=== PATIENT | male | born 1940 | race Caucasian/White ===

== ENCOUNTER 2018-02-04 13:18 | Observation (INO) | payer MEDICARE ==
--- NOTE | 2018-02-04 14:31 | RAD REPORT ---
EXAM DESCRIPTION: CT - Head Brain Wo Cont - 02/04/2018 2:23 pm CLINICAL HISTORY: Dizziness COMPARISON: 2013 TECHNIQUE: Computed axial tomography of the head was obtained. IV contrast was not requested. All CT scans are performed using dose optimization technique as appropriate and may include automated exposure control or mA/KV adjustment according to patient size. FINDINGS: An intracranial bleed is not seen . The ventricles are normal in caliber. No extra-axial fluid collection is noted. Fluid within the sinuses/ mastoids is not seen. IMPRESSION: No acute intracranial abnormality is seen. If patient's symptoms persist MRI of the bra in would be recommended.
[2018-02-04] MEDS ORDERED: NA CHLORIDE 0.9% 1,000 ML ONE (14:43)
[2018-02-04 14:56] LABS: Absolute Lymphocytes (CBC) 1.1 K/uL (0.7-4.9); Absolute Monocytes 0.4 K/uL (0.1-1.3); Absolute Neutrophil 2.8 K/uL (1.8-8.0); Basophils % 0.5 % (0-1.3); Eosinophils % 1.3 % (0-4.4); Hematocrit 37.9 % (39.6-49.0); Lymphocytes % 24.4 % (15.3-44.8); MCH 31.2 pg (27.0-35.0); MPV 8.5 fL (7.6-11.3); Monocytes % 8.2 % (3.3-12.3); RBC Red Blood Cell Count 4.12 M/uL (4.33-5.43)
--- NOTE | 2018-02-04 15:04 | RAD REPORT ---
EXAM DESCRIPTION: Corey Single View02/04/2018 2:57 pm CLINICAL HISTORY: Cough COMPARISON: 2013 FINDINGS: The lungs appear clear of acute infiltrate. The heart is normal size IMPRESSION: No acute abnormalities displayed
[2018-02-04 15:08] LABS: Protime INR 0.95
[2018-02-04 15:22] LABS: ALT/SGPT 8 U/L (12-78); AST/SGOT 15 U/L (15-37); Albumin 3.9 g/dL (3.4-5.0); Alkaline Phosphatase 85 U/L (45-117); BUN Blood Urea Nitrogen 12 mg/dL (7-18); Bicarbonate 26 mmol/L (21-32); Bilirubin Direct 0.1 mg/dL (0-0.2); Bilirubin Total 0.6 mg/dL (0.2-1.0); Glucose Level 116 mg/dL (74-106); Lipase 167 U/L (73-393); Magnesium 2.5 mg/dL (1.8-2.4); NT PRO-BNP 851 pg/mL (<450); Potassium 4.3 mmol/L (3.5-5.1); Protein, Total 7.3 g/dL (6.4-8.2); Sodium Level 134 mmol/L (136-145); Troponin (Emerg Dept Use Only) < 0.02 ng/mL (0.0-0.045)
--- NOTE | 2018-02-04 15:49 | ER ---
Nurse's Notes [facility] Name: Sumanth Louis Age: 77 yrs Sex: Male : 1940 Arrival Date: 02/04/2018 Time: 13:22 Bed 28 Private MD: Rafa Barnes Diagnosis: Parkinson's disease;Headache;Weakness;Unspecified kidney failure Presentation: 02/04 13:29 Presenting complaint: Child states: TROUBLE WALKING AND DIZZINESS. Transition of care: bp patient was not received from another setting of care. Onset of symptoms is unknown. Risk Assessment: Do you want to hurt yourself or someone else? Patient reports no desire to harm self or others. Initial Sepsis Screen: Does the patient meet any 2 criteria? No. Patient's initial sepsis screen is negative. Does the patient have a suspected source of infection? No. Patient's initial sepsis screen is negative. Care prior to arrival: None. 13:29 Method Of Arrival: Wheelchair bp 13:29 Acuity: IRINA 3 bp Triage Assessment: 13:31 General: Appears in no apparent distress. comfortable, unkempt, Behavior is calm, bp cooperative. Pain: Denies pain. Historical: - Allergies: 13:31 No Known Allergies; bp - Home Meds: 13:34 carbidopa-levodopa 50-200 mg Oral TbER 1 tab 3 times per day [Active]; bp - PMHx: 13:31 Parkinsons; Hernia; bp - Immunization history:: Adult Immunizations up to date. - Social history:: Smoking status: Patient/guardian denies using tobacco. - Ebola Screening: : Patient negative for fever greater than or equal to 101.5 degrees Fahrenheit, and additional compatible Ebola Virus Disease symptoms Patient denies exposure to infectious person Patient denies travel to an Ebola-affected area in the 21 days before illness onset No symptoms or risks identified at this time. Screenin:36 Abuse screen: Denies threats or abuse. Nutritional screening: No deficits noted. tw2 Tuberculosis screening: No symptoms or risk factors identified. Fall Risk None identified. Assessment: 14:04 General: Appears slender, unkempt, well developed, well nourished, Behavior is calm, tl3 cooperative, appropriate for age. Pain: Denies pain. Neuro: Level of Consciousness is awake, alert, obeys commands, Oriented to person, place, time, situation, pt states he has problems talking, family states this is pt norm with Parkinson's . Neuro: Reports dizziness. Cardiovascular: Patient's skin is warm and dry. Rhythm is regular. Respiratory: Airway is patent Respiratory effort is even, unlabored, Respiratory pattern is regular, symmetrical. GI: Reports constipation. : No signs and/or symptoms were reported regarding the genitourinary system. EENT: No signs and/or symptoms were reported regarding the EENT system. Derm: Skin is fragile. Musculoskeletal: Reports weakness in right leg and left leg. 15:55 Reassessment: Patient appears in no apparent distress at this time. No changes from tl3 previously documented assessment. Patient and/or family updated on plan of care and expected duration. Pain level reassessed. Patient is alert, oriented x 3, equal unlabored respirations, skin warm/dry/pink. 16:50 Reassessment: Patient appears in no apparent distress at this time. No changes from tl3 previously documented assessment. Patient and/or family updated on plan of care and expected duration. Pain level reassessed. Patient is alert, oriented x 3, equal unlabored respirations, skin warm/dry/pink. Vital Signs: 13:31 BP 95 / 65; Pulse 63; Resp 18; Temp 97.7; Pulse Ox 100% ; Weight 63.5 kg; Height 5 ft. bp 8 in. (172.72 cm); 14:04 BP 126 / 66; Pulse 61; Resp 18; Pulse Ox 100% on R/A; tl3 15:55 BP 186 / 87; Pulse 68; Resp 18; Pulse Ox 100% on R/A; tl3 16:50 BP 180 / 88; Pulse 78; Resp 18; Pulse Ox 100% ; tl3 13:31 Body Mass Index 21.29 (63.50 kg, 172.72 cm) bp ED Course: 13:22 Patient arrived in ED. as 13:22 Rafa Barnes DO is Private Physician. as 13:30 Triage completed. bp 13:31 Arm band placed on left wrist. bp 13:36 Placed in gown. Adult w/ patient. 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 Pulse ox on. NIBP on. tw2 14:04 Jessica Richter, SOCORRO is Primary Nurse. tl3 14:04 No provider procedures requiring assistance completed. Initial lab(s) drawn, by me. tl3 Inserted saline lock: 20 gauge in right antecubital area, using aseptic technique. Blood collected. 14:06 Wood Henry MD is Attending Physician. abhi 14:22 CT Head Brain wo Cont In Process Unspecified. EDMS 14:22 CT completed. Patient tolerated procedure well. Patient moved to CT via wheelchair. sj Patient taken to ultrasound. Patient moved back from CT. 14:48 US Carotid Artery Bilateral In Process Unspecified. EDMS 14:57 XRAY Chest (1 view) In Process Unspecified. EDMS 14:57 Ultrasound completed. Patient tolerated well. aa4 15:38 EKG done, by sterile process tech. reviewed by Wood Henry MD. 3 15:48 Juan Diego Mccormick MD is Hospitalizing Provider. abhi 16:44 MRI Stroke Protocol Sent. tl3 16:50 Patient admitted, IV remains in place. tl3 Administered Medications: 15:00 Drug: NS 0.9% 1000 ml Route: IV; Rate: 125 ml/hr; Site: right antecubital; Delivery: tl3 Primary tubing; 16:58 Follow up: IV Status: Infusion continued upon admission; IV Intake: 500ml tl3 15:41 Drug: NS 0.9% 500 ml Volume: 500 ml; Route: IV; Rate: 1 bolus; Site: right antecubital; tl3 Delivery: Primary tubing; 16:59 Follow up: IV Status: Completed infusion; IV Intake: 500ml tl3 15:45 Drug: foLIC Acid 1 mg Route: IVPB; Site: right antecubital; Delivery: Primary tubing; tl3 15:57 Follow up: IV Status: Completed infusion; IV Intake: 0.2ml tl3 15:56 Drug: Aspirin Chewable Tablet 162 mg Route: PO; tl3 15:57 Follow up: Response: No adverse reaction tl3 Intake: 15:57 IV: 0ml; Total: 0ml. tl3 16:58 IV: 500ml; Total: 500ml. tl3 16:59 IV: 500ml; Total: 1000ml. tl3 Outcome: 15:49 Decision to Hospitalize by Provider. abhi 16:50 Admitted to Tele accompanied by tech, via wheelchair, with chart, Report called to Chandrika Ibrahim RN 16:50 Condition: stable 16:50 Instructed on the need for admit. 17:01 Patient left the ED. tl3 Signatures: Dispatcher [employer] EDMS Wood Henry MD MD cha Jones, Josselin Corona Amanda aa4 Marci Marr RN RN tw2 Uziel Ochoa RN RN bp Jessica Richter RN RN tl3 Corrine Montenegro 3
--- NOTE | 2018-02-04 15:49 | EDPHYS ---
Physician Documentation [facility] Name: Sumanth Louis Age: 77 yrs Sex: Male : 1940 Arrival Date: 02/04/2018 Time: 13:22 Bed 28 Private MD: Rafa Barnes ED Physician Wood Henry HPI: 02/04 15:34 This 77 yrs old Male presents to ER via Wheelchair with complaints of abhi Dizziness, Trouble Walking. 15:34 The patient presents with dizziness, generalized weakness. Onset: The symptoms/episode abhi began/occurred 2 week(s) ago. Context: occurred at home, occurred while the patient was unk. Modifying factors: The symptoms are alleviated by closing eyes, the symptoms are aggravated by nothing. Associated signs and symptoms: Pertinent positives: nausea. Severity of symptoms: At their worst the symptoms were mild moderate in the emergency department the symptoms are unchanged. Patient's baseline: Neuro: alert and fully oriented. The patient has experienced similar episodes in the past, several times. Historical: - Allergies: 13:31 No Known Allergies; bp - Home Meds: 13:34 carbidopa-levodopa 50-200 mg Oral TbER 1 tab 3 times per day [Active]; bp - PMHx: 13:31 Parkinsons; Hernia; bp - Immunization history:: Adult Immunizations up to date. - Social history:: Smoking status: Patient/guardian denies using tobacco. - Ebola Screening: : Patient negative for fever greater than or equal to 101.5 degrees Fahrenheit, and additional compatible Ebola Virus Disease symptoms Patient denies exposure to infectious person Patient denies travel to an Ebola-affected area in the 21 days before illness onset No symptoms or risks identified at this time. ROS: 15:36 Constitutional: Negative for fever, chills, and weight loss, Eyes: Negative for injury, abhi pain, redness, and discharge, ENT: Negative for injury, pain, and discharge, Neck: Negative for injury, pain, and swelling, Cardiovascular: Negative for chest pain, palpitations, and edema, Respiratory: Negative for shortness of breath, cough, wheezing, and pleuritic chest pain, Abdomen/GI: Negative for abdominal pain, nausea, vomiting, diarrhea, and constipation, Back: Negative for injury and pain, : Negative for injury, bleeding, discharge, and swelling, MS/Extremity: Negative for injury and deformity, Skin: Negative for injury, rash, and discoloration, Psych: Negative for depression, anxiety, suicide ideation, homicidal ideation, and hallucinations, Allergy/Immunology: Negative for hives, rash, and allergies, Endocrine: Negative for neck swelling, polydipsia, polyuria, polyphagia, and marked weight changes. 15:36 Neuro: Positive for dizziness, gait disturbance, headache, tremor. Exam: 15:36 Constitutional: This is a well developed, well nourished patient who is awake, alert, abhi and in no acute distress. Head/Face: Normocephalic, atraumatic. Eyes: Pupils equal round and reactive to light, extra-ocular motions intact. Lids and lashes normal. Conjunctiva and sclera are non-icteric and not injected. Cornea within normal limits. Periorbital areas with no swelling, redness, or edema. ENT: Nares patent. No nasal discharge, no septal abnormalities noted. Tympanic membranes are normal and external auditory canals are clear. Oropharynx with no redness, swelling, or masses, exudates, or evidence of obstruction, uvula midline. Mucous membranes moist. Neck: Trachea midline, no thyromegaly or masses palpated, and no cervical lymphadenopathy. Supple, full range of motion without nuchal rigidity, or vertebral point tenderness. No Meningismus. Chest/axilla: Normal chest wall appearance and motion. Nontender with no deformity. No lesions are appreciated. Cardiovascular: Regular rate and rhythm with a normal S1 and S2. No gallops, murmurs, or rubs. Normal PMI, no JVD. No pulse deficits. Respiratory: Lungs have equal breath sounds bilaterally, clear to auscultation and percussion. No rales, rhonchi or wheezes noted. No increased work of breathing, no retractions or nasal flaring. Abdomen/GI: Soft, non-tender, with normal bowel sounds. No distension or tympany. No guarding or rebound. No evidence of tenderness throughout. Back: No spinal tenderness. No costovertebral tenderness. Full range of motion. Male : Normal genitalia with no discharge or lesions. Skin: Warm, dry with normal turgor. Normal color with no rashes, no lesions, and no evidence of cellulitis. MS/ Extremity: Pulses equal, no cyanosis. Neurovascular intact. Full, normal range of motion. Psych: Awake, alert, with orientation to person, place and time. Behavior, mood, and affect are within normal limits. 15:36 Neuro: Orientation: appropriate for stated age, no acute changes, to person, place, time \T\ situation. Mentation: no acute changes, responsive to voice Memory: unable to test, Cranial nerves: grossly normal, is grossly normal based on the patient's age, no acute changes, CN I not tested, CN II- XII are normal as tested, Cerebellar function: unable to test, Motor: moves all fours, Sensation: no obvious gross deficits, appropriate no acute changes, Gait: not tested. Deep tendon reflexes are 2+ (normal) in the bilateral brachioradialis, bicep, tricep and patellar and Achilles tendons, Babinski testing is normal, seizure activity, is not displayed by the patient. Vital Signs: 13:31 BP 95 / 65; Pulse 63; Resp 18; Temp 97.7; Pulse Ox 100% ; Weight 63.5 kg; Height 5 ft. bp 8 in. (172.72 cm); 14:04 BP 126 / 66; Pulse 61; Resp 18; Pulse Ox 100% on R/A; tl3 15:55 BP 186 / 87; Pulse 68; Resp 18; Pulse Ox 100% on R/A; tl3 16:50 BP 180 / 88; Pulse 78; Resp 18; Pulse Ox 100% ; tl3 13:31 Body Mass Index 21.29 (63.50 kg, 172.72 cm) bp MDM: 14:06 Patient medically screened. [facility] 15:37 Data reviewed: vital signs, nurses notes, lab test result(s), EKG, radiologic studies, [facility] CT scan, plain films. 02/04 14:08 Order name: Basic Metabolic Panel; Complete Time: 15:27 [facility] 02/04 14:08 Order name: CBC with Diff; Complete Time: 15:27 [facility] 02/04 14:08 Order name: LFT's; Complete Time: 15:27 [facility] 02/04 14:08 Order name: Magnesium; Complete Time: 15:27 [facility] 02/04 14:08 Order name: NT PRO-BNP; Complete Time: 15:27 [facility] 02/04 14:08 Order name: PT-INR; Complete Time: 15:27 [facility] 02/04 14:08 Order name: Troponin (emerg Dept Use Only); Complete Time: 15:27 [facility] 02/04 14:08 Order name: XRAY Chest (1 view); Complete Time: 15:27 [facility] 02/04 14:08 Order name: CT Head Brain wo Cont; Complete Time: 15:27 [facility] 02/04 14:08 Order name: Lipase; Complete Time: 15:27 [facility] 02/04 14:08 Order name: Urine Culture [facility] 02/04 14:08 Order name: MRI Stroke Protocol [facility] 02/04 14:09 Order name: US Carotid Artery Bilateral [facility] 02/04 14:08 Order name: EKG; Complete Time: 14:08 [facility] 02/04 14:08 Order name: Cardiac monitoring; Complete Time: 14:12 [facility] 02/04 14:08 Order name: EKG - Nurse/Tech; Complete Time: 15:29 [facility] 02/04 14:08 Order name: IV Saline Lock; Complete Time: 14:13 [facility] 02/04 14:08 Order name: Labs collected and sent; Complete Time: 14:13 [facility] 02/04 14:08 Order name: O2 Per Protocol; Complete Time: 14:13 [facility] 02/04 14:08 Order name: O2 Sat Monitoring; Complete Time: 14:13 [facility] 02/04 15:59 Order name: CONS Physician Consult; Complete Time: 16:58 EDMS Administered Medications: 15:00 Drug: NS 0.9% 1000 ml Route: IV; Rate: 125 ml/hr; Site: right antecubital; Delivery: tl3 Primary tubing; 16:58 Follow up: IV Status: Infusion continued upon admission; IV Intake: 500ml tl3 15:41 Drug: NS 0.9% 500 ml Volume: 500 ml; Route: IV; Rate: 1 bolus; Site: right antecubital; tl3 Delivery: Primary tubing; 16:59 Follow up: IV Status: Completed infusion; IV Intake: 500ml tl3 15:45 Drug: foLIC Acid 1 mg Route: IVPB; Site: right antecubital; Delivery: Primary tubing; tl3 15:57 Follow up: IV Status: Completed infusion; IV Intake: 0.2ml tl3 15:56 Drug: Aspirin Chewable Tablet 162 mg Route: PO; tl3 15:57 Follow up: Response: No adverse reaction tl3 Disposition: 02/04/18 15:49 Hospitalization ordered by Juan Diego Mccormick for Observation. Preliminary diagnosis are Parkinson's disease, Headache, Weakness, Unspecified kidney failure. - Bed requested for Telemetry/MedSurg (observation). - Status is Observation. tl3 - Condition is Stable. - Problem is new. - Symptoms have improved. UTI on Admission? No Signatures: Dispatcher [employer] EDMS Verna Hwang Corey, MD MD cha Peltier, Brian, RN RN Jessica Richter RN RN tl3 Corrections: (The following items were deleted from the chart) 16:06 15:49 Hospitalization Ordered by Juan Diego Mccormick MD for Observation. Preliminary abhi diagnosis is Parkinson's disease; Headache; Weakness. Bed requested for Telemetry/MedSurg (observation). Status is Observation. Condition is Stable. Problem is new. Symptoms have improved. UTI on Admission? No. abhi 16:39 16:06 02/04/2018 15:49 Hospitalization Ordered by Juan Diego Mccormick MD for Observation. bd Preliminary diagnosis is Parkinson's disease; Headache; Weakness; Unspecified kidney failure. Bed requested for Telemetry/MedSurg (observation). Status is Observation. Condition is Stable. Problem is new. Symptoms have improved. UTI on Admission? No. abhi 17:01 16:39 02/04/2018 15:49 Hospitalization Ordered by Juan Diego Mccormick MD for Observation. tl3 Preliminary diagnosis is Parkinson's disease; Headache; Weakness; Unspecified kidney failure. Bed requested for Telemetry/MedSurg (observation). Status is Observation. Condition is Stable. Problem is new. Symptoms have improved. UTI on Admission? No. bin
[2018-02-04] MEDS ORDERED: FOLIC ACID 5 MG/ML VIAL ONE (15:51)
[2018-02-04] MEDS ORDERED: ONDANSETRON 4 MG/2 ML VIAL IV PRN (16:26)
--- NOTE | 2018-02-04 17:04 | EKG ---
Test Date: 2018-02-04 Test Time: 15:15:37 Shredder Tender: SONY MEASUREMENT RESULTS: Intervals: Rate: 56 MS: 138 QRSD: 98 QT: 476 QTc: 459 [place]: P: 51 MS: 138 QRS: 39 T: 74 INTERPRETIVE STATEMENTS: Sinus bradycardia Otherwise normal ECG Compared to ECG 08/24/2013 14:46:55 Sinus rhythm no longer present Electronically Signed On 02-04-18 17:03:15 CDT by Rex Dumont
[2018-02-04 18:30] VITALS: BMI 21.2
[2018-02-04] MEDS: ENOXAPARIN 40 MG/0.4 ML SQ SCH (18:43)
[2018-02-04] MEDS: NA CHLORIDE 0.9% 1,000 ML IV SCH (18:44)
--- NOTE | 2018-02-04 19:42 | RAD REPORT ---
EXAM DESCRIPTION: USCarotid Artery Herpakvdb89/9/2018 2:52 pm CLINICAL HISTORY: Syncope/ataxia COMPARISON: None FINDINGS: The velocity of the right internal carotid artery equals 66 cm/sec. The right ICA/CCA rati o 0 0.9 The velocity of the left internal carotid artery equals 51 cm/sec. The left ICA/CCA ratio 1.491 Right common carotid artery is tortuous. Mild to moderate plaque is present within the left internal carotid artery. Mild plaque is present within remainder the carotid arteries The vertebral arteries demonstrate antegrade flow IMPRESSION: Mild to moderate plaque within the carotid arteries without evidence of a hemodynamicall y significant stenosis
[2018-02-04] MEDS: ATORVASTATIN 40 MG TAB PO SCH (21:00)
--- NOTE | 2018-02-04 21:26 | RAD REPORT ---
EXAM DESCRIPTION: MRI - Brain Wo Cont - 02/04/2018 9:11 pm CLINICAL HISTORY: Ataxia and dizziness COMPARISON: 02/04/[address] TECHNIQUE: Axial, sagittal, and coronal magnetic images of the brain were obtained. Contrast was not requested FINDINGS: No abnormal signal is present within the brain. Diffusion-weighted/ADC mapping does not reveal evidence of acute infarction. The ventricles are normal caliber. An extra-axial fluid collection is not present The sinuses and mastoids are clear. IMPRESSION: Unremarkable unenhanced brain MRI
--- NOTE | 2018-02-04 21:31 | RAD REPORT ---
EXAM DESCRIPTION: MRI - MRA Head Wo Cont - 02/04/2018 9:11 pm CLINICAL HISTORY: Ataxia COMPARISON: None. TECHNIQUE: Magnetic resonance angiogram of the head was performed. Source images were reviewed and reconstructed at 360 degrees rotation. FINDINGS: The visualized anterior cerebral, middle cerebral, posterior cerebral, basilar and distal internal carotid arteries do not demonstrate a significant stenosis. An aneurysm is not seen IMPRESSION: Unremarkable MRA head
[2018-02-04] MEDS ORDERED: MORPHINE 2 MG/ML SYR IV PRN (22:28)
[2018-02-05 04:30] LABS: Albumin 3.3 g/dL (3.4-5.0); Bilirubin Total 0.6 mg/dL (0.2-1.0); Magnesium 2.2 mg/dL (1.8-2.4); Phosphorus 2.7 mg/dL (2.5-4.9); Potassium 4.1 mmol/L (3.5-5.1); Protein, Total 6.3 g/dL (6.4-8.2)
[2018-02-05 04:48] LABS: Absolute Lymphocytes (CBC) 1.9 K/uL (0.7-4.9); Absolute Monocytes 0.5 K/uL (0.1-1.3); Absolute Neutrophil 2.3 K/uL (1.8-8.0); Basophils % 0.5 % (0-1.3); Eosinophils % 2.7 % (0-4.4); Hematocrit 35.8 % (39.6-49.0); Lymphocytes % 39.1 % (15.3-44.8); MCH 32.1 pg (27.0-35.0); MCV 91.7 fL (80-100); MPV 8.6 fL (7.6-11.3); Monocytes % 10.2 % (3.3-12.3)
[2018-02-05] MEDS: NA CHLORIDE 0.9% 1,000 ML IV SCH (05:19)
--- NOTE | 2018-02-05 08:34 | P.HP ---
Certification for Inpatient Patient admitted to: Observation With expected LOS: <2 Midnights Practitioner: I am a practitioner with admitting privileges, knowledge of patient current condition, hospital course, and medical plan of care. Services: Services provided to patient in accordance with Admission requirements found in Title 42 Section 412.3 of the Code of Federal Regulations Patient History Date of Service: 02/04/18 Reason for admission: Patient w/ ataxia and dizziness History of Present Illness: Patient is a 77-year-old gentleman with a history of Parkinson's disease. Family brought him into the hospital because over the last 2 weeks they have noticed that he has had more dizziness and ataxic gait. He has also has some dysarthria. This may be just progression of his Parkinson's. However, this was more rapid than they were expected so they brought him in for evaluation. In the emergency room he had multiple diagnostic studies. There has been no acute findings. He also had an MRI of the brain which was negative. Patient will be admitted to the hospital for further evaluation. Allergies No Known Allergies Allergy (Unverified 02/04/18 17:35) Home Medications: Carbidopa/Levodopa [Carbidopa-Levo ER 50-200 Tab] 1 tab PO TID 02/04/18 - Past Medical/Surgical History Has patient received pneumonia vaccine in the past: No Diabetic: No -: Parkinsons -: Hernia -: Macular degeneration -: Skin Ca -: Appendectomy - Family History Father Family History: Reviewed- Non-Contributory - Social History Smoking Status: Former smoker Alcohol use: No CD- Drugs: No Caffeine use: Yes Place of Residence: Home Review of Systems is unable to be obtained Physical Examination - Vital Signs Temperature: 97.8 F Blood Pressure: 164/70 Pulse: 63 Respirations: 18 Pulse Ox (%): 98 - Physical Exam General: Alert, In no apparent distress, Oriented x1 HEENT: Atraumatic, PERRLA, Mucous membr. moist/pink, EOMI, Sclerae nonicteric Neck: Supple, 2+ carotid pulse no bruit, No LAD, Without JVD or thyroid abnormality Respiratory: Clear to auscultation bilaterally, Normal air movement Cardiovascular: Regular rate/rhythm, Normal S1 S2, No murmurs Gastrointestinal: Normal bowel sounds, Soft and benign, Non-distended, No tenderness Musculoskeletal: No clubbing, No swelling, No tenderness Integumentary: No rashes Neurological: Normal gait, Normal speech, Normal strength at 5/5 x4 extr, Normal tone, Sensation intact, Cranial nerves 3-12 intact, Normal affect Lymphatics: No axilla or inguinal lymphadenopathy - Studies Laboratory Data (last 24 hrs) 02/04/18 13:50: PT 11.2, INR 0.95 02/04/18 13:50: WBC 4.3, Hgb 12.9 L, Hct 37.9 L, Plt Count 196 02/04/18 13:50: Sodium 134 L, Potassium 4.3, BUN 12, Creatinine 1.70 H, Glucose 116 H, Magnesium 2.5 H, Total Bilirubin 0.6, AST 15, ALT 8 L, Alkaline Phosphatase 85, Lipase 167 Assessment & Plan - Problems (Diagnosis) (1) Ataxia Current Visit: Yes Status: Acute (2) Vertigo Current Visit: Yes Status: Acute (3) Parkinsons disease Current Visit: Yes Status: Acute (4) Dysarthria Current Visit: Yes Status: Acute - Plan 1. Physical therapy evaluation 2. Speech therapy evaluation 3. Anti-platelet therapy and statin therapy 4. Lipid profile in the morning 5. MRI of the brain was unremarkable. Will also order echocardiogram/carotid Doppler 6. Pending physical therapy evaluation may need inpatient rehab versus home health with physical therapy 7. Neurology consultation 8. GI and DVT prophylaxis Discharge Plan: Home Plan to discharge in: 48 Hours - Advance Directives Does patient have a Living Will: No Does patient have a Durable POA for Healthcare: No - Code Status/Comfort Care Code Status Assessed: Yes Code Status: Full Code Critical Care: No Time Spent Managing PTS Care (In Minutes): 50
[2018-02-05] MEDS ORDERED: PNEUMOCOCCAL VACCINE 0.5 ML IMVAC ONE (09:00)
[2018-02-05] MEDS ORDERED: INFLUENZA VACCINE (for 3y+) 0.5 ML DOSE IMVAC ONE (09:00)
--- NOTE | 2018-02-05 09:19 | P.PN ---
Subjective Date of Service: 02/05/18 Primary Care Provider: Neurology-Dr. Grimes Chief Complaint: Patient w/ ataxia and dizziness Subjective: Other (Patient stable at this time. No significant dizziness reported by patient. No chest pain noted.) Physical Examination - Vital Signs Temperature: 97.8 F Blood Pressure: 164/70 Pulse: 63 Respirations: 18 Pulse Ox (%): 98 - Physical Exam General: Alert, In no apparent distress, Oriented x3, Cooperative HEENT: Atraumatic Neck: Supple Respiratory: Clear to auscultation bilaterally, Normal air movement Cardiovascular: Normal pulses, Regular rate/rhythm Gastrointestinal: Normal bowel sounds, Soft and benign, Non-distended, No tenderness, No masses, No rebound, No guarding Musculoskeletal: No erythema, No tenderness, No warmth Integumentary: No tenderness/swelling, No erythema, No warmth, No cyanosis Neurological: Normal speech, Normal strength at 5/5 x4 extr, Normal tone, Normal affect - Studies Laboratory Data (last 24 hrs) 02/04/18 13:50: PT 11.2, INR 0.95 02/04/18 13:50: WBC 4.3, Hgb 12.9 L, Hct 37.9 L, Plt Count 196 02/04/18 13:50: Sodium 134 L, Potassium 4.3, BUN 12, Creatinine 1.70 H, Glucose 116 H, Magnesium 2.5 H, Total Bilirubin 0.6, AST 15, ALT 8 L, Alkaline Phosphatase 85, Lipase 167 Medications List Reviewed: Yes Assessment & Plan Discharge Plan: Home Plan to discharge in: 24 Hours Physician Review Additional Text: Impression: Dizziness, ataxia with headaches likely from dehydration with noted acute renal insufficiency with underlying Parkinson's disease Hypertension Hyperlipidemia Anemia, mild likely of chronic disease Carotid arterial disease Plan: Dizziness, ataxia with headaches likely from dehydration with noted acute renal insufficiency with underlying Parkinson's disease: Renal function has improved with IV hydration. Will continue with this. Will restart his Parkinson's medication. MRI/MRA brain and neck unremarkable. Patient has carotid disease but no significant stenosis. Patient now on aspirin, statin medication and blood pressure medication. Neurology consulted to further assess. Patient is seen by neurology as an outpatient. Will have physical therapy and occupational therapy assess ambulation. Patient may require home health and physical therapy at discharge. Will reassess after physical therapy to determine plan of care. Will discuss with Neurology later. Hypertension: Blood pressure elevated. Patient not on any medication at home. Will start lisinopril 10 mg daily. Will monitor and adjust appropriately. Hyperlipidemia: LDL elevated at 155. Will start Lipitor. Anemia, mild likely of chronic disease: Mild anemia noted. Will check iron and B12 studies. Carotid arterial disease: Patient now on aspirin, statin medication and blood pressure medication. This can be followed up as an outpatient. I will turn the service over to Dr. Eng tomorrow. I will go over the plan of care with her. Time Spent Managing Pts Care (In Minutes): 55
[2018-02-05] MEDS: ENOXAPARIN 40 MG/0.4 ML SQ SCH (09:59)
[2018-02-05] MEDS: ASPIRIN EC 81 MG TAB PO SCH (09:59)
[2018-02-05] MEDS: CARBIDOPA LEVO PO SCH ×3 (09:59→20:08)
[2018-02-05] MEDS: FOLIC ACID 1 MG TABLET PO SCH (10:00)
[2018-02-05] MEDS: LISINOPRIL 10 MG TAB PO SCH (10:00)
[2018-02-05 10:09] LABS: Ferritin 143.5 ng/mL (26-388); Thyroid Stimulating Hormone 1.44 uIU/mL (0.360-3.740)
[2018-02-05] MEDS ORDERED: MORPHINE 4 MG/ML SYR IV PRN (13:51)
--- NOTE | 2018-02-05 14:13 | ECHO ---
HEIGHT: 5 ft 8 in WEIGHT: 140 lb 0 oz DATE OF STUDY: 02/05/[address]: Juan Diego Mccormick MD 2-DIMENSIONAL: YES M.MODE: YES DOPPLER: YES COLOR FLOW: YES TDS: NO PORTABLE: NO DEFINITY: NO BUBBLE STUDY: NO DIAGNOSIS: STROKE CARDIAC HISTORY: CATHERIZATION: NO SURGERY: NO PROSTHETIC VALVE: NO PACEMAKER: NO MEASUREMENTS (cm) DIASTOLIC (NORMALS) SYSTOLIC (NORMALS) IVSd 0.9 (0.6-1.2) LA Diam (1.9-4.0) LVEF 72% LVIDd 3.8 (3.5-5.7) LVIDs 2.3 (2.0-3.5) %FS 41% LVPWd 0.9 (0.6-1.2) Ao Diam 3.2 (2.0-3.7) 2 DIMENSIONAL ASSESSMENT: RIGHT ATRIUM: NORMAL LEFT ATRIUM: DILATED RIGHT VENTRICLE: NORMAL LEFT VENTRICLE: NORMAL TRICUSPID VALVE: NORMAL MITRAL VALVE: NORMAL PULMONIC VALVE: NORMAL AORTIC VALVE: SCLEROSIS PERICARDIAL EFFUSION: NONE AORTIC ROOT: NORMAL LEFT VENTRICULAR WALL MOTION: NORMAL DOPPLER/COLOR FLOW: MILD AORTIC, MITRAL AND TRICUSPID REGURGITATION. NORMAL RIGHT VENTRICULAR SYSTOLIC PRESSURE. NO SIGN AORTIC STENOSIS. COMMENTS: NORMAL LEFT VENTRICULAR EJECTION FRACTION. DILATED LEFT ATRIUM. AORTIC SCLEROSIS WITH NO AORTIC STENOSIS. MILD AORTIC, MITRAL AND TRICUSPID REGURGITATION. TECHNOLOGIST: Janneth GRAHAM
[2018-02-05] MEDS: ACETAMINOPHEN 500 MG TAB PO PRN ×2 (14:37→18:50)
--- NOTE | 2018-02-05 19:22 | CON ---
Date of Consultation: 02/05/2018 Reason For Consult: Acute renal insufficiency. History Of Present Illness: Mr. Louis is a 77-year-old male with a past medical history significant for history of Parkinson disease on carbidopa levodopa, [facility] with complaints of dizziness and trouble walking. The patient states that he has had increased john cricket, gait disturbances, and was noted to have dehydration and hence admitted to the hospital for furt her evaluation. Past Medical History: Significant for history of Parkinson disease. Unable to obtain details from t he patient at this time. Much of the history is obtained from review of chart. Social History: The patient apparently lives at home. Unknown smoking and alcohol history at this t ata. Review of Systems: Positive for weakness and lethargy, is complaining of some headache as well. All other review of sys tems are negative. Family History: Noncontributory. Physical Examination: Vital Signs: Showing temperature of 97.4, pulse rate of 60, respiratory rate of 16, and blood pressu re of 135/67, previously was running in the 160s to 180s. General: He appears weak and cachectic. HEENT: Atraumatic head. Oral mucosa was dry. Abdomen: Soft and nontender. Heart: Auscultation of the heart revealed regular rate and rhythm. Extremities: Without any evidence of edema. Laboratory Data: Showing sodium improving to 137 from 134, creatinine improving to 1.1 from 1.7. Ot her electrolytes are stable. CBC showing stable hemoglobin, hematocrit, and platelet count. Current Medications: Include carbidopa levodopa, atorvastatin, aspirin, lisinopril 10 mg a day. Impression: 1.Acute renal insufficiency secondary to acute tubular necrosis from dehydration, currently with imp roving renal function. IV fluids can be discontinued at this time. 2.Parkinson's with worsening symptoms. The patient has had worsening symptoms of Parkinson's, possi denzel related to dehydration. We will also go ahead and will also need to order urine studies to make sure that he does not have any evidence of any urine infection that could have led to worsening of hi s Parkinson's. 3.Hypertension. The patient is on lisinopril. Since his renal function has returned down to baseli ne, we can continue that with holding parameters. 4.Gait abnormalities related to Parkinson's. Plan: The patient is overall clinically stable at this time. I will go ahead and discontinue IV flu ids and continue lisinopril and monitor him closely. Encourage p.o. intake, and will follow up on urinalysis results. Thank you very much for this consultation. Please do not hesitate to call us with any questions or c oncerns. DAVID/ANNIE Voice ID: [id number] Report ID: [id number]
[2018-02-05] MEDS: ATORVASTATIN 40 MG TAB PO SCH (20:08)
--- NOTE | 2018-02-06 00:18 | CON ---
Date of Consultation: 02/05/2018 Reason: Parkinson's, gait difficulties. History: A 77-year-old gentleman, whom I have seen once in the office about 4 months ago. He had Pa rkinson's disease, history of dementia. We felt he was underdosed. Carbidopa, levodopa were increas ed to 50/200 three times daily. He was not returned to the office, [facility] 1-2 weeks of progressive gait difficulties and falling with ataxia. Workup in the emergency department was largely unrevealing, although he did have some significant renal insufficiency with a creatinine of 1.7, down to 1.1 today. Creatinine back in 2013 was 0.95. He has been seen by Nephrol [facility] for acute renal insufficiency, acute tubular necrosis, and volume depletion. The patient has imp roved. Brain MRI, no stroke; MRA, and no stenosis. Carotid Doppler, mild plaquing, no hemodynamical ly significant stenosis. EKG, sinus rhythm. Chest x-ray, negative. The patient also notices some s wallowing difficulties, which can occur with Parkinson's as well. Echo, normal. As noted, there was initially a concern for stroke, but it is not present on imaging or on exam. Consultation was reque sted. Past Medical History: As alluded to. Routine Home Medications: Sinemet CR 50/200 t.i.d. Allergies: NONE. Social History: Does not smoke. Requires assistance with activities of daily. Family History: Noncontributory. Review of Systems: General: Chronically ill. Eyes: Negative. Ears, Nose, and Throat: Negative. Cardiovascular: Negative. Pulmonary: Negative. GI: Negative. : Negative. Musculoskeletal: Arthralgias. Neurologic: As noted. Psychiatric: Memory loss. Endocrine: Negative. Hematologic: Negative. Physical Examination: Vital Signs: 98, 57, 16, and 119/60. Neurologic: Pleasant gentleman, lying in bed, in no distress. Awake, alert, and oriented. Moderate masking, hypophonia. Decreased blink rate. Pupils reactive. Ocular motion full. Griffin full. Fa ce symmetric. Tongue midline. Soft palate elevates bilaterally. Extremity strength full. No tremo r. Moderate bilateral cogwheeling and bradykinesia. Sensation intact. Reflexes 1/4. Toes are down going. Pertinent Laboratory Data: As noted in history of present illness. No evidence for stroke. White c ount is normal. Creatinine is improved. Impression: Parkinson's disease, ataxia likely from Parkinson's and volume depletion/acute renal ins ufficiency. Plan: The patient still appears to be underdosed on his antiparkinsonian medications. That being sa id, there is no evidence of acute stroke or other acute difficulties presently. We would continue as pirin on discharge, statin on discharge. Continue the Sinemet. We can see him back in the office an d adjust his antiparkinsonian medications further. Thank you for the consult. WHITNEY/ANNIE Voice ID: [id number] Report ID: [id number]
[2018-02-06 04:23] LABS: Phosphorus 2.8 mg/dL (2.5-4.9); Potassium 3.9 mmol/L (3.5-5.1)
[2018-02-06] MEDS ORDERED: POTASSIUM 25 MEQ EFFERV TAB PO ONE (06:02)
[2018-02-06 06:50] LABS: Urine Appearance CLEAR; Urine Bilirubin NEGATIVE (NEG); Urine Blood NEGATIVE (NEG); Urine Color YELLOW; Urine Glucose NEGATIVE (NEG); Urine Protein NEGATIVE (NEG)
[2018-02-06 07:36] LABS: Urine RBC <5 /HPF (NONE SEEN)
[2018-02-06 07:37] LABS: Urine Bacteria NONE SEEN /HPF (NONE SEEN); Urine Culture Reflex Order NOT NEEDED
[2018-02-06] MEDS: ASPIRIN EC 81 MG TAB PO SCH (08:41)
[2018-02-06] MEDS: LISINOPRIL 10 MG TAB PO SCH (08:41)
[2018-02-06] MEDS: ACETAMINOPHEN 500 MG TAB PO PRN ×2 (08:41→15:09)
[2018-02-06] MEDS: ENOXAPARIN 40 MG/0.4 ML SQ SCH (08:41)
[2018-02-06] MEDS: FOLIC ACID 1 MG TABLET PO SCH (08:42)
[2018-02-06] MEDS: CARBIDOPA LEVO PO SCH ×3 (08:45→21:46)
--- NOTE | 2018-02-06 12:56 | P.DS ---
Admission Date: 02/04/18 Discharge Date: 02/06/18 Primary Care Provider: Neurology-Dr. Grimes Disposition: ROUTINE DISCHARGE Discharge Condition: GOOD Reason for Admission: Patient w/ ataxia and dizziness Consultations: Neurology - Problems (1) Ataxia Onset Date: 02/05/18 Current Visit: Yes Status: Chronic (2) Dysarthria Onset Date: 02/05/18 Current Visit: Yes Status: Chronic (3) Parkinsons disease Onset Date: 02/05/18 Current Visit: Yes Status: Chronic (4) Vertigo Onset Date: 02/05/18 Current Visit: Yes Status: Chronic Brief History of Present Illness: A 77-year-old gentleman, whom I have seen once in the office about 4 months ago. He had Parkinson's disease, history of dementia. We felt he was underdosed. Carbidopa, levodopa were increased to 50/200 three times daily. He was not returned to the office, brought to the emergency department with 1-2 weeks of progressive gait difficulties and falling with ataxia. Workup in the emergency department was largely unrevealing, although he did have some significant renal insufficiency with a creatinine of 1.7, down to 1.1 today. Creatinine back in 2013 was 0.95. He has been seen by Nephrology for acute renal insufficiency, acute tubular necrosis, and volume depletion. The patient has improved. Brain MRI, no stroke; MRA, and no stenosis. Carotid Doppler, mild plaquing, no hemodynamically significant stenosis. EKG, sinus rhythm. Chest x-ray, negative. The patient also notices some swallowing difficulties, which can occur with Parkinson's as well. Echo, normal. As noted, there was initially a concern for stroke, but it is not present on imaging or on exam. Consultation was requested. Hospital Course: Overall during the hospital stay patient remained stable The patient was initially admitted to the hospital for ataxia and dysarthria. Patient does have underlying disease of Parkinson's. CDU was to be ruled out. Head CT initially was negative. MRI was negative as well. Neurology was consulted who agreed with the plan of discharge the patient back home as this is patient's baseline. On the other workup here in the hospital was so negative TIA and CVA was ruled out. Patient was to follow up with Neurology in about 1-2 weeks post discharge. Patient is to continue taking his Parkinson medication. Patient was also recommended taking aspirin and Plavix along with high-dose statin to prevent CVA future. Patient was discharged home under stable condition in the care of his . Vital Signs/Physical Exam: Temp Pulse Resp BP Pulse Ox 98.1 F 70 18 115/63 100 02/06/18 12:00 02/06/18 12:00 02/06/18 12:00 02/06/18 12:00 02/06/18 12:00 General: Alert, In no apparent distress HEENT: Atraumatic, PERRLA, EOMI Neck: Supple, JVD not distended Respiratory: Clear to auscultation bilaterally, Normal air movement Cardiovascular: Regular rate/rhythm, Normal S1 S2 Gastrointestinal: Normal bowel sounds, No tenderness Musculoskeletal: No tenderness Integumentary: No rashes Neurological: Normal speech, Normal tone, Normal affect Lymphatics: No axilla or inguinal lymphadenopathy Laboratory Data at Discharge: WBC 4.9 K/uL (4.3-10.9) 02/05/18 03:35 Hgb 12.5 g/dL (13.6-17.9) L 02/05/18 03:35 Hct 35.8 % (39.6-49.0) L 02/05/18 03:35 Plt Count 172 K/uL (152-406) 02/05/18 03:35 PT 11.2 SECONDS (9.5-12.5) 02/04/18 13:50 INR 0.95 02/04/18 13:50 Sodium 136 mmol/L (136-145) 02/06/18 03:52 Potassium 3.9 mmol/L (3.5-5.1) 02/06/18 03:52 BUN 11 mg/dL (7-18) 02/06/18 03:52 Creatinine 1.10 mg/dL (0.55-1.3) 02/06/18 03:52 Glucose 104 mg/dL (74-106) 02/06/18 03:52 Phosphorus 2.8 mg/dL (2.5-4.9) 02/06/18 03:52 Magnesium 2.0 mg/dL (1.8-2.4) 02/06/18 03:52 Total Bilirubin 0.6 mg/dL (0.2-1.0) 02/05/18 03:35 AST 16 U/L (15-37) 02/05/18 03:35 ALT 7 U/L (12-78) L 02/05/18 03:35 Alkaline Phosphatase 73 U/L (45-117) 02/05/18 03:35 Triglycerides 93 mg/dL (<150) 02/05/18 03:35 Cholesterol 232 mg/dL (<200) H 02/05/18 03:35 HDL Cholesterol 58 mg/dL (40-60) 02/05/18 03:35 Cholesterol/HDL Ratio 4.00 02/05/18 03:35 Lipase 167 U/L (73-393) 02/04/18 13:50 Home Medications: Carbidopa/Levodopa [Carbidopa-Levo ER 50-200 Tab] 1 tab PO TID 02/04/18 Aspirin 81 mg PO DAILY #30 tab.chew 02/06/18 Atorvastatin Calcium [Lipitor] 40 mg PO BEDTIME #30 tab 02/06/18 Lisinopril [Prinivil*] 10 mg PO DAILY #30 tab 02/06/18 New Medications: Aspirin 81 mg PO DAILY #30 tab.chew Atorvastatin Calcium [Lipitor] 40 mg PO BEDTIME #30 tab Lisinopril [Prinivil*] 10 mg PO DAILY #30 tab Patient Discharge Instructions: Please f.u with Dr grimes and PCP in 1 to 2 days post discharge. No new medication Diet: Regular Activity: Ad eleazar Followup: Tan Grimes MD [ACTIVE - CAN ADMIT] - (call to schedule appointment)
--- NOTE | 2018-02-06 20:59 | P.PN ---
Date of Service: 02/06/18 Vital Signs Temp Pulse Resp BP Pulse Ox 98.1 F 71 16 168/84 H 98 02/06/18 20:00 02/06/18 20:00 02/06/18 20:00 02/06/18 20:00 02/06/18 20:00 Medications Acetaminophen (Tylenol -Extra Strength) 500 mg PO Q4HP PRN PRN Reason: [id number] Stop: 03/06/18 16:27 Last Admin: 02/06/18 15:09 Dose: 500 mg Aspirin (Aspirin Ec) 162 mg PO DAILY [facility] Stop: 03/07/18 09:01 Last Admin: 02/06/18 08:41 Dose: 162 mg Atorvastatin Calcium (Lipitor) 40 mg PO BEDTIME [facility] Stop: 03/06/18 21:01 Last Admin: 02/05/18 20:08 Dose: 40 mg Enoxaparin Sodium (Lovenox 40 Mg Inj) 40 mg SQ DAILY [facility] Stop: 03/06/18 17:01 Last Admin: 02/06/18 08:41 Dose: 40 mg Folic Acid (Folic Acid) 1 mg PO DAILY [facility] Stop: 03/08/18 09:01 Last Admin: 02/06/18 08:42 Dose: 1 mg Home Med (Carbidopa/Levodopa [Carbidopa-Levo Er 50-200 Tab]) 0 tab PO TID [facility] Stop: 03/07/18 09:01 Last Admin: 02/06/18 13:17 Dose: 1 tab Lisinopril (Prinivil) 10 mg PO DAILY [facility] Stop: 03/08/18 09:01 Last Admin: 02/06/18 08:41 Dose: 10 mg Morphine Sulfate (Morphine Sulfate) 2 mg IV Q4H PRN PRN Reason: PAIN MODERATE TO SEVERE Stop: 03/07/18 13:52 Ondansetron HCl (Zofran) 4 mg IV Q6HP PRN PRN Reason: NAUSEA / VOMITING Stop: 03/06/18 16:27 Sodium Chloride (Normal Saline Flush) 10 ml IV BID [facility] Stop: 03/06/18 21:01 Last Admin: 02/06/18 08:42 Dose: 10 ml Microbiology Results 02/04/18 16:55 Clean Catch Urine [place] Count - Final BETWEEN 10,000 & 100,000 CFU/ML 10/09/18 16:55 Clean Catch Urine - Final Assessment/ Plan: Nephrology. Feeling better today. CPS improved without CP or SOB. No acute events overnight. Doing well with PT. Vitals, medications, blood work and imaging reviewed in the chart. NAD. NCAT. MMM. Neck supple. CTA. RRR. Soft Abd. No C/C/E. No rash. AAO. Abnormal speech. Abnormal gait. A/ TREVOR improved with IVF. Hyponatremia, improved. Hypocalcemia. Diastolic CHF, chronic. Anemia in chronic illness. HTN, variable. Parkinsons progressive. P/ Continue current POC and Medications. Agree with restarting lisinopril. Start Vitamin D. Encourage nutrition. No NSAIDs. AM labs. Daily weight. Son at the bedside is concerned about the patient's living situation. Reports that the brother, living with his mother and father, is not taking good care of his parents. Patient care approximately 30min.
[2018-02-06] MEDS: ATORVASTATIN 40 MG TAB PO SCH (21:46)
[2018-02-07] MEDS: LISINOPRIL 10 MG TAB PO SCH (08:28)
[2018-02-07] MEDS: ASPIRIN EC 81 MG TAB PO SCH (08:28)
[2018-02-07] MEDS: ENOXAPARIN 40 MG/0.4 ML SQ SCH (08:28)
[2018-02-07] MEDS: CARBIDOPA LEVO PO SCH ×4 (08:29→19:59)
[2018-02-07] MEDS: FOLIC ACID 1 MG TABLET PO SCH (08:29)
[2018-02-07] MEDS: ACETAMINOPHEN 500 MG TAB PO PRN (11:14)
--- NOTE | 2018-02-07 11:54 | P.PN ---
Subjective Date of Service: 02/07/18 Primary Care Provider: Neurology-Dr. Grimes Chief Complaint: Patient w/ ataxia and dizziness Patient seen and examined at bedside with RN. Chart reviewed. Case discussed with neurology. Currently patient is pending placement. [facility] Review of Systems 10-point ROS is otherwise unremarkable Physical Examination - Vital Signs Temperature: 98.3 F Blood Pressure: 164/70 Pulse: 61 Respirations: 12 Pulse Ox (%): 100 - Physical Exam General: Alert, In no apparent distress HEENT: Atraumatic, PERRLA, EOMI Neck: Supple, JVD not distended Respiratory: Clear to auscultation bilaterally, Normal air movement Cardiovascular: Regular rate/rhythm, Normal S1 S2 Gastrointestinal: Normal bowel sounds, No tenderness Musculoskeletal: No tenderness Integumentary: No rashes Neurological: Other (Patient willing tremors noted), Abnormal affect, Dementia Lymphatics: No axilla or inguinal lymphadenopathy - Studies Microbiology Data (last 24 hrs): 02/04/18 16:55 Clean Catch Urine [place] Count - Final BETWEEN 10,000 & 100,000 CFU/ML 02/04/18 16:55 Clean Catch Urine - Final Medications List Reviewed: Yes Assessment And Plan - Current Problems (Diagnosis) (1) Ataxia Onset Date: 02/05/18 Current Visit: Yes Status: Chronic (2) Dysarthria Onset Date: 02/05/18 Current Visit: Yes Status: Chronic (3) Parkinsons disease Onset Date: 02/05/18 Current Visit: Yes Status: Chronic (4) Vertigo Onset Date: 02/05/18 Current Visit: Yes Status: Chronic - Plan Plan: Dizziness, ataxia with headaches likely from dehydration with noted acute renal insufficiency with underlying Parkinson's disease: Resolved during and patient at baseline at this time A K. I. resolved as well Hypertension: Blood pressure elevated. Patient not on any medication at home. Will start lisinopril 10 mg daily. Will monitor and adjust appropriately. Hyperlipidemia: LDL elevated at 155. Will start Lipitor. Anemia, mild likely of chronic disease: Mild anemia noted. Will check iron and B12 studies. Carotid arterial disease: Patient now on aspirin, statin medication and blood pressure medication. This can be followed up as an outpatient. Disposition Pending placement at this time Discharge Plan: Other Plan to discharge in: 48 Hours - Code Status/Comfort Care Code Status Assessed: Yes Critical Care: No
--- NOTE | 2018-02-07 19:51 | P.PN ---
Date of Service: 02/07/18 Vital Signs Temp Pulse Resp BP Pulse Ox 97.4 F 66 18 189/80 H 100 02/07/18 16:00 02/07/18 16:00 02/07/18 16:00 02/07/18 16:00 02/07/18 16:00 Medications Acetaminophen (Tylenol -Extra Strength) 500 mg PO Q4HP PRN PRN Reason: [id number] Stop: 03/06/18 16:27 Last Admin: 02/07/18 11:14 Dose: 500 mg Aspirin (Aspirin Ec) 162 mg PO DAILY DAVID Stop: 03/07/18 09:01 Last Admin: 02/07/18 08:28 Dose: 162 mg Atorvastatin Calcium (Lipitor) 40 mg PO BEDTIME [facility] Stop: 03/06/18 21:01 Last Admin: 02/06/18 21:46 Dose: 40 mg Enoxaparin Sodium (Lovenox 40 Mg Inj) 40 mg SQ DAILY DAVID Stop: 03/06/18 17:01 Last Admin: 02/07/18 08:28 Dose: 40 mg Folic Acid (Folic Acid) 1 mg PO DAILY [facility] Stop: 03/08/18 09:01 Last Admin: 02/07/18 08:29 Dose: 1 mg Lisinopril (Prinivil) 10 mg PO DAILY [facility] Stop: 03/08/18 09:01 Last Admin: 02/07/18 08:28 Dose: 10 mg Morphine Sulfate (Morphine Sulfate) 2 mg IV Q4H PRN PRN Reason: PAIN MODERATE TO SEVERE Stop: 03/07/18 13:52 Carbidopa-Levo Er 50 (-200 Mg Tablet) 0 ea PO TID [facility] Stop: 03/09/18 21:01 Ondansetron HCl (Zofran) 4 mg IV Q6HP PRN PRN Reason: NAUSEA / VOMITING Stop: 03/06/18 16:27 Sodium Chloride (Normal Saline Flush) 10 ml IV BID [facility] Stop: 03/06/18 21:01 Last Admin: 02/07/18 08:30 Dose: 10 ml Microbiology Results 02/04/18 16:55 Clean Catch Urine [place] Count - Final BETWEEN 10,000 & 100,000 CFU/ML 02/04/18 16:55 Clean Catch Urine - Final Assessment/ Plan: Nephrology. Doing well.. CPS improved without CP or SOB. No acute events overnight. Doing well with PT. Vitals, medications, blood work and imaging reviewed in the chart. NAD. NCAT. MMM. Neck supple. CTA. RRR. Soft Abd. No C/C/E. No rash. AAO. Abnormal speech. Abnormal gait. A/ TREVOR improved with IVF. Hyponatremia. Hypocalcemia. Diastolic CHF, chronic. Anemia in chronic illness. HTN, variable. Parkinsons progressive. P/ Continue current POC and Medications. Encourage nutrition. No NSAIDs. AM labs. Daily weight. Awaiting placement.
[2018-02-07] MEDS: ATORVASTATIN 40 MG TAB PO SCH (19:59)
[2018-02-08] MEDS: LISINOPRIL 10 MG TAB PO SCH (08:43)
[2018-02-08] MEDS: FOLIC ACID 1 MG TABLET PO SCH (08:44)
[2018-02-08] MEDS: ASPIRIN EC 81 MG TAB PO SCH (08:44)
[2018-02-08] MEDS: ENOXAPARIN 40 MG/0.4 ML SQ SCH (08:45)
[2018-02-08] MEDS: CARBIDOPA LEVO PO SCH ×3 (08:45→19:59)
[2018-02-08 09:47] VITALS: O2SAT 100
--- NOTE | 2018-02-08 15:17 | P.PN ---
Subjective Date of Service: 02/08/18 Primary Care Provider: Neurology-Dr. Grimes Chief Complaint: Patient w/ ataxia and dizziness Patient seen and examined at bedside with RN. Chart reviewed. Case discussed with neurology. Currently patient is pending placement. Family wants to discharge patient to the assisted. Review of Systems 10-point ROS is otherwise unremarkable Physical Examination - Vital Signs Temperature: 98.5 F Blood Pressure: 144/65 Pulse: 73 Respirations: 18 Pulse Ox (%): 100 - Physical Exam General: Alert, In no apparent distress HEENT: Atraumatic, PERRLA, EOMI Neck: Supple, JVD not distended Respiratory: Clear to auscultation bilaterally, Normal air movement Cardiovascular: Regular rate/rhythm, Normal S1 S2 Gastrointestinal: Normal bowel sounds, No tenderness Musculoskeletal: No tenderness Integumentary: No rashes Neurological: Normal speech, Normal tone, Normal affect Lymphatics: No axilla or inguinal lymphadenopathy - Studies Medications List Reviewed: Yes Assessment And Plan - Current Problems (Diagnosis) (1) Ataxia Onset Date: 02/05/18 Current Visit: Yes Status: Chronic (2) Dysarthria Onset Date: 02/05/18 Current Visit: Yes Status: Chronic (3) Parkinsons disease Onset Date: 02/05/18 Current Visit: Yes Status: Chronic (4) Vertigo Onset Date: 02/05/18 Current Visit: Yes Status: Chronic - Plan Plan: Dizziness, ataxia with headaches likely from dehydration with noted acute renal insufficiency with underlying Parkinson's disease: Resolved during and patient at baseline at this time Acute kidney injury Resolved at this time status post IV hydration Hypertension: Blood pressure elevated. Patient not on any medication at home. Will start lisinopril 10 mg daily. Will monitor and adjust appropriately. Hyperlipidemia: LDL elevated at 155. Will start Lipitor. Anemia, mild likely of chronic disease: Mild anemia noted. Will check iron and B12 studies. Carotid arterial disease: Patient now on aspirin, statin medication and blood pressure medication. This can be followed up as an outpatient. Disposition Pending placement at this time Discharge Plan: Detention Plan to discharge in: 48 Hours - Code Status/Comfort Care Code Status Assessed: Yes Critical Care: No
[2018-02-08] MEDS: ACETAMINOPHEN 500 MG TAB PO PRN (16:26)
[2018-02-08] MEDS: ATORVASTATIN 40 MG TAB PO SCH (19:58)
[2018-02-09 06:59] LABS: Potassium 3.7 mmol/L (3.5-5.1)
[2018-02-09] MEDS: ASPIRIN EC 81 MG TAB PO SCH (08:24)
[2018-02-09] MEDS: LISINOPRIL 10 MG TAB PO SCH (08:24)
[2018-02-09] MEDS: ENOXAPARIN 40 MG/0.4 ML SQ SCH (08:25)
[2018-02-09] MEDS: FOLIC ACID 1 MG TABLET PO SCH (08:25)
[2018-02-09] MEDS: CARBIDOPA LEVO PO SCH ×3 (08:26→20:17)
[2018-02-09] MEDS ORDERED: POTASSIUM 25 MEQ EFFERV TAB PO ONE (09:00)
--- NOTE | 2018-02-09 09:31 | P.PN ---
Subjective Date of Service: 02/09/18 Primary Care Provider: Neurology-Dr. Grimes Chief Complaint: Patient w/ ataxia and dizziness Patient seen and examined at bedside with RN. Chart reviewed. Case discussed with neurology. Currently patient is pending placement. Family wants to discharge patient to the [facility]. Review of Systems 10-point ROS is otherwise unremarkable Physical Examination - Vital Signs Temperature: 98.3 F Blood Pressure: 155/69 Pulse: 62 Respirations: 18 Pulse Ox (%): 100 - Physical Exam General: Alert, In no apparent distress HEENT: Atraumatic, PERRLA, EOMI Neck: Supple, JVD not distended Respiratory: Clear to auscultation bilaterally, Normal air movement Cardiovascular: Regular rate/rhythm, Normal S1 S2 Gastrointestinal: Normal bowel sounds, No tenderness Musculoskeletal: No tenderness Integumentary: No rashes Neurological: Normal speech, Normal tone, Normal affect Lymphatics: No axilla or inguinal lymphadenopathy - Studies Medications List Reviewed: Yes Assessment And Plan - Current Problems (Diagnosis) (1) Ataxia Onset Date: 02/05/18 Current Visit: Yes Status: Chronic (2) Dysarthria Onset Date: 02/05/18 Current Visit: Yes Status: Chronic (3) Parkinsons disease Onset Date: 02/05/18 Current Visit: Yes Status: Chronic (4) Vertigo Onset Date: 02/05/18 Current Visit: Yes Status: Chronic - Plan Plan: Dizziness, ataxia with headaches likely from dehydration with noted acute renal insufficiency with underlying Parkinson's disease: Resolved during and patient at baseline at this time Acute kidney injury Resolved at this time status post IV hydration Hypertension: Blood pressure elevated. Patient not on any medication at home. Will start lisinopril 10 mg daily. Will monitor and adjust appropriately. Hyperlipidemia: LDL elevated at 155. Will start Lipitor. Anemia, mild likely of chronic disease: Mild anemia noted. Will check iron and B12 studies. Carotid arterial disease: Patient now on aspirin, statin medication and blood pressure medication. This can be followed up as an outpatient. Disposition Pending placement at this time Discharge Plan: [facility] Plan to discharge in: 48 Hours - Code Status/Comfort Care Code Status Assessed: Yes Critical Care: No
[2018-02-09] MEDS: ATORVASTATIN 40 MG TAB PO SCH (20:16)
[2018-02-10] MEDS ORDERED: POTASSIUM CL SA 10 MEQ TAB PO ONE (05:10)
[2018-02-10] MEDS: ASPIRIN EC 81 MG TAB PO SCH (08:25)
[2018-02-10] MEDS: LISINOPRIL 10 MG TAB PO SCH (08:26)
[2018-02-10] MEDS: ENOXAPARIN 40 MG/0.4 ML SQ SCH (08:26)
[2018-02-10] MEDS: FOLIC ACID 1 MG TABLET PO SCH (08:26)
[2018-02-10] MEDS: CARBIDOPA LEVO PO SCH ×2 (08:28→13:01)
[2018-02-10] MEDS ORDERED: HYDRALAZINE HCL 10 MG TABLET PO ONE (11:14)
--- NOTE | 2018-02-10 14:36 | P.PN ---
Subjective Date of Service: 02/10/18 Primary Care Provider: Neurology-Dr. Grimes Chief Complaint: Patient w/ ataxia and dizziness Patient seen and examined at bedside with RN. Chart reviewed. Case discussed with neurology. Patient accepted to the long-term at this time Review of Systems 10-point ROS is otherwise unremarkable Physical Examination - Vital Signs Temperature: 97.0 F Blood Pressure: 168/74 Pulse: 69 Respirations: 17 Pulse Ox (%): 100 - Physical Exam General: Alert, In no apparent distress HEENT: Atraumatic, PERRLA, EOMI Neck: Supple, JVD not distended Respiratory: Clear to auscultation bilaterally, Normal air movement Cardiovascular: Regular rate/rhythm, Normal S1 S2 Gastrointestinal: Normal bowel sounds, No tenderness Musculoskeletal: No tenderness Integumentary: No rashes Neurological: Normal speech, Normal tone, Normal affect Lymphatics: No axilla or inguinal lymphadenopathy - Studies Medications List Reviewed: Yes Assessment And Plan - Current Problems (Diagnosis) (1) Ataxia Onset Date: 02/05/18 Current Visit: Yes Status: Chronic (2) Dysarthria Onset Date: 02/05/18 Current Visit: Yes Status: Chronic (3) Parkinsons disease Onset Date: 02/05/18 Current Visit: Yes Status: Chronic (4) Vertigo Onset Date: 02/05/18 Current Visit: Yes Status: Chronic - Plan Plan: Dizziness, ataxia with headaches likely from dehydration with noted acute renal insufficiency with underlying Parkinson's disease: Resolved during and patient at baseline at this time Acute kidney injury Resolved at this time status post IV hydration Hypertension: Blood pressure elevated. Patient not on any medication at home. Will start lisinopril 10 mg daily. Will monitor and adjust appropriately. Hyperlipidemia: LDL elevated at 155. Will start Lipitor. Anemia, mild likely of chronic disease: Mild anemia noted. Will check iron and B12 studies. Carotid arterial disease: Patient now on aspirin, statin medication and blood pressure medication. This can be followed up as an outpatient. Disposition Accepted to the long-term
[2018-02-10] MEDS: ACETAMINOPHEN 500 MG TAB PO PRN (14:40)
[2018-02-11 14:06] VITALS: BP 168/74; TEMP 97
== END 2018-02-10 14:59 ==
LOC: ER 13:18 → ERHOLD 15:51 → UNDOADMOB 15:51 → ERHOLD 16:56 → 4TH 16:56
PROVIDERS: ADMIT Hospitalist; ATTEND Hospitalist
DX: R27.0 Ataxia, unspecified (principal); R47.1 Dysarthria and anarthria; G20 Parkinson's disease; R42 Dizziness and giddiness; N28.9 Disorder of kidney and ureter, unspecified; N17.0 Acute kidney failure with tubular necrosis; E86.9 Volume depletion, unspecified; E87.1 Hypo-osmolality and hyponatremia; E83.51 Hypocalcemia; I77.89 Other specified disorders of arteries and arterioles; D64.9 Anemia, unspecified; E78.5 Hyperlipidemia, unspecified; Z23 Encounter for immunization
CPT/HCPCS: 36415 ×4; 70450; 70544; 70551; 71045; 80048 ×4; 80053; 80061; 80076; 81001; 82607; 82728; 83540; 83690; 83735 ×4; 83880; 84100 ×3; 84439; 84443; 84466; 84484; 85025 ×2; 85610; 87086; 87088; 90670; 93005; 93306; 93880; 96361; 96374; 97110; 97116 ×4; 97163; 97530 ×3; 99285; G0008; G0009; G0378 ×2; J1650 ×7; J2270; J7030 ×3; Q2035

== ENCOUNTER 2018-06-24 08:50 | Observation (INO) | payer MEDICARE ==
[2018-06-24 09:31] LABS: Absolute Monocytes 0.4 K/uL (0.1-1.3); Absolute Neutrophil 2.9 K/uL (1.8-8.0); Basophils % 0.6 % (0-1.3); Eosinophils % 1.9 % (0-4.4); Hematocrit 38.3 % (39.6-49.0); Lymphocytes % 23.4 % (15.3-44.8); MPV 7.9 fL (7.6-11.3); Monocytes % 8.4 % (3.3-12.3); RBC Red Blood Cell Count 4.01 M/uL (4.33-5.43)
[2018-06-24] MEDS ORDERED: NA CHLORIDE 0.9% 250 ML ONE (09:40)
[2018-06-24] MEDS ORDERED: ONDANSETRON 4 MG/2 ML VIAL ONE (09:54)
[2018-06-24 10:01] LABS: ALT/SGPT 7 U/L (12-78); AST/SGOT 29 U/L (15-37); Alkaline Phosphatase 104 U/L (45-117); BUN Blood Urea Nitrogen 21 mg/dL (7-18); Bicarbonate 30 mmol/L (21-32); Bilirubin Direct 0.2 mg/dL (0-0.2); Bilirubin Total 0.5 mg/dL (0.2-1.0); Glucose Level 116 mg/dL (74-106); Lipase 2114 U/L (73-393); Potassium 3.9 mmol/L (3.5-5.1); Protein, Total 7.7 g/dL (6.4-8.2); Sodium Level 137 mmol/L (136-145); Troponin (Emerg Dept Use Only) < 0.02 ng/mL (0.0-0.045)
[2018-06-24 10:28] LABS: Urine Bacteria NONE SEEN /HPF (NONE SEEN); Urine Culture Reflex Order NOT NEEDED; Urine RBC <5 /HPF (NONE SEEN)
--- NOTE | 2018-06-24 11:20 | RAD REPORT ---
EXAM DESCRIPTION: US - Abdomen Exam Limited - 06/24/2018 11:08 am CLINICAL HISTORY: Abdominal pain COMPARISON: None. FINDINGS: No gallstones confirmed. A small amount of sludge is seen layering along the dependent por tion the gallbladder wall. There is no wall thickening or pericholecystic fluid. No common duct stone or biliary tree dilatation identified. IMPRESSION: No gallstones seen. Small quantity of gallbladder sludge. No biliary tree abnormality.
--- NOTE | 2018-06-24 11:47 | RAD REPORT ---
EXAM DESCRIPTION: CT - Abdomen Pelvis W Contrast - 06/24/2018 11:21 am CLINICAL HISTORY: Abdominal pain. COMPARISON: None. TECHNIQUE: Computed axial tomography of the abdomen and pelvis was obtained. 100 cc Isovue-300 is ad ministered intravenously. Oral contrast was given. All CT scans are performed using dose optimization technique as appropriate and may include automated exposure control or mA/KV adjustment according to patient size. FINDINGS: The liver, spleen, pancreas, and adrenals appear unremarkable. 2 millimeter nonobstructing right sher l calculus. Small left renal cyst There is no evidence of diverticulitis A right inguinal hernia contains several loops of nondilated small bowel. IMPRESSION: A right inguinal hernia containing small bowel Nonobstructing right renal calculus
--- NOTE | 2018-06-24 12:02 | ER ---
Nurse's Notes [facility] Name: Sumanth Louis Age: 78 yrs Sex: Male : 1940 Arrival Date: 06/24/2018 Time: 08:52 Bed 4 Private MD: Diagnosis: Acute pancreatitis;Dehydration Presentation: 06/24 08:48 Presenting complaint: EMS states: generalized weakness and nausea x 1 day. Pt lives at home and they have a nurse to come see him and stated that his SBP was in the 50s, on EMS arrival SBP went up to 110, NS bolus started 20G L AC. A\T\O x 4. BS-156. Transition of care: patient was not received from another setting of care. Onset of symptoms was June 23, 2018. Risk Assessment: Do you want to hurt yourself or someone else? Patient reports no desire to harm self or others. Initial Sepsis Screen: Does the patient meet any 2 criteria? No. Patient's initial sepsis screen is negative. Does the patient have a suspected source of infection? No. Patient's initial sepsis screen is negative. Care prior to arrival: Medication(s) given: Normal saline infusion, 1000 mL, IV initiated. 20 GA, in the right antecubital area, Glucose check: 156. 08:48 Method Of Arrival: EMS: [facility] sv 08:48 Acuity: IRINA 2 sv Triage Assessment: 08:50 General: Appears in no apparent distress. uncomfortable, Behavior is calm, cooperative, sv appropriate for age. Pain: Denies pain. Neuro: Level of Consciousness is awake, alert, obeys commands, Oriented to person, place, time, situation, Moves all extremities. Neuro: Reports weakness. Respiratory: Airway is patent Respiratory effort is even, unlabored, Respiratory pattern is regular, symmetrical. GI: Reports nausea. Derm: Skin is fragile, with poor turgor Skin is normal. Historical: - Allergies: 09:03 No Known Allergies; sv - Home Meds: 09:16 carbidopa-levodopa 25-100 mg oral tab 1 tab 4 times per day [Active]; Franny-D 180-240 sv mg daily Oral [Active]; amlodipine 5 mg tab 1 tab once daily [Active]; aspirin 81 mg Oral TbEC 1 tab once daily [Active]; atorvastatin 20 mg oral tab 1 tab once daily [Active]; donepezil 5 mg oral tab 1 tab once daily [Active]; Flonase 50 mcg/actuation Nasal spsn 2 sprays once daily [Active]; Lasix 40 mg Oral tab 1 tab 2 times per day [Active]; One-A-Day Men's Multivitamin 400-300 mcg oral tab daily [Active]; - PMHx: 09:03 Hernia; Parkinsons; CHF; Hypertension; Anemia; sv 09:16 localized edema; PAD; Dementia; rhinitis; Chronic pain syndrome; osteoarthritis; sv Vitamin D3 deficiency; Right inguinal hernia; Bilateral deafness; Bilateral degeneration of macula; Anxiety; - Immunization history:: Adult Immunizations up to date. - Social history:: Smoking status: Patient/guardian denies using tobacco. - Family history:: not pertinent. - Ebola Screening: : No symptoms or risks identified at this time. - Hospitalizations: : No recent hospitalization is reported. Screenin:04 Abuse screen: Denies threats or abuse. Denies injuries from another. Nutritional sv screening: No deficits noted. Tuberculosis screening: No symptoms or risk factors identified. Fall Risk No fall in past 12 months (0 pts). Secondary diagnosis (15 points) Parkinson's disease. IV access (20 points). Ambulatory Aid- None/Bed Rest/Nurse Assist (0 pts). Gait- Normal/Bed Rest/Wheelchair (0 pts) Mental Status- Oriented to own ability (0 pts). Total Han Fall Scale indicates Low Risk Score (25-44 pts). Fall prevention measures have been instituted. Side Rails Up X 2 Placed close to Nursing Station Frequent Obs/Assesments occuring Family Present and informed to notify staff if they need to leave bedside As available Patient and Family Educated on Fall Prevention Program and strategies. Assessment: 09:32 Reassessment: Patient appears in no apparent distress at this time. No changes from sv previously documented assessment. Patient and/or family updated on plan of care and expected duration. Pain level reassessed. Patient is alert, oriented x 3, equal unlabored respirations, skin warm/dry/pink. Pt drinking his oral contrast at this time. Family remains at the bedside. 09:42 Reassessment: Patient appears in no apparent distress at this time. Patient and/or sv family updated on plan of care and expected duration. Pain level reassessed. Patient is alert, oriented x 3, equal unlabored respirations, skin warm/dry/pink. GI: Reports nausea, Informed Dr Armendariz, medication ordered. 09:50 Reassessment: Pt stated that he was having a hard time swallowing. Pt able to swallow sv his spit but stated not like normal. Informed Dr Armendariz. No further orders at this time. 10:13 Reassessment: Patient appears in no apparent distress at this time. Patient and/or sv family updated on plan of care and expected duration. Pain level reassessed. Patient is alert, oriented x 3, equal unlabored respirations, skin warm/dry/pink. 11:39 Reassessment: Patient appears in no apparent distress at this time. No changes from sv previously documented assessment. Daughter in law asking if pt is able to take his Parkinson's medication. Ok by Dr Armendariz for him to take that and his Vitamin C. Water provided to daughter in law. 13:00 Reassessment: Patient appears in no apparent distress at this time. Patient and/or sv family updated on plan of care and expected duration. Pain level reassessed. Patient is alert, oriented x 3, equal unlabored respirations, skin warm/dry/pink. 13:45 Reassessment: Nurse to call back for report. sv Vital Signs: 09:03 BP 161 / 63; Pulse 52; Resp 18; Temp 97.5; Pulse Ox 99% ; Pain 0/10; sv 09:15 BP 88 / 69; Pulse 60; Resp 24; Pulse Ox 100% ; sv 09:30 BP 131 / 75; Pulse 58; Resp 23; Pulse Ox 99% ; sv 11:41 BP 162 / 62; Pulse 66; Resp 17; Pulse Ox 99% ; sv 12:24 BP 153 / 79; Pulse 72; Resp 16; Pulse Ox 100% ; sv 13:00 BP 120 / 93; Pulse 68; Resp 18; Pulse Ox 98% ; sv 13:53 BP 111 / 66; Pulse 73; Resp 18; Pulse Ox 99% on R/A; sv ED Course: 08:48 Maintain EMS IV. Dressing intact. Site clean \T\ dry. Gauge \T\ site: 20G L AC. Flushed sv left antecubital with 5 ml normal saline. 08:52 Patient arrived in ED. sv 08:54 Arvin Armendariz MD is Attending Physician. rn 09:00 Chris, Sherrie, RN is Primary Nurse. sv 09:02 Triage completed. sv 09:04 Arm band placed on. sv 09:04 Patient has correct armband on for positive identification. Placed in gown. Bed in low sv position. Side rails up X2. marble mason on. Pulse ox on. NIBP on. Door closed. Head of bed elevated. 09:10 Initial lab(s) drawn, by me, sent to lab. First set of blood cultures drawn by me. em1 Inserted saline lock: 20 gauge in left forearm, using aseptic technique. Blood collected. 09:30 EKG done, by social service technician. reviewed by Arvin Armendariz MD. at1 09:30 Second set of blood cultures drawn by me, Urine collected: clean catch specimen, clear, em1 Urine Micro and Urine culture sent to lab. 09:48 XRAY Chest (1 view) In Process Unspecified. EDMS 09:[address] Scan. sv 10:56 Patient taken to ultrasound. via stretcher. sv 11:09 US Abdomen Limited In Process Unspecified. EDMS 11:22 CT Abd/Pelvis - W/Contrast In Process Unspecified. EDMS 11:23 Patient moved back from ultrasound. sv 11:44 Awaiting radiology results. Awaiting re-evaluation by ER provider. sv 12:01 Ankush Reyes MD is Hospitalizing Provider. rn 13:54 No provider procedures requiring assistance completed. Patient admitted, IV remains in sv place. intact. Administered Medications: 09:31 Drug: NS 0.9% 250 ml Route: IV; Rate: 1 bolus; Site: left forearm; sv 09:49 Follow up: Response: No adverse reaction; IV Status: Completed infusion; IV Intake: sv 250ml 09:49 Drug: Zofran 4 mg Route: IVP; Site: left forearm; sv 10:00 Follow up: Response: No adverse reaction sv Point of Care Testing: Blood Glucose: 09:11 Blood Glucose: 131 mg/dL; sv Ranges: Intake: 09:49 IV: 250ml; Total: 250ml. sv 09:51 PO: 500ml (Contrast); Total: 750ml. sv 09:[address] sv 11:39 Pt assisted up to the BSC. sv Output: 10:13 Urine: 150ml (Voided); Total: 150ml. sv 11:39 Urine: 300ml (Voided); Total: 450ml. sv 09:[address] sv 11:39 Pt assisted up to the BSC. sv Outcome: 12:01 Decision to Hospitalize by Provider. rn 14:25 Patient left the ED. aa5 Signatures: Dispatcher [employer] Sherrie Glass, RN RN Arvin Garcia MD MD rn Martinez, Michael em1 Shima Whitney RN RN aa5 Steph Reyes, injection press operator EKG Tat1 Corrections: (The following items were deleted from the chart) 09:34 09:31 BP 88 / 69; Pulse 60bpm; Resp 24bpm; Pulse Ox 100%; sv sv 09:52 09:50 Reassessment: Pt stated that he was having a hard time swallowing. Pt able to sv swallow his spit but stated not like normal. Informed Dr Armendariz. sv
--- NOTE | 2018-06-24 12:03 | EDPHYS ---
Physician Documentation [facility] Name: Sumanth Louis Age: 78 yrs Sex: Male : 1940 Arrival Date: 06/24/2018 Time: 08:52 Bed 4 Private MD: ED Physician Arvin Armendariz HPI: 06/24 09:19 This 78 yrs old Male presents to ER via EMS with complaints of General rn Weakness, Nausea. 09:19 The patient presents to the emergency department with nausea, abdominal pain. Onset: rn The symptoms/episode began/occurred last night. Possible causes: unknown. The symptoms are aggravated by nothing. The symptoms are alleviated by nothing. Severity of symptoms: At their worst the symptoms were mild in the emergency department the symptoms have improved. It is unknown whether or not the patient has had similar symptoms in the past. Home health nurse reported generalized weakness and low blood pressure, when EMS arrived, BP was 100 systolic, patient reported to EMS felt weak and abd pain, thought ate something wrong last night, feels better now and denies symptoms. Denies fever/chest pain/sob/cough/abd pain/vomiting/diarrhea.. Historical: - Allergies: 09:03 No Known Allergies; sv - Home Meds: 09:16 carbidopa-levodopa 25-100 mg oral tab 1 tab 4 times per day [Active]; Franny-D 180-240 sv mg daily Oral [Active]; amlodipine 5 mg tab 1 tab once daily [Active]; aspirin 81 mg Oral TbEC 1 tab once daily [Active]; atorvastatin 20 mg oral tab 1 tab once daily [Active]; donepezil 5 mg oral tab 1 tab once daily [Active]; Flonase 50 mcg/actuation Nasal spsn 2 sprays once daily [Active]; Lasix 40 mg Oral tab 1 tab 2 times per day [Active]; One-A-Day Men's Multivitamin 400-300 mcg oral tab daily [Active]; - PMHx: 09:03 Hernia; Parkinsons; CHF; Hypertension; Anemia; sv 09:16 localized edema; PAD; Dementia; rhinitis; Chronic pain syndrome; osteoarthritis; sv Vitamin D3 deficiency; Right inguinal hernia; Bilateral deafness; Bilateral degeneration of macula; Anxiety; - Immunization history:: Adult Immunizations up to date. - Social history:: Smoking status: Patient/guardian denies using tobacco. - Family history:: not pertinent. - Ebola Screening: : No symptoms or risks identified at this time. - Hospitalizations: : No recent hospitalization is reported. ROS: 09:19 Constitutional: Negative for fever, chills, and weight loss, Eyes: Negative for injury, rn pain, redness, and discharge, Neck: Negative for injury, pain, and swelling, Cardiovascular: Negative for chest pain, palpitations, and edema, Respiratory: Negative for shortness of breath, cough, wheezing, and pleuritic chest pain, Abdomen/GI: Negative for nausea, vomiting, diarrhea, and constipation, MS/Extremity: Negative for injury and deformity, Skin: Negative for injury, rash, and discoloration, Neuro: Negative for headache, numbness, tingling, and seizure. Exam: 09:19 Constitutional: This is a well developed, well nourished patient who is awake, alert, rn and in no acute distress. Head/Face: Normocephalic, atraumatic. Eyes: Pupils equal round and reactive to light, extra-ocular motions intact. Lids and lashes normal. Conjunctiva and sclera are non-icteric and not injected. Cornea within normal limits. Periorbital areas with no swelling, redness, or edema. ENT: MMM Cardiovascular: Bradycardic, regular, no murmur Respiratory: Lungs have equal breath sounds bilaterally, clear to auscultation. No increased work of breathing, no retractions or nasal flaring. Vital Signs: 09:03 BP 161 / 63; Pulse 52; Resp 18; Temp 97.5; Pulse Ox 99% ; Pain 0/10; sv 09:15 BP 88 / 69; Pulse 60; Resp 24; Pulse Ox 100% ; sv 09:30 BP 131 / 75; Pulse 58; Resp 23; Pulse Ox 99% ; sv 11:41 BP 162 / 62; Pulse 66; Resp 17; Pulse Ox 99% ; sv 12:24 BP 153 / 79; Pulse 72; Resp 16; Pulse Ox 100% ; sv 13:00 BP 120 / 93; Pulse 68; Resp 18; Pulse Ox 98% ; sv 13:53 BP 111 / 66; Pulse 73; Resp 18; Pulse Ox 99% on R/A; sv MDM: 08:54 Patient medically screened. rn 12:00 Differential diagnosis: Nonspecific abd pain, gastritis, cholecystitis, pancreatitis, rn viral gastroenteritis, gastroenteritis. Data reviewed: vital signs, nurses notes, lab test result(s), radiologic studies, CT scan, ultrasound, and as a result, I will admit patient. Counseling: I had a detailed discussion with the patient and/or guardian regarding: the historical points, exam findings, and any diagnostic results supporting the discharge/admit diagnosis, lab results, radiology results, the need for further work-up and treatment in the hospital. Response to treatment: the patient's symptoms have mildly improved after treatment, and as a result, I will admit patient. Admission orders: after a detailed discussion of the patient's condition and case, the admit orders are written by me. ED course: Admitted to Dr. Reyes for further care and w/u, possible pancreatitis and dehdyration, U/S with normal CBD and CT no acute findings. NO indication for emergent GI procedure or surgical procedure and this point.. 06/24 08:56 Order name: Basic Metabolic Panel; Complete Time: 10:12 rn 06/24 08:56 Order name: CBC with Diff; Complete Time: 09:37 rn 06/24 08:56 Order name: Hepatic Function; Complete Time: 10:12 rn 06/24 08:56 Order name: Lipase; Complete Time: 10:12 rn 06/24 08:56 Order name: Blood Culture Adult (2) rn 06/24 08:56 Order name: Lactate; Complete Time: 10:30 rn 06/24 08:56 Order name: Procalcitonin; Complete Time: 10:12 rn 06/24 08:56 Order name: CT Abd/Pelvis - W/Contrast; Complete Time: 11:56 rn 06/24 08:56 Order name: Troponin (emerg Dept Use Only); Complete Time: 10:12 rn 06/24 08:56 Order name: Urine Microscopic Only; Complete Time: 10:30 rn 06/24 08:56 Order name: Urine Culture rn 06/24 09:11 Order name: Glucose, Ancillary Testing; Complete Time: 09:37 EDMS 06/24 09:38 Order name: Urine Dipstick--Ancillary (enter results); Complete Time: 12:18 bd 06/24 08:56 Order name: IV Saline Lock; Complete Time: 09:06 rn 06/24 08:56 Order name: Labs collected and sent; Complete Time: 09:06 rn 06/24 08:56 Order name: EKG; Complete Time: 08:57 rn 06/24 08:56 Order name: EKG - Nurse/Tech; Complete Time: 09:16 rn 06/24 08:56 Order name: Urine Dipstick-Ancillary (obtain specimen); Complete Time: 09:35 rn 06/24 09:24 Order name: XRAY Chest (1 view); Complete Time: 14:16 rn 06/24 10:40 Order name: US Abdomen Limited; Complete Time: 11:56 rn Administered Medications: 09:31 Drug: NS 0.9% 250 ml Route: IV; Rate: 1 bolus; Site: left forearm; sv 09:49 Follow up: Response: No adverse reaction; IV Status: Completed infusion; IV Intake: sv 250ml 09:49 Drug: Zofran 4 mg Route: IVP; Site: left forearm; sv 10:00 Follow up: Response: No adverse reaction sv Point of Care Testing: Blood Glucose: 09:11 Blood Glucose: 131 mg/dL; sv Ranges: Critical Glucose Levels:Adult <50 mg/dl or >400 mg/dl <40 mg/dl or >180 mg/dl Disposition: 06/24/18 12:01 Hospitalization ordered by Ankush Reyes for Observation. Preliminary diagnosis are Acute pancreatitis, Dehydration. - Bed requested for Telemetry/MedSurg (observation). - Status is Observation. aa5 - Condition is Stable. - Problem is new. - Symptoms have improved. UTI on Admission? No Signatures: Dispatcher [employer] EDSherrie Marcos RN RN Arvin Armendariz MD MD rn Calderon, Audri, RN RN aa5 Jeni Downey RN RN df Corrections: (The following items were deleted from the chart) 09:23 09:19 Constitutional: This is a well developed, well nourished patient who is awake, rn alert, and in no acute distress. Head/Face: Normocephalic, atraumatic. Eyes: Pupils equal round and reactive to light, extra-ocular motions intact. Lids and lashes normal. Conjunctiva and sclera are non-icteric and not injected. Cornea within normal limits. Periorbital areas with no swelling, redness, or edema. ENT: MMM rn 10:47 08:57 Head Brain Wo Cont+CT.RAD.BRZ ordered. EDMS EDMS 13:44 12:01 Hospitalization Ordered by Ankush Reyes MD for Observation. Preliminary diagnosis df is Acute pancreatitis; Dehydration. Bed requested for Telemetry/MedSurg (observation). Status is Observation. Condition is Stable. Problem is new. Symptoms have improved. UTI on Admission? No. rn 14:25 13:44 06/24/2018 12:01 Hospitalization Ordered by Ankush Reyes MD for Observation. aa5 Preliminary diagnosis is Acute pancreatitis; Dehydration. Bed requested for Telemetry/MedSurg (observation). Status is Observation. Condition is Stable. Problem is new. Symptoms have improved. UTI on Admission? No. df
[2018-06-24 12:15] LABS: Urine Blood NEGATIVE (NEG); Urine Glucose NEGATIVE (NEG); Urine Protein NEGATIVE (NEG); Urine Specific Gravity 1.015 (1.005-1.030)
--- NOTE | 2018-06-24 12:21 | RAD REPORT ---
EXAM DESCRIPTION: Corey Single View06/24/2018 9:50 am CLINICAL HISTORY: Shortness of breath COMPARISON: January 2018 FINDINGS: The lungs appear clear of acute infiltrate. The heart is normal size IMPRESSION: No acute abnormalities displayed
--- NOTE | 2018-06-24 14:47 | EKG ---
Test Date: 2018-06-24 Test Time: 09:11:04 Construction Job Cost Estimator: CARL MEASUREMENT RESULTS: Intervals: Rate: 55 HI: 138 QRSD: 100 QT: 490 QTc: 468 [place]: P: 53 HI: 138 QRS: 47 T: 72 INTERPRETIVE STATEMENTS: Sinus bradycardia with premature atrial complexes with aberrant conduction Otherwise normal ECG Compared to ECG 02/04/2018 15:15:37 Atrial premature complex(es) now present Aberrant conduction of supraventricular beat(s) now present Electronically Signed On 06-24-18 14:44:29 PATTERNMAKER ALL AROUND by Franco Preciado
[2018-06-24] MEDS ORDERED: ONDANSETRON 4 MG/2 ML VIAL IV PRN (15:11)
[2018-06-24] MEDS: NA CHLORIDE 0.9% 1,000 ML IV SCH (15:11)
[2018-06-24] MEDS ORDERED: TRAMADOL HCL 50 MG TAB PO PRN (18:51)
--- NOTE | 2018-06-24 18:57 | P.HP ---
Certification for Inpatient Patient admitted to: Observation With expected LOS: <2 Midnights Practitioner: I am a practitioner with admitting privileges, knowledge of patient current condition, hospital course, and medical plan of care. Services: Services provided to patient in accordance with Admission requirements found in Title 42 Section 412.3 of the Code of Federal Regulations Patient History Date of Service: 06/24/18 Primary Care Provider: Dr. Barnes Reason for admission: Generalized weakness, AB pain History of Present Illness: This is an 78-year-old male with history of Parkinson, and hernia who was admitted for intermittent abdominal pain. Per family, he had decreased eating for the past couple days and he also takes CBD oil. After taking that the day prior to arrival, he vomited a lot. He did see his primary care physician, was told everything was okay. He was still not drinking fluids. Per daughter-in- law, he went to the bathroom and he had a fall. He did not hit his head. He was noted to be very pale and clammy. They called the ambulance, his blood pressure was very low and he was brought to the ER. In the ER, he was given Zofran and IV fluids. He was found to have a lipase level of 2114. His abdominal CT and ultrasound were normal. His creatinine was elevated at 1.38. At the time of my exam, he was alert oriented, baseline mentation per family and in no acute distress. He was admitted for dehydration for observation and IV hydration. Allergies No Known Allergies Allergy (Unverified 02/04/18 17:35) Home Medications: Amlodipine [Norvasc*] 5 mg PO DAILY 06/24/18 Aspirin [Aspirin EC 81 MG] 81 mg PO DAILY 06/24/18 Atorvastatin Calcium [Lipitor*] 20 mg PO BEDTIME 06/24/18 Carbidopa/Levodopa 25-250 [Sinemet 25-250*] 1 tab PO QID 06/24/18 Donepezil [Aricept*] 5 mg PO BEDTIME 06/24/18 Fexofenadine/Pseudoephedrine [Franny-D 24 Hour Tablet] 1 each PO DAILY Fluticasone [Flonase 50MCG Nasal [place]*] 2 sprays NS DAILY 06/24/18 Furosemide [Lasix] 40 mg PO DAILY 02/26/19 - Past Medical/Surgical History Has patient received pneumonia vaccine in the past: Yes Diabetic: No -: Parkinsons -: Hernia -: Macular degeneration -: 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 moist/pink, EOMI, Sclerae nonicteric Neck: Supple, 2+ carotid pulse no bruit, No LAD, Without JVD or thyroid abnormality Respiratory: Clear to auscultation bilaterally, Normal air movement Cardiovascular: Regular rate/rhythm, Normal S1 S2 Gastrointestinal: Normal bowel sounds, No tenderness, Other (Hernia noted, not strangulated) Musculoskeletal: No tenderness Integumentary: No rashes Neurological: Normal gait, Normal speech, Normal strength at 5/5 x4 extr, Normal tone, Normal affect Lymphatics: No axilla or inguinal lymphadenopathy - Studies Laboratory Data (last 24 hrs) 06/24/18 09:10: WBC 4.5, Hgb 12.7 L, Hct 38.3 L, Plt Count 216 06/24/18 09:10: Sodium 137, Potassium 3.9, BUN 21 H, Creatinine 1.38 H, Glucose 116 H, Total Bilirubin 0.5, AST 29, ALT 7 L, Alkaline Phosphatase 104, Lipase 2114 H Assessment and Plan - Problems (Diagnosis) (1) Abdominal pain Current Visit: Yes Status: Acute Qualifiers: Abdominal location: generalized Qualified Code(s): R10.84 - Generalized abdominal pain (2) Elevated lipase Current Visit: Yes Status: Acute (3) Dehydration Current Visit: Yes Status: Acute (4) Acute kidney injury Current Visit: Yes Status: Acute (5) Inguinal hernia Current Visit: Yes Status: Chronic Qualifiers: Obstruction and gangrene presence: without obstruction or gangrene Laterality: unilateral Recurrence: not specified as recurrent Qualified Code (s): K40.90 - Unilateral inguinal hernia, without obstruction or gangrene, not specified as recurrent (6) Parkinsons disease Onset Date: 02/05/18 Current Visit: No Status: Chronic - Plan Patient Problems: Admit to floor with tele. Keep NPO IV fluids, pain control No evidence of infection at this time, will not start antibiotics. Zofran for nausea Monitor overnight. Repeat lipase levels tomorrow. Monitor via a.m. labs If no improvement in abdominal pain noted, may proceed with abdominal MRI.. Disposition: If improved, will restart clear liquid diet, advance tolerated. - Advance Directives Does patient have a Living Will: No Does patient have a Durable POA for Healthcare: Yes Time Spent Managing Pts Care (In Minutes): 55
[2018-06-24] MEDS: CARBIDOPA/LEVODOPA 25/250 TAB PO SCH (22:00)
[2018-06-25] MEDS: NA CHLORIDE 0.9% 1,000 ML IV SCH ×3 (02:00→13:22)
[2018-06-25 05:05] VITALS: BMI 23.0
[2018-06-25 05:30] LABS: Absolute Lymphocytes (CBC) 1.6 K/uL (0.7-4.9); Absolute Monocytes 0.6 K/uL (0.1-1.3); Absolute Neutrophil 2.4 K/uL (1.8-8.0); Basophils % 0.6 % (0-1.3); Eosinophils % 2.4 % (0-4.4); Hematocrit 35.8 % (39.6-49.0); Lymphocytes % 33.6 % (15.3-44.8); MPV 7.9 fL (7.6-11.3); Monocytes % 12.2 % (3.3-12.3); RBC Red Blood Cell Count 3.79 M/uL (4.33-5.43)
[2018-06-25 05:44] LABS: Albumin 3.4 g/dL (3.4-5.0); Bilirubin Total 0.5 mg/dL (0.2-1.0); Protein, Total 6.4 g/dL (6.4-8.2)
[2018-06-25] MEDS: CARBIDOPA/LEVODOPA 25/250 TAB PO SCH ×3 (09:04→16:43)
[2018-06-25 10:40] VITALS: O2SAT 98
[2018-06-25 18:25] VITALS: BP 118/68; TEMP 97.7
--- NOTE | 2018-06-25 18:27 | P.SSS ---
Patient History Date of Service: 06/25/18 Primary Care Provider: Dr. Barnes Reason for admission: Generalized weakness, AB pain History of Present Illness: This is an 78-year-old male with history of Parkinson, and hernia who was admitted for intermittent abdominal pain. Per family, he had decreased eating for the past couple days and he also takes CBD oil. After taking that the day prior to arrival, he vomited a lot. He did see his primary care physician, was told everything was okay. He was still not drinking fluids. Per daughter-in- law, he went to the bathroom and he had a fall. He did not hit his head. He was noted to be very pale and clammy. They called the ambulance, his blood pressure was very low and he was brought to the ER. In the ER, he was given Zofran and IV fluids. He was found to have a lipase level of 2114. His abdominal CT and ultrasound were normal. His creatinine was elevated at 1.38. At the time of my exam, he was alert oriented, baseline mentation per family and in no acute distress. He was admitted for dehydration for observation and IV hydration. Allergies No Known Allergies Allergy (Unverified 02/04/18 17:35) Home Medications: RX: Amlodipine [Norvasc*] 5 mg PO DAILY 06/24/18 RX: Aspirin [Aspirin EC 81 MG] 81 mg PO DAILY 06/24/18 RX: Atorvastatin Calcium [Lipitor*] 20 mg PO BEDTIME 06/24/18 RX: Carbidopa/Levodopa 25-250 [Sinemet 25-250*] 1 tab PO QID 06/24/18 RX: Donepezil [Aricept*] 5 mg PO BEDTIME 06/24/18 RX: Fexofenadine/Pseudoephedrine [Franny-D 24 Hour Tablet] 1 each PO DAILY RX: Fluticasone [Flonase 50MCG Nasal [place]*] 2 sprays NS DAILY 06/24/18 RX: Furosemide [Lasix] 40 mg PO DAILY 06/24/18 - Past Medical/Surgical History Has patient received pneumonia vaccine in the past: Yes Diabetic: No -: Parkinsons -: Hernia -: Macular degeneration -: 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 moist/pink, EOMI, Sclerae nonicteric Neck: Supple, 2+ carotid pulse no bruit, No LAD, Without JVD or thyroid abnormality Respiratory: Clear to auscultation bilaterally, Normal air movement Cardiovascular: Regular rate/rhythm, Normal S1 S2 Gastrointestinal: Normal bowel sounds, No tenderness Musculoskeletal: No tenderness Integumentary: No rashes Neurological: Normal gait, Normal speech, Normal strength at 5/5 x4 extr, Normal tone, Normal affect Lymphatics: No axilla or inguinal lymphadenopathy - Diagnosis (Problem(s)) (1) Abdominal pain Current Visit: Yes Status: Acute Qualifiers: Abdominal location: generalized Qualified Code(s): R10.84 - Generalized abdominal pain (2) Elevated lipase Current Visit: Yes Status: Acute (3) Dehydration Current Visit: Yes Status: Acute (4) Acute kidney injury Current Visit: Yes Status: Acute (5) Inguinal hernia Current Visit: Yes Status: Chronic Qualifiers: Obstruction and gangrene presence: without obstruction or gangrene Laterality: unilateral Recurrence: not specified as recurrent Qualified Code (s): K40.90 - Unilateral inguinal hernia, without obstruction or gangrene, not specified as recurrent (6) Parkinsons disease Onset Date: 02/05/18 Current Visit: No Status: Chronic Treatment Summary: Patient was admitted. He was kept NPO and He was provided with IV hydration. His BP lipase was in normal range, he was back to baseline mentation prior to discharge. He also stated that his abdominal pain had resolved. He was tolerating a clear liquid diet, was advanced to GI soft and tolerated that as well. He ambulated with physical therapy without any problems. He was discharged home in a stable manner - Disposition Disposition: ROUTINE DISCHARGE Condition: GOOD Patient Discharge Instructions: Please follow up with the primary care physician in 1-3 days. Please return to the emergency room for worsening symptoms. Diet: Regular Activity: Ad eleazar Time Spent Managing Pts Care (In Minutes): 55
--- NOTE | 2018-06-25 18:57 | CON ---
Date of Consultation: 06/25/2018 History Of Present Illness: Mr. Louis is an 78-year-old male with past medical history significant f or history of Parkinson disease, hypertension, and multiple episodes of dehydration, presented to [facility] complaining of abdominal pain. He was found to have severe dehydration and mild UTI and has been treated with IV fluids and conservative management with improvement in his dehydrati on. Past Medical History: Significant for history of hypertension, Parkinson disease, dementia, hernia, macular degeneration, appendectomy. Social History: Lives at home. No history of current alcohol or drug use reported. Review of Systems: Unremarkable. Family History: Noncontributory. Physical Examination: Vital Signs: At this time are showing temperature of 97.4, pulse rate of 59, respiratory rate 20 and blood pressure 122/55. General examination: He appears in no acute distress. Lungs: Clear to auscultation. Abdomen: Soft. Extremities: Without any evidence of edema. Laboratory Data: Showing creatinine improving to 1.06 from 1.3. All other labs are stable. Current Medications: Include normal saline at 100 cc an hour, tramadol p.r.n. for pain, and Aricept 5 mg at bedtime and carbidopa/levodopa. Impression: 1.[id number] renal failure secondary to dehydration, improving at this time. 2.Abdominal pain. Unclear etiology. Conservative management. 3.Dementia with underlying Parkinson's. Home medications have been resumed. Plan: Overall the patient's renal function has improved at this time. Continue IV fluids until vinny ent can tolerate p.o. intake. He remains n.p.o. at this time. Planning on getting MRI of abdomen if his abdominal pain has not resolved. Continue all other medications and plan of care. VV/MODL Voice ID: [id number] Report ID: [id number]
[2018-06-25] MEDS ORDERED: DONEPEZIL HCL 5 MG TAB PO SCH (21:00)
--- NOTE | 2018-06-26 08:58 | P.PN ---
Date of Service: 06/25/18 I got notified by family that patient was not doing well since being at home for the last couple hr. Patient was nauseated. It did not have any significant pain. Spoke to family and decision was made to see how patient does overnight. I advised a full liquid diet-if he does not tolerate he needs to be brought in for dehydration prevention. However, if patient has any worsening pain or nausea or vomiting, she needs to bring him into the emergency room or notify me(gave her my cell phone number) immediately and we can either directly admit him or have him evaluated in the ER.
== END 2018-06-25 19:45 | disposition home health service (06) ==
LOC: ER 08:50 → ERHOLD 12:47 → 4TH 13:52
PROVIDERS: ADMIT Family Medicine; ATTEND Family Medicine
DX: R10.84 Generalized abdominal pain (principal); E86.0 Dehydration; N17.9 Acute kidney failure, unspecified; K40.90 Unilateral inguinal hernia, without obstruction or gangrene, not specified as recurrent; R74.8 Abnormal levels of other serum enzymes; G20 Parkinson's disease; Z79.82 Long term (current) use of aspirin
CPT/HCPCS: 96365; 93005; 87040 ×2; 87088; 85025 ×2; 87086; 80048; 36415; 82962; 80076; 83605; 84484; 83690 ×2; 80053; 84145; 74177; 71045; 76705; 96375; 99285; Q9967; J7030 ×3; J2405; G0378 ×2; 81003; 81015

== ENCOUNTER 2018-06-26 09:43 | Emergency (ER) | payer MEDICARE ==
--- OUTSIDE RECORDS SUMMARY | 2018-06-26 10:00 | XMS REPORT ---
:1940 [facility] Address [address] Gutierrez [address] [place] [id number] Care Team Providers Name Role Phone Unavailable Unavailable Unavailable Problems This patient has no known problems. Allergies, Adverse Reactions, Alerts This patient has no known allergies or adverse reactions. Medications This patient has no known medications.
[2018-06-26 10:48] LABS: Absolute Lymphocytes (CBC) 0.8 K/uL (0.7-4.9); Absolute Monocytes 0.6 K/uL (0.1-1.3); Absolute Neutrophil 3.7 K/uL (1.8-8.0); Basophils % 0.4 % (0-1.3); Eosinophils % 1.1 % (0-4.4); Hematocrit 35.4 % (39.6-49.0); Lymphocytes % 16.1 % (15.3-44.8); MPV 7.9 fL (7.6-11.3); Monocytes % 10.9 % (3.3-12.3); RBC Red Blood Cell Count 3.76 M/uL (4.33-5.43)
[2018-06-26 10:55] LABS: Albumin 3.8 g/dL (3.4-5.0); Bilirubin Direct 0.2 mg/dL (0-0.2); Bilirubin Total 0.6 mg/dL (0.2-1.0); Potassium 4.2 mmol/L (3.5-5.1); Protein, Total 6.9 g/dL (6.4-8.2)
[2018-06-26] MEDS ORDERED: NA CHLORIDE 0.9% 250 ML ONE (10:58)
[2018-06-26] MEDS ORDERED: ONDANSETRON 4 MG/2 ML VIAL ONE (10:58)
[2018-06-26] MEDS ORDERED: MORPHINE 2 MG/ML SYR ONE (10:58)
[2018-06-26 12:49] LABS: Urine Blood NEGATIVE (NEG); Urine Glucose NEGATIVE (NEG); Urine Protein NEGATIVE (NEG); Urine Specific Gravity 1.015 (1.005-1.030); Urine pH 7.5 (5.0-7.0)
--- NOTE | 2018-06-26 13:12 | EDPHYS ---
Physician Documentation [facility] Name: Sumanth Louis Age: 78 yrs Sex: Male : 1940 Arrival Date: 06/26/2018 Time: 09:50 Bed 18 Private MD: Rafa Barnes ED Physician Sebastian Tineo HPI: 06/26 10:15 This 78 yrs old Male presents to ER via EMS with complaints of Abd Pain > 50 kb y/o. 10:15 The patient has not experienced similar symptoms in the past. The patient has been kb recently been admitted at [facility], was discharged yesterday, for similar complaints, but despite evaluation and treatment the patient has continued symptoms, and was told to return for re-evaluation. 10:16 The patient presents with abdominal pain in the upper abdomen. Onset: The kb symptoms/episode began/occurred 3 day(s) ago. The symptoms do not radiate. Associated signs and symptoms: Pertinent positives: nausea and vomiting, Pertinent negatives: anorexia, blood in stools, chest pain, constipation, diarrhea, dysuria, fever, headache, hematuria, palpitations, shortness of breath, testicular pain, vomiting blood. The symptoms are described as constant. Modifying factors: The symptoms are alleviated by nothing, the symptoms are aggravated by nothing. Severity of pain: At its worst the pain was moderate in the emergency department the pain is unchanged. 10:17 Pt came in 2 days ago for abd pain and weakness, admitted for pancreatitis. Discharged kb last night and was still complaining of pain. Family called and talked to Dr Mccormick and he told them to watch him overnight and return if pain got worse/persisted and/or if pt began vomiting again. . Historical: - PMHx: 09:54 Anemia; Anxiety; Bilateral deafness; Bilateral degeneration of macula; CHF; chronic sg pain syndrome; Dementia; Hernia; Hypertension; LOCALIZED EDEMA; osteoarthritis; PAD; Parkinsons; Rhinitis; right inguinal hernia; Vitamin D3 deficiency; - Immunization history:: Adult Immunizations. - Social history:: Smoking status: Patient/guardian denies using tobacco. - Ebola Screening: : Patient negative for fever greater than or equal to 101.5 degrees Fahrenheit, and additional compatible Ebola Virus Disease symptoms Patient denies exposure to infectious person Patient denies travel to an Ebola-affected area in the 21 days before illness onset No symptoms or risks identified at this time. ROS: 10:14 Constitutional: Negative for fever, chills, and weight loss, ENT: Negative for injury, kb pain, and discharge, Neck: Negative for injury, pain, and swelling, Cardiovascular: Negative for chest pain, palpitations, and edema, Respiratory: Negative for shortness of breath, cough, wheezing, and pleuritic chest pain, Back: Negative for injury and pain, : Negative for injury, bleeding, discharge, and swelling, MS/Extremity: Negative for injury and deformity, Skin: Negative for injury, rash, and discoloration, Neuro: Negative for headache, weakness, numbness, tingling, and seizure. 10:14 Abdomen/GI: Positive for abdominal pain, nausea and vomiting, Negative for diarrhea, constipation, abdominal cramps, abdominal distension, anorexia. Exam: 10:14 Constitutional: This is a well developed, well nourished patient who is awake, alert, kb and in no acute distress. Head/Face: Normocephalic, atraumatic. Chest/axilla: Normal chest wall appearance and motion. Nontender with no deformity. No lesions are appreciated. Cardiovascular: Regular rate and rhythm with a normal S1 and S2. No gallops, murmurs, or rubs. Normal PMI, no JVD. No pulse deficits. Respiratory: Lungs have equal breath sounds bilaterally, clear to auscultation and percussion. No rales, rhonchi or wheezes noted. No increased work of breathing, no retractions or nasal flaring. Back: No spinal tenderness. No costovertebral tenderness. Full range of motion. Skin: Warm, dry with normal turgor. Normal color with no rashes, no lesions, and no evidence of cellulitis. MS/ Extremity: Pulses equal, no cyanosis. Neurovascular intact. Full, normal range of motion. Neuro: Awake and alert, GCS 15, oriented to person, place, time, and situation. Cranial nerves II-XII grossly intact. Motor strength 5/5 in all extremities. Sensory grossly intact. Cerebellar exam normal. Normal gait. 10:14 Abdomen/GI: Inspection: abdomen appears normal, Bowel sounds: normal, in all quadrants, Palpation: soft, in all quadrants, nontender, in the right lower quadrant and left lower quadrant, moderate abdominal tenderness, in the right upper quadrant and left upper quadrant. Vital Signs: 09:52 BP 146 / 71; Pulse 98; Resp 19; Temp 98.7; Pulse Ox 98% on R/A; Pain 8/10; sg 11:22 BP 131 / 90; Pulse 75; Resp 17; Temp 97.8(TE); Pulse Ox 98% on R/A; mh5 12:21 BP 162 / 80; Pulse 72; Resp 18; Pulse Ox 98% on R/A; aj1 13:07 BP 159 / 72; Pulse 76; Resp 20; Temp 98.0(O); Pulse Ox 98% on R/A; mh5 13:44 BP 144 / 69; Pulse 75; Resp 18; Pulse Ox 97% on R/A; aj1 MDM: 09:52 Patient medically screened. kb 10:14 Data reviewed: vital signs, nurses notes. Data interpreted: Pulse oximetry: on room air kb is 98 %. Interpretation: normal. 12:29 Physician consultation: Ankush Reyes MD was contacted at 12:30, regarding consult, kb patient's condition. ED course: Pt tolerating PO intake. Denies pain at this time. Educated on diagnostic findings and need for outpatient follow up with GI for further work-up. CT, US and x-rays reviewed from recent admission 2 days ago. Family members are upset that pt wasn't seen by GI when he was admitted and that he will not be seen by one here now. Educated that we do not have GI available because they are not on-call, but offered to give a list of the ones in town. . 13:10 Counseling: I had a detailed discussion with the patient and/or guardian regarding: the kb historical points, exam findings, and any diagnostic results supporting the discharge/admit diagnosis, lab results, the need for outpatient follow up, a silo erector, to return to the emergency department if symptoms worsen or persist or if there are any questions or concerns that arise at home. ED course: Dr Murcia's office called. Will see him upon discharge from ED. 06/26 10:07 Order name: Hepatic Function; Complete Time: 10:55 kb 06/26 10:07 Order name: Basic Metabolic Panel; Complete Time: 10:55 kb 06/26 10:07 Order name: CBC with Diff; Complete Time: 10:57 kb 06/26 10:07 Order name: Lipase; Complete Time: 10:55 kb 06/26 12:38 Order name: Urine Dipstick--Ancillary (enter results); Complete Time: 13:00 em1 06/26 10:07 Order name: IV Saline Lock; Complete Time: 10:58 kb 06/26 10:07 Order name: Labs collected and sent; Complete Time: 10:58 kb 06/26 10:58 Order name: PO challenge; Complete Time: 11:42 kb Administered Medications: 10:58 Drug: morphine 2 mg Route: IVP; Site: left antecubital; aj1 11:30 Follow up: Response: No adverse reaction; Pain is decreased 10:58 Drug: Zofran 4 mg Route: IVP; Site: left antecubital; aj1 11:30 Follow up: Response: No adverse reaction; Nausea is decreased 10:58 Drug: NS 0.9% 250 ml Route: IV; Rate: bolus; Site: left antecubital; aj1 11:30 Follow up: IV Status: Completed infusion; IV Intake: 250ml aj Disposition: 06/26/18 13:11 Discharged to Home. Impression: Upper abdominal pain, unspecified. - Condition is Stable. - Discharge Instructions: Abdominal Pain, Adult, [id number]. - Prescriptions for Bentyl 20 mg Oral Tablet - take 1 tablet by ORAL route every 6 hours As needed; 20 tablet. Zofran 4 mg Oral Tablet - take 1 tablet by ORAL route every 6 hours As needed; 20 tablet. - Medication Reconciliation Form, Thank You Letter, Antibiotic Education, Prescription Opioid Use form. - Follow up: Rick Murcia MD; When: Upon discharge from the Emergency Department; Reason: Recheck today's complaints. Addendum: 06/27/2018 19:04 Co-signature as Attending Physician, Sebastian Tineo MD I agree with the assessment and k dr plan of care. Signatures: Dispatcher [employer] EDPoornima George FNP-C FNP-Gisselle Scott, RN RN aj1 Kd Ortiz RN RN Sebastian Martines MD MD [facility] Corrections: (The following items were deleted from the chart) 06/26 13:54 13:11 06/26/2018 13:11 Discharged to Home. Impression: Upper abdominal pain, aj1 unspecified. Condition is Stable. Forms are Medication Reconciliation Form, Thank You Letter, Antibiotic Education, Prescription Opioid Use. Follow up: Rick Murcia; When: Upon discharge from the Emergency Department; Reason: Recheck today's complaints. kb
--- NOTE | 2018-06-26 13:12 | ER ---
Nurse's Notes [facility] Name: Sumanth Louis Age: 78 yrs Sex: Male : 1940 Arrival Date: 06/26/2018 Time: 09:50 Bed 18 Private MD: Rafa Barnes Diagnosis: Upper abdominal pain, unspecified Presentation: 06/26 09:51 Presenting complaint: EMS states: Was discharged from the hospital with a diagnosis of sg Pancreatitis, reports eating prior to dc to home yesterday, this morning has had nausea/vomiting/abd pain, denies fever at home. Transition of care: patient was not received from another setting of care. Onset of symptoms was June 26, 2018. Risk Assessment: Do you want to hurt yourself or someone else? Patient reports no desire to harm self or others. Initial Sepsis Screen: Does the patient meet any 2 criteria? No. Patient's initial sepsis screen is negative. Does the patient have a suspected source of infection? No. Patient's initial sepsis screen is negative. Care prior to arrival: None. 09:51 Method Of Arrival: EMS: [facility] 09:51 Acuity: [facility] 3 sg Historical: - PMHx: 09:54 Anemia; Anxiety; Bilateral deafness; Bilateral degeneration of macula; CHF; chronic sg pain syndrome; Dementia; Hernia; Hypertension; LOCALIZED EDEMA; osteoarthritis; PAD; Parkinsons; Rhinitis; right inguinal hernia; Vitamin D3 deficiency; - Immunization history:: Adult Immunizations. - Social history:: Smoking status: Patient/guardian denies using tobacco. - Ebola Screening: : Patient negative for fever greater than or equal to 101.5 degrees Fahrenheit, and additional compatible Ebola Virus Disease symptoms Patient denies exposure to infectious person Patient denies travel to an Ebola-affected area in the 21 days before illness onset No symptoms or risks identified at this time. Screenin:00 Abuse screen: Denies threats or abuse. Denies injuries from another. Nutritional aj1 screening: No deficits noted. Tuberculosis screening: No symptoms or risk factors identified. 13:44 Fall Risk No fall in past 12 months (0 pts). Secondary diagnosis (15 points) No IV (0 aj1 pts). Ambulatory Aid- Crutches/Cane/Walker (15 pts). Gait- Weak (10 pts.). Mental Status- Overestimates/Forgets Limitations (15 pts.). Total Han Fall Scale indicates High Risk Score (45 or more points). Family Present and informed to notify staff if the need to leave the bedside As available patient and family educated on Fall Prevention Program and Strategies. Assessment: 10:00 General: Appears in no apparent distress. uncomfortable, Behavior is calm, cooperative, aj1 appropriate for age. Pain: Complains of pain in abdomen Pain currently is 8 out of 10 on a pain scale. Neuro: Level of Consciousness is awake, alert, obeys commands, confused, Speech is normal. Cardiovascular: Patient's skin is warm and dry. Respiratory: Airway is patent Respiratory effort is even, unlabored, Respiratory pattern is regular, symmetrical. GI: Abdomen is flat, non-distended, Bowel sounds present X 4 quads. Abd is soft X 4 quads Reports nausea, vomiting, Patient currently denies diarrhea. : No signs and/or symptoms were reported regarding the genitourinary system. EENT: No signs and/or symptoms were reported regarding the EENT system. Derm: No signs and/or symptoms reported regarding the dermatologic system. Skin is pink, warm \T\ dry. normal. Musculoskeletal: No signs and/or symptoms reported regarding the musculoskeletal system. Circulation, motion, and sensation intact. 11:00 Reassessment: Patient appears in no apparent distress at this time. No changes from aj1 previously documented assessment. Patient and/or family updated on plan of care and expected duration. Pain level reassessed. Patient is alert, oriented x 3, equal unlabored respirations, skin warm/dry/pink. 11:30 Reassessment: PO challenge initiated. aj1 12:20 Reassessment: Patient and/or family updated on plan of care and expected duration. Pain aj1 level reassessed. General: Appears in no apparent distress. comfortable, Behavior is calm, cooperative, appropriate for age. Neuro: Level of Consciousness is awake, alert, obeys commands, confused. Cardiovascular: Patient's skin is warm and dry. Respiratory: Airway is patent Respiratory effort is even, unlabored, Respiratory pattern is regular, symmetrical. GI: Abdomen is non-distended. Derm: Skin is pink, warm \T\ dry. normal. Musculoskeletal: Circulation, motion, and sensation intact. 13:44 Reassessment: Patient appears in no apparent distress at this time. No changes from aj1 previously documented assessment. Patient and/or family updated on plan of care and expected duration. Pain level reassessed. Patient is alert, oriented x 3, equal unlabored respirations, skin warm/dry/pink. Vital Signs: 09:52 BP 146 / 71; Pulse 98; Resp 19; Temp 98.7; Pulse Ox 98% on R/A; Pain 8/10; sg 11:22 BP 131 / 90; Pulse 75; Resp 17; Temp 97.8(TE); Pulse Ox 98% on R/A; mh5 12:21 BP 162 / 80; Pulse 72; Resp 18; Pulse Ox 98% on R/A; aj1 13:07 BP 159 / 72; Pulse 76; Resp 20; Temp 98.0(O); Pulse Ox 98% on R/A; mh5 13:44 BP 144 / 69; Pulse 75; Resp 18; Pulse Ox 97% on R/A; aj1 ED Course: 09:50 Patient arrived in ED. sg 09:50 Rafa Barnes DO is Private Physician. sg 09:52 Poornima Quintero FNP-C is [facility]. kb 09:52 Sebastian Tineo MD is Attending Physician. kb 09:52 Triage completed. sg 09:52 Arm band placed on. sg 10:00 No provider procedures requiring assistance completed. aj1 10:08 Gisselle Hernandez, RN is Primary Nurse. aj1 10:32 Patient has correct armband on for positive identification. Placed in gown. Bed in low mh5 position. Call light in reach. Side rails up X2. Adult w/ patient. Warm blanket given. Pulse ox on. NIBP on. 10:32 Initial lab(s) drawn, by me, sent to lab. Inserted saline lock: 22 gauge in left mh5 antecubital area, using aseptic technique. Blood collected. 13:11 Rick Murcia MD is Referral Physician. kb 13:43 IV discontinued, intact, bleeding controlled, No redness/swelling at site. Pressure aj1 dressing applied. Administered Medications: 10:58 Drug: morphine 2 mg Route: IVP; Site: left antecubital; aj1 11:30 Follow up: Response: No adverse reaction; Pain is decreased aj1 10:58 Drug: Zofran 4 mg Route: IVP; Site: left antecubital; aj1 11:30 Follow up: Response: No adverse reaction; Nausea is decreased aj1 10:58 Drug: NS 0.9% 250 ml Route: IV; Rate: bolus; Site: left antecubital; aj1 11:30 Follow up: IV Status: Completed infusion; IV Intake: 250ml aj1 Intake: 11:30 IV: 250ml; Total: 250ml. aj1 Outcome: 13:11 Discharge ordered by MD. shaffer 13:45 Discharged to home via wheelchair. aj1 13:45 Condition: stable 13:45 Discharge instructions given to patient, family, Instructed on discharge instructions, follow up and referral plans. medication usage, Demonstrated understanding of instructions, follow-up care, medications, Prescriptions given X 2. 13:54 Patient left the ED. aj1 Signatures: Poornima Quintero, TELEPHONE CLERK-C TELEPHONE CLERK-Gisselle Scott RN RN [facility] Kd Ortiz RN RN [place] [id number]
[2018-06-26 14:15] VITALS: TEMP 98
[2018-06-26 14:16] VITALS: BP 144/69; O2SAT 97
--- NOTE | 2018-06-26 17:56 | P.CNS ---
Date of Consult: 06/26/18 Reason for Consult: Abdominal pain History of Present Illness: This is a 78-year-old male with Parkinson's disease who was recently admitted for abdominal pain, found to have elevated lipase. His imaging of the abdomen was negative for any acute changes, repeat lipase was in normal range. Prior to discharge she was tolerating full liquid diet. He was discharged yesterday for abdominal pain. Per family, his abdominal pain return when he got home that night. Family called the community product specialist in the hospital, a decision was made to observe patient overnight to see how he does. And the symptoms got worse restarted vomiting, he was told to come into the ER. Per [id number], he was complaining again of abdominal pain, and was nauseous. He did tolerate his medications this morning, though not really wanting to eat. He was brought to the ER again. His labs are remarkable, lipase in normal range, hemodynamically stable. Abdominal pain and nausea resolved after the morphine. Patient tolerated some soda and water in the ER. I Was consulted to discuss with patient's family regarding further care. Allergies No Known Allergies Allergy (Unverified 02/04/18 17:35) Home Medications: Amlodipine [Norvasc*] 5 mg PO DAILY 06/24/18 Aspirin [Aspirin EC 81 MG] 81 mg PO DAILY 06/24/18 Atorvastatin Calcium [Lipitor*] 20 mg PO BEDTIME 06/24/18 Carbidopa/Levodopa 25-250 [Sinemet 25-250*] 1 tab PO QID 06/24/18 Donepezil [Aricept*] 5 mg PO BEDTIME 06/24/18 Fexofenadine/Pseudoephedrine [Franny-D 24 Hour Tablet] 1 each PO DAILY Fluticasone [Flonase 50MCG Nasal [place]*] 2 sprays NS DAILY 06/24/18 Furosemide [Lasix] 40 mg PO DAILY 06/24/18 - Past Medical/Surgical History Diabetic: No -: Parkinsons -: Hernia -: Macular degeneration -: 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 moist/pink, EOMI, Sclerae nonicteric Neck: Supple, 2+ carotid pulse no bruit, No LAD, Without JVD or thyroid abnormality Respiratory: Clear to auscultation bilaterally, Normal air movement Cardiovascular: Regular rate/rhythm, Normal S1 S2 Gastrointestinal: Normal bowel sounds, No tenderness Musculoskeletal: No tenderness Integumentary: No rashes Neurological: Normal gait, Normal speech, Normal tone, Normal affect Lymphatics: No axilla or inguinal lymphadenopathy Laboratory Data (last 24 hrs) 06/26/18 10:30: WBC 5.1, Hgb 12.3 L, Hct 35.4 L, Plt Count 204 06/26/18 10:30: Sodium 140, Potassium 4.2, BUN 14, Creatinine 1.26, Glucose 110 H, Total Bilirubin 0.6, AST 29, ALT 9 L, Alkaline Phosphatase 98, Lipase 201 Conclusions/Impression: Abdominal pain Is explained to family that unfortunately we do not have gastroenterology specialties resolved called today here. And as his labs and imaging were normal , we would not be able to transfer patient as this would be considered a lateral transfer. Patient really would benefit from seeing Gastroenterology. I personally called Dr. allen's office to schedule the patient an appointment. Spoke with Dr. allen's office staff and they were very happy to help and were able to schedule patient to be seen today in their clinic. Time Spent Managing Pts care (In Minutes): 35
== END 2018-06-26 13:54 | disposition home or self-care (01) ==
LOC: ER 09:43
DX: R10.10 Upper abdominal pain, unspecified (principal); G20 Parkinson's disease; F02.80 Dementia in other diseases classified elsewhere, unspecified severity, without behavioral disturbance, psychotic disturbance, mood disturbance, and anxiety
CPT/HCPCS: 96365; 85025; 80048; 36415; 80076; 81003; 83690; 96375; 99284; J2270; J2405

== ENCOUNTER 2018-07-14 09:00 | Observation (INO) | payer MEDICARE ==
--- OUTSIDE RECORDS SUMMARY | 2018-07-14 09:06 | XMS REPORT | Clinical Summary ---
:1940 Author Organization [facility] [employer] Address [address] [place] [address] Care Team Providers Name Role Phone Rafa Barnes Primary Care Provider Allergies No Known Allergies Medications Medication Sig Dispensed Refills Start Date End Date Status aspirin 81 MG EC Take 81 mg by 0 Active tablet mouth daily. atorvastatin Take 20 mg by 0 Active (LIPITOR) 20 MG mouth daily. tablet carbidopa-levodopa Take 1 tablet 0 Active (SINEMET) 25-250 mg by mouth 3 per tablet (three) times daily. donepezil (ARICEPT) Take 5 mg by 0 Active 5 MG tablet mouth nightly. fluticasone 1 spray by 0 Active (FLONASE) 50 Nasal route mcg/actuation nasal daily. spray multivitamin Take 1 capsule 0 Active capsule by mouth daily. metoprolol Take 0.5 90 tablet 3 07/01/2018 07/01/2019 Active (LOPRESSOR) 25 MG tablets (12.5 tablet mg total) by mouth 2 (two) times daily. pantoprazole Take 1 tablet 90 tablet 0 07/02/2018 09/30/2018 Active (PROTONIX) 40 MG (40 mg total) tablet by mouth daily for 90 days. fexofenadine-pseudo Take 1 tablet 0 07/01/2018 Discontinued ephedrine by mouth (LEANDER-D 24) daily. 180-240 mg per 24 hr tablet amLODIPine Take 5 mg by 0 07/01/2018 Discontinued (NORVASC) 5 MG mouth daily. tablet furosemide (LASIX) Take 40 mg by 0 07/01/2018 Discontinued 40 MG tablet mouth 2 (two) times daily. aluminum & Take 30 mLs by 355 mL 0 07/01/2018 07/11/2018 magnesium mouth every 6 hydroxide-simethico (six) hours as ne (MAALOX PLUS) needed for up 400-400-40 mg/5 mL to 10 days. suspension Active Problems Problem Noted Date Syncope, unspecified syncope type 06/27/2018 Encounters Date Type Specialty Care Team Description 06/27/2018 - Hospital Encounter General Internal Mak, Syncope, unspecified syncope type (Primary Dx); 07/01/2018 Medicine MD Radha Acute nonintractable headache, unspecified headache type; Nilay, New onset headache; Abby Hilloma, Parkinson's disease ([facility]); Hypotension, unspecified hypotension type; Joann, Yashash Volume depletion; D NSVT (nonsustained ventricular tachycardia) ([facility]) Lacho Díaz MD 06/27/2018 Orders Only General Internal Medicine 06/27/2018 Travel after 07/13/2017 Social History Tobacco Use Types Packs/Day Years Used Date Never Smoker Smokeless Tobacco: Never Used Alcohol Use Drinks/Week oz/Week Comments No Alcohol Habits Answer Date Recorded How often do you have a drink containing alcohol? Never 06/27/2018 How many drinks containing alcohol do you have on a typical Not asked day when you are drinking? How often do you have six or more drinks on one occasion? Not asked Sex Assigned at Date Recorded Not on file Job Start Date Occupation Industry Not on file Not on file Not on file Travel History Travel Start Travel End No recent travel history available. Last Filed Vital Signs Vital Sign Reading Time Taken Blood Pressure 106/55 07/01/2018 11:12 AM GLUE CLAMP OPERATOR Pulse 58 07/01/2018 11:12 AM GLUE CLAMP OPERATOR Temperature 35.9 C (96.6 F) 07/01/2018 11:12 AM GLUE CLAMP OPERATOR Respiratory Rate 22 07/01/2018 11:12 AM GLUE CLAMP OPERATOR Oxygen Saturation 100% 07/01/2018 11:12 AM GLUE CLAMP OPERATOR Inhaled Oxygen Concentration - - Weight 60.3 kg (133 lb) 06/28/2018 12:30 AM GLUE CLAMP OPERATOR Height 162.6 cm (5' 4") 06/28/2018 12:30 AM GLUE CLAMP OPERATOR Body Mass Index 22.83 06/28/2018 12:30 AM GLUE CLAMP OPERATOR Plan of Treatment Not on file Procedures Procedure Name Priority Date/Time Associated Comments Diagnosis RHYTHM STRIP - SCAN 07/04/2018 11:33 AM GLUE CLAMP OPERATOR REPORT OF PROCEDURE - 07/01/2018 4:04 ENDOSCOPY SCAN PM GLUE CLAMP OPERATOR COMPREHENSIVE METABOLIC Routine 07/01/2018 12:47 Results for this PANEL PM GLUE CLAMP OPERATOR procedure are in the results section. LIPASE Routine 07/01/2018 12:47 Results for this PM GLUE CLAMP OPERATOR procedure are in the results section. MAGNESIUM Routine 07/01/2018 12:47 Results for this PM GLUE CLAMP OPERATOR procedure are in the results section. ECHOCARDIOGRAM REPORT - 06/30/2018 9:21 SCAN PM GLUE CLAMP OPERATOR PERIPHERAL VASCULAR 06/30/2018 9:20 REPORT - SCAN PM GLUE CLAMP OPERATOR 2D ECHO W/ DOPPLER ONOFRE 06/30/2018 2:08 Results for this (CW/PW/COLOR) PM GLUE CLAMP OPERATOR procedure are in the results section. CBC W/PLT COUNT & AUTO Routine 06/30/2018 5:01 Results for this DIFFERENTIAL AM GLUE CLAMP OPERATOR procedure are in the results section. MAGNESIUM Routine 06/30/2018 5:01 Results for this AM GLUE CLAMP OPERATOR procedure are in the results section. CBC W/PLT COUNT & AUTO Routine 06/30/2018 5:01 Results for this DIFFERENTIAL AM GLUE CLAMP OPERATOR procedure are in the results section. BASIC METABOLIC PANEL Routine 06/30/2018 5:01 Results for this (7) AM GLUE CLAMP OPERATOR procedure are in the results section. CAROTID DOPPLER Routine 06/29/2018 1:50 Results for this BILATERAL PM GLUE CLAMP OPERATOR procedure are in the results section. CBC W/PLT COUNT & AUTO Routine 06/29/2018 5:18 Results for this DIFFERENTIAL AM GLUE CLAMP OPERATOR procedure are in the results section. MAGNESIUM Routine 06/29/2018 5:18 Results for this AM GLUE CLAMP OPERATOR procedure are in the results section. CBC W/PLT COUNT & AUTO Routine 06/29/2018 5:18 Results for this DIFFERENTIAL AM GLUE CLAMP OPERATOR procedure are in the results section. BASIC METABOLIC PANEL Routine 06/29/2018 5:18 Results for this (7) AM GLUE CLAMP OPERATOR procedure are in the results section. US ABDOMEN LIMITED Routine 06/29/2018 12:00 Results for this AM GLUE CLAMP OPERATOR procedure are in the results section. ECG 12-LEAD Routine 06/28/2018 10:01 Results for this AM GLUE CLAMP OPERATOR procedure are in the results section. BLOOD CULTURE Routine 06/28/2018 5:17 Results for this AM GLUE CLAMP OPERATOR procedure are in the results section. CBC W/PLT COUNT & AUTO Routine 06/28/2018 5:09 Results for this DIFFERENTIAL AM GLUE CLAMP OPERATOR procedure are in the results section. CBC W/PLT COUNT & AUTO Routine 06/28/2018 5:09 Results for this DIFFERENTIAL AM GLUE CLAMP OPERATOR procedure are in the results section. BASIC METABOLIC PANEL Routine 06/28/2018 5:09 Results for this (7) AM GLUE CLAMP OPERATOR procedure are in the results section. BLOOD CULTURE Routine 06/28/2018 5:09 Results for this AM GLUE CLAMP OPERATOR procedure are in the results section. CT BRAIN WITHOUT IV STAT 06/27/2018 11:35 Results for this CONTRAST PM GLUE CLAMP OPERATOR procedure are in the results section. URINALYSIS W/ REFLEX STAT 06/27/2018 9:28 Results for this URINE CULTURE PM GLUE CLAMP OPERATOR procedure are in the results section. XR CHEST 1 VIEW STAT 06/27/2018 8:41 Results for this PORTABLE/BEDSIDE PM GLUE CLAMP OPERATOR procedure are in the results section. ECG 12-LEAD Routine 06/27/2018 7:09 PM GLUE CLAMP OPERATOR Procedure Note - Interface, External Ris In - 06/27/2018 7:45 PM GLUE CLAMP OPERATOR Ventricular Rate 56 BPM Atrial Rate 56 BPM P-R Interval 128 ms QRS Duration 86 ms Q-T Interval 470 ms QTC Calculation(Bazett) 453 ms P [place] 1 degrees R [place] -3 degrees T [place] 39 degrees Junctional rhythm Abnormal ECG No previous ECGs available ECG 12-LEAD STAT 06/27/2018 7:09 PM GLUE CLAMP OPERATOR CBC W/PLT COUNT & AUTO STAT 06/27/2018 6:55 PM GLUE CLAMP OPERATOR Results for this DIFFERENTIAL procedure are in the results section. PHOSPHORUS STAT 06/27/2018 6:55 PM GLUE CLAMP OPERATOR MAGNESIUM STAT 06/27/2018 6:55 PM GLUE CLAMP OPERATOR HEPATIC FUNCTION PANEL STAT 06/27/2018 6:55 PM GLUE CLAMP OPERATOR LIPASE STAT 06/27/2018 6:55 PM GLUE CLAMP OPERATOR TROPONIN I STAT 06/27/2018 6:55 PM GLUE CLAMP OPERATOR B-TYPE NATRIURETIC FACTOR STAT 06/27/2018 6:55 PM GLUE CLAMP OPERATOR Results for this (BNP) procedure are in the results section. BASIC METABOLIC PANEL (7) STAT 06/27/2018 6:55 PM GLUE CLAMP OPERATOR CBC W/PLT COUNT & AUTO STAT 06/27/2018 6:55 PM GLUE CLAMP OPERATOR Results for this DIFFERENTIAL procedure are in the results section. ED ECG INTERPRETATION Routine 06/27/2018 6:41 PM GLUE CLAMP OPERATOR after 07/13/2017 Results RHYTHM STRIP - SCAN (07/04/2018 11:33 AM GLUE CLAMP OPERATOR) Narrative Performed At EKG-SCANNED (07/01/2018 4:04 PM GLUE CLAMP OPERATOR) Narrative Performed At Magnesium (07/01/2018 12:47 PM GLUE CLAMP OPERATOR)Only the most recent of4 resultswithin the time period is included. Magnesium 1.9 1.6 - 2.6 mg/dL [facility] Specimen Blood - Arm, Left Performing Organization Address [facility] Phone Number [address] [address] [phone] CENTER Lipase (07/01/2018 12:47 PM GLUE CLAMP OPERATOR)Only the most recent of2 resultswithin the time period is included. Lipase 521 (H) 8 - 78 U/L [facility] Specimen Blood - Arm, Left Performing Organization Address [facility] Phone Number [address] [phone] [place] Comprehensive metabolic panel (07/01/2018 12:47 PM GLUE CLAMP OPERATOR) Protein, Total 6.3 6.0 - 8.3 gm/dL [facility] Albumin 3.7 3.5 - 5.0 g/dL [facility] Alkaline Phosphatase 86 40 - 150 U/L [facility] Total Bilirubin 0.4 0.2 - 1.2 mg/dL [facility] Sodium 139 136 - 145 meq/L [facility] Potassium 4.1 3.5 - 5.1 meq/L [facility] Chloride 104 98 - 107 meq/L [facility] CO2 27 22 - 29 meq/L [facility] BUN 9 7 - 21 mg/dL [facility] Creatinine 1.06 0.57 - 1.25 mg/dL [facility] Glucose 104 70 - 105 mg/dL [facility] Calcium 9.1 8.4 - 10.2 mg/dL [facility] AST 19 5 - 34 U/L [facility] ALT <6 (L) 6 - 55 U/L [facility] EGFR 67Comment: ESTIMATED GFR mL/min/1.73 sq m [facility] IS NOT ACCURATE [facility] CREATININE CLEARANCE IN PREDICTING GLOMERULAR FILTRATION RATE. ESTIMATED GFR IS NOT APPLICABLE FOR DIALYSIS PATIENTS. Specimen Blood - Arm, Left Performing Organization Address City/State/Zipcode Phone Number [facility] [address] [place] [address] [phone] CENTER ECHOCARDIOGRAM REPORT - SCAN (06/30/2018 9:21 PM GLUE CLAMP OPERATOR) Narrative Performed At PERIPHERAL VASCULAR REPORT - SCAN (06/30/2018 9:20 PM GLUE CLAMP OPERATOR) Narrative Performed At 2D Echo W/Doppler(CW/PW/Color) (06/30/2018 2:08 PM GLUE CLAMP OPERATOR) Ejection Fraction [facility] Narrative Performed At Transthoracic Echocardiography Report (TTE) [facility] Demographics Patient NameCARINA LOUIS Date of Study06/30/2018 Gender Male Visit [id number] Race Unknown [id number] Number Date of 1940 [facility] Physician Age 78 year(s) SonographerEL Hope, RDCS,RVT,RDMS Interpreting Odilon Velez MD Physician Procedure Type of Study TTE procedure:2DECHO W DOPPLER(CW/PW/COLOR) (ONOFRE) Indications:Unexplained Pre-syncope/Syncope. Clinical History Syncope, CHF, HLD, HTN HGB 10.0 HCT 31.4 % Height: 64 inches Weight: 60.33 kg (133 lbs) BSA: 1.64 m^2 BMI: 22.83 kg/m^2 HR: 64 bpm BP: 117/56 mmHg Summary Normal left ventricular chamber size. Normal wall thickness. Normal overall left ventricular systolic function. No apparent segmental wall motion abnormalities. Estimated LVEF by qualitative assessment is normal (55-60%) . Grade 1 diastolic dysfunction (impaired relaxation and low-normal LA pressure). Estimated peak systolic PA pressure is 25-30 mmHg . No pericardial effusion is visualized. Signature Findings Left Ventricle Normal left ventricular chamber size. Normal wall th ickness. Normal overall left ventricular systolic fu nction. No apparent segmental wall motion ab normalities. Es timated LVEF by qualitative assessment is normal (5 5-60%) . Gr shaniqua 1 diastolic dysfunction (impaired relaxation an d low-normal LA pressure). Left AtriumLA size is severely enlarged (>48 ml/m2) . Right VentricleThe right ventricular chamber size and systolic fu nction are within normal limits. Right Atrium RA size is normal. Aortic Valve Mild AoV cusp thickening. Th ere is mild aortic regurgitation. Mitral Valve Mild MV leaflet thickening. Mi ld mitral regurgitation. Tricuspid ValveTV structure is normal. Mi ld tricuspid regurgitation. Es timated peak systolic PA pressure is 25-30 mmHg . Pulmonic Valve Normal PV structure appears normal by available vi ews. A trace of pulmonary regurgitation. AortaAortic root size (SInus of Valsalva diameter) is no rmal . PericardiumNo pericardial effusion is visualized. IVC/SVC/PA/PV/PleuralThe estimated RA pressure by IVC dynamics 0-5mmHg . Chambers/Structures Left Atrium LA Dimension: 3.79 cmLA Area: 28.21 cm^2 LA Volume: 107 ml LA Vol. Index: 65 ml/m^2 Left Ventricle LVIDd: 4.41 cm LVIDs: 3.03 cm LV Septum Diastolic: 1.06 cm LV PW Diastolic: 1.01 cm LV FS: 31.3 % LVOT Diameter: 2.21 cm Aorta Ao Root S of Sherlyn.: 3.38 cm Doppler/Quantitative Measurements Aortic Valve Peak Velocity: 1.49 m/sMean Velocity: 1.01 m/s Peak Gradient: 8.84 mmHg Mean Gradient: 4.81 mmHg AV Area (continuity): 2.64 cm^2 AV VTI: 31.54 cm AV DVI: 0.69 LVOT Peak Velocity: 0.85 m/s Peak Gradient: 2.92 mmHg Mean Velocity: 0.61 m/s Mean Gradient: 1.65 mmHg LVOT Diameter: 2.21 cmLVOT VTI: 21.74 cm LVOT Area: 3.84 cm^2LVOT SV:83.35 ml LVOT CO: 5.33 l/min LVOT CI: 3.25 l/min/m^2 Tricuspid Valve TR Velocity: 2.44 m/s TR Gradient: 23.81 mmHg Procedure Note Interface, External Ris In - 06/30/2018 5:20 PM GLUE CLAMP OPERATOR Transthoracic Echocardiography Report (TTE) Demographics Patient Name CARINA LOUIS Date of Study 06/30/2018 Gender Male Visit Number [id number] Race Unknown Room Number 2255 Number Date of 1940 Referring MICHELLE RIVAS Physician Age 78 year(s) Examination Supervisor EL Hope, RDCS,RVT,RDMS Interpreting Odilon Velez MD Physician Procedure Type of Study TTE procedure:2DECHO W DOPPLER(CW/PW/COLOR) (ONOFRE) Indications:Unexplained Pre-syncope/Syncope. Clinical History Syncope, CHF, HLD, HTN HGB 10.0 HCT 31.4 % Height: 64 inches Weight: 60.33 kg (133 lbs) BSA: 1.64 m^2 BMI: 22.83 kg/m^2 HR: 64 bpm BP: 117/56 mmHg Summary Normal left ventricular chamber size. Normal wall thickness. Normal overall left ventricular systolic function. No apparent segmental wall motion abnormalities. Estimated LVEF by qualitative assessment is normal (55-60%) . Grade 1 diastolic dysfunction (impaired relaxation and low-normal LA pressure). Estimated peak systolic PA pressure is 25-30 mmHg . No pericardial effusion is visualized. Signature Findings Left Ventricle Normal left ventricular chamber size. Normal wall thickness. Normal overall left ventricular systolic function. No apparent segmental wall motion abnormalities. Estimated LVEF by qualitative assessment is normal (55-60%) . Grade 1 diastolic dysfunction (impaired relaxation and low-normal LA pressure). Left Atrium LA size is severely enlarged (>48 ml/m2) . Right Ventricle The right ventricular chamber size and systolic function are within normal limits. Right Atrium RA size is normal. Aortic Valve Mild AoV cusp thickening. There is mild aortic regurgitation. Mitral Valve Mild MV leaflet thickening. Mild mitral regurgitation. Tricuspid Valve TV structure is normal. Mild tricuspid regurgitation. Estimated peak systolic PA pressure is 25-30 mmHg . Pulmonic Valve Normal PV structure appears normal by available views. A trace of pulmonary regurgitation. Aorta Aortic root size (SInus of Valsalva diameter) is normal . Pericardium No pericardial effusion is visualized. IVC/SVC/PA/PV/Pleural The estimated RA pressure by IVC dynamics 0-5mmHg . Chambers/Structures Left Atrium LA Dimension: 3.79 cm LA Area: 28.21 cm^2 LA Volume: 107 ml LA Vol. Index: 65 ml/m^2 Left Ventricle LVIDd: 4.41 cm LVIDs: 3.03 cm LV Septum Diastolic: 1.06 cm LV PW Diastolic: 1.01 cm LV FS: 31.3 % LVOT Diameter: 2.21 cm Aorta Ao Root S of Sherlyn.: 3.38 cm Doppler/Quantitative Measurements Aortic Valve Peak Velocity: 1.49 m/s Mean Velocity: 1.01 m/s Peak Gradient: 8.84 mmHg Mean Gradient: 4.81 mmHg AV Area (continuity): 2.64 cm^2 AV VTI: 31.54 cm AV DVI: 0.69 LVOT Peak Velocity: 0.85 m/s Peak Gradient: 2.92 mmHg Mean Velocity: 0.61 m/s Mean Gradient: 1.65 mmHg LVOT Diameter: 2.21 cm LVOT VTI: 21.74 cm LVOT Area: 3.84 cm^2 LVOT SV:83.35 ml LVOT CO: 5.33 l/min LVOT CI: 3.25 l/min/m^2 Tricuspid Valve TR Velocity: 2.44 m/s TR Gradient: 23.81 mmHg Performing Organization Address City/State/Zipcode Phone Number [facility] CBC with platelet count + automated diff (06/30/2018 5:01 AM GLUE CLAMP OPERATOR)Only the most recent of4 resultswithin the time period is included. WBC 5.3 3.5 - 10.5 K/L [facility] RBC 3.16 (L) 4.63 - 6.08 M/L [facility] Hemoglobin 10.0 (L) 13.7 - 17.5 GM/DL [facility] Hematocrit 31.4 (L) 40.1 - 51.0 % [facility] MCV 99.4 (H) 79.0 - 92.2 fL [facility] MCH 31.6 25.7 - 32.2 pg [facility] MCHC 31.8 (L) 32.3 - 36.5 GM/DL [facility] RDW 12.6 11.6 - 14.4 % [facility] Platelets 148 (L) 150 - 450 K/CU MM [facility] MPV 9.8 9.4 - 12.4 fL [facility] nRBC 0 0 - 0 /100 WBC [facility] % Neutros 50 % [facility] % Lymphs 34 % [facility] % Monos 12 % [facility] % Eos 4 % [facility] % Baso 1 % [facility] # Neutros 2.60 1.78 - 5.38 K/L [facility] # Lymphs 1.76 1.32 - 3.57 K/L [facility] # Monos 0.65 0.30 - 0.82 K/L [facility] # Eos 0.20 0.04 - 0.54 K/L [facility] # Baso 0.03 0.01 - 0.08 K/L [facility] Immature Granulocytes-Relative 0 0 - 1 % [facility] Specimen Blood - Arm, Left Performing Organization Address City/State/Zipcode Phone Number [facility] [address] [place] [address] [phone] CENTER Basic metabolic panel (06/30/2018 5:01 AM GLUE CLAMP OPERATOR)Only the most recent of4 resultswithin the time period is included. Sodium 138 136 - 145 meq/L [facility] Potassium 4.2 3.5 - 5.1 meq/L [facility] Chloride 107 98 - 107 meq/L [facility] CO2 25 22 - 29 meq/L [facility] BUN 9 7 - 21 mg/dL [facility] Creatinine 0.95 0.57 - 1.25 mg/dL [facility] Glucose 94 70 - 105 mg/dL [facility] Calcium 8.6 8.4 - 10.2 mg/dL [facility] EGFR 76Comment: ESTIMATED GFR IS mL/min/1.73 sq m [facility] NOT ACCURATE [facility] CLEARANCE IN PREDICTING GLOMERULAR FILTRATION RATE. ESTIMATED GFR IS NOT APPLICABLE FOR DIALYSIS PATIENTS. Specimen Blood - Arm, Left Performing Organization Address City/State/Zipcode Phone Number [facility] [address] [place] [address] [phone] CENTER Carotid doppler bilateral (06/29/2018 1:50 PM GLUE CLAMP OPERATOR) Ejection Fraction [facility] Impressions Performed At Right Impression [facility] 1. There is <50% diameter reduction (approximately 47% by 2-D measurement) in the internal carotid artery with a peak velocity of 62/21 cm/sec and heterogeneous shadowing plaque. 2. There is non-occluding plaque in the external carotid artery. 3. There is non-occluding plaque in the common carotid artery. 4. The vertebral artery flow is antegrade and normal. 5. The subclavian artery is within normal limits where visualized. Left Impression 1. There is <50% diameter reduction (approximately 45% by 2-D measurement) in the internal carotid artery with a peak velocity of 66/16 cm/sec and heterogeneous shadowing plaque. 2. There is non-occluding plaque in the external carotid artery. 3. There is non-occluding plaque in the common carotid artery. 4. The vertebral artery flow is antegrade and normal. 5. The subclavian artery is within normal limits where visualized. Conclusions Summary Carotid duplex scanning and color flow imaging were performed bilaterally. The arteries were adequately visualized. The bilateral internal carotid arteries had <50% hemodynamically insignificant stenosis (approximately 47% by 2-D measurement on the right, approximately 45% by 2-D measurement on the left) with heterogeneous/shadowing plaque. The vertebral artery flow was antegrade and normal bilaterally. Signature Velocities are measured in cm/s ; Diameters are measured in cm Carotid Right Measurements + +----+----+-----+ +---- + + !Location !PSV !EDV !Angle!%Stenosis 2D!%Stenosis Doppler!Tortuosity ! + +----+----+-----+ +---- + + !Prox CCA !86.8!14.7!60 !! ! ! + +----+----+-----+ +---- + + !Dist CCA !76.2!16.4!60 !! ! ! + +----+----+-----+ +---- + + !Prox ICA !62.1!21.1!60 !47% !<50% ! ! + +----+----+-----+ +---- + + !Dist ICA !76.8!22.3!60 !! ! ! + +----+----+-----+ +---- + + !Prox ECA !158 !21!60 !! ! ! + +----+----+-----+ +---- + + !Vertebral!39!7.86!60 !! ! ! + +----+----+-----+ +---- + + !Prox Subclavian!146 !!60 !! ! ! + +----+----+-----+ +---- + + - Additional Measurements:ICAPSV/CCAPSV 1.01.ICAEDV/CCAEDV 1.52. Carotid Left Measurements + +----+----+-----+ +---- + + !Location !PSV !EDV !Angle!%Stenosis 2D!%Stenosis Doppler!Tortuosity ! + +----+----+-----+ +---- + + !Prox CCA !68.4!24.4!60 !! ! ! + +----+----+-----+ +---- + + !Dist CCA !95!23!60 !! ! ! + +----+----+-----+ +---- + + !Prox ICA !66!16.5!60 !45% !<50% ! ! + +----+----+-----+ +---- + + !Dist ICA !34.6!11.4!0!! ! ! + +----+----+-----+ +---- + + !Prox ECA !82.5!8.64!60 !! ! ! + +----+----+-----+ +---- + + !Vertebral!78!25.2!60 !! ! ! + +----+----+-----+ +---- + + !Prox Subclavian!126 !!60 !! ! ! + +----+----+-----+ +---- + + - Additional Measurements:ICAPSV/CCAPSV 0.69.ICAEDV/CCAEDV 0.68. Narrative Performed At LAB - Carotid Duplex Study [facility] Demographics Patient NameCARINA LOUISDate of Study 06/29/2018 78 Visit [id number] Male of 1940 [id number] Physician Examination Supervisor Uziel Vogel RVT Physician Procedure Type of Study: Cerebral: Carotid, CAROTID DOPPLER, BILATERAL. Indications for Study:Right Carotid Bruit. Patient Status:Routine. Study Location:Portable. Technical Quality:Adequate visualization. Procedure Note Interface, External Ris In - 06/29/2018 10:14 PM [facility] LAB - Carotid Duplex Study Demographics Patient Name CARINA LOUIS Date of Study 06/29/2018 Age 78 Visit Number [id number] Gender Male Accession Number [id number] Date of 1940 [facility] Room Number 2255 Physician Examination Supervisor Uziel J. Nicoli Interpreting Keturah Jaspreet, RVT Physician MD Procedure Type of Study: Cerebral: Carotid, CAROTID DOPPLER, BILATERAL. Indications for Study:Right Carotid Bruit. Patient Status:Routine. Study Location:Portable. Technical Quality:Adequate visualization. Impressions Right Impression 1. There is <50% diameter reduction (approximately 47% by 2-D measurement) in the internal carotid artery with a peak velocity of 62/21 cm/sec and heterogeneous shadowing plaque. 2. There is non-occluding plaque in the external carotid artery. 3. There is non-occluding plaque in the common carotid artery. 4. The vertebral artery flow is antegrade and normal. 5. The subclavian artery is within normal limits where visualized. Left Impression 1. There is <50% diameter reduction (approximately 45% by 2-D measurement) in the internal carotid artery with a peak velocity of 66/16 cm/sec and heterogeneous shadowing plaque. 2. There is non-occluding plaque in the external carotid artery. 3. There is non-occluding plaque in the common carotid artery. 4. The vertebral artery flow is antegrade and normal. 5. The subclavian artery is within normal limits where visualized. Conclusions Summary Carotid duplex scanning and color flow imaging were performed bilaterally. The arteries were adequately visualized. The bilateral internal carotid arteries had <50% hemodynamically insignificant stenosis (approximately 47% by 2-D measurement on the right, approximately 45% by 2-D measurement on the left) with heterogeneous/shadowing plaque. The vertebral artery flow was antegrade and normal bilaterally. Signature Velocities are measured in cm/s ; Diameters are measured in cm Carotid Right Measurements + +----+----+-----+ + + + !Location !PSV !EDV !Angle!%Stenosis 2D!%Stenosis Doppler!Tortuosity ! + +----+----+-----+ + + + !Prox CCA !86.8!14.7!60 ! ! ! ! + +----+----+-----+ + + + !Dist CCA !76.2!16.4!60 ! ! ! ! + +----+----+-----+ + + + !Prox ICA !62.1!21.1!60 !47% !<50% ! ! + +----+----+-----+ + + + !Dist ICA !76.8!22.3!60 ! ! ! ! + +----+----+-----+ + + + !Prox ECA !158 !21 !60 ! ! ! ! + +----+----+-----+ + + + !Vertebral !39 !7.86!60 ! ! ! ! + +----+----+-----+ + + + !Prox Subclavian!146 ! !60 ! ! ! ! + +----+----+-----+ + + + - Additional Measurements:ICAPSV/CCAPSV 1.01.ICAEDV/CCAEDV 1.52. Carotid Left Measurements + +----+----+-----+ + + + !Location !PSV !EDV !Angle!%Stenosis 2D!%Stenosis Doppler!Tortuosity ! + +----+----+-----+ + + + !Prox CCA !68.4!24.4!60 ! ! ! ! + +----+----+-----+ + + + !Dist CCA !95 !23 !60 ! ! ! ! + +----+----+-----+ + + + !Prox ICA !66 !16.5!60 !45% !<50% ! ! + +----+----+-----+ + + + !Dist ICA !34.6!11.4!0 ! ! ! ! + +----+----+-----+ + + + !Prox ECA !82.5!8.64!60 ! ! ! ! + +----+----+-----+ + + + !Vertebral !78 !25.2!60 ! ! ! ! + +----+----+-----+ + + + !Prox Subclavian!126 ! !60 ! ! ! ! + +----+----+-----+ + + + - Additional Measurements:ICAPSV/CCAPSV 0.69.ICAEDV/CCAEDV 0.68. Performing Organization Address City/State/Zipcode Phone Number [facility] US abdomen limited (06/29/2018 12:00 AM GLUE CLAMP OPERATOR) Narrative Performed At FINAL REPORT [facility] This examination was made available for my dictation on 07/01/2018 at 11:24 AM. TECHNIQUE: Grayscale ultrasound of the right abdomen. INDICATION: pain. COMPARISON: None. FINDINGS: MIDLINE VASCULATURE: The visualized inferior vena cava is patent. Portal vein is patent. The maximum visualized aortic diameter is 2.2 cm. LIVER: Smooth liver contour. No focal lesions. The main portal vein measures 1.1 cm. BILIARY: Gallbladder: There is a conglomerate of echogenic material which appears in different positions on supine and left lateral decubitus films. However, there is one focus which did not between supine and left lateral decubitus films which measures up to 5 mm. These do not shadow but are most likely nonshadowing stones. Common bile duct measures 0.3 cm, within normal limits. No intrahepatic biliary ductal dilatation. PANCREAS: Incompletely visualized due to overlying bowel gas. The partially visualized pancreatic neck and body are normal. PERITONEUM: No free fluid. RIGHT KIDNEY: Normal in size. No hydronephrosis. No sonographically evident solid mass lesion. IMPRESSION: 1.Cholelithiasis without secondary signs of acute cholecystitis. 2.There is one possible polyp in the gallbladder which measures up to 5 mm. A follow-up ultrasound is recommended in six months to document stability. Signed: Shaheed Benjamin MD Report Verified Date/Time:07/01/2018 11:30:04 Reading Location: [address] Ultrasound Reading Room Procedure Note Interface, External Ris In - 07/01/2018 11:32 AM GLUE CLAMP OPERATOR FINAL REPORT This examination was made available for my dictation on 07/01/2018 at 11:24 AM. TECHNIQUE: Grayscale ultrasound of the right abdomen. INDICATION: pain. COMPARISON: None. FINDINGS: MIDLINE VASCULATURE: The visualized inferior vena cava is patent. Portal vein is patent. The maximum visualized aortic diameter is 2.2 cm. LIVER: Smooth liver contour. No focal lesions. The main portal vein measures 1.1 cm. BILIARY: Gallbladder: There is a conglomerate of echogenic material which appears in different positions on supine and left lateral decubitus films. However, there is one focus which did not between supine and left lateral decubitus films which measures up to 5 mm. These do not shadow but are most likely nonshadowing stones. Common bile duct measures 0.3 cm, within normal limits. No intrahepatic biliary ductal dilatation. PANCREAS: Incompletely visualized due to overlying bowel gas. The partially visualized pancreatic neck and body are normal. PERITONEUM: No free fluid. RIGHT KIDNEY: Normal in size. No hydronephrosis. No sonographically evident solid mass lesion. IMPRESSION: 1.Cholelithiasis without secondary signs of acute cholecystitis. 2.There is one possible polyp in the gallbladder which measures up to 5 mm. A follow-up ultrasound is recommended in six months to document stability. Signed: Shaheed Benjamin MD Report Verified Date/Time: 07/01/2018 11:30:04 Reading Location: [facility] P006 Ultrasound Reading Room Performing Organization Address City/State/Zipcode Phone Number [facility] ECG 12 lead (06/28/2018 10:01 AM GLUE CLAMP OPERATOR)Only the most recent of2 resultswithin the time period is included. Narrative Performed At Ventricular Rate 74 BPM GE MUSE Atrial Rate 74 BPM P-R Interval 136 ms QRS Duration 106 ms Q-T Interval 422 ms QTC Calculation(Bazett) 468 ms P [place] 40 degrees R [place] -5 degrees T [place] 45 degrees Normal sinus rhythm Normal ECG Confirmed by MD DOWNING MAJID ([id number]) on 06/28/2018 3:02:24 PM Procedure Note Interface, External Ris In - 06/28/2018 3:02 PM GLUE CLAMP OPERATOR Ventricular Rate 74 BPM Atrial Rate 74 BPM P-R Interval 136 ms QRS Duration 106 ms Q-T Interval 422 ms QTC Calculation(Bazett) 468 ms P [place] 40 degrees R [place] -5 degrees T [place] 45 degrees Normal sinus rhythm Normal ECG Confirmed by MD DOWNING MAJID ([id number]) on 06/28/2018 3:02:24 PM Performing Organization Address City/State/Zipcode Phone Number [place] MUSE Blood Culture - Routine (Left Venipuncture) (06/28/2018 5:17 AM GLUE CLAMP OPERATOR)Only the most recent of2 resultswithin the time period is included. Result No growth in 5 days [facility] Specimen Blood - Arm, Left Performing Organization Address City/[facility] Phone Number [place] [phone] [place] [address] brain without IV contrast (06/27/2018 11:35 PM GLUE CLAMP OPERATOR) Narrative Performed At FINAL REPORT [facility] CT, BRAIN, WITHOUT CONTRAST CLINICAL INDICATION:Syncope/fainting COMPARISON: None TECHNIQUE:Noncontrast axial CT imaging of the brain and skull. DOSE REDUCTION: Dose modulation, iterative reconstruction, and/or weight-based adjustment of the mA/kV was utilized to reduce the radiation dose to as low as reasonably achievable. FINDINGS: No intracranial hemorrhage, midline shift or mass effect. Midline structures are normally developed. Mild chronic microvascular ischemic changes of the periventricular and subcortical white matter are present. Incidental note is made of physiologic mineralization of the basal ganglia. Partially empty sella, which may represent a normal anatomic variant this age group. Atherosclerotic calcification of the intracranial internal carotid arteries.. No hydrocephalus. Orbits are within normal limits. No obstructive paranasal sinus disease. IMPRESSION: No acute intracranial findings If there is persistent clinical concern for intracranial pathology, MR examination is recommended for further characterization. Signed: Nick Gutierrez MD Report Verified Date/Time:06/27/2018 23:42:40 Reading Location: [facility] C013V Neuro Reading Room Procedure Note Interface, External Ris In - 06/27/2018 11:44 PM GLUE CLAMP OPERATOR FINAL REPORT CT, BRAIN, WITHOUT CONTRAST CLINICAL INDICATION: Syncope/fainting COMPARISON: None TECHNIQUE: Noncontrast axial CT imaging of the brain and skull. DOSE REDUCTION: Dose modulation, iterative reconstruction, and/or weight-based adjustment of the mA/kV was utilized to reduce the radiation dose to as low as reasonably achievable. FINDINGS: No intracranial hemorrhage, midline shift or mass effect. Midline structures are normally developed. Mild chronic microvascular ischemic changes of the periventricular and subcortical white matter are present. Incidental note is made of physiologic mineralization of the basal ganglia. Partially empty sella, which may represent a normal anatomic variant this age group. Atherosclerotic calcification of the intracranial internal carotid arteries.. No hydrocephalus. Orbits are within normal limits. No obstructive paranasal sinus disease. IMPRESSION: No acute intracranial findings If there is persistent clinical concern for intracranial pathology, MR examination is recommended for further characterization. Signed: Nick Gutierrez MD Report Verified Date/Time: 06/27/2018 23:42:40 Reading Location: [facility] B1 C013V Neuro Reading Room Performing Organization Address City/State/Zipcode Phone Number [facility] Urinalysis w/Microscopic + Reflex to Culture (06/27/2018 9:28 PM GLUE CLAMP OPERATOR) Color, UA Colorless [facility] Clarity, UA Clear [facility] Specific [place], UA 1.001 1.001 - 1.035 [facility] pH, UA 7.5 5.0 - 8.0 [facility] Protein, UA Negative Negative [facility] Glucose, UA Negative Negative [facility] Ketones, UA Negative Negative [facility] Bilirubin, UA Negative Negative [facility] Blood, UA Trace (A) Negative [facility] Nitrite, UA Negative Negative [facility] Leukocytes, UA Negative Negative [facility] Urobilinogen, UA 0.2 0.2 - 1.0 mg/dL [facility] RBC, UA 1 /HPF [facility] WBC, UA <1 /HPF [facility] Specimen Source [facility] Specimen Urine - Urine, Voided Performing Organization Address City/[facility]/Zipcode Phone Number [facility] [address] [place] [address] CENTER XR chest 1 view portable / bedside (06/27/2018 8:41 PM GLUE CLAMP OPERATOR) Narrative Performed At FINAL REPORT [facility] INDICATION: LOSS OF CONSCIOUSNESS COMPARISON: None TECHNIQUE: Single frontal view of the chest. FINDINGS: Lungs and pleura: Clear lungs. No effusion. Heart and mediastinum: Normal heart size. Unremarkable mediastinal contours. Osseous structures: No acute abnormality. Other: None. IMPRESSION: No acute intrathoracic abnormality. Signed: Nick Gutierrez MD Report Verified Date/Time:06/27/2018 21:14:39 Reading Location: [address] Neuro Reading Room Procedure Note Interface, External Ris In - 06/27/2018 9:16 PM GLUE CLAMP OPERATOR FINAL REPORT INDICATION: LOSS OF CONSCIOUSNESS COMPARISON: None TECHNIQUE: Single frontal view of the chest. FINDINGS: Lungs and pleura: Clear lungs. No effusion. Heart and mediastinum: Normal heart size. Unremarkable mediastinal contours. Osseous structures: No acute abnormality. Other: None. IMPRESSION: No acute intrathoracic abnormality. Signed: Nick Gutierrez MD Report Verified Date/Time: 06/27/2018 21:14:39 Reading Location: [facility] C0[facility] Neuro Reading Room Performing Organization Address City/State/Zipcode Phone Number [facility] Troponin I (06/27/2018 6:55 PM GLUE CLAMP OPERATOR) Troponin I <0.01 0.00 - 0.03 ng/mL [facility] Specimen Blood - Arm, Left Narrative Performed At Troponin I (TnI) levels must be interpreted [facility] in the context of the presenting symptoms and the clinical findings. Elevated TnI levels indicate myocardial damage, but are not specific for ischemic heart disease. Elevated TnI levels are seen in patients with other cardiac conditions (including myocarditis and congestive heart failure), and slight TnI elevations occur in patients with other conditions, including sepsis, renal failure, acidosis, acute neurological disease, and persistent tachyarrhythmia. Performing Organization Address City/[facility] Phone Number [address] [address] CENTER Phosphorus (06/27/2018 6:55 PM GLUE CLAMP OPERATOR) Phosphorus 2.9 2.3 - 4.7 mg/dL [facility] Specimen Blood - Arm, Left Performing Organization Address [facility] Phone Number [address] [address] [phone] CENTER B-type Natriuretic Factor (BNP) (06/27/2018 6:55 PM GLUE CLAMP OPERATOR) BNP 94 0 - 100 pg/mL [facility] Specimen Blood - Arm, Left Performing Organization Address [facility] Phone Number [address] [address] [phone] CENTER Hepatic function panel (06/27/2018 6:55 PM GLUE CLAMP OPERATOR) Protein, Total 6.0 6.0 - 8.3 gm/dL [facility] Albumin 3.7 3.5 - 5.0 g/dL [facility] Total Bilirubin 0.5 0.2 - 1.2 mg/dL [facility] Bilirubin, Direct 0.3 0.1 - 0.5 mg/dL [facility] Alkaline Phosphatase 78 40 - 150 U/L [facility] AST 32 5 - 34 U/L [facility] ALT 6 6 - 55 U/L [facility] Specimen Blood - Arm, Left Performing Organization Address City/State/Zipcode Phone Number [facility] [address] [place] [address] CENTER ECG/EKG Interpretation (06/27/2018 6:41 PM GLUE CLAMP OPERATOR) Narrative Performed At Radha Corado MD 06/30/20186:52 AM ECG/EKG Interpretation Date/Time: 06/27/2018 8:06 PM Performed by: Radha Corado MD Authorized by: Radha Corado MD This ECG was not compared with previous ECG(s).The ECG is interpreted as sinus bradycardia. Rate is bradycardic. ST segments abnormal. T waves abnormal. [place] is normal. Clinical Impression: non-specific ECG after 07/13/2017 Insurance Payer Benefit Plan / Group Subscriber ID Type Phone Address [employer] - MEDICARE AARP/MEDICARE COMPLETE xxxxxxxxx [facility]GD CARE Advance Directives Patient has advance care planning documents, and code status on file. For more information, please contact:[facility] [place] [address] [phone] Code Status Date Activated Date Inactivated Comments Full Code 06/27/2018 10:12 PM 07/01/2018 6:29 PM This code status was determined by: Patient
--- OUTSIDE RECORDS SUMMARY | 2018-07-14 09:07 | XMS REPORT ---
:1940 [facility] Address [address] [place] [id number] Care Team Providers Name Role Phone GHULAM ALANIS Unavailable Unavailable Problems This patient has no known problems. Allergies, Adverse Reactions, Alerts This patient has no known allergies or adverse reactions. Medications This patient has no known medications. Results Test Description Test Time Test Comments Text Results Atomic Results Result Comments BLOOD CULTURE 2018-07-03 11:02:00 Test Item Value Reference Range Comments CULTURE (BEAKER) (test mczo=7324) No growth in 5 days BLOOD [id number] 11:02:00 Test Item Value Reference Range Comments CULTURE (BEAKER) (test yjln=9997) No growth in 5 days COMPREHENSIVE METABOLIC [id number] 13:41:00 Test Item Value Reference Range Comments TOTAL PROTEIN (BEAKER) 6.3 gm/dL 6.0-8.3 (test qzdi=381) ALBUMIN (BEAKER) (test 3.7 g/dL 3.5-5.0 rmgh=7253) ALKALINE PHOSPHATASE 86 U/L 40-150 (BEAKER) (test nfsd=869) BILIRUBIN TOTAL (BEAKER) 0.4 mg/dL 0.2-1.2 (test mmzu=380) SODIUM (BEAKER) (test 139 meq/L 136-145 tsja=613) POTASSIUM (BEAKER) (test 4.1 meq/L 3.5-5.1 stiz=520) CHLORIDE (BEAKER) (test 104 meq/L 98-107 xevz=751) CO2 (BEAKER) (test 27 meq/L 22-29 jyid=888) BLOOD UREA NITROGEN 9 mg/dL 7-21 (BEAKER) (test fzyc=392) CREATININE (BEAKER) (test 1.06 mg/dL 0.57-1.25 xjcc=864) GLUCOSE RANDOM (BEAKER) 104 mg/dL 70-105 (test arox=674) CALCIUM (BEAKER) (test 9.1 mg/dL 8.4-10.2 ysid=747) AST (SGOT) (BEAKER) (test 19 U/L 5-34 obdm=386) ALT (SGPT) (BEAKER) (test < U/L 6-55 rvzr=699) EGFR (BEAKER) (test 67 mL/min/1.73 sq m ESTIMATED GFR IS NOT dgts=7709) ACCURATE CREATININE CLEARANCE IN PREDICTING GLOMERULAR FILTRATION RATE. ESTIMATED GFR IS NOT APPLICABLE FOR DIALYSIS PATIENTS. [id number] 13:24:00 Test Item Value Reference Range Comments MAGNESIUM (BEAKER) (test zbfz=158) 1.9 mg/dL 1.6-2.6 [id number] 13:24:00 Test Item Value Reference Range Comments LIPASE (BEAKER) (test xzzw=835) 521 U/L 8-78 U/S, ABDOMINAL, [id number] 11:30:00Abdomen limited area? Add comment if clarification is needed.->Gall BladderReason for exam:->painShould this be performed at the bedside?->YesFINAL REPORT This examination was made available for my dictation on 07/01/2018at 11:24 AM. TECHNIQUE: Grayscale ultrasound of the right abdomen. INDICATION: pain. COMPARISON: None. FINDINGS: MIDLINE VASCULATURE: The visualized inferior vena cava is patent. Portal vein is patent. The maximum visualized aortic diameter is 2.2 cm. LIVER: Smooth liver contour. No focal lesions. The main portal vein measures 1.1 cm. BILIARY:Gallbladder: There is a conglomerate of echogenic material which appears in different positions on supine and left lateral decubitus films. However, there is one focus which did not between supine and left lateral decubitus films which measures up to 5 mm. These do not shadow but are most likely nonshadowing stones.Common bile duct measures 0.3 cm, within normal [...] months to document stability. Signed: Shaheed Benjamin Verified Date/Time: 07/01/2018 11:30:04 Reading Location: [address] Ultrasound Reading Room [id number] 06:07: 00 Test Item Value Reference Range Comments MAGNESIUM (BEAKER) (test sbem=805) 2.1 mg/dL 1.6-2.6 BASIC METABOLIC [id number] 06:07:00 Test Item Value Reference Range Comments SODIUM (BEAKER) (test 138 meq/L 136-145 fzyg=850) POTASSIUM (BEAKER) (test 4.2 meq/L 3.5-5.1 tfuk=349) CHLORIDE (BEAKER) (test 107 meq/L 98-107 cbfl=682) CO2 (BEAKER) (test 25 meq/L 22-29 bxut=369) BLOOD UREA NITROGEN 9 mg/dL 7-21 (BEAKER) (test dhrz=313) CREATININE (BEAKER) (test 0.95 mg/dL 0.57-1.25 eoox=381) GLUCOSE RANDOM (BEAKER) 94 mg/dL 70-105 (test fgoe=437) CALCIUM (BEAKER) (test 8.6 mg/dL 8.4-10.2 uzpi=050) EGFR (BEAKER) (test 76 mL/min/1.73 sq m ESTIMATED GFR IS NOT fxko=6544) ACCURATE CREATININE CLEARANCE IN PREDICTING GLOMERULAR FILTRATION RATE. ESTIMATED GFR IS NOT APPLICABLE FOR DIALYSIS PATIENTS. CBC W/PLT COUNT & AUTO [id number] 06:04:00 Test Item Value Reference Range Comments WHITE BLOOD CELL COUNT (BEAKER) (test zgsd=078) 5.3 K/ L 3.5-10.5 RED BLOOD CELL COUNT (BEAKER) (test xliq=926) 3.16 M/ L 4.63-6.08 HEMOGLOBIN (BEAKER) (test rhjg=590) 10.0 GM/DL 13.7-17.5 HEMATOCRIT (BEAKER) (test xgoh=937) 31.4 % 40.1-51.0 MEAN CORPUSCULAR VOLUME (BEAKER) (test fwdm=454) 99.4 fL 79.0-92.2 MEAN CORPUSCULAR HEMOGLOBIN (BEAKER) (test 31.6 pg 25.7-32.2 wvqz=633) MEAN CORPUSCULAR HEMOGLOBIN CONC (BEAKER) (test 31.8 GM/DL 32.3-36.5 kevx=228) RED CELL DISTRIBUTION WIDTH (BEAKER) (test 12.6 % 11.6-14.4 eelr=566) PLATELET COUNT (BEAKER) (test idmw=105) 148 K/CU MM 150-450 MEAN PLATELET VOLUME (BEAKER) (test pprg=423) 9.8 fL 9.4-12.4 NUCLEATED RED BLOOD CELLS (BEAKER) (test 0 /100 WBC 0-0 xyqf=280) NEUTROPHILS RELATIVE PERCENT (BEAKER) (test 50 % dral=969) LYMPHOCYTES RELATIVE PERCENT (BEAKER) (test 34 % lvqk=639) MONOCYTES RELATIVE PERCENT (BEAKER) (test 12 % ised=937) EOSINOPHILS RELATIVE PERCENT (BEAKER) (test 4 % ajtm=538) BASOPHILS RELATIVE PERCENT (BEAKER) (test 1 % jvqw=795) NEUTROPHILS ABSOLUTE COUNT (BEAKER) (test 2.60 K/ L 1.78-5.38 opoz=459) LYMPHOCYTES ABSOLUTE COUNT (BEAKER) (test 1.76 K/ L 1.32-3.57 brcc=526) MONOCYTES ABSOLUTE COUNT (BEAKER) (test 0.65 K/ L 0.30-0.82 ochx=968) EOSINOPHILS ABSOLUTE COUNT (BEAKER) (test 0.20 K/ L 0.04-0.54 jpxq=730) BASOPHILS ABSOLUTE COUNT (BEAKER) (test 0.03 K/ L 0.01-0.08 znhb=841) IMMATURE GRANULOCYTES-RELATIVE PERCENT (BEAKER) 0 % 0-1 (test uycp=0389) [id number] 10:30:00 Test Item Value Reference Range Comments MAGNESIUM (BEAKER) (test lfac=701) 1.9 mg/dL 1.6-2.6 CBC W/PLT COUNT & AUTO [id number] 07:07:00 Test Item Value Reference Range Comments WHITE BLOOD CELL COUNT (BEAKER) (test kjhg=493) 4.4 K/ L 3.5-10.5 RED BLOOD CELL COUNT (BEAKER) (test emjq=068) 3.32 M/ L 4.63-6.08 HEMOGLOBIN (BEAKER) (test fbtf=913) 10.6 GM/DL 13.7-17.5 HEMATOCRIT (BEAKER) (test kyoj=820) 32.9 % 40.1-51.0 MEAN CORPUSCULAR VOLUME (BEAKER) (test smsh=182) 99.1 fL 79.0-92.2 MEAN CORPUSCULAR HEMOGLOBIN (BEAKER) (test 31.9 pg 25.7-32.2 arft=156) MEAN CORPUSCULAR HEMOGLOBIN CONC (BEAKER) (test 32.2 GM/DL 32.3-36.5 sqlp=499) RED CELL DISTRIBUTION WIDTH (BEAKER) (test 12.7 % 11.6-14.4 dgwz=386) PLATELET COUNT (BEAKER) (test kjar=943) 145 K/CU MM 150-450 MEAN PLATELET VOLUME (BEAKER) (test ymxz=796) 10.1 fL 9.4-12.4 NUCLEATED RED BLOOD CELLS (BEAKER) (test 0 /100 WBC 0-0 incn=410) NEUTROPHILS RELATIVE PERCENT (BEAKER) (test 40 % rvig=105) LYMPHOCYTES RELATIVE PERCENT (BEAKER) (test 44 % nrbv=328) MONOCYTES RELATIVE PERCENT (BEAKER) (test 12 % gfyg=180) EOSINOPHILS RELATIVE PERCENT (BEAKER) (test 4 % cqaf=274) BASOPHILS RELATIVE PERCENT (BEAKER) (test 1 % jzcp=485) NEUTROPHILS ABSOLUTE COUNT (BEAKER) (test 1.74 K/ L 1.78-5.38 sgpc=855) LYMPHOCYTES ABSOLUTE COUNT (BEAKER) (test 1.90 K/ L 1.32-3.57 dhmo=651) MONOCYTES ABSOLUTE COUNT (BEAKER) (test 0.54 K/ L 0.30-0.82 yqsu=711) EOSINOPHILS ABSOLUTE COUNT (BEAKER) (test 0.16 K/ L 0.04-0.54 usrx=343) BASOPHILS ABSOLUTE COUNT (BEAKER) (test 0.02 K/ L 0.01-0.08 hxcy=793) IMMATURE GRANULOCYTES-RELATIVE PERCENT (BEAKER) 0 % 0-1 (test smrn=4199) BASIC METABOLIC [id number] 06:31:00 Test Item Value Reference Range Comments SODIUM (BEAKER) (test 138 meq/L 136-145 csyt=600) POTASSIUM (BEAKER) (test 3.7 meq/L 3.5-5.1 fwmg=540) CHLORIDE (BEAKER) (test 107 meq/L 98-107 egss=985) CO2 (BEAKER) (test 25 meq/L 22-29 arbg=511) BLOOD UREA NITROGEN 9 mg/dL 7-21 (BEAKER) (test rnet=453) CREATININE (BEAKER) (test 1.01 mg/dL 0.57-1.25 ergz=793) GLUCOSE RANDOM (BEAKER) 81 mg/dL 70-105 (test zhuw=977) CALCIUM (BEAKER) (test 8.7 mg/dL 8.4-10.2 fisf=709) EGFR (BEAKER) (test 71 mL/min/1.73 sq m ESTIMATED GFR IS NOT tbly=5371) ACCURATE CREATININE CLEARANCE IN PREDICTING GLOMERULAR FILTRATION RATE. ESTIMATED GFR IS NOT APPLICABLE FOR DIALYSIS PATIENTS. BASIC METABOLIC [id number] 06:27:00 Test Item Value Reference Range Comments SODIUM (BEAKER) (test 139 meq/L 136-145 mmmi=407) POTASSIUM (BEAKER) (test 4.1 meq/L 3.5-5.1 ssdr=901) CHLORIDE (BEAKER) (test 106 meq/L 98-107 pasu=510) CO2 (BEAKER) (test 26 meq/L 22-29 wznp=845) BLOOD UREA NITROGEN 10 mg/dL 7-21 (BEAKER) (test lvuu=562) CREATININE (BEAKER) (test 0.98 mg/dL 0.57-1.25 vvkz=913) GLUCOSE RANDOM (BEAKER) 78 mg/dL 70-105 (test cxke=495) CALCIUM (BEAKER) (test 9.5 mg/dL 8.4-10.2 vawp=961) EGFR (BEAKER) (test mL/min/1.73 sq m INSUFFICIENT CLINICAL DATA ufdi=9851) TO CALCULATE ESTIMATED GFR. CBC W/PLT COUNT & AUTO [id number] 05:45:00 Test Item Value Reference Range Comments WHITE BLOOD CELL COUNT (BEAKER) (test pztd=009) 4.5 K/ L 3.5-10.5 RED BLOOD CELL COUNT (BEAKER) (test tccw=015) 3.71 M/ L 4.63-6.08 HEMOGLOBIN (BEAKER) (test kcqv=743) 11.8 GM/DL 13.7-17.5 HEMATOCRIT (BEAKER) (test xlrn=409) 36.0 % 40.1-51.0 MEAN CORPUSCULAR VOLUME (BEAKER) (test yjzp=094) 97.0 fL 79.0-92.2 MEAN CORPUSCULAR HEMOGLOBIN (BEAKER) (test 31.8 pg 25.7-32.2 gdfa=937) MEAN CORPUSCULAR HEMOGLOBIN CONC (BEAKER) (test 32.8 GM/DL 32.3-36.5 wuyt=528) RED CELL DISTRIBUTION WIDTH (BEAKER) (test 12.6 % 11.6-14.4 lptk=934) PLATELET COUNT (BEAKER) (test agjp=083) 170 K/CU MM 150-450 MEAN PLATELET VOLUME (BEAKER) (test ktuh=364) 9.5 fL 9.4-12.4 NUCLEATED RED BLOOD CELLS (BEAKER) (test 0 /100 WBC 0-0 atmt=917) NEUTROPHILS RELATIVE PERCENT (BEAKER) (test 50 % eqhf=611) LYMPHOCYTES RELATIVE PERCENT (BEAKER) (test 37 % pzkm=510) MONOCYTES RELATIVE PERCENT (BEAKER) (test 10 % uiht=760) EOSINOPHILS RELATIVE PERCENT (BEAKER) (test 3 % mnan=190) BASOPHILS RELATIVE PERCENT (BEAKER) (test 0 % vzyj=597) NEUTROPHILS ABSOLUTE COUNT (BEAKER) (test 2.23 K/ L 1.78-5.38 dsgt=392) LYMPHOCYTES ABSOLUTE COUNT (BEAKER) (test 1.67 K/ L 1.32-3.57 erxx=317) MONOCYTES ABSOLUTE COUNT (BEAKER) (test 0.44 K/ L 0.30-0.82 yvso=733) EOSINOPHILS ABSOLUTE COUNT (BEAKER) (test 0.15 K/ L 0.04-0.54 ewri=128) BASOPHILS ABSOLUTE COUNT (BEAKER) (test 0.02 K/ L 0.01-0.08 numk=410) IMMATURE GRANULOCYTES-RELATIVE PERCENT (BEAKER) 0 % 0-1 (test pqxd=2413) CT, BRAIN, WITHOUT [id number] 23:42:00FINAL REPORT CT, BRAIN, WITHOUT CONTRAST CLINICAL INDICATION: Syncope/fainting COMPARISON: None TECHNIQUE: Noncontrast axial CT imaging of the brain and skull. DOSE REDUCTION:Dose modulation, iterative reconstruction, and/or weight- based adjustment of the mA/kV was utilized to reduce the radiation dose to as low as reasonably achievable. FINDINGS:No intracranial hemorrhage,midline shift or mass effect. Midline structures are normally developed. Mild chronic microvascular ischemic changes of the periventricular and subcortical white matter are present. Incidental note is made of physiologic mineralization of the basal ganglia. Partially empty sella, which may represent anormal anatomic variant this age group. Atherosclerotic calcification of the intracranial internal carotid arteries.. No hydrocephalus. Orbits are within normal limits. No obstructive paranasal sinus disease. IMPRESSION: No acute intracranial findings If there is persistent clinical concern for intracranial pathology, MR examination is recommended for further characterization. Signed: Christina Gutierrez MDReport Verified Date/Time: 06/27/2018 23:42:40 Reading Location: [address] Neuro Reading Room URINALYSIS W/ REFLEX URINE [id number] 21:57:00 Test Item Value Reference Range Comments COLOR (BEAKER) (test mfup=601) Colorless CLARITY (BEAKER) (test vjyq=716) Clear SPECIFIC GRAVITY UA (BEAKER) (test cwpa=950) 1.001 1.001-1.035 PH UA (BEAKER) (test foyx=470) 7.5 5.0-8.0 PROTEIN UA (BEAKER) (test tlkx=927) Negative Negative GLUCOSE UA (BEAKER) (test priw=108) Negative Negative KETONES UA (BEAKER) (test geqd=740) Negative Negative BILIRUBIN UA (BEAKER) (test pxus=960) Negative Negative BLOOD UA (BEAKER) (test jfda=509) Trace Negative NITRITE UA (BEAKER) (test gywd=717) Negative Negative LEUKOCYTE ESTERASE UA (BEAKER) (test mrxc=992) Negative Negative UROBILINOGEN UA (BEAKER) (test owsr=482) 0.2 mg/dL 0.2-1.0 RBC UA (BEAKER) (test jtxl=377) 1 /HPF WBC UA (BEAKER) (test eqia=188) < /HPF SOURCE(BEAKER) (test omkf=7890) RAD, CHEST, 1 VIEW, NON [id number] 21:14:00Reason for exam:->LOSS OF CONSCIOUSNESSShould this be performed at the bedside?->YesFINAL REPORT INDICATION: LOSS OF CONSCIOUSNESS COMPARISON: None TECHNIQUE: Single frontal view of the chest. FINDINGS: Lungs and pleura: Clear lungs. No effusion.Heart and mediastinum: Normal heart size. Unremarkable mediastinal contours.Osseous structures: No acute abnormality.Other: None. IMPRESSION: No acute intrathoracic abnormality. Signed: Christina Gutierrez MDReport Verified Date/Time: 06/27/2018 21:14:39 Reading Location: [address] Neuro Reading Room [id number] 20:36:00 Test Item Value Reference Range Comments MAGNESIUM (BEAKER) (test qodw=121) 2.0 mg/dL 1.6-2.6 [id number] 20:36:00 Test Item Value Reference Range Comments PHOSPHORUS (BEAKER) (test wlav=605) 2.9 mg/dL 2.3-4.7 TROPONIN [id number] 19:30:00 Test Item Value Reference Range Comments TROPONIN I (BEAKER) (test gjrl=538) < ng/mL 0.00-0.03 Troponin I (TnI) levels must be interpreted in the context of the presenting symptoms and the clinical findings. Elevated TnI levels indicate myocardial damage, but are not specific for ischemic heart disease. Elevated TnI levels are seen in patients with other cardiac conditions (including myocarditis and congestive heart failure), and slight TnI elevations occur in patients with other conditions, including sepsis, renal failure, acidosis, acute neurological disease, and persistent tachyarrhythmia.B-TYPE NATRIURETIC FACTOR (BNP) 19:30:00 Test Item Value Reference Range Comments B-TYPE NATRIURETIC PEPTIDE (BEAKER) (test ndpr=534) 94 pg/mL 0-100 BASIC METABOLIC [id number] 19:28:00 Test Item Value Reference Range Comments SODIUM (BEAKER) (test 138 meq/L 136-145 lamx=811) POTASSIUM (BEAKER) (test 4.0 meq/L 3.5-5.1 umsp=810) CHLORIDE (BEAKER) (test 103 meq/L 98-107 ppvm=056) CO2 (BEAKER) (test 29 meq/L 22-29 csrf=346) BLOOD UREA NITROGEN 15 mg/dL 7-21 (BEAKER) (test gibj=970) CREATININE (BEAKER) (test 1.15 mg/dL 0.57-1.25 ydks=793) GLUCOSE RANDOM (BEAKER) 117 mg/dL 70-105 (test daaw=240) CALCIUM (BEAKER) (test 9.0 mg/dL 8.4-10.2 eoun=234) EGFR (BEAKER) (test mL/min/1.73 sq m INSUFFICIENT CLINICAL DATA svdt=2780) TO CALCULATE ESTIMATED GFR. [id number] 19:24:00 Test Item Value Reference Range Comments LIPASE (BEAKER) (test usww=071) 229 U/L 8-78 HEPATIC FUNCTION [id number] 19:24:00 Test Item Value Reference Range Comments TOTAL PROTEIN (BEAKER) (test iavt=460) 6.0 gm/dL 6.0-8.3 ALBUMIN (BEAKER) (test gpwd=4958) 3.7 g/dL 3.5-5.0 BILIRUBIN TOTAL (BEAKER) (test lyso=430) 0.5 mg/dL 0.2-1.2 BILIRUBIN DIRECT (BEAKER) (test nlqu=533) 0.3 mg/dL 0.1-0.5 ALKALINE PHOSPHATASE (BEAKER) (test xsxd=993) 78 U/L 40-150 AST (SGOT) (BEAKER) (test klgm=560) 32 U/L 5-34 ALT (SGPT) (BEAKER) (test wmsx=369) 6 U/L 6-55 CBC W/PLT COUNT & AUTO [id number] 19:05:00 Test Item Value Reference Range Comments WHITE BLOOD CELL COUNT (BEAKER) (test siqa=108) 4.6 K/ L 3.5-10.5 RED BLOOD CELL COUNT (BEAKER) (test cpcj=469) 3.38 M/ L 4.63-6.08 HEMOGLOBIN (BEAKER) (test grlh=857) 10.8 GM/DL 13.7-17.5 HEMATOCRIT (BEAKER) (test xzmk=924) 33.4 % 40.1-51.0 MEAN CORPUSCULAR VOLUME (BEAKER) (test kdzh=893) 98.8 fL 79.0-92.2 MEAN CORPUSCULAR HEMOGLOBIN (BEAKER) (test 32.0 pg 25.7-32.2 uxci=217) MEAN CORPUSCULAR HEMOGLOBIN CONC (BEAKER) (test 32.3 GM/DL 32.3-36.5 gjae=938) RED CELL DISTRIBUTION WIDTH (BEAKER) (test 12.8 % 11.6-14.4 ojoz=240) PLATELET COUNT (BEAKER) (test vjzy=001) 160 K/CU MM 150-450 MEAN PLATELET VOLUME (BEAKER) (test baox=057) 9.2 fL 9.4-12.4 NUCLEATED RED BLOOD CELLS (BEAKER) (test 0 /100 WBC 0-0 tlxf=608) NEUTROPHILS RELATIVE PERCENT (BEAKER) (test 52 % txxg=086) LYMPHOCYTES RELATIVE PERCENT (BEAKER) (test 35 % rese=911) MONOCYTES RELATIVE PERCENT (BEAKER) (test 11 % efnn=881) EOSINOPHILS RELATIVE PERCENT (BEAKER) (test 3 % ikiu=295) BASOPHILS RELATIVE PERCENT (BEAKER) (test 0 % toft=822) NEUTROPHILS ABSOLUTE COUNT (BEAKER) (test 2.34 K/ L 1.78-5.38 tkml=835) LYMPHOCYTES ABSOLUTE COUNT (BEAKER) (test 1.57 K/ L 1.32-3.57 ucet=066) MONOCYTES ABSOLUTE COUNT (BEAKER) (test 0.48 K/ L 0.30-0.82 ucfe=724) EOSINOPHILS ABSOLUTE COUNT (BEAKER) (test 0.14 K/ L 0.04-0.54 zugg=303) BASOPHILS ABSOLUTE COUNT (BEAKER) (test 0.02 K/ L 0.01-0.08 cycs=112) IMMATURE GRANULOCYTES-RELATIVE PERCENT (BEAKER) 0 % 0-1 (test odqc=3690)
[2018-07-14 10:27] LABS: Absolute Monocytes 0.4 K/uL (0.1-1.3); Absolute Neutrophil 3.2 K/uL (1.8-8.0); Basophils % 0.5 % (0-1.3); Eosinophils % 2.6 % (0-4.4); Hematocrit 35.4 % (39.6-49.0); Lymphocytes % 20.3 % (15.3-44.8); MPV 7.9 fL (7.6-11.3); Monocytes % 8.9 % (3.3-12.3)
[2018-07-14 10:28] LABS: Protime INR 0.97
[2018-07-14] MEDS ORDERED: NA CHLORIDE 0.9% 1,000 ML ONE (10:37)
--- NOTE | 2018-07-14 10:38 | RAD REPORT ---
EXAM DESCRIPTION: CT - Head C Spine Cap Wo Con - 07/14/2018 10:16 am CLINICAL HISTORY: Trauma, head and neck injury. Chest, abdomen and pelvis pain. PAIN COMPARISON: Abdomen Pelvis W Contrast dated 06/24/2018; Head Brain Wo Cont dated 02/04/2018; HEAD BR AIN W O CONTRAST dated 08/24/2013 TECHNIQUE: CT head without contrast. CT cervical spine without contrast with coronal and sagittal reformatted images. CT chest, abdomen and pelvis without contrast with coronal and sagittal reformatted images of the [facility]. All CT scans are performed using dose optimization technique as appropriate and may include automated exposure control or mA/KV adjustment according to patient size. FINDINGS: CT HEAD WITHOUT CONTRAST: No intracranial hemorrhage, hydrocephalus or extra-axial fluid collection. No areas of brain edema o r midline shift. The paranasal sinuses and mastoids are clear. The calvarium is intact. CT CERVICAL SPINE WITHOUT CONTRAST: No fracture or subluxation. Moderate lower cervical degenerative changes are present. The prevertebra l soft tissues are normal in thickness. CT CHEST, ABDOMEN, PELVIS WITHOUT CONTRAST: NOTE: Lack of contrast is a significant limitation in the assessment of trauma related findings. Spec ifically, solid organ, vascular and bowel evaluation is significantly limited. 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 No evidence of intra-abdominal visceral injury, free fluid or free air is seen within the above detai led limitations. Small nonobstructing right renal calculus. No pelvic mass or hematoma seen. Multilevel degenerative changes throughout the axial skeleton. Acute fracture is not seen. IMPRESSION: Negative for acute traumatic findings within the above detailed limitations.
[2018-07-14 10:46] LABS: ALT/SGPT 11 U/L (12-78); AST/SGOT 21 U/L (15-37); Albumin 3.4 g/dL (3.4-5.0); Alkaline Phosphatase 86 U/L (45-117); BUN Blood Urea Nitrogen 14 mg/dL (7-18); Bicarbonate 29 mmol/L (21-32); Bilirubin Direct 0.1 mg/dL (0-0.2); Bilirubin Total 0.4 mg/dL (0.2-1.0); Glucose Level 109 mg/dL (74-106); Magnesium 2.4 mg/dL (1.8-2.4); NT PRO-BNP 318 pg/mL (<450); Potassium 4.2 mmol/L (3.5-5.1); Protein, Total 6.5 g/dL (6.4-8.2); Sodium Level 141 mmol/L (136-145); Troponin (Emerg Dept Use Only) < 0.02 ng/mL (0.0-0.045)
--- NOTE | 2018-07-14 11:03 | RAD REPORT ---
EXAM DESCRIPTION: RAD - Chest Single View - 07/14/2018 10:42 am CLINICAL HISTORY: COUGH Chest pain. COMPARISON: Chest Single View dated 06/24/2018; Chest Single View dated 02/04/2018; CHEST SINGLE VIEW dated 08/24/2013 FINDINGS: Portable technique limits examination quality. The lungs are grossly clear. The heart is normal in size. No displaced fractures. IMPRESSION: No acute intrathoracic process suspected.
[2018-07-14 11:55] LABS: Urine Blood NEGATIVE (NEG); Urine Glucose NEGATIVE (NEG); Urine Protein NEGATIVE (NEG); Urine pH 7.5 (5.0-7.0)
--- NOTE | 2018-07-14 12:16 | EDPHYS ---
Physician Documentation [facility] Name: Sumanth Louis Age: 78 yrs Sex: Male : 1940 Arrival Date: 07/14/2018 Time: 09:02 Bed 5 Private MD: ED Physician Wood Henry HPI: 07/14 09:53 This 78 yrs old Male presents to ER via EMS with complaints of Fall Injury. abhi 09:53 Details of fall: The patient fell from an upright position, while walking. Onset: The abhi symptoms/episode began/occurred just prior to arrival. Associated injuries: The patient sustained injury to the head. Severity of symptoms: At their worst the symptoms were mild. The patient has experienced similar episodes in the past, a few times. Historical: - Allergies: 09:07 No Known Allergies; ph - Home Meds: 10:42 carbidopa-levodopa 25-250 mg oral tab 1 tab 4 times per day [Active]; atorvastatin 20 ph mg Oral tab 1 tab once daily [Active]; donepezil 5 mg Oral tab 1 tab once daily [Active]; loratadine 10 mg oral tab 1 tab once daily [Active]; pantoprazole 40 mg oral TbEC 1 tab once daily [Active]; metoprolol tartrate 25 mg Oral tab 0.5 tab 2 times per day [Active]; aspirin 81 mg Oral TbEC 1 tab once daily [Active]; sertraline 25 mg oral tab 1 tab once daily [Active]; One-A-Day Men's Multivitamin 400-300 mcg Oral tab daily [Active]; Urinozinc Prostate Formula oral oral [Active]; - PMHx: 09:07 Anemia; Anxiety; Bilateral deafness; Bilateral degeneration of macula; CHF; chronic ph pain syndrome; Dementia; Hernia; Hypertension; LOCALIZED EDEMA; osteoarthritis; PAD; Parkinsons; Rhinitis; right inguinal hernia; Vitamin D3 deficiency; - Immunization history:: Adult Immunizations unknown. - Social history:: Smoking status: Patient/guardian denies using tobacco. - Immunization history: Last tetanus immunization: unknown. - Ebola Screening: : No symptoms or risks identified at this time. ROS: 09:55 Constitutional: Negative for fever, chills, and weight loss, Eyes: Negative for injury, abhi pain, redness, and discharge, ENT: Negative for injury, pain, and discharge, Neck: Negative for injury, pain, and swelling, Cardiovascular: Negative for chest pain, palpitations, and edema, Respiratory: Negative for shortness of breath, cough, wheezing, and pleuritic chest pain, Abdomen/GI: Negative for abdominal pain, nausea, vomiting, diarrhea, and constipation, Back: Negative for injury and pain, : Negative for injury, bleeding, discharge, and swelling, MS/Extremity: Negative for injury and deformity, Skin: Negative for injury, rash, and discoloration, Neuro: Negative for headache, weakness, numbness, tingling, and seizure, Psych: Negative for depression, anxiety, suicide ideation, homicidal ideation, and hallucinations, Allergy/Immunology: Negative for hives, rash, and allergies, Endocrine: Negative for neck swelling, polydipsia, polyuria, polyphagia, and marked weight changes, Hematologic/Lymphatic: Negative for swollen nodes, abnormal bleeding, and unusual bruising. Exam: 09:55 Constitutional: This is a well developed, well nourished patient who is awake, alert, abhi and in no acute distress. Eyes: Pupils equal round and reactive to light, extra-ocular motions intact. Lids and lashes normal. Conjunctiva and sclera are non-icteric and not injected. Cornea within normal limits. Periorbital areas with no swelling, redness, or edema. ENT: Nares patent. No nasal discharge, no septal abnormalities noted. Tympanic membranes are normal and external auditory canals are clear. Oropharynx with no redness, swelling, or masses, exudates, or evidence of obstruction, uvula midline. Mucous membranes moist. Neck: Trachea midline, no thyromegaly or masses palpated, and no cervical lymphadenopathy. Supple, full range of motion without nuchal rigidity, or vertebral point tenderness. No Meningismus. Chest/axilla: Normal chest wall appearance and motion. Nontender with no deformity. No lesions are appreciated. Cardiovascular: Regular rate and rhythm with a normal S1 and S2. No gallops, murmurs, or rubs. Normal PMI, no JVD. No pulse deficits. Respiratory: Lungs have equal breath sounds bilaterally, clear to auscultation and percussion. No rales, rhonchi or wheezes noted. No increased work of breathing, no retractions or nasal flaring. Abdomen/GI: Soft, non-tender, with normal bowel sounds. No distension or tympany. No guarding or rebound. No evidence of tenderness throughout. Back: No spinal tenderness. No costovertebral tenderness. Full range of motion. Male : Normal genitalia with no discharge or lesions. Skin: Warm, dry with normal turgor. Normal color with no rashes, no lesions, and no evidence of cellulitis. MS/ Extremity: Pulses equal, no cyanosis. Neurovascular intact. Full, normal range of motion. Neuro: Awake and alert, GCS 15, oriented to person, place, time, and situation. Cranial nerves II-XII grossly intact. Motor strength 5/5 in all extremities. Sensory grossly intact. Cerebellar exam normal. Normal gait. Psych: Awake, alert, with orientation to person, place and time. Behavior, mood, and affect are within normal limits. 09:55 Head/face: Noted is a laceration(s), that is superficial, of the mouth. Vital Signs: 09:04 BP 139 / 68; Pulse 54; Resp 18; Temp 97.5; Pulse Ox 100% on R/A; ph 10:35 BP 162 / 59; Pulse 52; Resp 16; Pulse Ox 100% on R/A; ph 11:30 BP 128 / 72; Pulse 57; Resp 16; Pulse Ox 99% on R/A; ph 12:30 BP 134 / 55; Pulse 58; Resp 16; Pulse Ox 99% on R/A; ph 13:30 BP 165 / 77; Pulse 67; Resp 18; Pulse Ox 98% on R/A; ph 14:30 BP 154 / 70; Pulse 71; Resp 18; Pulse Ox 99% on R/A; ph 15:49 BP 127 / 65; Pulse 62; Resp 18; Temp 97.8; Pulse Ox 100% on R/A; ph 17:00 BP 122 / 68; Pulse 67; Resp 18; Temp 97.9; Pulse Ox 99% on R/A; ph [place] Coma Score: 09:10 Eye Response: spontaneous(4). Verbal Response: oriented(5). Motor Response: obeys ph commands(6). Total: 15. 10:35 Eye Response: spontaneous(4). Verbal Response: oriented(5). Motor Response: obeys ph commands(6). Total: 15. 11:30 Eye Response: spontaneous(4). Verbal Response: oriented(5). Motor Response: obeys ph commands(6). Total: 15. 12:30 Eye Response: spontaneous(4). Verbal Response: oriented(5). Motor Response: obeys ph commands(6). Total: 15. 13:30 Eye Response: spontaneous(4). Verbal Response: oriented(5). Motor Response: obeys ph commands(6). Total: 15. 14:30 Eye Response: spontaneous(4). Verbal Response: oriented(5). Motor Response: obeys ph commands(6). Total: 15. 15:49 Eye Response: spontaneous(4). Verbal Response: oriented(5). Motor Response: obeys ph commands(6). Total: 15. 17:00 Eye Response: spontaneous(4). Verbal Response: oriented(5). Motor Response: obeys ph commands(6). Total: 15. Trauma Score (Adult): 09:10 Eye Response: spontaneous(1); Verbal Response: oriented(1); Motor Response: obeys ph commands(2); Systolic BP: > 89 mm Hg(4); Respiratory Rate: 10 to 29 per min(4); Terence Score: 15; Trauma Score: 12 10:35 Eye Response: spontaneous(1); Verbal Response: oriented(1); Motor Response: obeys ph commands(2); Systolic BP: > 89 mm Hg(4); Respiratory Rate: 10 to 29 per min(4); [place] Score: 15; Trauma Score: 12 11:30 Eye Response: spontaneous(1); Verbal Response: oriented(1); Motor Response: obeys ph commands(2); Systolic BP: > 89 mm Hg(4); Respiratory Rate: 10 to 29 per min(4); Terence Score: 15; Trauma Score: 12 12:30 Eye Response: spontaneous(1); Verbal Response: oriented(1); Motor Response: obeys ph commands(2); Systolic BP: > 89 mm Hg(4); Respiratory Rate: 10 to 29 per min(4); [place] Score: 15; Trauma Score: 12 13:30 Eye Response: spontaneous(1); Verbal Response: oriented(1); Motor Response: obeys ph commands(2); Systolic BP: > 89 mm Hg(4); Respiratory Rate: 10 to 29 per min(4); [place] Score: 15; Trauma Score: 12 14:30 Eye Response: spontaneous(1); Verbal Response: oriented(1); Motor Response: obeys ph commands(2); Systolic BP: > 89 mm Hg(4); Respiratory Rate: 10 to 29 per min(4); Terence Score: 15; Trauma Score: 12 15:49 Eye Response: spontaneous(1); Verbal Response: oriented(1); Motor Response: obeys ph commands(2); Systolic BP: > 89 mm Hg(4); Respiratory Rate: 10 to 29 per min(4); Terence Score: 15; Trauma Score: 12 17:00 Eye Response: spontaneous(1); Verbal Response: oriented(1); Motor Response: obeys ph commands(2); Systolic BP: > 89 mm Hg(4); Respiratory Rate: 10 to 29 per min(4); [place] Score: 15; Trauma Score: 12 MDM: 09:11 Patient medically screened. [facility] 09:56 Data reviewed: vital signs, nurses notes, lab test result(s), EKG, radiologic studies, [facility] CT scan, plain films. 07/14 09:53 Order name: Basic Metabolic Panel; Complete Time: 12:11 [facility] 07/14 09:53 Order name: CBC with Diff; Complete Time: 12:11 [facility] 07/14 09:53 Order name: LFT's; Complete Time: 12:11 [facility] 07/14 09:53 Order name: Magnesium; Complete Time: 12:11 [facility] 07/14 09:53 Order name: NT PRO-BNP; Complete Time: 12:11 [facility] 07/14 09:53 Order name: PT-INR; Complete Time: 12:11 [facility] 07/14 09:53 Order name: Troponin (emerg Dept Use Only); Complete Time: 12:11 [facility] 07/14 09:53 Order name: XRAY Chest (1 view); Complete Time: 12:11 [facility] 07/14 09:53 Order name: Urine Culture [facility] 07/14 09:53 Order name: CT Traumagram (Head C Spine CAP wo con); Complete Time: 12:11 [facility] 07/14 09:58 Order name: Echo w/ Doppler [facility] 07/14 11:37 Order name: Urine Dipstick--Ancillary (enter results); Complete Time: 12:11 03/18 09:53 Order name: EKG; Complete Time: 09:54 [facility] 07/14 09:53 Order name: Cardiac monitoring; Complete Time: 09:54 [facility] 07/14 09:53 Order name: EKG - Nurse/Tech; Complete Time: 10:34 [facility] 07/14 09:53 Order name: IV Saline Lock; Complete Time: 10:34 [facility] 07/14 09:53 Order name: Labs collected and sent; Complete Time: 10:34 [facility] 07/14 09:53 Order name: O2 Per Protocol; Complete Time: 09:55 [facility] 07/14 09:53 Order name: O2 Sat Monitoring; Complete Time: 09:55 [facility] 07/14 09:53 Order name: Urine Dipstick-Ancillary (obtain specimen); Complete Time: 19:45 [facility] 07/14 13:42 Order name: Diet Ada 1800 Leonardo; Complete Time: 13:42 ph Administered Medications: 10:33 Drug: NS 0.9% 500 ml Route: IV; Rate: bolus; Site: right forearm; ph 11:15 Follow up: IV Status: Completed infusion ph 10:34 Drug: NS 0.9% 1000 ml Route: IV; Rate: 125 ml/hr; Site: right forearm; ph 16:30 Follow up: Response: No adverse reaction; IV Status: Completed infusion ph Disposition: 07/14/18 12:15 Hospitalization ordered by Feliberto Vivas for Observation. Preliminary diagnosis are Parkinson's disease, Fall due to bumping against object, Syncope and collapse - near, Anemia, unspecified, Bradycardia, unspecified. - Bed requested for Telemetry/MedSurg (observation). - Status is Observation. ph - Condition is Fair. - Problem is new. - Symptoms have improved. UTI on Admission? No Signatures: Dispatcher [employer] Elyse Rowell RN RN dw Anderson, Corey, MD MD cha Hall, Patricia, RN RN ph Corrections: (The following items were deleted from the chart) 12:18 12:15 Hospitalization Ordered by Feliberto Vivas DO for Observation. Preliminary [facility] diagnosis is Parkinson's disease; Fall due to bumping against object; Syncope and collapse - near; Anemia, unspecified. Bed requested for Telemetry/MedSurg (observation). Status is Observation. Condition is Fair. Problem is new. Symptoms have improved. UTI on Admission? No. abhi 15:18 12:18 07/14/2018 12:15 Hospitalization Ordered by Feliberto Vivas DO for Observation. dw Preliminary diagnosis is Parkinson's disease; Fall due to bumping against object; Syncope and collapse - near; Anemia, unspecified; Bradycardia, unspecified. Bed requested for Telemetry/MedSurg (observation). Status is Observation. Condition is Fair. Problem is new. Symptoms have improved. UTI on Admission? No. abhi 17:15 15:18 07/14/2018 12:15 Hospitalization Ordered by Feliberto Vivas DO for Observation. ph Preliminary diagnosis is Parkinson's disease; Fall due to bumping against object; Syncope and collapse - near; Anemia, unspecified; Bradycardia, unspecified. Bed requested for Telemetry/MedSurg (observation). Status is Observation. Condition is Fair. Problem is new. Symptoms have improved. UTI on Admission? No. dw
--- NOTE | 2018-07-14 12:16 | ER ---
Nurse's Notes [facility] Name: Sumanth Louis Age: 78 yrs Sex: Male : 1940 Arrival Date: 07/14/2018 Time: 09:02 Bed 5 Private MD: Diagnosis: Parkinson's disease;Fall due to bumping against object;Syncope and collapse-near;Anemia, unspecified;Bradycardia, unspecified Presentation: 07/14 09:02 Presenting complaint: EMS states: Was walking w/ walker and spilled water, fell forward ph onto walker, denies LOC, bleeding noted from mouth, hx of Parkinson's, reports not feeling well prior to fall, 12 lead sinus bertrand. Transition of care: patient was not received from another setting of care. Onset of symptoms was July 14, 2018. Risk Assessment: Do you want to hurt yourself or someone else? Patient reports no desire to harm self or others. Initial Sepsis Screen: Does the patient meet any 2 criteria? No. Patient's initial sepsis screen is negative. Does the patient have a suspected source of infection? No. Patient's initial sepsis screen is negative. Care prior to arrival: None. 09:02 Method Of Arrival: EMS: [facility] 09:02 Acuity: IRINA 3 09:02 Mechanism of Injury: Fall from standing position. Trauma event details: Injury occurred in the [facility], Injury occurred: at home. Injury occurred: July 14, 2018. Trauma Activation: Not Applicable Physician: ED Physician; Name: ; Notified At: ; Arrived At: Physician: General Surgeon; Name: ; Notified At: ; Arrived At: Physician: Radiology; Name: ; Notified At: ; Arrived At: Physician: Respiratory; Name: ; Notified At: ; Arrived At: Physician: Lab; Name: ; Notified At: ; Arrived At: Historical: - Allergies: 09:07 No Known Allergies; ph - Home Meds: 10:42 carbidopa-levodopa 25-250 mg oral tab 1 tab 4 times per day [Active]; atorvastatin 20 ph mg Oral tab 1 tab once daily [Active]; donepezil 5 mg Oral tab 1 tab once daily [Active]; loratadine 10 mg oral tab 1 tab once daily [Active]; pantoprazole 40 mg oral TbEC 1 tab once daily [Active]; metoprolol tartrate 25 mg Oral tab 0.5 tab 2 times per day [Active]; aspirin 81 mg Oral TbEC 1 tab once daily [Active]; sertraline 25 mg oral tab 1 tab once daily [Active]; One-A-Day Men's Multivitamin 400-300 mcg Oral tab daily [Active]; Urinozinc Prostate Formula oral oral [Active]; - PMHx: 09:07 Anemia; Anxiety; Bilateral deafness; Bilateral degeneration of macula; CHF; chronic ph pain syndrome; Dementia; Hernia; Hypertension; LOCALIZED EDEMA; osteoarthritis; PAD; Parkinsons; Rhinitis; right inguinal hernia; Vitamin D3 deficiency; - Immunization history:: Adult Immunizations unknown. - Social history:: Smoking status: Patient/guardian denies using tobacco. - Immunization history: Last tetanus immunization: unknown. - Ebola Screening: : No symptoms or risks identified at this time. Screenin:09 Abuse screen: Denies threats or abuse. Denies injuries from another. Nutritional ph screening: No deficits noted. Tuberculosis screening: No symptoms or risk factors identified. Fall Risk None identified. Primary Survey: :09 NO uncontrolled hemorrhage observed. A: The patient is alert. No supplemental oxygen in ph use on arrival. Oral cavity: clear, blood present. Breathing/Chest: Respiratory pattern: regular, Respiratory effort: spontaneous, unlabored, Breath sounds: clear, bilaterally. Chest inspection: symmetrical rise and fall of the chest. Circulation: Skin color: pink, Skin temperature: warm, dry. Disability Alert. Exposure/Environment: All clothing and personal items were removed. Forensic evidence collection is not deemed to be indicated at this time. Items placed in patient belonging bag. 10:43 Reassessment Airway Airway Patent Oxygen No O2 Breathing/Chest Respiratory pattern ph Regular Respiratory effort Spontaneous Unlabored Chest inspection Symmetrical Circulation Heart rhythm Sinus bertrand Pulses Palpable Color [place] Temperature Warm Dry Disability Alert. Assessment: 09:07 General: Appears in no apparent distress. comfortable, slender, well groomed, Behavior ph is calm, cooperative, appropriate for age, Denies fever, chills. Pain: Complains of pain in head and abdomen. Neuro: Level of Consciousness is awake, alert, obeys commands, Oriented to person, place, situation. Cardiovascular: Capillary refill < 3 seconds in bilateral fingers Patient's skin is warm and dry. Respiratory: Airway is patent Respiratory effort is even, unlabored, Respiratory pattern is regular, symmetrical, Denies shortness of breath. GI: Reports lower abdominal pain, upper abdominal pain, Patient currently denies diarrhea, nausea, vomiting. Derm: Skin is healthy with good turgor, Skin is pink, warm \T\ dry. 10:00 Reassessment: Patient appears in no apparent distress at this time. Patient and/or ph family updated on plan of care and expected duration. Pain level reassessed. Patient is alert, oriented x 3, equal unlabored respirations, skin warm/dry/pink. 11:00 Reassessment: Patient appears in no apparent distress at this time. Patient and/or ph family updated on plan of care and expected duration. Pain level reassessed. Patient is alert, oriented x 3, equal unlabored respirations, skin warm/dry/pink. 12:00 Reassessment: Patient appears in no apparent distress at this time. Patient and/or ph family updated on plan of care and expected duration. Pain level reassessed. Patient is alert, oriented x 3, equal unlabored respirations, skin warm/dry/pink. 13:30 Reassessment: Patient appears in no apparent distress at this time. Patient and/or ph family updated on plan of care and expected duration. Pain level reassessed. Patient is alert, oriented x 3, equal unlabored respirations, skin warm/dry/pink. 14:30 Reassessment: Patient appears in no apparent distress at this time. Patient and/or ph family updated on plan of care and expected duration. Pain level reassessed. Patient is alert, oriented x 3, equal unlabored respirations, skin warm/dry/pink. 15:48 Reassessment: Patient appears in no apparent distress at this time. Patient and/or ph family updated on plan of care and expected duration. Pain level reassessed. Patient is alert, oriented x 3, equal unlabored respirations, skin warm/dry/pink. 16:00 Reassessment: Patient appears in no apparent distress at this time. Patient and/or ph family updated on plan of care and expected duration. Pain level reassessed. Patient is alert, oriented x 3, equal unlabored respirations, skin warm/dry/pink. Attempted to call report, receiving nurse unavailable, will attempt again. Vital Signs: 09:04 BP 139 / 68; Pulse 54; Resp 18; Temp 97.5; Pulse Ox 100% on R/A; ph 10:35 BP 162 / 59; Pulse 52; Resp 16; Pulse Ox 100% on R/A; ph 11:30 BP 128 / 72; Pulse 57; Resp 16; Pulse Ox 99% on R/A; ph 12:30 BP 134 / 55; Pulse 58; Resp 16; Pulse Ox 99% on R/A; ph 13:30 BP 165 / 77; Pulse 67; Resp 18; Pulse Ox 98% on R/A; ph 14:30 BP 154 / 70; Pulse 71; Resp 18; Pulse Ox 99% on R/A; ph 15:49 BP 127 / 65; Pulse 62; Resp 18; Temp 97.8; Pulse Ox 100% on R/A; ph 17:00 BP 122 / 68; Pulse 67; Resp 18; Temp 97.9; Pulse Ox 99% on R/A; ph Jarratt Coma Score: 09:10 Eye Response: spontaneous(4). Verbal Response: oriented(5). Motor Response: obeys ph commands(6). Total: 15. 10:35 Eye Response: spontaneous(4). Verbal Response: oriented(5). Motor Response: obeys ph commands(6). Total: 15. 11:30 Eye Response: spontaneous(4). Verbal Response: oriented(5). Motor Response: obeys ph commands(6). Total: 15. 12:30 Eye Response: spontaneous(4). Verbal Response: oriented(5). Motor Response: obeys ph commands(6). Total: 15. 13:30 Eye Response: spontaneous(4). Verbal Response: oriented(5). Motor Response: obeys ph commands(6). Total: 15. 14:30 Eye Response: spontaneous(4). Verbal Response: oriented(5). Motor Response: obeys ph commands(6). Total: 15. 15:49 Eye Response: spontaneous(4). Verbal Response: oriented(5). Motor Response: obeys ph commands(6). Total: 15. 17:00 Eye Response: spontaneous(4). Verbal Response: oriented(5). Motor Response: obeys ph commands(6). Total: 15. Trauma Score (Adult): 09:10 Eye Response: spontaneous(1); Verbal Response: oriented(1); Motor Response: obeys ph commands(2); Systolic BP: > 89 mm Hg(4); Respiratory Rate: 10 to 29 per min(4); Jarratt Score: 15; Trauma Score: 12 10:35 Eye Response: spontaneous(1); Verbal Response: oriented(1); Motor Response: obeys ph commands(2); Systolic BP: > 89 mm Hg(4); Respiratory Rate: 10 to 29 per min(4); Jarratt Score: 15; Trauma Score: 12 11:30 Eye Response: spontaneous(1); Verbal Response: oriented(1); Motor Response: obeys ph commands(2); Systolic BP: > 89 mm Hg(4); Respiratory Rate: 10 to 29 per min(4); Terence Score: 15; Trauma Score: 12 12:30 Eye Response: spontaneous(1); Verbal Response: oriented(1); Motor Response: obeys ph commands(2); Systolic BP: > 89 mm Hg(4); Respiratory Rate: 10 to 29 per min(4); Jarratt Score: 15; Trauma Score: 12 13:30 Eye Response: spontaneous(1); Verbal Response: oriented(1); Motor Response: obeys ph commands(2); Systolic BP: > 89 mm Hg(4); Respiratory Rate: 10 to 29 per min(4); Jarratt Score: 15; Trauma Score: 12 14:30 Eye Response: spontaneous(1); Verbal Response: oriented(1); Motor Response: obeys ph commands(2); Systolic BP: > 89 mm Hg(4); Respiratory Rate: 10 to 29 per min(4); Jarratt Score: 15; Trauma Score: 12 15:49 Eye Response: spontaneous(1); Verbal Response: oriented(1); Motor Response: obeys ph commands(2); Systolic BP: > 89 mm Hg(4); Respiratory Rate: 10 to 29 per min(4); Terence Score: 15; Trauma Score: 12 17:00 Eye Response: spontaneous(1); Verbal Response: oriented(1); Motor Response: obeys ph commands(2); Systolic BP: > 89 mm Hg(4); Respiratory Rate: 10 to 29 per min(4); Jarratt Score: 15; Trauma Score: 12 ED Course: 09:02 Patient arrived in ED. ph 09:04 Triage completed. ph 09:07 Arm band placed on Patient placed in an exam room. ph 09:09 Patient has correct armband on for positive identification. Bed in low position. Call ph light in reach. Side rails up X2. Pulse ox on. NIBP on. Door closed. Lights dimmed. Warm blanket given. 09:09 Patient maintains SpO2 saturation greater than 95% on room air. Thermoregulation: warm ph blanket given to patient. 09:11 Wood Henry MD is Attending Physician. abhi 09:54 Whitley Brock RN is Primary Nurse. ph 09:57 EKG done, by information technology coordinator. reviewed by Wood Henry MD. dt2 10:13 CT completed. Patient tolerated procedure well. Patient moved to CT via stretcher. sj Patient moved back from CT. 10:16 CT Traumagram (Head C Spine CAP wo con) In Process Unspecified. EDMS 10:16 Inserted saline lock: 22 gauge in right forearm, using aseptic technique. Blood ph collected. 10:42 XRAY Chest (1 view) In Process Unspecified. EDMS 12:14 Feliberto Vivas DO is Hospitalizing Provider. abhi 17:15 No provider procedures requiring assistance completed. Patient admitted, IV remains in ph place. Administered Medications: 10:33 Drug: NS 0.9% 500 ml Route: IV; Rate: bolus; Site: right forearm; ph 11:15 Follow up: IV Status: Completed infusion ph 10:34 Drug: NS 0.9% 1000 ml Route: IV; Rate: 125 ml/hr; Site: right forearm; ph 16:30 Follow up: Response: No adverse reaction; IV Status: Completed infusion ph Intake: 09:10 PO: 0ml; Total: 0ml. ph 10:35 PO: 0ml; Total: 0ml. ph 15:49 IV: 1000ml (IV Fluid); Total: 1000ml. ph Output: 09:10 Urine: 0ml; Total: 0ml. ph 10:35 Urine: 0ml; Total: 0ml. ph 15:49 Urine: 400ml; Total: 400ml. ph Outcome: 12:15 Decision to Hospitalize by Provider. abhi 17:15 Patient left the ED. ph 17:15 Admitted to Tele accompanied by tech, family with patient, via stretcher, with chart. ph 17:15 Condition: stable 17:15 Instructed on the need for admit. Signatures: Dispatcher [employer] Wood Ryan, MD MD abhi Minaya, Whitley Haro RN RN Shanda Locke
--- NOTE | 2018-07-14 15:52 | P.HP ---
Certification for Inpatient Patient admitted to: Observation With expected LOS: <2 Midnights Patient will require the following post-hospital care: Home Health Services Practitioner: I am a practitioner with admitting privileges, knowledge of patient current condition, hospital course, and medical plan of care. Services: Services provided to patient in accordance with Admission requirements found in Title 42 Section 412.3 of the Code of Federal Regulations Patient History Date of Service: 07/14/18 Primary Care Provider: Dr. Barnes; Neurology-Dr. Grimes Reason for admission: Syncope History of Present Illness: 78-year-old male presented to emergency room after syncopal episode. Patient was apparently walking from the kitchen to the living room. Patient apparently passed out. Family heard a thud. They thought he may have hit his head. He had bleeding to the lip. He did not recall the events prior to the syncopal episode. EMS was called. EMS noted that his blood pressure was low. He was feeling kind of dizzy and lightheaded. He was sent to the ER for further evaluation. In the ER patient evaluated. Heart rate was around 52. Blood pressure stable. CBC unremarkable. BMP stable. Initial CT head N chest unremarkable for fracture. Urinalysis unremarkable. Troponin unremarkable. Patient was admitted for further evaluation. When I saw the patient in the ER, family was at bedside. Multiple medications reviewed. Patient taking metoprolol 12.5 mg 1 pill twice daily. Patient has been hospitalized multiple times. 1 family member reports that the medication had been discontinued. They are unsure whether the patient is getting this medication. Patient admitted for further evaluation. Allergies No Known Allergies Allergy (Unverified 02/04/18 17:35) Home medications list reviewed: Yes Home Medications: Amlodipine [Norvasc*] 5 mg PO DAILY 06/24/18 Aspirin [Aspirin EC 81 MG] 81 mg PO DAILY 06/24/18 Atorvastatin Calcium [Lipitor*] 20 mg PO BEDTIME 06/24/18 Carbidopa/Levodopa 25-250 [Sinemet 25-250*] 1 tab PO QID 06/24/18 Donepezil [Aricept*] 5 mg PO BEDTIME 06/24/18 Fexofenadine/Pseudoephedrine [Franny-D 24 Hour Tablet] 1 each PO DAILY Fluticasone [Flonase 50MCG Nasal [place]*] 2 sprays NS DAILY 06/24/18 Furosemide [Lasix] 40 mg PO DAILY 06/24/18 - Past Medical/Surgical History Diabetic: No -: Parkinson's -: Dementia -: Macular degeneration -: 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 He is . Daughter has medical power of electro mechanical assembler. - Family History Family History: Reviewed- Non-Contributory - Social History Smoking Status: Never smoker Alcohol use: No CD- Drugs: No Caffeine use: Yes Place of Residence: Home Review of Systems General: As per HPI Eyes: Unremarkable ENT: Unremarkable Respiratory: Unremarkable Cardiovascular: Light Headedness, As per HPI Gastrointestinal: Unremarkable Genitourinary: Unremarkable Musculoskeletal: Unremarkable Integumentary: Unremarkable Neurological: As per HPI Lymphatics: Unremarkable Physical Examination - Physical Exam General: Alert, In no apparent distress, Oriented x3, Cooperative HEENT: Atraumatic, Mucous membr. moist/pink, Other (Mild bruising to the lips) Neck: Supple, No Thyromegaly Respiratory: Clear to auscultation bilaterally, Normal air movement Cardiovascular: Normal pulses, Regular rate/rhythm Gastrointestinal: Normal bowel sounds, Soft and benign, Non-distended, No tenderness, No masses, No rebound, No guarding Musculoskeletal: No erythema, No tenderness, No warmth Integumentary: No tenderness/swelling, No erythema, No warmth, No cyanosis Neurological: Normal speech, Normal strength at 5/5 x4 extr, Normal tone, Normal affect - Studies Laboratory Data (last 24 hrs) 07/14/18 10:05: PT 11.5, INR 0.97 07/14/18 10:05: WBC 4.7, Hgb 11.9 L, Hct 35.4 L, Plt Count 215 07/14/18 10:05: Sodium 141, Potassium 4.2, BUN 14, Creatinine 1.14, Glucose 109 H, Magnesium 2.4, Total Bilirubin 0.4, AST 21, ALT 11 L, Alkaline Phosphatase 86 Assessment and Plan - Plan Impression: Syncopal episode likely orthostatic hypertension related to medication complicated with dehydration and poor oral intake Parkinson's disease Dementia Hyperlipidemia GERD Plan: Syncopal episode likely orthostatic hypertension related to medication complicated with dehydration and poor oral intake: Patient will be admitted for further evaluation. CT scan of head unremarkable. Patient has been hospitalized multiple times for evaluation. Will consult neurology for further recommendation. Suspect medication related. Will discontinue metoprolol. Will continue to monitor closely. Monitor cardiac enzymes. Will consult physical therapy and occupational therapy to assess. Anticipate discharge in the next 24 hr if improved. Will consult cardiology as well to further evaluate. Parkinson's disease: Continue home medication Dementia: Continue home medication Hyperlipidemia: Continue home medication GERD: Continue home medication Discharge Plan: Home Plan to discharge in: 24 Hours - Advance Directives Does patient have a Living Will: No Does patient have a Durable POA for Healthcare: Yes - Code Status/Comfort Care Code Status Assessed: Yes (Patient is do not resuscitate) Time Spent Managing Pts Care (In Minutes): 55
--- NOTE | 2018-07-14 16:14 | ECHO ---
HEIGHT: ft in WEIGHT: lb oz DATE OF STUDY: 07/14/[address]: Wood Henry MD 2-DIMENSIONAL: YES M.MODE: YES DOPPLER: YES COLOR FLOW: YES TDS: PORTABLE: YES DEFINITY: BUBBLE STUDY: DIAGNOSIS: SYNCOPE CARDIAC HISTORY: CATHERIZATION: YES SURGERY: NO PROSTHETIC VALVE: NO PACEMAKER: NO MEASUREMENTS (cm) DIASTOLIC (NORMALS) SYSTOLIC (NORMALS) IVSd 0.9 (0.6-1.2) LA Diam (1.9-4.0) LVEF 40% LVIDd 4.6 (3.5-5.7) LVIDs 3.7 (2.0-3.5) %FS 20% LVPWd 1.0 (0.6-1.2) Ao Diam 3.3 (2.0-3.7) 2 DIMENSIONAL ASSESSMENT: RIGHT ATRIUM: NORMAL LEFT ATRIUM: DILATED RIGHT VENTRICLE: NORMAL LEFT VENTRICLE: NORMAL TRICUSPID VALVE: NORMAL MITRAL VALVE: THICKENED LEAFLET PULMONIC VALVE: NORMAL AORTIC VALVE: MILD SCLEROSIS PERICARDIAL EFFUSION: NONE AORTIC ROOT: LEFT VENTRICULAR WALL MOTION: NORMAL DOPPLER/COLOR FLOW: MILD AORTIC REGURGITATION AND MITRAL REGURGITATION. COMMENTS: NORMAL LEFT VENTRICULAR EJECTION FRACTION. DILATED LEFT ATRIUM. THICKENED MITRAL LEAFLET. MILD AORTIC SCLEROSIS WITH NO AORTIC STENOSIS. MILD MITRAL REGURGITATION AND TRICUSPID REGURGITATION. TECHNOLOGIST: BEA ARROYO
[2018-07-14] MEDS ORDERED: ONDANSETRON 4 MG/2 ML VIAL IV PRN (17:07)
[2018-07-14] MEDS: CARBIDOPA/LEVODOPA 25/250 TAB PO SCH ×2 (17:07→20:19)
[2018-07-14] MEDS ORDERED: ACETAMINOPHEN 500 MG TAB PO PRN (17:07)
[2018-07-14 18:12] VITALS: BMI 22.3
[2018-07-14 18:18] LABS: CKMB Creatine Kinase MB 1.9 ng/mL (0.3-3.6); Creatine Phosphokinase 63 U/L (39-308); Troponin I < 0.02 ng/mL (0.0-0.045)
[2018-07-14] MEDS: NA CHLORIDE 0.9% 1,000 ML IV SCH (18:26)
--- NOTE | 2018-07-14 19:35 | RAD REPORT ---
EXAM DESCRIPTION: MRI - Brain Wo Cont - 07/14/2018 7:11 pm CLINICAL HISTORY: syncope Headache, drowsiness COMPARISON: Brain Wo Cont dated 02/04/2018; Head C Spine Cap Wo Con dated 07/14/2018 TECHNIQUE: Multi-sequence, multiplanar MR imaging of the brain was performed without contrast. FINDINGS: No intracranial hemorrhage, hydrocephalus or extra-axial fluid collections. No edema or sh ift of midline structures. No findings to suspect brain mass. DWI is negative for acute CVA. Midline structures are normally formed. Mild fluid is seen in both mastoid air cells, greater on the right. IMPRESSION: No acute or worrisome intracranial abnormalities.
[2018-07-14] MEDS ORDERED: ATORVASTATIN 20 MG TAB PO SCH (21:00)
[2018-07-14] MEDS ORDERED: DONEPEZIL HCL 5 MG TAB PO SCH (21:00)
--- NOTE | 2018-07-14 21:48 | CON ---
History Of Present Illness: Mr. Louis is here because he lost consciousness. It was early this morn ing. He had awakened from sleep, taken some of his medicines that medicine included 12.5 mg of metop rolol. He normally wears stockings to avoid orthostatic hypotension symptoms, but was not wearing th em this morning, got up, walked, and in less than a minute he fell to the floor. Family members hear d a thud. He was awake as soon as they arrived. There was no bladder or bowel incontinence or tongu e biting. He has injury to his lips and nose. Mr. Louis has Parkinson disease and dementia, both ar e long-standing. We do not have his home medications list, but I reviewed them. He had been taken o ff amlodipine several months ago, still remained on Sinemet or similar preparation to that and metopr olol 12.5 b.i.d., and Lasix. He also takes Protonix. He does not have allergies. 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 One of his medicines again is donepezil or Aricept. Physical Examination: General: Mr. Louis is alert, oriented, not in distress. He has a breathy voice typical of Parkinson disease. Lungs: Clear. Cardiac: Normal. There is no carotid bruit. Diagnostic Studies: An echocardiogram is unremarkable. We do not have any EKG scanned into his sharron t at this point, not sure why he did not have an EKG, but he should have one. Impression: I think the patient should get orthostatic vital signs, stay off any diuretics or any bl ood pressure lowering medications until we are sure that the standing blood pressure is adequate to s upport that. I think, he will continue to have a problem of low blood pressure from autonomic insuff iciency and at some point, we may need to give ProAmatine, but avoiding diuretics, avoiding vasodilat ors and beta-blockers and calcium channel blockers will be required most likely. Thank you very much for your kind referral of Mr. Louis. I will follow him with you. DARYL/MODL Voice ID: [id number] Report ID: [id number]
--- NOTE | 2018-07-14 22:54 | CON ---
Date of Consultation: 07/14/2018 Reason: Syncope. History: An 78-year-old gentleman with Parkinson's disease, deaf, heart failure, chronic pain, demen tia, hypertension. We have been seeing him recently in the office. We had seen him some time ago wh en he was lost to follow up. He has different set of caregivers now. Really, he has been having pro blems for a while. He has had two trips to the emergency department in May, nausea, vomiting, d ehydration, was found to have some elevation in his lipase. Was seeing Gastroenterology and had an e pisode of syncope like a little over a month ago and then a recurrent episode of syncope and was refe rred up to the [facility], where he had another evaluation and metoprolol was adde d to his antihypertensive regimen, and his other antihypertensive amlodipine it appears was discontin ued. The patient persists in having nausea and not feeling well. Today, he woke up. He took his me dications routinely and then he had another episode of syncope. The patient has really no recollecti on. Family just recalls they heard a thud and the patient was on the floor and had fallen, was bleed ing at the mouth, had tipped over with his walker. EMS was summoned. Blood pressure was low, so he was brought to the hospital, where a CT scan of the brain, routine labs were unremarkable. Review of prior data does indeed reveal there is a lipase of over 2000 on the , but then down to just 200 on the 26 of June, which seems very unusual. Consultation was requested. Past Medical History: As alluded to. Medications: Sinemet 25/250 q.i.d., atorvastatin, Aricept 5, loratadine, pantoprazole, metoprolol, a spirin, sertraline. Allergies: NONE. Social History: The patient requires assistance with activities of daily living. Family History: Noncontributory. Review of Systems: General: Chronically ill. HEENT: Eyes negative. Ears, Nose, Throat negative. Cardiovascular: Hypertension, hypotension. GI: Nausea. : Negative. Musculoskeletal: Arthralgias. Neurologic: As noted. Psychiatric: Negative. Endocrine: Negative. Hematologic: Negative. Physical Examination: Vital Signs: 97.8, 62, 18, 127/65. General: He is a pleasant, elderly gentleman lying in bed, in no distress with moderate fairly obvio us masking of facial expression. HEENT: Pupils reactive. Ocular motion full. Griffin full. Facial strength and sensation are normal . Tongue protrudes evenly. Soft palate elevates symmetrically bilaterally. Extremity: Strength full. Moderate cogwheeling on the left, not on the right. Neurological: Sensation intact. Reflexes 1/4. Symmetric toes are downgoing. Cerebellar exam demon strates no ataxia given the degree of bradykinesia. Impression: Syncope, likely orthostatic. No real evidence for stroke on physical exam. Plan: Would stop the Aricept. It can cause bradycardia. It can cause nausea. Try Namenda instead. Check brain MRI. Check EEG. Repeat the lipase. It is very unusual for it to be so high and orthostatic vitals. Thank you for the consult. We will continue to follow with you. SADAF Voice ID: [id number] Report ID: [id number]
[2018-07-15 01:57] LABS: CKMB Creatine Kinase MB 1.5 ng/mL (0.3-3.6); Creatine Phosphokinase 60 U/L (39-308); Troponin I < 0.02 ng/mL (0.0-0.045)
[2018-07-15] MEDS: NA CHLORIDE 0.9% 1,000 ML IV SCH (05:05)
[2018-07-15 06:00] LABS: Magnesium 2.1 mg/dL (1.8-2.4); Potassium 3.9 mmol/L (3.5-5.1)
--- NOTE | 2018-07-15 06:00 | EKG ---
Test Date: 2018-07-14 Test Time: 09:46:40 Manager Internal: KANNAN MEASUREMENT RESULTS: Intervals: Rate: 52 GA: 152 QRSD: 88 QT: 462 QTc: 429 Eva: P: GA: 152 QRS: 30 T: 70 INTERPRETIVE STATEMENTS: Sinus bradycardia with premature ventricular complexes Abnormal ECG Compared to ECG 06/24/2018 09:11:04 Premature ventricular complexes are now present Premature atrial complexes are no longer present Electronically Signed On 07-15-18 05:59:51 CDT by Rex Dumont
[2018-07-15 06:05] LABS: Absolute Lymphocytes (CBC) 1.7 K/uL (0.7-4.9); Absolute Monocytes 0.4 K/uL (0.1-1.3); Absolute Neutrophil 2.2 K/uL (1.8-8.0); Basophils % 0.6 % (0-1.3); MPV 7.8 fL (7.6-11.3); Monocytes % 9.5 % (3.3-12.3); RBC Red Blood Cell Count 3.38 M/uL (4.33-5.43)
[2018-07-15] MEDS ORDERED: POTASSIUM CL SA 10 MEQ TAB PO ONE (06:05)
[2018-07-15] MEDS ORDERED: PANTOPRAZOLE 40MG TABLET PO SCH (06:30)
[2018-07-15] MEDS ORDERED: ASPIRIN EC 81 MG TAB PO SCH (09:00)
[2018-07-15] MEDS ORDERED: SERTRALINE HCL 50 MG TAB PO SCH (09:00)
[2018-07-15] MEDS ORDERED: MEMANTINE HCL 10 MG TABLET PO SCH (09:00)
[2018-07-15] MEDS ORDERED: ENOXAPARIN 40 MG/0.4 ML SQ SCH (09:00)
[2018-07-15] MEDS: CARBIDOPA/LEVODOPA 25/250 TAB PO SCH ×2 (09:09→12:22)
[2018-07-15 09:51] VITALS: O2SAT 96
[2018-07-15 13:06] VITALS: BP 126/60; TEMP 97.6
--- NOTE | 2018-07-15 13:39 | P.DS ---
Admission Date: 07/14/18 Discharge Date: 07/15/18 Primary Care Provider: Dr. Barnes; Neurology-Dr. Grimes Disposition: ROUTINE DISCHARGE Discharge Condition: GOOD Reason for Admission: Syncope Consultations: Neurology-Dr. Grimes Cardiology-Dr. Dumont Procedures: CT: FINDINGS: CT HEAD WITHOUT CONTRAST: No intracranial hemorrhage, hydrocephalus or extra-axial fluid collection. No areas of brain edema or midline shift. The paranasal sinuses and mastoids are clear. The calvarium is intact. CT CERVICAL SPINE WITHOUT CONTRAST: No fracture or subluxation. Moderate lower cervical degenerative changes are present. The prevertebral soft tissues are normal in thickness. CT CHEST, ABDOMEN, PELVIS WITHOUT CONTRAST: NOTE: Lack of contrast is a significant limitation in the assessment of trauma related findings. Specifically, solid organ, vascular and bowel evaluation is significantly limited. 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 No evidence of intra-abdominal visceral injury, free fluid or free air is seen within the above detailed limitations. Small nonobstructing right renal calculus. No pelvic mass or hematoma seen. Multilevel degenerative changes throughout the axial skeleton. Acute fracture is not seen. IMPRESSION: Negative for acute traumatic findings within the above detailed limitations. MRI Brain: FINDINGS: No intracranial hemorrhage, hydrocephalus or extra-axial fluid collections. No edema or shift of midline structures. No findings to suspect brain mass. DWI is negative for acute CVA. Midline structures are normally formed. Mild fluid is seen in both mastoid air cells, greater on the right. IMPRESSION: No acute or worrisome intracranial abnormalities. ECHO: EF 40% LEFT VENTRICULAR WALL MOTION: NORMAL DOPPLER/COLOR FLOW: MILD AORTIC REGURGITATION AND MITRAL REGURGITATION. COMMENTS: NORMAL LEFT VENTRICULAR EJECTION FRACTION. DILATED LEFT ATRIUM. THICKENED MITRAL LEAFLET. MILD AORTIC SCLEROSIS WITH NO AORTIC STENOSIS. MILD MITRAL REGURGITATION AND TRICUSPID REGURGITATION. Medical Problem List: Syncopal episode secondary to orthostatic hypotension related to medication complicated with dehydration and poor oral intake Parkinson's disease Dementia Hyperlipidemia GERD Brief History of Present Illness: 78-year-old male presented to emergency room after syncopal episode. Patient was apparently walking from the kitchen to the living room. Patient apparently passed out. Family heard a thud. They thought he may have hit his head. He had bleeding to the lip. He did not recall the events prior to the syncopal episode. EMS was called. EMS noted that his blood pressure was low. He was feeling kind of dizzy and lightheaded. He was sent to the ER for further evaluation. In the ER patient evaluated. Heart rate was around 52. Blood pressure stable. CBC unremarkable. BMP stable. Initial CT head N chest unremarkable for fracture. Urinalysis unremarkable. Troponin unremarkable. Patient was admitted for further evaluation. When I saw the patient in the ER, family was at bedside. Multiple medications reviewed. Patient taking metoprolol 12.5 mg 1 pill twice daily. Patient has been hospitalized multiple times. 1 family member reports that the medication had been discontinued. They are unsure whether the patient is getting this medication. Patient admitted for further evaluation. Hospital Course: Patient presented with syncopal episode. This was likely secondary to orthostatic hypotension. This may been related to medication-metoprolol. Patient has been worked up multiple times in the recent past for similar complaints. Apparently his blood pressure medication had been discontinued. In review of his meds yesterday metoprolol was still present. CT scan, MRI brain unremarkable. Patient seen and evaluated by neurology and cardiology. Cardiology recommends to discontinue any blood pressure medication including those that may significantly decreased his blood pressure including diuretics, vasodilators, and beta-melissa therapy. Patient will continue off medication at this time. If his symptoms continue, patient may require midodrine scheduled. Patient will need to continue with his compression stockings. Patient is continue to monitor for syncope. Fall precautions in place. Encouragement of good oral hydration and oral intake is also recommended. Recommend to follow up with cardiology, neurology and his PCP within the next 1- 2 weeks to further monitor. Patient seen and evaluated by a neurology as the patient has underlying Parkinson's disease and dementia. 1 of his medications Aricept may cause bradycardia. This has been discontinued as recommended by Neurology. Neurology recommends to continue with Namenda only. Recommend to follow up with neurology as directed. Patient with hyperlipidemia. Patient continue with his medication. Patient with GERD. Patient continue with medication. Vital Signs/Physical Exam: Temp Pulse Resp BP Pulse Ox 97.6 F 60 18 126/60 100 07/15/18 12:00 07/15/18 12:00 07/15/18 12:00 07/15/18 12:00 07/15/18 12:00 General: Alert, In no apparent distress, Cooperative HEENT: Atraumatic Neck: Supple Respiratory: Clear to auscultation bilaterally, Normal air movement Cardiovascular: Normal pulses, Regular rate/rhythm Gastrointestinal: Normal bowel sounds, Soft and benign, Non-distended, No tenderness, No masses, No rebound, No guarding Musculoskeletal: No erythema, No tenderness, No warmth Integumentary: No tenderness/swelling, No erythema, No warmth, No cyanosis Neurological: Normal speech, Normal strength at 5/5 x4 extr, Normal tone, Other (Mild tremor noted.) Laboratory Data at Discharge: WBC 4.5 K/uL (4.3-10.9) 07/15/18 05:29 Hgb 11.2 g/dL (13.6-17.9) L 07/15/18 05:29 Hct 32.0 % (39.6-49.0) L 07/15/18 05:29 Plt Count 206 K/uL (152-406) 07/15/18 05:29 PT 11.5 SECONDS (9.5-12.5) 07/14/18 10:05 INR 0.97 07/14/18 10:05 Sodium 141 mmol/L (136-145) 07/15/18 05:29 Potassium 3.9 mmol/L (3.5-5.1) 07/15/18 05:29 BUN 13 mg/dL (7-18) 07/15/18 05:29 Creatinine 1.08 mg/dL (0.55-1.3) 07/15/18 05:29 Glucose 85 mg/dL (74-106) 07/15/18 05:29 Magnesium 2.1 mg/dL (1.8-2.4) 07/15/18 05:29 Total Bilirubin 0.4 mg/dL (0.2-1.0) 07/14/18 10:05 AST 21 U/L (15-37) 07/14/18 10:05 ALT 11 U/L (12-78) L 07/14/18 10:05 Alkaline Phosphatase 86 U/L (45-117) 07/14/18 10:05 Troponin I < 0.02 ng/mL (0.0-0.045) 07/15/18 01:29 Triglycerides 69 mg/dL (<150) 07/15/18 05:29 Cholesterol 151 mg/dL (<200) 07/15/18 05:29 HDL Cholesterol 66 mg/dL (40-60) H 07/15/18 05:29 Cholesterol/HDL Ratio 2.29 07/15/18 05:29 Lipase 119 U/L (73-393) 07/15/18 05:29 Home Medications: Ascorbic Acid/Ascorbate Sodium [Vitamin C 500 mg Wafer] 500 mg PO DAILY Aspirin [Adult Aspirin] 81 mg PO DAILY 07/14/18 Atorvastatin Calcium 20 mg PO BEDTIME 07/14/18 Carbidopa/Levodopa [Carbidopa-Levo 25-250 mg Odt] 1 each PO QID 07/14/18 Cholecalciferol (Vitamin D3) [Vitamin D3] 2,000 unit PO DAILY 07/14/18 Ketotifen Fumarate [Zaditor] 5 ml OP DAILY 07/14/18 Mag Hydrox/Al Hydrox/Simeth [Antacid Anti-Gas Liquid] 355 ml PO DAILY 07/14/18 Mv,Minerals/FA/Lycopene/Ginkgo [One Daily Men's 50+ Tablet] 1 each PO DAILY Mv-Mn/Herb#208/Beta-Sitosterol [Urinozinc Prostate Formula Tab] 1 cap PO DAILY AT SUPPER 07/14/18 Pantoprazole [Protonix Tab*] 40 mg PO DAILY 07/14/18 Sertraline [Zoloft*] 25 mg PO DAILY 07/14/18 Patient Discharge Instructions: 1. Patient will follow up with his PCP in 1 week to follow up this hospitalization. 2. Patient presented with syncopal episode. This was likely secondary to orthostatic hypotension. This may been related to medication-metoprolol. Patient has been worked up multiple times in the recent past for similar complaints. Apparently his blood pressure medication had been discontinued. In review of his meds yesterday metoprolol was still present. CT scan, MRI brain unremarkable. Patient seen and evaluated by neurology and cardiology. Cardiology recommends to discontinue any blood pressure medication including those that may significantly decreased his blood pressure including diuretics, vasodilators, and beta-melissa therapy. Patient will continue off medication at this time. If his symptoms continue, patient may require midodrine scheduled. Patient will need to continue with his compression stockings. Patient is continue to monitor for syncope. Fall precautions in place. Encouragement of good oral hydration and oral intake is also recommended. Recommend to follow up with cardiology, neurology and his PCP within the next 1-2 weeks to further monitor. 3. Patient seen and evaluated by a neurology as the patient has underlying Parkinson's disease and dementia. 1 of his medications Aricept may cause bradycardia. This has been discontinued as recommended by Neurology. Neurology recommends to continue with Namenda instead. Recommend to follow up with neurology as directed. 4. Patient with hyperlipidemia. Patient continue with his medication. 5. Patient with GERD. Patient continue with medication. 6. Patient with depression. Patient will continue with his medication. Diet: AHA Activity: Fall precautions Time spent managing pt's care (in minutes): 55
[2018-07-15] MEDS ORDERED: Ringers Lactate 1,000 ML IV ONE (15:48)
--- NOTE | 2018-07-16 06:23 | PN ---
Admitted on 07/14/2018. The patient was seen on 07/15/2018 as a followup. He was seen by Dr. Dumont yesterday for what sounds like orthostatic hypotension. We have decided to hold midodrine at this p oint. He continued to be hydrated. Today, he is not orthostatic. His blood pressure has improved. We do not recommend any further changes in therapy at this point. Mr. Louis is a do not resuscitate . Case was discussed with Dr. Vivas. He remained in sinus rhythm. He can certainly be discharged whenever it is okay with Dr. Vivas. No change in therapy at this point. NB/MODL Voice ID: [id number] Report ID: [id number]
--- NOTE | 2018-07-16 09:26 | EEG ---
CHART: [id number] TEST ID#: [id number] DATE OF STUDY: 07/15/2018 THE EEG WAS RECORDED PORTABLE IN THE PATIENTS ROOM ON A 17 CHANNEL MACHINE. ELECTRODES WERE APPLIED IN THE USUAL MANNER USING THE INTERNATIONAL 10-20 SYSTEM. THE WAKING BACKGROUND RHYTHM IN THIS RECORD CONSISTS OF FAIRLY WELL DEVELOPED AND FAIRLY WELL ORGANIZED WAVES OF 9 HZ., MAXIMAL IN THE POSTERIOR HEAD REGIONS WHICH ATTENUATE NORMALLY WITH EYE OPENING. IN DROWSINESS THE BACKGROUND DROPS TO 8 HZ. THERE ARE NO FOCAL OR LATERALIZING FEATURES. NO EPILEPTIFORM ACTIVITY APPEARS. SLEEP OCCURRED NATURALLY. NORMAL SLEEP PATTERNS ARE PRESENT. HYPERVENTILATION WAS NOT PERFORMED. PHOTIC STIMULATION PRODUCED FAIR DRIVING BILATERALLY. IMPRESSION: NORMAL EEG FOR THE AGE OF THE PATIENT IN [place], DROWSINESS AND SLEEP.
== END 2018-07-15 16:15 | disposition home health service (06) ==
LOC: ER 09:00 → ERHOLD 13:35 → 2ND 17:03
PROVIDERS: ADMIT Family Medicine; ATTEND Family Medicine
DX: I95.1 Orthostatic hypotension (principal); G20 Parkinson's disease; F02.80 Dementia in other diseases classified elsewhere, unspecified severity, without behavioral disturbance, psychotic disturbance, mood disturbance, and anxiety; E78.5 Hyperlipidemia, unspecified; K21.9 Gastro-esophageal reflux disease without esophagitis; F32.9 Major depressive disorder, single episode, unspecified; Z66 Do not resuscitate
CPT/HCPCS: 96361; 93005; 93306; 95819; 87088; 85025 ×2; 87086; 80048 ×2; 36415; 83735 ×2; 82550 ×2; 85610; 80061; 80076; 81003; 84484 ×3; 82553 ×2; 83690; 83880; 70450; 71250; 72125; 71045; 70551; 97116; 97163; 97166; 96360; 99285; J1650; J7030 ×3; G0378 ×2

== ENCOUNTER 2018-09-24 09:21 | Observation (INO) | payer MEDICARE ==
--- OUTSIDE RECORDS SUMMARY | 2018-09-24 10:01 | XMS REPORT | Clinical Summary ---
:1940 Author Organization [facility] [employer] CompanyBoundary Community HospitalStadion Money ManagementWalla Walla General Hospital Address [address] [place] [address] Care Team Providers Name Role Phone Rafa [...] tablet 0 07/01/2018 Discontinued ephedrine by mouth (LEANDRE-D 24) daily. 180-240 mg per 24 hr [...] New onset headache; Abby Hilloma, Parkinson's disease ([facility]); Hypotension, unspecified hypotension type; Joann, Yashash Volume depletion; D NSVT (nonsustained ventricular tachycardia) ([facility]) Lacho Díaz MD 06/27/2018 Orders Only General Internal Medicine 06/27/2018 Travel after 09/23/2017 Social History Tobacco Use Types Packs/Day Years [...] Taken Blood Pressure 106/55 07/01/2018 11:12 AM HOUSE REGISTRY RN Pulse 58 07/01/2018 11:12 AM HOUSE REGISTRY RN Temperature 35.9 C (96.6 F) 07/01/2018 11:12 AM HOUSE REGISTRY RN Respiratory Rate 22 07/01/2018 11:12 AM HOUSE REGISTRY RN Oxygen Saturation 100% 07/01/2018 11:12 AM HOUSE REGISTRY RN Inhaled Oxygen Concentration - - Weight 60.3 kg (133 lb) 06/28/2018 12:30 AM HOUSE REGISTRY RN Height 162.6 cm (5' 4") 06/28/2018 12:30 AM HOUSE REGISTRY RN Body Mass Index 22.83 06/28/2018 12:30 AM HOUSE REGISTRY RN Plan of Treatment Not on file Procedures Procedure Name Priority Date/Time Associated Comments Diagnosis RHYTHM STRIP - SCAN 07/04/2018 11:33 AM HOUSE REGISTRY RN REPORT OF PROCEDURE - 07/01/2018 4:04 ENDOSCOPY SCAN PM HOUSE REGISTRY RN COMPREHENSIVE METABOLIC Routine 07/01/2018 12:47 Results for this PANEL PM HOUSE REGISTRY RN procedure are in the results section. LIPASE Routine 07/01/2018 12:47 Results for this PM HOUSE REGISTRY RN procedure are in the results section. MAGNESIUM Routine 07/01/2018 12:47 Results for this PM HOUSE REGISTRY RN procedure are in the results section. ECHOCARDIOGRAM REPORT - 06/30/2018 9:21 SCAN PM HOUSE REGISTRY RN PERIPHERAL VASCULAR 06/30/2018 9:20 REPORT - SCAN PM HOUSE REGISTRY RN 2D ECHO W/ DOPPLER ONOFRE 06/30/2018 2:08 Results for this (CW/PW/COLOR) PM HOUSE REGISTRY RN procedure are in the results section. CBC W/PLT COUNT & AUTO Routine 06/30/2018 5:01 Results for this DIFFERENTIAL AM HOUSE REGISTRY RN procedure are in the results section. MAGNESIUM Routine 06/30/2018 5:01 Results for this AM HOUSE REGISTRY RN procedure are in the results section. CBC W/PLT COUNT & AUTO Routine 06/30/2018 5:01 Results for this DIFFERENTIAL AM HOUSE REGISTRY RN procedure are in the results section. BASIC METABOLIC PANEL Routine 06/30/2018 5:01 Results for this (7) AM HOUSE REGISTRY RN procedure are in the results section. CAROTID DOPPLER Routine 06/29/2018 1:50 Results for this BILATERAL PM HOUSE REGISTRY RN procedure are in the results section. CBC W/PLT COUNT & AUTO Routine 06/29/2018 5:18 Results for this DIFFERENTIAL AM HOUSE REGISTRY RN procedure are in the results section. MAGNESIUM Routine 06/29/2018 5:18 Results for this AM HOUSE REGISTRY RN procedure are in the results section. CBC W/PLT COUNT & AUTO Routine 06/29/2018 5:18 Results for this DIFFERENTIAL AM HOUSE REGISTRY RN procedure are in the results section. BASIC METABOLIC PANEL Routine 06/29/2018 5:18 Results for this (7) AM HOUSE REGISTRY RN procedure are in the results section. US ABDOMEN LIMITED Routine 06/29/2018 12:00 Results for this AM HOUSE REGISTRY RN procedure are in the results section. ECG 12-LEAD Routine 06/28/2018 10:01 Results for this AM HOUSE REGISTRY RN procedure are in the results section. BLOOD CULTURE Routine 06/28/2018 5:17 Results for this AM HOUSE REGISTRY RN procedure are in the results section. CBC W/PLT COUNT & AUTO Routine 06/28/2018 5:09 Results for this DIFFERENTIAL AM HOUSE REGISTRY RN procedure are in the results section. CBC W/PLT COUNT & AUTO Routine 06/28/2018 5:09 Results for this DIFFERENTIAL AM HOUSE REGISTRY RN procedure are in the results section. BASIC METABOLIC PANEL Routine 06/28/2018 5:09 Results for this (7) AM HOUSE REGISTRY RN procedure are in the results section. BLOOD CULTURE Routine 06/28/2018 5:09 Results for this AM HOUSE REGISTRY RN procedure are in the results section. CT BRAIN WITHOUT IV STAT 06/27/2018 11:35 Results for this CONTRAST PM HOUSE REGISTRY RN procedure are in the results section. URINALYSIS W/ REFLEX STAT 06/27/2018 9:28 Results for this URINE CULTURE PM HOUSE REGISTRY RN procedure are in the results section. XR CHEST 1 VIEW STAT 06/27/2018 8:41 Results for this PORTABLE/BEDSIDE PM HOUSE REGISTRY RN procedure are in the results section. ECG 12-LEAD Routine 06/27/2018 7:09 PM HOUSE REGISTRY RN Procedure Note - Interface, External Ris In - 06/27/2018 7:45 PM HOUSE REGISTRY RN Ventricular Rate 56 BPM Atrial Rate 56 BPM P-R Interval 128 ms QRS Duration 86 ms Q-T Interval 470 ms QTC Calculation(Bazett) 453 ms P [place] 1 degrees R [place] -3 degrees T [place] 39 degrees Junctional rhythm Abnormal ECG No previous ECGs available ECG 12-LEAD STAT 06/27/2018 7:09 PM HOUSE REGISTRY RN CBC W/PLT COUNT & AUTO STAT 06/27/2018 6:55 PM HOUSE REGISTRY RN Results for this DIFFERENTIAL procedure are in the results section. PHOSPHORUS STAT 06/27/2018 6:55 PM HOUSE REGISTRY RN MAGNESIUM STAT 06/27/2018 6:55 PM HOUSE REGISTRY RN HEPATIC FUNCTION PANEL STAT 06/27/2018 6:55 PM HOUSE REGISTRY RN LIPASE STAT 06/27/2018 6:55 PM HOUSE REGISTRY RN TROPONIN I STAT 06/27/2018 6:55 PM HOUSE REGISTRY RN B-TYPE NATRIURETIC FACTOR STAT 06/27/2018 6:55 PM HOUSE REGISTRY RN Results for this (BNP) procedure are in the results section. BASIC METABOLIC PANEL (7) STAT 06/27/2018 6:55 PM HOUSE REGISTRY RN CBC W/PLT COUNT & AUTO STAT 06/27/2018 6:55 PM HOUSE REGISTRY RN Results for this DIFFERENTIAL procedure are in the results section. ED ECG INTERPRETATION Routine 06/27/2018 6:41 PM HOUSE REGISTRY RN after 09/23/2017 Results RHYTHM STRIP - SCAN (07/04/2018 11:33 AM HOUSE REGISTRY RN) Narrative Performed At EKG-SCANNED (07/01/2018 4:04 PM HOUSE REGISTRY RN) Narrative Performed At Magnesium (07/01/2018 12:47 PM HOUSE REGISTRY RN)Only the most recent of4 resultswithin the time period is included. Magnesium 1.9 1.6 - 2.6 mg/dL [facility] Specimen Blood Performing Organization Address City/[facility] Phone Number [address] [address] [place] Lipase (07/01/2018 12:47 PM HOUSE REGISTRY RN)Only the most recent of2 resultswithin the time period is included. Lipase 521 (H) 8 - 78 U/L [facility] Specimen Blood Performing Organization Address City/[facility] Phone Number [address] [address] [place] Comprehensive metabolic panel (07/01/2018 12:47 PM HOUSE REGISTRY RN) Protein, Total 6.3 6.0 - 8.3 gm/dL [facility] Albumin 3.7 3.5 - 5.0 g/dL [facility] Alkaline Phosphatase 86 40 - 150 U/L [facility] Total Bilirubin 0.4 0.2 - 1.2 mg/dL [facility] Sodium 139 136 - 145 meq/L [facility] Potassium 4.1 3.5 - 5.1 meq/L [facility] Chloride 104 98 - 107 meq/L [facility] CO2 27 22 - 29 meq/L [facility] BUN 9 7 - 21 mg/dL [facility] Creatinine 1.06 0.57 - 1.25 mg/dL [facility] Glucose 104 70 - 105 mg/dL [facility] Calcium 9.1 8.4 - 10.2 mg/dL [facility] AST 19 5 - 34 U/L [facility] ALT <6 (L) 6 - 55 U/L [facility] EGFR 67Comment: ESTIMATED GFR mL/min/1.[address] [facility] IS NOT ACCURATE [facility] CREATININE CLEARANCE IN PREDICTING GLOMERULAR FILTRATION RATE. ESTIMATED GFR IS NOT APPLICABLE FOR DIALYSIS PATIENTS. Specimen Blood Performing Organization Address City/State/Zipcode Phone Number [facility] [address] [place] [address] [phone] CENTER ECHOCARDIOGRAM REPORT - SCAN (06/30/2018 9:21 PM HOUSE REGISTRY RN) Narrative Performed At PERIPHERAL VASCULAR REPORT - SCAN (06/30/2018 9:20 PM HOUSE REGISTRY RN) Narrative Performed At 2D Echo W/Doppler(CW/PW/Color) (06/30/2018 2:08 PM HOUSE REGISTRY RN) Ejection Fraction [facility] Exit41ON [facility] Specimen Narrative Performed At Transthoracic Echocardiography Report (TTE) [facility] Demographics Patient NameCARINA LOUIS Date of Study06/30/2018 Gender Male Visit [id number] Race Unknown [id number] Number Date of 1940 [facility] HOSPITALARMANI RIVAS Physician Age 78 year(s) SonographerEL Hope, RDCS,RVT,RDMS [...] External Ris In - 06/30/2018 5:20 PM HOUSE REGISTRY RN Transthoracic Echocardiography Report (TTE) Demographics Patient Name CARINA LOUIS Date of Study 06/30/2018 Gender Male Visit Number [id number] Race Unknown Room Number 2255 Number Date of 1940 Referring MICHELLE RIVAS Physician Age 78 year(s) [employer] Technician EL Hope, RDCS,RVT,RDMS Interpreting Odilon Velez MD [...] City/State/Zipcode Phone Number [facility] MKCKESSON CPACS CBC with platelet count + automated diff (06/30/2018 5:01 AM HOUSE REGISTRY RN)Only the most recent of4 resultswithin the time period is included. WBC 5.3 3.5 - 10.5 K/L [facility] RBC 3.16 (L) 4.63 - 6.08 M/L [facility] Hemoglobin 10.0 (L) 13.7 - 17.5 GM/DL [facility] Hematocrit 31.4 (L) 40.1 - 51.0 % [facility] MCV 99.4 (H) 79.0 - 92.2 fL [facility] MCH 31.6 25.7 - 32.2 pg [facility] MCHC 31.8 (L) 32.3 - 36.5 GM/DL [facility] RDW 12.6 11.6 - 14.4 % [facility] Platelets 148 (L) 150 - 450 K/CU MM [facility] MPV 9.8 9.4 - 12.4 fL [facility] nRBC 0 0 - 0 /100 WBC [facility] % Neutros 50 % [facility] % Lymphs 34 % [facility] % Monos 12 % [facility] % Eos 4 % [facility] % Baso 1 % [facility] # Neutros 2.60 1.78 - 5.38 K/L [facility] # Lymphs 1.76 1.32 - 3.57 K/L [facility] # Monos 0.65 0.30 - 0.82 K/L [facility] # Eos 0.20 0.04 - 0.54 K/L [facility] # Baso 0.03 0.01 - 0.08 K/L [facility] Immature Granulocytes-Relative 0 0 - 1 % [facility] Specimen Blood Performing Organization Address City/State/Zipcode Phone Number [facility] [address] [place] [address] CENTER Basic metabolic panel (06/30/2018 5:01 AM HOUSE REGISTRY RN)Only the most recent of4 resultswithin the time period is included. Sodium 138 136 - 145 meq/L [facility] Potassium 4.2 3.5 - 5.1 meq/L [facility] Chloride 107 98 - 107 meq/L [facility] CO2 25 22 - 29 meq/L [facility] BUN 9 7 - 21 mg/dL [facility] Creatinine 0.95 0.57 - 1.25 mg/dL [facility] Glucose 94 70 - 105 mg/dL [facility] Calcium 8.6 8.4 - 10.2 mg/dL [facility] EGFR 76Comment: ESTIMATED GFR IS mL/min/1.73 sq m [facility] NOT ACCURATE [facility] CLEARANCE IN PREDICTING GLOMERULAR FILTRATION RATE. ESTIMATED GFR IS NOT APPLICABLE FOR DIALYSIS PATIENTS. Specimen Blood Performing Organization Address City/State/Zipcode Phone Number [facility] [address] [place] [address] CENTER Carotid doppler bilateral (06/29/2018 1:50 PM HOUSE REGISTRY RN) Ejection [facility] ECHO HEARTLAB MKCKESSON CPACS Specimen Impressions Performed At Right Impression [facility] MKCKESSON CPACS 1. There is [...] Performed At LAB - Carotid Duplex Study [facility] MKCKESSON [facility] Demographics Patient NameCARINA LOUISDate of Study 06/29/2018 78 Visit [id number] Male of 1940 [id number] Physician [employer] Opt[employer] Technician Uziel Vogel RVT Physician Procedure Type of Study: Cerebral: Carotid, CAROTID DOPPLER, BILATERAL. Indications for Study:Right Carotid Bruit. Patient Status:Routine. Study Location:Portable. Technical Quality:Adequate visualization. Procedure Note Interface, External Ris In - 06/29/2018 10:14 PM [facility] LAB - Carotid Duplex Study Demographics Patient Name CARINA LOUIS Date of Study 06/29/2018 Age 78 Visit Number [id number] Gender Male Accession Number [id number] Date of 1940 Referring [facility] Room Number 2255 Physician [employer] Technician MORIAH Ramirez MD Procedure Type of Study: Cerebral: Carotid, [...] City/State/Zipcode Phone Number [facility] MKCKESSON [facility] US abdomen limited (06/29/2018 12:00 AM HOUSE REGISTRY RN) Specimen Narrative Performed At FINAL REPORT [facility] This examination was made available for my [...] MD Report Verified Date/Time:07/01/2018 11:30:04 Reading Location: [address] Ultrasound Reading Room Procedure Note Interface, External Ris In - 07/01/2018 11:32 AM HOUSE REGISTRY RN FINAL REPORT This examination was made available [...] Report Verified Date/Time: 07/01/2018 11:30:04 Reading Location: [place] [id number] Ultrasound Reading Room Performing Organization Address City/State/Zipcode Phone Number [facility] ECG 12 lead (06/28/2018 10:01 AM HOUSE REGISTRY RN)Only the most recent of2 resultswithin the time period is included. Specimen Narrative Performed At Ventricular Rate 74 BPM [place]oo Atrial Rate 74 BPM P-R Interval 136 ms QRS Duration 106 ms Q-T Interval 422 ms QTC Calculation(Bazett) 468 ms P [place] 40 degrees R [place] -5 degrees T [place] 45 degrees Normal sinus rhythm Normal ECG Confirmed by MIRZAI-TEHRANE, MD, MAJID ([id number]) on 06/28/2018 3:02:24 PM Procedure Note Interface, External Ris In - 06/28/2018 3:02 PM HOUSE REGISTRY RN Ventricular Rate 74 BPM Atrial Rate 74 BPM P-R Interval 136 ms QRS Duration 106 ms Q-T Interval 422 ms QTC Calculation(Bazett) 468 ms P [place] 40 degrees R [place] -5 degrees T [place] 45 degrees Normal sinus rhythm Normal ECG Confirmed by MD DOWNING MAJID ([id number]) on 06/28/2018 3:02:24 PM Performing Organization Address City/State/Zipcode Phone Number [email or web address] MUSE Blood Culture - Routine (Left Venipuncture) (06/28/2018 5:17 AM HOUSE REGISTRY RN)Only the most recent of2 resultswithin the time period is included. Result No growth in 5 days [facility] Specimen Blood Performing Organization Address City/[facility] [place] [address] brain without IV contrast (06/27/2018 11:35 PM HOUSE REGISTRY RN) Specimen Narrative Performed At FINAL REPORT IDINCU CT, BRAIN, WITHOUT CONTRAST CLINICAL INDICATION:Syncope/fainting COMPARISON: [...] MD Report Verified Date/Time:06/27/2018 23:42:40 Reading Location: [address] Neuro Reading Room Procedure Note Interface, External Ris In - 06/27/2018 11:44 PM HOUSE REGISTRY RN FINAL REPORT CT, BRAIN, WITHOUT CONTRAST CLINICAL [...] Report Verified Date/Time: 06/27/2018 23:42:40 Reading Location: [facility] [id number] Neuro Reading Room Performing Organization Address City/State/Zipcode Phone Number [facility] Urinalysis w/Microscopic + Reflex to Culture (06/27/2018 9:28 PM HOUSE REGISTRY RN) Color, UA Colorless [facility] Clarity, UA Clear [facility] Specific [place], UA 1.001 1.001 - 1.035 [facility] pH, UA 7.5 5.0 - 8.0 [facility] Protein, UA Negative Negative [facility] Glucose, UA Negative Negative [facility] Ketones, UA Negative Negative [facility] Bilirubin, UA Negative Negative [facility] Blood, UA Trace (A) Negative [facility] Nitrite, UA Negative Negative [facility] Leukocytes, UA Negative Negative [facility] Urobilinogen, UA 0.2 0.2 - 1.0 mg/dL [facility] RBC, UA 1 /HPF [facility] WBC, UA <1 /HPF [facility] Specimen Source [facility] Specimen Urine Performing Organization Address City/State/Zipcode Phone Number [facility] [address] [place] [address] CENTER XR chest 1 view portable / bedside (06/27/2018 8:41 PM HOUSE REGISTRY RN) Specimen Narrative Performed At FINAL REPORT [facility] INDICATION: LOSS OF CONSCIOUSNESS COMPARISON: None TECHNIQUE: Single frontal view of the chest. FINDINGS: Lungs and pleura: Clear lungs. No effusion. Heart and mediastinum: Normal heart size. Unremarkable mediastinal contours. Osseous structures: No acute abnormality. Other: None. IMPRESSION: No acute intrathoracic abnormality. Signed: Nick Gutierrez MD Report Verified Date/Time:06/27/2018 21:14:39 Reading Location: [address] Neuro Reading Room Procedure Note Interface, External Ris In - 06/27/2018 9:16 PM HOUSE REGISTRY RN FINAL REPORT INDICATION: LOSS OF CONSCIOUSNESS COMPARISON: None TECHNIQUE: Single frontal view of the chest. FINDINGS: Lungs and pleura: Clear lungs. No effusion. Heart and mediastinum: Normal heart size. Unremarkable mediastinal contours. Osseous structures: No acute abnormality. Other: None. IMPRESSION: No acute intrathoracic abnormality. Signed: Nick Gutierrez MD Report Verified Date/Time: 06/27/2018 21:14:39 Reading Location: [facility] C013 Neuro Reading Room Performing Organization Address City/State/Zipcode Phone Number [facility] Troponin I (06/27/2018 6:55 PM HOUSE REGISTRY RN) Troponin I <0.01 0.00 - 0.03 ng/mL [facility] Specimen Blood Narrative Performed At Troponin I (TnI) levels must be interpreted [facility] in the context of the presenting symptoms [...] disease, and persistent tachyarrhythmia. Performing Organization Address City/[facility] Phone Number [address] [phone] CENTER Phosphorus (06/27/2018 6:55 PM HOUSE REGISTRY RN) Phosphorus 2.9 2.3 - 4.7 mg/dL [facility] Specimen Blood Performing Organization Address [facility] Phone Number [address] [address] CENTER B-type Natriuretic Factor (BNP) (06/27/2018 6:55 PM HOUSE REGISTRY RN) BNP 94 0 - 100 pg/mL [facility] Specimen Blood Performing Organization Address [facility] Phone Number [address] [address] [phone] [place] Hepatic function panel (06/27/2018 6:55 PM HOUSE REGISTRY RN) Protein, Total 6.0 6.0 - 8.3 gm/dL [facility] Albumin 3.7 3.5 - 5.0 g/dL [facility] Total Bilirubin 0.5 0.2 - 1.2 mg/dL [facility] Bilirubin, Direct 0.3 0.1 - 0.5 mg/dL [facility] Alkaline Phosphatase 78 40 - 150 U/L [facility] AST 32 5 - 34 U/L [facility] ALT 6 6 - 55 U/L [facility] Specimen Blood Performing Organization Address City/State/Zipcode Phone Number [facility] [address] [place] [address] [phone] CENTER ECG/EKG Interpretation (06/27/2018 6:41 PM HOUSE REGISTRY RN) Narrative Performed At Radha Corado MD 06/30/20186:52 AM ECG/EKG Interpretation Date/Time: 06/27/2018 8:06 PM Performed by: Radha Corado MD Authorized by: Radha Corado MD This ECG was not compared with previous ECG(s).The ECG is interpreted as sinus bradycardia. Rate is bradycardic. ST segments abnormal. T waves abnormal. [place] is normal. Clinical Impression: non-specific ECG after 09/23/2017 Insurance Payer Benefit Plan / Group Subscriber ID Type Phone Address [employer] - MEDICARE AARP/MEDICARE COMPLETE xxxxxxxxx [facility] ([place]) [place] [address] Advance Directives Patient has advance care planning documents, and code status on file. For more information, please contact:AJAY Meyers martin[address] [phone] Code Status Date Activated Date Inactivated Comments Full Code 06/27/2018 10:12 PM 07/01/2018 6:29 PM This code status was determined by: Patient
[2018-09-24 10:02] LABS: Absolute Lymphocytes (CBC) 1.5 K/uL (0.7-4.9); Absolute Monocytes 0.4 K/uL (0.1-1.3); Absolute Neutrophil 2.2 K/uL (1.8-8.0); Basophils % 0.9 % (0-1.3); Eosinophils % 3.2 % (0-4.4); Hematocrit 34.4 % (39.6-49.0); Lymphocytes % 35.1 % (15.3-44.8); MPV 8.7 fL (7.6-11.3); Monocytes % 10.2 % (3.3-12.3); RBC Red Blood Cell Count 3.61 M/uL (4.33-5.43)
--- OUTSIDE RECORDS SUMMARY | 2018-09-24 10:02 | XMS REPORT ---
:1940 Author Organization [facility] Address [address] [place] [address] Care Team Providers Name Role Phone GHULAM ALANIS Unavailable Unavailable Payers Payer Name Policy Type Policy Number Effective Date Expiration Date Problems This patient has no known problems. Allergies, Adverse Reactions, Alerts Allergy Allergy Status Severity Reaction(s) Onset Inactive Treating Comments Name Type Date Date Clinician No Known DA Active U 2018-07 Allergies 00:00:0 0 Medications This patient has no known medications. Results Test Description Test Time Test Comments Text Results Atomic Results Result Comments TROPONIN-I 2018-07-29 09:26:00 Test Item Value Reference Range Comments TROPONIN-I (test code=TROPI) < 0.012 NG/ML 0.012-0.033 Q 6HRS. [id number] 03:54:00 Test Item Value Reference Range Comments TROPONIN-I (test code=TROPI) < 0.012 NG/ML 0.012-0.033 [id number] 21:09:00 Test Item Value Reference Range Comments TROPONIN-I (test code=TROPI) < 0.012 NG/ML 0.012-0.033 COMPREHENSIVE METABOLIC [id number] 17:26:00 Test Item Value Reference Range Comments SODIUM (test code=NA) 140 MMOL/L 137-145 POTASSIUM (test code=K) 4.4 MMOL/L 3.5-5.1 CHLORIDE (test code=CL) 104 MMOL/L 98-107 CARBON DIOXIDE (test code=CO2) 26 MMOL/L 22-30 GLUCOSE (test code=GLU) 89 MG/DL 74-106 BLOOD UREA NITROGEN (test 21 MG/DL 9-20 code=BUN) GLOMERULAR FILTRATION RATE > 60 Reporting units: ml/min/1.73 (test code=GFR) m2 (Modified MDRD Formula)Reference Range: > or=60 ml/min/1.73 m2 CREATININE (test code=CREAT) 1.10 MG/DL 0.66-1.25 TOTAL PROTEIN (test code=PROT) 7.2 G/DL 6.2-7.6 ALBUMIN (test code=ALB) 4.3 G/DL 3.5-5.0 CALCIUM (test code=CA) 9.3 MG/DL 8.4-10.2 BILIRUBIN TOTAL (test 0.4 MG/DL 0.2-1.3 code=BILT) SGOT/AST (test code=AST) 36 UNITS/L 17-59 SGPT/ALT (test code=ALT) 23 UNITS/L 21-72 ALKALINE PHOSPHATASE (test 86 UNITS/L 38-126 code=ALKP) [id number] 17:26:00 Test Item Value Reference Range Comments PHOSPHOROUS (test code=PHOS) 3.4 MG/DL 2.5-4.5 [id number] 17:26:00 Test Item Value Reference Range Comments MAGNESIUM (test code=MAG) 2.3 MG/DL 1.6-2.3 TROPONIN I [id number] 17:09:00 Test Item Value Reference Range Comments TROPONIN I RAPID (test code=TROPIRAP) 0.01 NG/ML 0.00-0.05 CBC W/AUTO [id number] 17:09:00 Test Item Value Reference Range Comments WHITE BLOOD CELL (test code=WBC) 4.6 K/MM3 3.8-9.8 RED BLOOD CELL (test code=RBC) 3.75 M/MM3 3.95-5.67 HEMOGLOBIN (test code=HGB) 11.8 G/DL 12.4-16.7 HEMATOCRIT (test code=HCT) 36.0 % 35.9-49.5 MEAN CELL VOLUME (test code=MCV) 96 fL 81.7-96.1 MEAN CELL HGB (test code=MCH) 31.5 pg 27.6-33.2 MEAN CELL HGB CONCETRATION (test code=MCHC) 32.8 % 32.9-35.5 RED CELL DISTRIBUTION WIDTH (test code=RDW) 12.8 % 12.1-15.2 PLATELET COUNT (test code=PLT) 166 K/MM3 129-368 MEAN PLATELET VOLUME (test code=MPV) 9.5 fl 7.4-10.4 NEUTROPHIL % (test code=NT%) 54.9 % 43-75 IMMATURE GRANULOCYTE % (test code=IG%) 0.2 % 0.0-2.0 LYMPHOCYTE % (test code=LY%) 34.7 % 14-44 MONOCYTE % (test code=MO%) 8.7 % 4-13 EOSINOPHIL % (test code=EO%) 1.1 % 0-6 BASOPHIL % (test code=BA%) 0.4 % 0-2 NUCLEATED RBC % (test code=NRBC%) 0.0 % 0-1.0 NEUTROPHIL # (test code=NT#) 2.51 K/mm3 2.0-7.6 IMMATURE GRANULOCYTE # (test code=IG#) 0.01 x10 3/uL 0-0.03 LYMPHOCYTE # (test code=LY#) 1.59 K/mm3 1.0-3.8 MONOCYTE # (test code=MO#) 0.40 K/mm3 0.1-0.8 EOSINOPHIL # (test code=EO#) 0.05 K/mm3 0.0-0.2 BASOPHIL # (test code=BA#) 0.02 K/mm3 0.0-0.2 NUCLEATED RBC # (test code=NRBC#) 0.00 K/mm3 0.0-0.1 - XR CHEST [id number] 16:56:00 Patient Name: CARINA SAMANIEGO Unit No: [id number] EXAMS: CPT CODE: [id number] XR CHEST 1V 25991 EXAMINATION: - XR CHEST 1V. LOCATION: B2. HISTORY: Chest Pain. COMPARISON: None. TECHNIQUE: Single AP view of the chest was obtained. FINDINGS: The heart is normal in size. Calcifications are seen atthe aortic arch. The lungs are clear. No acute osseous abnormality is identified. IMPRESSION: No acute cardiopulmonary abnormality. at 1656 Reported and signed by: Isabella Lim MD CC : Vic Humphries MD Technologist: Carolina Sherman, RT(R) Transcrpt Date/Tm/Trnsp: 07/28/2018 (750) CassPR7 Orig Print D/T: S: 07/28/2018 (7387) [facility] NAME: CARINA SAMANIEGO[address] [place] PHYS: [place] [address] : 1940 AGE: 78 SEX: M LOC: Andrea.ERS PHONE #: [phone] EXAM DATE: 2018 STATUS: PRE ER FAX #: [phone] RADIOLOGY NO: PAGE 1 Signed ReportBLOOD [id number] 11:02:00 Test Item Value Reference Range Comments CULTURE (BEAKER) (test hifr=0361) No growth in 5 days BLOOD [id number] 11:02:00 Test Item Value Reference Range Comments CULTURE (BEAKER) (test bbpt=9538) No growth in 5 days COMPREHENSIVE METABOLIC [id number] 13:41:00 Test Item Value Reference Range Comments TOTAL PROTEIN (BEAKER) 6.3 gm/dL 6.0-8.3 (test indi=789) ALBUMIN (BEAKER) (test 3.7 g/dL 3.5-5.0 vhyc=0988) ALKALINE PHOSPHATASE 86 U/L 40-150 (BEAKER) (test lqdb=894) BILIRUBIN TOTAL (BEAKER) 0.4 mg/dL 0.2-1.2 (test wsid=252) SODIUM (BEAKER) (test 139 meq/L 136-145 ilax=942) POTASSIUM (BEAKER) (test 4.1 meq/L 3.5-5.1 xwsz=015) CHLORIDE (BEAKER) (test 104 meq/L 98-107 npgy=573) CO2 (BEAKER) (test 27 meq/L 22-29 oaqi=291) BLOOD UREA NITROGEN 9 mg/dL 7-21 (BEAKER) (test hhnu=795) CREATININE (BEAKER) (test 1.06 mg/dL 0.57-1.25 ptng=438) GLUCOSE RANDOM (BEAKER) 104 mg/dL 70-105 (test lapc=936) CALCIUM (BEAKER) (test 9.1 mg/dL 8.4-10.2 cfyn=586) AST (SGOT) (BEAKER) (test 19 U/L 5-34 dqvl=387) ALT (SGPT) (BEAKER) (test < U/L 6-55 pils=692) EGFR (BEAKER) (test 67 mL/min/1.73 sq m ESTIMATED GFR IS NOT wwzg=3491) ACCURATE CREATININE CLEARANCE IN PREDICTING GLOMERULAR FILTRATION RATE. ESTIMATED GFR IS NOT APPLICABLE FOR DIALYSIS PATIENTS. [id number] 13:24:00 Test Item Value Reference Range Comments MAGNESIUM (BEAKER) (test sxfe=020) 1.9 mg/dL 1.6-2.6 [id number] 13:24:00 Test Item Value Reference Range Comments LIPASE (BEAKER) (test mmna=679) 521 U/L 8-78 U/S, ABDOMINAL, [id number] 11:30:00Abdomen limited area? Add comment if clarification [...] Benjamin Verified Date/Time: 07/01/2018 11:30:04 Reading Location: [facility] [id number] Ultrasound Reading Room [id number] 06:07: 00 Test Item Value Reference Range Comments MAGNESIUM (BEAKER) (test njrb=453) 2.1 mg/dL 1.6-2.6 BASIC METABOLIC [id number] 06:07:00 Test Item Value Reference Range Comments SODIUM (BEAKER) (test 138 meq/L 136-145 poma=243) POTASSIUM (BEAKER) (test 4.2 meq/L 3.5-5.1 uuoc=584) CHLORIDE (BEAKER) (test 107 meq/L 98-107 psqg=405) CO2 (BEAKER) (test 25 meq/L 22-29 abie=420) BLOOD UREA NITROGEN 9 mg/dL 7-21 (BEAKER) (test vuvy=237) CREATININE (BEAKER) (test 0.95 mg/dL 0.57-1.25 ckto=447) GLUCOSE RANDOM (BEAKER) 94 mg/dL 70-105 (test wkmr=061) CALCIUM (BEAKER) (test 8.6 mg/dL 8.4-10.2 ldfq=542) EGFR (BEAKER) (test 76 mL/min/1.73 sq m ESTIMATED GFR IS NOT znkx=1550) ACCURATE CREATININE CLEARANCE IN PREDICTING GLOMERULAR FILTRATION RATE. ESTIMATED GFR IS NOT APPLICABLE FOR DIALYSIS PATIENTS. CBC W/PLT COUNT & AUTO [id number] 06:04:00 Test Item Value Reference Range Comments WHITE BLOOD CELL COUNT (BEAKER) (test elbp=002) 5.3 K/ L 3.5-10.5 RED BLOOD CELL COUNT (BEAKER) (test qsga=983) 3.16 M/ L 4.63-6.08 HEMOGLOBIN (BEAKER) (test bnsj=929) 10.0 GM/DL 13.7-17.5 HEMATOCRIT (BEAKER) (test wfoq=526) 31.4 % 40.1-51.0 MEAN CORPUSCULAR VOLUME (BEAKER) (test topi=490) 99.4 fL 79.0-92.2 MEAN CORPUSCULAR HEMOGLOBIN (BEAKER) (test 31.6 pg 25.7-32.2 ycjw=877) MEAN CORPUSCULAR HEMOGLOBIN CONC (BEAKER) (test 31.8 GM/DL 32.3-36.5 pjfp=213) RED CELL DISTRIBUTION WIDTH (BEAKER) (test 12.6 % 11.6-14.4 opyt=829) PLATELET COUNT (BEAKER) (test fpfl=839) 148 K/CU MM 150-450 MEAN PLATELET VOLUME (BEAKER) (test iqjq=585) 9.8 fL 9.4-12.4 NUCLEATED RED BLOOD CELLS (BEAKER) (test 0 /100 WBC 0-0 vtme=723) NEUTROPHILS RELATIVE PERCENT (BEAKER) (test 50 % gkwn=972) LYMPHOCYTES RELATIVE PERCENT (BEAKER) (test 34 % cmkf=881) MONOCYTES RELATIVE PERCENT (BEAKER) (test 12 % pgqb=956) EOSINOPHILS RELATIVE PERCENT (BEAKER) (test 4 % miup=073) BASOPHILS RELATIVE PERCENT (BEAKER) (test 1 % usdb=038) NEUTROPHILS ABSOLUTE COUNT (BEAKER) (test 2.60 K/ L 1.78-5.38 zpmg=802) LYMPHOCYTES ABSOLUTE COUNT (BEAKER) (test 1.76 K/ L 1.32-3.57 odrz=009) MONOCYTES ABSOLUTE COUNT (BEAKER) (test 0.65 K/ L 0.30-0.82 dwib=454) EOSINOPHILS ABSOLUTE COUNT (BEAKER) (test 0.20 K/ L 0.04-0.54 piks=633) BASOPHILS ABSOLUTE COUNT (BEAKER) (test 0.03 K/ L 0.01-0.08 cker=592) IMMATURE GRANULOCYTES-RELATIVE PERCENT (BEAKER) 0 % 0-1 (test hzsq=5859) [id number] 10:30:00 Test Item Value Reference Range Comments MAGNESIUM (BEAKER) (test eztx=124) 1.9 mg/dL 1.6-2.6 CBC W/PLT COUNT & AUTO [id number] 07:07:00 Test Item Value Reference Range Comments WHITE BLOOD CELL COUNT (BEAKER) (test sbuz=550) 4.4 K/ L 3.5-10.5 RED BLOOD CELL COUNT (BEAKER) (test wtpb=470) 3.32 M/ L 4.63-6.08 HEMOGLOBIN (BEAKER) (test mzdt=660) 10.6 GM/DL 13.7-17.5 HEMATOCRIT (BEAKER) (test lvem=514) 32.9 % 40.1-51.0 MEAN CORPUSCULAR VOLUME (BEAKER) (test lliw=955) 99.1 fL 79.0-92.2 MEAN CORPUSCULAR HEMOGLOBIN (BEAKER) (test 31.9 pg 25.7-32.2 rglj=862) MEAN CORPUSCULAR HEMOGLOBIN CONC (BEAKER) (test 32.2 GM/DL 32.3-36.5 ukfq=352) RED CELL DISTRIBUTION WIDTH (BEAKER) (test 12.7 % 11.6-14.4 fbdz=934) PLATELET COUNT (BEAKER) (test wwfk=889) 145 K/CU MM 150-450 MEAN PLATELET VOLUME (BEAKER) (test bzof=542) 10.1 fL 9.4-12.4 NUCLEATED RED BLOOD CELLS (BEAKER) (test 0 /100 WBC 0-0 ramo=891) NEUTROPHILS RELATIVE PERCENT (BEAKER) (test 40 % skrv=217) LYMPHOCYTES RELATIVE PERCENT (BEAKER) (test 44 % hzdi=025) MONOCYTES RELATIVE PERCENT (BEAKER) (test 12 % egxc=737) EOSINOPHILS RELATIVE PERCENT (BEAKER) (test 4 % kdkx=148) BASOPHILS RELATIVE PERCENT (BEAKER) (test 1 % fzmz=103) NEUTROPHILS ABSOLUTE COUNT (BEAKER) (test 1.74 K/ L 1.78-5.38 wuyp=437) LYMPHOCYTES ABSOLUTE COUNT (BEAKER) (test 1.90 K/ L 1.32-3.57 ommw=465) MONOCYTES ABSOLUTE COUNT (BEAKER) (test 0.54 K/ L 0.30-0.82 cqfp=658) EOSINOPHILS ABSOLUTE COUNT (BEAKER) (test 0.16 K/ L 0.04-0.54 mven=173) BASOPHILS ABSOLUTE COUNT (BEAKER) (test 0.02 K/ L 0.01-0.08 jkzm=976) IMMATURE GRANULOCYTES-RELATIVE PERCENT (BEAKER) 0 % 0-1 (test patq=0890) BASIC METABOLIC [id number] 06:31:00 Test Item Value Reference Range Comments SODIUM (BEAKER) (test 138 meq/L 136-145 yzrw=969) POTASSIUM (BEAKER) (test 3.7 meq/L 3.5-5.1 icpb=049) CHLORIDE (BEAKER) (test 107 meq/L 98-107 blgh=238) CO2 (BEAKER) (test 25 meq/L 22-29 ynap=367) BLOOD UREA NITROGEN 9 mg/dL 7-21 (BEAKER) (test psmw=995) CREATININE (BEAKER) (test 1.01 mg/dL 0.57-1.25 xapy=542) GLUCOSE RANDOM (BEAKER) 81 mg/dL 70-105 (test krha=017) CALCIUM (BEAKER) (test 8.7 mg/dL 8.4-10.2 vgia=689) EGFR (BEAKER) (test 71 mL/min/1.73 sq m ESTIMATED GFR IS NOT aqef=4029) ACCURATE CREATININE CLEARANCE IN PREDICTING GLOMERULAR FILTRATION RATE. ESTIMATED GFR IS NOT APPLICABLE FOR DIALYSIS PATIENTS. BASIC METABOLIC [id number] 06:27:00 Test Item Value Reference Range Comments SODIUM (BEAKER) (test 139 meq/L 136-145 uzog=432) POTASSIUM (BEAKER) (test 4.1 meq/L 3.5-5.1 difo=133) CHLORIDE (BEAKER) (test 106 meq/L 98-107 wvez=454) CO2 (BEAKER) (test 26 meq/L 22-29 rrgg=909) BLOOD UREA NITROGEN 10 mg/dL 7-21 (BEAKER) (test teak=355) CREATININE (BEAKER) (test 0.98 mg/dL 0.57-1.25 rlto=528) GLUCOSE RANDOM (BEAKER) 78 mg/dL 70-105 (test vmds=712) CALCIUM (BEAKER) (test 9.5 mg/dL 8.4-10.2 urcq=719) EGFR (BEAKER) (test mL/min/1.73 sq m INSUFFICIENT CLINICAL DATA uega=8342) TO CALCULATE ESTIMATED GFR. CBC W/PLT COUNT & AUTO [id number] 05:45:00 Test Item Value Reference Range Comments WHITE BLOOD CELL COUNT (BEAKER) (test gdos=437) 4.5 K/ L 3.5-10.5 RED BLOOD CELL COUNT (BEAKER) (test txlo=258) 3.71 M/ L 4.63-6.08 HEMOGLOBIN (BEAKER) (test umdq=603) 11.8 GM/DL 13.7-17.5 HEMATOCRIT (BEAKER) (test yrnj=015) 36.0 % 40.1-51.0 MEAN CORPUSCULAR VOLUME (BEAKER) (test vgxu=251) 97.0 fL 79.0-92.2 MEAN CORPUSCULAR HEMOGLOBIN (BEAKER) (test 31.8 pg 25.7-32.2 mzzs=704) MEAN CORPUSCULAR HEMOGLOBIN CONC (BEAKER) (test 32.8 GM/DL 32.3-36.5 cmaz=536) RED CELL DISTRIBUTION WIDTH (BEAKER) (test 12.6 % 11.6-14.4 pkpl=664) PLATELET COUNT (BEAKER) (test ljex=548) 170 K/CU MM 150-450 MEAN PLATELET VOLUME (BEAKER) (test xwjd=996) 9.5 fL 9.4-12.4 NUCLEATED RED BLOOD CELLS (BEAKER) (test 0 /100 WBC 0-0 jvoa=947) NEUTROPHILS RELATIVE PERCENT (BEAKER) (test 50 % njlo=909) LYMPHOCYTES RELATIVE PERCENT (BEAKER) (test 37 % vcvp=771) MONOCYTES RELATIVE PERCENT (BEAKER) (test 10 % bsdu=525) EOSINOPHILS RELATIVE PERCENT (BEAKER) (test 3 % wauy=474) BASOPHILS RELATIVE PERCENT (BEAKER) (test 0 % ttdt=473) NEUTROPHILS ABSOLUTE COUNT (BEAKER) (test 2.23 K/ L 1.78-5.38 dokz=034) LYMPHOCYTES ABSOLUTE COUNT (BEAKER) (test 1.67 K/ L 1.32-3.57 czig=260) MONOCYTES ABSOLUTE COUNT (BEAKER) (test 0.44 K/ L 0.30-0.82 gibn=743) EOSINOPHILS ABSOLUTE COUNT (BEAKER) (test 0.15 K/ L 0.04-0.54 zvxr=791) BASOPHILS ABSOLUTE COUNT (BEAKER) (test 0.02 K/ L 0.01-0.08 ifwc=952) IMMATURE GRANULOCYTES-RELATIVE PERCENT (BEAKER) 0 % 0-1 (test dhrg=9793) CT, BRAIN, WITHOUT [id number] 23:42:00FINAL REPORT CT, BRAIN, WITHOUT CONTRAST CLINICAL [...] MDReport Verified Date/Time: 06/27/2018 23:42:40 Reading Location: [address] Neuro Reading Room URINALYSIS W/ REFLEX URINE [id number] 21:57:00 Test Item Value Reference Range Comments COLOR (BEAKER) (test duxx=396) Colorless CLARITY (BEAKER) (test uqdf=188) Clear SPECIFIC GRAVITY UA (BEAKER) (test real=076) 1.001 1.001-1.035 PH UA (BEAKER) (test nsgh=682) 7.5 5.0-8.0 PROTEIN UA (BEAKER) (test iknx=366) Negative Negative GLUCOSE UA (BEAKER) (test xakl=681) Negative Negative KETONES UA (BEAKER) (test gcuk=733) Negative Negative BILIRUBIN UA (BEAKER) (test yydm=107) Negative Negative BLOOD UA (BEAKER) (test kigx=425) Trace Negative NITRITE UA (BEAKER) (test bgou=918) Negative Negative LEUKOCYTE ESTERASE UA (BEAKER) (test epqi=161) Negative Negative UROBILINOGEN UA (BEAKER) (test frhq=241) 0.2 mg/dL 0.2-1.0 RBC UA (BEAKER) (test bnhf=730) 1 /HPF WBC UA (BEAKER) (test pzxx=509) < /HPF SOURCE(BEAKER) (test stwc=9465) RAD, CHEST, 1 VIEW, NON [id number] 21:14:00Reason for exam:->LOSS OF CONSCIOUSNESSShould this be performed at the bedside?->YesFINAL REPORT INDICATION: LOSS OF CONSCIOUSNESS COMPARISON: None TECHNIQUE: Single frontal view of the chest. FINDINGS: Lungs and pleura: Clear lungs. No effusion.Heart and mediastinum: Normal heart size. Unremarkable mediastinal contours.Osseous structures: No acute abnormality.Other: None. IMPRESSION: No acute intrathoracic abnormality. Signed: Christina Gutierrez MDReport Verified Date/Time: 06/27/2018 21:14:39 Reading Location: [address] Neuro Reading Room [id number] 20:36:00 Test Item Value Reference Range Comments MAGNESIUM (BEAKER) (test pmdq=584) 2.0 mg/dL 1.6-2.6 [id number] 20:36:00 Test Item Value Reference Range Comments PHOSPHORUS (BEAKER) (test dpcz=115) 2.9 mg/dL 2.3-4.7 TROPONIN [id number] 19:30:00 Test Item Value Reference Range Comments TROPONIN I (BEAKER) (test lvgi=419) < ng/mL 0.00-0.03 Troponin I (TnI) levels [...] Range Comments B-TYPE NATRIURETIC PEPTIDE (BEAKER) (test shoc=976) 94 pg/mL 0-100 BASIC METABOLIC [id number] 19:28:00 Test Item Value Reference Range Comments SODIUM (BEAKER) (test 138 meq/L 136-145 laac=889) POTASSIUM (BEAKER) (test 4.0 meq/L 3.5-5.1 egyo=305) CHLORIDE (BEAKER) (test 103 meq/L 98-107 kivq=969) CO2 (BEAKER) (test 29 meq/L 22-29 qnfa=274) BLOOD UREA NITROGEN 15 mg/dL 7-21 (BEAKER) (test lhoa=692) CREATININE (BEAKER) (test 1.15 mg/dL 0.57-1.25 hlri=786) GLUCOSE RANDOM (BEAKER) 117 mg/dL 70-105 (test voqs=916) CALCIUM (BEAKER) (test 9.0 mg/dL 8.4-10.2 qhil=822) EGFR (BEAKER) (test mL/min/1.73 sq m INSUFFICIENT CLINICAL DATA rbhy=4889) TO CALCULATE ESTIMATED GFR. [id number] 19:24:00 Test Item Value Reference Range Comments LIPASE (BEAKER) (test spqo=289) 229 U/L 8-78 HEPATIC FUNCTION [id number] 19:24:00 Test Item Value Reference Range Comments TOTAL PROTEIN (BEAKER) (test fmcl=951) 6.0 gm/dL 6.0-8.3 ALBUMIN (BEAKER) (test sqfy=9390) 3.7 g/dL 3.5-5.0 BILIRUBIN TOTAL (BEAKER) (test xpkr=513) 0.5 mg/dL 0.2-1.2 BILIRUBIN DIRECT (BEAKER) (test wdtx=836) 0.3 mg/dL 0.1-0.5 ALKALINE PHOSPHATASE (BEAKER) (test bumh=371) 78 U/L 40-150 AST (SGOT) (BEAKER) (test terp=467) 32 U/L 5-34 ALT (SGPT) (BEAKER) (test vhzv=354) 6 U/L 6-55 CBC W/PLT COUNT & AUTO [id number] 19:05:00 Test Item Value Reference Range Comments WHITE BLOOD CELL COUNT (BEAKER) (test donj=823) 4.6 K/ L 3.5-10.5 RED BLOOD CELL COUNT (BEAKER) (test uhom=371) 3.38 M/ L 4.63-6.08 HEMOGLOBIN (BEAKER) (test fhan=284) 10.8 GM/DL 13.7-17.5 HEMATOCRIT (BEAKER) (test obrc=387) 33.4 % 40.1-51.0 MEAN CORPUSCULAR VOLUME (BEAKER) (test lrah=673) 98.8 fL 79.0-92.2 MEAN CORPUSCULAR HEMOGLOBIN (BEAKER) (test 32.0 pg 25.7-32.2 aaoz=306) MEAN CORPUSCULAR HEMOGLOBIN CONC (BEAKER) (test 32.3 GM/DL 32.3-36.5 xhvc=770) RED CELL DISTRIBUTION WIDTH (BEAKER) (test 12.8 % 11.6-14.4 riph=759) PLATELET COUNT (BEAKER) (test lfye=565) 160 K/CU MM 150-450 MEAN PLATELET VOLUME (BEAKER) (test klnw=542) 9.2 fL 9.4-12.4 NUCLEATED RED BLOOD CELLS (BEAKER) (test 0 /100 WBC 0-0 uveu=590) NEUTROPHILS RELATIVE PERCENT (BEAKER) (test 52 % laoa=180) LYMPHOCYTES RELATIVE PERCENT (BEAKER) (test 35 % voqn=102) MONOCYTES RELATIVE PERCENT (BEAKER) (test 11 % incm=157) EOSINOPHILS RELATIVE PERCENT (BEAKER) (test 3 % coat=990) BASOPHILS RELATIVE PERCENT (BEAKER) (test 0 % gjff=866) NEUTROPHILS ABSOLUTE COUNT (BEAKER) (test 2.34 K/ L 1.78-5.38 tazx=340) LYMPHOCYTES ABSOLUTE COUNT (BEAKER) (test 1.57 K/ L 1.32-3.57 tuoy=809) MONOCYTES ABSOLUTE COUNT (BEAKER) (test 0.48 K/ L 0.30-0.82 kesw=698) EOSINOPHILS ABSOLUTE COUNT (BEAKER) (test 0.14 K/ L 0.04-0.54 agpv=544) BASOPHILS ABSOLUTE COUNT (BEAKER) (test 0.02 K/ L 0.01-0.08 mylu=935) IMMATURE GRANULOCYTES-RELATIVE PERCENT (BEAKER) 0 % 0-1 (test aufq=6557)
[2018-09-24 10:03] LABS: Protime INR 0.91
--- NOTE | 2018-09-24 10:13 | RAD REPORT ---
EXAM DESCRIPTION: CT - Head Brain Wo Cont - 09/24/2018 9:51 am CLINICAL HISTORY: MENTAL STATUS CHANGE Headache, drowsiness COMPARISON: Head Brain Wo Cont dated 02/04/2018; HEAD BRAIN W O CONTRAST dated 08/24/2013 TECHNIQUE: All CT scans are performed using dose optimization technique as appropriate and may inclu de automated exposure control or mA/KV adjustment according to patient size. FINDINGS: No intracranial hemorrhage, hydrocephalus or extra-axial fluid collection.No areas of brai n edema or evidence of midline shift. Mild right mastoid effusion. The paranasal sinuses are clear. The calvarium is intact. IMPRESSION: No acute intracranial abnormality. Mild right mastoid effusion
[2018-09-24 10:25] LABS: ALT/SGPT 9 U/L (12-78); AST/SGOT 27 U/L (15-37); Albumin 3.6 g/dL (3.4-5.0); Alkaline Phosphatase 81 U/L (45-117); BUN Blood Urea Nitrogen 18 mg/dL (7-18); Bicarbonate 29 mmol/L (21-32); Bilirubin Direct 0.1 mg/dL (0-0.2); Bilirubin Total 0.3 mg/dL (0.2-1.0); Glucose Level 91 mg/dL (74-106); Magnesium 2.4 mg/dL (1.8-2.4); NT PRO-BNP 690 pg/mL (<450); Potassium 4.2 mmol/L (3.5-5.1); Protein, Total 6.6 g/dL (6.4-8.2); Sodium Level 143 mmol/L (136-145); Troponin (Emerg Dept Use Only) < 0.02 ng/mL (0.0-0.045)
[2018-09-24 10:46] LABS: Anisocytosis 1+; Blood Morphology Comment NOTED (NOT SEEN); Platelet Estimate ADEQ; Poikilocytosis 1+; Urine White Blood Cell Casts OK
--- NOTE | 2018-09-24 10:59 | RAD REPORT ---
EXAM DESCRIPTION: RAD - Chest Single View - 09/24/2018 10:52 am CLINICAL HISTORY: DYSPNEA Chest pain. COMPARISON: No comparisonsChest Single View dated 07/14/2018; Chest Single View dated 06/24/2018; Ches t Single View dated 02/04/2018; CHEST SINGLE VIEW dated 08/24/2013 FINDINGS: Portable technique limits examination quality. The lungs are grossly clear. The heart is normal in size. No displaced fractures. IMPRESSION: No acute intrathoracic process suspected.
--- NOTE | 2018-09-24 11:33 | ER ---
Nurse's Notes [facility] Name: Sumanth Louis Age: 78 yrs Sex: Male : 1940 Arrival Date: 09/24/2018 Time: 09:26 Bed 4 Private MD: Diagnosis: Altered mental status, unspecified;Orthostatic hypotension;Syncope and collapse Presentation: 09/24 09:26 Presenting complaint: EMS states: Pt from home, family reports that pt was sitting at ph table eating breakfast acting normally and then they noticed that he had stopped talking and passed out, unresponsive for approx 3 min prior to EMS arrival and was still unconscious when they arrived w/ strong pulses present, initial BP 69/43, 20g IV placed to R wrist and approx 300 cc NS given, BP improved to 159/76, BGL 119, HR 65-75 NSR, 98% RA, reports that pt has a hx of syncopal episodes and is currently seeing neurologist. Transition of care: patient was not received from another setting of care. Onset of symptoms was September 24, 2018. Risk Assessment: Do you want to hurt yourself or someone else? Patient reports no desire to harm self or others. Initial Sepsis Screen: Does the patient meet any 2 criteria? Altered Mental Status. Does the patient have a suspected source of infection? No. Patient's initial sepsis screen is negative. Care prior to arrival: Medication(s) given: Normal saline infusion, 300 mL IV initiated. 20 GA, in the left wrist, Glucose check: 119. 09:26 Method Of Arrival: EMS: [facility] 09:26 Acuity: IRINA 1 ph Triage Assessment: 09:30 General: Appears in no apparent distress. well groomed, well developed, well nourished, sg Behavior is cooperative, appropriate for age. Neuro: Reports. Historical: - Allergies: 09:47 No Known Allergies; ph - Home Meds: 09:47 aspirin 81 mg Oral TbEC 1 tab once daily [Active]; atorvastatin 20 mg Oral tab 1 tab ph once daily [Active]; carbidopa-levodopa 25-250 mg Oral tab 1 tab 4 times per day [Active]; One-A-Day Men's Multivitamin 400-300 mcg Oral tab daily [Active]; sertraline 25 mg Oral tab 1 tab once daily [Active]; Urinozinc Prostate Formula Oral [Active]; fludrocortisone 0.1 mg oral tab 1 tab once daily [Active]; Vitamin D Oral 2000 unit daily [Active]; Vitamin C Oral [Active]; - PMHx: 09:38 Anemia; Anxiety; Bilateral deafness; Bilateral degeneration of macula; CHF; chronic ph pain syndrome; Dementia; Hernia; Hypertension; LOCALIZED EDEMA; osteoarthritis; PAD; Parkinsons; Rhinitis; right inguinal hernia; Vitamin D3 deficiency; - PSHx: 09:47 Appendectomy; ph - Immunization history:: Adult Immunizations unknown. - Social history:: Smoking status: Patient/guardian denies using tobacco. - Ebola Screening: : No symptoms or risks identified at this time. Screenin:48 Abuse screen: Denies threats or abuse. Denies injuries from another. Nutritional ph screening: No deficits noted. Tuberculosis screening: No symptoms or risk factors identified. Fall Risk No fall in past 12 months (0 pts). Secondary diagnosis (15 points) dementia, impaired mobility, IV access (20 points). Ambulatory Aid- None/Bed Rest/Nurse Assist (0 pts). Gait- Weak (10 pts.). Mental Status- Oriented to own ability (0 pts). Total Han Fall Scale indicates High Risk Score (45 or more points). Fall prevention measures have been instituted. Side Rails Up X 2 Placed Close to Nursing Station Frequent Obs/Assessments Occuring Family Present and informed to notify staff if the need to leave the bedside As available patient and family educated on Fall Prevention Program and Strategies. 10:40 The patient has not been NPO before screening. The patient is alert, able to follow sg commands. The patient does not exhibit slurred or garbled speech The patient is not exhibiting difficulty speaking. The patient does not exhibit difficulty understanding words. The patient is able to swallow own secretions with no drooling or need for suction. Patient tolerated one teaspoon of water. No drooling, immediate coughing, gurgling, or clearing of the throat was noted. The patient tolerated 90mL of water. No drooling, immediate coughing, gurgling, or clearing of the throat was noted. The patient passed the bedside swallow screening. Oral medications may be given as ordered. Contact Physician for further diet orders. Assessment: 09:30 Pain: Unable to use pain scale. FLACC scale score is 2 out of 10. not verbalizing at sg this time. Neuro: Level of Consciousness is awake, Facial symmetry appears normal. Cardiovascular: Heart tones S1 S2 present Capillary refill is brisk in bilateral fingers Patient's skin is warm and dry. Edema is 2+ to left midcalf, left ankle, left foot, left toes, right midcalf, right ankle, right foot and right toes Chest pain unable to assess at this time. Respiratory: Airway is patent Respiratory effort is even, unlabored, Respiratory pattern is regular, symmetrical. GI: Abdomen is round non-distended. : No signs and/or symptoms were reported regarding the genitourinary system. EENT: No signs and/or symptoms were reported regarding the EENT system. Derm: Skin is pink, warm \\T\\ dry. Musculoskeletal: No signs and/or symptoms reported regarding the musculoskeletal system. 09:30 General: Behavior is quiet. sg 09:41 Reassessment: pt daughter in law at bedside with patient, pt responsive to DIL question sg " do you know where you are" with the appropriate response from patient who stated " hospital" at this time. 10:42 Reassessment: Patient appears in no apparent distress at this time. Patient and/or sg family updated on plan of care and expected duration. Pain level reassessed. Patient is alert, oriented x 3, equal unlabored respirations, skin warm/dry/pink. Patient denies pain at this time. Patient states feeling better. Patient states symptoms have improved. 11:40 Reassessment: Patient appears in no apparent distress at this time. Patient and/or sg family updated on plan of care and expected duration. Pain level reassessed. Patient is alert, oriented x 3, equal unlabored respirations, skin warm/dry/pink. Patient states feeling better. Patient states symptoms have improved. 13:41 Reassessment: Reassessment: Patient appears in no apparent distress at this time. sg Patient and/or family updated on plan of care and expected duration. Pain level reassessed. Patient is alert, oriented x 3, equal unlabored respirations, skin warm/dry/pink. pt responding to questions, reports feeling ok just sleepy Patient states symptoms have improved. 14:00 Reassessment: Patient appears in no apparent distress at this time. Patient and/or sg family updated on plan of care and expected duration. Pain level reassessed. Patient is alert, oriented x 3, equal unlabored respirations, skin warm/dry/pink. Patient states feeling better. Vital Signs: 09:34 BP 158 / 74; Pulse 54; Resp 18; Temp 97.2; Pulse Ox 100% on R/A; Weight 68.04 kg; ph 10:30 BP 155 / 61; Pulse 59; Resp 17; Pulse Ox 100% on R/A; sg 11:30 BP 164 / 90; Pulse 63; Resp 17 S; Pulse Ox 100% on R/A; sg 13:30 BP 160 / 77; Pulse 66; Resp 17; Pulse Ox 99% on R/A; sg Terence Coma Score: 11:42 Eye Response: to voice(3). Verbal Response: none(1). Motor Response: localizes pain(5). jr8 Total: 9. ED Course: 09:26 Patient arrived in ED. ph 09:32 EKG done, by library technology instructor. reviewed by Rolly ROSS. at1 09:34 Triage completed. ph 09:35 Rolly Chowdary PA is PHCP. jr8 09:35 Wood Henry MD is Attending Physician. jr8 09:40 Initial lab(s) drawn, by ct, sent to lab. Missed attempt(s): 22 gauge in right forearm. sg Bleeding controlled, band aid applied, catheter tip intact. 09:41 Kd Ortiz, SOCORRO is Primary Nurse. sg 09:42 Patient has correct armband on for positive identification. Bed in low position. Call sg light in reach. Side rails up X2. Pulse ox on. NIBP on. Warm blanket given. Head of bed elevated. 09:47 Arm band placed on. ph 09:52 CT Head Brain wo Cont In Process Unspecified. EDMS 10:52 XRAY Chest (1 view) In Process Unspecified. EDMS 11:12 Urine collected: clean catch specimen, clear. ms 11:31 Sandrine Costa MD is Hospitalizing Provider. jr8 11:40 Assisted with urinal. sg 13:45 No provider procedures requiring assistance completed. Patient admitted, IV remains in sg place. intact, No redness/swelling at site. Administered Medications: 12:13 Drug: NS 0.9% 1000 ml Route: IV; Rate: 50 ml/hr; Site: left forearm; sg Outcome: 11:32 Decision to Hospitalize by Provider. jr8 13:48 Admitted to Tele accompanied by tech, via stretcher, room 414, with chart, Report sg called to SOCORRO Negrete 13:48 Condition: good 13:48 Discharge instructions given to patient, Instructed on the need for admit, safety practices, Demonstrated understanding of instructions. 13:58 Patient left the ED. iw Signatures: Dispatcher [employer] EDKd Simmons, RN RN Ange Buckley RN RN Linda Manning ms, Josh, CODY PA jr8 Steph Reyes, covered button maker EKG Tat1 Whitley Brock RN RN ph Corrections: (The following items were deleted from the chart) 09:49 09:34 BP 158 / 74; Pulse 54bpm; Resp 18bpm; Pulse Ox 100% RA; ph ph 14:17 09:30 Cardiovascular: Capillary refill is brisk in bilateral fingers Patient's skin is sg warm and dry. Chest pain unable to assess at this time. 14:18 13:41 Reassessment: [facility] 14:18 14:17 General: Behavior is quiet, [facility] 14:19 13:41 Reassessment: sg
--- NOTE | 2018-09-24 11:33 | EDPHYS ---
Physician Documentation [facility] Name: Sumanth Louis Age: 78 yrs Sex: Male : 1940 Arrival Date: 09/24/2018 Time: 09:26 Bed 4 Private MD: ED Physician Wood Henry HPI: 09/24 11:33 This 78 yrs old Male presents to ER via EMS with complaints of Syncope. jr8 11:33 The patient has experienced syncope, became unresponsive, lost consciousness. Onset: jr8 The symptoms/episode began/occurred acutely, just prior to arrival, today. Duration: This was a single episode, that lasted 5 minute(s). Context: the episode(s) was witnessed, by family, occurred at home, occurred while the patient was at rest, sitting, Just prior to the episode the patient experienced headache. Associated injury: The patient did not suffer any apparent associated injury. Associated signs and symptoms: Pertinent positives: altered mentation . Current symptoms: decreased level of consciousness, is arousable but tired. The patient has experienced similar episodes in the past, a few times. The patient has not recently seen a physician. Family stated that he has been having these episodes for sometime but getting worse and taking longer for him to respond. Historical: - Allergies: 09:47 No Known Allergies; ph - Home Meds: 09:47 aspirin 81 mg Oral TbEC 1 tab once daily [Active]; atorvastatin 20 mg Oral tab 1 tab ph once daily [Active]; carbidopa-levodopa 25-250 mg Oral tab 1 tab 4 times per day [Active]; One-A-Day Men's Multivitamin 400-300 mcg Oral tab daily [Active]; sertraline 25 mg Oral tab 1 tab once daily [Active]; Urinozinc Prostate Formula Oral [Active]; fludrocortisone 0.1 mg oral tab 1 tab once daily [Active]; Vitamin D Oral 2000 unit daily [Active]; Vitamin C Oral [Active]; - PMHx: 09:38 Anemia; Anxiety; Bilateral deafness; Bilateral degeneration of macula; CHF; chronic ph pain syndrome; Dementia; Hernia; Hypertension; LOCALIZED EDEMA; osteoarthritis; PAD; Parkinsons; Rhinitis; right inguinal hernia; Vitamin D3 deficiency; - PSHx: 09:47 Appendectomy; ph - Immunization history:: Adult Immunizations unknown. - Social history:: Smoking status: Patient/guardian denies using tobacco. - Ebola Screening: : No symptoms or risks identified at this time. ROS: 11:33 Unable to obtain ROS due to altered mental status, baseline dementia. jr8 Exam: 11:40 Eyes: Pupils equal round and reactive to light, extra-ocular motions intact. Lids and jr8 lashes normal. Conjunctiva and sclera are non-icteric and not injected. Cornea within normal limits. Periorbital areas with no swelling, redness, or edema. ENT: Nares patent. No nasal discharge, no septal abnormalities noted. Oropharynx with no redness, swelling, or masses, exudates, or evidence of obstruction, uvula midline. Mucous membranes moist. Neck: Trachea midline, no thyromegaly or masses palpated, and no cervical lymphadenopathy. Supple, full range of motion without nuchal rigidity Cardiovascular: Regular rate and rhythm with a normal S1 and S2. No gallops, murmurs, or rubs. Normal PMI, no JVD. No pulse deficits. Respiratory: Lungs have equal breath sounds bilaterally, clear to auscultation and percussion. No rales, rhonchi or wheezes noted. No increased work of breathing, no retractions or nasal flaring. Abdomen/GI: Soft, with normal bowel sounds. No distension or tympany. No guarding Back: Full range of motion. Skin: Warm, dry with normal turgor. Normal color with no rashes, no lesions, and no evidence of cellulitis. MS/ Extremity: Pulses equal, no cyanosis. Neurovascular intact. Full, normal range of motion. 11:42 Neuro: Orientation: Not oriented to person, place, time, situation, Mentation: slow to jr8 respond, unable to follow commands, Memory: unable to test, Cranial nerves: unable to test, Cerebellar function: unable to test, Motor: moves all fours, Sensation: no obvious gross deficits, seizure activity, is not displayed by the patient, Abnormal movements: there are no abnormal movements. Vital Signs: 09:34 BP 158 / 74; Pulse 54; Resp 18; Temp 97.2; Pulse Ox 100% on R/A; Weight 68.04 kg; ph 10:30 BP 155 / 61; Pulse 59; Resp 17; Pulse Ox 100% on R/A; sg 11:30 BP 164 / 90; Pulse 63; Resp 17 S; Pulse Ox 100% on R/A; sg 13:30 BP 160 / 77; Pulse 66; Resp 17; Pulse Ox 99% on R/A; sg [place] Coma Score: 11:42 Eye Response: to voice(3). Verbal Response: none(1). Motor Response: localizes pain(5). jr8 Total: 9. MDM: 09:35 Patient medically screened. jr8 11:29 Data reviewed: vital signs, nurses notes, lab test result(s), EKG, radiologic studies, jr8 CT scan, MRI, plain films. Data interpreted: Pulse oximetry: on room air is 100 %. Interpretation: normal. Counseling: I had a detailed discussion with the patient and/or guardian regarding: the historical points, exam findings, and any diagnostic results supporting the discharge/admit diagnosis, lab results, radiology results, the need for further work-up and treatment in the hospital. Physician consultation: Sandrine Costa MD was called at 11:30, was contacted at 11:30, regarding admission, to the telemetry unit. consult, patient's condition, and will see patient in ED. ED course: Dr. Grimes consulted and wants MRI done and to have patient evaluated over night with light hydration . 11:45 ED course: Patient more responsive and will follow commands now but still will not jr8 speak and is generally weak. 09/24 09:37 Order name: Glucose, Ancillary Testing; Complete Time: 10: EDPR 09/24 09:39 Order name: Basic Metabolic Panel; Complete Time: 10:8 09/24 09:39 Order name: CBC with Diff; Complete Time: 10:54 jr8 09/24 09:39 Order name: LFT's; Complete Time: 10:8 09/24 09:39 Order name: Magnesium; Complete Time: 10:8 09/24 09:39 Order name: NT PRO-BNP; Complete Time: 10:09/24 09:39 Order name: PT-INR; Complete Time: 10:09/24 09:39 Order name: Troponin (emerg Dept Use Only); Complete Time: 10:8 09/24 09:39 Order name: XRAY Chest (1 view); Complete Time: 11:09/24 09:39 Order name: CT Head Brain wo Cont; Complete Time: 10:26 [facility] 09/24 10:08 Order name: CBC Smear Scan; Complete Time: 10:54 [facility] 09/24 11:24 Order name: Urine Dipstick--Ancillary (enter results); Complete Time: 12:07 09/24 11:33 Order name: MRI - Brain Wo Cont [facility] 09/24 13:23 Order name: MRI; Complete Time: 13:39 [facility] 09/24 09:39 Order name: EKG; Complete Time: 09:41 [facility] 09/24 09:39 Order name: Cardiac monitoring; Complete Time: 09:50 [facility] 09/24 09:39 Order name: EKG - Nurse/Tech; Complete Time: : [facility] 09/24 09:39 Order name: IV Saline Lock; Complete Time: [facility] 09/24 09:39 Order name: Labs collected and sent; Complete Time: [facility] 09/24 09:39 Order name: O2 Per Protocol; Complete Time: [facility] 09/24 09:39 Order name: O2 Sat Monitoring; Complete Time: : Administered Medications: 12:13 Drug: NS 0.9% 1000 ml Route: IV; Rate: 50 ml/hr; Site: left forearm; sg Disposition: 15:40 Co-signature as Attending Physician, Wood Henry MD I agree with the assessment and abhi plan of care. Disposition: 09/24/18 11:32 Hospitalization ordered by Sandrine Costa for Observation. Preliminary diagnosis are Altered mental status, unspecified, Orthostatic hypotension, Syncope and collapse. - Bed requested for Telemetry/MedSurg (observation). - Status is Observation. iw - Condition is Stable. - Problem is new. - Symptoms have improved. UTI on Admission? No Signatures: Dispatcher [employer] [facility] Verna Hwang Steven, RN RN sg Anderson, Corey, MD MD cha Williams, Irene, RN RN Rolly Chowdary PA PA [facility] Whitley Brock RN RN ph Corrections: (The following items were deleted from the chart) 11:45 11:40 Eyes: Pupils equal round and reactive to light, extra-ocular motions intact. Lids jr8 and lashes normal. Conjunctiva and sclera are non-icteric and not injected. Cornea within normal limits. Periorbital areas with no swelling, redness, or edema. ENT: Nares patent. No nasal discharge, no septal abnormalities noted. Tympanic membranes are normal and external auditory canals are clear. Oropharynx with no redness, swelling, or masses, exudates, or evidence of obstruction, uvula midline. Mucous membranes moist. Neck: Trachea midline, no thyromegaly or masses palpated, and no cervical lymphadenopathy. Supple, full range of motion without nuchal rigidity, or vertebral point tenderness. No Meningismus. Cardiovascular: Regular rate and rhythm with a normal S1 and S2. No gallops, murmurs, or rubs. Normal PMI, no JVD. No pulse deficits. Respiratory: Lungs have equal breath sounds bilaterally, clear to auscultation and percussion. No rales, rhonchi or wheezes noted. No increased work of breathing, no retractions or nasal flaring. Abdomen/GI: Soft, non-tender, with normal bowel sounds. No distension or tympany. No guarding or rebound. No evidence of tenderness throughout. Back: No spinal tenderness. No costovertebral tenderness. Full range of motion. Skin: Warm, dry with normal turgor. Normal color with no rashes, no lesions, and no evidence of cellulitis. jr8 12:59 11:32 Hospitalization Ordered by Sandrine Costa MD for Observation. Preliminary diagnosis bd is Altered mental status, unspecified; Orthostatic hypotension; Syncope and collapse. Bed requested for Telemetry/MedSurg (observation). Status is Observation. Condition is Stable. Problem is new. Symptoms have improved. UTI on Admission? No. jr8 13:58 12:59 09/24/2018 11:32 Hospitalization Ordered by Sandrine Costa MD for Observation. iw Preliminary diagnosis is Altered mental status, unspecified; Orthostatic hypotension; Syncope and collapse. Bed requested for Telemetry/MedSurg (observation). Status is Observation. Condition is Stable. Problem is new. Symptoms have improved. UTI on Admission? No. bd
[2018-09-24 11:40] LABS: Urine Blood NEGATIVE (NEG); Urine Glucose NEGATIVE (NEG); Urine Protein NEGATIVE (NEG); Urine pH 7.5 (5.0-7.0)
[2018-09-24] MEDS ORDERED: NA CHLORIDE 0.9% 500 ML ONE (12:06)
--- NOTE | 2018-09-24 13:21 | RAD REPORT ---
EXAM DESCRIPTION: MRI - Brain Wo Cont - 09/24/2018 1:09 pm CLINICAL HISTORY: MENTAL STATUS CHANGE Headache, drowsiness, alteration of awareness COMPARISON: Head Brain Wo Cont dated 09/24/2018; Brain Wo Cont dated 07/14/2018 TECHNIQUE: Multi-sequence, multiplanar MR imaging of the brain was performed without contrast. FINDINGS: No intracranial hemorrhage, hydrocephalus or extra-axial fluid collections.Mild generalize d brain atrophy is seen with mild periventricular and deep white matter chronic microvascular ischemi c changes. No edema or shift of midline structures. No findings to suspect brain mass. DWI is negativ e for acute CVA. Midline structures are normally formed. Mild right mastoid effusion. IMPRESSION: Negative for acute CVA or other acute intracranial abnormality. Mild right mastoid effusion.
[2018-09-24] MEDS ORDERED: ONDANSETRON 4 MG/2 ML VIAL IV PRN (14:36)
[2018-09-24] MEDS ORDERED: ACETAMINOPHEN 500 MG TAB PO PRN (14:36)
[2018-09-24 15:12] VITALS: BMI 25.7
[2018-09-24] MEDS: NA CHLORIDE 0.9% 1,000 ML IV SCH (15:38)
[2018-09-24] MEDS: ENOXAPARIN 40 MG/0.4 ML SQ SCH (15:38)
[2018-09-24 16:46] LABS: Urine Appearance CLEAR; Urine Bilirubin NEGATIVE (NEG); Urine Blood NEGATIVE (NEG); Urine Color YELLOW; Urine Glucose NEGATIVE (NEG); Urine Protein NEGATIVE (NEG); Urine Specific Gravity <=1.005 (1.005-1.030); Urine Urobilinogen 0.2 mg/dL (0.2-1.0); Urine pH 7.5 (5.0-7.0)
[2018-09-24 16:48] LABS: Urine Microscopic Reflex NO UMIC
[2018-09-24] MEDS ORDERED: PNEUMOCOCCAL VACCINE 0.5 ML IMVAC ONE (17:00)
[2018-09-24] MEDS ORDERED: LEVODOPA PO SCH (17:00)
[2018-09-24] MEDS ORDERED: CARBIDOPA PO SCH (17:00)
[2018-09-24] MEDS: CARBIDOPA LEVO PO SCH (20:47)
[2018-09-24] MEDS: MEMANTINE HCL 5 MG PO SCH (20:48)
[2018-09-24] MEDS ORDERED: ATORVASTATIN 20 MG TAB PO SCH ×2 (21:00)
[2018-09-24] MEDS ORDERED: THIAMINE 200 MG/2 ML INJ IVP ONE (21:00)
[2018-09-24] MEDS ORDERED: CARBIDOPA/LEVODOPA 25/250 TAB PO SCH (21:00)
[2018-09-24] MEDS ORDERED: MEMANTINE HCL 10 MG TABLET PO SCH (21:00)
[2018-09-24] MEDS ORDERED: HOME MED 1 EA UNK (Memantine Hcl [Memantine Hcl] 5 MG) PO SCH (21:00)
[2018-09-25 04:27] LABS: Absolute Lymphocytes (CBC) 1.7 K/uL (0.7-4.9); Absolute Monocytes 0.5 K/uL (0.1-1.3); Basophils % 0.7 % (0-1.3); Eosinophils % 3.4 % (0-4.4); Hematocrit 32.8 % (39.6-49.0); Lymphocytes % 38.2 % (15.3-44.8); MPV 8.5 fL (7.6-11.3); Monocytes % 12.2 % (3.3-12.3); RBC Red Blood Cell Count 3.46 M/uL (4.33-5.43)
[2018-09-25 04:35] LABS: Albumin 3.4 g/dL (3.4-5.0); Bilirubin Total 0.3 mg/dL (0.2-1.0); Potassium 3.9 mmol/L (3.5-5.1); Protein, Total 6.1 g/dL (6.4-8.2)
[2018-09-25] MEDS: NA CHLORIDE 0.9% 1,000 ML IV SCH (05:43)
[2018-09-25] MEDS: CARBIDOPA LEVO PO SCH ×2 (08:50→12:23)
[2018-09-25] MEDS: MEMANTINE HCL 5 MG PO SCH (08:51)
[2018-09-25] MEDS: ENOXAPARIN 40 MG/0.4 ML SQ SCH (08:52)
[2018-09-25] MEDS ORDERED: SERTRALINE HCL 50 MG TAB PO SCH ×2 (09:00)
[2018-09-25] MEDS ORDERED: FLUDROCORTISONE 0.1 MG TAB PO SCH ×2 (09:00)
[2018-09-25] MEDS ORDERED: ASPIRIN EC 81 MG TAB PO SCH ×2 (09:00)
[2018-09-25 09:01] VITALS: O2SAT 95
--- NOTE | 2018-09-25 11:36 | EKG ---
Test Date: 2018-09-24 Test Time: 09:29:36 Ppap Coordinator: CARL MEASUREMENT RESULTS: Intervals: Rate: 57 TX: 148 QRSD: 92 QT: 456 QTc: 443 [place]: P: 46 TX: 148 QRS: 0 T: 55 INTERPRETIVE STATEMENTS: Sinus bradycardia Otherwise normal ECG Compared to ECG 07/14/2018 09:46:40 Ventricular premature complex(es) no longer present Electronically Signed On 09-25-18 07:38:25 CDT by Rex Dumont
--- NOTE | 2018-09-25 11:42 | HP ---
Date of Admission: 09/24/2018 Code Status: Do not resuscitate. Chief Complaint: Syncopal episode. Top Polisher: Dr. Grimes with Neurology. Primary Care Physician: Dr. Barnes. History Of Present Illness: The patient is an 78-year-old male with past medical history of Parkinso n's disease, dementia, macular degeneration, skin cancer, GERD, hyperlipidemia, who was in his usual state of health until day of admission when the patient had sudden episode of syncope. The patient w as eating his breakfast, had gotten up to go down the hallway, became lightheaded, stated that he wou ld not be able to make it across and his family members sat him down on a chair. The patient lost co nsciousness briefly. There was no seizure-type activity, no tongue biting, eye rolling, or tonic-ed cha movement. Did not have any urinary incontinence. The next thing the patient recalls is being in the ambulance, being brought to the hospital. The patient's symptoms are constant, moderate, progre ssively worsening. He has had previous syncopal episodes and he does take fludrocortisone to help hi s blood pressure. In the ambulance, his blood pressure was low in the 60s systolic. In terms of his medications, the patient accidentally took his nighttime medications this morning; however, none of the nighttime medications were antihypertensives. The patient in the ER was found to be confused, woodall d altered mental status. His lab workup was essentially unremarkable. UA was negative. CT scan of the head was done, which did not show any acute abnormalities, did show mild right mastoid effusion. The patient was given normal saline bolus 0.5 L and then referred for admission. When seen in the E R, he was more awake and alert according to the family. Dr. Grimes with Neurology had been consulted by the ER. Past Medical History: Parkinson's disease, dementia, macular degeneration, skin cancer of left cheek and right ear, gastroesophageal reflux disease, hyperlipidemia. Surgical History: Appendectomy. Allergies: NO KNOWN DRUG ALLERGIES. Medications: List reviewed. Social History: The patient never smoked. No alcohol use. The patient needs assistance with his ac tivities of daily living. Lives at home with his son and [id number]. Family History: Noncontributory in this 78-year-old gentleman. Review of Systems: Ten-point system reviewed, negative except as per HPI. Physical Examination: Vital Signs: Blood pressure in the ER was 158/74, pulse 54, respirations 18, temperature 97.2, O2 10 0% on room air. General: Awake, alert, oriented x2, elderly male, ill appearing. HEENT: Normocephalic, atraumatic. PERRLA. EOMI. Dry mucous membranes. Oropharynx is clear. Conj unctivae are anicteric. Neck: Supple. No JVD. Trachea midline. CV: S1, S2. Regular rate and rhythm. Peripheral pulses present. Respiratory: Moving air well bilaterally. No wheezing or stridor. Gastrointestinal: Abdomen is soft, nontender, nondistended. Positive bowel sounds. No guarding or rigidity. Extremities: No clubbing, cyanosis, or edema. No calf tenderness. Neuro: Cranial nerves 2-12 intact grossly. No facial asymmetry. The patient has some weakness in t he upper extremity on the left, 3+/5. Left upper extremity and bilateral lower extremities are 5/5. Skin: No rashes. The patient has multiple ecchymoses spread around his upper and lower extremities. No contusions. Psych: Mood is okay. Affect is flat. Insight and judgment are good. Laboratory Data: UA is negative. Sodium 143, potassium 4.2, chloride 109, CO2 29, BUN 18, creatinin e 1.08, glucose 91, calcium 8.4, magnesium 2.4. Troponin less than 0.02. BNP 690. INR 0.91. WBC 4 .3, H and H 11.3 and 34.4, platelets 134, neutrophils 50%. Head CT scan shows no acute intracranial abnormality. Right mastoid effusion is present. Chest x-ray, I personally reviewed, shows no acute intrathoracic process suspected. Assessment And Plan: An 78-year-old male with: 1.Syncopal episode, likely neurogenic versus cardiogenic cause. The patient was found to be hypoten sive when EMS brought him over to the ER. The patient does take fludrocortisone. He did take a dose today. We will check orthostatic vital signs. The patient has had recent carotid artery ultrasound in [facility] in June, showed some plaque, but no hemodynamically significant stenosis. We will obtain and review records once available. Dr. Grimes with Neurology has been consulted. He recommends MRI of the brain to rule out CVA. The patient was seen by Dr. Urbina recently, had a Hol ter monitor. The patient is unaware of the test results, however, has not been called to state that the study was abnormal. No history of cardiac arrhythmias. 2.Acute metabolic encephalopathy, improving. The patient is much more alert and awake since his syn copal episode, however, not quite back to baseline. UA is negative. Chest x-ray is clear. No other apparent source of infection. We will continue to monitor. We will place on fall precautions. 3.Parkinson's disease. We will resume home medications as appropriate. 4.Dementia. 5.Macular degeneration, stable. 6.History of skin cancer, stable. 7.Gastroesophageal reflux disease. We will continue with PPI. 8.Mixed hyperlipidemia. Continue statin. 9.DVT prophylaxis with Lovenox. Admit the patient to med-surg, place as observation. Purmoltb-ni-yne is the medical power of attorne y. The patient has living will and has out of hospital DNR. The patient wishes to continue do not r esuscitate status in the hospital. Case discussed with case investigator, Daja Lopez. /ANNIE Voice ID: [id number]
--- NOTE | 2018-09-25 13:58 | P.DS ---
Admission Date: 09/24/18 Discharge Date: 09/25/18 Disposition: ROUTINE DISCHARGE Discharge Condition: FAIR Consultations: Dr. Grimes neurology Brief History of Present Illness: The patient is an 78-year-old male with past medical history of Parkinson's disease, dementia, macular degeneration, skin cancer, GERD, hyperlipidemia, who was in his usual state of health until day of admission when the patient had sudden episode of syncope. The patient was eating his breakfast, had gotten up to go down the hallway, became lightheaded, stated that he would not be able to make it across and his family members sat him down on a chair. The patient lost consciousness briefly. There was no seizure-type activity, no tongue biting, eye rolling, or tonic-clonic movement. Did not have any urinary incontinence. The next thing the patient recalls is being in the ambulance, being brought to the hospital. The patient's symptoms are constant, moderate, progressively worsening. He has had previous syncopal episodes and he does take fludrocortisone to help his blood pressure. In the ambulance, his blood pressure was low in the 60s systolic. In terms of his medications, the patient accidentally took his nighttime medications this morning; however, none of the nighttime medications were antihypertensives. The patient in the ER was found to be confused, had altered mental status. His lab workup was essentially unremarkable. UA was negative. CT scan of the head was done, which did not show any acute abnormalities, did show mild right mastoid effusion. The patient was given normal saline bolus 0.5 L and then referred for admission. When seen in the ER, he was more awake and alert according to the family. Dr. Grimes with Neurology had been consulted by the ER. Hospital Course: Patient is an 78-year-old male with Parkinson's disease who comes in with syncopal episode. Patient had recent admission to the hospital with similar symptoms and workup was done at that time. Patient's workup revealed positive orthostatics hypertension. Patient was educated regarding waiting before changing positions. Patient also needs to remain well hydrated. Patient is a already on Florinef. Patient's primary neurologist Dr. Grimes was consulted. He recommended MRI of the brain to rule out CVA. CVA did not show any acute abnormalities. There was a right-sided mastoid effusion which is chronic. This can be followed up by the primary care physician or ENT as an outpatient. Patient's mental status improved with IV fluid hydration. Patient was then cleared for discharge by neurology. Patient was sent home in a stable condition. Assessment And Plan: An 78-year-old male with: 1. Syncopal episode, likely due to orthostatic hypotension 2. Acute metabolic encephalopathy, resolved back to baseline 3. Parkinson's disease. Stable 4. Dementia. Stable 5. Macular degeneration, stable. 6. History of skin cancer, stable. 7. Gastroesophageal reflux disease. We will continue with PPI. 8. Mixed hyperlipidemia. Continue statin. Vital Signs/Physical Exam: Temp Pulse Resp BP Pulse Ox 97.7 F 61 18 189/86 H 100 09/25/18 12:00 09/25/18 12:00 09/25/18 12:00 09/25/18 12:00 09/25/18 12:00 General: Alert, In no apparent distress, Oriented x3 HEENT: Atraumatic, PERRLA, EOMI Neck: Supple, JVD not distended Respiratory: Clear to auscultation bilaterally, Normal air movement Cardiovascular: Normal pulses, Regular rate/rhythm, Normal S1 S2, Edema Gastrointestinal: Normal bowel sounds, Soft and benign, Non-distended, No tenderness Musculoskeletal: No tenderness Integumentary: No rashes Neurological: Normal strength at 5/5 x4 extr, Normal tone, Cranial nerves 3-12 intact, Normal affect, Abnormal speech Laboratory Data at Discharge: WBC 4.4 K/uL (4.3-10.9) 09/25/18 03:29 Hgb 10.9 g/dL (13.6-17.9) L 09/25/18 03:29 Hct 32.8 % (39.6-49.0) L 09/25/18 03:29 Plt Count 129 K/uL (152-406) L 09/25/18 03:29 PT 10.8 SECONDS (9.5-12.5) 09/24/18 09:40 INR 0.91 09/24/18 09:40 Sodium 143 mmol/L (136-145) 09/25/18 03:29 Potassium 3.9 mmol/L (3.5-5.1) 09/25/18 03:29 BUN 20 mg/dL (7-18) H 09/25/18 03:29 Creatinine 1.04 mg/dL (0.55-1.3) 09/25/18 03:29 Glucose 82 mg/dL (74-106) 09/25/18 03:29 Magnesium 2.4 mg/dL (1.8-2.4) 09/24/18 09:40 Total Bilirubin 0.3 mg/dL (0.2-1.0) 09/25/18 03:29 AST 21 U/L (15-37) 09/25/18 03:29 ALT 10 U/L (12-78) L 09/25/18 03:29 Alkaline Phosphatase 81 U/L (45-117) 09/25/18 03:29 Home Medications: Ascorbic Acid/Ascorbate Sodium [Vitamin C 500 mg Wafer] 500 mg PO DAILY Aspirin [Adult Aspirin] 81 mg PO DAILY 07/14/18 Atorvastatin Calcium 20 mg PO BEDTIME 07/14/18 Carbidopa/Levodopa [Carbidopa-Levo 25-250 mg Odt] 1 each PO QID 07/14/18 Cholecalciferol (Vitamin D3) [Vitamin D3] 2,000 unit PO DAILY 07/14/18 Mv,Minerals/FA/Lycopene/Ginkgo [One Daily Men's 50+ Tablet] 1 each PO DAILY Mv-Mn/Herb#208/Beta-Sitosterol [Urinozinc Prostate Formula Tab] 2 cap PO DAILY AT SUPPER 07/14/18 Sertraline [Zoloft*] 12.5 mg PO DAILY 07/14/18 Fludrocortisone [Florinef *] 1 tab PO DAILY 09/24/18 Memantine HCl 5 mg PO BID 09/24/18 Patient Discharge Instructions: Follow up with primary care physician in 2-3 days. Follow up with neurologist Dr. Grimes in 2 weeks. Return to ER for worsening condition Diet: Regular Activity: Fall precautions
[2018-09-25 16:39] VITALS: BP 145/69; TEMP 97.4
--- NOTE | 2018-09-29 19:24 | CON ---
Date of Consultation: 09/24/2018 Reason For Consultation: Syncope. History: This is an 78-year-old gentleman with Parkinson disease and dementia with orthostatic hypot ension. He has had multiple hospital admissions for syncope this year. Etiology was initially a lit tle bit unclear, but it has become clear that the patient has fairly dramatic orthostatic hypotension . He was placed on Florinef and he has had improvement in that symptom. He has not had a syncopal s miguel in several months and was complicated by bradycardia and we have actually had to stop all of his cholinesterase inhibitors as bradycardia can be a side effect of cholinesterase inhibitors, so he is on Namenda which should not generate any untoward cardiac issues. He was in his usual state of heal th until today while standing at the table had an episode of syncope. He was unresponsive, slumped f orward, no-one noticed any convulsive activity, although he was confused for several hours afterward. He was in the hospital just a few months ago with a similar symptom complex and brain MRI and EEG w ere normal. Likewise this admission, he had a brain MRI that was normal for acute stroke. Blood pre ssure was in the 60s systolic when EMS was summoned. Workup in the emergency room was unremarkable o ther than relative hypotension. He has received some saline and blood pressure is normal presently. Consultation was requested. Past Medical History: As alluded to. Medications: Florinef, Namenda, atorvastatin, aspirin, vitamin D, Sinemet 25/250 q.i.d., sertraline. Allergies: NONE. Social History: Lives with family. Has incontinence issues, but can ambulate somewhat independently , otherwise needs assistance with most activities of daily living. Family History: Noncontributory. Review of Systems: General: Headaches. Eyes: Negative. Ears, Nose, Throat: No dysarthria with this event. No tongue biting. Cardiovascular: As alluded to. Pulmonary: Negative. GI: Nausea. : Incontinence. Musculoskeletal: Arthralgias. Neurologic: As noted. Psychiatric: Depression, dementia. Endocrine: Negative. Physical Examination: Vital Signs: He is afebrile. Vitals are stable. General: He is awake, alert, oriented. Moderate masking with hypophonia. HEENT: Pupils reactive. Ocular motion full. Griffin full. Face symmetric. Neck: Supple. Extremities: Extremities strength full. Cogwheeling, generalized bradykinesia right slightly greate r than left. Sensation decreased symmetrically distally, reflexes 1/4, toes are downgoing. Cerebell ar exam demonstrates no ataxia. Gait, shuffling stooped, small steps in bloc turns, moderate postura l instability. Heart: Sinus rhythm. Lungs: Clear. Abdomen: Soft. Bowel sounds are present. Pertinent Labs: CBC normal other than platelets of 134 and hemoglobin 11.3. Electrolytes normal. C reatinine 1.08. Brain MRI, no evidence for acute stroke. EKG; sinus bradycardia, rate of 57. Impression: Syncope with orthostatic hypotension. Plan: The patient does complain of headaches. We will check his sedimentation rate in the morning. If normal and the patient remains stable, I think he can likely safely be discharged back to home. We will consider doing a more prolonged 72-hour EEG as an outpatient as he did have some prolonged co nfusion after this episode. Thank you for the consult. SADAF Voice ID: [id number] Report ID: [id number]
== END 2018-09-25 16:55 | disposition home or self-care (01) ==
LOC: ER 09:21 → ERHOLD 11:53 → 4TH 13:49
PROVIDERS: ADMIT Family Medicine; ATTEND Family Medicine
DX: G93.41 Metabolic encephalopathy (principal); I95.1 Orthostatic hypotension; E78.2 Mixed hyperlipidemia; G20 Parkinson's disease; H35.30 Unspecified macular degeneration; H74.8X1 Other specified disorders of right middle ear and mastoid; K21.9 Gastro-esophageal reflux disease without esophagitis; F03.90 Unspecified dementia, unspecified severity, without behavioral disturbance, psychotic disturbance, mood disturbance, and anxiety; F32.9 Major depressive disorder, single episode, unspecified; R00.1 Bradycardia, unspecified; D64.9 Anemia, unspecified; E55.9 Vitamin D deficiency, unspecified; I11.0 Hypertensive heart disease with heart failure; I50.9 Heart failure, unspecified; I73.9 Peripheral vascular disease, unspecified; F41.9 Anxiety disorder, unspecified; M19.90 Unspecified osteoarthritis, unspecified site; Z79.82 Long term (current) use of aspirin; Z79.899 Other long term (current) drug therapy; Z85.828 Personal history of other malignant neoplasm of skin; Z66 Do not resuscitate
CPT/HCPCS: 93005; 85025 ×2; 80048; 36415; 83735; 85610; 82962; 80076; 85652; 81003 ×2; 84484; 83540; 80053; 83880; 84466; 70450; 71045; 70551; 97163; 94760 ×3; 99291; 99292; J3411; J1650 ×2; J7030 ×2; G0378 ×2

== ENCOUNTER 2018-11-07 10:10 | Emergency (ER) | payer MEDICARE ==
--- OUTSIDE RECORDS SUMMARY | 2018-11-07 10:13 | XMS REPORT | Clinical Summary ---
:1940 Author Organization [facility] Address [address] [place] [address] Care Team Providers Name Role Phone Rafa [...] total) by mouth 2 (two) times daily. fexofenadine-pseudo Take 1 tablet 0 07/01/2018 Discontinued [...] 400-400-40 mg/5 mL to 10 days. suspension pantoprazole Take 1 tablet 90 tablet 0 07/02/2018 09/30/2018 (PROTONIX) 40 MG (40 mg total) tablet by mouth daily for 90 days. Active Problems Problem Noted Date Syncope, unspecified syncope type 06/27/2018 Encounters Date Type Specialty Care Team Description 06/27/2018 - Hospital Encounter General Internal Mak, Syncope, unspecified syncope type (Primary Dx); 07/01/2018 Medicine MD Radha Acute nonintractable headache, unspecified headache type; Nilay, New onset headache; Abby Love, Parkinson's disease ([facility]); Hypotension, unspecified hypotension type; Joann, Yashash Volume depletion; D NSVT (nonsustained ventricular tachycardia) ([facility]) Lacho Díaz MD 06/27/2018 Orders Only General Internal Medicine 06/27/2018 Travel after 11/06/2017 Social History Tobacco Use Types Packs/Day Years [...] Taken Blood Pressure 106/55 07/01/2018 11:12 AM [facility] Pulse 58 07/01/2018 11:12 AM [facility] Temperature 35.9 C (96.6 F) 07/01/2018 11:12 AM [facility] Respiratory Rate 22 07/01/2018 11:12 AM [facility] Oxygen Saturation 100% 07/01/2018 11:12 AM [facility] Inhaled Oxygen Concentration - - Weight 60.3 kg (133 lb) 06/28/2018 12:30 AM [facility] Height 162.6 cm (5' 4") 06/28/2018 12:30 AM [facility] Body Mass Index 22.83 06/28/2018 12:30 AM [facility] Plan of Treatment Not on file Procedures Procedure Name Priority Date/Time Associated Comments Diagnosis RHYTHM STRIP - SCAN 07/04/2018 11:33 AM [facility] REPORT OF PROCEDURE - 07/01/2018 4:04 ENDOSCOPY SCAN PM [facility] COMPREHENSIVE METABOLIC Routine 07/01/2018 12:47 Results for this PANEL PM [facility] procedure are in the results section. LIPASE Routine 07/01/2018 12:47 Results for this PM [facility] procedure are in the results section. MAGNESIUM Routine 07/01/2018 12:47 Results for this PM [facility] procedure are in the results section. ECHOCARDIOGRAM REPORT - 06/30/2018 9:21 SCAN PM [facility] PERIPHERAL VASCULAR 06/30/2018 9:20 REPORT - SCAN PM [facility] 2D ECHO W/ DOPPLER ONOFRE 06/30/2018 2:08 Results for this (CW/PW/COLOR) PM [facility] procedure are in the results section. CBC W/PLT COUNT & AUTO Routine 06/30/2018 5:01 Results for this DIFFERENTIAL AM [facility] procedure are in the results section. MAGNESIUM Routine 06/30/2018 5:01 Results for this AM [facility] procedure are in the results section. CBC W/PLT COUNT & AUTO Routine 06/30/2018 5:01 Results for this DIFFERENTIAL AM [facility] procedure are in the results section. BASIC METABOLIC PANEL Routine 06/30/2018 5:01 Results for this (7) AM [facility] procedure are in the results section. CAROTID DOPPLER Routine 06/29/2018 1:50 Results for this BILATERAL PM [facility] procedure are in the results section. CBC W/PLT COUNT & AUTO Routine 06/29/2018 5:18 Results for this DIFFERENTIAL AM [facility] procedure are in the results section. MAGNESIUM Routine 06/29/2018 5:18 Results for this AM [facility] procedure are in the results section. CBC W/PLT COUNT & AUTO Routine 06/29/2018 5:18 Results for this DIFFERENTIAL AM [facility] procedure are in the results section. BASIC METABOLIC PANEL Routine 06/29/2018 5:18 Results for this (7) AM [facility] procedure are in the results section. US ABDOMEN LIMITED Routine 06/29/2018 12:00 Results for this AM [facility] procedure are in the results section. ECG 12-LEAD Routine 06/28/2018 10:01 Results for this AM [facility] procedure are in the results section. BLOOD CULTURE Routine 06/28/2018 5:17 Results for this AM [facility] procedure are in the results section. CBC W/PLT COUNT & AUTO Routine 06/28/2018 5:09 Results for this DIFFERENTIAL AM [facility] procedure are in the results section. CBC W/PLT COUNT & AUTO Routine 06/28/2018 5:09 Results for this DIFFERENTIAL AM [facility] procedure are in the results section. BASIC METABOLIC PANEL Routine 06/28/2018 5:09 Results for this (7) AM [facility] procedure are in the results section. BLOOD CULTURE Routine 06/28/2018 5:09 Results for this AM [facility] procedure are in the results section. CT BRAIN WITHOUT IV STAT 06/27/2018 11:35 Results for this CONTRAST PM [facility] procedure are in the results section. URINALYSIS W/ REFLEX STAT 06/27/2018 9:28 Results for this URINE CULTURE PM [facility] procedure are in the results section. XR CHEST 1 VIEW STAT 06/27/2018 8:41 Results for this PORTABLE/BEDSIDE PM [facility] procedure are in the results section. ECG 12-LEAD Routine 06/27/2018 7:09 PM [facility] Procedure Note - Interface, External Ris In - 06/27/2018 7:45 PM [facility] Ventricular Rate 56 BPM Atrial Rate 56 BPM P-R Interval 128 ms QRS Duration 86 ms Q-T Interval 470 ms QTC Calculation(Bazett) 453 ms P Shelby 1 degrees R Shelby -3 degrees T Shelby 39 degrees Junctional rhythm Abnormal ECG No previous ECGs available ECG 12-LEAD STAT 06/27/2018 7:09 PM [facility] CBC W/PLT COUNT & AUTO STAT 06/27/2018 6:55 PM [facility] Results for this DIFFERENTIAL procedure are in the results section. PHOSPHORUS STAT 06/27/2018 6:55 PM [facility] MAGNESIUM STAT 06/27/2018 6:55 PM [facility] HEPATIC FUNCTION PANEL STAT 06/27/2018 6:55 PM [facility] LIPASE STAT 06/27/2018 6:55 PM [facility] TROPONIN I STAT 06/27/2018 6:55 PM [facility] B-TYPE NATRIURETIC FACTOR STAT 06/27/2018 6:55 PM [facility] Results for this (BNP) procedure are in the results section. BASIC METABOLIC PANEL (7) STAT 06/27/2018 6:55 PM [facility] CBC W/PLT COUNT & AUTO STAT 06/27/2018 6:55 PM [facility] Results for this DIFFERENTIAL procedure are in the results section. ED ECG INTERPRETATION Routine 06/27/2018 6:41 PM [facility] after 11/06/2017 Results RHYTHM STRIP - SCAN (07/04/2018 11:33 AM [facility]) Narrative Performed At EKG-SCANNED (07/01/2018 4:04 PM [facility]) Narrative Performed At Magnesium (07/01/2018 12:47 PM [facility])Only the most recent of4 resultswithin the time period is included. Magnesium 1.9 1.6 - 2.6 mg/dL [facility] Specimen Blood Performing Organization Address City/[facility] [address]/[facility] Cent[facility]ode Phone Number [address] [address] [place] Lipase (07/01/2018 12:47 PM [facility])Only the most recent of2 resultswithin the time period is included. Lipase 521 (H) 8 - 78 U/L [facility] Specimen Blood Performing Organization Address City/[facility] [address]/[facility] Centercode Phone Number [address] [address] [place] Comprehensive metabolic panel (07/01/2018 12:47 PM [facility]) Protein, Total 6.3 6.0 - 8.3 gm/dL [facility] Albumin 3.7 3.5 - 5.0 g/dL [facility] Alkaline Phosphatase 86 40 - 150 U/L [facility] Total Bilirubin 0.4 0.2 - 1.2 mg/dL [facility] Sodium 139 136 - 145 meq/L [facility] Potassium 4.1 3.5 - 5.1 meq/L [facility] Chloride 104 98 - 107 meq/L [facility] CO2 27 22 - 29 meq/L [facility] BUN 9 7 - 21 mg/dL [facility] Creatinine 1.06 0.57 - 1.25 mg/dL [facility] Glucose 104 70 - 105 mg/dL [facility] Calcium 9.1 8.4 - 10.2 mg/dL [facility] AST 19 5 - 34 U/L [facility] ALT <6 (L) 6 - 55 U/L [facility] EGFR 67Comment: ESTIMATED GFR mL/min/1.[address] [facility] IS NOT ACCURATE [facility] CREATININE CLEARANCE IN PREDICTING GLOMERULAR FILTRATION RATE. ESTIMATED GFR IS NOT APPLICABLE FOR DIALYSIS PATIENTS. Specimen Blood Performing Organization Address City/State/Zipcode Phone Number [facility] [address] [place] [address] CENTER ECHOCARDIOGRAM REPORT - SCAN (06/30/2018 9:21 PM [facility]) Narrative Performed At PERIPHERAL VASCULAR REPORT - SCAN (06/30/2018 9:20 PM [facility]) Narrative Performed At 2D Echo W/Doppler(CW/PW/Color) (06/30/2018 2:08 PM [facility]) Ejection Fraction [facility] ECHO HEARTLAB Paradigm [facility]ON [facility] Specimen Narrative Performed At Transthoracic Echocardiography Report (TTE) [facility] Operative MindCKESSON [facility] Demographics Patient NameCARINA LOUIS Date of Study06/30/2018 Gender Male Visit [id number] Race Unknown [id number] Number Date of 1940 Juan AlbertoHANSEL RIVAS Physician Age 78 year(s) SonographerEL Hope, [...] External Ris In - 06/30/2018 5:20 PM [facility] Transthoracic Echocardiography Report (TTE) Demographics Patient Name CARINA LOUIS Date of Study 06/30/2018 Gender Male Visit Number [id number] Race Unknown Room Number 2255 Number Date of 1940 Referring MICHELLE RIVAS Physician Age 78 year(s) Residential Care Facility Manager EL Hope, RDCS,RVT,RDMS Interpreting Odilon Velez MD [...] count + automated diff (06/30/2018 5:01 AM [facility])Only the most recent of4 resultswithin the time period is included. WBC 5.3 3.5 - 10.5 K/L [facility] RBC 3.16 (L) 4.63 - 6.08 M/L [facility] Hemoglobin 10.0 (L) 13.7 - 17.5 GM/DL [facility] Hematocrit 31.4 (L) 40.1 - 51.0 % [facility] MCV 99.4 (H) 79.0 - 92.2 fL [facility] MCH 31.6 25.7 - 32.2 pg [facility] MCHC 31.8 (L) 32.3 - 36.5 GM/DL [facility] RDW 12.6 11.6 - 14.4 % [facility] Platelets 148 (L) 150 - 450 K/CU MM [facility] MPV 9.8 9.4 - 12.4 fL [facility] nRBC 0 0 - 0 /100 WBC [facility] % Neutros 50 % [facility] % Lymphs 34 % [facility] % Monos 12 % [facility] % Eos 4 % [facility] % Baso 1 % [facility] # Neutros 2.60 1.78 - 5.38 K/L [facility] # Lymphs 1.76 1.32 - 3.57 K/L [facility] # Monos 0.65 0.30 - 0.82 K/L [facility] # Eos 0.20 0.04 - 0.54 K/L [facility] # Baso 0.03 0.01 - 0.08 K/L [facility] Immature Granulocytes-Relative 0 0 - 1 % [facility] Specimen Blood Performing Organization Address City/State/Zipcode Phone Number [facility] [address] [place] [address] CENTER Basic metabolic panel (06/30/2018 5:01 AM [facility])Only the most recent of4 resultswithin the time period is included. Sodium 138 136 - 145 meq/L [facility] Potassium 4.2 3.5 - 5.1 meq/L [facility] Chloride 107 98 - 107 meq/L [facility] CO2 25 22 - 29 meq/L [facility] BUN 9 7 - 21 mg/dL [facility] Creatinine 0.95 0.57 - 1.25 mg/dL [facility] Glucose 94 70 - 105 mg/dL [facility] Calcium 8.6 8.4 - 10.2 mg/dL [facility] EGFR 76Comment: ESTIMATED GFR IS mL/min/1.73 sq m [facility] NOT ACCURATE [facility] CLEARANCE IN PREDICTING GLOMERULAR FILTRATION RATE. ESTIMATED GFR IS NOT APPLICABLE FOR DIALYSIS PATIENTS. Specimen Blood Performing Organization Address City/State/Zipcode Phone Number [facility] [address] [place] [address] [phone] CENTER Carotid doppler bilateral (06/29/2018 1:50 PM [facility]) Ejection [facility] ECHO HEARTLAB MKCKESSON [facility] Specimen Impressions Performed At Right Impression [facility] ECHO HEARTLAB MKCKESSON CPACS 1. There [...] Performed At LAB - Carotid Duplex Study [facility] ECHO HEARTLAB MKCKESSON [facility] Demographics Patient NameCARINA LOUISDate of Study 06/29/2018 78 Visit [id number] Male of 1940 [id number] Residential Care Facility Manager Uziel Vogel RVT Physician Procedure Type of Study: Cerebral: Carotid, CAROTID DOPPLER, BILATERAL. Indications for Study:Right Carotid Bruit. Patient Status:Routine. Study Location:Portable. Technical Quality:Adequate visualization. Procedure Note Interface, External Ris In - 06/29/2018 10:14 PM [facility] LAB - Carotid Duplex Study Demographics Patient Name CARINA LOUIS Date of Study 06/29/2018 Age 78 Visit Number [id number] Gender Male Accession Number [id number] Date of 1940 Referring [facility] Room Number 2255 Physician Residential Care Facility Manager Uziel Vogel RVT Physician Procedure Type of [...] City/State/Zipcode Phone Number [facility] ECHO HEARTLAB MKCKESSON [facility] US abdomen limited (06/29/2018 12:00 AM [facility]) Specimen Narrative Performed At FINAL REPORT [facility] This examination was made available for my [...] MD Report Verified Date/Time:07/01/2018 11:30:04 Reading Location: [address] Ultrasound Reading Room Procedure Note Interface, External Ris In - 07/01/2018 11:32 AM [facility] FINAL REPORT This examination was made available [...] Report Verified Date/Time: 07/01/2018 11:30:04 Reading Location: [facility] P006 Ultrasound Reading Room Performing Organization Address City/State/Zipcode Phone Number [facility] ECG 12 lead (06/28/2018 10:01 AM [facility])Only the most recent of2 resultswithin the time period is included. Specimen Narrative Performed At Ventricular Rate 74 BPM [facility] Atrial Rate 74 BPM P-R Interval 136 ms QRS Duration 106 ms Q-T Interval 422 ms QTC Calculation(Bazett) 468 ms P Shelby 40 degrees R Shelby -5 degrees T Shelby 45 degrees Normal sinus rhythm Normal ECG Confirmed by MIRZAI-TEHRANE, MD, MAJID ([id number]) on 06/28/2018 3:02:24 PM Procedure Note Interface, External Ris In - 06/28/2018 3:02 PM [facility] Ventricular Rate 74 BPM Atrial Rate 74 BPM P-R Interval 136 ms QRS Duration 106 ms Q-T Interval 422 ms QTC Calculation(Bazett) 468 ms P Shelby 40 degrees R Shelby -5 degrees T Shelby 45 degrees Normal sinus rhythm Normal ECG Confirmed by MD DOWNING MAJID ([id number]) on 06/28/2018 3:02:24 PM Performing Organization Address City/State/Zipcode Phone Number [facility] Blood Culture - Routine (Left Venipuncture) (06/28/2018 5:17 AM [facility])Only the most recent of2 resultswithin the time period is included. Result No growth in 5 days [facility] Specimen Blood Performing Organization Address City/[facility] [address]/[facility] [place] [address] brain without IV contrast (06/27/2018 11:35 PM [facility]) Specimen Narrative Performed At FINAL REPORT [facility] CT, BRAIN, WITHOUT CONTRAST CLINICAL INDICATION:Syncope/fainting COMPARISON: [...] MD Report Verified Date/Time:06/27/2018 23:42:40 Reading Location: [address] Neuro Reading Room Procedure Note Interface, External Ris In - 06/27/2018 11:44 PM [facility] FINAL REPORT CT, BRAIN, WITHOUT CONTRAST CLINICAL [...] Report Verified Date/Time: 06/27/2018 23:42:40 Reading Location: [facility] C013V Neuro Reading Room Performing Organization Address City/State/Zipcode Phone Number [facility] Urinalysis w/Microscopic + Reflex to Culture (06/27/2018 9:28 PM [facility]) Color, UA Colorless [facility] Clarity, UA Clear [facility] Specific [place], UA 1.001 1.001 - 1.035 [facility] pH, UA 7.5 5.0 - 8.0 [facility] Protein, UA Negative Negative [facility] Glucose, UA Negative Negative [facility] Ketones, UA Negative Negative [facility] Bilirubin, UA Negative Negative [facility] Blood, UA Trace (A) Negative [facility] Nitrite, UA Negative Negative [facility] Leukocytes, UA Negative Negative [facility] Urobilinogen, UA 0.2 0.2 - 1.0 mg/dL [facility] RBC, UA 1 /HPF [facility] WBC, UA <1 /HPF [facility] Specimen Source [facility] Specimen Urine Performing Organization Address City/State/Zipcode Phone Number [facility] [address] [place] [address] [phone] CENTER XR chest 1 view portable / bedside (06/27/2018 8:41 PM [facility]) Specimen Narrative Performed At FINAL REPORT [facility] INDICATION: LOSS OF CONSCIOUSNESS COMPARISON: None TECHNIQUE: Single frontal view of the chest. FINDINGS: Lungs and pleura: Clear lungs. No effusion. Heart and mediastinum: Normal heart size. Unremarkable mediastinal contours. Osseous structures: No acute abnormality. Other: None. IMPRESSION: No acute intrathoracic abnormality. Signed: Nick Gutierrez MD Report Verified Date/Time:06/27/2018 21:14:39 Reading Location: [address] Neuro Reading Room Procedure Note Interface, External Ris In - 06/27/2018 9:16 PM [facility] FINAL REPORT INDICATION: LOSS OF CONSCIOUSNESS COMPARISON: None TECHNIQUE: Single frontal view of the chest. FINDINGS: Lungs and pleura: Clear lungs. No effusion. Heart and mediastinum: Normal heart size. Unremarkable mediastinal contours. Osseous structures: No acute abnormality. Other: None. IMPRESSION: No acute intrathoracic abnormality. Signed: Nick Gutierrez MD Report Verified Date/Time: 06/27/2018 21:14:39 Reading Location: [facility] C0[facility] Neuro Reading Room Performing Organization Address City/State/Zipcode Phone Number RIS Troponin I (06/27/2018 6:55 PM [facility]) Troponin I <0.01 0.00 - 0.03 ng/mL [facility] Specimen Blood Narrative Performed At Troponin I (TnI) levels must be interpreted [facility] in the context of the [...] disease, and persistent tachyarrhythmia. Performing Organization Address City/[facility] [address]/Zipcode Phone Number [address] [phone] CENTER Phosphorus (06/27/2018 6:55 PM [facility]IST[facility]) Phosphorus 2.9 2.3 - 4.7 mg/dL [facility] Specimen Blood Performing Organization Address [facility] [address]/[facility] Centercovt Phone Number [address] [address] CENTER B-type Natriuretic Factor (BNP) (06/27/2018 6:55 PM [facility]) BNP 94 0 - 100 pg/mL [facility] Specimen Blood Performing Organization Address [facility] [address]/[facility] Centercode Phone Number [address] [address] [place] Hepatic function panel (06/27/2018 6:55 PM [facility]IST[facility]) Protein, Total 6.0 6.0 - 8.3 gm/dL [facility] Albumin 3.7 3.5 - 5.0 g/dL [facility] Total Bilirubin 0.5 0.2 - 1.2 mg/dL [facility] Bilirubin, Direct 0.3 0.1 - 0.5 mg/dL [facility] Alkaline Phosphatase 78 40 - 150 U/L [facility] AST 32 5 - 34 U/L [facility] ALT 6 6 - 55 U/L [facility] Specimen Blood Performing Organization Address City/State/Zipcode Phone Number AJAY [facility] [address], [place] [phone] CENTER ECG/EKG Interpretation (06/27/2018 6:41 PM [facility]IST[facility]) Narrative Performed At Radha Corado MD 06/30/20186:52 AM ECG/EKG Interpretation Date/Time: 06/27/2018 8:06 PM Performed by: Radha Corado MD Authorized by: Radha Corado MD This ECG was not compared with previous ECG(s).The ECG is interpreted as sinus bradycardia. Rate is bradycardic. ST segments abnormal. T waves abnormal. Shelby is normal. Clinical Impression: non-specific ECG after 11/06/2017 Insurance Payer Benefit Plan / Group Subscriber ID Type Phone Address [employer] - MEDICARE AARP/MEDICARE COMPLETE xxxxxxxxx [facility] ([place]) [place] [address] Advance Directives Patient has advance care planning documents, and code status on file. For more information, please contact:AJAY [address] [phone] Code Status Date Activated Date Inactivated Comments Full Code 06/27/2018 10:12 PM 07/01/2018 6:29 PM This code status was determined by: Patient
--- OUTSIDE RECORDS SUMMARY | 2018-11-07 10:14 | XMS REPORT ---
:1940 [facility] Address [address] [place] [address] Care Team Providers Name Role Phone GHULAM [...] code=TROPI) < 0.012 NG/ML 0.012-0.033 Q 6HRS. [id number] 03:54:00 Test Item Value Reference Range Comments TROPONIN-I (test code=TROPI) < 0.012 NG/ML 0.012-0.033 [id number] 21:09:00 Test Item Value Reference Range Comments TROPONIN-I (test code=TROPI) < 0.012 NG/ML 0.012-0.033 COMPREHENSIVE METABOLIC [id number] 17:26:00 Test Item Value Reference Range Comments [...] ALKALINE PHOSPHATASE (test 86 UNITS/L 38-126 code=ALKP) [id number] 17:26:00 Test Item Value Reference Range Comments PHOSPHOROUS (test code=PHOS) 3.4 MG/DL 2.5-4.5 [id number] 17:26:00 Test Item Value Reference Range Comments MAGNESIUM (test code=MAG) 2.3 MG/DL 1.6-2.3 TROPONIN I [id number] 17:09:00 Test Item Value Reference Range Comments TROPONIN I RAPID (test code=TROPIRAP) 0.01 NG/ML 0.00-0.05 CBC W/AUTO [id number] 17:09:00 Test Item Value Reference Range Comments [...] code=NRBC#) 0.00 K/mm3 0.0-0.1 - XR CHEST [id number] 16:56:00 Patient Name: CARINA SAMANIEGO Unit No: [id number] EXAMS: CPT CODE: [id number] XR CHEST 1V 33128 EXAMINATION: - XR CHEST 1V. LOCATION: B2. [...] Technologist: Carolina Sherman, RT(R) Transcrpt Date/Tm/Trnsp: 07/28/2018 (1655) CassPR7 Orig Print D/T: S: 07/28/2018 (2819) [facility] NAME: CARINA SAMANIEGO [place] PHYS: [place] [address] : 1940 AGE: 78 SEX: M LOC: Andrea.ERS PHONE #: [phone] EXAM DATE: 2018 STATUS: PRE ER FAX #: [phone] RADIOLOGY NO: PAGE 1 Signed ReportBLOOD [id number] 11:02:00 Test Item Value Reference Range Comments CULTURE (BEAKER) (test qjje=0262) No growth in 5 days BLOOD [id number] 11:02:00 Test Item Value Reference Range Comments CULTURE (BEAKER) (test moif=6733) No growth in 5 days COMPREHENSIVE METABOLIC [id number] 13:41:00 Test Item Value Reference Range Comments TOTAL PROTEIN (BEAKER) 6.3 gm/dL 6.0-8.3 (test vctf=032) ALBUMIN (BEAKER) (test 3.7 g/dL 3.5-5.0 uqss=2352) ALKALINE PHOSPHATASE 86 U/L 40-150 (BEAKER) (test vkyd=350) BILIRUBIN TOTAL (BEAKER) 0.4 mg/dL 0.2-1.2 (test gzag=409) SODIUM (BEAKER) (test 139 meq/L 136-145 jvao=980) POTASSIUM (BEAKER) (test 4.1 meq/L 3.5-5.1 ovta=686) CHLORIDE (BEAKER) (test 104 meq/L 98-107 qeic=939) CO2 (BEAKER) (test 27 meq/L 22-29 lcwb=663) BLOOD UREA NITROGEN 9 mg/dL 7-21 (BEAKER) (test xcni=312) CREATININE (BEAKER) (test 1.06 mg/dL 0.57-1.25 vsrp=213) GLUCOSE RANDOM (BEAKER) 104 mg/dL 70-105 (test rsss=505) CALCIUM (BEAKER) (test 9.1 mg/dL 8.4-10.2 hlmd=214) AST (SGOT) (BEAKER) (test 19 U/L 5-34 tezk=677) ALT (SGPT) (BEAKER) (test < U/L 6-55 knop=989) EGFR (BEAKER) (test 67 mL/min/1.73 sq m ESTIMATED GFR IS NOT fqtd=6330) ACCURATE CREATININE CLEARANCE IN PREDICTING GLOMERULAR FILTRATION RATE. ESTIMATED GFR IS NOT APPLICABLE FOR DIALYSIS PATIENTS. [id number] 13:24:00 Test Item Value Reference Range Comments MAGNESIUM (BEAKER) (test inec=068) 1.9 mg/dL 1.6-2.6 [id number] 13:24:00 Test Item Value Reference Range Comments LIPASE (BEAKER) (test auao=962) 521 U/L 8-78 U/S, ABDOMINAL, [id number] 11:30:00Abdomen limited area? Add comment if clarification [...] Benjamin Verified Date/Time: 07/01/2018 11:30:04 Reading Location: [facility] [id number] Ultrasound Reading Room [id number] 06:07: 00 Test Item Value Reference Range Comments MAGNESIUM (BEAKER) (test avrx=533) 2.1 mg/dL 1.6-2.6 BASIC METABOLIC [id number] 06:07:00 Test Item Value Reference Range Comments SODIUM (BEAKER) (test 138 meq/L 136-145 devw=231) POTASSIUM (BEAKER) (test 4.2 meq/L 3.5-5.1 llhu=330) CHLORIDE (BEAKER) (test 107 meq/L 98-107 ipgo=673) CO2 (BEAKER) (test 25 meq/L 22-29 vcsy=792) BLOOD UREA NITROGEN 9 mg/dL 7-21 (BEAKER) (test wyef=633) CREATININE (BEAKER) (test 0.95 mg/dL 0.57-1.25 xenq=317) GLUCOSE RANDOM (BEAKER) 94 mg/dL 70-105 (test yvtx=516) CALCIUM (BEAKER) (test 8.6 mg/dL 8.4-10.2 txtr=764) EGFR (BEAKER) (test 76 mL/min/1.73 sq m ESTIMATED GFR IS NOT kvdb=9900) ACCURATE CREATININE CLEARANCE IN PREDICTING GLOMERULAR FILTRATION RATE. ESTIMATED GFR IS NOT APPLICABLE FOR DIALYSIS PATIENTS. CBC W/PLT COUNT & AUTO [id number] 06:04:00 Test Item Value Reference Range Comments WHITE BLOOD CELL COUNT (BEAKER) (test lkob=866) 5.3 K/ L 3.5-10.5 RED BLOOD CELL COUNT (BEAKER) (test jsyi=479) 3.16 M/ L 4.63-6.08 HEMOGLOBIN (BEAKER) (test jkul=810) 10.0 GM/DL 13.7-17.5 HEMATOCRIT (BEAKER) (test juaq=696) 31.4 % 40.1-51.0 MEAN CORPUSCULAR VOLUME (BEAKER) (test dshg=826) 99.4 fL 79.0-92.2 MEAN CORPUSCULAR HEMOGLOBIN (BEAKER) (test 31.6 pg 25.7-32.2 xnax=394) MEAN CORPUSCULAR HEMOGLOBIN CONC (BEAKER) (test 31.8 GM/DL 32.3-36.5 wnkd=191) RED CELL DISTRIBUTION WIDTH (BEAKER) (test 12.6 % 11.6-14.4 wxrb=362) PLATELET COUNT (BEAKER) (test jywm=900) 148 K/CU MM 150-450 MEAN PLATELET VOLUME (BEAKER) (test ipix=865) 9.8 fL 9.4-12.4 NUCLEATED RED BLOOD CELLS (BEAKER) (test 0 /100 WBC 0-0 muuu=508) NEUTROPHILS RELATIVE PERCENT (BEAKER) (test 50 % raiu=026) LYMPHOCYTES RELATIVE PERCENT (BEAKER) (test 34 % phhb=827) MONOCYTES RELATIVE PERCENT (BEAKER) (test 12 % jdri=035) EOSINOPHILS RELATIVE PERCENT (BEAKER) (test 4 % xdea=071) BASOPHILS RELATIVE PERCENT (BEAKER) (test 1 % jchg=058) NEUTROPHILS ABSOLUTE COUNT (BEAKER) (test 2.60 K/ L 1.78-5.38 rztf=605) LYMPHOCYTES ABSOLUTE COUNT (BEAKER) (test 1.76 K/ L 1.32-3.57 xjwz=039) MONOCYTES ABSOLUTE COUNT (BEAKER) (test 0.65 K/ L 0.30-0.82 jmsd=975) EOSINOPHILS ABSOLUTE COUNT (BEAKER) (test 0.20 K/ L 0.04-0.54 veef=808) BASOPHILS ABSOLUTE COUNT (BEAKER) (test 0.03 K/ L 0.01-0.08 vaid=007) IMMATURE GRANULOCYTES-RELATIVE PERCENT (BEAKER) 0 % 0-1 (test xsks=0781) [id number] 10:30:00 Test Item Value Reference Range Comments MAGNESIUM (BEAKER) (test hijr=101) 1.9 mg/dL 1.6-2.6 CBC W/PLT COUNT & AUTO [id number] 07:07:00 Test Item Value Reference Range Comments WHITE BLOOD CELL COUNT (BEAKER) (test jseb=919) 4.4 K/ L 3.5-10.5 RED BLOOD CELL COUNT (BEAKER) (test dffy=319) 3.32 M/ L 4.63-6.08 HEMOGLOBIN (BEAKER) (test ivul=573) 10.6 GM/DL 13.7-17.5 HEMATOCRIT (BEAKER) (test habd=934) 32.9 % 40.1-51.0 MEAN CORPUSCULAR VOLUME (BEAKER) (test wagz=381) 99.1 fL 79.0-92.2 MEAN CORPUSCULAR HEMOGLOBIN (BEAKER) (test 31.9 pg 25.7-32.2 ktra=894) MEAN CORPUSCULAR HEMOGLOBIN CONC (BEAKER) (test 32.2 GM/DL 32.3-36.5 amem=050) RED CELL DISTRIBUTION WIDTH (BEAKER) (test 12.7 % 11.6-14.4 ncqs=319) PLATELET COUNT (BEAKER) (test tbpq=205) 145 K/CU MM 150-450 MEAN PLATELET VOLUME (BEAKER) (test tois=662) 10.1 fL 9.4-12.4 NUCLEATED RED BLOOD CELLS (BEAKER) (test 0 /100 WBC 0-0 modr=215) NEUTROPHILS RELATIVE PERCENT (BEAKER) (test 40 % vpol=153) LYMPHOCYTES RELATIVE PERCENT (BEAKER) (test 44 % ojqs=392) MONOCYTES RELATIVE PERCENT (BEAKER) (test 12 % ghnw=117) EOSINOPHILS RELATIVE PERCENT (BEAKER) (test 4 % osev=011) BASOPHILS RELATIVE PERCENT (BEAKER) (test 1 % ldrj=222) NEUTROPHILS ABSOLUTE COUNT (BEAKER) (test 1.74 K/ L 1.78-5.38 hivl=567) LYMPHOCYTES ABSOLUTE COUNT (BEAKER) (test 1.90 K/ L 1.32-3.57 kqib=720) MONOCYTES ABSOLUTE COUNT (BEAKER) (test 0.54 K/ L 0.30-0.82 jivu=729) EOSINOPHILS ABSOLUTE COUNT (BEAKER) (test 0.16 K/ L 0.04-0.54 olfs=059) BASOPHILS ABSOLUTE COUNT (BEAKER) (test 0.02 K/ L 0.01-0.08 lqxc=292) IMMATURE GRANULOCYTES-RELATIVE PERCENT (BEAKER) 0 % 0-1 (test prgn=0374) BASIC METABOLIC [id number] 06:31:00 Test Item Value Reference Range Comments SODIUM (BEAKER) (test 138 meq/L 136-145 eqga=307) POTASSIUM (BEAKER) (test 3.7 meq/L 3.5-5.1 vkhe=826) CHLORIDE (BEAKER) (test 107 meq/L 98-107 tthu=267) CO2 (BEAKER) (test 25 meq/L 22-29 qhko=984) BLOOD UREA NITROGEN 9 mg/dL 7-21 (BEAKER) (test oqkv=211) CREATININE (BEAKER) (test 1.01 mg/dL 0.57-1.25 ikmk=831) GLUCOSE RANDOM (BEAKER) 81 mg/dL 70-105 (test cord=580) CALCIUM (BEAKER) (test 8.7 mg/dL 8.4-10.2 ozbd=726) EGFR (BEAKER) (test 71 mL/min/1.73 sq m ESTIMATED GFR IS NOT udft=7225) ACCURATE CREATININE CLEARANCE IN PREDICTING GLOMERULAR FILTRATION RATE. ESTIMATED GFR IS NOT APPLICABLE FOR DIALYSIS PATIENTS. BASIC METABOLIC [id number] 06:27:00 Test Item Value Reference Range Comments SODIUM (BEAKER) (test 139 meq/L 136-145 ltiy=247) POTASSIUM (BEAKER) (test 4.1 meq/L 3.5-5.1 lwuv=309) CHLORIDE (BEAKER) (test 106 meq/L 98-107 kwfj=478) CO2 (BEAKER) (test 26 meq/L 22-29 pabe=614) BLOOD UREA NITROGEN 10 mg/dL 7-21 (BEAKER) (test tyng=827) CREATININE (BEAKER) (test 0.98 mg/dL 0.57-1.25 tbqk=092) GLUCOSE RANDOM (BEAKER) 78 mg/dL 70-105 (test cbyz=777) CALCIUM (BEAKER) (test 9.5 mg/dL 8.4-10.2 jguo=279) EGFR (BEAKER) (test mL/min/1.73 sq m INSUFFICIENT CLINICAL DATA bpdi=3848) TO CALCULATE ESTIMATED GFR. CBC W/PLT COUNT & AUTO [id number] 05:45:00 Test Item Value Reference Range Comments WHITE BLOOD CELL COUNT (BEAKER) (test urhp=639) 4.5 K/ L 3.5-10.5 RED BLOOD CELL COUNT (BEAKER) (test hyxo=972) 3.71 M/ L 4.63-6.08 HEMOGLOBIN (BEAKER) (test tqyk=985) 11.8 GM/DL 13.7-17.5 HEMATOCRIT (BEAKER) (test eluq=901) 36.0 % 40.1-51.0 MEAN CORPUSCULAR VOLUME (BEAKER) (test cywe=859) 97.0 fL 79.0-92.2 MEAN CORPUSCULAR HEMOGLOBIN (BEAKER) (test 31.8 pg 25.7-32.2 zukm=636) MEAN CORPUSCULAR HEMOGLOBIN CONC (BEAKER) (test 32.8 GM/DL 32.3-36.5 mqkg=462) RED CELL DISTRIBUTION WIDTH (BEAKER) (test 12.6 % 11.6-14.4 hxjk=441) PLATELET COUNT (BEAKER) (test qwqy=556) 170 K/CU MM 150-450 MEAN PLATELET VOLUME (BEAKER) (test inph=873) 9.5 fL 9.4-12.4 NUCLEATED RED BLOOD CELLS (BEAKER) (test 0 /100 WBC 0-0 jtsl=039) NEUTROPHILS RELATIVE PERCENT (BEAKER) (test 50 % aotp=563) LYMPHOCYTES RELATIVE PERCENT (BEAKER) (test 37 % gwga=866) MONOCYTES RELATIVE PERCENT (BEAKER) (test 10 % ixfd=502) EOSINOPHILS RELATIVE PERCENT (BEAKER) (test 3 % ggks=564) BASOPHILS RELATIVE PERCENT (BEAKER) (test 0 % exgu=766) NEUTROPHILS ABSOLUTE COUNT (BEAKER) (test 2.23 K/ L 1.78-5.38 ezir=137) LYMPHOCYTES ABSOLUTE COUNT (BEAKER) (test 1.67 K/ L 1.32-3.57 lrno=130) MONOCYTES ABSOLUTE COUNT (BEAKER) (test 0.44 K/ L 0.30-0.82 bybm=617) EOSINOPHILS ABSOLUTE COUNT (BEAKER) (test 0.15 K/ L 0.04-0.54 jirq=338) BASOPHILS ABSOLUTE COUNT (BEAKER) (test 0.02 K/ L 0.01-0.08 ucdx=760) IMMATURE GRANULOCYTES-RELATIVE PERCENT (BEAKER) 0 % 0-1 (test hlhz=8177) CT, BRAIN, WITHOUT [id number] 23:42:00FINAL REPORT CT, BRAIN, WITHOUT CONTRAST CLINICAL [...] MDReport Verified Date/Time: 06/27/2018 23:42:40 Reading Location: [address] Neuro Reading Room URINALYSIS W/ REFLEX URINE [id number] 21:57:00 Test Item Value Reference Range Comments COLOR (BEAKER) (test zxxv=451) Colorless CLARITY (BEAKER) (test gisd=265) Clear SPECIFIC GRAVITY UA (BEAKER) (test lexc=904) 1.001 1.001-1.035 PH UA (BEAKER) (test pjpc=359) 7.5 5.0-8.0 PROTEIN UA (BEAKER) (test glwd=681) Negative Negative GLUCOSE UA (BEAKER) (test cdpv=496) Negative Negative KETONES UA (BEAKER) (test vake=092) Negative Negative BILIRUBIN UA (BEAKER) (test bzse=217) Negative Negative BLOOD UA (BEAKER) (test bxjq=496) Trace Negative NITRITE UA (BEAKER) (test crnj=032) Negative Negative LEUKOCYTE ESTERASE UA (BEAKER) (test mxln=764) Negative Negative UROBILINOGEN UA (BEAKER) (test jckz=589) 0.2 mg/dL 0.2-1.0 RBC UA (BEAKER) (test qytk=004) 1 /HPF WBC UA (BEAKER) (test gnzw=930) < /HPF SOURCE(BEAKER) (test wytt=8871) RAD, CHEST, 1 VIEW, NON [id number] 21:14:00Reason for exam:->LOSS OF CONSCIOUSNESSShould this be performed at the bedside?->YesFINAL REPORT INDICATION: LOSS OF CONSCIOUSNESS COMPARISON: None TECHNIQUE: Single frontal view of the chest. FINDINGS: Lungs and pleura: Clear lungs. No effusion.Heart and mediastinum: Normal heart size. Unremarkable mediastinal contours.Osseous structures: No acute abnormality.Other: None. IMPRESSION: No acute intrathoracic abnormality. Signed: Christina Gutierrez MDReport Verified Date/Time: 06/27/2018 21:14:39 Reading Location: [address] Neuro Reading Room [id number] 20:36:00 Test Item Value Reference Range Comments MAGNESIUM (BEAKER) (test iaqd=956) 2.0 mg/dL 1.6-2.6 [id number] 20:36:00 Test Item Value Reference Range Comments PHOSPHORUS (BEAKER) (test ntsl=618) 2.9 mg/dL 2.3-4.7 TROPONIN [id number] 19:30:00 Test Item Value Reference Range Comments TROPONIN I (BEAKER) (test shrt=420) < ng/mL 0.00-0.03 Troponin I (TnI) levels [...] Range Comments B-TYPE NATRIURETIC PEPTIDE (BEAKER) (test euzf=869) 94 pg/mL 0-100 BASIC METABOLIC [id number] 19:28:00 Test Item Value Reference Range Comments SODIUM (BEAKER) (test 138 meq/L 136-145 lgnv=222) POTASSIUM (BEAKER) (test 4.0 meq/L 3.5-5.1 fanx=624) CHLORIDE (BEAKER) (test 103 meq/L 98-107 vzru=997) CO2 (BEAKER) (test 29 meq/L 22-29 ynux=885) BLOOD UREA NITROGEN 15 mg/dL 7-21 (BEAKER) (test njhm=959) CREATININE (BEAKER) (test 1.15 mg/dL 0.57-1.25 nfqd=755) GLUCOSE RANDOM (BEAKER) 117 mg/dL 70-105 (test xzna=054) CALCIUM (BEAKER) (test 9.0 mg/dL 8.4-10.2 sfow=473) EGFR (BEAKER) (test mL/min/1.73 sq m INSUFFICIENT CLINICAL DATA mhes=3975) TO CALCULATE ESTIMATED GFR. [id number] 19:24:00 Test Item Value Reference Range Comments LIPASE (BEAKER) (test nlox=776) 229 U/L 8-78 HEPATIC FUNCTION [id number] 19:24:00 Test Item Value Reference Range Comments TOTAL PROTEIN (BEAKER) (test eieb=840) 6.0 gm/dL 6.0-8.3 ALBUMIN (BEAKER) (test qfwz=1072) 3.7 g/dL 3.5-5.0 BILIRUBIN TOTAL (BEAKER) (test ayyj=910) 0.5 mg/dL 0.2-1.2 BILIRUBIN DIRECT (BEAKER) (test yfgd=869) 0.3 mg/dL 0.1-0.5 ALKALINE PHOSPHATASE (BEAKER) (test xrra=381) 78 U/L 40-150 AST (SGOT) (BEAKER) (test vcpq=971) 32 U/L 5-34 ALT (SGPT) (BEAKER) (test abaz=358) 6 U/L 6-55 CBC W/PLT COUNT & AUTO [id number] 19:05:00 Test Item Value Reference Range Comments WHITE BLOOD CELL COUNT (BEAKER) (test oxcd=816) 4.6 K/ L 3.5-10.5 RED BLOOD CELL COUNT (BEAKER) (test duzk=483) 3.38 M/ L 4.63-6.08 HEMOGLOBIN (BEAKER) (test yjgg=705) 10.8 GM/DL 13.7-17.5 HEMATOCRIT (BEAKER) (test akkb=677) 33.4 % 40.1-51.0 MEAN CORPUSCULAR VOLUME (BEAKER) (test nler=005) 98.8 fL 79.0-92.2 MEAN CORPUSCULAR HEMOGLOBIN (BEAKER) (test 32.0 pg 25.7-32.2 jmlm=237) MEAN CORPUSCULAR HEMOGLOBIN CONC (BEAKER) (test 32.3 GM/DL 32.3-36.5 jpzx=494) RED CELL DISTRIBUTION WIDTH (BEAKER) (test 12.8 % 11.6-14.4 nxzj=540) PLATELET COUNT (BEAKER) (test nksc=488) 160 K/CU MM 150-450 MEAN PLATELET VOLUME (BEAKER) (test yujr=104) 9.2 fL 9.4-12.4 NUCLEATED RED BLOOD CELLS (BEAKER) (test 0 /100 WBC 0-0 toli=265) NEUTROPHILS RELATIVE PERCENT (BEAKER) (test 52 % zqhx=312) LYMPHOCYTES RELATIVE PERCENT (BEAKER) (test 35 % urwp=012) MONOCYTES RELATIVE PERCENT (BEAKER) (test 11 % irko=541) EOSINOPHILS RELATIVE PERCENT (BEAKER) (test 3 % zyhr=900) BASOPHILS RELATIVE PERCENT (BEAKER) (test 0 % kxja=212) NEUTROPHILS ABSOLUTE COUNT (BEAKER) (test 2.34 K/ L 1.78-5.38 tigx=837) LYMPHOCYTES ABSOLUTE COUNT (BEAKER) (test 1.57 K/ L 1.32-3.57 ezbd=366) MONOCYTES ABSOLUTE COUNT (BEAKER) (test 0.48 K/ L 0.30-0.82 poui=514) EOSINOPHILS ABSOLUTE COUNT (BEAKER) (test 0.14 K/ L 0.04-0.54 odpl=215) BASOPHILS ABSOLUTE COUNT (BEAKER) (test 0.02 K/ L 0.01-0.08 jyii=497) IMMATURE GRANULOCYTES-RELATIVE PERCENT (BEAKER) 0 % 0-1 (test frij=0784)
[2018-11-07 10:56] LABS: Absolute Lymphocytes (CBC) 1.4 K/uL (0.7-4.9); Basophils % 0.5 % (0-1.3); Eosinophils % 1.6 % (0-4.4); Hematocrit 34.6 % (39.6-49.0); Lymphocytes % 25.8 % (15.3-44.8); MPV 7.9 fL (7.6-11.3); Monocytes % 10.5 % (3.3-12.3); RBC Red Blood Cell Count 3.63 M/uL (4.33-5.43)
[2018-11-07 11:19] LABS: Albumin 3.6 g/dL (3.4-5.0); Bilirubin Direct 0.1 mg/dL (0-0.2); Bilirubin Total 0.4 mg/dL (0.2-1.0); Potassium 4.1 mmol/L (3.5-5.1); Protein, Total 6.5 g/dL (6.4-8.2)
--- NOTE | 2018-11-07 12:17 | RAD REPORT ---
EXAM DESCRIPTION: CT - Abdomen Pelvis W Contrast - 11/07/2018 12:07 pm CLINICAL HISTORY: Abdominal pain, constipation COMPARISON: CT imaging May 2018 TECHNIQUE: Biphasic, helical CT imaging of the abdomen and pelvis was performed following 100 ml non -ionic IV contrast. Oral contrast was administered. All CT scans are performed using dose optimization technique as appropriate and may include automated exposure control or mA/KV adjustment according to patient size. FINDINGS: No suspicious findings in the lung bases. The liver, spleen, and pancreas show no suspicious findings. Gallbladder and biliary tree are also wi thout suspicious finding. Symmetric renal function is seen with no hydronephrosis or suspicious renal mass. No pyelonephritis o r acute parenchymal process. Right renal calyx calcification unchanged from comparison. Left renal cy st is stable. Partially filled urinary bladder shows no suspicious finding. No adrenal abnormalities. Fundus and body aguirre of the stomach are prominent. This is believed to be artifact of absent intralu arron content. Likelihood of a true gastric abnormality is felt to be low. No dilated small bowel loo ps or focal small bowel abnormality. Contrast has reached the ascending colon. No appendicitis findin gs. Patient has a large volume of stool distending the entirety of the colon. No free air, free fluid or inflammatory stranding. No mass or bulky lymphadenopathy. The bowel con taining right inguinal hernia seen in May is no longer present. No surgical clips are present. T his is presumed to have been surgically corrected. Disc and bony degenerative changes are present. Dense vascular calcifications are present. Patient ma y well have common iliac artery stenoses. IMPRESSION: Large stool volume distending the entirety of the colon. No colon mass or acute colon pr ocess seen. No bowel obstruction, free air or surgically emergent finding.
[2018-11-07 12:58] LABS: Urine Blood NEGATIVE (NEG); Urine Glucose NEGATIVE (NEG); Urine Protein NEGATIVE (NEG); Urine Specific Gravity 1.015 (1.005-1.030); Urine pH 5.5 (5.0-7.0)
[2018-11-07 13:07] LABS: Urine Bacteria NONE SEEN /HPF (NONE SEEN); Urine Culture Reflex Order NOT NEEDED; Urine RBC <5 /HPF (NONE SEEN)
--- NOTE | 2018-11-07 13:23 | ER ---
Nurse's Notes [facility] Name: Sumanth Louis Age: 78 yrs Sex: Male : 1940 Arrival Date: 11/07/2018 Time: 10:11 Bed 19 Private MD: Rafa Barnes Diagnosis: Constipation Presentation: 11/07 10:24 Presenting complaint: Child states: Daughter in law/ POA states pt has been CO abd pain la1 for the past couple days. Has recently started iron and unsure of last BM but has had other abd problems in the past. Transition of care: patient was not received from another setting of care. Onset of symptoms was November 07, 2018. Risk Assessment: Do you want to hurt yourself or someone else? Patient reports no desire to harm self or others. Initial Sepsis Screen: Does the patient meet any 2 criteria? No. Patient's initial sepsis screen is negative. Does the patient have a suspected source of infection? No. Patient's initial sepsis screen is negative. Care prior to arrival: None. 10:24 Method Of Arrival: Wheelchair la1 10:24 Acuity: IRINA 3 la1 Historical: - Allergies: 10:26 No Known Allergies; la1 - Home Meds: 11:25 aspirin 81 mg Oral TbEC 1 tab once daily [Active]; tw2 - PMHx: 10:26 Anemia; Anxiety; Bilateral deafness; Bilateral degeneration of macula; CHF; chronic la1 pain syndrome; Dementia; Hernia; Hypertension; LOCALIZED EDEMA; osteoarthritis; PAD; Parkinsons; Rhinitis; right inguinal hernia; Vitamin D3 deficiency; - Immunization history:: Adult Immunizations up to date. - Social history:: Smoking status: Patient/guardian denies using tobacco. - Ebola Screening: : No symptoms or risks identified at this time. Screenin:21 Abuse screen: Denies threats or abuse. Nutritional screening: No deficits noted. tw2 Tuberculosis screening: No symptoms or risk factors identified. Fall Risk Secondary diagnosis (15 points) impaired mobility. Assessment: 10:50 General: Appears in no apparent distress. Behavior is calm, cooperative, appropriate tw2 for age. Pain: Complains of pain in abdomen. Neuro: Level of Consciousness is awake, obeys commands, Oriented to person, place. Cardiovascular: Heart tones S1 S2 Patient's skin is warm and dry. Respiratory: Airway is patent Respiratory effort is even, unlabored, Respiratory pattern is regular, symmetrical. GI: Abdomen is flat, Bowel sounds present X 4 quads. Abd is soft X 4 quads Parent/caregiver reports the patient having constipation. : No signs and/or symptoms were reported regarding the genitourinary system. EENT: No signs and/or symptoms were reported regarding the EENT system. Derm: Skin is intact, Skin is dry. Musculoskeletal: Range of motion: intact in all extremities. 11:19 Reassessment: Patient appears in no apparent distress at this time. No changes from tw2 previously documented assessment. Patient and/or family updated on plan of care and expected duration. Pain level reassessed. 12:26 Reassessment: Patient appears in no apparent distress at this time. No changes from tw2 previously documented assessment. Patient and/or family updated on plan of care and expected duration. Pain level reassessed. Vital Signs: 10:26 BP 100 / 51; Pulse 65; Resp 16; Temp 98.4; Pulse Ox 98% on R/A; Weight 58.97 kg; la1 11:15 BP 150 / 72; Pulse 58; Resp 17; Pulse Ox 100% on R/A; tw2 12:25 BP 155 / 74; Pulse 57; Resp 17; Pulse Ox 100% on R/A; tw2 13:31 BP 166 / 72; Pulse 72; Resp 17; Pulse Ox 100% on R/A; tw2 ED Course: 10:11 Patient arrived in ED. as 10:11 Rafa Barnes DO is Private Physician. as 10:25 Triage completed. la1 10:26 Arm band placed on left wrist. la1 10:30 Bed in low position. Call light in reach. Side rails up X2. Adult w/ patient. Cardiac tw2 monitor on. Pulse ox on. NIBP on. 10:31 Romel Chacon NP is PHCP. pm1 10:31 Arvin Armendariz MD is Attending Physician. pm1 10:46 Initial lab(s) drawn, by me, sent to lab. Inserted saline lock: 20 gauge in right ms forearm, using aseptic technique. Blood collected. 11:17 Marci Marr, SOCOR[place] is Primary Nurse. tw2 12:06 CT Abd/Pelvis - PO and IV Contrast In Process Unspecified. EDMS 12:27 Urine Microscopic Only Sent. tw2 13:32 No provider procedures requiring assistance completed. IV discontinued, intact, tw2 bleeding controlled, No redness/swelling at site. Pressure dressing applied. Administered Medications: No medications were administered Outcome: 13:22 Discharge ordered by MD. pm1 13:32 Discharged to home via wheelchair, with family. tw2 13:32 Condition: stable 13:32 Discharge instructions given to patient, family, Instructed on discharge instructions, follow up and referral plans. medication usage, Demonstrated understanding of instructions, follow-up care, medications, Prescriptions given X 1. 13:32 Patient left the ED. tw2 Signatures: Dispatcher [employer] EDMS Josselin Jamsine Maria ms Roscoe Montejo, RN RN la1 Romel Chacon NP INSTITUTIONAL RESEARCH COORDINATOR pm1 Marci Marr RN RN tw2
--- NOTE | 2018-11-07 13:24 | EDPHYS ---
Physician Documentation [facility] Name: Sumanth Louis Age: 78 yrs Sex: Male : 1940 Arrival Date: 11/07/2018 Time: 10:11 Bed 19 Private MD: Rafa Barnes ED Physician Arvin Armendariz HPI: 11/07 10:48 This 78 yrs old Male presents to ER via Wheelchair with complaints of pm1 Abdominal Pain. 10:48 The patient presents with abdominal pain that is diffuse. Onset: The symptoms/episode pm1 began/occurred 3 day(s) ago. The symptoms do not radiate. Associated signs and symptoms: none. Pertinent negatives: nausea, vomiting, and diarrhea, chest pain, constipation, dysuria, fever, shortness of breath. The symptoms are described as achy. Modifying factors: The symptoms are alleviated by nothing, the symptoms are aggravated by possible iron supplements started 7 days ago. Severity of pain: in the emergency department the pain is actually worse. The patient has not recently seen a physician. 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 - Social history:: Smoking status: Patient/guardian denies using tobacco. - Ebola Screening: : No symptoms or risks identified at this time. ROS: 10:48 Constitutional: Negative for fever, chills, and weight loss, Eyes: Negative for injury, pm1 pain, redness, and discharge, ENT: Negative for injury, pain, and discharge, Neck: Negative for injury, pain, and swelling, Cardiovascular: Negative for chest pain, palpitations, and edema, Respiratory: Negative for shortness of breath, cough, wheezing, and pleuritic chest pain. 10:48 Back: Negative for injury and pain, MS/Extremity: Negative for injury and deformity, Skin: Negative for injury, rash, and discoloration, Neuro: Negative for headache, weakness, numbness, tingling, and seizure. 10:48 Abdomen/GI: Positive for abdominal pain, constipation, Negative for nausea and vomiting, diarrhea. Exam: 10:48 Constitutional: This is a well developed, well nourished patient who is awake, alert, pm1 and in no acute distress. Head/Face: Normocephalic, atraumatic. Eyes: Pupils equal round and reactive to light, extra-ocular motions intact. Lids and lashes normal. Conjunctiva and sclera are non-icteric and not injected. Cornea within normal limits. Periorbital areas with no swelling, redness, or edema. Chest/axilla: Normal chest wall appearance and motion. Nontender with no deformity. No lesions are appreciated. Cardiovascular: Regular rate and rhythm with a normal S1 and S2. No gallops, murmurs, or rubs. Normal PMI, no JVD. No pulse deficits. Respiratory: Lungs have equal breath sounds bilaterally, clear to auscultation and percussion. No rales, rhonchi or wheezes noted. No increased work of breathing, no retractions or nasal flaring. Abdomen/GI: Soft, non-tender, with normal bowel sounds. No distension or tympany. No guarding or rebound. No evidence of tenderness throughout. Back: No spinal tenderness. No costovertebral tenderness. Full range of motion. Skin: Warm, dry with normal turgor. Normal color with no rashes, no lesions, and no evidence of cellulitis. MS/ Extremity: Pulses equal, no cyanosis. Neurovascular intact. Full, normal range of motion. 10:48 Neuro: Orientation: is normal, Motor: is normal, moves all fours. Vital Signs: 10:26 BP 100 / 51; Pulse 65; Resp 16; Temp 98.4; Pulse Ox 98% on R/A; Weight 58.97 kg; la1 11:15 BP 150 / 72; Pulse 58; Resp 17; Pulse Ox 100% on R/A; tw2 12:25 BP 155 / 74; Pulse 57; Resp 17; Pulse Ox 100% on R/A; tw2 13:31 BP 166 / 72; Pulse 72; Resp 17; Pulse Ox 100% on R/A; tw2 MDM: 10:31 Patient medically screened. pm1 13:21 Data reviewed: vital signs. Data interpreted: Pulse oximetry: on room air is 100 %. pm1 Interpretation: normal. Counseling: I had a detailed discussion with the patient and/or guardian regarding: the historical points, exam findings, and any diagnostic results supporting the discharge/admit diagnosis, lab results, radiology results, the need for outpatient follow up, to return to the emergency department if symptoms worsen or persist or if there are any questions or concerns that arise at home. 11/07 10:40 Order name: Basic Metabolic Panel; Complete Time: 11:34 pm11/07 10:40 Order name: CBC with Diff; Complete Time: :34 pm11/07 10:40 Order name: Creatinine for Radiology; Complete Time: :34 pm11/07 10:40 Order name: Hepatic Function; Complete Time: :34 pm11/07 10:40 Order name: Lipase; Complete Time: 11:34 pm11/07 10:40 Order name: Urine Microscopic Only; Complete Time: 13:20 pm11/07 10:40 Order name: IV Saline Lock; Complete Time: 10:45 pm11/07 10:40 Order name: Labs collected and sent; Complete Time: 10:45 pm11/07 10:40 Order name: CT Abd/Pelvis - PO and IV Contrast; Complete Time: 12:25 pm11/07 12:14 Order name: Urine Dipstick--Ancillary (enter results); Complete Time: 13:20 em1 Administered Medications: No medications were administered Disposition: 15:05 Co-signature as Attending Physician, Arvin Armendariz MD. rn Disposition: 11/07/18 13:22 Discharged to Home. Impression: Constipation. - Condition is Stable. - Discharge Instructions: Constipation, Adult. - Prescriptions for Lactulose 10 gram/15 mL Oral Solution - take 30 milliliter by ORAL route once daily; 300 milliliter. - Medication Reconciliation Form, Thank You Letter, Antibiotic Education, Prescription Opioid Use form. - Follow up: Emergency Department; When: As needed; Reason: Worsening of condition. Follow up: Private Physician; When: 2 - 3 days; Reason: Recheck today's complaints, Continuance of care, Re-evaluation by your physician. - Problem is new. - Symptoms have improved. Signatures: Dispatcher [employer] EDArvin Luz MD MD rn Attema, Lee, RN RN la1 Romel Chacon, PHYSICAL EDUCATION SPECIALIST PHYSICAL EDUCATION SPECIALIST pm1 Marci Marr RN RN tw2 Corrections: (The following items were deleted from the chart) 13:32 13:22 11/07/2018 13:22 Discharged to Home. Impression: Constipation. Condition is tw2 Stable. Forms are Medication Reconciliation Form, Thank You Letter, Antibiotic Education, Prescription Opioid Use. Follow up: Emergency Department; When: As needed; Reason: Worsening of condition. Follow up: Private Physician; When: 2 - 3 days; Reason: Recheck today's complaints, Continuance of care, Re-evaluation by your physician. Problem is new. Symptoms have improved. pm1
[2018-11-07 14:14] VITALS: TEMP 98.4
[2018-11-07 14:15] VITALS: O2SAT 100
[2018-11-07 14:19] VITALS: BP 166/72
== END 2018-11-07 13:32 | disposition home or self-care (01) ==
LOC: ER 10:10
DX: K59.00 Constipation, unspecified (principal)
CPT/HCPCS: 85025; 80048; 36415; 80076; 83690; 74177; 99284; Q9967; 81003; 81015

== ENCOUNTER 2018-11-26 09:50 | Emergency (ER) | payer MEDICARE ==
--- OUTSIDE RECORDS SUMMARY | 2018-11-26 09:53 | XMS REPORT | Clinical Summary ---
:1940 Author Organization [facility] Address [address] [place] [address] Care Team Providers Name Role Phone Rafa [...] New onset headache; Abby Love, Parkinson's disease ([facility]); Hypotension, unspecified hypotension type; Joann, Yashash Volume depletion; D NSVT (nonsustained ventricular tachycardia) ([facility]) Lacho Díaz MD 06/27/2018 Orders Only General Internal Medicine 06/27/2018 Travel after 11/25/2017 Social History Tobacco Use Types Packs/Day Years [...] Taken Blood Pressure 106/55 07/01/2018 11:12 AM SCANNING SUPERVISOR Pulse 58 07/01/2018 11:12 AM SCANNING SUPERVISOR Temperature 35.9 C (96.6 F) 07/01/2018 11:12 AM SCANNING SUPERVISOR Respiratory Rate 22 07/01/2018 11:12 AM SCANNING SUPERVISOR Oxygen Saturation 100% 07/01/2018 11:12 AM SCANNING SUPERVISOR Inhaled Oxygen Concentration - - Weight 60.3 kg (133 lb) 06/28/2018 12:30 AM SCANNING SUPERVISOR Height 162.6 cm (5' 4") 06/28/2018 12:30 AM SCANNING SUPERVISOR Body Mass Index 22.83 06/28/2018 12:30 AM SCANNING SUPERVISOR Plan of Treatment Not on file Procedures Procedure Name Priority Date/Time Associated Comments Diagnosis RHYTHM STRIP - SCAN 07/04/2018 11:33 AM SCANNING SUPERVISOR REPORT OF PROCEDURE - 07/01/2018 4:04 ENDOSCOPY SCAN PM SCANNING SUPERVISOR COMPREHENSIVE METABOLIC Routine 07/01/2018 12:47 Results for this PANEL PM SCANNING SUPERVISOR procedure are in the results section. LIPASE Routine 07/01/2018 12:47 Results for this PM SCANNING SUPERVISOR procedure are in the results section. MAGNESIUM Routine 07/01/2018 12:47 Results for this PM SCANNING SUPERVISOR procedure are in the results section. ECHOCARDIOGRAM REPORT - 06/30/2018 9:21 SCAN PM SCANNING SUPERVISOR PERIPHERAL VASCULAR 06/30/2018 9:20 REPORT - SCAN PM SCANNING SUPERVISOR 2D ECHO W/ DOPPLER ONOFRE 06/30/2018 2:08 Results for this (CW/PW/COLOR) PM SCANNING SUPERVISOR procedure are in the results section. CBC W/PLT COUNT & AUTO Routine 06/30/2018 5:01 Results for this DIFFERENTIAL AM SCANNING SUPERVISOR procedure are in the results section. MAGNESIUM Routine 06/30/2018 5:01 Results for this AM SCANNING SUPERVISOR procedure are in the results section. CBC W/PLT COUNT & AUTO Routine 06/30/2018 5:01 Results for this DIFFERENTIAL AM SCANNING SUPERVISOR procedure are in the results section. BASIC METABOLIC PANEL Routine 06/30/2018 5:01 Results for this (7) AM SCANNING SUPERVISOR procedure are in the results section. CAROTID DOPPLER Routine 06/29/2018 1:50 Results for this BILATERAL PM SCANNING SUPERVISOR procedure are in the results section. CBC W/PLT COUNT & AUTO Routine 06/29/2018 5:18 Results for this DIFFERENTIAL AM SCANNING SUPERVISOR procedure are in the results section. MAGNESIUM Routine 06/29/2018 5:18 Results for this AM SCANNING SUPERVISOR procedure are in the results section. CBC W/PLT COUNT & AUTO Routine 06/29/2018 5:18 Results for this DIFFERENTIAL AM SCANNING SUPERVISOR procedure are in the results section. BASIC METABOLIC PANEL Routine 06/29/2018 5:18 Results for this (7) AM SCANNING SUPERVISOR procedure are in the results section. US ABDOMEN LIMITED Routine 06/29/2018 12:00 Results for this AM SCANNING SUPERVISOR procedure are in the results section. ECG 12-LEAD Routine 06/28/2018 10:01 Results for this AM SCANNING SUPERVISOR procedure are in the results section. BLOOD CULTURE Routine 06/28/2018 5:17 Results for this AM SCANNING SUPERVISOR procedure are in the results section. CBC W/PLT COUNT & AUTO Routine 06/28/2018 5:09 Results for this DIFFERENTIAL AM SCANNING SUPERVISOR procedure are in the results section. CBC W/PLT COUNT & AUTO Routine 06/28/2018 5:09 Results for this DIFFERENTIAL AM SCANNING SUPERVISOR procedure are in the results section. BASIC METABOLIC PANEL Routine 06/28/2018 5:09 Results for this (7) AM SCANNING SUPERVISOR procedure are in the results section. BLOOD CULTURE Routine 06/28/2018 5:09 Results for this AM SCANNING SUPERVISOR procedure are in the results section. CT BRAIN WITHOUT IV STAT 06/27/2018 11:35 Results for this CONTRAST PM SCANNING SUPERVISOR procedure are in the results section. URINALYSIS W/ REFLEX STAT 06/27/2018 9:28 Results for this URINE CULTURE PM SCANNING SUPERVISOR procedure are in the results section. XR CHEST 1 VIEW STAT 06/27/2018 8:41 Results for this PORTABLE/BEDSIDE PM SCANNING SUPERVISOR procedure are in the results section. ECG 12-LEAD Routine 06/27/2018 7:09 PM SCANNING SUPERVISOR Procedure Note - Interface, External Ris In - 06/27/2018 7:45 PM SCANNING SUPERVISOR Ventricular Rate 56 BPM Atrial Rate 56 BPM P-R Interval 128 ms QRS Duration 86 ms Q-T Interval 470 ms QTC Calculation(Bazett) 453 ms P [place] 1 degrees R [place] -3 degrees T [place] 39 degrees Junctional rhythm Abnormal ECG No previous ECGs available ECG 12-LEAD STAT 06/27/2018 7:09 PM SCANNING SUPERVISOR CBC W/PLT COUNT & AUTO STAT 06/27/2018 6:55 PM SCANNING SUPERVISOR Results for this DIFFERENTIAL procedure are in the results section. PHOSPHORUS STAT 06/27/2018 6:55 PM SCANNING SUPERVISOR MAGNESIUM STAT 06/27/2018 6:55 PM SCANNING SUPERVISOR HEPATIC FUNCTION PANEL STAT 06/27/2018 6:55 PM SCANNING SUPERVISOR LIPASE STAT 06/27/2018 6:55 PM SCANNING SUPERVISOR TROPONIN I STAT 06/27/2018 6:55 PM SCANNING SUPERVISOR B-TYPE NATRIURETIC FACTOR STAT 06/27/2018 6:55 PM SCANNING SUPERVISOR Results for this (BNP) procedure are in the results section. BASIC METABOLIC PANEL (7) STAT 06/27/2018 6:55 PM SCANNING SUPERVISOR CBC W/PLT COUNT & AUTO STAT 06/27/2018 6:55 PM SCANNING SUPERVISOR Results for this DIFFERENTIAL procedure are in the results section. ED ECG INTERPRETATION Routine 06/27/2018 6:41 PM SCANNING SUPERVISOR after 11/25/2017 Results RHYTHM STRIP - SCAN (07/04/2018 11:33 AM SCANNING SUPERVISOR) Narrative Performed At EKG-SCANNED (07/01/2018 4:04 PM SCANNING SUPERVISOR) Narrative Performed At Magnesium (07/01/2018 12:47 PM SCANNING SUPERVISOR)Only the most recent of4 resultswithin the time period is included. Magnesium 1.9 1.6 - 2.6 mg/dL [facility] Specimen Blood Performing Organization Address City/[facility] Phone Number [address] [address] [phone] [place] Lipase (07/01/2018 12:47 PM SCANNING SUPERVISOR)Only the most recent of2 resultswithin the time period is included. Lipase 521 (H) 8 - 78 U/L [facility] Specimen Blood Performing Organization Address City/[facility] Phone Number [address] [address] [place] Comprehensive metabolic panel (07/01/2018 12:47 PM SCANNING SUPERVISOR) Protein, Total 6.3 6.0 - 8.3 gm/dL [facility] Albumin 3.7 3.5 - 5.0 g/dL [facility] Alkaline Phosphatase 86 40 - 150 U/L [facility] Total Bilirubin 0.4 0.2 - 1.2 mg/dL [facility] Sodium 139 136 - 145 meq/L [facility] Potassium 4.1 3.5 - 5.1 meq/L [facility] Chloride 104 98 - 107 meq/L [facility] CO2 27 22 - 29 meq/L [facility] BUN 9 7 - 21 mg/dL [facility] Creatinine 1.06 0.57 - 1.25 mg/dL [facility] Glucose 104 70 - 105 mg/dL [facility] Calcium 9.1 8.4 - 10.2 mg/dL [facility] AST 19 5 - 34 U/L [facility] ALT <6 (L) 6 - 55 U/L [facility] EGFR 67Comment: ESTIMATED GFR mL/min/1.73 sq m [facility] IS NOT ACCURATE [facility] CREATININE CLEARANCE IN PREDICTING GLOMERULAR FILTRATION RATE. ESTIMATED GFR IS NOT APPLICABLE FOR DIALYSIS PATIENTS. Specimen Blood Performing Organization Address City/State/Zipcode Phone Number [facility] [address] [place] [address] CENTER ECHOCARDIOGRAM REPORT - SCAN (06/30/2018 9:21 PM SCANNING SUPERVISOR) Narrative Performed At PERIPHERAL VASCULAR REPORT - SCAN (06/30/2018 9:20 PM SCANNING SUPERVISOR) Narrative Performed At 2D Echo W/Doppler(CW/PW/Color) (06/30/2018 2:08 PM SCANNING SUPERVISOR) Ejection Fraction [facility] Specimen Narrative Performed At Transthoracic Echocardiography Report (TTE) [facility] Demographics Patient NameCARINA LOUIS Date of Study06/30/2018 Gender Male Visit [id number] Race Unknown [id number] Number Date of 1940 Juan AlbertoHANSEL RIVAS [...] External Ris In - 06/30/2018 5:20 PM SCANNING SUPERVISOR Transthoracic Echocardiography Report (TTE) Demographics Patient Name CARINA LOUIS Date of Study 06/30/2018 Gender Male Visit Number [id number] Race Unknown Room Number 2255 Number Date of 1940 Referring MICHELLE RIVAS Physician Age 78 year(s) Flower Arranger EL Hope, RDCS,RVT,RDMS Interpreting Odilon Velez MD [...] count + automated diff (06/30/2018 5:01 AM SCANNING SUPERVISOR)Only the most recent of4 resultswithin the time period is included. WBC 5.3 3.5 - 10.5 K/L [facility] RBC 3.16 (L) 4.63 - 6.08 M/L [facility] Hemoglobin 10.0 (L) 13.7 - 17.5 GM/DL [facility] Hematocrit 31.4 (L) 40.1 - 51.0 % [facility] MCV 99.4 (H) 79.0 - 92.2 fL [facility] MCH 31.6 25.7 - 32.2 pg [facility] MCHC 31.8 (L) 32.3 - 36.5 GM/DL [facility] RDW 12.6 11.6 - 14.4 % [facility] Platelets 148 (L) 150 - 450 K/CU MM [facility] MPV 9.8 9.4 - 12.4 fL [facility] nRBC 0 0 - 0 /100 WBC [facility] % Neutros 50 % [facility] % Lymphs 34 % [facility] % Monos 12 % [facility] % Eos 4 % [facility] % Baso 1 % [facility] # Neutros 2.60 1.78 - 5.38 K/L [facility] # Lymphs 1.76 1.32 - 3.57 K/L [facility] # Monos 0.65 0.30 - 0.82 K/L [facility] # Eos 0.20 0.04 - 0.54 K/L [facility] # Baso 0.03 0.01 - 0.08 K/L [facility] Immature Granulocytes-Relative 0 0 - 1 % [facility] Specimen Blood Performing Organization Address City/State/Zipcode Phone Number [facility] [address] [place] [address] CENTER Basic metabolic panel (06/30/2018 5:01 AM SCANNING SUPERVISOR)Only the most recent of4 resultswithin the time period is included. Sodium 138 136 - 145 meq/L [facility] Potassium 4.2 3.5 - 5.1 meq/L [facility] Chloride 107 98 - 107 meq/L [facility] CO2 25 22 - 29 meq/L [facility] BUN 9 7 - 21 mg/dL [facility] Creatinine 0.95 0.57 - 1.25 mg/dL [facility] Glucose 94 70 - 105 mg/dL [facility] Calcium 8.6 8.4 - 10.2 mg/dL [facility] EGFR 76Comment: ESTIMATED GFR IS mL/min/1.73 sq m [facility] NOT ACCURATE [facility] CLEARANCE IN PREDICTING GLOMERULAR FILTRATION RATE. ESTIMATED GFR IS NOT APPLICABLE FOR DIALYSIS PATIENTS. Specimen Blood Performing Organization Address City/State/Zipcode Phone Number [facility] [address] [place] [address] CENTER Carotid doppler bilateral (06/29/2018 1:50 PM SCANNING SUPERVISOR) Ejection [facility] ECHO [facility] Specimen Impressions Performed At Right Impression [facility] MKCKESSON [facility]ACS 1. There [...] Performed At LAB - Carotid Duplex Study [facility] Demographics Patient NameCARINA LOUISDate of Study 06/29/2018 78 Visit [id number] Male of 1940 [facility]erring [id number] Physician Flower Arranger Uziel Vogel RVT Physician Procedure Type of Study: Cerebral: Carotid, CAROTID DOPPLER, BILATERAL. Indications for Study:Right Carotid Bruit. Patient Status:Routine. Study Location:Portable. Technical Quality:Adequate visualization. Procedure Note Interface, External Ris In - 06/29/2018 10:14 PM [facility] LAB - Carotid Duplex Study Demographics Patient Name CARINA LOUIS Date of Study 06/29/2018 Age 78 Visit Number [id number] Gender Male Accession Number [id number] Date of 1940 Referring [facility] Room Number 2255 Physician Flower Arranger Uziel Vogel RVT Physician Procedure Type of [...] City/State/Zipcode Phone Number [facility] US abdomen limited (06/29/2018 12:00 AM SCANNING SUPERVISOR) Specimen Narrative Performed At FINAL REPORT [employer] This examination was made available for my [...] MD Report Verified Date/Time:07/01/2018 11:30:04 Reading Location: [address] Ultrasound Reading Room Procedure Note Interface, External Ris In - 07/01/2018 11:32 AM SCANNING SUPERVISOR FINAL REPORT This examination was made available [...] Report Verified Date/Time: 07/01/2018 11:30:04 Reading Location: [facility] P006 Ultrasound Reading Room Performing Organization Address City/State/Zipcode Phone Number [employer] ECG 12 lead (06/28/2018 10:01 AM SCANNING SUPERVISOR)Only the most recent of2 resultswithin the time period is included. Specimen Narrative Performed At Ventricular Rate 74 BPM [email or web address] Atrial Rate 74 BPM P-R Interval 136 ms QRS Duration 106 ms Q-T Interval 422 ms QTC Calculation(Bazett) 468 ms P [place] 40 degrees R [place] -5 degrees T [place] 45 degrees Normal sinus rhythm Normal ECG Confirmed by MIRZAI-TEHRANE, MD, MAJID ([id number]) on 06/28/2018 3:02:24 PM Procedure Note Interface, External Ris In - 06/28/2018 3:02 PM SCANNING SUPERVISOR Ventricular Rate 74 BPM Atrial Rate 74 BPM P-R Interval 136 ms QRS Duration 106 ms Q-T Interval 422 ms QTC Calculation(Bazett) 468 ms P [place] 40 degrees R [place] -5 degrees T [place] 45 degrees Normal sinus rhythm Normal ECG Confirmed by MD DOWNING MAJID ([id number]) on 06/28/2018 3:02:24 PM Performing Organization Address City/State/Zipcode Phone Number [employer] MUSE Blood Culture - Routine (Left Venipuncture) (06/28/2018 5:17 AM SCANNING SUPERVISOR)Only the most recent of2 resultswithin the time period is included. Result No growth in 5 days [facility] Specimen Blood Performing Organization Address City/[facility] [place] [place] [address] [phone] brain without IV contrast (06/27/2018 11:35 PM SCANNING SUPERVISOR) Specimen Narrative Performed At FINAL REPORT Flickr CT, BRAIN, WITHOUT CONTRAST CLINICAL INDICATION:Syncope/fainting COMPARISON: [...] MD Report Verified Date/Time:06/27/2018 23:42:40 Reading Location: [address] Neuro Reading Room Procedure Note Interface, External Ris In - 06/27/2018 11:44 PM SCANNING SUPERVISOR FINAL REPORT CT, BRAIN, WITHOUT CONTRAST CLINICAL [...] Report Verified Date/Time: 06/27/2018 23:42:40 Reading Location: [facility] [id number] Neuro Reading Room Performing Organization Address City/State/Zipcode Phone Number [facility] Urinalysis w/Microscopic + Reflex to Culture (06/27/2018 9:28 PM SCANNING SUPERVISOR) Color, UA Colorless [facility] Clarity, UA Clear [facility] Specific [place] [address], UA 1.001 1.001 - 1.035 [facility] pH, UA 7.5 5.0 - 8.0 [facility] Protein, UA Negative Negative [facility] Glucose, UA Negative Negative [facility] Ketones, UA Negative Negative [facility] Bilirubin, UA Negative Negative [facility] Blood, UA Trace (A) Negative [facility] Nitrite, UA Negative Negative [facility] Leukocytes, UA Negative Negative [facility] Urobilinogen, UA 0.2 0.2 - 1.0 mg/dL [facility] RBC, UA 1 /HPF [facility] WBC, UA <1 /HPF [facility] Specimen Source [facility] Specimen Urine Performing Organization Address City/State/Zipcode Phone Number [facility] [address] [place] [address] CENTER XR chest 1 view portable / bedside (06/27/2018 8:41 PM SCANNING SUPERVISOR) Specimen Narrative Performed At FINAL REPORT [facility] INDICATION: LOSS OF CONSCIOUSNESS COMPARISON: None TECHNIQUE: Single frontal view of the chest. FINDINGS: Lungs and pleura: Clear lungs. No effusion. Heart and mediastinum: Normal heart size. Unremarkable mediastinal contours. Osseous structures: No acute abnormality. Other: None. IMPRESSION: No acute intrathoracic abnormality. Signed: Nick Gutierrez MD Report Verified Date/Time:06/27/2018 21:14:39 Reading Location: [address] Neuro Reading Room Procedure Note Interface, External Ris In - 06/27/2018 9:16 PM SCANNING SUPERVISOR FINAL REPORT INDICATION: LOSS OF CONSCIOUSNESS COMPARISON: None TECHNIQUE: Single frontal view of the chest. FINDINGS: Lungs and pleura: Clear lungs. No effusion. Heart and mediastinum: Normal heart size. Unremarkable mediastinal contours. Osseous structures: No acute abnormality. Other: None. IMPRESSION: No acute intrathoracic abnormality. Signed: Nick Gutierrez MD Report Verified Date/Time: 06/27/2018 21:14:39 Reading Location: [facility] C0[facility] Neuro Reading Room Performing Organization Address City/State/Zipcode Phone Number RIS Troponin I (06/27/2018 6:55 PM SCANNING SUPERVISOR) Troponin I <0.01 0.00 - 0.03 ng/mL [facility] Specimen Blood Narrative Performed At Troponin I (TnI) levels must be interpreted [facility] in the context of the presenting [...] disease, and persistent tachyarrhythmia. Performing Organization Address City/[facility]/Zipcode Phone Number [address] [phone] CENTER Phosphorus (06/27/2018 6:55 PM SCANNING SUPERVISOR) Phosphorus 2.9 2.3 - 4.7 mg/dL [facility] Specimen Blood Performing Organization Address [facility] Phone Number [address] [address] [phone] CENTER B-type Natriuretic Factor (BNP) (06/27/2018 6:55 PM SCANNING SUPERVISOR) BNP 94 0 - 100 pg/mL [facility] Specimen Blood Performing Organization Address [facility] Phone Number [address] [address] [place] Hepatic function panel (06/27/2018 6:55 PM SCANNING SUPERVISOR) Protein, Total 6.0 6.0 - 8.3 gm/dL [facility] Albumin 3.7 3.5 - 5.0 g/dL [facility] Total Bilirubin 0.5 0.2 - 1.2 mg/dL [facility] Bilirubin, Direct 0.3 0.1 - 0.5 mg/dL [facility] Alkaline Phosphatase 78 40 - 150 U/L [facility] AST 32 5 - 34 U/L [facility] ALT 6 6 - 55 U/L [facility] Specimen Blood Performing Organization Address City/State/Zipcode Phone Number [facility] [address] [place], [place] [phone] CENTER ECG/EKG Interpretation (06/27/2018 6:41 PM SCANNING SUPERVISOR) Narrative Performed At Radha Corado MD 06/30/20186:52 AM ECG/EKG Interpretation Date/Time: 06/27/2018 8:06 PM Performed by: Radha Corado MD Authorized by: Radha Corado MD This ECG was not compared with previous ECG(s).The ECG is interpreted as sinus bradycardia. Rate is bradycardic. ST segments abnormal. T waves abnormal. [place] is normal. Clinical Impression: non-specific ECG after 11/25/2017 Insurance Payer Benefit Plan / Group Subscriber ID Type Phone Address [employer] - MEDICARE AARP/MEDICARE COMPLETE xxxxxxxxx [facility] ([place]) [place] [address] Advance Directives Patient has advance care planning documents, and code status on file. For more information, please contact:AJAY [address] [phone] Code Status Date Activated Date Inactivated Comments Full Code 06/27/2018 10:12 PM 07/01/2018 6:29 PM This code status was determined by: Patient
--- OUTSIDE RECORDS SUMMARY | 2018-11-26 09:54 | XMS REPORT ---
:1940 [facility] [address] [place] [address] Care Team Providers Name Role Phone GHULAM [...] code=TROPI) < 0.012 NG/ML 0.012-0.033 Q 6HRS. [id number] 03:54:00 Test Item Value Reference Range Comments TROPONIN-I (test code=TROPI) < 0.012 NG/ML 0.012-0.033 [id number] 21:09:00 Test Item Value Reference Range Comments TROPONIN-I (test code=TROPI) < 0.012 NG/ML 0.012-0.033 COMPREHENSIVE METABOLIC [id number] 17:26:00 Test Item Value Reference Range Comments [...] ALKALINE PHOSPHATASE (test 86 UNITS/L 38-126 code=ALKP) [id number] 17:26:00 Test Item Value Reference Range Comments PHOSPHOROUS (test code=PHOS) 3.4 MG/DL 2.5-4.5 [id number] 17:26:00 Test Item Value Reference Range Comments MAGNESIUM (test code=MAG) 2.3 MG/DL 1.6-2.3 TROPONIN I [id number] 17:09:00 Test Item Value Reference Range Comments TROPONIN I RAPID (test code=TROPIRAP) 0.01 NG/ML 0.00-0.05 CBC W/AUTO [id number] 17:09:00 Test Item Value Reference Range Comments [...] code=NRBC#) 0.00 K/mm3 0.0-0.1 - XR CHEST [id number] 16:56:00 Patient Name: CARINA SAMANIEGO Unit No: [id number] EXAMS: CPT CODE: [id number] XR CHEST 1V 39001 EXAMINATION: - XR CHEST 1V. LOCATION: B2. [...] (1655) CassPR7 Orig Print D/T: S: 07/28/2018 (8843) [facility] NAME: CARINA SAMANIEGO [place] PHYS: [place] [address] : 1940 AGE: 78 SEX: M LOC: Andrea.ERS PHONE #: [phone] EXAM DATE: 2018 STATUS: PRE ER FAX #: [phone] RADIOLOGY NO: PAGE 1 Signed ReportBLOOD [id number] 11:02:00 Test Item Value Reference Range Comments CULTURE (BEAKER) (test ndvb=2152) No growth in 5 days BLOOD [id number] 11:02:00 Test Item Value Reference Range Comments CULTURE (BEAKER) (test cdjf=2682) No growth in 5 days COMPREHENSIVE METABOLIC [id number] 13:41:00 Test Item Value Reference Range Comments TOTAL PROTEIN (BEAKER) 6.3 gm/dL 6.0-8.3 (test uogv=091) ALBUMIN (BEAKER) (test 3.7 g/dL 3.5-5.0 yarn=1623) ALKALINE PHOSPHATASE 86 U/L 40-150 (BEAKER) (test fomc=987) BILIRUBIN TOTAL (BEAKER) 0.4 mg/dL 0.2-1.2 (test pmdx=904) SODIUM (BEAKER) (test 139 meq/L 136-145 vffy=273) POTASSIUM (BEAKER) (test 4.1 meq/L 3.5-5.1 xldg=630) CHLORIDE (BEAKER) (test 104 meq/L 98-107 afxw=329) CO2 (BEAKER) (test 27 meq/L 22-29 aqfr=695) BLOOD UREA NITROGEN 9 mg/dL 7-21 (BEAKER) (test hcok=385) CREATININE (BEAKER) (test 1.06 mg/dL 0.57-1.25 ksgv=392) GLUCOSE RANDOM (BEAKER) 104 mg/dL 70-105 (test vcuy=213) CALCIUM (BEAKER) (test 9.1 mg/dL 8.4-10.2 pyoi=042) AST (SGOT) (BEAKER) (test 19 U/L 5-34 elpt=854) ALT (SGPT) (BEAKER) (test < U/L 6-55 sgls=702) EGFR (BEAKER) (test 67 mL/min/1.73 sq m ESTIMATED GFR IS NOT nrmm=4137) ACCURATE CREATININE CLEARANCE IN PREDICTING GLOMERULAR FILTRATION RATE. ESTIMATED GFR IS NOT APPLICABLE FOR DIALYSIS PATIENTS. [id number] 13:24:00 Test Item Value Reference Range Comments MAGNESIUM (BEAKER) (test zjcz=572) 1.9 mg/dL 1.6-2.6 [id number] 13:24:00 Test Item Value Reference Range Comments LIPASE (BEAKER) (test kxlt=041) 521 U/L 8-78 U/S, ABDOMINAL, [id number] 11:30:00Abdomen limited area? Add comment if clarification [...] Benjamin Verified Date/Time: 07/01/2018 11:30:04 Reading Location: [facility] [id number] Ultrasound Reading Room [id number] 06:07: 00 Test Item Value Reference Range Comments MAGNESIUM (BEAKER) (test tddg=834) 2.1 mg/dL 1.6-2.6 BASIC METABOLIC [id number] 06:07:00 Test Item Value Reference Range Comments SODIUM (BEAKER) (test 138 meq/L 136-145 zean=730) POTASSIUM (BEAKER) (test 4.2 meq/L 3.5-5.1 opcp=268) CHLORIDE (BEAKER) (test 107 meq/L 98-107 mruu=402) CO2 (BEAKER) (test 25 meq/L 22-29 yzbb=130) BLOOD UREA NITROGEN 9 mg/dL 7-21 (BEAKER) (test bzqb=043) CREATININE (BEAKER) (test 0.95 mg/dL 0.57-1.25 jvbv=458) GLUCOSE RANDOM (BEAKER) 94 mg/dL 70-105 (test ejce=347) CALCIUM (BEAKER) (test 8.6 mg/dL 8.4-10.2 gfre=716) EGFR (BEAKER) (test 76 mL/min/1.73 sq m ESTIMATED GFR IS NOT dbvh=3470) ACCURATE CREATININE CLEARANCE IN PREDICTING GLOMERULAR FILTRATION RATE. ESTIMATED GFR IS NOT APPLICABLE FOR DIALYSIS PATIENTS. CBC W/PLT COUNT & AUTO [id number] 06:04:00 Test Item Value Reference Range Comments WHITE BLOOD CELL COUNT (BEAKER) (test kbca=514) 5.3 K/ L 3.5-10.5 RED BLOOD CELL COUNT (BEAKER) (test jzng=630) 3.16 M/ L 4.63-6.08 HEMOGLOBIN (BEAKER) (test mgma=591) 10.0 GM/DL 13.7-17.5 HEMATOCRIT (BEAKER) (test oqwd=927) 31.4 % 40.1-51.0 MEAN CORPUSCULAR VOLUME (BEAKER) (test bsnt=850) 99.4 fL 79.0-92.2 MEAN CORPUSCULAR HEMOGLOBIN (BEAKER) (test 31.6 pg 25.7-32.2 rmdq=719) MEAN CORPUSCULAR HEMOGLOBIN CONC (BEAKER) (test 31.8 GM/DL 32.3-36.5 nefw=950) RED CELL DISTRIBUTION WIDTH (BEAKER) (test 12.6 % 11.6-14.4 spre=011) PLATELET COUNT (BEAKER) (test qwss=342) 148 K/CU MM 150-450 MEAN PLATELET VOLUME (BEAKER) (test vtsv=147) 9.8 fL 9.4-12.4 NUCLEATED RED BLOOD CELLS (BEAKER) (test 0 /100 WBC 0-0 ykyy=064) NEUTROPHILS RELATIVE PERCENT (BEAKER) (test 50 % noco=862) LYMPHOCYTES RELATIVE PERCENT (BEAKER) (test 34 % jopg=089) MONOCYTES RELATIVE PERCENT (BEAKER) (test 12 % tvxy=634) EOSINOPHILS RELATIVE PERCENT (BEAKER) (test 4 % wkej=473) BASOPHILS RELATIVE PERCENT (BEAKER) (test 1 % zcsy=402) NEUTROPHILS ABSOLUTE COUNT (BEAKER) (test 2.60 K/ L 1.78-5.38 lxee=156) LYMPHOCYTES ABSOLUTE COUNT (BEAKER) (test 1.76 K/ L 1.32-3.57 aofy=820) MONOCYTES ABSOLUTE COUNT (BEAKER) (test 0.65 K/ L 0.30-0.82 jzao=207) EOSINOPHILS ABSOLUTE COUNT (BEAKER) (test 0.20 K/ L 0.04-0.54 qfan=934) BASOPHILS ABSOLUTE COUNT (BEAKER) (test 0.03 K/ L 0.01-0.08 arau=503) IMMATURE GRANULOCYTES-RELATIVE PERCENT (BEAKER) 0 % 0-1 (test qeah=2134) [id number] 10:30:00 Test Item Value Reference Range Comments MAGNESIUM (BEAKER) (test phpg=067) 1.9 mg/dL 1.6-2.6 CBC W/PLT COUNT & AUTO [id number] 07:07:00 Test Item Value Reference Range Comments WHITE BLOOD CELL COUNT (BEAKER) (test xnon=142) 4.4 K/ L 3.5-10.5 RED BLOOD CELL COUNT (BEAKER) (test utcc=261) 3.32 M/ L 4.63-6.08 HEMOGLOBIN (BEAKER) (test ixih=331) 10.6 GM/DL 13.7-17.5 HEMATOCRIT (BEAKER) (test fbxg=187) 32.9 % 40.1-51.0 MEAN CORPUSCULAR VOLUME (BEAKER) (test wobl=842) 99.1 fL 79.0-92.2 MEAN CORPUSCULAR HEMOGLOBIN (BEAKER) (test 31.9 pg 25.7-32.2 kpun=467) MEAN CORPUSCULAR HEMOGLOBIN CONC (BEAKER) (test 32.2 GM/DL 32.3-36.5 hkas=365) RED CELL DISTRIBUTION WIDTH (BEAKER) (test 12.7 % 11.6-14.4 xysm=484) PLATELET COUNT (BEAKER) (test pgis=254) 145 K/CU MM 150-450 MEAN PLATELET VOLUME (BEAKER) (test ucgk=849) 10.1 fL 9.4-12.4 NUCLEATED RED BLOOD CELLS (BEAKER) (test 0 /100 WBC 0-0 ynkp=057) NEUTROPHILS RELATIVE PERCENT (BEAKER) (test 40 % msyd=120) LYMPHOCYTES RELATIVE PERCENT (BEAKER) (test 44 % thla=240) MONOCYTES RELATIVE PERCENT (BEAKER) (test 12 % zdsk=335) EOSINOPHILS RELATIVE PERCENT (BEAKER) (test 4 % zbjg=820) BASOPHILS RELATIVE PERCENT (BEAKER) (test 1 % degn=813) NEUTROPHILS ABSOLUTE COUNT (BEAKER) (test 1.74 K/ L 1.78-5.38 cetm=722) LYMPHOCYTES ABSOLUTE COUNT (BEAKER) (test 1.90 K/ L 1.32-3.57 pcdz=272) MONOCYTES ABSOLUTE COUNT (BEAKER) (test 0.54 K/ L 0.30-0.82 vjvf=683) EOSINOPHILS ABSOLUTE COUNT (BEAKER) (test 0.16 K/ L 0.04-0.54 grvo=371) BASOPHILS ABSOLUTE COUNT (BEAKER) (test 0.02 K/ L 0.01-0.08 sepp=803) IMMATURE GRANULOCYTES-RELATIVE PERCENT (BEAKER) 0 % 0-1 (test pzqn=8142) BASIC METABOLIC [id number] 06:31:00 Test Item Value Reference Range Comments SODIUM (BEAKER) (test 138 meq/L 136-145 akij=188) POTASSIUM (BEAKER) (test 3.7 meq/L 3.5-5.1 dihk=125) CHLORIDE (BEAKER) (test 107 meq/L 98-107 vosc=204) CO2 (BEAKER) (test 25 meq/L 22-29 eqra=530) BLOOD UREA NITROGEN 9 mg/dL 7-21 (BEAKER) (test yrls=749) CREATININE (BEAKER) (test 1.01 mg/dL 0.57-1.25 pwyw=886) GLUCOSE RANDOM (BEAKER) 81 mg/dL 70-105 (test adgb=615) CALCIUM (BEAKER) (test 8.7 mg/dL 8.4-10.2 mqzg=236) EGFR (BEAKER) (test 71 mL/min/1.73 sq m ESTIMATED GFR IS NOT wtkw=4573) ACCURATE CREATININE CLEARANCE IN PREDICTING GLOMERULAR FILTRATION RATE. ESTIMATED GFR IS NOT APPLICABLE FOR DIALYSIS PATIENTS. BASIC METABOLIC [id number] 06:27:00 Test Item Value Reference Range Comments SODIUM (BEAKER) (test 139 meq/L 136-145 scuf=319) POTASSIUM (BEAKER) (test 4.1 meq/L 3.5-5.1 icja=776) CHLORIDE (BEAKER) (test 106 meq/L 98-107 xahz=627) CO2 (BEAKER) (test 26 meq/L 22-29 xlpf=773) BLOOD UREA NITROGEN 10 mg/dL 7-21 (BEAKER) (test jvmj=981) CREATININE (BEAKER) (test 0.98 mg/dL 0.57-1.25 jwlm=461) GLUCOSE RANDOM (BEAKER) 78 mg/dL 70-105 (test nfqy=405) CALCIUM (BEAKER) (test 9.5 mg/dL 8.4-10.2 lobc=534) EGFR (BEAKER) (test mL/min/1.73 sq m INSUFFICIENT CLINICAL DATA sbbg=5637) TO CALCULATE ESTIMATED GFR. CBC W/PLT COUNT & AUTO [id number] 05:45:00 Test Item Value Reference Range Comments WHITE BLOOD CELL COUNT (BEAKER) (test rykx=673) 4.5 K/ L 3.5-10.5 RED BLOOD CELL COUNT (BEAKER) (test oldo=465) 3.71 M/ L 4.63-6.08 HEMOGLOBIN (BEAKER) (test qsii=737) 11.8 GM/DL 13.7-17.5 HEMATOCRIT (BEAKER) (test fwyy=903) 36.0 % 40.1-51.0 MEAN CORPUSCULAR VOLUME (BEAKER) (test idnn=941) 97.0 fL 79.0-92.2 MEAN CORPUSCULAR HEMOGLOBIN (BEAKER) (test 31.8 pg 25.7-32.2 pxsm=628) MEAN CORPUSCULAR HEMOGLOBIN CONC (BEAKER) (test 32.8 GM/DL 32.3-36.5 apxm=493) RED CELL DISTRIBUTION WIDTH (BEAKER) (test 12.6 % 11.6-14.4 yyqx=221) PLATELET COUNT (BEAKER) (test aycb=425) 170 K/CU MM 150-450 MEAN PLATELET VOLUME (BEAKER) (test jrts=205) 9.5 fL 9.4-12.4 NUCLEATED RED BLOOD CELLS (BEAKER) (test 0 /100 WBC 0-0 zylc=842) NEUTROPHILS RELATIVE PERCENT (BEAKER) (test 50 % iyct=374) LYMPHOCYTES RELATIVE PERCENT (BEAKER) (test 37 % phwa=289) MONOCYTES RELATIVE PERCENT (BEAKER) (test 10 % petm=037) EOSINOPHILS RELATIVE PERCENT (BEAKER) (test 3 % hvar=868) BASOPHILS RELATIVE PERCENT (BEAKER) (test 0 % jzqa=105) NEUTROPHILS ABSOLUTE COUNT (BEAKER) (test 2.23 K/ L 1.78-5.38 kqiu=240) LYMPHOCYTES ABSOLUTE COUNT (BEAKER) (test 1.67 K/ L 1.32-3.57 mdni=939) MONOCYTES ABSOLUTE COUNT (BEAKER) (test 0.44 K/ L 0.30-0.82 btfr=207) EOSINOPHILS ABSOLUTE COUNT (BEAKER) (test 0.15 K/ L 0.04-0.54 oeiq=233) BASOPHILS ABSOLUTE COUNT (BEAKER) (test 0.02 K/ L 0.01-0.08 gjcd=004) IMMATURE GRANULOCYTES-RELATIVE PERCENT (BEAKER) 0 % 0-1 (test vxrr=0507) CT, BRAIN, WITHOUT [id number] 23:42:00FINAL REPORT CT, BRAIN, WITHOUT CONTRAST CLINICAL [...] MDReport Verified Date/Time: 06/27/2018 23:42:40 Reading Location: [address] Neuro Reading Room URINALYSIS W/ REFLEX URINE [id number] 21:57:00 Test Item Value Reference Range Comments COLOR (BEAKER) (test bzlq=284) Colorless CLARITY (BEAKER) (test dumm=478) Clear SPECIFIC GRAVITY UA (BEAKER) (test irjc=191) 1.001 1.001-1.035 PH UA (BEAKER) (test qzgl=845) 7.5 5.0-8.0 PROTEIN UA (BEAKER) (test vhwv=191) Negative Negative GLUCOSE UA (BEAKER) (test isdf=640) Negative Negative KETONES UA (BEAKER) (test qhev=314) Negative Negative BILIRUBIN UA (BEAKER) (test coal=776) Negative Negative BLOOD UA (BEAKER) (test gyve=265) Trace Negative NITRITE UA (BEAKER) (test iglb=650) Negative Negative LEUKOCYTE ESTERASE UA (BEAKER) (test ukvn=146) Negative Negative UROBILINOGEN UA (BEAKER) (test atna=981) 0.2 mg/dL 0.2-1.0 RBC UA (BEAKER) (test wkay=992) 1 /HPF WBC UA (BEAKER) (test uehq=905) < /HPF SOURCE(BEAKER) (test itzg=7635) RAD, CHEST, 1 VIEW, NON [id number] 21:14:00Reason for exam:->LOSS OF CONSCIOUSNESSShould this be performed at the bedside?->YesFINAL REPORT INDICATION: LOSS OF CONSCIOUSNESS COMPARISON: None TECHNIQUE: Single frontal view of the chest. FINDINGS: Lungs and pleura: Clear lungs. No effusion.Heart and mediastinum: Normal heart size. Unremarkable mediastinal contours.Osseous structures: No acute abnormality.Other: None. IMPRESSION: No acute intrathoracic abnormality. Signed: Christina Gutierrez MDReport Verified Date/Time: 06/27/2018 21:14:39 Reading Location: [address] Neuro Reading Room [id number] 20:36:00 Test Item Value Reference Range Comments MAGNESIUM (BEAKER) (test xgkd=978) 2.0 mg/dL 1.6-2.6 [id number] 20:36:00 Test Item Value Reference Range Comments PHOSPHORUS (BEAKER) (test zwfv=872) 2.9 mg/dL 2.3-4.7 TROPONIN [id number] 19:30:00 Test Item Value Reference Range Comments TROPONIN I (BEAKER) (test jiem=252) < ng/mL 0.00-0.03 Troponin I (TnI) levels [...] Range Comments B-TYPE NATRIURETIC PEPTIDE (BEAKER) (test vauu=015) 94 pg/mL 0-100 BASIC METABOLIC [id number] 19:28:00 Test Item Value Reference Range Comments SODIUM (BEAKER) (test 138 meq/L 136-145 tmqm=024) POTASSIUM (BEAKER) (test 4.0 meq/L 3.5-5.1 fiud=338) CHLORIDE (BEAKER) (test 103 meq/L 98-107 kvrg=146) CO2 (BEAKER) (test 29 meq/L 22-29 uttd=941) BLOOD UREA NITROGEN 15 mg/dL 7-21 (BEAKER) (test ztjb=931) CREATININE (BEAKER) (test 1.15 mg/dL 0.57-1.25 xlqw=667) GLUCOSE RANDOM (BEAKER) 117 mg/dL 70-105 (test uybh=638) CALCIUM (BEAKER) (test 9.0 mg/dL 8.4-10.2 uvzv=957) EGFR (BEAKER) (test mL/min/1.73 sq m INSUFFICIENT CLINICAL DATA cipo=7262) TO CALCULATE ESTIMATED GFR. [id number] 19:24:00 Test Item Value Reference Range Comments LIPASE (BEAKER) (test vhkj=020) 229 U/L 8-78 HEPATIC FUNCTION [id number] 19:24:00 Test Item Value Reference Range Comments TOTAL PROTEIN (BEAKER) (test unwl=061) 6.0 gm/dL 6.0-8.3 ALBUMIN (BEAKER) (test kpge=3697) 3.7 g/dL 3.5-5.0 BILIRUBIN TOTAL (BEAKER) (test zqhe=939) 0.5 mg/dL 0.2-1.2 BILIRUBIN DIRECT (BEAKER) (test kwsv=412) 0.3 mg/dL 0.1-0.5 ALKALINE PHOSPHATASE (BEAKER) (test aucd=216) 78 U/L 40-150 AST (SGOT) (BEAKER) (test lvqq=907) 32 U/L 5-34 ALT (SGPT) (BEAKER) (test aitl=970) 6 U/L 6-55 CBC W/PLT COUNT & AUTO [id number] 19:05:00 Test Item Value Reference Range Comments WHITE BLOOD CELL COUNT (BEAKER) (test fmkx=984) 4.6 K/ L 3.5-10.5 RED BLOOD CELL COUNT (BEAKER) (test viob=475) 3.38 M/ L 4.63-6.08 HEMOGLOBIN (BEAKER) (test xzbj=749) 10.8 GM/DL 13.7-17.5 HEMATOCRIT (BEAKER) (test blwa=594) 33.4 % 40.1-51.0 MEAN CORPUSCULAR VOLUME (BEAKER) (test pbup=237) 98.8 fL 79.0-92.2 MEAN CORPUSCULAR HEMOGLOBIN (BEAKER) (test 32.0 pg 25.7-32.2 qphq=209) MEAN CORPUSCULAR HEMOGLOBIN CONC (BEAKER) (test 32.3 GM/DL 32.3-36.5 ajkp=772) RED CELL DISTRIBUTION WIDTH (BEAKER) (test 12.8 % 11.6-14.4 fyjc=915) PLATELET COUNT (BEAKER) (test wpup=477) 160 K/CU MM 150-450 MEAN PLATELET VOLUME (BEAKER) (test cpup=398) 9.2 fL 9.4-12.4 NUCLEATED RED BLOOD CELLS (BEAKER) (test 0 /100 WBC 0-0 qzob=215) NEUTROPHILS RELATIVE PERCENT (BEAKER) (test 52 % scvs=770) LYMPHOCYTES RELATIVE PERCENT (BEAKER) (test 35 % dowa=442) MONOCYTES RELATIVE PERCENT (BEAKER) (test 11 % ific=886) EOSINOPHILS RELATIVE PERCENT (BEAKER) (test 3 % kmrt=712) BASOPHILS RELATIVE PERCENT (BEAKER) (test 0 % qios=953) NEUTROPHILS ABSOLUTE COUNT (BEAKER) (test 2.34 K/ L 1.78-5.38 aetq=906) LYMPHOCYTES ABSOLUTE COUNT (BEAKER) (test 1.57 K/ L 1.32-3.57 xrad=629) MONOCYTES ABSOLUTE COUNT (BEAKER) (test 0.48 K/ L 0.30-0.82 rugz=480) EOSINOPHILS ABSOLUTE COUNT (BEAKER) (test 0.14 K/ L 0.04-0.54 tbdm=525) BASOPHILS ABSOLUTE COUNT (BEAKER) (test 0.02 K/ L 0.01-0.08 vtxc=080) IMMATURE GRANULOCYTES-RELATIVE PERCENT (BEAKER) 0 % 0-1 (test qxlh=7902)
--- NOTE | 2018-11-26 11:12 | RAD REPORT ---
EXAM DESCRIPTION: RAD - Shoulder Right 2 View - 11/26/2018 11:04 am CLINICAL HISTORY: PAIN Fall, trauma, pain COMPARISON: No comparisons FINDINGS: AC joint and glenohumeral joint arthritic changes are present. Mild subacromial outlet amber rowing is seen. No acute fracture or dislocation evident.
--- NOTE | 2018-11-26 11:12 | RAD REPORT ---
EXAM DESCRIPTION: RAD - Knee Right 3 View - 11/26/2018 11:04 am CLINICAL HISTORY: PAIN COMPARISON: No comparisons FINDINGS: Moderate medial joint compartment space narrowing is present compatible with osteoarthriti s. No acute fracture or dislocation seen. Small suprapatellar joint effusion. Heavy vascular calcific ations noted.
--- NOTE | 2018-11-26 11:15 | RAD REPORT ---
EXAM DESCRIPTION: RAD - C Spine Ap/Lat - 11/26/2018 11:04 am CLINICAL HISTORY: PAIN COMPARISON: No comparisons FINDINGS: Advanced osteopenia.No fracture is identified, although assessment is limited due to degre e of osteopenia.Disc thinning with small posterior osteophytes seen C2-3 and C3-4. No prevertebral soft tissue thickening or other suspicious soft tissue finding. The odontoid is normal and lateral masses are symmetric. Carotid atherosclerosis. IMPRESSION: Prominent osteopenia without acute fracture seen.
--- NOTE | 2018-11-26 11:18 | ER ---
Nurse's Notes [facility] Name: Sumanth Louis Age: 78 yrs Sex: Male : 1940 Arrival Date: 11/26/2018 Time: 09:52 Bed 6 Private MD: Diagnosis: Contusion of right knee Presentation: 11/26 09:53 Presenting complaint: EMS states: family found patient in bathroom, holding onto sink, ss on knees. Patient c/o pain to R knee and R shoulder. Transition of care: patient was not received from another setting of care. Onset of symptoms was November 26, 2018. Risk Assessment: Do you want to hurt yourself or someone else? Patient reports no desire to harm self or others. Initial Sepsis Screen: Does the patient meet any 2 criteria? No. Patient's initial sepsis screen is negative. Does the patient have a suspected source of infection? No. Patient's initial sepsis screen is negative. Care prior to arrival: None. 09:53 Method Of Arrival: EMS: [facility] 09:53 Acuity: IRINA 4 ss Historical: - Allergies: 10:00 No Known Allergies; ss - PMHx: 10:00 Anxiety; Parkinsons; Rhinitis; PAD; LOCALIZED EDEMA; Hypertension; Hernia; chronic pain ss syndrome; Bilateral degeneration of macula; Anemia; Dementia; CHF; Bilateral deafness; osteoarthritis; right inguinal hernia; Vitamin D3 deficiency; - Immunization history:: Adult Immunizations up to date. - Social history:: Smoking status: unknown. - Ebola Screening: : Patient denies exposure to infectious person Patient denies travel to an Ebola-affected area in the 21 days before illness onset. Screenin:36 Abuse screen: Denies threats or abuse. Denies injuries from another. Nutritional ss screening: No deficits noted. Tuberculosis screening: Never had TB. Fall Risk Fall in past 12 months (25 points). Secondary diagnosis (15 points) impaired mobility, No IV (0 pts). Ambulatory Aid- None/Bed Rest/Nurse Assist (0 pts). Gait- Normal/Bed Rest/Wheelchair (0 pts) Mental Status- Oriented to own ability (0 pts). Assessment: 11:37 Reassessment: Patient appears in no apparent distress at this time. Ice pack applied to ss R knee. Vital Signs: 10:00 BP 145 / 65; Pulse 57; Resp 17; Pulse Ox 100% on R/A; ss ED Course: 09:52 Patient arrived in ED. ss 09:52 Rolly Chowdary PA is PHCP. jr8 09:52 Arvin Armendariz MD is Attending Physician. jr8 09:58 Triage completed. ss 10:00 Arm band placed on right wrist. ss 10:57 XRAY Shoulder RIGHT 2 view In Process Unspecified. EDMS 10:58 XRAY Knee RIGHT 3 view In Process Unspecified. EDMS 10:58 XRAY C Spine Ap/lat In Process Unspecified. EDMS 11:35 No provider procedures requiring assistance completed. Patient did not have IV access ss during this emergency room visit. 11:36 Patient has correct armband on for positive identification. Bed in low position. Call ss light in reach. Side rails up X 1. Administered Medications: No medications were administered Outcome: 11:12 Discharge ordered by . jr8 11:35 Discharged to home via wheelchair, with family. ss 11:35 Condition: good 11:35 Discharge instructions given to patient, family, Instructed on discharge instructions, follow up and referral plans. medication usage, Demonstrated understanding of instructions, follow-up care, medications. 11:38 Patient left the ED. ss Signatures: Dispatcher [employer] EDDC Maia Garcia RN RN Rolly Chowdary PA PA jr8
--- NOTE | 2018-11-26 11:19 | EDPHYS ---
Physician Documentation [facility] Name: Sumanth Louis Age: 78 yrs Sex: Male : 1940 Arrival Date: 11/26/2018 Time: 09:52 Bed 6 Private MD: ED Physician Arvin Armendariz HPI: 11/26 10:13 This 78 yrs old Male presents to ER via EMS with complaints of Fall Injury. jr8 10:13 Details of fall: The patient fell from an upright position, while standing. Onset: The jr8 symptoms/episode began/occurred acutely, today. Associated injuries: The patient sustained right arm and right leg. Severity of symptoms: At their worst the symptoms were mild, in the emergency department the symptoms are unchanged. It is unknown whether or not the patient has had similar symptoms in the past. The patient has not recently seen a physician. Family found patient kneeling on the floor. Stated that he was at [facility] for renal stone yesterday. Patient minimally verbal secondary to Parkinson's but complains of shoulder and knee pain currently . Historical: - Allergies: 10:00 No Known Allergies; ss - PMHx: 10:00 Anxiety; Parkinsons; Rhinitis; PAD; LOCALIZED EDEMA; Hypertension; Hernia; chronic pain ss syndrome; Bilateral degeneration of macula; Anemia; Dementia; CHF; Bilateral deafness; osteoarthritis; right inguinal hernia; Vitamin D3 deficiency; - Immunization history:: Adult Immunizations up to date. - Social history:: Smoking status: unknown. - Ebola Screening: : Patient denies exposure to infectious person Patient denies travel to an Ebola-affected area in the 21 days before illness onset. ROS: 10:13 Constitutional: Negative for fever, chills, and weight loss. jr8 10:13 MS/extremity: Positive for pain, tenderness, of the right arm and right leg. 10:13 All other systems are negative. Exam: 10:13 Head/Face: Normocephalic, atraumatic. Eyes: Pupils equal round and reactive to light, jr8 extra-ocular motions intact. Lids and lashes normal. Conjunctiva and sclera are non-icteric and not injected. Cornea within normal limits. Periorbital areas with no swelling, redness, or edema. ENT: Nares patent. No nasal discharge, no septal abnormalities noted. Tympanic membranes are normal and external auditory canals are clear. Oropharynx with no redness, swelling, or masses, exudates, or evidence of obstruction, uvula midline. Mucous membranes moist. Chest/axilla: Normal chest wall appearance and motion. Nontender with no deformity. No lesions are appreciated. Cardiovascular: Regular rate and rhythm with a normal S1 and S2. No gallops, murmurs, or rubs. Normal PMI, no JVD. No pulse deficits. Respiratory: Lungs have equal breath sounds bilaterally, clear to auscultation and percussion. No rales, rhonchi or wheezes noted. No increased work of breathing, no retractions or nasal flaring. Abdomen/GI: Soft, non-tender, with normal bowel sounds. No distension or tympany. No guarding or rebound. No evidence of tenderness throughout. Back: No spinal tenderness. No costovertebral tenderness. Full range of motion. Skin: Warm, dry with normal turgor. Normal color with no rashes, no lesions, and no evidence of cellulitis. Neuro: Awake and alert, GCS 15, oriented to person, place, time, and situation. Cranial nerves II-XII grossly intact. Motor strength 5/5 in all extremities. Sensory grossly intact. Cerebellar exam normal. Normal gait. 10:13 Neck: External neck: tenderness, that is mild, of the right mid cervical area and right trapezius, C-spine: appears grossly normal, no vertebral tenderness, no crepitus, Thyroid: appears normal, Trachea: is midline with no obvious abnormalities, ROM/movement: is normal, is supple, without pain, no range of motions limitations, no meningismus, no nuchal rigidity, negative Brudzinski's sign, negative Kernig's sign, Lymph nodes: no appreciated lymphadenopathy. 10:13 Musculoskeletal/extremity: Extremities: grossly normal except: noted in the right shoulder: pain, tenderness, noted in the right knee: pain, swelling, tenderness, mild ecchymosis to anterior patellar region , ROM: intact in all extremities, full active range of motion, full passive range of motion, Circulation is intact in all extremities. Sensation intact. Vital Signs: 10:00 BP 145 / 65; Pulse 57; Resp 17; Pulse Ox 100% on R/A; ss MDM: 09:52 Patient medically screened. jr8 11:12 Data reviewed: vital signs, nurses notes, radiologic studies, plain films. Data jr8 interpreted: Pulse oximetry: on room air is 100 %. Interpretation: normal. Counseling: I had a detailed discussion with the patient and/or guardian regarding: the historical points, exam findings, and any diagnostic results supporting the discharge/admit diagnosis, radiology results, the need for outpatient follow up, a family practitioner, to return to the emergency department if symptoms worsen or persist or if there are any questions or concerns that arise at home. 11/26 09:58 Order name: XRAY Shoulder RIGHT 2 view; Complete Time: 11:17 jr8 11/26 09:58 Order name: XRAY Knee RIGHT 3 view; Complete Time: : jr8 11/26 09:58 Order name: XRAY C Spine Ap/lat; Complete Time: jr8 Administered Medications: No medications were administered Disposition: 11:50 Co-signature as Attending Physician, Arvin Armendariz MD. rn Disposition: 11/26/18 11:12 Discharged to Home. Impression: Contusion of right knee. - Condition is Stable. - Discharge Instructions: Knee Pain. - Medication Reconciliation Form, Thank You Letter, Antibiotic Education, Prescription Opioid Use form. - Follow up: Private Physician; When: As needed; Reason: Recheck today's complaints, Continuance of care, Re-evaluation by your physician. - Problem is new. - Symptoms have improved. Signatures: Dispatcher [employer] EDMS Arvin Armendariz MD MD rn Smirch, Shelby, RN RN ss Rolly Chowdary PA PA jr8 Corrections: (The following items were deleted from the chart) 11:38 11:12 11/26/2018 11:12 Discharged to Home. Impression: Contusion of right knee. ss Condition is Stable. Forms are Medication Reconciliation Form, Thank You Letter, Antibiotic Education, Prescription Opioid Use. Follow up: Private Physician; When: As needed; Reason: Recheck today's complaints, Continuance of care, Re-evaluation by your physician. Problem is new. Symptoms have improved. jr8
[2018-11-26 11:44] VITALS: BP 145/65; O2SAT 100
== END 2018-11-26 11:38 | disposition home or self-care (01) ==
LOC: ER 09:50
DX: S80.01XA Contusion of right knee, initial encounter (principal); W18.30XA Fall on same level, unspecified, initial encounter; M79.601 Pain in right arm; F41.9 Anxiety disorder, unspecified; G20 Parkinson's disease; F02.80 Dementia in other diseases classified elsewhere, unspecified severity, without behavioral disturbance, psychotic disturbance, mood disturbance, and anxiety; D64.9 Anemia, unspecified; I11.0 Hypertensive heart disease with heart failure; I50.9 Heart failure, unspecified
CPT/HCPCS: 72040

== ENCOUNTER 2019-03-31 09:45 | Emergency (ER) | payer MEDICARE ==
--- OUTSIDE RECORDS SUMMARY | 2019-03-31 09:48 | XMS REPORT ---
:1940 [facility] Address [address] [place] [address] Care Team Providers Name Role Phone GHULAM [...] code=TROPI) < 0.012 NG/ML 0.012-0.033 Q 6HRS. [id number] 03:54:00 Test Item Value Reference Range Comments TROPONIN-I (test code=TROPI) < 0.012 NG/ML 0.012-0.033 [id number] 21:09:00 Test Item Value Reference Range Comments TROPONIN-I (test code=TROPI) < 0.012 NG/ML 0.012-0.033 COMPREHENSIVE METABOLIC [id number] 17:26:00 Test Item Value Reference Range Comments [...] ALKALINE PHOSPHATASE (test 86 UNITS/L 38-126 code=ALKP) [id number] 17:26:00 Test Item Value Reference Range Comments PHOSPHOROUS (test code=PHOS) 3.4 MG/DL 2.5-4.5 [id number] 17:26:00 Test Item Value Reference Range Comments MAGNESIUM (test code=MAG) 2.3 MG/DL 1.6-2.3 TROPONIN I [id number] 17:09:00 Test Item Value Reference Range Comments TROPONIN I RAPID (test code=TROPIRAP) 0.01 NG/ML 0.00-0.05 CBC W/AUTO [id number] 17:09:00 Test Item Value Reference Range Comments [...] code=NRBC#) 0.00 K/mm3 0.0-0.1 - XR CHEST [id number] 16:56:00 Patient Name: CARINA SAMANIEGO Unit No: [id number] EXAMS: CPT CODE: [id number] XR CHEST 1V 70137 EXAMINATION: - XR CHEST 1V. LOCATION: B2. [...] Technologist: Carolina Sherman, RT(R) Transcrpt Date/Tm/Trnsp: 07/28/2018 (492) CassPR7 Orig Print D/T: S: 07/28/2018 (0491) [facility] NAME: CARINA SAMANIEGO[address] PHYS: [place] [address] : 1940 AGE: 78 SEX: M LOC: Andrea.ERS PHONE #: [phone] EXAM DATE: 2018 STATUS: PRE ER FAX #: [phone] RADIOLOGY NO: PAGE 1 Signed ReportBLOOD [id number] 11:02:00 Test Item Value Reference Range Comments CULTURE (BEAKER) (test smvc=4284) No growth in 5 days BLOOD [id number] 11:02:00 Test Item Value Reference Range Comments CULTURE (BEAKER) (test vvjd=1065) No growth in 5 days COMPREHENSIVE METABOLIC [id number] 13:41:00 Test Item Value Reference Range Comments TOTAL PROTEIN (BEAKER) 6.3 gm/dL 6.0-8.3 (test cxkc=556) ALBUMIN (BEAKER) (test 3.7 g/dL 3.5-5.0 taql=5922) ALKALINE PHOSPHATASE 86 U/L 40-150 (BEAKER) (test sksd=852) BILIRUBIN TOTAL (BEAKER) 0.4 mg/dL 0.2-1.2 (test vxkz=965) SODIUM (BEAKER) (test 139 meq/L 136-145 nkwc=200) POTASSIUM (BEAKER) (test 4.1 meq/L 3.5-5.1 cfol=047) CHLORIDE (BEAKER) (test 104 meq/L 98-107 onht=633) CO2 (BEAKER) (test 27 meq/L 22-29 lhwe=814) BLOOD UREA NITROGEN 9 mg/dL 7-21 (BEAKER) (test iuck=710) CREATININE (BEAKER) (test 1.06 mg/dL 0.57-1.25 ocup=559) GLUCOSE RANDOM (BEAKER) 104 mg/dL 70-105 (test kxvs=452) CALCIUM (BEAKER) (test 9.1 mg/dL 8.4-10.2 wsli=704) AST (SGOT) (BEAKER) (test 19 U/L 5-34 pcsl=549) ALT (SGPT) (BEAKER) (test < U/L 6-55 jdhw=498) EGFR (BEAKER) (test 67 mL/min/1.73 sq m ESTIMATED GFR IS NOT fhto=1601) ACCURATE CREATININE CLEARANCE IN PREDICTING GLOMERULAR FILTRATION RATE. ESTIMATED GFR IS NOT APPLICABLE FOR DIALYSIS PATIENTS. [id number] 13:24:00 Test Item Value Reference Range Comments MAGNESIUM (BEAKER) (test ccvm=578) 1.9 mg/dL 1.6-2.6 [id number] 13:24:00 Test Item Value Reference Range Comments LIPASE (BEAKER) (test mdfw=441) 521 U/L 8-78 U/S, ABDOMINAL, [id number] 11:30:00Abdomen limited area? Add comment if clarification [...] Benjamin Verified Date/Time: 07/01/2018 11:30:04 Reading Location: [facility] [id number] Ultrasound Reading Room [id number] 06:07: 00 Test Item Value Reference Range Comments MAGNESIUM (BEAKER) (test olmk=125) 2.1 mg/dL 1.6-2.6 BASIC METABOLIC [id number] 06:07:00 Test Item Value Reference Range Comments SODIUM (BEAKER) (test 138 meq/L 136-145 ligs=987) POTASSIUM (BEAKER) (test 4.2 meq/L 3.5-5.1 dwil=850) CHLORIDE (BEAKER) (test 107 meq/L 98-107 qfgx=646) CO2 (BEAKER) (test 25 meq/L 22-29 ohnz=367) BLOOD UREA NITROGEN 9 mg/dL 7-21 (BEAKER) (test usiq=581) CREATININE (BEAKER) (test 0.95 mg/dL 0.57-1.25 gaim=281) GLUCOSE RANDOM (BEAKER) 94 mg/dL 70-105 (test hepg=842) CALCIUM (BEAKER) (test 8.6 mg/dL 8.4-10.2 cgqm=136) EGFR (BEAKER) (test 76 mL/min/1.73 sq m ESTIMATED GFR IS NOT rvop=0250) ACCURATE CREATININE CLEARANCE IN PREDICTING GLOMERULAR FILTRATION RATE. ESTIMATED GFR IS NOT APPLICABLE FOR DIALYSIS PATIENTS. CBC W/PLT COUNT & AUTO [id number] 06:04:00 Test Item Value Reference Range Comments WHITE BLOOD CELL COUNT (BEAKER) (test wnem=618) 5.3 K/ L 3.5-10.5 RED BLOOD CELL COUNT (BEAKER) (test qzwj=218) 3.16 M/ L 4.63-6.08 HEMOGLOBIN (BEAKER) (test rhfa=915) 10.0 GM/DL 13.7-17.5 HEMATOCRIT (BEAKER) (test ijyq=567) 31.4 % 40.1-51.0 MEAN CORPUSCULAR VOLUME (BEAKER) (test irmj=342) 99.4 fL 79.0-92.2 MEAN CORPUSCULAR HEMOGLOBIN (BEAKER) (test 31.6 pg 25.7-32.2 dbva=215) MEAN CORPUSCULAR HEMOGLOBIN CONC (BEAKER) (test 31.8 GM/DL 32.3-36.5 euvp=003) RED CELL DISTRIBUTION WIDTH (BEAKER) (test 12.6 % 11.6-14.4 mxbw=385) PLATELET COUNT (BEAKER) (test zows=124) 148 K/CU MM 150-450 MEAN PLATELET VOLUME (BEAKER) (test bhfe=699) 9.8 fL 9.4-12.4 NUCLEATED RED BLOOD CELLS (BEAKER) (test 0 /100 WBC 0-0 lqhj=288) NEUTROPHILS RELATIVE PERCENT (BEAKER) (test 50 % ymhi=172) LYMPHOCYTES RELATIVE PERCENT (BEAKER) (test 34 % nfle=264) MONOCYTES RELATIVE PERCENT (BEAKER) (test 12 % gare=889) EOSINOPHILS RELATIVE PERCENT (BEAKER) (test 4 % qixn=881) BASOPHILS RELATIVE PERCENT (BEAKER) (test 1 % scyk=784) NEUTROPHILS ABSOLUTE COUNT (BEAKER) (test 2.60 K/ L 1.78-5.38 qizk=276) LYMPHOCYTES ABSOLUTE COUNT (BEAKER) (test 1.76 K/ L 1.32-3.57 scsp=029) MONOCYTES ABSOLUTE COUNT (BEAKER) (test 0.65 K/ L 0.30-0.82 nkfp=478) EOSINOPHILS ABSOLUTE COUNT (BEAKER) (test 0.20 K/ L 0.04-0.54 umzn=439) BASOPHILS ABSOLUTE COUNT (BEAKER) (test 0.03 K/ L 0.01-0.08 rfxs=370) IMMATURE GRANULOCYTES-RELATIVE PERCENT (BEAKER) 0 % 0-1 (test hwmv=8659) [id number] 10:30:00 Test Item Value Reference Range Comments MAGNESIUM (BEAKER) (test fxlf=107) 1.9 mg/dL 1.6-2.6 CBC W/PLT COUNT & AUTO [id number] 07:07:00 Test Item Value Reference Range Comments WHITE BLOOD CELL COUNT (BEAKER) (test zrwf=525) 4.4 K/ L 3.5-10.5 RED BLOOD CELL COUNT (BEAKER) (test ayti=380) 3.32 M/ L 4.63-6.08 HEMOGLOBIN (BEAKER) (test tswr=051) 10.6 GM/DL 13.7-17.5 HEMATOCRIT (BEAKER) (test iujr=130) 32.9 % 40.1-51.0 MEAN CORPUSCULAR VOLUME (BEAKER) (test pute=240) 99.1 fL 79.0-92.2 MEAN CORPUSCULAR HEMOGLOBIN (BEAKER) (test 31.9 pg 25.7-32.2 hqns=758) MEAN CORPUSCULAR HEMOGLOBIN CONC (BEAKER) (test 32.2 GM/DL 32.3-36.5 jjuu=610) RED CELL DISTRIBUTION WIDTH (BEAKER) (test 12.7 % 11.6-14.4 znea=679) PLATELET COUNT (BEAKER) (test qdhc=381) 145 K/CU MM 150-450 MEAN PLATELET VOLUME (BEAKER) (test zetb=938) 10.1 fL 9.4-12.4 NUCLEATED RED BLOOD CELLS (BEAKER) (test 0 /100 WBC 0-0 ysoe=156) NEUTROPHILS RELATIVE PERCENT (BEAKER) (test 40 % dhas=797) LYMPHOCYTES RELATIVE PERCENT (BEAKER) (test 44 % heal=533) MONOCYTES RELATIVE PERCENT (BEAKER) (test 12 % gktz=414) EOSINOPHILS RELATIVE PERCENT (BEAKER) (test 4 % foth=099) BASOPHILS RELATIVE PERCENT (BEAKER) (test 1 % uhaw=688) NEUTROPHILS ABSOLUTE COUNT (BEAKER) (test 1.74 K/ L 1.78-5.38 lhkc=655) LYMPHOCYTES ABSOLUTE COUNT (BEAKER) (test 1.90 K/ L 1.32-3.57 ajhe=301) MONOCYTES ABSOLUTE COUNT (BEAKER) (test 0.54 K/ L 0.30-0.82 ozqq=687) EOSINOPHILS ABSOLUTE COUNT (BEAKER) (test 0.16 K/ L 0.04-0.54 rlbt=351) BASOPHILS ABSOLUTE COUNT (BEAKER) (test 0.02 K/ L 0.01-0.08 ckcj=485) IMMATURE GRANULOCYTES-RELATIVE PERCENT (BEAKER) 0 % 0-1 (test xqru=0070) BASIC METABOLIC [id number] 06:31:00 Test Item Value Reference Range Comments SODIUM (BEAKER) (test 138 meq/L 136-145 ltiy=867) POTASSIUM (BEAKER) (test 3.7 meq/L 3.5-5.1 jmsg=080) CHLORIDE (BEAKER) (test 107 meq/L 98-107 bpzy=469) CO2 (BEAKER) (test 25 meq/L 22-29 nrpg=709) BLOOD UREA NITROGEN 9 mg/dL 7-21 (BEAKER) (test pudm=527) CREATININE (BEAKER) (test 1.01 mg/dL 0.57-1.25 bqnm=554) GLUCOSE RANDOM (BEAKER) 81 mg/dL 70-105 (test ntqc=598) CALCIUM (BEAKER) (test 8.7 mg/dL 8.4-10.2 vfxn=765) EGFR (BEAKER) (test 71 mL/min/1.73 sq m ESTIMATED GFR IS NOT xgnm=4946) ACCURATE CREATININE CLEARANCE IN PREDICTING GLOMERULAR FILTRATION RATE. ESTIMATED GFR IS NOT APPLICABLE FOR DIALYSIS PATIENTS. BASIC METABOLIC [id number] 06:27:00 Test Item Value Reference Range Comments SODIUM (BEAKER) (test 139 meq/L 136-145 sdge=416) POTASSIUM (BEAKER) (test 4.1 meq/L 3.5-5.1 zpap=393) CHLORIDE (BEAKER) (test 106 meq/L 98-107 igba=020) CO2 (BEAKER) (test 26 meq/L 22-29 aewb=764) BLOOD UREA NITROGEN 10 mg/dL 7-21 (BEAKER) (test esuq=042) CREATININE (BEAKER) (test 0.98 mg/dL 0.57-1.25 cdpb=397) GLUCOSE RANDOM (BEAKER) 78 mg/dL 70-105 (test etll=038) CALCIUM (BEAKER) (test 9.5 mg/dL 8.4-10.2 hqzm=142) EGFR (BEAKER) (test mL/min/1.73 sq m INSUFFICIENT CLINICAL DATA pwgu=3255) TO CALCULATE ESTIMATED GFR. CBC W/PLT COUNT & AUTO [id number] 05:45:00 Test Item Value Reference Range Comments WHITE BLOOD CELL COUNT (BEAKER) (test tmbf=464) 4.5 K/ L 3.5-10.5 RED BLOOD CELL COUNT (BEAKER) (test gqxm=741) 3.71 M/ L 4.63-6.08 HEMOGLOBIN (BEAKER) (test unlg=691) 11.8 GM/DL 13.7-17.5 HEMATOCRIT (BEAKER) (test mtkx=448) 36.0 % 40.1-51.0 MEAN CORPUSCULAR VOLUME (BEAKER) (test jedu=903) 97.0 fL 79.0-92.2 MEAN CORPUSCULAR HEMOGLOBIN (BEAKER) (test 31.8 pg 25.7-32.2 jqeh=306) MEAN CORPUSCULAR HEMOGLOBIN CONC (BEAKER) (test 32.8 GM/DL 32.3-36.5 mmgv=973) RED CELL DISTRIBUTION WIDTH (BEAKER) (test 12.6 % 11.6-14.4 ilxb=643) PLATELET COUNT (BEAKER) (test zscp=684) 170 K/CU MM 150-450 MEAN PLATELET VOLUME (BEAKER) (test zawe=445) 9.5 fL 9.4-12.4 NUCLEATED RED BLOOD CELLS (BEAKER) (test 0 /100 WBC 0-0 hblm=438) NEUTROPHILS RELATIVE PERCENT (BEAKER) (test 50 % ibzu=651) LYMPHOCYTES RELATIVE PERCENT (BEAKER) (test 37 % damh=699) MONOCYTES RELATIVE PERCENT (BEAKER) (test 10 % bcrt=495) EOSINOPHILS RELATIVE PERCENT (BEAKER) (test 3 % kjao=200) BASOPHILS RELATIVE PERCENT (BEAKER) (test 0 % cqsw=524) NEUTROPHILS ABSOLUTE COUNT (BEAKER) (test 2.23 K/ L 1.78-5.38 fsbn=369) LYMPHOCYTES ABSOLUTE COUNT (BEAKER) (test 1.67 K/ L 1.32-3.57 badm=032) MONOCYTES ABSOLUTE COUNT (BEAKER) (test 0.44 K/ L 0.30-0.82 hcqq=098) EOSINOPHILS ABSOLUTE COUNT (BEAKER) (test 0.15 K/ L 0.04-0.54 bsrm=258) BASOPHILS ABSOLUTE COUNT (BEAKER) (test 0.02 K/ L 0.01-0.08 xbtg=942) IMMATURE GRANULOCYTES-RELATIVE PERCENT (BEAKER) 0 % 0-1 (test xfnu=4297) CT, BRAIN, WITHOUT [id number] 23:42:00FINAL REPORT CT, BRAIN, WITHOUT CONTRAST CLINICAL [...] Verified Date/Time: 06/27/2018 23:42:40 Reading Location: [address] Neuro Reading Room URINALYSIS W/ REFLEX URINE [id number] 21:57:00 Test Item Value Reference Range Comments COLOR (BEAKER) (test wvwb=975) Colorless CLARITY (BEAKER) (test temh=627) Clear SPECIFIC GRAVITY UA (BEAKER) (test hhph=033) 1.001 1.001-1.035 PH UA (BEAKER) (test dbry=268) 7.5 5.0-8.0 PROTEIN UA (BEAKER) (test uacd=935) Negative Negative GLUCOSE UA (BEAKER) (test lsws=797) Negative Negative KETONES UA (BEAKER) (test vxfc=954) Negative Negative BILIRUBIN UA (BEAKER) (test kfip=691) Negative Negative BLOOD UA (BEAKER) (test qwhx=441) Trace Negative NITRITE UA (BEAKER) (test qxqi=719) Negative Negative LEUKOCYTE ESTERASE UA (BEAKER) (test prtq=813) Negative Negative UROBILINOGEN UA (BEAKER) (test feop=973) 0.2 mg/dL 0.2-1.0 RBC UA (BEAKER) (test qlhc=809) 1 /HPF WBC UA (BEAKER) (test onyu=036) < /HPF SOURCE(BEAKER) (test putw=4413) RAD, CHEST, 1 VIEW, NON [id number] 21:14:00Reason for exam:->LOSS OF CONSCIOUSNESSShould this be performed at the bedside?->YesFINAL REPORT INDICATION: LOSS OF CONSCIOUSNESS COMPARISON: None TECHNIQUE: Single frontal view of the chest. FINDINGS: Lungs and pleura: Clear lungs. No effusion.Heart and mediastinum: Normal heart size. Unremarkable mediastinal contours.Osseous structures: No acute abnormality.Other: None. IMPRESSION: No acute intrathoracic abnormality. Signed: Christina Gutierrez MDReport Verified Date/Time: 06/27/2018 21:14:39 Reading Location: [address] Neuro Reading Room [id number] 20:36:00 Test Item Value Reference Range Comments MAGNESIUM (BEAKER) (test egfx=206) 2.0 mg/dL 1.6-2.6 [id number] 20:36:00 Test Item Value Reference Range Comments PHOSPHORUS (BEAKER) (test spbx=452) 2.9 mg/dL 2.3-4.7 TROPONIN [id number] 19:30:00 Test Item Value Reference Range Comments TROPONIN I (BEAKER) (test czoc=628) < ng/mL 0.00-0.03 Troponin I (TnI) levels [...] Range Comments B-TYPE NATRIURETIC PEPTIDE (BEAKER) (test ngcx=657) 94 pg/mL 0-100 BASIC METABOLIC [id number] 19:28:00 Test Item Value Reference Range Comments SODIUM (BEAKER) (test 138 meq/L 136-145 jqrh=245) POTASSIUM (BEAKER) (test 4.0 meq/L 3.5-5.1 peiq=425) CHLORIDE (BEAKER) (test 103 meq/L 98-107 vucr=851) CO2 (BEAKER) (test 29 meq/L 22-29 krit=589) BLOOD UREA NITROGEN 15 mg/dL 7-21 (BEAKER) (test jzii=406) CREATININE (BEAKER) (test 1.15 mg/dL 0.57-1.25 aczd=841) GLUCOSE RANDOM (BEAKER) 117 mg/dL 70-105 (test xkbs=122) CALCIUM (BEAKER) (test 9.0 mg/dL 8.4-10.2 bmbs=063) EGFR (BEAKER) (test mL/min/1.73 sq m INSUFFICIENT CLINICAL DATA nfhz=6355) TO CALCULATE ESTIMATED GFR. [id number] 19:24:00 Test Item Value Reference Range Comments LIPASE (BEAKER) (test mbaq=878) 229 U/L 8-78 HEPATIC FUNCTION [id number] 19:24:00 Test Item Value Reference Range Comments TOTAL PROTEIN (BEAKER) (test fxyt=630) 6.0 gm/dL 6.0-8.3 ALBUMIN (BEAKER) (test tdjj=4101) 3.7 g/dL 3.5-5.0 BILIRUBIN TOTAL (BEAKER) (test rkob=622) 0.5 mg/dL 0.2-1.2 BILIRUBIN DIRECT (BEAKER) (test kyjb=852) 0.3 mg/dL 0.1-0.5 ALKALINE PHOSPHATASE (BEAKER) (test nucb=350) 78 U/L 40-150 AST (SGOT) (BEAKER) (test mvgi=948) 32 U/L 5-34 ALT (SGPT) (BEAKER) (test azbo=633) 6 U/L 6-55 CBC W/PLT COUNT & AUTO [id number] 19:05:00 Test Item Value Reference Range Comments WHITE BLOOD CELL COUNT (BEAKER) (test drsn=701) 4.6 K/ L 3.5-10.5 RED BLOOD CELL COUNT (BEAKER) (test xpqg=576) 3.38 M/ L 4.63-6.08 HEMOGLOBIN (BEAKER) (test kgxc=074) 10.8 GM/DL 13.7-17.5 HEMATOCRIT (BEAKER) (test msvv=110) 33.4 % 40.1-51.0 MEAN CORPUSCULAR VOLUME (BEAKER) (test mzie=993) 98.8 fL 79.0-92.2 MEAN CORPUSCULAR HEMOGLOBIN (BEAKER) (test 32.0 pg 25.7-32.2 bpyd=018) MEAN CORPUSCULAR HEMOGLOBIN CONC (BEAKER) (test 32.3 GM/DL 32.3-36.5 oihm=073) RED CELL DISTRIBUTION WIDTH (BEAKER) (test 12.8 % 11.6-14.4 jgro=480) PLATELET COUNT (BEAKER) (test mtxj=695) 160 K/CU MM 150-450 MEAN PLATELET VOLUME (BEAKER) (test lugg=397) 9.2 fL 9.4-12.4 NUCLEATED RED BLOOD CELLS (BEAKER) (test 0 /100 WBC 0-0 rmgb=527) NEUTROPHILS RELATIVE PERCENT (BEAKER) (test 52 % ukje=802) LYMPHOCYTES RELATIVE PERCENT (BEAKER) (test 35 % uijy=923) MONOCYTES RELATIVE PERCENT (BEAKER) (test 11 % bxki=168) EOSINOPHILS RELATIVE PERCENT (BEAKER) (test 3 % kvfm=096) BASOPHILS RELATIVE PERCENT (BEAKER) (test 0 % qtuq=117) NEUTROPHILS ABSOLUTE COUNT (BEAKER) (test 2.34 K/ L 1.78-5.38 grvq=555) LYMPHOCYTES ABSOLUTE COUNT (BEAKER) (test 1.57 K/ L 1.32-3.57 veud=193) MONOCYTES ABSOLUTE COUNT (BEAKER) (test 0.48 K/ L 0.30-0.82 flaq=861) EOSINOPHILS ABSOLUTE COUNT (BEAKER) (test 0.14 K/ L 0.04-0.54 efqg=927) BASOPHILS ABSOLUTE COUNT (BEAKER) (test 0.02 K/ L 0.01-0.08 ykxx=012) IMMATURE GRANULOCYTES-RELATIVE PERCENT (BEAKER) 0 % 0-1 (test fxsi=9551)
--- NOTE | 2019-03-31 10:44 | RAD REPORT ---
EXAM DESCRIPTION: CT - Head C Spine Mpr Wo Con - 03/31/2019 10:30 am CLINICAL HISTORY: Head and neck injury status post fall. Head and neck pain COMPARISON: June 2018 TECHNIQUE: Computed axial tomography of the head and cervical spine was obtained. Sagittal and coronal reconstruction was performed. All CT scans are performed using dose optimization technique as appropriate and may include automated exposure control or mA/KV adjustment according to patient size. FINDINGS: An intracranial bleed is not seen. The ventricles are normal in caliber. An extra-axial fl uid collection is not noted.Fluid within the visualized sinuses and mastoids is not seen A cervical fracture is not visualized. No dislocation is noted. Spondylosis involves the cervical spi ne mild posterior subluxation C2 on C3 is unchanged IMPRESSION: No acute intracranial abnormality is seen. A cervical fracture is not visualized. If the patient continues to have symptoms to suggest intracra nial /spinal cord pathology then MRI would be recommended
--- NOTE | 2019-03-31 10:49 | RAD REPORT ---
EXAM DESCRIPTION: Corey Single View03/31/2019 10:21 am CLINICAL HISTORY: Hypotension COMPARISON: August 2018 FINDINGS: The lungs appear clear of acute infiltrate. The heart is normal size IMPRESSION: No acute abnormalities displayed
[2019-03-31 10:54] LABS: Absolute Lymphocytes (CBC) 0.9 K/uL (0.7-4.9); Basophils % 0.5 % (0-1.3); Hematocrit 35.7 % (39.6-49.0); Lymphocytes % 20.8 % (15.3-44.8); MPV 8.5 fL (7.6-11.3); Protime INR 0.93; RBC Red Blood Cell Count 3.84 M/uL (4.33-5.43)
[2019-03-31 10:57] LABS: ALT/SGPT 11 U/L (12-78); AST/SGOT 21 U/L (15-37); Albumin 3.9 g/dL (3.4-5.0); Alkaline Phosphatase 101 U/L (45-117); BUN Blood Urea Nitrogen 27 mg/dL (7-18); Bicarbonate 28 mmol/L (21-32); Bilirubin Direct 0.1 mg/dL (0-0.2); Bilirubin Total 0.5 mg/dL (0.2-1.0); Glucose Level 93 mg/dL (74-106); Lipase 465 U/L (73-393); Magnesium 2.4 mg/dL (1.8-2.4); NT PRO-BNP 329 pg/mL (<450); Potassium 4.7 mmol/L (3.5-5.1); Protein, Total 7.3 g/dL (6.4-8.2); Sodium Level 141 mmol/L (136-145); Troponin (Emerg Dept Use Only) < 0.02 ng/mL (0.0-0.045)
--- NOTE | 2019-03-31 11:28 | EKG ---
Test Date: 2019-03-31 Test Time: 10:19:26 Manager Utilization Management: CARL MEASUREMENT RESULTS: Intervals: Rate: 54 MI: 122 QRSD: 98 QT: 470 QTc: 445 [place]: P: 37 MI: 122 QRS: 11 T: 52 INTERPRETIVE STATEMENTS: Sinus bradycardia Otherwise normal ECG Compared to ECG 09/24/2018 09:29:36 No significant changes Electronically Signed On 03-31-19 11:27:01 JIG GRINDER SET UP OPERATOR by Rex Dumont
--- NOTE | 2019-03-31 12:12 | EDPHYS ---
Physician Documentation [facility] – [place], [place] Name: Sumanth Louis Age: 79 yrs Sex: Male : 1940 Arrival Date: 03/31/2019 Time: 09:48 Bed 4 Private MD: ED Physician Arvin Armendariz HPI: 03/31 12:06 This 79 yrs old Male presents to ER via EMS with complaints of Blood Pressure rn Problem, General Weakness. 12:06 The patient has experienced syncope. Onset: The symptoms/episode began/occurred just rn prior to arrival. Duration: This was a single episode. Associated injury: The patient did not suffer any apparent associated injury. Current symptoms: Currently, the patient is not experiencing any symptoms. The patient has experienced similar episodes in the past. daughter reports has had BP problems in past being low, is on midodrine, taken off lasix, was standing today and passed out, denies injury/chest pain/sob/palpitations/abd pain/vomiting/diarrhea. Daughter states never drinks water or wants to eat, has been a persistent issue for him. No fever. Currently acting normal. . Historical: - Allergies: 09:54 No Known Allergies; sg - PMHx: 09:54 Anemia; Anxiety; Bilateral deafness; Bilateral degeneration of macula; CHF; chronic sg pain syndrome; Dementia; Hernia; Hypertension; LOCALIZED EDEMA; osteoarthritis; PAD; Parkinsons; Rhinitis; right inguinal hernia; Vitamin D3 deficiency; - Immunization history:: Adult Immunizations unknown, Last tetanus immunization: unknown. - Social history:: Smoking status: Patient/guardian denies using tobacco. - Ebola Screening: : Patient negative for fever greater than or equal to 101.5 degrees Fahrenheit, and additional compatible Ebola Virus Disease symptoms Patient denies exposure to infectious person Patient denies travel to an Ebola-affected area in the 21 days before illness onset No symptoms or risks identified at this time. - Family history:: not pertinent. - Hospitalizations: : No recent hospitalization is reported. ROS: 12:06 Constitutional: Negative for fever, chills, and weight loss, Eyes: Negative for injury, rn pain, redness, and discharge, ENT: Negative for injury, pain, and discharge, Neck: Negative for injury, pain, and swelling, Cardiovascular: Negative for chest pain, palpitations, and edema, Respiratory: Negative for shortness of breath, cough, wheezing, and pleuritic chest pain, Abdomen/GI: Negative for abdominal pain, nausea, vomiting, diarrhea, and constipation, Back: Negative for injury and pain, : Negative for injury, bleeding, discharge, and swelling, MS/Extremity: Negative for injury and deformity, Skin: Negative for injury, rash, and discoloration, Neuro: Negative for headache, numbness, tingling, and seizure. Exam: 12:06 Constitutional: Thin male, laying in bed, no acute distress Head/Face: Normocephalic, rn atraumatic. ENT: dry MM Neck: No midline cervical tenderness Chest/axilla: Normal chest wall appearance and motion. Nontender with no deformity. No lesions are appreciated. Cardiovascular: Regular rate and rhythm. No pulse deficits. Respiratory: Lungs have equal breath sounds bilaterally, clear to auscultation. No increased work of breathing, no retractions or nasal flaring. Abdomen/GI: soft, non-tender Skin: Warm, dry, and no evidence of cellulitis. MS/ Extremity: Pulses equal, no cyanosis. Neurovascular intact. Full, normal range of motion. Equal circumference. Neuro: Awake and alert, GCS 15, oriented to person, place, time, and situation. Cranial nerves II-XII grossly intact. Motor strength 4/5 in all extremities. Sensory grossly intact. Vital Signs: 09:51 BP 151 / 62; Pulse 66; Resp 17; Temp 97.7; Pulse Ox 100% on R/A; Weight 52.16 kg (R); sg Height 5 ft. 8 in. (172.72 cm); 11:11 BP 157 / 73; Pulse 61; Resp 14; Pulse Ox 100% ; sv 12:00 BP 168 / 98; Pulse 72; Resp 17; Pulse Ox 100% ; sv 13:00 BP 162 / 66; Pulse 64; Resp 14; Pulse Ox 99% ; sv 09:51 Body Mass Index 17.49 (52.16 kg, 172.72 cm) sg MDM: 09:53 Patient medically screened. rn 12:06 Differential Diagnosis: idiopathic syncope, vasovagal episode, dehydration, orthostatic rn hypotension. Data reviewed: vital signs, nurses notes, lab test result(s), EKG, radiologic studies, CT scan, plain films, and as a result, I will discharge patient. Counseling: I had a detailed discussion with the patient and/or guardian regarding: the historical points, exam findings, and any diagnostic results supporting the discharge/admit diagnosis, lab results, radiology results, the need for outpatient follow up, to return to the emergency department if symptoms worsen or persist or if there are any questions or concerns that arise at home. Response to treatment: the patient's symptoms have markedly improved after treatment, the patient's condition has returned to base line, the patient is now symptom free, patient is well hydrated. and as a result, I will discharge patient. Special discussion: I discussed with the patient/guardian in detail that at this point there is no indication for admission to the hospital. It is understood, however, that if the symptoms persist or worsen the patient needs to return immediately for re-evaluation. ED course: Pt at baseline, no acute findings other than dehydrated which was expected from story from daughter, seen more recurrent falls before, BP stable after 3 hour observation in ER.. 03/31 09:55 Order name: Basic Metabolic Panel; Complete Time: 11: rn 03/31 09:55 Order name: CBC with Diff; Complete Time: 11: rn 03/31 09:55 Order name: Hepatic Function; Complete Time: 11: rn 03/31 09:55 Order name: Lipase; Complete Time: 11: rn 03/31 09:55 Order name: Magnesium; Complete Time: 11: rn 03/31 09:55 Order name: Protime (+inr); Complete Time: 11:03 rn 03/31 09:55 Order name: CT Head C Spine; Complete Time: 11: rn 03/31 09:55 Order name: Ptt, Activated; Complete Time: 11: rn 03/31 09:55 Order name: Troponin (emerg Dept Use Only); Complete Time: 11:03 rn 03/31 09:55 Order name: Procalcitonin rn 03/31 09:55 Order name: N-Terminal Pro-brain Natriuretic Peptide; Complete Time: 11: rn 03/31 09:55 Order name: Urine Microscopic Only rn 03/31 09:55 Order name: XRAY Chest (1 view); Complete Time: 11:03 rn 03/31 12:26 Order name: Urine Dipstick--Ancillary (enter results) 03/31 09:55 Order name: EKG; Complete Time: 09:56 rn 03/31 09:55 Order name: Cardiac monitoring; Complete Time: :56 rn 03/31 09:55 Order name: IV Saline Lock; Complete Time: :56 rn 03/31 09:55 Order name: Labs collected and sent; Complete Time: :56 rn 03/31 09:55 Order name: NPO; Complete Time: :56 rn 03/31 09:55 Order name: O2 Per Protocol; Complete Time: :56 rn 03/31 09:55 Order name: O2 Sat Monitoring; Complete Time: :56 rn 03/31 09:55 Order name: Urine Dipstick-Ancillary (obtain specimen); Complete Time: 12:23 rn Administered Medications: 09:57 Drug: NS 0.9% 500 ml Route: IV; Rate: bolus; Site: right forearm; sg Disposition: 03/31/19 12:11 Discharged to Home. Impression: Syncope and collapse, Dehydration. - Condition is Stable. - Discharge Instructions: Dehydration, Adult, Syncope. - Medication Reconciliation Form, Thank You Letter, Antibiotic Education, Prescription Opioid Use form. - Follow up: Private Physician; When: As needed; Reason: Recheck today's complaints, Re-evaluation by your physician. - Problem is new. - Symptoms have improved. Signatures: Dispatcher [employer] EDSherrie Marcos RN RN Kd Muñoz RN RN Arvin Armendariz MD MD churn tender: (The following items were deleted from the chart) 13:30 12:11 03/31/2019 12:11 Discharged to Home. Impression: Syncope and collapse; sv Dehydration. Condition is Stable. Forms are Medication Reconciliation Form, Thank You Letter, Antibiotic Education, Prescription Opioid Use. Follow up: Private Physician; When: As needed; Reason: Recheck today's complaints, Re-evaluation by your physician. Problem is new. Symptoms have improved. rn
--- NOTE | 2019-03-31 12:12 | ER ---
Nurse's Notes [facility] Name: Sumanth Louis Age: 79 yrs Sex: Male : 1940 Arrival Date: 03/31/2019 Time: 09:48 Bed 4 Private MD: Diagnosis: Syncope and collapse;Dehydration Presentation: 03/31 09:49 Presenting complaint: EMS states: reports the patient was in the restroom by the sg sink when he became weak, reports she was able to to help him down to the ground but he scraped his left elbow and left forearm on something. EMS reports having positive orthostatic hypotension with results of 60's/40's. Transition of care: patient was not received from another setting of care. Onset of symptoms was March 31, 2019. Risk Assessment: Do you want to hurt yourself or someone else? Patient reports no desire to harm self or others. Initial Sepsis Screen: Does the patient meet any 2 criteria? No. Patient's initial sepsis screen is negative. Does the patient have a suspected source of infection? No. Patient's initial sepsis screen is negative. Care prior to arrival: Medication(s) given: Normal saline infusion, 500 mL, IV initiated. 20 GA, in the right forearm. 09:49 Method Of Arrival: EMS: [facility] sg 09:49 Acuity: [facility] 2 sg 09:54 Note pt reports to EMS that pt took Medications this morning. Midodrine 2.5 mg, sg Mematine 5 mg, Aspirin 81 mg, Carbidopa/levodopa 25mg-250 mg. Historical: - Allergies: 09:54 No Known Allergies; sg - PMHx: 09:54 Anemia; Anxiety; Bilateral deafness; Bilateral degeneration of macula; CHF; chronic sg pain syndrome; Dementia; Hernia; Hypertension; LOCALIZED EDEMA; osteoarthritis; PAD; Parkinsons; Rhinitis; right inguinal hernia; Vitamin D3 deficiency; - Immunization history:: Adult Immunizations unknown, Last tetanus immunization: unknown. - Social history:: Smoking status: Patient/guardian denies using tobacco. - Ebola Screening: : Patient negative for fever greater than or equal to 101.5 degrees Fahrenheit, and additional compatible Ebola Virus Disease symptoms Patient denies exposure to infectious person Patient denies travel to an Ebola-affected area in the 21 days before illness onset No symptoms or risks identified at this time. - Family history:: not pertinent. - Hospitalizations: : No recent hospitalization is reported. Assessment: 09:50 General: Appears in no apparent distress. slender, well groomed, well nourished, sg Behavior is calm, cooperative, appropriate for age. Pain: Denies pain. Neuro: Level of Consciousness is awake, alert, obeys commands, Oriented to person, place, situation, Speech is normal, Facial symmetry appears normal. Cardiovascular: Capillary refill is brisk in bilateral fingers Patient's skin is warm and dry. Chest pain is denied. Respiratory: Airway is patent Respiratory effort is even, unlabored, Respiratory pattern is regular, symmetrical. GI: Abdomen is flat, non-distended. : No signs and/or symptoms were reported regarding the genitourinary system. EENT: No signs and/or symptoms were reported regarding the EENT system. Derm: Skin is pink, warm \T\ dry. Musculoskeletal: Circulation, motion, and sensation intact. Range of motion: intact in all extremities. Vital Signs: 09:51 BP 151 / 62; Pulse 66; Resp 17; Temp 97.7; Pulse Ox 100% on R/A; Weight 52.16 kg (R); sg Height 5 ft. 8 in. (172.72 cm); 11:11 BP 157 / 73; Pulse 61; Resp 14; Pulse Ox 100% ; sv 12:00 BP 168 / 98; Pulse 72; Resp 17; Pulse Ox 100% ; sv 13:00 BP 162 / 66; Pulse 64; Resp 14; Pulse Ox 99% ; sv 09:51 Body Mass Index 17.49 (52.16 kg, 172.72 cm) ED Course: 09:48 Patient arrived in ED. sg 09:50 Patient has correct armband on for positive identification. Bed in low position. Call sv light in reach. Side rails up X2. monitoring tech on. Pulse ox on. NIBP on. 09:50 Maintain EMS IV. Dressing intact. Site clean \T\ dry. Gauge \T\ site: 20 g r forearm . IV sg is patent, is intact. 09:51 Triage completed. sg 09:51 Arm band placed on. sg 09:53 Arvin Armendariz MD is Attending Physician. rn 09:55 Kd Ortiz RN is Primary Nurse. sg 10:17 XRAY Chest (1 view) In Process Unspecified. EDMS 10:23 EKG done, by staging technician. reviewed by Arvin Armendariz MD. at1 10:30 CT Head C Spine In Process Unspecified. EDMS Administered Medications: 09:57 Drug: NS 0.9% 500 ml Route: IV; Rate: bolus; Site: right forearm; sg Outcome: 12:11 Discharge ordered by . rn 13:30 Patient left the ED. sv Signatures: Dispatcher [employer] EDSherrie Marcos RN RN sv Gay, Steven, RN RN sg Nieto, Roman, MD MD rn Gonzales, Amanda, paper cleaner EKG Tat1
[2019-03-31 12:46] LABS: Urine Bacteria NONE SEEN /HPF (NONE SEEN); Urine Culture Reflex Order NOT NEEDED; Urine RBC <5 /HPF (NONE SEEN)
[2019-03-31 12:47] LABS: Urine Blood NEGATIVE (NEG); Urine Glucose NEGATIVE (NEG); Urine Protein NEGATIVE (NEG); Urine Specific Gravity 1.015 (1.005-1.030)
[2019-03-31 13:38] VITALS: TEMP 97.7
[2019-03-31 13:42] VITALS: BP 162/66; O2SAT 99
== END 2019-03-31 13:30 | disposition home or self-care (01) ==
LOC: ER 09:45
DX: E86.0 Dehydration (principal); I10 Essential (primary) hypertension; G20 Parkinson's disease; F02.80 Dementia in other diseases classified elsewhere, unspecified severity, without behavioral disturbance, psychotic disturbance, mood disturbance, and anxiety
CPT/HCPCS: 36415; 70450; 71045; 72125; 80048; 80076; 81003; 81015; 83690; 83735; 83880; 84145; 84484; 85025; 85610; 85730; 93005; 99284

== ENCOUNTER 2019-06-03 18:13 | Emergency (ER) | payer MEDICARE ==
--- OUTSIDE RECORDS SUMMARY | 2019-06-03 18:16 | XMS REPORT ---
:1940 [facility] Address [address] [place] [address] Care Team Providers Name Role Phone GHULAM [...] code=TROPI) < 0.012 NG/ML 0.012-0.033 Q 6HRS. LAB.[id number] 03:54:00 Test Item Value Reference Range Comments TROPONIN-I (test code=TROPI) < 0.012 NG/ML 0.012-0.033 [id number] 21:09:00 Test Item Value Reference Range Comments TROPONIN-I (test code=TROPI) < 0.012 NG/ML 0.012-0.033 COMPREHENSIVE METABOLIC [id number] 17:26:00 Test Item Value Reference Range Comments [...] ALKALINE PHOSPHATASE (test 86 UNITS/L 38-126 code=ALKP) [id number] 17:26:00 Test Item Value Reference Range Comments PHOSPHOROUS (test code=PHOS) 3.4 MG/DL 2.5-4.5 [id number] 17:26:00 Test Item Value Reference Range Comments MAGNESIUM (test code=MAG) 2.3 MG/DL 1.6-2.3 TROPONIN I [id number] 17:09:00 Test Item Value Reference Range Comments TROPONIN I RAPID (test code=TROPIRAP) 0.01 NG/ML 0.00-0.05 CBC W/AUTO [id number] 17:09:00 Test Item Value Reference Range Comments [...] code=NRBC#) 0.00 K/mm3 0.0-0.1 - XR CHEST [id number] 16:56:00 Patient Name: CARINA SAMANIEGO Unit No: [id number] EXAMS: CPT CODE: [id number] XR CHEST 1V 19330 EXAMINATION: - XR CHEST 1V. LOCATION: B2. [...] (1655) CassPR7 Orig Print D/T: S: 07/28/2018 (7964) [facility] NAME: CARINA SAMANIEGO [place] PHYS: [place] [address] : 1940 AGE: 78 SEX: M LOC: Andrea.ERS PHONE #: [phone] EXAM DATE: 2018 STATUS: PRE ER FAX #: [phone] RADIOLOGY NO: PAGE 1 Signed ReportBLOOD [id number] 11:02:00 Test Item Value Reference Range Comments CULTURE (BEAKER) (test jxck=5676) No growth in 5 days BLOOD [id number] 11:02:00 Test Item Value Reference Range Comments CULTURE (BEAKER) (test tbzm=3464) No growth in 5 days COMPREHENSIVE METABOLIC [id number] 13:41:00 Test Item Value Reference Range Comments TOTAL PROTEIN (BEAKER) 6.3 gm/dL 6.0-8.3 (test kzkn=990) ALBUMIN (BEAKER) (test 3.7 g/dL 3.5-5.0 dfyn=9781) ALKALINE PHOSPHATASE 86 U/L 40-150 (BEAKER) (test esao=340) BILIRUBIN TOTAL (BEAKER) 0.4 mg/dL 0.2-1.2 (test tbin=192) SODIUM (BEAKER) (test 139 meq/L 136-145 vckq=935) POTASSIUM (BEAKER) (test 4.1 meq/L 3.5-5.1 kotc=957) CHLORIDE (BEAKER) (test 104 meq/L 98-107 witw=312) CO2 (BEAKER) (test 27 meq/L 22-29 lxdo=439) BLOOD UREA NITROGEN 9 mg/dL 7-21 (BEAKER) (test jcod=074) CREATININE (BEAKER) (test 1.06 mg/dL 0.57-1.25 pfsq=758) GLUCOSE RANDOM (BEAKER) 104 mg/dL 70-105 (test cybj=494) CALCIUM (BEAKER) (test 9.1 mg/dL 8.4-10.2 fmha=475) AST (SGOT) (BEAKER) (test 19 U/L 5-34 uyur=658) ALT (SGPT) (BEAKER) (test < U/L 6-55 aykt=909) EGFR (BEAKER) (test 67 mL/min/1.73 sq m ESTIMATED GFR IS NOT jsbc=1834) ACCURATE CREATININE CLEARANCE IN PREDICTING GLOMERULAR FILTRATION RATE. ESTIMATED GFR IS NOT APPLICABLE FOR DIALYSIS PATIENTS. [id number] 13:24:00 Test Item Value Reference Range Comments MAGNESIUM (BEAKER) (test kvvh=886) 1.9 mg/dL 1.6-2.6 [id number] 13:24:00 Test Item Value Reference Range Comments LIPASE (BEAKER) (test oyoi=230) 521 U/L 8-78 U/S, ABDOMINAL, [id number] 11:30:00Abdomen limited area? Add comment if clarification [...] Benjamin Verified Date/Time: 07/01/2018 11:30:04 Reading Location: [facility] [id number] Ultrasound Reading Room [id number] 06:07: 00 Test Item Value Reference Range Comments MAGNESIUM (BEAKER) (test tbdm=067) 2.1 mg/dL 1.6-2.6 BASIC METABOLIC [id number] 06:07:00 Test Item Value Reference Range Comments SODIUM (BEAKER) (test 138 meq/L 136-145 rssy=250) POTASSIUM (BEAKER) (test 4.2 meq/L 3.5-5.1 xpcd=728) CHLORIDE (BEAKER) (test 107 meq/L 98-107 botx=087) CO2 (BEAKER) (test 25 meq/L 22-29 aflw=184) BLOOD UREA NITROGEN 9 mg/dL 7-21 (BEAKER) (test exmp=107) CREATININE (BEAKER) (test 0.95 mg/dL 0.57-1.25 pbzw=329) GLUCOSE RANDOM (BEAKER) 94 mg/dL 70-105 (test smyb=068) CALCIUM (BEAKER) (test 8.6 mg/dL 8.4-10.2 cqsg=958) EGFR (BEAKER) (test 76 mL/min/1.73 sq m ESTIMATED GFR IS NOT ochw=2910) ACCURATE CREATININE CLEARANCE IN PREDICTING GLOMERULAR FILTRATION RATE. ESTIMATED GFR IS NOT APPLICABLE FOR DIALYSIS PATIENTS. CBC W/PLT COUNT & AUTO [id number] 06:04:00 Test Item Value Reference Range Comments WHITE BLOOD CELL COUNT (BEAKER) (test fjsm=138) 5.3 K/ L 3.5-10.5 RED BLOOD CELL COUNT (BEAKER) (test iiqh=649) 3.16 M/ L 4.63-6.08 HEMOGLOBIN (BEAKER) (test napp=763) 10.0 GM/DL 13.7-17.5 HEMATOCRIT (BEAKER) (test hnti=057) 31.4 % 40.1-51.0 MEAN CORPUSCULAR VOLUME (BEAKER) (test ebuj=298) 99.4 fL 79.0-92.2 MEAN CORPUSCULAR HEMOGLOBIN (BEAKER) (test 31.6 pg 25.7-32.2 vhqf=458) MEAN CORPUSCULAR HEMOGLOBIN CONC (BEAKER) (test 31.8 GM/DL 32.3-36.5 wokl=616) RED CELL DISTRIBUTION WIDTH (BEAKER) (test 12.6 % 11.6-14.4 xniy=520) PLATELET COUNT (BEAKER) (test xund=088) 148 K/CU MM 150-450 MEAN PLATELET VOLUME (BEAKER) (test rxjo=802) 9.8 fL 9.4-12.4 NUCLEATED RED BLOOD CELLS (BEAKER) (test 0 /100 WBC 0-0 qexh=561) NEUTROPHILS RELATIVE PERCENT (BEAKER) (test 50 % molk=251) LYMPHOCYTES RELATIVE PERCENT (BEAKER) (test 34 % ewuh=012) MONOCYTES RELATIVE PERCENT (BEAKER) (test 12 % wphn=325) EOSINOPHILS RELATIVE PERCENT (BEAKER) (test 4 % ajiy=864) BASOPHILS RELATIVE PERCENT (BEAKER) (test 1 % soka=888) NEUTROPHILS ABSOLUTE COUNT (BEAKER) (test 2.60 K/ L 1.78-5.38 vfkm=497) LYMPHOCYTES ABSOLUTE COUNT (BEAKER) (test 1.76 K/ L 1.32-3.57 czcc=919) MONOCYTES ABSOLUTE COUNT (BEAKER) (test 0.65 K/ L 0.30-0.82 uyea=691) EOSINOPHILS ABSOLUTE COUNT (BEAKER) (test 0.20 K/ L 0.04-0.54 psmh=486) BASOPHILS ABSOLUTE COUNT (BEAKER) (test 0.03 K/ L 0.01-0.08 pabg=444) IMMATURE GRANULOCYTES-RELATIVE PERCENT (BEAKER) 0 % 0-1 (test pblu=9372) [id number] 10:30:00 Test Item Value Reference Range Comments MAGNESIUM (BEAKER) (test shaf=584) 1.9 mg/dL 1.6-2.6 CBC W/PLT COUNT & AUTO [id number] 07:07:00 Test Item Value Reference Range Comments WHITE BLOOD CELL COUNT (BEAKER) (test pjsi=110) 4.4 K/ L 3.5-10.5 RED BLOOD CELL COUNT (BEAKER) (test ahvv=363) 3.32 M/ L 4.63-6.08 HEMOGLOBIN (BEAKER) (test gjoq=937) 10.6 GM/DL 13.7-17.5 HEMATOCRIT (BEAKER) (test vqdm=964) 32.9 % 40.1-51.0 MEAN CORPUSCULAR VOLUME (BEAKER) (test kovw=138) 99.1 fL 79.0-92.2 MEAN CORPUSCULAR HEMOGLOBIN (BEAKER) (test 31.9 pg 25.7-32.2 vqbs=597) MEAN CORPUSCULAR HEMOGLOBIN CONC (BEAKER) (test 32.2 GM/DL 32.3-36.5 raye=547) RED CELL DISTRIBUTION WIDTH (BEAKER) (test 12.7 % 11.6-14.4 lwqp=904) PLATELET COUNT (BEAKER) (test budz=018) 145 K/CU MM 150-450 MEAN PLATELET VOLUME (BEAKER) (test tztp=024) 10.1 fL 9.4-12.4 NUCLEATED RED BLOOD CELLS (BEAKER) (test 0 /100 WBC 0-0 vflg=374) NEUTROPHILS RELATIVE PERCENT (BEAKER) (test 40 % uwrr=642) LYMPHOCYTES RELATIVE PERCENT (BEAKER) (test 44 % uben=489) MONOCYTES RELATIVE PERCENT (BEAKER) (test 12 % ebcu=077) EOSINOPHILS RELATIVE PERCENT (BEAKER) (test 4 % vreu=966) BASOPHILS RELATIVE PERCENT (BEAKER) (test 1 % fgjp=450) NEUTROPHILS ABSOLUTE COUNT (BEAKER) (test 1.74 K/ L 1.78-5.38 txyi=071) LYMPHOCYTES ABSOLUTE COUNT (BEAKER) (test 1.90 K/ L 1.32-3.57 omls=018) MONOCYTES ABSOLUTE COUNT (BEAKER) (test 0.54 K/ L 0.30-0.82 pnev=805) EOSINOPHILS ABSOLUTE COUNT (BEAKER) (test 0.16 K/ L 0.04-0.54 putp=350) BASOPHILS ABSOLUTE COUNT (BEAKER) (test 0.02 K/ L 0.01-0.08 frzn=475) IMMATURE GRANULOCYTES-RELATIVE PERCENT (BEAKER) 0 % 0-1 (test knqx=0853) BASIC METABOLIC [id number] 06:31:00 Test Item Value Reference Range Comments SODIUM (BEAKER) (test 138 meq/L 136-145 bses=843) POTASSIUM (BEAKER) (test 3.7 meq/L 3.5-5.1 cjkq=100) CHLORIDE (BEAKER) (test 107 meq/L 98-107 wusx=328) CO2 (BEAKER) (test 25 meq/L 22-29 lbam=109) BLOOD UREA NITROGEN 9 mg/dL 7-21 (BEAKER) (test jktj=069) CREATININE (BEAKER) (test 1.01 mg/dL 0.57-1.25 kmox=404) GLUCOSE RANDOM (BEAKER) 81 mg/dL 70-105 (test xrez=068) CALCIUM (BEAKER) (test 8.7 mg/dL 8.4-10.2 amrc=263) EGFR (BEAKER) (test 71 mL/min/1.73 sq m ESTIMATED GFR IS NOT pcsg=9268) ACCURATE CREATININE CLEARANCE IN PREDICTING GLOMERULAR FILTRATION RATE. ESTIMATED GFR IS NOT APPLICABLE FOR DIALYSIS PATIENTS. BASIC METABOLIC [id number] 06:27:00 Test Item Value Reference Range Comments SODIUM (BEAKER) (test 139 meq/L 136-145 bkpn=213) POTASSIUM (BEAKER) (test 4.1 meq/L 3.5-5.1 vfxl=752) CHLORIDE (BEAKER) (test 106 meq/L 98-107 yyuy=600) CO2 (BEAKER) (test 26 meq/L 22-29 cgcr=559) BLOOD UREA NITROGEN 10 mg/dL 7-21 (BEAKER) (test fpna=854) CREATININE (BEAKER) (test 0.98 mg/dL 0.57-1.25 ccah=855) GLUCOSE RANDOM (BEAKER) 78 mg/dL 70-105 (test zach=382) CALCIUM (BEAKER) (test 9.5 mg/dL 8.4-10.2 biqn=792) EGFR (BEAKER) (test mL/min/1.73 sq m INSUFFICIENT CLINICAL DATA vcxo=2781) TO CALCULATE ESTIMATED GFR. CBC W/PLT COUNT & AUTO [id number] 05:45:00 Test Item Value Reference Range Comments WHITE BLOOD CELL COUNT (BEAKER) (test uclw=797) 4.5 K/ L 3.5-10.5 RED BLOOD CELL COUNT (BEAKER) (test xjre=512) 3.71 M/ L 4.63-6.08 HEMOGLOBIN (BEAKER) (test dakf=867) 11.8 GM/DL 13.7-17.5 HEMATOCRIT (BEAKER) (test npxt=993) 36.0 % 40.1-51.0 MEAN CORPUSCULAR VOLUME (BEAKER) (test wkun=881) 97.0 fL 79.0-92.2 MEAN CORPUSCULAR HEMOGLOBIN (BEAKER) (test 31.8 pg 25.7-32.2 bnrw=123) MEAN CORPUSCULAR HEMOGLOBIN CONC (BEAKER) (test 32.8 GM/DL 32.3-36.5 yici=490) RED CELL DISTRIBUTION WIDTH (BEAKER) (test 12.6 % 11.6-14.4 pkvx=915) PLATELET COUNT (BEAKER) (test mvnn=102) 170 K/CU MM 150-450 MEAN PLATELET VOLUME (BEAKER) (test pute=592) 9.5 fL 9.4-12.4 NUCLEATED RED BLOOD CELLS (BEAKER) (test 0 /100 WBC 0-0 losy=264) NEUTROPHILS RELATIVE PERCENT (BEAKER) (test 50 % idno=375) LYMPHOCYTES RELATIVE PERCENT (BEAKER) (test 37 % umil=359) MONOCYTES RELATIVE PERCENT (BEAKER) (test 10 % cqhx=447) EOSINOPHILS RELATIVE PERCENT (BEAKER) (test 3 % zssg=015) BASOPHILS RELATIVE PERCENT (BEAKER) (test 0 % rtax=096) NEUTROPHILS ABSOLUTE COUNT (BEAKER) (test 2.23 K/ L 1.78-5.38 asts=907) LYMPHOCYTES ABSOLUTE COUNT (BEAKER) (test 1.67 K/ L 1.32-3.57 diox=194) MONOCYTES ABSOLUTE COUNT (BEAKER) (test 0.44 K/ L 0.30-0.82 aemc=254) EOSINOPHILS ABSOLUTE COUNT (BEAKER) (test 0.15 K/ L 0.04-0.54 tcdv=111) BASOPHILS ABSOLUTE COUNT (BEAKER) (test 0.02 K/ L 0.01-0.08 ffla=401) IMMATURE GRANULOCYTES-RELATIVE PERCENT (BEAKER) 0 % 0-1 (test onog=6699) CT, BRAIN, WITHOUT [id number] 23:42:00FINAL REPORT CT, BRAIN, WITHOUT CONTRAST CLINICAL [...] MDReport Verified Date/Time: 06/27/2018 23:42:40 Reading Location: [address] Neuro Reading Room URINALYSIS W/ REFLEX URINE [id number] 21:57:00 Test Item Value Reference Range Comments COLOR (BEAKER) (test iyye=016) Colorless CLARITY (BEAKER) (test hpxb=043) Clear SPECIFIC GRAVITY UA (BEAKER) (test rnia=466) 1.001 1.001-1.035 PH UA (BEAKER) (test grkf=553) 7.5 5.0-8.0 PROTEIN UA (BEAKER) (test aydm=728) Negative Negative GLUCOSE UA (BEAKER) (test uony=086) Negative Negative KETONES UA (BEAKER) (test bxsd=289) Negative Negative BILIRUBIN UA (BEAKER) (test vbpi=021) Negative Negative BLOOD UA (BEAKER) (test lkmr=185) Trace Negative NITRITE UA (BEAKER) (test ssxy=837) Negative Negative LEUKOCYTE ESTERASE UA (BEAKER) (test ttsu=154) Negative Negative UROBILINOGEN UA (BEAKER) (test lpkn=983) 0.2 mg/dL 0.2-1.0 RBC UA (BEAKER) (test dpdp=820) 1 /HPF WBC UA (BEAKER) (test onvm=722) < /HPF SOURCE(BEAKER) (test hnop=7810) RAD, CHEST, 1 VIEW, NON [id number] 21:14:00Reason for exam:->LOSS OF CONSCIOUSNESSShould this be performed at the bedside?->YesFINAL REPORT INDICATION: LOSS OF CONSCIOUSNESS COMPARISON: None TECHNIQUE: Single frontal view of the chest. FINDINGS: Lungs and pleura: Clear lungs. No effusion.Heart and mediastinum: Normal heart size. Unremarkable mediastinal contours.Osseous structures: No acute abnormality.Other: None. IMPRESSION: No acute intrathoracic abnormality. Signed: Christina Gutierrez MDReport Verified Date/Time: 06/27/2018 21:14:39 Reading Location: [address] Neuro Reading Room [id number] 20:36:00 Test Item Value Reference Range Comments MAGNESIUM (BEAKER) (test diht=709) 2.0 mg/dL 1.6-2.6 [id number] 20:36:00 Test Item Value Reference Range Comments PHOSPHORUS (BEAKER) (test vnxu=570) 2.9 mg/dL 2.3-4.7 TROPONIN [id number] 19:30:00 Test Item Value Reference Range Comments TROPONIN I (BEAKER) (test swwa=295) < ng/mL 0.00-0.03 Troponin I (TnI) levels [...] Range Comments B-TYPE NATRIURETIC PEPTIDE (BEAKER) (test byui=828) 94 pg/mL 0-100 BASIC METABOLIC [id number] 19:28:00 Test Item Value Reference Range Comments SODIUM (BEAKER) (test 138 meq/L 136-145 xrxk=146) POTASSIUM (BEAKER) (test 4.0 meq/L 3.5-5.1 dzih=884) CHLORIDE (BEAKER) (test 103 meq/L 98-107 vdit=836) CO2 (BEAKER) (test 29 meq/L 22-29 klfa=982) BLOOD UREA NITROGEN 15 mg/dL 7-21 (BEAKER) (test vqlv=202) CREATININE (BEAKER) (test 1.15 mg/dL 0.57-1.25 egsi=348) GLUCOSE RANDOM (BEAKER) 117 mg/dL 70-105 (test arow=634) CALCIUM (BEAKER) (test 9.0 mg/dL 8.4-10.2 plji=331) EGFR (BEAKER) (test mL/min/1.73 sq m INSUFFICIENT CLINICAL DATA vhmc=5529) TO CALCULATE ESTIMATED GFR. [id number] 19:24:00 Test Item Value Reference Range Comments LIPASE (BEAKER) (test glzr=453) 229 U/L 8-78 HEPATIC FUNCTION [id number] 19:24:00 Test Item Value Reference Range Comments TOTAL PROTEIN (BEAKER) (test jgzc=035) 6.0 gm/dL 6.0-8.3 ALBUMIN (BEAKER) (test povi=8924) 3.7 g/dL 3.5-5.0 BILIRUBIN TOTAL (BEAKER) (test ddvd=115) 0.5 mg/dL 0.2-1.2 BILIRUBIN DIRECT (BEAKER) (test uzrs=691) 0.3 mg/dL 0.1-0.5 ALKALINE PHOSPHATASE (BEAKER) (test royk=866) 78 U/L 40-150 AST (SGOT) (BEAKER) (test imuu=827) 32 U/L 5-34 ALT (SGPT) (BEAKER) (test jfqh=771) 6 U/L 6-55 CBC W/PLT COUNT & AUTO [id number] 19:05:00 Test Item Value Reference Range Comments WHITE BLOOD CELL COUNT (BEAKER) (test mwgb=456) 4.6 K/ L 3.5-10.5 RED BLOOD CELL COUNT (BEAKER) (test yffd=731) 3.38 M/ L 4.63-6.08 HEMOGLOBIN (BEAKER) (test ptmm=147) 10.8 GM/DL 13.7-17.5 HEMATOCRIT (BEAKER) (test kesr=910) 33.4 % 40.1-51.0 MEAN CORPUSCULAR VOLUME (BEAKER) (test ervu=028) 98.8 fL 79.0-92.2 MEAN CORPUSCULAR HEMOGLOBIN (BEAKER) (test 32.0 pg 25.7-32.2 vhct=435) MEAN CORPUSCULAR HEMOGLOBIN CONC (BEAKER) (test 32.3 GM/DL 32.3-36.5 noge=229) RED CELL DISTRIBUTION WIDTH (BEAKER) (test 12.8 % 11.6-14.4 banm=348) PLATELET COUNT (BEAKER) (test csyl=215) 160 K/CU MM 150-450 MEAN PLATELET VOLUME (BEAKER) (test raxm=727) 9.2 fL 9.4-12.4 NUCLEATED RED BLOOD CELLS (BEAKER) (test 0 /100 WBC 0-0 oaen=863) NEUTROPHILS RELATIVE PERCENT (BEAKER) (test 52 % hzxv=406) LYMPHOCYTES RELATIVE PERCENT (BEAKER) (test 35 % cfrq=549) MONOCYTES RELATIVE PERCENT (BEAKER) (test 11 % mrnx=393) EOSINOPHILS RELATIVE PERCENT (BEAKER) (test 3 % hjaj=419) BASOPHILS RELATIVE PERCENT (BEAKER) (test 0 % btgh=403) NEUTROPHILS ABSOLUTE COUNT (BEAKER) (test 2.34 K/ L 1.78-5.38 xyoj=163) LYMPHOCYTES ABSOLUTE COUNT (BEAKER) (test 1.57 K/ L 1.32-3.57 dosr=106) MONOCYTES ABSOLUTE COUNT (BEAKER) (test 0.48 K/ L 0.30-0.82 sigy=717) EOSINOPHILS ABSOLUTE COUNT (BEAKER) (test 0.14 K/ L 0.04-0.54 xqry=447) BASOPHILS ABSOLUTE COUNT (BEAKER) (test 0.02 K/ L 0.01-0.08 yfxi=261) IMMATURE GRANULOCYTES-RELATIVE PERCENT (BEAKER) 0 % 0-1 (test alse=5128)
[2019-06-03] MEDS ORDERED: ONDANSETRON 4 MG/2 ML VIAL ONE (19:13)
[2019-06-03] MEDS ORDERED: MORPHINE 2 MG/ML SYR ONE (19:13)
[2019-06-03] MEDS ORDERED: NA CHLORIDE 0.9% 500 ML ONE (19:13)
[2019-06-03 19:41] LABS: Absolute Lymphocytes (CBC) 1.3 K/uL (0.7-4.9); Basophils % 1.1 % (0-1.3); Hematocrit 33.9 % (39.6-49.0); Lymphocytes % 28.5 % (15.3-44.8); MPV 8.4 fL (7.6-11.3); RBC Red Blood Cell Count 3.62 M/uL (4.33-5.43)
[2019-06-03 19:55] LABS: AST/SGOT 22 U/L (15-37); Albumin 3.7 g/dL (3.4-5.0); Alkaline Phosphatase 95 U/L (45-117); BUN Blood Urea Nitrogen 23 mg/dL (7-18); Bicarbonate 26 mmol/L (21-32); Bilirubin Direct 0.2 mg/dL (0-0.2); Bilirubin Total 0.5 mg/dL (0.2-1.0); Glucose Level 84 mg/dL (74-106); Lipase 166 U/L (73-393); Potassium 4.3 mmol/L (3.5-5.1); Protein, Total 7.3 g/dL (6.4-8.2); Sodium Level 139 mmol/L (136-145)
[2019-06-03 19:57] LABS: ALT/SGPT < 6 U/L (12-78)
--- NOTE | 2019-06-03 20:27 | RAD REPORT ---
EXAM DESCRIPTION: CTAbdomen Pelvis W Contrast - 06/03/2019 8:17 pm CLINICAL HISTORY: Abdominal pain. ABD PAIN COMPARISON: Abdomen Pelvis W Contrast dated 11/07/2018; Abdomen Pelvis W Contrast dated 06/24/2018 TECHNIQUE: Biphasic CT imaging of the abdomen and pelvis was performed with 100 ml non-ionic IV cont rast. All CT scans are performed using dose optimization technique as appropriate and may include automated exposure control or mA/KV adjustment according to patient size. FINDINGS: Mild linear subsegmental atelectasis is present in both lung bases posteriorly. Small calculi are likely present in the gallbladder. No liver mass or biliary dilatation. The spleen, pancreas and adrenal glands are normal. Small nonobstructing stone is present inferior calyx right k idney. Small benign cysts left kidney is present. No bowel obstruction, free air, free fluid or abscess. There is a large volume of stool in the colon. A large right inguinal hernia containing stool filled small bowel is noted. Small amount of fluid is also present in the hernia sac. Appendectomy suspected. No evidence of significant lymphadenopathy. Aortic atherosclerosis. No suspicious bony findings. IMPRESSION: Large right inguinal hernia is seen containing stool-filled small bowel and a small amou nt of fluid. There is prominent fecal retention seen throughout the colon with stool also present in distal small bowel loops. Small bowel obstruction. Nonobstructing small right renal calculus. Probable cholelithiasis.
[2019-06-03 21:02] LABS: Urine Blood NEGATIVE (NEG); Urine Glucose NEGATIVE (NEG); Urine Protein NEGATIVE (NEG)
--- NOTE | 2019-06-03 21:37 | ER ---
Nurse's Notes [facility] Name: Sumanth Louis Age: 79 yrs Sex: Male : 1940 Arrival Date: 06/03/2019 Time: 18:17 Bed 18 Private MD: Rafa Barnes Diagnosis: Unspecified abdominal pain Presentation: 06/03 18:45 Presenting complaint: Jiezyjtr-il-zik states, Yesterday he c/o Lower abdominal pain on ca1 the L side. Worse when walking and goes away when sitting and laying down. But it has been 36 hours now and the pain is still there and has gotten worse. Reports that LLQ is tender to touch. Reports, He does have a R inguinal hernia. Transition of care: patient was not received from another setting of care. Onset of symptoms was June 03, 2019. Risk Assessment: Do you want to hurt yourself or someone else? Patient reports no desire to harm self or others. Initial Sepsis Screen: Does the patient meet any 2 criteria? Yes Does the patient have a suspected source of infection? No. Patient's initial sepsis screen is negative. Care prior to arrival: None. 18:45 Method Of Arrival: Wheelchair ca1 18:45 Acuity: IRINA 3 ca1 Historical: - Allergies: 18:53 No Known Allergies; ca1 - Home Meds: 18:53 carbidopa-levodopa 25-250 mg Oral tab 1 tab 3 times per day [Active]; aspirin 81 mg ca1 Oral TbEC 1 tab once daily [Active]; atorvastatin 20 mg Oral tab 1 tab once daily [Active]; - PMHx: 18:53 Parkinsons; Dementia; Pancreatitis; CHF; BPH; Anemia; Inguinal hernia R; Macular ca1 Degeneration; Peripheral Arterial Occlusive Disease; Essential Hypertension; Anxiety; osteoarthritis; - PSHx: 18:53 Appendectomy; ca1 - Immunization history:: Adult Immunizations up to date, Pneumococcal vaccine is not up to date, Flu vaccine is not up to date. - Coronavirus screen:: The patient has NOT traveled to [place], [place], or [place] in the past 14 days. The patient has NOT had contact with known/suspected case of Coronavirus?. - Social history:: Smoking status: Patient denies any tobacco usage or history of. - Ebola Screening: : Patient negative for fever greater than or equal to 101.5 degrees Fahrenheit, and additional compatible Ebola Virus Disease symptoms Patient denies exposure to infectious person Patient denies travel to an Ebola-affected area in the 21 days before illness onset No symptoms or risks identified at this time. Screenin:30 Abuse screen: Denies threats or abuse. Denies injuries from another. Nutritional mg2 screening: No deficits noted. Tuberculosis screening: No symptoms or risk factors identified. Fall Risk IV access (20 points). Assessment: 19:30 General: Appears in no apparent distress. comfortable, Behavior is calm, cooperative. mg2 Pain: Complains of pain in abdomen. Neuro: Level of Consciousness is awake, alert, obeys commands, Oriented to person, place, time, situation. Cardiovascular: Capillary refill < 3 seconds Patient's skin is warm and dry. Respiratory: Airway is patent Respiratory effort is even, unlabored, Respiratory pattern is regular, symmetrical. GI: Bowel sounds present X 4 quads. Abd is soft Reports lower abdominal pain, upper abdominal pain. : No signs and/or symptoms were reported regarding the genitourinary system. EENT: No signs and/or symptoms were reported regarding the EENT system. Derm: Skin is intact, is healthy with good turgor, Skin is pink, warm \T\ dry. normal. Musculoskeletal: Circulation, motion, and sensation intact. Capillary refill < 3 seconds. 21:25 Reassessment: Patient appears in no apparent distress at this time. Patient and/or mg2 family updated on plan of care and expected duration. Pain level reassessed. Patient is alert, oriented x 3, equal unlabored respirations, skin warm/dry/pink. Vital Signs: 18:53 BP 125 / 71; Pulse 60; Resp 17 S; Temp 97.79(TE); Pulse Ox 98% on R/A; Height 5 ft. 3 ca1 in. (160.02 cm) (R); Pain 4/10; 21:25 BP 156 / 68; Pulse 61; Resp 18; Pulse Ox 100% on R/A; mg2 ED Course: 18:17 Patient arrived in ED. mr 18:17 Rafa Barnes DO is Private Physician. mr 18:49 Triage completed. ca1 18:53 Arm band placed on right wrist. ca1 18:57 Roscoe Montejo FNP-C is [facility]. la1 18:57 Arvin Armendariz MD is Attending Physician. la1 19:29 Tunde Arredondo, RN is Primary Nurse. mg2 19:30 No provider procedures requiring assistance completed. Inserted saline lock: 20 gauge mg2 in right antecubital area, using aseptic technique. Blood collected. by [facility] Lara Tech. 19:31 Patient has correct armband on for positive identification. mg2 22:11 IV discontinued, intact, bleeding controlled, No redness/swelling at site. Pressure mg2 dressing applied. Administered Medications: 19:29 Drug: morphine 2 mg Route: IVP; Site: right antecubital; mg2 21:57 Follow up: Response: No adverse reaction; Marked relief of symptoms mg2 19:29 Drug: Zofran 4 mg Route: IVP; Site: right antecubital; mg2 21:57 Follow up: Response: No adverse reaction mg2 19:29 Drug: NS 0.9% 500 ml Route: IV; Rate: bolus; Site: left forearm; mg2 21:56 Follow up: IV Status: Completed infusion; IV Intake: 500ml mg2 Intake: 21:56 IV: 500ml; Total: 500ml. mg2 Outcome: 21:37 Discharge ordered by . la1 22:11 Discharged to home via wheelchair, with family. mg2 22:11 Condition: stable 22:11 Discharge instructions given to patient, family, Instructed on discharge instructions, follow up and referral plans. Demonstrated understanding of instructions, follow-up care. 22:12 Patient left the ED. mg2 Signatures: Elsie Nice Lee, WEIGHT RECORDER-C WEIGHT RECORDER-Cla1 Tunde Arredondo, SOCORRO RN mg2 Sunshine Linares RN RN ca1
--- NOTE | 2019-06-03 21:38 | EDPHYS ---
Physician Documentation [facility] Name: Sumanth Louis Age: 79 yrs Sex: Male : 1940 Arrival Date: 06/03/2019 Time: 18:17 Bed 18 Private MD: Rafa Barnes ED Physician Arvin Armendariz HPI: 06/03 19:30 This 79 yrs old Male presents to ER via Wheelchair with complaints of la1 Abdominal Pain. 19:30 The patient presents with abdominal pain in the left lower quadrant. Onset: The la1 symptoms/episode began/occurred yesterday. The symptoms do not radiate. Associated signs and symptoms: Pertinent positives: nausea, Pertinent negatives: fever. The symptoms are described as sharp. Modifying factors: The symptoms are alleviated by nothing, the symptoms are aggravated by nothing. Severity of pain: At its worst the pain was moderate. The patient has experienced similar episodes in the past. The patient has not recently seen a physician. Historical: - Allergies: 18:53 No Known Allergies; ca1 - Home Meds: 18:53 carbidopa-levodopa 25-250 mg Oral tab 1 tab 3 times per day [Active]; aspirin 81 mg ca1 Oral TbEC 1 tab once daily [Active]; atorvastatin 20 mg Oral tab 1 tab once daily [Active]; - PMHx: 18:53 Parkinsons; Dementia; Pancreatitis; CHF; BPH; Anemia; Inguinal hernia R; Macular ca1 Degeneration; Peripheral Arterial Occlusive Disease; Essential Hypertension; Anxiety; osteoarthritis; - PSHx: 18:53 Appendectomy; ca1 - Immunization history:: Adult Immunizations up to date, Pneumococcal vaccine is not up to date, Flu vaccine is not up to date. - Coronavirus screen:: The patient has NOT traveled to [place], [place], or [place] in the past 14 days. The patient has NOT had contact with known/suspected case of Coronavirus?. - Social history:: Smoking status: Patient denies any tobacco usage or history of. - Ebola Screening: : Patient negative for fever greater than or equal to 101.5 degrees Fahrenheit, and additional compatible Ebola Virus Disease symptoms Patient denies exposure to infectious person Patient denies travel to an Ebola-affected area in the 21 days before illness onset No symptoms or risks identified at this time. ROS: 19:31 Constitutional: Negative for fever, chills, and weight loss, Eyes: Negative for injury, la1 pain, redness, and discharge, ENT: Negative for injury, pain, and discharge, Neck: Negative for injury, pain, and swelling, Cardiovascular: Negative for chest pain, palpitations, and edema, Respiratory: Negative for shortness of breath, cough, wheezing, and pleuritic chest pain. 19:31 Back: Negative for injury and pain, : Negative for injury, bleeding, discharge, and swelling, MS/Extremity: Negative for injury and deformity, Skin: Negative for injury, rash, and discoloration, Neuro: Negative for headache, weakness, numbness, tingling, and seizure. 19:31 Abdomen/GI: Positive for abdominal pain. Exam: 19:32 Constitutional: This is a well developed, well nourished patient who is awake, alert, la1 and in no acute distress. Head/Face: Normocephalic, atraumatic. Eyes: Pupils equal round and reactive to light, extra-ocular motions intact. ENT: Mucous membranes moist. Neck: Trachea midline, Chest/axilla: Normal chest wall appearance and motion. Nontender with no deformity. No lesions are appreciated. Cardiovascular: Regular rate and rhythm with a normal S1 and S2. No gallops, murmurs, or rubs. Normal PMI, no JVD. No pulse deficits. Respiratory: Lungs have equal breath sounds bilaterally, clear to auscultation Abdomen/GI: Soft, non-tender, Back: No spinal tenderness. No costovertebral tenderness. Full range of motion. Skin: Warm, dry with normal turgor. Normal color with no rashes, no lesions, and no evidence of cellulitis. Neuro: Awake and alert. Vital Signs: 18:53 BP 125 / 71; Pulse 60; Resp 17 S; Temp 97.79(TE); Pulse Ox 98% on R/A; Height 5 ft. 3 ca1 in. (160.02 cm) (R); Pain 4/10; 21:25 BP 156 / 68; Pulse 61; Resp 18; Pulse Ox 100% on R/A; mg2 MDM: 18:57 Patient medically screened. la1 21:35 Data reviewed: vital signs, nurses notes, lab test result(s), radiologic studies, I la1 have discussed the patient's presentation/case with the attending Emergency Department Physician; and as a result, I will discharge patient. Data interpreted: Pulse oximetry: on room air is 100 %. Interpretation: normal. Counseling: I had a detailed discussion with the patient and/or guardian regarding: the historical points, exam findings, and any diagnostic results supporting the discharge/admit diagnosis, radiology results, the need for outpatient follow up, to return to the emergency department if symptoms worsen or persist or if there are any questions or concerns that arise at home. Special discussion: Based on the patient's Hx, exam, and Dx evaluation, there is no indication for emergent surgery or inpatient Tx. It is understood by the patient/guardian that if the Sx's persist or worsen they need to return immediately for re-evaluation. 06/03 19:06 Order name: Basic Metabolic Panel ma06/03 19:06 Order name: CBC with Diff ma06/03 19:06 Order name: Creatinine for Radiology ma06/03 19:06 Order name: Hepatic Function [facility] 06/03 19:06 Order name: Lipase [facility] 06/03 19:44 Order name: CBC with Automated Diff; Complete Time: 21:11 [facility] 06/03 19:06 Order name: CT Abd/Pelvis - IV Contrast Only ma06/03 19:55 Order name: Creatinine (Radiology Only); Complete Time: 21:11 [facility] 06/03 19:58 Order name: Basic Metabolic Panel; Complete Time: 21:11 [facility] 06/03 19:58 Order name: Liver (Hepatic) Function; Complete Time: 21:11 [facility] 06/03 19:58 Order name: Lipase; Complete Time: 21:11 [facility] 06/03 20:13 Order name: Urine Dipstick--Ancillary (enter results); Complete Time: 21:11 [facility] 06/03 20:38 Order name: CT; Complete Time: 21:11 [facility] 06/03 19:06 Order name: IV Saline Lock; Complete Time: 19:12 ma06/03 19:06 Order name: Labs collected and sent; Complete Time: 19:12 ma06/03 19:06 Order name: Urine Dipstick-Ancillary (obtain specimen); Complete Time: 20:12 la Administered Medications: 19:29 Drug: morphine 2 mg Route: IVP; Site: right antecubital; mg2 21:57 Follow up: Response: No adverse reaction; Marked relief of symptoms mg2 19:29 Drug: Zofran 4 mg Route: IVP; Site: right antecubital; mg2 21:57 Follow up: Response: No adverse reaction mg2 19:29 Drug: NS 0.9% 500 ml Route: IV; Rate: bolus; Site: left forearm; mg2 21:56 Follow up: IV Status: Completed infusion; IV Intake: 500ml mg2 Disposition: 06/04 07:39 Co-signature as Attending Physician, Arvin Armendariz MD. rn Disposition: 06/03/19 21:37 Discharged to Home. Impression: Unspecified abdominal pain. - Condition is Stable. - Discharge Instructions: Constipation, Adult, Abdominal Pain, Adult, Verk-xc-Pfed. - Medication Reconciliation Form, Thank You Letter form. - Follow up: Private Physician; When: 2 - 3 days; Reason: Recheck today's complaints, Re-evaluation by your physician. - Problem is new. - Symptoms have improved. Signatures: Dispatcher [employer] EDMS Arvin Armendariz MD MD rn Roscoe Montejo, BORING MACHINE OPERATOR PRODUCTION-C BORING MACHINE OPERATOR PRODUCTION-Cla1 Tunde Arredondo RN RN mg2 Sunshine Linares RN RN ca1 Corrections: (The following items were deleted from the chart) 06/03 22:12 21:37 06/03/2019 21:37 Discharged to Home. Impression: Unspecified abdominal pain. mg2 Condition is Stable. Forms are Medication Reconciliation Form, Thank You Letter, Antibiotic Education, Prescription Opioid Use. Follow up: Private Physician; When: 2 - 3 days; Reason: Recheck today's complaints, Re-evaluation by your physician. Problem is new. Symptoms have improved. la1
[2019-06-03 22:25] VITALS: BP 156/68; O2SAT 100
== END 2019-06-03 22:12 | disposition home or self-care (01) ==
LOC: ER 18:13
DX: R10.9 Unspecified abdominal pain (principal); I10 Essential (primary) hypertension
CPT/HCPCS: 96361; 85025; 80048; 36415; 80076; 81003; 83690; 74177; 96375; 96374; 99283; Q9967; J2270; J7040; J2405

== ENCOUNTER 2019-06-07 15:12 | Inpatient (IN) | payer MEDICARE ==
--- OUTSIDE RECORDS SUMMARY | 2019-06-07 15:16 | XMS REPORT ---
:1940 [facility] Address [address] [place] [address] Care Team Providers Name Role Phone GHULAM [...] code=TROPI) < 0.012 NG/ML 0.012-0.033 Q 6HRS. [id number] 03:54:00 Test Item Value Reference Range Comments TROPONIN-I (test code=TROPI) < 0.012 NG/ML 0.012-0.033 [id number] 21:09:00 Test Item Value Reference Range Comments TROPONIN-I (test code=TROPI) < 0.012 NG/ML 0.012-0.033 COMPREHENSIVE METABOLIC [id number] 17:26:00 Test Item Value Reference Range Comments [...] ALKALINE PHOSPHATASE (test 86 UNITS/L 38-126 code=ALKP) [id number] 17:26:00 Test Item Value Reference Range Comments PHOSPHOROUS (test code=PHOS) 3.4 MG/DL 2.5-4.5 [id number] 17:26:00 Test Item Value Reference Range Comments MAGNESIUM (test code=MAG) 2.3 MG/DL 1.6-2.3 TROPONIN I [id number] 17:09:00 Test Item Value Reference Range Comments TROPONIN I RAPID (test code=TROPIRAP) 0.01 NG/ML 0.00-0.05 CBC W/AUTO [id number] 17:09:00 Test Item Value Reference Range Comments [...] code=NRBC#) 0.00 K/mm3 0.0-0.1 - XR CHEST [id number] 16:56:00 Patient Name: CARINA SAMANIEGO Unit No: [id number] EXAMS: CPT CODE: [id number] XR CHEST 1V 91403 EXAMINATION: - XR CHEST 1V. LOCATION: B2. [...] (1655) CassPR7 Orig Print D/T: S: 07/28/2018 (3839) [facility] NAME: CARINA SAMANIEGO Malakoff PHYS: [place] [address] : 1940 AGE: 78 SEX: M LOC: Andrea.ERS PHONE #: [phone] EXAM DATE: 2018 STATUS: PRE ER FAX #: [phone] RADIOLOGY NO: PAGE 1 Signed ReportBLOOD [id number] 11:02:00 Test Item Value Reference Range Comments CULTURE (BEAKER) (test gime=2752) No growth in 5 days BLOOD [id number] 11:02:00 Test Item Value Reference Range Comments CULTURE (BEAKER) (test ghgr=8807) No growth in 5 days COMPREHENSIVE METABOLIC [id number] 13:41:00 Test Item Value Reference Range Comments TOTAL PROTEIN (BEAKER) 6.3 gm/dL 6.0-8.3 (test owis=162) ALBUMIN (BEAKER) (test 3.7 g/dL 3.5-5.0 mirr=1145) ALKALINE PHOSPHATASE 86 U/L 40-150 (BEAKER) (test tnek=713) BILIRUBIN TOTAL (BEAKER) 0.4 mg/dL 0.2-1.2 (test pbjr=341) SODIUM (BEAKER) (test 139 meq/L 136-145 otlm=023) POTASSIUM (BEAKER) (test 4.1 meq/L 3.5-5.1 fqga=404) CHLORIDE (BEAKER) (test 104 meq/L 98-107 cnmv=251) CO2 (BEAKER) (test 27 meq/L 22-29 pqep=705) BLOOD UREA NITROGEN 9 mg/dL 7-21 (BEAKER) (test gnhy=720) CREATININE (BEAKER) (test 1.06 mg/dL 0.57-1.25 tlwp=598) GLUCOSE RANDOM (BEAKER) 104 mg/dL 70-105 (test sobl=680) CALCIUM (BEAKER) (test 9.1 mg/dL 8.4-10.2 syux=706) AST (SGOT) (BEAKER) (test 19 U/L 5-34 uwxj=643) ALT (SGPT) (BEAKER) (test < U/L 6-55 xfnx=580) EGFR (BEAKER) (test 67 mL/min/1.73 sq m ESTIMATED GFR IS NOT ttxm=0865) ACCURATE CREATININE CLEARANCE IN PREDICTING GLOMERULAR FILTRATION RATE. ESTIMATED GFR IS NOT APPLICABLE FOR DIALYSIS PATIENTS. [id number] 13:24:00 Test Item Value Reference Range Comments MAGNESIUM (BEAKER) (test tmlg=605) 1.9 mg/dL 1.6-2.6 [id number] 13:24:00 Test Item Value Reference Range Comments LIPASE (BEAKER) (test jgee=234) 521 U/L 8-78 U/S, ABDOMINAL, [id number] 11:30:00Abdomen limited area? Add comment if clarification [...] Benjamin Verified Date/Time: 07/01/2018 11:30:04 Reading Location: [facility] [id number] Ultrasound Reading Room [id number] 06:07: 00 Test Item Value Reference Range Comments MAGNESIUM (BEAKER) (test hrqo=790) 2.1 mg/dL 1.6-2.6 BASIC METABOLIC [id number] 06:07:00 Test Item Value Reference Range Comments SODIUM (BEAKER) (test 138 meq/L 136-145 ujwf=966) POTASSIUM (BEAKER) (test 4.2 meq/L 3.5-5.1 nuft=011) CHLORIDE (BEAKER) (test 107 meq/L 98-107 wjix=435) CO2 (BEAKER) (test 25 meq/L 22-29 fjuv=826) BLOOD UREA NITROGEN 9 mg/dL 7-21 (BEAKER) (test hbbm=188) CREATININE (BEAKER) (test 0.95 mg/dL 0.57-1.25 qyui=059) GLUCOSE RANDOM (BEAKER) 94 mg/dL 70-105 (test ejay=442) CALCIUM (BEAKER) (test 8.6 mg/dL 8.4-10.2 wclz=102) EGFR (BEAKER) (test 76 mL/min/1.73 sq m ESTIMATED GFR IS NOT oriz=6542) ACCURATE CREATININE CLEARANCE IN PREDICTING GLOMERULAR FILTRATION RATE. ESTIMATED GFR IS NOT APPLICABLE FOR DIALYSIS PATIENTS. CBC W/PLT COUNT & AUTO [id number] 06:04:00 Test Item Value Reference Range Comments WHITE BLOOD CELL COUNT (BEAKER) (test iqgf=809) 5.3 K/ L 3.5-10.5 RED BLOOD CELL COUNT (BEAKER) (test nuen=675) 3.16 M/ L 4.63-6.08 HEMOGLOBIN (BEAKER) (test znlj=166) 10.0 GM/DL 13.7-17.5 HEMATOCRIT (BEAKER) (test fzms=374) 31.4 % 40.1-51.0 MEAN CORPUSCULAR VOLUME (BEAKER) (test zide=566) 99.4 fL 79.0-92.2 MEAN CORPUSCULAR HEMOGLOBIN (BEAKER) (test 31.6 pg 25.7-32.2 bhpe=691) MEAN CORPUSCULAR HEMOGLOBIN CONC (BEAKER) (test 31.8 GM/DL 32.3-36.5 kcta=276) RED CELL DISTRIBUTION WIDTH (BEAKER) (test 12.6 % 11.6-14.4 vdsz=118) PLATELET COUNT (BEAKER) (test ptlj=909) 148 K/CU MM 150-450 MEAN PLATELET VOLUME (BEAKER) (test ybio=469) 9.8 fL 9.4-12.4 NUCLEATED RED BLOOD CELLS (BEAKER) (test 0 /100 WBC 0-0 sceb=731) NEUTROPHILS RELATIVE PERCENT (BEAKER) (test 50 % rsvl=540) LYMPHOCYTES RELATIVE PERCENT (BEAKER) (test 34 % ogpx=787) MONOCYTES RELATIVE PERCENT (BEAKER) (test 12 % ydyi=355) EOSINOPHILS RELATIVE PERCENT (BEAKER) (test 4 % uipa=978) BASOPHILS RELATIVE PERCENT (BEAKER) (test 1 % tjep=271) NEUTROPHILS ABSOLUTE COUNT (BEAKER) (test 2.60 K/ L 1.78-5.38 arxh=035) LYMPHOCYTES ABSOLUTE COUNT (BEAKER) (test 1.76 K/ L 1.32-3.57 ergw=476) MONOCYTES ABSOLUTE COUNT (BEAKER) (test 0.65 K/ L 0.30-0.82 blrc=314) EOSINOPHILS ABSOLUTE COUNT (BEAKER) (test 0.20 K/ L 0.04-0.54 mirh=074) BASOPHILS ABSOLUTE COUNT (BEAKER) (test 0.03 K/ L 0.01-0.08 zutx=387) IMMATURE GRANULOCYTES-RELATIVE PERCENT (BEAKER) 0 % 0-1 (test dcur=8115) [id number] 10:30:00 Test Item Value Reference Range Comments MAGNESIUM (BEAKER) (test hpus=745) 1.9 mg/dL 1.6-2.6 CBC W/PLT COUNT & AUTO [id number] 07:07:00 Test Item Value Reference Range Comments WHITE BLOOD CELL COUNT (BEAKER) (test bsmz=636) 4.4 K/ L 3.5-10.5 RED BLOOD CELL COUNT (BEAKER) (test mqkx=209) 3.32 M/ L 4.63-6.08 HEMOGLOBIN (BEAKER) (test akgr=832) 10.6 GM/DL 13.7-17.5 HEMATOCRIT (BEAKER) (test vtcn=880) 32.9 % 40.1-51.0 MEAN CORPUSCULAR VOLUME (BEAKER) (test ztex=222) 99.1 fL 79.0-92.2 MEAN CORPUSCULAR HEMOGLOBIN (BEAKER) (test 31.9 pg 25.7-32.2 ujni=651) MEAN CORPUSCULAR HEMOGLOBIN CONC (BEAKER) (test 32.2 GM/DL 32.3-36.5 ulkx=255) RED CELL DISTRIBUTION WIDTH (BEAKER) (test 12.7 % 11.6-14.4 xjvd=689) PLATELET COUNT (BEAKER) (test jcis=852) 145 K/CU MM 150-450 MEAN PLATELET VOLUME (BEAKER) (test pmss=343) 10.1 fL 9.4-12.4 NUCLEATED RED BLOOD CELLS (BEAKER) (test 0 /100 WBC 0-0 umjl=019) NEUTROPHILS RELATIVE PERCENT (BEAKER) (test 40 % nriy=539) LYMPHOCYTES RELATIVE PERCENT (BEAKER) (test 44 % dgpq=700) MONOCYTES RELATIVE PERCENT (BEAKER) (test 12 % nvrc=819) EOSINOPHILS RELATIVE PERCENT (BEAKER) (test 4 % dlmb=837) BASOPHILS RELATIVE PERCENT (BEAKER) (test 1 % fars=137) NEUTROPHILS ABSOLUTE COUNT (BEAKER) (test 1.74 K/ L 1.78-5.38 cugi=064) LYMPHOCYTES ABSOLUTE COUNT (BEAKER) (test 1.90 K/ L 1.32-3.57 svzv=445) MONOCYTES ABSOLUTE COUNT (BEAKER) (test 0.54 K/ L 0.30-0.82 zhyx=356) EOSINOPHILS ABSOLUTE COUNT (BEAKER) (test 0.16 K/ L 0.04-0.54 axcm=434) BASOPHILS ABSOLUTE COUNT (BEAKER) (test 0.02 K/ L 0.01-0.08 tfjp=085) IMMATURE GRANULOCYTES-RELATIVE PERCENT (BEAKER) 0 % 0-1 (test kabt=6474) BASIC METABOLIC [id number] 06:31:00 Test Item Value Reference Range Comments SODIUM (BEAKER) (test 138 meq/L 136-145 kgxa=583) POTASSIUM (BEAKER) (test 3.7 meq/L 3.5-5.1 nqlr=421) CHLORIDE (BEAKER) (test 107 meq/L 98-107 zxdm=069) CO2 (BEAKER) (test 25 meq/L 22-29 vrbo=200) BLOOD UREA NITROGEN 9 mg/dL 7-21 (BEAKER) (test qbol=193) CREATININE (BEAKER) (test 1.01 mg/dL 0.57-1.25 ezei=000) GLUCOSE RANDOM (BEAKER) 81 mg/dL 70-105 (test faym=860) CALCIUM (BEAKER) (test 8.7 mg/dL 8.4-10.2 zkyx=892) EGFR (BEAKER) (test 71 mL/min/1.73 sq m ESTIMATED GFR IS NOT pnic=2805) ACCURATE CREATININE CLEARANCE IN PREDICTING GLOMERULAR FILTRATION RATE. ESTIMATED GFR IS NOT APPLICABLE FOR DIALYSIS PATIENTS. BASIC METABOLIC [id number] 06:27:00 Test Item Value Reference Range Comments SODIUM (BEAKER) (test 139 meq/L 136-145 utsc=103) POTASSIUM (BEAKER) (test 4.1 meq/L 3.5-5.1 fmty=157) CHLORIDE (BEAKER) (test 106 meq/L 98-107 xtsa=245) CO2 (BEAKER) (test 26 meq/L 22-29 qdpf=543) BLOOD UREA NITROGEN 10 mg/dL 7-21 (BEAKER) (test xrpz=060) CREATININE (BEAKER) (test 0.98 mg/dL 0.57-1.25 azbi=080) GLUCOSE RANDOM (BEAKER) 78 mg/dL 70-105 (test muzk=582) CALCIUM (BEAKER) (test 9.5 mg/dL 8.4-10.2 dkco=391) EGFR (BEAKER) (test mL/min/1.73 sq m INSUFFICIENT CLINICAL DATA ypch=3046) TO CALCULATE ESTIMATED GFR. CBC W/PLT COUNT & AUTO [id number] 05:45:00 Test Item Value Reference Range Comments WHITE BLOOD CELL COUNT (BEAKER) (test epvx=101) 4.5 K/ L 3.5-10.5 RED BLOOD CELL COUNT (BEAKER) (test hfoi=999) 3.71 M/ L 4.63-6.08 HEMOGLOBIN (BEAKER) (test hvvv=417) 11.8 GM/DL 13.7-17.5 HEMATOCRIT (BEAKER) (test zawq=867) 36.0 % 40.1-51.0 MEAN CORPUSCULAR VOLUME (BEAKER) (test cwsf=828) 97.0 fL 79.0-92.2 MEAN CORPUSCULAR HEMOGLOBIN (BEAKER) (test 31.8 pg 25.7-32.2 cczk=896) MEAN CORPUSCULAR HEMOGLOBIN CONC (BEAKER) (test 32.8 GM/DL 32.3-36.5 zdyr=817) RED CELL DISTRIBUTION WIDTH (BEAKER) (test 12.6 % 11.6-14.4 nkyn=779) PLATELET COUNT (BEAKER) (test oqdl=090) 170 K/CU MM 150-450 MEAN PLATELET VOLUME (BEAKER) (test egfs=418) 9.5 fL 9.4-12.4 NUCLEATED RED BLOOD CELLS (BEAKER) (test 0 /100 WBC 0-0 llkz=132) NEUTROPHILS RELATIVE PERCENT (BEAKER) (test 50 % yuyn=895) LYMPHOCYTES RELATIVE PERCENT (BEAKER) (test 37 % gltl=180) MONOCYTES RELATIVE PERCENT (BEAKER) (test 10 % xgdb=905) EOSINOPHILS RELATIVE PERCENT (BEAKER) (test 3 % skwn=003) BASOPHILS RELATIVE PERCENT (BEAKER) (test 0 % fchf=844) NEUTROPHILS ABSOLUTE COUNT (BEAKER) (test 2.23 K/ L 1.78-5.38 rgya=287) LYMPHOCYTES ABSOLUTE COUNT (BEAKER) (test 1.67 K/ L 1.32-3.57 ypya=934) MONOCYTES ABSOLUTE COUNT (BEAKER) (test 0.44 K/ L 0.30-0.82 rpnh=651) EOSINOPHILS ABSOLUTE COUNT (BEAKER) (test 0.15 K/ L 0.04-0.54 lxdk=034) BASOPHILS ABSOLUTE COUNT (BEAKER) (test 0.02 K/ L 0.01-0.08 pwld=507) IMMATURE GRANULOCYTES-RELATIVE PERCENT (BEAKER) 0 % 0-1 (test euub=3617) CT, BRAIN, WITHOUT [id number] 23:42:00FINAL REPORT CT, BRAIN, WITHOUT CONTRAST CLINICAL [...] MDReport Verified Date/Time: 06/27/2018 23:42:40 Reading Location: [address] Neuro Reading Room URINALYSIS W/ REFLEX URINE [id number] 21:57:00 Test Item Value Reference Range Comments COLOR (BEAKER) (test sgro=630) Colorless CLARITY (BEAKER) (test ovbu=854) Clear SPECIFIC GRAVITY UA (BEAKER) (test otiu=094) 1.001 1.001-1.035 PH UA (BEAKER) (test sbpf=601) 7.5 5.0-8.0 PROTEIN UA (BEAKER) (test jash=541) Negative Negative GLUCOSE UA (BEAKER) (test jsce=183) Negative Negative KETONES UA (BEAKER) (test hxdk=500) Negative Negative BILIRUBIN UA (BEAKER) (test mogw=179) Negative Negative BLOOD UA (BEAKER) (test efwd=647) Trace Negative NITRITE UA (BEAKER) (test mlfc=757) Negative Negative LEUKOCYTE ESTERASE UA (BEAKER) (test bceh=122) Negative Negative UROBILINOGEN UA (BEAKER) (test mjgq=349) 0.2 mg/dL 0.2-1.0 RBC UA (BEAKER) (test blrg=042) 1 /HPF WBC UA (BEAKER) (test sswq=640) < /HPF SOURCE(BEAKER) (test lxpw=5360) RAD, CHEST, 1 VIEW, NON [id number] 21:14:00Reason for exam:->LOSS OF CONSCIOUSNESSShould this be performed at the bedside?->YesFINAL REPORT INDICATION: LOSS OF CONSCIOUSNESS COMPARISON: None TECHNIQUE: Single frontal view of the chest. FINDINGS: Lungs and pleura: Clear lungs. No effusion.Heart and mediastinum: Normal heart size. Unremarkable mediastinal contours.Osseous structures: No acute abnormality.Other: None. IMPRESSION: No acute intrathoracic abnormality. Signed: Christina Gutierrez MDReport Verified Date/Time: 06/27/2018 21:14:39 Reading Location: [address] Neuro Reading Room [id number] 20:36:00 Test Item Value Reference Range Comments MAGNESIUM (BEAKER) (test zqjg=700) 2.0 mg/dL 1.6-2.6 [id number] 20:36:00 Test Item Value Reference Range Comments PHOSPHORUS (BEAKER) (test qzrz=296) 2.9 mg/dL 2.3-4.7 TROPONIN [id number] 19:30:00 Test Item Value Reference Range Comments TROPONIN I (BEAKER) (test aghg=013) < ng/mL 0.00-0.03 Troponin I (TnI) levels [...] Range Comments B-TYPE NATRIURETIC PEPTIDE (BEAKER) (test ivwo=692) 94 pg/mL 0-100 BASIC METABOLIC [id number] 19:28:00 Test Item Value Reference Range Comments SODIUM (BEAKER) (test 138 meq/L 136-145 bsju=599) POTASSIUM (BEAKER) (test 4.0 meq/L 3.5-5.1 dvym=398) CHLORIDE (BEAKER) (test 103 meq/L 98-107 gaht=573) CO2 (BEAKER) (test 29 meq/L 22-29 hqbi=225) BLOOD UREA NITROGEN 15 mg/dL 7-21 (BEAKER) (test fuoe=135) CREATININE (BEAKER) (test 1.15 mg/dL 0.57-1.25 vrqg=638) GLUCOSE RANDOM (BEAKER) 117 mg/dL 70-105 (test mbtr=234) CALCIUM (BEAKER) (test 9.0 mg/dL 8.4-10.2 qdfj=784) EGFR (BEAKER) (test mL/min/1.73 sq m INSUFFICIENT CLINICAL DATA fixd=3732) TO CALCULATE ESTIMATED GFR. [id number] 19:24:00 Test Item Value Reference Range Comments LIPASE (BEAKER) (test wobq=417) 229 U/L 8-78 HEPATIC FUNCTION [id number] 19:24:00 Test Item Value Reference Range Comments TOTAL PROTEIN (BEAKER) (test fcsm=581) 6.0 gm/dL 6.0-8.3 ALBUMIN (BEAKER) (test uxtc=6223) 3.7 g/dL 3.5-5.0 BILIRUBIN TOTAL (BEAKER) (test xjvy=118) 0.5 mg/dL 0.2-1.2 BILIRUBIN DIRECT (BEAKER) (test ovnb=666) 0.3 mg/dL 0.1-0.5 ALKALINE PHOSPHATASE (BEAKER) (test omry=049) 78 U/L 40-150 AST (SGOT) (BEAKER) (test ehak=917) 32 U/L 5-34 ALT (SGPT) (BEAKER) (test zmyl=067) 6 U/L 6-55 CBC W/PLT COUNT & AUTO [id number] 19:05:00 Test Item Value Reference Range Comments WHITE BLOOD CELL COUNT (BEAKER) (test pbvt=041) 4.6 K/ L 3.5-10.5 RED BLOOD CELL COUNT (BEAKER) (test alkc=240) 3.38 M/ L 4.63-6.08 HEMOGLOBIN (BEAKER) (test qjae=473) 10.8 GM/DL 13.7-17.5 HEMATOCRIT (BEAKER) (test gusd=904) 33.4 % 40.1-51.0 MEAN CORPUSCULAR VOLUME (BEAKER) (test gvei=463) 98.8 fL 79.0-92.2 MEAN CORPUSCULAR HEMOGLOBIN (BEAKER) (test 32.0 pg 25.7-32.2 twme=360) MEAN CORPUSCULAR HEMOGLOBIN CONC (BEAKER) (test 32.3 GM/DL 32.3-36.5 qrfe=186) RED CELL DISTRIBUTION WIDTH (BEAKER) (test 12.8 % 11.6-14.4 wbbh=613) PLATELET COUNT (BEAKER) (test zvfh=241) 160 K/CU MM 150-450 MEAN PLATELET VOLUME (BEAKER) (test muom=007) 9.2 fL 9.4-12.4 NUCLEATED RED BLOOD CELLS (BEAKER) (test 0 /100 WBC 0-0 ypcm=090) NEUTROPHILS RELATIVE PERCENT (BEAKER) (test 52 % rpqu=864) LYMPHOCYTES RELATIVE PERCENT (BEAKER) (test 35 % oxkh=902) MONOCYTES RELATIVE PERCENT (BEAKER) (test 11 % azsp=419) EOSINOPHILS RELATIVE PERCENT (BEAKER) (test 3 % vcch=056) BASOPHILS RELATIVE PERCENT (BEAKER) (test 0 % tdxx=810) NEUTROPHILS ABSOLUTE COUNT (BEAKER) (test 2.34 K/ L 1.78-5.38 zfvm=767) LYMPHOCYTES ABSOLUTE COUNT (BEAKER) (test 1.57 K/ L 1.32-3.57 xegk=284) MONOCYTES ABSOLUTE COUNT (BEAKER) (test 0.48 K/ L 0.30-0.82 pwoq=777) EOSINOPHILS ABSOLUTE COUNT (BEAKER) (test 0.14 K/ L 0.04-0.54 zecl=414) BASOPHILS ABSOLUTE COUNT (BEAKER) (test 0.02 K/ L 0.01-0.08 bdpc=215) IMMATURE GRANULOCYTES-RELATIVE PERCENT (BEAKER) 0 % 0-1 (test hxyo=6918)
[2019-06-07 15:38] LABS: Absolute Lymphocytes (CBC) 0.9 K/uL (0.7-4.9); Basophils % 0.8 % (0-1.3); Hematocrit 36.1 % (39.6-49.0); MPV 9.3 fL (7.6-11.3)
[2019-06-07 15:40] LABS: Protime INR 0.98
--- NOTE | 2019-06-07 15:42 | RAD REPORT ---
EXAM DESCRIPTION: RAD - Chest Single View - 06/07/2019 3:36 pm CLINICAL HISTORY: found down Chest pain. COMPARISON: Chest Single View dated 03/31/2019; Chest Single View dated 09/24/2018; Chest Single View dated 07/14/2018; Chest Single View dated 06/24/2018 FINDINGS: Portable technique limits examination quality. The lungs are grossly clear. The heart is upper limit of normal in size. No displaced fractures. IMPRESSION: No acute intrathoracic process suspected.
[2019-06-07 15:46] LABS: Urine Bacteria <20 /HPF (NONE SEEN); Urine Culture Reflex Order NOT NEEDED; Urine Mucus LIGHT /HPF (NONE SEEN)
[2019-06-07 15:54] LABS: Urine Blood 1+ (NEG); Urine Glucose NEGATIVE (NEG); Urine Protein TRACE (NEG); Urine Specific Gravity 1.025 (1.005-1.030)
--- NOTE | 2019-06-07 16:01 | RAD REPORT ---
EXAM DESCRIPTION: CT - Head C Spine Cap Wo Con - 06/07/2019 3:44 pm CLINICAL HISTORY: Trauma, head and neck injury. Chest, abdomen and pelvis pain. weak, found down COMPARISON: No comparisons TECHNIQUE: CT head without contrast. CT cervical spine without contrast with coronal and sagittal reformatted images. CT chest, abdomen and pelvis without contrast with coronal and sagittal reformatted images of the spi ne. All CT scans are performed using dose optimization technique as appropriate and may include automated exposure control or mA/KV adjustment according to patient size. FINDINGS: CT HEAD WITHOUT CONTRAST: No intracranial hemorrhage, hydrocephalus or extra-axial fluid collection. Mild generalized brain atr ophy is present with mild periventricular and deep white matter chronic microvascular ischemic change s. No areas of brain edema or midline shift. Mild bilateral mastoid effusions. The paranasal sinuses are clear. The calvarium is intact. CT CERVICAL SPINE WITHOUT CONTRAST: No fracture or subluxation. Mild to moderate lower cervical degenerative changes. The prevertebral so ft tissues are normal in thickness. CT CHEST, ABDOMEN, PELVIS WITHOUT CONTRAST: NOTE: Lack of contrast is a significant limitation in the assessment of trauma related findings. Spec ifically, solid organ, vascular and bowel evaluation is significantly limited. 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 No evidence of intra-abdominal visceral injury, free fluid or free air is seen within the above detai led limitations. Small calculus is present right kidney without hydronephrosis. Large right-sided inguinal hernia containing bowel is present. No acute fracture is identified. Multilevel degenerative changes throughout the axial skeleton. IMPRESSION: Negative for acute traumatic findings within the above detailed limitations. Additional nonacute findings as detailed above.
[2019-06-07 16:07] LABS: BUN Blood Urea Nitrogen 35 mg/dL (7-18); Bicarbonate 25 mmol/L (21-32); Glucose Level 93 mg/dL (74-106); Potassium 4.8 mmol/L (3.5-5.1); Sodium Level 140 mmol/L (136-145); Troponin (Emerg Dept Use Only) < 0.02 ng/mL (0.0-0.045)
[2019-06-07 16:08] LABS: Creatine Phosphokinase 1461 U/L (39-308)
[2019-06-07] MEDS ORDERED: NA CHLORIDE 0.9% 500 ML ONE (16:10)
[2019-06-07] MEDS ORDERED: NA CHLORIDE 0.9% 1,000 ML ONE (16:28)
--- NOTE | 2019-06-07 17:03 | ER ---
Nurse's Notes [facility] Name: Sumanth Louis Age: 79 yrs Sex: Male : 1940 Arrival Date: 06/07/2019 Time: 15:14 Bed 2 Private MD: Diagnosis: Syncope and collapse;Weakness;Rhabdomyolysis Presentation: 06/07 15:15 Presenting complaint: EMS states: Pt found down on floor by family at 1400 today, when EMS arrived pt was found w/ L side of face pressed to baseboard, states that he got up in the night to urinate, stumbled and fell, unknown if pt lost consciousness pt hx of Parkinsons and dementia, normally oriented to person, place and situation, lives alone, last seen by family on Sat. Care prior to arrival: None. Mechanism of Injury: Fall from standing position. Trauma event details: Injury occurred in the [facility], Injury occurred: at home. 15:15 Acuity: IRINA 2 ph 15:15 Method Of Arrival: EMS: [facility] ph 15:15 Transition of care: patient was received from another setting of care (hospital). Onset ph of symptoms was June 07, 2019. Risk Assessment: Do you want to hurt yourself or someone else? Patient reports no desire to harm self or others. Initial Sepsis Screen: Does the patient meet any 2 criteria? No. Patient's initial sepsis screen is negative. Does the patient have a suspected source of infection? No. Patient's initial sepsis screen is negative. Trauma Activation: Alert Physician: ED Physician; Name: ; Notified At: ; Arrived At: Physician: General Surgeon; Name: ; Notified At: ; Arrived At: Physician: Radiology; Name: ; Notified At: ; Arrived At: Physician: Respiratory; Name: ; Notified At: ; Arrived At: Physician: Lab; Name: ; Notified At: ; Arrived At: Historical: - Allergies: 15:38 No Known Allergies; ph - Immunization history: Last tetanus immunization: unknown. - Coronavirus screen:: The patient has NOT traveled to [place], [place], or [place] in the past 14 days. The patient has NOT had contact with known/suspected case of Coronavirus?. - Family history:: not pertinent. - Social history:: Smoking status: unknown. - Hospitalizations: : No recent hospitalization is reported. - Ebola Screening: : No symptoms or risks identified at this time. Screenin:36 Abuse screen: Denies threats or abuse. Denies injuries from another. Nutritional ph screening: No deficits noted. Tuberculosis screening: No symptoms or risk factors identified. Fall Risk Fall in past 12 months (25 points). Secondary diagnosis (15 points) dementia, impaired mobility, IV access (20 points). Ambulatory Aid- None/Bed Rest/Nurse Assist (0 pts). Gait- Impaired (20 pts.). Mental Status- Overestimates/Forgets Limitations (15 pts.). Total Han Fall Scale indicates High Risk Score (45 or more points). Fall prevention measures have been instituted. Side Rails Up X 2 Placed Close to Nursing Station Frequent Obs/Assessments Occuring As available patient and family educated on Fall Prevention Program and Strategies. Primary Survey: 15:30 NO uncontrolled hemorrhage observed. A: The patient is alert. Airway: patent, No ph supplemental oxygen in use on arrival. Breathing/Chest: Respiratory pattern: regular, Respiratory effort: spontaneous, unlabored, Breath sounds: clear, bilaterally. Circulation: Pulses: palpable right radial artery, right dorsalis pedis artery, left radial artery and left dorsalis pedis artery. Skin color: pink. Circulation: Skin temperature: cool. Disability Alert. Exposure/Environment: All clothing and personal items were removed. Forensic evidence collection is not deemed to be indicated at this time. Items placed in patient belonging bag. There is no evidence of uncontrolled external bleeding. A warming method has been applied: A warm blanket has been provided to the patient. 18:38 Reassessment Airway Airway Patent Breathing/Chest Respiratory pattern Regular ph Respiratory effort Spontaneous Unlabored Circulation Color [place] Temperature Warm Dry Disability Alert. Assessment: 15:30 General: Appears in no apparent distress. uncomfortable, slender, Behavior is ph cooperative, appropriate for age, drowsy, flat, quiet. Pain: Denies pain. Neuro: Level of Consciousness is awake, alert, obeys commands, Oriented to person, place, Speech is slurred. Cardiovascular: Capillary refill < 3 seconds in bilateral fingers Patient's skin is warm and dry. Edema is 2+ to left ankle, left foot, right ankle and right foot. Respiratory: Airway is patent Respiratory effort is even, unlabored, Respiratory pattern is regular, symmetrical. GI: No signs and/or symptoms were reported involving the gastrointestinal system. Derm: Skin is fragile, is thin, Skin is pink, warm \\T\\ dry. area of redness noted to L side of forehead. Musculoskeletal: Circulation, motion, and sensation intact. Range of motion: intact in all extremities, pt w/ tremors noted, hx of Parkinson's. 17:00 Reassessment: Patient appears in no apparent distress at this time. Patient and/or ph family updated on plan of care and expected duration. Pain level reassessed. Pt asleep w/ equal and unlabored respirations, VSS, awaiting results. 17:45 Reassessment: Daughter at bedside, states, " I don't think he took his meds today." ph States that she has medication with her, ERP at bedside, approves pt taking home meds after swallow screen, daughter states, " He always has drooling and sometimes has trouble swallowing because of the Parkinsons but he takes his meds at home." Pt passed swallow screen w/ no coughing or choking noted, PO home meds given. 18:45 Reassessment: Patient appears in no apparent distress at this time. No changes from ph previously documented assessment. Patient and/or family updated on plan of care and expected duration. Pain level reassessed. 19:24 Reassessment: Attempted to call report to second floor, receiving nurse unavailable. ph 19:52 Reassessment: Patient appears in no apparent distress at this time. No changes from jd3 previously documented assessment. Patient and/or family updated on plan of care and expected duration. Pain level reassessed. report given to Nancy QUINTANILLA. Vital Signs: 15:22 BP 152 / 76; Pulse 67; Resp 18; Temp 97.8(TE); Pulse Ox 100% on R/A; ph 16:30 BP 153 / 74; Pulse 60; Resp 18; Pulse Ox 100% on R/A; ph 18:39 BP 159 / 68; Pulse 64; Resp 16; Pulse Ox 99% on R/A; ph 19:54 BP 168 / 65; Pulse 63; Resp 17 S; Pulse Ox 100% on R/A; jd3 Goodrich Coma Score: 15:22 Eye Response: spontaneous(4). Verbal Response: confused(4). Motor Response: obeys commands(6). Total: 14. 16:30 Eye Response: spontaneous(4). Verbal Response: confused(4). Motor Response: obeys ph commands(6). Total: 14. 18:39 Eye Response: spontaneous(4). Verbal Response: confused(4). Motor Response: obeys ph commands(6). Total: 14. Trauma Score (Adult): 15:22 Eye Response: spontaneous(1); Verbal Response: confused(1); Motor Response: obeys ph commands(2); Systolic BP: > 89 mm Hg(4); Respiratory Rate: 10 to 29 per min(4); Goodrich Score: 14; Trauma Score: 12 16:30 Eye Response: spontaneous(1); Verbal Response: confused(1); Motor Response: obeys ph commands(2); Systolic BP: > 89 mm Hg(4); Respiratory Rate: 10 to 29 per min(4); Terence Score: 14; Trauma Score: 12 18:39 Eye Response: spontaneous(1); Verbal Response: confused(1); Motor Response: obeys ph commands(2); Systolic BP: > 89 mm Hg(4); Respiratory Rate: 10 to 29 per min(4); Goodrich Score: 14; Trauma Score: 12 ED Course: 15:14 Patient arrived in ED. ph 15:14 Arvin Armendariz MD is Attending Physician. rn 15:22 Triage completed. ph 15:30 Thermoregulation: warm blanket given to patient. ph 15:30 Arm band placed on Patient placed in an exam room. ph 15:34 Initial lab(s) drawn, by me, sent to lab. Urine collected: clean catch specimen, clear, jp3 kb colored, X-ray(s) taken. Missed attempt(s): 20 gauge in left antecubital area. Bleeding controlled, band aid applied, catheter tip intact. Patient maintains SpO2 saturation greater than 95% on room air. 15:35 Patient has correct armband on for positive identification. Bed in low position. Call jp3 light in reach. Side rails up X 1. Side rails up X2. Warm blanket given. Verbal reassurance given. Pulse ox on. NIBP on. 15:36 Stroke CXR 1 View In Process Unspecified. EDMS 15:39 Whitley Brock, SOCORRO is Primary Nurse. ph 15:41 Head C Spine Cap Wo Con In Process Unspecified. EDMS 15:41 CT completed. Patient tolerated procedure well. Patient moved back from CT. bq 16:20 Inserted saline lock: 22 gauge in right forearm, using aseptic technique. ph 17:01 Maren Shields MD is Hospitalizing Provider. rn 18:38 No provider procedures requiring assistance completed. Patient admitted, IV remains in ph place. Administered Medications: 16:20 Drug: NS 0.9% 500 ml Route: IV; Rate: bolus; Site: right forearm; ph 16:35 Drug: NS 0.9% 1000 ml Route: IV; Rate: 100 ml/hr; Site: right antecubital; ph 19:56 Follow up: Response: No adverse reaction; IV Status: Infusion continued upon admission alan Intake: 15:22 PO: 0ml; Total: 0ml. ph 18:39 IV: 1500ml (IV Fluid); Total: 1500ml. ph Outcome: 17:02 Decision to Hospitalize by Provider. rn 19:53 Admitted to Med/surg accompanied by tech, room 208, with chart, Report called to Nancy phillips RN 19:53 Condition: stable 19:53 Instructed on the need for admit. 19:54 Patient's length of stay in the Emergency Department was greater than 2 hours. waiting alan for admissionPatient's length of stay extended due to 20:16 Patient left the ED. aa1 Signatures: Dispatcher [employer] EDMS Julieth Anderson RN RN aa1 Maggie Flores ph D, Roman, MD MD rn Hall, Patricia, RN RNavies, Jonathon, RN RN jd3 Pisarski, Jacob jp3
--- NOTE | 2019-06-07 17:03 | EDPHYS ---
Physician Documentation [facility] Name: Sumanth Louis Age: 79 yrs Sex: Male : 1940 Arrival Date: 06/07/2019 Time: 15:14 Bed 2 Private MD: ED Physician Arvin Armendariz HPI: 06/07 15:33 This 79 yrs old Male presents to ER via EMS with complaints of Fall Injury. rn 15:33 Details of fall: The patient fell from an upright position. Onset: The symptoms/episode rn began/occurred at an unknown time. Associated injuries: The patient sustained injury to the head. Severity of symptoms: At their worst the symptoms were moderate, in the emergency department the symptoms are unchanged. It is unknown whether or not the patient has had similar symptoms in the past. Per EMS reports, last seen normal 4 days ago when brought to ER for abd pain, sent home, family went to check on him today around 1400, and found him down on ground for unknown period of time, with head pushed up against baseboard. Pt denies pain. Doesn't recall what happened. Has parkinsons. Family not here. . Historical: - Allergies: 15:38 No Known Allergies; ph - Immunization history: Last tetanus immunization: unknown. - Coronavirus screen:: The patient has NOT traveled to [place], [place], or [place] in the past 14 days. The patient has NOT had contact with known/suspected case of Coronavirus?. - Family history:: not pertinent. - Social history:: Smoking status: unknown. - Hospitalizations: : No recent hospitalization is reported. - Ebola Screening: : No symptoms or risks identified at this time. ROS: 15:41 Constitutional: Negative for fever, chills, and weight loss, Neck: Negative for injury, rn pain, and swelling, Cardiovascular: Negative for chest pain, palpitations, and edema, Respiratory: Negative for shortness of breath, cough, wheezing, and pleuritic chest pain, Abdomen/GI: Negative for abdominal pain, nausea, vomiting, diarrhea, and constipation, MS/Extremity: Negative for injury and deformity, Skin: Negative for injury, rash, and discoloration, Neuro: + generalized weakness Exam: 15:41 Constitutional: This is a well developed, well nourished patient who is awake, alert, rn and in no acute distress. Sitting upright, drooling Head/Face: Normocephalic, + linear impressions and blotchy erythema on forehead and scalp, no open wounds or bleeding Eyes: Periorbital areas with no swelling, redness, or edema. ENT: dry MM, no oral trauma Neck: No midline tenderness Chest/axilla: Normal chest wall appearance and motion. Nontender with no deformity. No lesions are appreciated. Cardiovascular: Regular rate and rhythm. No pulse deficits. Respiratory: No increased work of breathing, no retractions or nasal flaring. Abdomen/GI: soft, non-tender, + right inguinal hernia without tenderness MS/ Extremity: Pulses equal, cool feet Neuro: Awake, alert, sitting upright, 4/5 strength bilateral upper ext, unable to lift proximal legs off ground, able to plantar flex both feet equally. No gross facial droop or deformity. Vital Signs: 15:22 BP 152 / 76; Pulse 67; Resp 18; Temp 97.8(TE); Pulse Ox 100% on R/A; ph 16:30 BP 153 / 74; Pulse 60; Resp 18; Pulse Ox 100% on R/A; ph 18:39 BP 159 / 68; Pulse 64; Resp 16; Pulse Ox 99% on R/A; ph 19:54 BP 168 / 65; Pulse 63; Resp 17 S; Pulse Ox 100% on R/A; jd3 Terence Coma Score: 15:22 Eye Response: spontaneous(4). Verbal Response: confused(4). Motor Response: obeys ph commands(6). Total: 14. 16:30 Eye Response: spontaneous(4). Verbal Response: confused(4). Motor Response: obeys ph commands(6). Total: 14. 18:39 Eye Response: spontaneous(4). Verbal Response: confused(4). Motor Response: obeys ph commands(6). Total: 14. Trauma Score (Adult): 15:22 Eye Response: spontaneous(1); Verbal Response: confused(1); Motor Response: obeys ph commands(2); Systolic BP: > 89 mm Hg(4); Respiratory Rate: 10 to 29 per min(4); Terence Score: 14; Trauma Score: 12 16:30 Eye Response: spontaneous(1); Verbal Response: confused(1); Motor Response: obeys ph commands(2); Systolic BP: > 89 mm Hg(4); Respiratory Rate: 10 to 29 per min(4); Terence Score: 14; Trauma Score: 12 18:39 Eye Response: spontaneous(1); Verbal Response: confused(1); Motor Response: obeys ph commands(2); Systolic BP: > 89 mm Hg(4); Respiratory Rate: 10 to 29 per min(4); Terence Score: 14; Trauma Score: 12 MDM: 15:14 Patient medically screened. rn 16:58 Differential diagnosis: closed head injury. Data reviewed: vital signs, nurses notes, government property inspector test result(s), EKG, radiologic studies, CT scan, and as a result, I will admit patient. Counseling: I had a detailed discussion with the patient and/or guardian regarding: the historical points, exam findings, and any diagnostic results supporting the discharge/admit diagnosis, lab results, radiology results, the need for further work-up and treatment in the hospital. Response to treatment: the patient's symptoms have mildly improved after treatment, and as a result, I will admit patient. Admission orders: after a detailed discussion of the patient's condition and case, the admit orders are written by me. ED course: Admitted to Dr. Shields for syncope, fall, early rhabdomyolysis, weakness. Daughter here now, states drooling not a new thing, reports has frequent syncopal episodes and when brought to hospital usually told is dehydrated and gets better with fluids. . 06/07 15:15 Order name: CPK; Complete Time: 16:14 rn 06/07 15:15 Order name: Troponin (emerg Dept Use Only); Complete Time: 16:14 rn 06/07 15:15 Order name: Basic Metabolic Panel; Complete Time: 16:14 rn 06/07 15:15 Order name: CBC with Diff; Complete Time: 17:30 rn 06/07 15:15 Order name: Protime (+inr); Complete Time: 15:56 rn 06/07 15:15 Order name: Ptt, Activated; Complete Time: 15:56 rn 06/07 15:15 Order name: Urine Microscopic Only; Complete Time: 15:56 rn 06/07 15:43 Order name: Urine Dipstick--Ancillary (enter results); Complete Time: 15:56 mo 06/07 15:54 Order name: CBC Smear Scan; Complete Time: 17:30 EDNM 06/07 17:47 Order name: CBC with Automated Diff EDNM 06/07 17:47 Order name: Comprehensive Metabolic Panel EDNM 06/07 17:47 Order name: Creatine Phosphokinase EDNM 06/07 17:47 Order name: Creatine Phosphokinase EDNM 06/07 17:47 Order name: Creatine Phosphokinase EDNM 06/07 15:15 Order name: Stroke CXR 1 View; Complete Time: 15:45 rn 06/07 15:15 Order name: EKG; Complete Time: 15:17 rn 06/07 15:15 Order name: Accucheck; Complete Time: 16:19 rn 06/07 15:15 Order name: Cardiac monitoring; Complete Time: 16:19 rn 06/07 15:39 Order name: Head C Spine Cap Wo Con; Complete Time: 16:14 EDNM 06/07 17:39 Order name: Social Service Consult EDNM 06/07 17:47 Order name: CONS Pharmacy Consult EDNM 06/07 17:47 Order name: Occupational Therapy Consult [facility] 06/07 17:47 Order name: CONS Physician Consult EDNM 06/07 17:47 Order name: Physical Therapy Consult EDNM 06/07 17:47 Order name: Heart Healthy EDNM 06/07 17:47 Order name: Creatine Phosphokinase EDNM 06/07 17:51 Order name: ERT ORTHOSTATIC V/S EDNM 06/07 15:15 Order name: EKG - Nurse/Tech; Complete Time: 16:50 rn 06/07 15:15 Order name: IV Saline Lock; Complete Time: 16:50 rn 06/07 15:15 Order name: Labs collected and sent; Complete Time: 15:40 rn 06/07 15:15 Order name: NPO; Complete Time: 15:40 rn 06/07 15:15 Order name: O2 Per Protocol; Complete Time: 15:40 rn 06/07 15:15 Order name: O2 Sat Monitoring; Complete Time: 15:40 rn 06/07 15:15 Order name: Stroke Swallow Screen; Complete Time: 15:40 rn 06/07 15:15 Order name: Urine Dipstick-Ancillary (obtain specimen); Complete Time: 15:40 rn Administered Medications: 16:20 Drug: NS 0.9% 500 ml Route: IV; Rate: bolus; Site: right forearm; ph 16:35 Drug: NS 0.9% 1000 ml Route: IV; Rate: 100 ml/hr; Site: right antecubital; ph 19:56 Follow up: Response: No adverse reaction; IV Status: Infusion continued upon admission jd3 Disposition: 06/07/19 17:02 Hospitalization ordered by Maren Shields for Inpatient Admission. Preliminary diagnosis are Syncope and collapse, Weakness, Rhabdomyolysis. - Bed requested for Telemetry/MedSurg (Inpatient). - Status is Inpatient Admission. aa1 - Condition is Stable. - Problem is new. - Symptoms have improved. Signatures: Dispatcher [employer] EDNM Poornima Quintero, STRUCTURAL STEEL TRADES WORKER-C STRUCTURAL STEEL TRADES WORKER-Ckb Julieth Anderson RN RN aa1 Arvin Armendariz MD MD rn Hall, Patricia, RN RN Merly Covarrubias RN RN Tc Gould RN jd3 Corrections: (The following items were deleted from the chart) 15:39 15:17 CT-STROKE BRAIN W/O CONTRAST+CT.RAD.BRZ ordered. EDNM EDMS 15:42 15:33 Constitutional: Negative for fever, chills, and weight loss, rn rn 16:00 15:41 Constitutional: This is a well developed, well nourished patient who is awake, rn alert, and in no acute distress. Sitting upright, drooling Head/Face: Normocephalic, + linear impressions and blotchy erythema on forehead and scalp, no open wounds or bleeding Eyes: Periorbital areas with no swelling, redness, or edema. ENT: dry MM, no oral trauma Neck: No midline tenderness Chest/axilla: Normal chest wall appearance and motion. Nontender with no deformity. No lesions are appreciated. Cardiovascular: Regular rate and rhythm. No pulse deficits. Respiratory: No increased work of breathing, no retractions or nasal flaring. Abdomen/GI: soft, non-tender MS/ Extremity: Pulses equal, cool feet Neuro: Awake, alert, sitting upright, 4/5 strength bilateral upper ext, unable to lift proximal legs off ground, able to plantar flex both feet equally. No gross facial droop or deformity. rn 19:02 17:02 Hospitalization Ordered by Maren Shields MD for Inpatient Admission. Preliminary cg diagnosis is Syncope and collapse; Weakness; Rhabdomyolysis. Bed requested for Telemetry/MedSurg (Inpatient). Status is Inpatient Admission. Condition is Stable. Problem is new. Symptoms have improved. rn 20:16 19:02 06/07/2019 17:02 Hospitalization Ordered by Maren Shields MD for Inpatient aa1 Admission. Preliminary diagnosis is Syncope and collapse; Weakness; Rhabdomyolysis. Bed requested for Telemetry/MedSurg (Inpatient). Status is Inpatient Admission. Condition is Stable. Problem is new. Symptoms have improved. cg
[2019-06-07 17:27] LABS: Platelet Estimate DECR; Urine White Blood Cell Casts OK
[2019-06-07 17:29] LABS: Blood Morphology Comment NOTED (NOT SEEN); Poikilocytosis 1+
[2019-06-07] MEDS ORDERED: MORPHINE 2 MG/ML SYR IV PRN (17:38)
[2019-06-07] MEDS ORDERED: ONDANSETRON 4 MG/2 ML VIAL IV PRN (17:38)
--- NOTE | 2019-06-07 17:38 | P.HP ---
Certification for Inpatient With expected LOS: >2 Midnights Patient will require the following post-hospital care: [facility] Practitioner: I am a practitioner with admitting privileges, knowledge of patient current condition, hospital course, and medical plan of care. Services: Services provided to patient in accordance with Admission requirements found in Title 42 Section 412.3 of the Code of Federal Regulations Patient History Date of Service: 06/07/19 Reason for admission: Fall, rhabdomyolysis History of Present Illness: 79-year-old male with past medical history of Parkinson's disease, dementia, was found by the family found on the floor this afternoon. Patient reports getting up last night to void and does not remember falling. He was noted with his face pressed to the bed board. On presentation in the ER patient is more awake and conversant although demented. He is a poor historian and only answering yes or no to questions. He is unable to recall his diagnosis or his medications. He is unable to recall more events surrounding the fall. At the time of her evaluation in the emergency room, family no longer at bedside and unable to be reached. He was noted with elevated CK of 1500 with creatinine of 1.6. No previous baseline to compare. He has been admitted for dehydration, acute renal failure, rhabdomyolysis. Patient currently lives alone was last seen by family 3 days ago. Allergies No Known Allergies Allergy (Unverified 02/04/18 17:35) Home Medications: Ascorbic Acid/Ascorbate Sodium [Vitamin C 500 mg Wafer] 500 mg PO DAILY Aspirin [Adult Aspirin] 81 mg PO DAILY 07/14/18 Atorvastatin Calcium 20 mg PO BEDTIME 07/14/18 Carbidopa/Levodopa [Carbidopa-Levo 25-250 mg Odt] 1 each PO QID 07/14/18 Cholecalciferol (Vitamin D3) [Vitamin D3] 2,000 unit PO DAILY 07/14/18 Mv-Mins/Folic/Lycopene/Ginkgo [One Daily Men's 50+ Tablet] 1 each PO DAILY 07/14 Mv-Mn/Herb 208/Beta-Sitosterol [Urinozinc Prostate Formula Tab] 2 cap PO DAILY AT SUPPER 07/14/18 Sertraline [Zoloft*] 12.5 mg PO DAILY 07/14/18 Fludrocortisone [Florinef *] 1 tab PO DAILY 09/24/18 Memantine HCl 5 mg PO BID 09/24/18 - Past Medical/Surgical History Diabetic: No -: Parkinson's -: Dementia -: Macular degeneration -: 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 He is . Daughter has medical power of state attorney. - Social History Alcohol use: No CD- Drugs: No Caffeine use: No Review of Systems is unable to be obtained Physical Examination - Physical Exam General: Alert, Oriented x2 (Patient and place), Cooperative HEENT: Atraumatic (No head trauma , only facial telangiectasis ), Normocephalic , PERRLA, Mucous membr. moist/pink Neck: Supple, 2+ carotid pulse no bruit, JVD not distended Respiratory: Clear to auscultation bilaterally, Normal air movement Cardiovascular: No edema, Regular rate/rhythm, Normal S1 S2 Gastrointestinal: Normal bowel sounds, Soft and benign, Non-distended Musculoskeletal: No swelling, No contractures Neurological: Normal tone, Sensation intact, Cranial nerves 3-12 intact, Abnormal speech (Very slow speech with mild delay in response) - Studies Laboratory Data (last 24 hrs) 06/07/19 15:15: PT 11.6, INR 0.98, APTT 19.0 L 06/07/19 15:15: WBC 4.3, Hgb 12.2 L, Hct 36.1 L, Plt Count 47 L* D 06/07/19 15:15: Sodium 140, Potassium 4.8, BUN 35 H, Creatinine 1.66 H, Glucose 93 Imagings Data: EXAM DESCRIPTION: CT - Head C Spine Cap Wo Con - 06/07/2019 3:44 pm CLINICAL HISTORY: Trauma, head and neck injury. Chest, abdomen and pelvis pain. weak, found down COMPARISON: No comparisons TECHNIQUE: CT head without contrast. CT cervical spine without contrast with coronal and sagittal reformatted images. CT chest, abdomen and pelvis without contrast with coronal and sagittal reformatted images of the spine. All CT scans are performed using dose optimization technique as appropriate and may include automated exposure control or mA/KV adjustment according to patient size. FINDINGS: CT HEAD WITHOUT CONTRAST: No intracranial hemorrhage, hydrocephalus or extra-axial fluid collection. Mild generalized brain atrophy is present with mild periventricular and deep white matter chronic microvascular ischemic changes. No areas of brain edema or midline shift. Mild bilateral mastoid effusions. The paranasal sinuses are clear. The calvarium is intact. CT CERVICAL SPINE WITHOUT CONTRAST: No fracture or subluxation. Mild to moderate lower cervical degenerative changes. The prevertebral soft tissues are normal in thickness. CT CHEST, ABDOMEN, PELVIS WITHOUT CONTRAST: NOTE: Lack of contrast is a significant limitation in the assessment of trauma related findings. Specifically, solid organ, vascular and bowel evaluation is significantly limited. 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 Assessment and Plan - Problems (Diagnosis) (1) Rhabdomyolysis Current Visit: Yes Status: Acute (2) Traumatic rhabdomyolysis Current Visit: Yes Status: Acute (3) Fall Current Visit: Yes Status: Acute (4) Acute kidney injury Current Visit: No Status: Acute (5) Parkinsons disease Onset Date: 02/05/18 Current Visit: No Status: Chronic Discharge Plan: Correction Plan to discharge in: 48 Hours - Advance Directives Does patient have a Living Will: No Does patient have a Durable POA for Healthcare: Yes Physician Review: Patient Assessed, Agree with Above Assessment and Plan Physician Review Additional Text: 1 fall-likely due to Parkinson's with Ataxia history -will consult PT and OT. 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
[2019-06-07] MEDS: NA CHLORIDE 0.9% 1,000 ML IV SCH ×2 (18:00→20:56)
[2019-06-07] MEDS: MEMANTINE HCL 10 MG TABLET PO SCH (20:56)
[2019-06-07] MEDS: HEPARIN 5000 UNIT/ML 1 ML VIAL SQ SCH (20:56)
[2019-06-07] MEDS ORDERED: FAMOTIDINE 20 MG TAB PO SCH (21:00)
[2019-06-07 22:11] VITALS: BMI 23.1
[2019-06-07 22:28] LABS: Absolute Lymphocytes (CBC) 1.5 K/uL (0.7-4.9); Basophils % 0.6 % (0-1.3); Hematocrit 35.1 % (39.6-49.0); Lymphocytes % 30.8 % (15.3-44.8); MPV 7.9 fL (7.6-11.3); RBC Red Blood Cell Count 3.72 M/uL (4.33-5.43)
[2019-06-07] MEDS: FAMOTIDINE 20 MG TAB PO SCH (22:33)
[2019-06-07 22:37] LABS: Albumin 3.6 g/dL (3.4-5.0); Bilirubin Total 0.8 mg/dL (0.2-1.0); Potassium 4.1 mmol/L (3.5-5.1); Protein, Total 6.6 g/dL (6.4-8.2)
[2019-06-08] MEDS: NA CHLORIDE 0.9% 1,000 ML IV SCH ×2 (03:12→13:27)
--- NOTE | 2019-06-08 06:15 | EKG ---
Test Date: 2019-06-07 Test Time: 16:26:57 Billet Cutter: LUDY MEASUREMENT RESULTS: Intervals: Rate: 66 AR: 140 QRSD: 76 QT: 458 QTc: 480 Clune: P: 84 AR: 140 QRS: 26 T: 33 INTERPRETIVE STATEMENTS: Normal sinus rhythm Prolonged QT Abnormal ECG Compared to ECG 03/31/2019 10:19:26 Prolonged QT interval now present Sinus bradycardia no longer present Electronically Signed On 06-08-19 06:14:34 BLOWER AND COMPRESSOR ASSEMBLER by Rex Dumont
[2019-06-08] MEDS: MEMANTINE HCL 10 MG TABLET PO SCH ×2 (08:09→21:30)
[2019-06-08] MEDS: HEPARIN 5000 UNIT/ML 1 ML VIAL SQ SCH ×2 (08:09→21:29)
[2019-06-08] MEDS: SERTRALINE HCL 50 MG TAB PO SCH (08:10)
[2019-06-08] MEDS ORDERED: ASPIRIN EC 81 MG TAB PO SCH (09:00)
--- NOTE | 2019-06-08 09:20 | EKG ---
Test Date: 2019-06-07 Test Time: 17:16:58 Quality Control Tester: LUDY MEASUREMENT RESULTS: Intervals: Rate: 64 WV: 142 QRSD: 80 QT: 480 QTc: 495 Hiram: P: 85 WV: 142 QRS: 36 T: 42 INTERPRETIVE STATEMENTS: Normal sinus rhythm Prolonged QT Abnormal ECG Compared to ECG 06/07/2019 16:26:57 No significant changes Electronically Signed On 06-08-19 09:20:06 HEEL BREASTER by Rex Dumont
[2019-06-08] MEDS ORDERED: LACTULOSE 20 GM/30 ML UCUP PO ONE (11:05)
[2019-06-08] MEDS: DOCUSATE NA 100 MG CAP PO SCH ×2 (11:23→21:30)
--- NOTE | 2019-06-08 19:16 | P.PN ---
Subjective Date of Service: 06/08/19 Chief Complaint: Fall, rhabdomyolysis Subjective: No new changes, Doing well Review of Systems General: Weakness, Malaise Eyes: Unremarkable ENT: Unremarkable Respiratory: Unremarkable Cardiovascular: Unremarkable Gastrointestinal: Unremarkable Musculoskeletal: Unremarkable Neurological: Confusion Physical Examination - Vital Signs Temperature: 98.1 F Blood Pressure: 168/68 Pulse: 61 Respirations: 17 Pulse Ox (%): 100 - Physical Exam General: Alert, In no apparent distress, Demented HEENT: Atraumatic, Normocephalic, PERRLA, Mucous membr. moist/pink, EOMI Neck: Supple, 2+ carotid pulse no bruit, JVD not distended Respiratory: Clear to auscultation bilaterally, Normal air movement Cardiovascular: No edema, Normal pulses, Regular rate/rhythm, Normal S1 S2 Gastrointestinal: Normal bowel sounds, Non-distended, No ascites Musculoskeletal: No clubbing, No swelling Neurological: Normal affect, Abnormal strength (3/5) Assessment And Plan - Plan 1 fall-likely due to Parkinson's with Ataxia history -will consult PT and OT. -will consult case management for discussion with family regarding safe discharge and SNF placement -since unclear if syncope , will place in telemetry for now , head CT negative for any intracranial event -if ortho vitals negative will consider carotid US Rhabdomyolysis-will start gentle IV fluid hydration with NS -trend CK level daily CK down 1235 - will hold statin for now Acute renal failure-likely due to ATN from rhabdo -continue with aggressive IV fluid -Cr improved to 1.3 History of Parkinson's disease with ataxia-will obtain home medication list and restart meds DVT prophylaxis-subcutaneous heparin and SCDs Advanced directive-unable to discuss given patient mentation and family not available -will leave as full code for now until discussed Discharge Plan: Shelter Plan to discharge in: 72 Hours - Code Status/Comfort Care Code Status Assessed: No Physician Review: Patient Assessed, Agree with Above Assessment and Plan Physician Review Additional Text: 1 fall-likely due to Parkinson's with Ataxia history -will consult PT and OT. 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
[2019-06-08] MEDS: MIDODRINE HCL 5 MG TABLET PO SCH (21:00)
[2019-06-08] MEDS: MIRTAZAPINE 15 MG TAB PO SCH (21:30)
[2019-06-08] MEDS: ATORVASTATIN 20 MG TAB PO SCH (21:30)
[2019-06-08] MEDS: CARBIDOPA/LEVODOPA 25/250 TAB PO SCH (21:30)
[2019-06-08] MEDS: FAMOTIDINE 20 MG TAB PO SCH (23:10)
[2019-06-09] MEDS: NA CHLORIDE 0.9% 1,000 ML IV SCH ×3 (02:13→20:00)
[2019-06-09 06:06] LABS: Absolute Lymphocytes (CBC) 1.5 K/uL (0.7-4.9); Basophils % 0.6 % (0-1.3); Hematocrit 30.5 % (39.6-49.0); Lymphocytes % 40.2 % (15.3-44.8); MPV 7.9 fL (7.6-11.3); RBC Red Blood Cell Count 3.26 M/uL (4.33-5.43)
[2019-06-09 06:23] LABS: Potassium 3.9 mmol/L (3.5-5.1)
[2019-06-09] MEDS: MIDODRINE HCL 5 MG TABLET PO SCH ×3 (09:00→21:00)
[2019-06-09] MEDS: VITAMIN D 1000 UNIT TAB PO SCH (09:24)
[2019-06-09] MEDS: MEMANTINE HCL 10 MG TABLET PO SCH ×2 (09:24→21:07)
[2019-06-09] MEDS: DOCUSATE NA 100 MG CAP PO SCH ×2 (09:25→21:08)
[2019-06-09] MEDS: ASPIRIN EC 81 MG TAB PO SCH (09:25)
[2019-06-09] MEDS: CARBIDOPA/LEVODOPA 25/250 TAB PO SCH ×4 (09:26→21:07)
[2019-06-09] MEDS: SERTRALINE HCL 50 MG TAB PO SCH (09:27)
[2019-06-09] MEDS: HEPARIN 5000 UNIT/ML 1 ML VIAL SQ SCH ×2 (09:28→21:08)
--- NOTE | 2019-06-09 10:43 | P.CNS ---
Date of Consult: 06/08/19 Consult note. HPI: 79 male pt patient who came to emergency department complain of having had a fall at home. Patient has fallen down and was discovered by family members few days after event He was evaluated in the emergency department and found to have elevated CPK of >100 and was diagnosed with rhabdomyolysis and was started on aggressive fluid rehydration. His creatinine was 1.66 on admission. He denies any use of nonsteroidal antiinflammatory drugs or over the counter medication. The rhabdomyolysis episodes was deemed traumatic. He was also on aggressive IV fluids for rhabdomyolysis and was put on bedrest. Nephrology was consulted to assist with management of TREVOR and to prevent adverse event from rhabdomyolysis. PMH: Hypertension. Hyperlipidemia Parkinson's disease PSH: Allergies: No known food or drug allergy. Social Hx Lives alone, no smoking habits, no alcohol use, no illicit drug use. Vitals: BP 156/70, pulse-67, P02-94%.. Examination: General: Condition fair. Chest: Clear to auscultation bilaterally. Cardiovascular: Regular rhythm, phos insert muscles. Musculoskeletal: Osmel and feet bilaterally. Neurologic patient is alert and oriented to time place and person. Methylprednisolone presented Labs: Creatinine 1.66. CPK> 1500. Medications. Pls see medication reconciliation list. Radiology: CT chest: IMPRESSION: Negative for acute traumatic findings within the above detailed limitations. Assessment and Plan: Rhabdomyolysis Parkinson disease Hypertension Hyperlipidemia Acute kidney injury-resolved Volume depletion. Plan: Will continue repletion with saline infusion. Will monitor kidney function closely. Next will monitor the CPK closely. We will continue monitoring of kidney function as acute kidney injury so solved We will monitor symptom complex mostly predominant Recommendations for outpatient is that patient be placed in assisted living/ [facility] facility because of concerns for possible adverse event from repeated fall events. Bo Paniagua MD. Nephrology attending.
--- NOTE | 2019-06-09 11:24 | P.PN ---
Subjective Date of Service: 06/09/19 Chief Complaint: Fall, rhabdomyolysis Review of Systems Unremarkable Physical Examination - Vital Signs Temperature: 97.4 F Blood Pressure: 167/81 Pulse: 55 Respirations: 18 Pulse Ox (%): 99 - Physical Exam General: Alert HEENT: Atraumatic, Normocephalic Neck: Supple Respiratory: Clear to auscultation bilaterally Cardiovascular: No edema Gastrointestinal: Normal bowel sounds Musculoskeletal: No clubbing Neurological: Abnormal speech (slight stuttering) Assessment And Plan - Plan He has acute kidney injury is fully resolved with creatinine that has trended less than 1 from 1.66 on admission. Rhabdomyolysisis also mostly resolved with CPK of 511. Will continue hydration with normal saline We will continue to monitor kidney function closely. Discharge Plan: [facility] - Code Status/Comfort Care Code Status: Full Code Physician Review: Patient Assessed, Agree with Above Assessment and Plan Physician Review Additional Text: 1 fall-likely due to Parkinson's with Ataxia history -will consult PT and OT. 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
--- NOTE | 2019-06-09 15:17 | P.PN ---
Subjective Date of Service: 06/09/19 Chief Complaint: Fall, rhabdomyolysis Subjective: No new changes, Improving, Doing well Review of Systems General: Weakness Eyes: Unremarkable ENT: Unremarkable Respiratory: Unremarkable Cardiovascular: Unremarkable Gastrointestinal: Unremarkable Genitourinary: Unremarkable Musculoskeletal: Unremarkable Neurological: Confusion Physical Examination - Vital Signs Temperature: 97.7 F Blood Pressure: 130/60 Pulse: 56 Respirations: 18 Pulse Ox (%): 98 - Physical Exam General: Alert, In no apparent distress, Oriented x2, Cooperative HEENT: Atraumatic, Normocephalic Neck: Supple, JVD not distended Respiratory: Clear to auscultation bilaterally, Normal air movement Cardiovascular: No edema, Normal pulses, Regular rate/rhythm Gastrointestinal: Normal bowel sounds, Soft and benign, Non-distended, No ascites, No tenderness Musculoskeletal: No clubbing, No swelling, No contractures Integumentary: No rashes, No breakdown Neurological: Normal tone, Sensation intact, Abnormal speech (slow) Assessment And Plan - Plan 1 fall -likely due to Parkinson's with Ataxia history -On PT and OT. -case management was consulted for discussion with family regarding safe discharge and SNF placement -since unclear if syncope , On telemetry for now , head CT negative for any intracranial event Rhabdomyolysis -will start gentle IV fluid hydration with NS -trend CK level daily CK down 1235->551 - will hold statin for now Acute renal failure -likely due to ATN from rhabdo -continue with aggressive IV fluid -Cr improved to 1.3->0.93 History of Parkinson's disease with ataxia-will obtain home medication list and restart meds DVT prophylaxis-subcutaneous heparin and SCDs Advanced directive-unable to discuss given patient mentation and family not available -will leave as full code for now until discussed Discharge Plan: Skilled Nursing Physician Review: Patient Assessed, Agree with Above Assessment and Plan
[2019-06-09] MEDS: HYDRALAZINE HCL 20 MG/ML VIAL IV PRN (17:46)
[2019-06-09] MEDS: ATORVASTATIN 20 MG TAB PO SCH (21:07)
[2019-06-09] MEDS: MIRTAZAPINE 15 MG TAB PO SCH (21:08)
[2019-06-09] MEDS: FAMOTIDINE 20 MG TAB PO SCH (22:32)
[2019-06-10] MEDS: HYDRALAZINE HCL 20 MG/ML VIAL IV PRN ×2 (05:29→17:00)
[2019-06-10 05:52] LABS: Absolute Lymphocytes (CBC) 1.6 K/uL (0.7-4.9); Basophils % 0.6 % (0-1.3); MPV 8.4 fL (7.6-11.3); RBC Red Blood Cell Count 3.89 M/uL (4.33-5.43)
[2019-06-10 06:04] LABS: Potassium 4.1 mmol/L (3.5-5.1)
[2019-06-10] MEDS: NA CHLORIDE 0.9% 1,000 ML IV SCH (06:39)
[2019-06-10] MEDS: VITAMIN D 1000 UNIT TAB PO SCH (08:53)
[2019-06-10] MEDS: HEPARIN 5000 UNIT/ML 1 ML VIAL SQ SCH ×2 (08:53→21:01)
[2019-06-10] MEDS: SERTRALINE HCL 50 MG TAB PO SCH (08:53)
[2019-06-10] MEDS: CARBIDOPA/LEVODOPA 25/250 TAB PO SCH ×4 (08:53→21:00)
[2019-06-10] MEDS: MEMANTINE HCL 10 MG TABLET PO SCH ×2 (08:54→21:00)
[2019-06-10] MEDS: DOCUSATE NA 100 MG CAP PO SCH ×2 (08:54→21:00)
[2019-06-10] MEDS: MIDODRINE HCL 5 MG TABLET PO SCH ×3 (08:54→20:59)
[2019-06-10] MEDS: ASPIRIN EC 81 MG TAB PO SCH (08:54)
[2019-06-10] MEDS: AMLODIPINE 5 MG TAB PO SCH (08:58)
--- NOTE | 2019-06-10 17:28 | P.PN ---
Subjective Date of Service: 06/10/19 Chief Complaint: Fall, rhabdomyolysis Subjective: No new changes, Doing well Review of Systems General: Unremarkable Eyes: Unremarkable ENT: Unremarkable Respiratory: Unremarkable Cardiovascular: Unremarkable Gastrointestinal: Unremarkable Musculoskeletal: Unremarkable Integumentary: Unremarkable Physical Examination - Vital Signs Temperature: 97 F Blood Pressure: 105/56 Pulse: 62 Respirations: 20 Pulse Ox (%): 99 - Physical Exam General: Alert, In no apparent distress, Oriented x1, Cooperative HEENT: Atraumatic, Normocephalic Neck: Supple, 2+ carotid pulse no bruit, JVD not distended Respiratory: Clear to auscultation bilaterally, Normal air movement Cardiovascular: No edema, Normal pulses, Regular rate/rhythm Gastrointestinal: Normal bowel sounds, Hypoactive Musculoskeletal: No clubbing, No swelling Integumentary: No rashes, No breakdown Neurological: Normal tone, Normal reflexes 2+, Abnormal gait Assessment And Plan - Plan 1 fall -likely due to Parkinson's with Ataxia history -On PT and OT. -case management was consulted for discussion with family regarding safe discharge and SNF placement -since unclear if syncope , On telemetry for now , head CT negative for any intracranial event Rhabdomyolysis -will start gentle IV fluid hydration with NS -trend CK level daily CK down 1235->551->394 - will hold statin for now Acute renal failure -likely due to ATN from rhabdo -s/p aggressive IV fluid -Cr improved to 1.3->0.93 History of Parkinson's disease with ataxia-will obtain home medication list and restart meds DVT prophylaxis-subcutaneous heparin and SCDs Advanced directive-unable to discuss given patient mentation and family not available -will leave as full code for now until discussed Discharge Plan: Senior Living Physician Review: Patient Assessed, Agree with Above Assessment and Plan
[2019-06-10] MEDS: MIRTAZAPINE 15 MG TAB PO SCH (21:00)
[2019-06-10] MEDS: ATORVASTATIN 20 MG TAB PO SCH (21:00)
[2019-06-10] MEDS: FAMOTIDINE 20 MG TAB PO SCH (23:08)
[2019-06-11] MEDS: SERTRALINE HCL 50 MG TAB PO SCH (08:30)
[2019-06-11] MEDS: ASPIRIN EC 81 MG TAB PO SCH (08:30)
[2019-06-11] MEDS: VITAMIN D 1000 UNIT TAB PO SCH (08:30)
[2019-06-11] MEDS: MEMANTINE HCL 10 MG TABLET PO SCH ×2 (08:31→20:44)
[2019-06-11] MEDS: CARBIDOPA/LEVODOPA 25/250 TAB PO SCH ×4 (08:33→20:33)
[2019-06-11] MEDS: AMLODIPINE 5 MG TAB PO SCH (08:33)
[2019-06-11] MEDS: HEPARIN 5000 UNIT/ML 1 ML VIAL SQ SCH ×2 (08:33→20:33)
[2019-06-11] MEDS: MIDODRINE HCL 5 MG TABLET PO SCH ×3 (08:33→20:31)
[2019-06-11] MEDS: DOCUSATE NA 100 MG CAP PO SCH ×2 (08:33→20:30)
--- NOTE | 2019-06-11 13:21 | P.PN ---
Subjective Date of Service: 06/11/19 Chief Complaint: Fall, rhabdomyolysis Subjective: No new changes Review of Systems General: Weakness, Malaise Eyes: Unremarkable Respiratory: Unremarkable Cardiovascular: Unremarkable Gastrointestinal: Unremarkable Musculoskeletal: Other (can stand up with assistance) Integumentary: Unremarkable Neurological: Change in Speech Physical Examination - Vital Signs Temperature: 97.4 F Blood Pressure: 136/67 Pulse: 77 Respirations: 20 Pulse Ox (%): 97 - Physical Exam General: Alert, Oriented x1, Cooperative HEENT: Atraumatic, Normocephalic, PERRLA Neck: Supple, 2+ carotid pulse no bruit, JVD not distended Respiratory: Clear to auscultation bilaterally, Normal air movement Cardiovascular: No edema, Normal pulses, Regular rate/rhythm, Normal S1 S2 Gastrointestinal: Normal bowel sounds, Hypoactive Musculoskeletal: No clubbing, No swelling, No contractures, No erythema Integumentary: No rashes, No breakdown Neurological: Abnormal gait (need assistance ), Abnormal speech (slow), Abnormal strength (3/5), Dementia Assessment And Plan - Plan 06/11/19: Pt remains very weak. His speech is very slow due to Parkinson's disease. He has been living by himself. It is not safe to go home. I waiting for authorization from his insurance company for placement. He is stable. 1 fall -likely due to Parkinson's with Ataxia history -On PT and OT. -case management was consulted for discussion with family regarding safe discharge and SNF placement -since unclear if syncope , On telemetry for now , head CT negative for any intracranial event Rhabdomyolysis -will start gentle IV fluid hydration with NS -trend CK level daily CK down 1235->551->394 - will hold statin for now Acute renal failure -likely due to ATN from rhabdo -s/p aggressive IV fluid -Cr improved to 1.3->0.93 History of Parkinson's disease with ataxia-will obtain home medication list and restart meds DVT prophylaxis-subcutaneous heparin and SCDs Advanced directive-unable to discuss given patient mentation and family not available -will leave as full code for now until discussed Discharge Plan: [facility] Plan to discharge in: 48 Hours - Code Status/Comfort Care Code Status Assessed: Yes Code Status: Full Code Physician Review: Patient Assessed, Agree with Above Assessment and Plan Time Spent Managing PTS Care (In Minutes): 25
[2019-06-11] MEDS ORDERED: ACETAMIN/CAFFEINE/BUTALB TAB PO PRN (15:32)
[2019-06-11] MEDS: MIRTAZAPINE 15 MG TAB PO SCH (20:31)
[2019-06-11] MEDS: ATORVASTATIN 20 MG TAB PO SCH (20:32)
[2019-06-11] MEDS: FAMOTIDINE 20 MG TAB PO SCH (22:44)
[2019-06-12] MEDS: MIDODRINE HCL 5 MG TABLET PO SCH ×3 (09:00→20:24)
[2019-06-12] MEDS: AMLODIPINE 5 MG TAB PO SCH (09:07)
[2019-06-12] MEDS: VITAMIN D 1000 UNIT TAB PO SCH (09:07)
[2019-06-12] MEDS: SERTRALINE HCL 50 MG TAB PO SCH (09:13)
[2019-06-12] MEDS: ASPIRIN EC 81 MG TAB PO SCH (09:13)
[2019-06-12] MEDS: DOCUSATE NA 100 MG CAP PO SCH ×2 (09:13→20:26)
[2019-06-12] MEDS: MEMANTINE HCL 10 MG TABLET PO SCH ×2 (09:13→20:26)
[2019-06-12] MEDS: HEPARIN 5000 UNIT/ML 1 ML VIAL SQ SCH ×2 (09:14→20:27)
[2019-06-12] MEDS: CARBIDOPA/LEVODOPA 25/250 TAB PO SCH ×4 (09:14→20:26)
--- NOTE | 2019-06-12 14:46 | P.PN ---
Subjective Date of Service: 06/12/19 Chief Complaint: Fall, rhabdomyolysis Subjective: No new changes, Demented Review of Systems General: Weakness, Malaise, Other (almost nonverbal) Eyes: Unremarkable ENT: Unremarkable Respiratory: Unremarkable Cardiovascular: Unremarkable Gastrointestinal: Unremarkable Genitourinary: Unremarkable Musculoskeletal: Unremarkable Physical Examination - Vital Signs Temperature: 97.7 F Blood Pressure: 100/55 Pulse: 72 Respirations: 17 Pulse Ox (%): 95 - Physical Exam General: Oriented x1, Cooperative, Other (demented) HEENT: Atraumatic, Normocephalic, PERRLA Neck: Supple, 2+ carotid pulse no bruit, JVD not distended Respiratory: Clear to auscultation bilaterally, Normal air movement Cardiovascular: No edema, Normal pulses, Regular rate/rhythm, Normal S1 S2, Abnormal S3 Musculoskeletal: No clubbing, No swelling Integumentary: No rashes, No breakdown Neurological: Cranial nerves 3-12 intact, Abnormal gait, Abnormal speech, Abnormal strength External genitalia: No edema, No lesions Assessment And Plan - Plan 06/11/19: Pt remains very weak. His speech is very slow due to Parkinson's disease. He has been living by himself. It is not safe to go home. I waiting for authorization from his insurance company for placement. He is stable. 06/12/19: I did [id number] review with his insurance biomedical scientist for inpatient permission. He call us after patient had been admitted for 5 days. This patient presented for fall, rhabdomyolysis, dehydrationa and TREVOR. He is barely ambulatory and had been living by himself. It is very frustrating that his insurance does not approve admission and the authorization for SNF is still pending. There is no doubt that the patient cannot live by himself. CM and SW have been working on the case. Pending placement. 1 fall -likely due to Parkinson's with Ataxia history -On PT and OT. -case management was consulted for discussion with family regarding safe discharge and SNF placement -since unclear if syncope , On telemetry for now , head CT negative for any intracranial event Rhabdomyolysis -S/P gentle IV fluid hydration with NS -CK has been trending down 1235->551->394 - will hold statin for now Dehydration -S/P hydration. Acute renal failure -likely due to ATN from rhabdo -s/p aggressive IV fluid -Cr improved to 1.3->0.93 Generalized weakness -barely walk. Need [facility] History of Parkinson's disease with ataxia-will obtain home medication list and restart meds Dementia -I believe this patient is suffering from dementia and needs placement. DVT prophylaxis-subcutaneous heparin and SCDs Advanced directive-unable to discuss given patient mentation and family not available -will leave as full code for now until discussed Discharge Plan: [facility] Plan to discharge in: Unknown Physician Review: Patient Assessed, Agree with Above Assessment and Plan
[2019-06-12] MEDS: MIRTAZAPINE 15 MG TAB PO SCH (20:26)
[2019-06-12] MEDS: ATORVASTATIN 20 MG TAB PO SCH (20:26)
[2019-06-12] MEDS: FAMOTIDINE 20 MG TAB PO SCH (22:03)
[2019-06-13] MEDS: MEMANTINE HCL 10 MG TABLET PO SCH ×2 (08:28→20:17)
[2019-06-13] MEDS: VITAMIN D 1000 UNIT TAB PO SCH (08:28)
[2019-06-13] MEDS: CARBIDOPA/LEVODOPA 25/250 TAB PO SCH ×4 (08:28→20:17)
[2019-06-13] MEDS: ASPIRIN EC 81 MG TAB PO SCH (08:28)
[2019-06-13] MEDS: SERTRALINE HCL 50 MG TAB PO SCH (08:29)
[2019-06-13] MEDS: MIDODRINE HCL 5 MG TABLET PO SCH ×3 (08:30→20:18)
[2019-06-13] MEDS: DOCUSATE NA 100 MG CAP PO SCH ×2 (08:31→20:18)
[2019-06-13] MEDS: AMLODIPINE 5 MG TAB PO SCH (08:31)
[2019-06-13] MEDS: HEPARIN 5000 UNIT/ML 1 ML VIAL SQ SCH ×2 (08:32→20:17)
[2019-06-13] MEDS ORDERED: MORPHINE 2 MG/ML SYR IV PRN (18:05)
--- NOTE | 2019-06-13 18:24 | PN ---
Subjective: Currently, patient lying in bed. He looks comfortable. He has no complaint. He is eat ing his lunch. Objective: Vital Signs: Blood pressure is 158/72, respiratory rate 18, pulse 69, temperature 97.2. General: Patient alert, oriented x1, cooperative, but not able to answer questions appropriately. HEENT: Atraumatic, normocephalic. PERRLA. Oral mucosa is moist. Neck: Supple. No JVP. No carotid bruits. Chest: Clear to auscultation. Good air entry. Heart: Regular rate and rhythm. S1, S2 normal. No gallop or murmur. Abdomen: Soft, nontender. No masses. No hepatosplenomegaly. Positive bowel sounds. Extremities: No clubbing, cyanosis, or edema. Neurologic: Deferred. Patient not able to follow commands. Assessment And Plan: 1.Fall secondary to ataxia history and Parkinson's. Continue PT/OT pending admission to [facility]. Insurance will not approve him unless he has 5 full days in the hospital. Patient on telemetry. There are no issues overnight. His head CT was negative for any intracranial event. 2.Rhabdomyolysis, on IV fluids with gentle hydration and CK continues to go down. It is currently a t 394 on June 10. I will check that tomorrow morning. 3.Dehydration, resolved. 4.Acute renal failure. Creatinine was back to normal on June 10. I will check that tomorrow mo rning. 5.Generalized weakness secondary to Parkinson's. Patient needs a retirement. 6.Dementia, at baseline. 7.Hypertension, not well controlled on Norvasc. I will increase the dose to 10 mg and start hydrala zine as needed. 8.Deep vein thrombosis prophylaxis. Patient on heparin q.12 hours. 9.Depression, on Zoloft 12.5 mg daily. 10.Discharge plan depends on insurance approving patient retirement placement. MARK/ANNIE Voice ID: [id number] Report ID: [id number]
[2019-06-13] MEDS: ATORVASTATIN 20 MG TAB PO SCH (20:18)
[2019-06-13] MEDS: MIRTAZAPINE 15 MG TAB PO SCH (20:19)
[2019-06-13] MEDS: FAMOTIDINE 20 MG TAB PO SCH (22:59)
[2019-06-14 06:04] LABS: Absolute Lymphocytes (CBC) 1.7 K/uL (0.7-4.9); Basophils % 0.5 % (0-1.3); Hematocrit 35.1 % (39.6-49.0); Lymphocytes % 43.2 % (15.3-44.8); MPV 8.2 fL (7.6-11.3); RBC Red Blood Cell Count 3.77 M/uL (4.33-5.43)
[2019-06-14 06:21] LABS: Albumin 3.2 g/dL (3.4-5.0); Bilirubin Total 0.3 mg/dL (0.2-1.0); Potassium 4.2 mmol/L (3.5-5.1); Protein, Total 6.2 g/dL (6.4-8.2)
[2019-06-14] MEDS: VITAMIN D 1000 UNIT TAB PO SCH (08:39)
[2019-06-14] MEDS: ASPIRIN EC 81 MG TAB PO SCH (08:39)
[2019-06-14] MEDS: HEPARIN 5000 UNIT/ML 1 ML VIAL SQ SCH ×2 (08:39→20:01)
[2019-06-14] MEDS: SERTRALINE HCL 50 MG TAB PO SCH (08:40)
[2019-06-14] MEDS: CARBIDOPA/LEVODOPA 25/250 TAB PO SCH ×4 (08:42→20:02)
[2019-06-14] MEDS: DOCUSATE NA 100 MG CAP PO SCH ×2 (08:43→20:01)
[2019-06-14] MEDS: MIDODRINE HCL 5 MG TABLET PO SCH (08:43)
[2019-06-14] MEDS: AMLODIPINE 10 MG TAB PO SCH (08:43)
[2019-06-14] MEDS: MEMANTINE HCL 10 MG TABLET PO SCH ×2 (08:44→20:01)
[2019-06-14 09:33] LABS: Blood Morphology Comment NOT SEEN (NOT SEEN); Platelet Estimate ADEQ
--- NOTE | 2019-06-14 16:51 | PN ---
Subjective: Currently, patient is lying on the chest, looks comfortable. He has no chest pain, no a bdominal pain, no nausea or vomiting. He seems comfortable. He has no complaint. Objective: Vital Signs: Blood pressure 171/75, respiratory rate 16, pulse 62, temperature 98.4. General: Patient is alert and oriented x1. Does not look in any distress. HEENT: Atraumatic, normocephalic. PERRLA. Oral mucosa is moist. Neck: Supple. No JVD. No carotid bruits. Chest: Clear to auscultation. Good air entry. Heart: Regular rate and rhythm. S1, S2 normal. No gallop or murmur. Abdomen: Soft, nontender. No mass. No hepatosplenomegaly. Positive bowel sounds. Extremities: No clubbing, cyanosis, or edema. No calf tenderness. Neurologic: Deferred as patient is not able to follow commands. Laboratory Data: Labs done today showed CBC within normal limits except for white blood cells 3.9, h emoglobin of 11.7, platelets normal. Chemistry within normal limits except for GFR of 63, BUN of 19, AST of 40. CK was down to 68, which is normal. Assessment/plan: 1.Fall secondary to ataxia with history of Parkinson disease. Continue patient on PT/OT, pending ad mission to a [facility] placement. Insurance will not approve the patient unless he has full 5 day s in the hospital. Head CT was done on admission, was negative for any intracranial event. 2.Rhabdomyolysis secondary to fall. CK is back to normal. We will discontinue IV fluid. It is luca n to 68 today. 3.Generalized weakness secondary to Parkinson's. Patient needs to continue PT/OT as well as [facility] placement for safety. 4.Dementia, at baseline. 5.Hypertension, still not well controlled. I increased Norvasc to 10 mg yesterday. He is on hydral azine p.r.n. May have to add other blood pressure medication. I am going to discontinue his midodri ne today as well. 6.Acute renal failure. Creatinine is at baseline at this point with some hydration. Encourage oral intake. 7.Depression. Patient is on Zoloft 12.5. 8.Discharge plan will depend on the insurance approving patient's placement at [facility]. MARK/ANNIE Voice ID: [id number] Report ID: [id number]
[2019-06-14] MEDS: ATORVASTATIN 20 MG TAB PO SCH (20:01)
[2019-06-14] MEDS: MIRTAZAPINE 15 MG TAB PO SCH (20:02)
[2019-06-14] MEDS: FAMOTIDINE 20 MG TAB PO SCH (22:50)
[2019-06-15] MEDS: CARBIDOPA/LEVODOPA 25/250 TAB PO SCH ×4 (09:28→21:30)
[2019-06-15] MEDS: SERTRALINE HCL 50 MG TAB PO SCH (09:28)
[2019-06-15] MEDS: DOCUSATE NA 100 MG CAP PO SCH ×2 (09:28→21:30)
[2019-06-15] MEDS: AMLODIPINE 10 MG TAB PO SCH (09:28)
[2019-06-15] MEDS: VITAMIN D 1000 UNIT TAB PO SCH (09:29)
[2019-06-15] MEDS: MEMANTINE HCL 10 MG TABLET PO SCH ×2 (09:29→21:30)
[2019-06-15] MEDS: ASPIRIN EC 81 MG TAB PO SCH (09:30)
[2019-06-15] MEDS: HEPARIN 5000 UNIT/ML 1 ML VIAL SQ SCH ×2 (09:30→21:31)
--- NOTE | 2019-06-15 10:18 | P.PN ---
Subjective Date of Service: 06/15/19 Chief Complaint: Fall, rhabdomyolysis Subjective: No new changes, Improving Review of Systems 10-point ROS is otherwise unremarkable Physical Examination - Vital Signs Temperature: 97.3 F Blood Pressure: 127/62 Pulse: 66 Respirations: 16 Pulse Ox (%): 94 - Physical Exam General: Alert, In no apparent distress HEENT: Atraumatic, Normocephalic Neck: Supple Respiratory: Clear to auscultation bilaterally Cardiovascular: No edema, Regular rate/rhythm Capillary refill: <2 Seconds Gastrointestinal: Soft and benign Musculoskeletal: No clubbing, No swelling Integumentary: No breakdown Neurological: Other (Alert , Difficulty in ambulation ), Abnormal gait Lymphatics: No axilla or inguinal lymphadenopathy Urinary: Other (No bladder distention) External genitalia: Deferred Rectal: Deferred Assessment & Plan - Problems (Diagnosis) (1) Fall Current Visit: Yes Status: Acute (2) Rhabdomyolysis Current Visit: Yes Status: Acute (3) 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 pending admission to a senior care placement. Insurance will not approve the patient unless he has full 5 days in the hospital. Head CT was done on admission, was negative for any intracranial event. Rhabdomyolysis secondary to fall CK normal Monitor closely Acute renal failure-likely due to ATN from rhabdo Renal parameters monitored Back to baseline Parkinson's disease with ataxia Home medications continued Help appreciated from PT DVT prophylaxis-subcutaneous heparin and SCDs Discharge Plan: Skilled Nursing Time Spent Managing Pts Care (In Minutes): 42
[2019-06-15] MEDS: MIRTAZAPINE 15 MG TAB PO SCH (21:29)
[2019-06-15] MEDS: ATORVASTATIN 20 MG TAB PO SCH (21:30)
[2019-06-15] MEDS: FAMOTIDINE 20 MG TAB PO SCH (22:18)
[2019-06-16 06:01] LABS: Absolute Lymphocytes (CBC) 1.5 K/uL (0.7-4.9); Basophils % 0.7 % (0-1.3); MPV 8.1 fL (7.6-11.3); RBC Red Blood Cell Count 3.66 M/uL (4.33-5.43)
[2019-06-16 06:12] LABS: Albumin 3.2 g/dL (3.4-5.0); Bilirubin Total 0.2 mg/dL (0.2-1.0); Potassium 4.2 mmol/L (3.5-5.1); Protein, Total 6.3 g/dL (6.4-8.2)
[2019-06-16] MEDS: HEPARIN 5000 UNIT/ML 1 ML VIAL SQ SCH (08:56)
[2019-06-16] MEDS: VITAMIN D 1000 UNIT TAB PO SCH (08:56)
[2019-06-16] MEDS: CARBIDOPA/LEVODOPA 25/250 TAB PO SCH (08:56)
[2019-06-16] MEDS: ASPIRIN EC 81 MG TAB PO SCH (08:56)
[2019-06-16] MEDS: MEMANTINE HCL 10 MG TABLET PO SCH (08:56)
[2019-06-16] MEDS: DOCUSATE NA 100 MG CAP PO SCH (08:57)
[2019-06-16] MEDS: SERTRALINE HCL 50 MG TAB PO SCH (08:57)
[2019-06-16] MEDS: AMLODIPINE 10 MG TAB PO SCH (08:57)
--- NOTE | 2019-06-16 09:20 | P.DS ---
Admission Date: 06/07/19 Discharge Date: 06/16/19 Disposition: DC HOME/HOME HEALTH CARE Discharge Condition: GOOD Reason for Admission: Fall, rhabdomyolysis - Problems (1) Fall Status: Acute (2) Rhabdomyolysis Status: Acute (3) Ataxia Onset Date: 02/05/18 Status: Chronic Brief History of Present Illness: 79-year-old male with past medical history of Parkinson's disease, dementia, was found by the family found on the floor this afternoon. Patient reports getting up last night to void and does not remember falling. He was noted with his face pressed to the bed board. On presentation in the ER patient is more awake and conversant although demented. He is a poor historian and only answering yes or no to questions. He is unable to recall his diagnosis or his medications. He is unable to recall more events surrounding the fall. At the time of her evaluation in the emergency room, family no longer at bedside and unable to be reached. He was noted with elevated CK of 1500 with creatinine of 1.6. No previous baseline to compare. He has been admitted for dehydration, acute renal failure, rhabdomyolysis. Patient currently lives alone was last seen by family 3 days ago. Hospital Course: Fall likely due to Parkinson's with Ataxia history. of the patient was admitted and was monitor closely under telemetry. Workup was negative for any acute intercranial abnormality. PT/ OT was consulted. Appreciate PT and OT. case management was consulted for admission to a [facility] placement. Insurance will not approve the patient unless he has full 5 days in the hospital. Head CT was done on admission, was negative for any intracranial event. He was also found to have Rhabdomyolysis secondary to fall, started on IV fluids, and monitored CK levels serially till CK normalised He was also found to have Acute renal failure-likely due to ATN from rhabdomyolysis . Renal parameters monitored and was Back to baseline For Parkinson's disease with ataxia, Home medications continued Help appreciated from PT Discussed with family. They want to take him home with home health. They dont want to proceed with the [facility] The patient is being discharged to home with home health and home PT The patient is being discharged home today in a stable condition with advice to follow up with PCP in 1 week and also with Neurology in 1-2 weeks Vital Signs/Physical Exam: Temp Pulse Resp BP Pulse Ox 97.7 F 60 18 137/66 97 06/16/19 08:00 06/16/19 08:57 06/16/19 08:00 06/16/19 08:57 06/16/19 08:00 General: Alert, In no apparent distress HEENT: Atraumatic, Normocephalic Neck: Supple Respiratory: Clear to auscultation bilaterally Cardiovascular: No edema, Regular rate/rhythm Capillary refill: <2 Seconds Gastrointestinal: Soft and benign Integumentary: No rashes Neurological: Abnormal gait Lymphatics: No axilla or inguinal lymphadenopathy External genitalia: Deferred Rectal: Deferred Laboratory Data at Discharge: WBC 3.7 K/uL (4.3-10.9) L 06/16/19 05:31 Hgb 11.5 g/dL (13.6-17.9) L 06/16/19 05:31 Hct 34.0 % (39.6-49.0) L 06/16/19 05:31 Plt Count 160 K/uL (152-406) 06/16/19 05:31 PT 11.6 SECONDS (9.5-12.5) 06/07/19 15:15 INR 0.98 06/07/19 15:15 APTT 19.0 SECONDS (24.3-36.9) L 06/07/19 15:15 Sodium 139 mmol/L (136-145) 06/16/19 05:31 Potassium 4.2 mmol/L (3.5-5.1) 06/16/19 05:31 BUN 23 mg/dL (7-18) H 06/16/19 05:31 Creatinine 1.11 mg/dL (0.55-1.3) 06/16/19 05:31 Glucose 86 mg/dL (74-106) 06/16/19 05:31 Total Bilirubin 0.2 mg/dL (0.2-1.0) 06/16/19 05:31 AST 56 U/L (15-37) H 06/16/19 05:31 ALT 16 U/L (12-78) 06/16/19 05:31 Alkaline Phosphatase 96 U/L (45-117) 06/16/19 05:31 Home Medications: Aspirin [Aspir-Low] 1 tab PO DAILY 06/08/19 Atorvastatin Calcium [Lipitor*] 1 tab PO BEDTIME 06/08/19 Carbidopa/Levodopa [Carbidopa-Levo 25-250 mg Odt] 1 tab PO QID 06/08/19 Cholecalciferol (Vitamin D3) [Vitamin D3] 1 tab PO DAILY 06/08/19 Midodrine HCl 2.5 mg PO TID 06/08/19 Mirtazapine [Remeron*] 15 mg PO BEDTIME 06/08/19 Mv-Mins/Folic/Lycopene/Ginkgo [One Daily Men's 50+ Tablet] 1 tab PO DAILY Amlodipine [Norvasc*] 10 mg PO DAILY #30 tab 06/16/19 Cholecalciferol (Vitamin D3) [Vitamin D 1000 Iu Tab*] 2,000 unit PO DAILY #30 tab 06/16/19 Ibuprofen [Motrin] 400 mg PO TID PRN #30 tab 06/16/19 New Medications: Amlodipine [Norvasc*] 10 mg PO DAILY #30 tab Cholecalciferol (Vitamin D3) [Vitamin D 1000 Iu Tab*] 2,000 unit PO DAILY #30 tab Ibuprofen [Motrin] 400 mg PO TID PRN #30 tab PRN Reason: Pain Scale 5-7 (Moderate) Diet: Regular Activity: Ad eleazar
[2019-06-16 09:43] VITALS: O2SAT 97
[2019-06-16 13:54] VITALS: BP 124/64; TEMP 97.2
== END 2019-06-16 12:34 | disposition home health service (06) | DRG 557 ==
LOC: ER 15:12 → ERHOLD 17:39 → 2ND 20:07
PROVIDERS: ADMIT Internal Medicine; ATTEND Internal Medicine
DX: M62.82 Rhabdomyolysis (principal); N17.0 Acute kidney failure with tubular necrosis; G20 Parkinson's disease; F02.80 Dementia in other diseases classified elsewhere, unspecified severity, without behavioral disturbance, psychotic disturbance, mood disturbance, and anxiety; H35.30 Unspecified macular degeneration; C44.309 Unspecified malignant neoplasm of skin of other parts of face; C44.202 Unspecified malignant neoplasm of skin of right ear and external auricular canal; K21.9 Gastro-esophageal reflux disease without esophagitis; E78.5 Hyperlipidemia, unspecified; I50.9 Heart failure, unspecified; I73.9 Peripheral vascular disease, unspecified; G90.9 Disorder of the autonomic nervous system, unspecified; E86.9 Volume depletion, unspecified; I10 Essential (primary) hypertension; R27.0 Ataxia, unspecified; Z91.81 History of falling
CPT/HCPCS: 36415; 70450; 71045; 71250; 72125; 80048; 80053; 81003; 81015; 82550; 84484; 85025; 85610; 85730; 93005; 96360; 96361; 97112; 97116; 97161; 97530; 99285; J0360; J1644; J7030; J7040

== ENCOUNTER 2019-09-04 20:48 | Observation (INO) | payer MEDICARE ==
--- OUTSIDE RECORDS SUMMARY | 2019-09-04 20:51 | XMS REPORT | Clinical Summary ---
:1940 Author Organization [facility] Address [address] [place] [address] Care Team Providers Name Role Phone Rafa Barnes Primary Care Provider Unavailable Allergies No Known Allergies Medications Medication Sig Dispensed Refills Start Date End Date Status aspirin 81 MG EC Take 81 mg by 0 Active tablet mouth daily. atorvastatin Take 20 mg by 0 Act milton (LIPITOR) 20 MG mouth daily. tablet carbidopa-levodopa Take 1 tablet by 0 Active (SINEMET) 25-250 mg mouth 3 (three) per tablet times daily. donepezil (ARICEPT) 5 Take 5 mg by 0 Active MG tablet mouth nightly. fluticasone (FLONASE) 1 spray by Nasal 0 Active 50 mcg/actuation route daily. nasal spray multivitamin capsule Take 1 capsule 0 Active by mouth daily. metoprolol Take 0.5 tablets 90 tablet 3 07/01/2018 07/01/2019 (LOPRESSOR) 25 MG (12.5 mg total) tablet by mouth 2 (two) times daily. pantoprazole Take 1 tablet 90 tablet 0 07/02/2018 09/30/2018 E xpired (PROTONIX) 40 MG (40 mg total) by tablet mouth daily for 90 days. Active Problems Problem Noted Date Syncope, unspecified syncope type 06/27/2018 Social History Tobacco Use Types Packs/Day Years [...] six or more drinks on one occasion? No t asked Sex Assigned at Date Recorded Not on file Job Start Date Occupation Industry Not on file Not on file Not on file Travel History Travel Start Travel End No recent travel history available. Last Filed Vital Signs Not on file Plan of Treatment Not on file Results Not on fileafter 09/03/2018 Insurance Payer Benefit Plan / Group Subscriber ID Type Phone A ddress [facility] - MEDICARE [facility]/MEDICARE COMPLETE xxxxxxxxx [facility] CARE Advance Directives Patient has advance care planning documents, and code status on file. For more information, please contact:[address] [phone] Code Status Date Activated Date Inactivated Comments Full Code 06/27/2018 10:12 PM 07/01/2018 6:29 PM This code status was determined by: Patient
--- OUTSIDE RECORDS SUMMARY | 2019-09-04 20:52 | XMS REPORT ---
:1940 Author Organization [facility] t Address [address] [place] [address] Care Team Providers Name Role Phone ZEKE Unavailable Unavailable Payers Payer Name Policy Type Policy Number Effective Date Expiration D ate Problems This patient has no known problems. Allergies, Adverse Reactions, Alerts Allergy Allergy Status Severity Reaction(s) Onset Inactive Treating C omments Name Type Date Date Clinician No Known DA Active U 2018-07 Allergies 00:00:0 0 Medications This patient has no known medications. Results Test Description Test Time Test Comments Text Results Atomic Results Result Comments TROPONIN-I 2018-07-29 09:26:00 Test Item Value Reference Range Comments TROPONIN-I (test code = TROPI) < 0.012 NG/ML 0.012-0.033 Q 6HRS. [id number] 03:54:00 Test Item Value Reference Range Comments TROPONIN-I (test code = TROPI) < 0.012 NG/ML 0.012-0.033 [id number] 21:09:00 Test Item Value Reference Range Comments TROPONIN-I (test code = TROPI) < 0.012 NG/ML 0.012-0.033 COMPREHENSIVE METABOLIC [id number] 17:26:00 Test Item Value Reference Range Comments SODIUM (test code = NA) 140 MMOL/L 137-145 POTASSIUM (test code = K) 4.4 MMOL/L 3.5-5.1 CHLORIDE (test code = CL) 104 MMOL/L 98-107 CARBON DIOXIDE (test code = 26 MMOL/L 22-30 CO2) GLUCOSE (test code = GLU) 89 MG/DL 74-106 BLOOD UREA NITROGEN (test code 21 MG/DL 9-20 = BUN) GLOMERULAR FILTRATION RATE > 60 Repor ting units: ml/min/1.73 (test code = GFR) m2 (Modified MDRD Formula)Referenc e Range: > or = 60 ml/min/1 .73 m2 CREATININE (test code = CREAT) 1.10 MG/DL 0.66-1.25 TOTAL PROTEIN (test code = 7.2 G/DL 6.2-7.6 PROT) ALBUMIN (test code = ALB) 4.3 G/DL 3.5-5.0 CALCIUM (test code = CA) 9.3 MG/DL 8.4-10.2 BILIRUBIN TOTAL (test code = 0.4 MG/DL 0.2-1.3 BILT) SGOT/AST (test code = AST) 36 UNITS/L 17-59 SGPT/ALT (test code = ALT) 23 UNITS/L 21-72 ALKALINE PHOSPHATASE (test 86 UNITS/L 38-126 code = ALKP) [id number] 17:26:00 Test Item Value Reference Range Comments PHOSPHOROUS (test code = PHOS) 3.4 MG/DL 2.5-4.5 [id number] 17:26:00 Test Item Value Reference Range Comments MAGNESIUM (test code = MAG) 2.3 MG/DL 1.6-2.3 TROPONIN I [id number] 17:09:00 Test Item Value Reference Range Comments TROPONIN I RAPID (test code = TROPIRAP) 0.01 NG/ML 0.00-0.0 5 CBC W/AUTO [id number] 17:09:00 Test Item Value Reference Range Comments WHITE BLOOD CELL (test code = WBC) 4.6 K/MM3 3.8-9.8 RED BLOOD CELL (test code = RBC) 3.75 M/MM3 3.95-5.67 HEMOGLOBIN (test code = HGB) 11.8 G/DL 12.4-16.7 HEMATOCRIT (test code = HCT) 36.0 % 35.9-49.5 MEAN CELL VOLUME (test code = MCV) 96 fL 81.7-96.1 MEAN CELL HGB (test code = MCH) 31.5 pg 27.6-33.2 MEAN CELL HGB CONCETRATION (test code = MCHC) 32.8 % 32 .9-35.5 RED CELL DISTRIBUTION WIDTH (test code = RDW) 12.8 % 12 .1-15.2 PLATELET COUNT (test code = PLT) 166 K/MM3 129-368 MEAN PLATELET VOLUME (test code = MPV) 9.5 fl 7.4-10.4 NEUTROPHIL % (test code = NT%) 54.9 % 43-75 IMMATURE GRANULOCYTE % (test code = IG%) 0.2 % 0.0-2.0 LYMPHOCYTE % (test code = LY%) 34.7 % 14-44 MONOCYTE % (test code = MO%) 8.7 % 4-13 EOSINOPHIL % (test code = EO%) 1.1 % 0-6 BASOPHIL % (test code = BA%) 0.4 % 0-2 NUCLEATED RBC % (test code = NRBC%) 0.0 % 0-1.0 NEUTROPHIL # (test code = NT#) 2.51 K/mm3 2.0-7.6 IMMATURE GRANULOCYTE # (test code = IG#) 0.01 x10 3/uL 0-0.03 LYMPHOCYTE # (test code = LY#) 1.59 K/mm3 1.0-3.8 MONOCYTE # (test code = MO#) 0.40 K/mm3 0.1-0.8 EOSINOPHIL # (test code = EO#) 0.05 K/mm3 0.0-0.2 BASOPHIL # (test code = BA#) 0.02 K/mm3 0.0-0.2 NUCLEATED RBC # (test code = NRBC#) 0.00 K/mm3 0.0-0.1 - XR CHEST [id number] 16:56:00 Patient Name: CARINA SAMANIEGO Unit No: [id number] EXAMS: CPT CODE: [id number] XR CHEST 1V 12913 EXAMINATION: - XR CHEST 1V. LOCATION: B2. HISTORY: Chest Pain. COMPARISON: None. TECHNIQUE: Single AP view of the chest was obtained. FINDINGS: The heart is normal in size. Calcifications are seen atthe aortic arch. The lungs are clear. No acute osseous abnormality is identified. IMPRESSION: No acute cardiopulmonary abnormality. at 1656 Reported and signed by: Isabella Lim MD CC: Vic Humphries MD Technologist: Carolina Sherman, RT(R) Transcrpt Date/Tm/Trnsp: 07/28/2018 (367) CassPR7 Orig Print D/T: S: 07/28/2018 ([id number]) [facility] NAME: CARINA SAMAN[address] PHYS: [place] [address] : 1940 AGE: 78 SEX: M LOC: Andrea.ERS PHONE #: [phone] EXAM DATE: 07/28/2018 STATUS: PRE ER FAX #: [phone] RADIOLOGY NO: PAGE 1 Signed ReportBLOOD [id number] 11:02:00 Test Item Value Reference Range Comments CULTURE (BEAKER) (test code = 1095) No growth in 5 days BLOOD [id number] 11:02:00 Test Item Value Reference Range Comments CULTURE (BEAKER) (test code = 1095) No growth in 5 days COMPREHENSIVE METABOLIC [id number] 13:41:00 Test Item Value Reference Range Comments TOTAL PROTEIN (BEAKER) 6.3 gm/dL 6.0-8.3 (test code = 770) ALBUMIN (BEAKER) (test 3.7 g/dL 3.5-5.0 code = 1145) ALKALINE PHOSPHATASE 86 U/L 40-150 (BEAKER) (test code = 346) BILIRUBIN TOTAL (BEAKER) 0.4 mg/dL 0.2-1.2 (test code = 377) SODIUM (BEAKER) (test code 139 meq/L 136-145 = 381) POTASSIUM (BEAKER) (test 4.1 meq/L 3.5-5.1 code = 379) CHLORIDE (BEAKER) (test 104 meq/L 98-107 code = 382) CO2 (BEAKER) (test code = 27 meq/L 22-29 355) BLOOD UREA NITROGEN 9 mg/dL 7-21 (BEAKER) (test code = 354) CREATININE (BEAKER) (test 1.06 mg/dL 0.57-1.25 code = 358) GLUCOSE RANDOM (BEAKER) 104 mg/dL 70-105 (test code = 652) CALCIUM (BEAKER) (test 9.1 mg/dL 8.4-10.2 code = 697) AST (SGOT) (BEAKER) (test 19 U/L 5-34 code = 353) ALT (SGPT) (BEAKER) (test < U/L 6-55 code = 347) EGFR (BEAKER) (test code = 67 mL/min/1.73 sq m E STIMATED GFR IS NOT 1092) ACCURATE CREA TININE CLEARANCE IN PRE DICTING GLOMERULAR FILTR ATION RATE. ESTIMATED GFR IS NOT APPLICABLE F OR DIALYSIS PATIENT S. [id number] 13:24:00 Test Item Value Reference Range Comments MAGNESIUM (BEAKER) (test code = 627) 1.9 mg/dL 1.6-2.6 [id number] 13:24:00 Test Item Value Reference Range Comments LIPASE (BEAKER) (test code = 749) 521 U/L 8-78 U/S, ABDOMINAL, [id number] 11:30:00Abdomen limited area? Add comment if clarification [...] stones.Common bile duct measures 0.3 cm, within nor mal limits. No intrahepatic biliary ductal dilatation. PANCREAS: [...] Benjamin Verified Date/Time: 07/01/2018 11:30:04 Reading Location: [address] Ultrasound Reading Room [id number] 06:07:00 Test Item Value Reference Range Comments MAGNESIUM (BEAKER) (test code = 627) 2.1 mg/dL 1.6-2.6 BASIC METABOLIC [id number] 06:07:00 Test Item Value Reference Range Comments SODIUM (BEAKER) (test 138 meq/L 136-145 code = 381) POTASSIUM (BEAKER) (test 4.2 meq/L 3.5-5.1 code = 379) CHLORIDE (BEAKER) (test 107 meq/L 98-107 code = 382) CO2 (BEAKER) (test code = 25 meq/L 22-29 355) BLOOD UREA NITROGEN 9 mg/dL 7-21 (BEAKER) (test code = 354) CREATININE (BEAKER) (test 0.95 mg/dL 0.57-1.25 code = 358) GLUCOSE RANDOM (BEAKER) 94 mg/dL 70-105 (test code = 652) CALCIUM (BEAKER) (test 8.6 mg/dL 8.4-10.2 code = 697) EGFR (BEAKER) (test code 76 mL/min/1.73 sq m EST IMATED GFR IS NOT = 1092) ACCURATE CREA TININE CLEARANCE IN PRE DICTING GLOMERULAR FILTR ATION RATE. ESTIMATED GFR IS NOT APPLICABLE F OR DIALYSIS PATIENT S. CBC W/PLT COUNT & AUTO [id number] 06:04:00 Test Item Value Reference Range Comments WHITE BLOOD CELL COUNT (BEAKER) (test code = 5.3 K/ L 3.5 -10.5 775) RED BLOOD CELL COUNT (BEAKER) (test code = 761) 3.16 M/ L 4.63-6.08 HEMOGLOBIN (BEAKER) (test code = 410) 10.0 GM/DL 13.7-17.5 HEMATOCRIT (BEAKER) (test code = 411) 31.4 % 40.1-51.0 MEAN CORPUSCULAR VOLUME (BEAKER) (test code = 99.4 fL 79 .0-92.2 753) MEAN CORPUSCULAR HEMOGLOBIN (BEAKER) (test code 31.6 pg 25.7-32.2 = 751) MEAN CORPUSCULAR HEMOGLOBIN CONC (BEAKER) (test 31.8 GM/DL 32.3-36.5 code = 752) RED CELL DISTRIBUTION WIDTH (BEAKER) (test code 12.6 % 11.6-14.4 = 412) PLATELET COUNT (BEAKER) (test code = 756) 148 K/CU MM 150-45 0 MEAN PLATELET VOLUME (BEAKER) (test code = 754) 9.8 fL 9.4-12.4 NUCLEATED RED BLOOD CELLS (BEAKER) (test code = 0 /100 WBC 0-0 413) NEUTROPHILS RELATIVE PERCENT (BEAKER) (test code 50 % = 429) LYMPHOCYTES RELATIVE PERCENT (BEAKER) (test code 34 % = 430) MONOCYTES RELATIVE PERCENT (BEAKER) (test code = 12 % 431) EOSINOPHILS RELATIVE PERCENT (BEAKER) (test code 4 % = 432) BASOPHILS RELATIVE PERCENT (BEAKER) (test code = 1 % 437) NEUTROPHILS ABSOLUTE COUNT (BEAKER) (test code = 2.60 K/ L 1.78-5.38 670) LYMPHOCYTES ABSOLUTE COUNT (BEAKER) (test code = 1.76 K/ L 1.32-3.57 414) MONOCYTES ABSOLUTE COUNT (BEAKER) (test code = 0.65 K/ L 0 .30-0.82 415) EOSINOPHILS ABSOLUTE COUNT (BEAKER) (test code = 0.20 K/ L 0.04-0.54 416) BASOPHILS ABSOLUTE COUNT (BEAKER) (test code = 0.03 K/ L 0 .01-0.08 417) IMMATURE GRANULOCYTES-RELATIVE PERCENT (BEAKER) 0 % 0-1 (test code = 2801) [id number] 10:30:00 Test Item Value Reference Range Comments MAGNESIUM (BEAKER) (test code = 627) 1.9 mg/dL 1.6-2.6 CBC W/PLT COUNT & AUTO [id number] 07:07:00 Test Item Value Reference Range Comments WHITE BLOOD CELL COUNT (BEAKER) (test code = 4.4 K/ L 3.5 -10.5 775) RED BLOOD CELL COUNT (BEAKER) (test code = 761) 3.32 M/ L 4.63-6.08 HEMOGLOBIN (BEAKER) (test code = 410) 10.6 GM/DL 13.7-17.5 HEMATOCRIT (BEAKER) (test code = 411) 32.9 % 40.1-51.0 MEAN CORPUSCULAR VOLUME (BEAKER) (test code = 99.1 fL 79 .0-92.2 753) MEAN CORPUSCULAR HEMOGLOBIN (BEAKER) (test code 31.9 pg 25.7-32.2 = 751) MEAN CORPUSCULAR HEMOGLOBIN CONC (BEAKER) (test 32.2 GM/DL 32.3-36.5 code = 752) RED CELL DISTRIBUTION WIDTH (BEAKER) (test code 12.7 % 11.6-14.4 = 412) PLATELET COUNT (BEAKER) (test code = 756) 145 K/CU MM 150-45 0 MEAN PLATELET VOLUME (BEAKER) (test code = 754) 10.1 fL 9.4-12.4 NUCLEATED RED BLOOD CELLS (BEAKER) (test code = 0 /100 WBC 0-0 413) NEUTROPHILS RELATIVE PERCENT (BEAKER) (test code 40 % = 429) LYMPHOCYTES RELATIVE PERCENT (BEAKER) (test code 44 % = 430) MONOCYTES RELATIVE PERCENT (BEAKER) (test code = 12 % 431) EOSINOPHILS RELATIVE PERCENT (BEAKER) (test code 4 % = 432) BASOPHILS RELATIVE PERCENT (BEAKER) (test code = 1 % 437) NEUTROPHILS ABSOLUTE COUNT (BEAKER) (test code = 1.74 K/ L 1.78-5.38 670) LYMPHOCYTES ABSOLUTE COUNT (BEAKER) (test code = 1.90 K/ L 1.32-3.57 414) MONOCYTES ABSOLUTE COUNT (BEAKER) (test code = 0.54 K/ L 0 .30-0.82 415) EOSINOPHILS ABSOLUTE COUNT (BEAKER) (test code = 0.16 K/ L 0.04-0.54 416) BASOPHILS ABSOLUTE COUNT (BEAKER) (test code = 0.02 K/ L 0 .01-0.08 417) IMMATURE GRANULOCYTES-RELATIVE PERCENT (BEAKER) 0 % 0-1 (test code = 2801) BASIC METABOLIC [id number] 06:31:00 Test Item Value Reference Range Comments SODIUM (BEAKER) (test 138 meq/L 136-145 code = 381) POTASSIUM (BEAKER) (test 3.7 meq/L 3.5-5.1 code = 379) CHLORIDE (BEAKER) (test 107 meq/L 98-107 code = 382) CO2 (BEAKER) (test code = 25 meq/L 22-29 355) BLOOD UREA NITROGEN 9 mg/dL 7-21 (BEAKER) (test code = 354) CREATININE (BEAKER) (test 1.01 mg/dL 0.57-1.25 code = 358) GLUCOSE RANDOM (BEAKER) 81 mg/dL 70-105 (test code = 652) CALCIUM (BEAKER) (test 8.7 mg/dL 8.4-10.2 code = 697) EGFR (BEAKER) (test code 71 mL/min/1.73 sq m EST IMATED GFR IS NOT = 1092) ACCURATE CREA TININE CLEARANCE IN PRE DICTING GLOMERULAR FILTR ATION RATE. ESTIMATED GFR IS NOT APPLICABLE F OR DIALYSIS PATIENT S. BASIC METABOLIC [id number] 06:27:00 Test Item Value Reference Range Comments SODIUM (BEAKER) (test 139 meq/L 136-145 code = 381) POTASSIUM (BEAKER) (test 4.1 meq/L 3.5-5.1 code = 379) CHLORIDE (BEAKER) (test 106 meq/L 98-107 code = 382) CO2 (BEAKER) (test code = 26 meq/L 22-29 355) BLOOD UREA NITROGEN 10 mg/dL 7-21 (BEAKER) (test code = 354) CREATININE (BEAKER) (test 0.98 mg/dL 0.57-1.25 code = 358) GLUCOSE RANDOM (BEAKER) 78 mg/dL 70-105 (test code = 652) CALCIUM (BEAKER) (test 9.5 mg/dL 8.4-10.2 code = 697) EGFR (BEAKER) (test code mL/min/1.73 sq m INSUF FICIENT CLINICAL DATA = 1092) TO CALCULATE EST IMATED GFR. CBC W/PLT COUNT & AUTO [id number] 05:45:00 Test Item Value Reference Range Comments WHITE BLOOD CELL COUNT (BEAKER) (test code = 4.5 K/ L 3.5 -10.5 775) RED BLOOD CELL COUNT (BEAKER) (test code = 761) 3.71 M/ L 4.63-6.08 HEMOGLOBIN (BEAKER) (test code = 410) 11.8 GM/DL 13.7-17.5 HEMATOCRIT (BEAKER) (test code = 411) 36.0 % 40.1-51.0 MEAN CORPUSCULAR VOLUME (BEAKER) (test code = 97.0 fL 79 .0-92.2 753) MEAN CORPUSCULAR HEMOGLOBIN (BEAKER) (test code 31.8 pg 25.7-32.2 = 751) MEAN CORPUSCULAR HEMOGLOBIN CONC (BEAKER) (test 32.8 GM/DL 32.3-36.5 code = 752) RED CELL DISTRIBUTION WIDTH (BEAKER) (test code 12.6 % 11.6-14.4 = 412) PLATELET COUNT (BEAKER) (test code = 756) 170 K/CU MM 150-45 0 MEAN PLATELET VOLUME (BEAKER) (test code = 754) 9.5 fL 9.4-12.4 NUCLEATED RED BLOOD CELLS (BEAKER) (test code = 0 /100 WBC 0-0 413) NEUTROPHILS RELATIVE PERCENT (BEAKER) (test code 50 % = 429) LYMPHOCYTES RELATIVE PERCENT (BEAKER) (test code 37 % = 430) MONOCYTES RELATIVE PERCENT (BEAKER) (test code = 10 % 431) EOSINOPHILS RELATIVE PERCENT (BEAKER) (test code 3 % = 432) BASOPHILS RELATIVE PERCENT (BEAKER) (test code = 0 % 437) NEUTROPHILS ABSOLUTE COUNT (BEAKER) (test code = 2.23 K/ L 1.78-5.38 670) LYMPHOCYTES ABSOLUTE COUNT (BEAKER) (test code = 1.67 K/ L 1.32-3.57 414) MONOCYTES ABSOLUTE COUNT (BEAKER) (test code = 0.44 K/ L 0 .30-0.82 415) EOSINOPHILS ABSOLUTE COUNT (BEAKER) (test code = 0.15 K/ L 0.04-0.54 416) BASOPHILS ABSOLUTE COUNT (BEAKER) (test code = 0.02 K/ L 0 .01-0.08 417) IMMATURE GRANULOCYTES-RELATIVE PERCENT (BEAKER) 0 % 0-1 (test code = 2801) CT, BRAIN, WITHOUT [id number] 23:42:00FINAL REPORT CT, BRAIN, WITHOUT CONTRAST CLINICAL [...] MDReport Verified Date/Time: 06/27/2018 23:42:40 Reading Location: [address] Neuro Reading Room URINALYSIS W/ REFLEX URINE [id number] 21:57:00 Test Item Value Reference Range Comments COLOR (BEAKER) (test code = 470) Colorless CLARITY (BEAKER) (test code = 469) Clear SPECIFIC GRAVITY UA (BEAKER) (test code = 468) 1.001 1 .001-1.035 PH UA (BEAKER) (test code = 467) 7.5 5.0-8.0 PROTEIN UA (BEAKER) (test code = 464) Negative Negative GLUCOSE UA (BEAKER) (test code = 365) Negative Negative KETONES UA (BEAKER) (test code = 371) Negative Negative BILIRUBIN UA (BEAKER) (test code = 462) Negative Negative BLOOD UA (BEAKER) (test code = 461) Trace Negative NITRITE UA (BEAKER) (test code = 465) Negative Negative LEUKOCYTE ESTERASE UA (BEAKER) (test code = 466) Negative Negative UROBILINOGEN UA (BEAKER) (test code = 463) 0.2 mg/dL 0.2-1 .0 RBC UA (BEAKER) (test code = 519) 1 /HPF WBC UA (BEAKER) (test code = 520) < /HPF SOURCE(BEAKER) (test code = 2795) RAD, CHEST, 1 VIEW, NON [id number] 21:14:00Reason for exam:->LOSS OF CONSCIOUSNESSShould this be performed at the bedside?->YesFINAL REPORT INDICATION: LOSS OF CONSCIOUSNESS COMPARISON: None TECHNIQUE: Single frontal view of the chest. FINDINGS: Lungs and pleura: Clear lungs. No effusion.Heart and mediastinum: Normal heart size. Unremarkable mediastinal contours.Osseous structures: No acute abnormality.Other: None. IMPRESSION: No acute intrathoracic abnormality. Signed: Christina Gutierrez Verified Date/Time: 06/27/2018 21:14:39 Reading Location: [address] Neuro Reading Room [id number] 20:36:00 Test Item Value Reference Range Comments MAGNESIUM (BEAKER) (test code = 627) 2.0 mg/dL 1.6-2.6 [id number] 20:36:00 Test Item Value Reference Range Comments PHOSPHORUS (BEAKER) (test code = 604) 2.9 mg/dL 2.3-4.7 TROPONIN [id number] 19:30:00 Test Item Value Reference Range Comments TROPONIN I (BEAKER) (test code = 397) < ng/mL 0.00-0.03 Troponin I (TnI) levels [...] disease, and persistent tachyarrhythmia.B-TYPE NATRIURETIC FACTOR (BNP) 2018-06-27 19:30:00 Test Item Value Reference Range Comments B-TYPE NATRIURETIC PEPTIDE (BEAKER) (test code = 94 pg/mL 0-100 700) BASIC METABOLIC [id number] 19:28:00 Test Item Value Reference Range Comments SODIUM (BEAKER) (test 138 meq/L 136-145 code = 381) POTASSIUM (BEAKER) (test 4.0 meq/L 3.5-5.1 code = 379) CHLORIDE (BEAKER) (test 103 meq/L 98-107 code = 382) CO2 (BEAKER) (test code = 29 meq/L 22-29 355) BLOOD UREA NITROGEN 15 mg/dL 7-21 (BEAKER) (test code = 354) CREATININE (BEAKER) (test 1.15 mg/dL 0.57-1.25 code = 358) GLUCOSE RANDOM (BEAKER) 117 mg/dL 70-105 (test code = 652) CALCIUM (BEAKER) (test 9.0 mg/dL 8.4-10.2 code = 697) EGFR (BEAKER) (test code mL/min/1.73 sq m INSUF FICIENT CLINICAL DATA = 1092) TO CALCULATE EST IMATED GFR. [id number] 19:24:00 Test Item Value Reference Range Comments LIPASE (BEAKER) (test code = 749) 229 U/L 8-78 HEPATIC FUNCTION [id number] 19:24:00 Test Item Value Reference Range Comments TOTAL PROTEIN (BEAKER) (test code = 770) 6.0 gm/dL 6.0-8.3 ALBUMIN (BEAKER) (test code = 1145) 3.7 g/dL 3.5-5.0 BILIRUBIN TOTAL (BEAKER) (test code = 377) 0.5 mg/dL 0.2-1 .2 BILIRUBIN DIRECT (BEAKER) (test code = 706) 0.3 mg/dL 0.1- 0.5 ALKALINE PHOSPHATASE (BEAKER) (test code = 346) 78 U/L 40-150 AST (SGOT) (BEAKER) (test code = 353) 32 U/L 5-34 ALT (SGPT) (BEAKER) (test code = 347) 6 U/L 6-55 CBC W/PLT COUNT & AUTO [id number] 19:05:00 Test Item Value Reference Range Comments WHITE BLOOD CELL COUNT (BEAKER) (test code = 4.6 K/ L 3.5 -10.5 775) RED BLOOD CELL COUNT (BEAKER) (test code = 761) 3.38 M/ L 4.63-6.08 HEMOGLOBIN (BEAKER) (test code = 410) 10.8 GM/DL 13.7-17.5 HEMATOCRIT (BEAKER) (test code = 411) 33.4 % 40.1-51.0 MEAN CORPUSCULAR VOLUME (BEAKER) (test code = 98.8 fL 79 .0-92.2 753) MEAN CORPUSCULAR HEMOGLOBIN (BEAKER) (test code 32.0 pg 25.7-32.2 = 751) MEAN CORPUSCULAR HEMOGLOBIN CONC (BEAKER) (test 32.3 GM/DL 32.3-36.5 code = 752) RED CELL DISTRIBUTION WIDTH (BEAKER) (test code 12.8 % 11.6-14.4 = 412) PLATELET COUNT (BEAKER) (test code = 756) 160 K/CU MM 150-45 0 MEAN PLATELET VOLUME (BEAKER) (test code = 754) 9.2 fL 9.4-12.4 NUCLEATED RED BLOOD CELLS (BEAKER) (test code = 0 /100 WBC 0-0 413) NEUTROPHILS RELATIVE PERCENT (BEAKER) (test code 52 % = 429) LYMPHOCYTES RELATIVE PERCENT (BEAKER) (test code 35 % = 430) MONOCYTES RELATIVE PERCENT (BEAKER) (test code = 11 % 431) EOSINOPHILS RELATIVE PERCENT (BEAKER) (test code 3 % = 432) BASOPHILS RELATIVE PERCENT (BEAKER) (test code = 0 % 437) NEUTROPHILS ABSOLUTE COUNT (BEAKER) (test code = 2.34 K/ L 1.78-5.38 670) LYMPHOCYTES ABSOLUTE COUNT (BEAKER) (test code = 1.57 K/ L 1.32-3.57 414) MONOCYTES ABSOLUTE COUNT (BEAKER) (test code = 0.48 K/ L 0 .30-0.82 415) EOSINOPHILS ABSOLUTE COUNT (BEAKER) (test code = 0.14 K/ L 0.04-0.54 416) BASOPHILS ABSOLUTE COUNT (BEAKER) (test code = 0.02 K/ L 0 .01-0.08 417) IMMATURE GRANULOCYTES-RELATIVE PERCENT (BEAKER) 0 % 0-1 (test code = 2801)
[2019-09-05 00:36] LABS: Protime INR 0.91
[2019-09-05 00:41] LABS: Basophils % 0.9 % (0-1.3); Hematocrit 34.4 % (39.6-49.0); Lymphocytes % 39.7 % (15.3-44.8); MPV 8.1 fL (7.6-11.3); RBC Red Blood Cell Count 3.64 M/uL (4.33-5.43)
[2019-09-05 00:52] LABS: ALT/SGPT 7 U/L (12-78); AST/SGOT 27 U/L (15-37); Albumin 3.9 g/dL (3.4-5.0); Alkaline Phosphatase 98 U/L (45-117); BUN Blood Urea Nitrogen 23 mg/dL (7-18); Bicarbonate 23 mmol/L (21-32); Bilirubin Direct 0.1 mg/dL (0-0.2); Bilirubin Total 0.4 mg/dL (0.2-1.0); Glucose Level 86 mg/dL (74-106); Magnesium 2.2 mg/dL (1.8-2.4); Potassium 4.9 mmol/L (3.5-5.1); Protein, Total 7.9 g/dL (6.4-8.2); Sodium Level 138 mmol/L (136-145); Troponin (Emerg Dept Use Only) < 0.02 ng/mL (0.0-0.045)
--- NOTE | 2019-09-05 01:06 | EDPHYS ---
Physician Documentation [facility] Name: Sumanth Louis Age: 79 yrs Sex: Male : 1940 Arrival Date: 09/04/2019 Time: 20:54 Bed 18 Private MD: ED Physician Alexis Gleason HPI: 09/03 21:10 This 79 yrs old Male presents to ER via Wheelchair with complaints of Wrist cp Injury, Fall Injury. 21:10 The patient or guardian reports injury, pain, tenderness, ecchymosis. The complaints cp affect the right wrist diffusely. Context: resulted from a fall, out of chair. Onset: The symptoms/episode began/occurred yesterday. Associated signs and symptoms:. Unable to obtain HPI due to patient's speech is incomprehensible. Historical: - Allergies: 21:29 No Known Allergies; lp1 - Home Meds: 21:29 aspirin 81 mg Oral TbEC 1 tab once daily [Active]; atorvastatin 20 mg Oral tab 1 tab lp1 once daily [Active]; carbidopa-levodopa 25-250 mg Oral tab 1 tab 4 times per day [Active]; donepezil 5 mg Oral tab 1 tab once daily [Active]; fludrocortisone 0.1 mg Oral tab 1 tab once daily [Active]; loratadine 10 mg Oral tab 1 tab once daily [Active]; metoprolol tartrate 25 mg Oral tab 0.5 tab 2 times per day [Active]; One-A-Day Men's Multivitamin 400-300 mcg Oral tab daily [Active]; pantoprazole 40 mg Oral TbEC 1 tab once daily [Active]; Mirtazapine Oral [Active]; - PMHx: 21:29 Anemia; Anxiety; Bilateral deafness; Bilateral degeneration of macula; BPH; CHF; lp1 chronic pain syndrome; Dementia; Essential Hypertension; Hernia; Hypertension; Inguinal hernia R; LOCALIZED EDEMA; osteoarthritis; PAD; Pancreatitis; Parkinsons; Peripheral arterial occlusive disease; Vitamin D3 deficiency; - PSHx: 21:29 Appendectomy; lp1 - Immunization history:: Adult Immunizations up to date. - Social history:: Smoking status: Patient denies any tobacco usage or history of. ROS: 21:15 MS/extremity: Positive for decreased range of motion, ecchymosis, pain, tenderness, of cp the dorsum of right wrist, Negative for deformity. 21:15 Constitutional: Negative for fever. cp 21:15 Unable to obtain ROS due to patient's speech is incomprehensible. Exam: 21:20 Constitutional: The patient appears in no acute distress, alert, awake, cp non-diaphoretic, non-toxic, well developed, frail. 21:20 Head/Face: Normocephalic, atraumatic. cp 21:20 Eyes: Periorbital structures: appear normal, Conjunctiva: normal, no exudate, no injection, Lids and lashes: appear normal, bilaterally. 21:20 ENT: External ear(s): are unremarkable, Nose: is normal, Mouth: Lips: moist, Oral mucosa: moist, Posterior pharynx: Airway: no evidence of obstruction, patent. 21:20 Neck: C-spine: vertebral tenderness, that is mild, appreciated at C6 and C7, crepitus, is not appreciated. 21:20 Chest/axilla: Inspection: normal, Palpation: is normal, no crepitus, no tenderness. 21:20 Cardiovascular: Rate: normal, Rhythm: regular, Edema: ankle edema, that is moderate, JVD: is not appreciated. 21:20 Respiratory: the patient does not display signs of respiratory distress, Respirations: normal, no use of accessory muscles, no retractions, labored breathing, is not present, Breath sounds: are clear throughout. 21:20 Abdomen/GI: Inspection: abdomen appears normal, Bowel sounds: active, all quadrants, Palpation: abdomen is soft and non-tender, in all quadrants. 21:20 Back: pain, is absent, ROM is normal. 21:20 Musculoskeletal/extremity: Extremities: grossly normal except: noted in the dorsum right wrist: ecchymosis, pain, swelling, tenderness, ROM: limited passive range of motion due to pain, in the right wrist, Perfusion: the extremity is normally perfused throughout, Sensation intact. 21:20 Skin: cellulitis, is not appreciated, no rash present. 21:20 Neuro: Orientation: no acute changes, per family, Mentation: no acute changes, per family, Motor: moves all fours, strength is normal. 09/04 00:59 ECG was reviewed by the Attending Physician. cp Vital Signs: 09/03 21:23 BP 133 / 89; Pulse 75; Resp 18; Temp 98.3; Pulse Ox 98% on R/A; Weight 63.5 kg (R); lp1 22:13 BP 139 / 56; Pulse 68; Resp 18 S; Pulse Ox 96% on R/A; ca1 23:31 BP 149 / 74; Pulse 72; Resp 16; Pulse Ox 95% on R/A; mt 23:31 Temp 98.4(T); mt 09/04 01:30 BP 180 / 73; Pulse 72; Resp 16; Pulse Ox 100% on R/A; jb4 01:53 BP 159 / 61; Pulse 64; Resp 16; Pulse Ox 100% ; jb4 Procedures: 00:15 Splinting: Splint applied to right wrist using Orthoglass splint, sugar tong type. cp applied by tech. Examined by me, post splint application: neurovascular intact, Patient tolerated well. MDM: 09/03 21:01 Patient medically screened. cp 22:00 Differential diagnosis: dislocation, closed fracture, contusion, intracranial bleed. cp 09/04 00:00 Data reviewed: vital signs, nurses notes, radiologic studies, plain films. cp 00:00 Test interpretation: by ED physician or midlevel provider: xrays of right wrist show cp fracture of distal ulna, xrays of pelvis negative for fracture. 00:03 Physician consultation: Juan Diego Mccormick MD was contacted at 00:00, regarding patient's cp condition, discussed unsafe living circumstances with patient residing alone and family only checking on patient daily. Daughter in room with patient and reports herself and other family members are unable to assist patient throughout day if he is discharged to home. 09/04 00:06 Order name: Urine Microscopic Only cp 09/04 00:06 Order name: Basic Metabolic Panel; Complete Time: 00:57 cp 09/04 00:57 Interpretation: Normal except: CL 109; BUN 23; GFR 54. cp 09/04 00:07 Order name: CBC with Diff; Complete Time: 00:57 cp 09/04 00:07 Order name: LFT's; Complete Time: 00:57 cp 09/04 00:07 Order name: Magnesium; Complete Time: 00:57 cp 09/04 00:07 Order name: PT-INR; Complete Time: 00:57 cp 09/04 00:07 Order name: Troponin (emerg Dept Use Only); Complete Time: 00:57 cp 09/04 00:58 Interpretation: Within normal limits: TROPED < 0.02. 09/04 00:59 Order name: Urine Dipstick--Ancillary (enter results) mw2 09/04 01:33 Order name: Comprehensive Metabolic Panel [facility] 09/03 21:08 Order name: CT Head C Spine 09/03 21:08 Order name: XRAY Pelvis 09/03 21:08 Order name: XRAY Wrist RIGHT 3 view 09/03 23:09 Order name: Splint - Sugar Tong - Forearm; Complete Time: 23:31 cp 09/03 23:09 Order name: Sling; Complete Time: 00:47 cp 09/04 00:06 Order name: Urine Dipstick-Ancillary (obtain specimen); Complete Time: 00:47 cp 09/04 00:07 Order name: EKG; Complete Time: 00:09 cp 09/04 00:07 Order name: Cardiac monitoring; Complete Time: 00:48 cp 09/04 00:07 Order name: EKG - Nurse/Tech; Complete Time: 00:48 cp 09/04 00:07 Order name: IV Saline Lock; Complete Time: 00:36 cp 09/04 00:07 Order name: Labs collected and sent; Complete Time: 00:36 cp 09/04 01:34 Order name: CONS Pharmacy Consult EDDE 09/04 01:34 Order name: Heart Healthy EDDE 09/04 01:34 Order name: Echo with Doppler EDDE 09/04 01:34 Order name: CBC with Automated Diff EDDE 09/04 01:35 Order name: Carotid Artery Bilateral EDDE 09/04 00:07 Order name: O2 Per Protocol; Complete Time: 00:36 cp 09/04 00:07 Order name: O2 Sat Monitoring; Complete Time: 00:36 cp EC:59 Rate is 67 beats/min. Rhythm is regular. WA interval is normal. QRS interval is normal. cp QT interval is normal. Interpreted by me. Reviewed by me. Administered Medications: No medications were administered Disposition: 01:15 Chart complete. cp 03:42 Co-signature as Attending Physician, Alexis Gleason MD. pkl Disposition: 09/05/19 01:05 Hospitalization ordered by Juan Diego Mccormick for Inpatient Admission. Preliminary diagnosis are Right distal ulna fracture, Fall from chair, Unsteadiness on feet. - Bed requested for Telemetry/MedSurg (Inpatient). - Status is Inpatient Admission. jb4 - Condition is Stable. - Problem is new. - Symptoms have improved. Signatures: Dispatcher [employer] EDDE Petra Mackenzie RN RN mw Lam, Pin, MD MD pkl Pena, Laura RN RN lp1 Wood Matta PA PA cp Bryson, James, RN RN jb4 Sunshine Linares RN RN ca1 Corrections: (The following items were deleted from the chart) 01:34 01:33 Comprehensive Metabolic Panel ordered. EDDE EDMS 01:35 01:33 Comprehensive Metabolic Panel ordered. EDDE EDMS 01:35 01:33 Lipid Profile ordered. EDDE EDMS 01:35 01:33 Lipid Profile ordered. EDDE EDMS 01:37 01:33 Lipid Profile ordered. [facility] EDMS 01:37 01:05 Hospitalization Ordered by Juan Diego Mccormick MD for Inpatient Admission. Preliminary diagnosis is Right distal ulna fracture; Fall from chair; Unsteadiness on feet. Bed requested for Telemetry/MedSurg (Inpatient). Status is Inpatient Admission. Condition is Stable. Problem is new. Symptoms have improved. cp 02:15 01:37 09/05/2019 01:05 Hospitalization Ordered by Juan Diego Mccormick MD for Inpatient jb4 Admission. Preliminary diagnosis is Right distal ulna fracture; Fall from chair; Unsteadiness on feet. Bed requested for Telemetry/MedSurg (Inpatient). Status is Inpatient Admission. Condition is Stable. Problem is new. Symptoms have improved. mw
--- NOTE | 2019-09-05 01:06 | ER ---
Nurse's Notes [facility] Name: Sumanth Louis Age: 79 yrs Sex: Male : 1940 Arrival Date: 09/04/2019 Time: 20:54 Bed 18 Private MD: Diagnosis: Right distal ulna fracture;Fall from chair;Unsteadiness on feet Presentation: 09/03 21:23 Chief complaint: Daughter states patient told her he had missed sitting in chair lp1 yesterday morning and fell to floor; pain and bruising to right hand, pain to right wrist, forearm; unknown if he hit his head; Pain to low back. Coronavirus screen: Proceed with normal triage. Ebola Screen: No symptoms or risks identified at this time. Initial Sepsis Screen: Does the patient meet any 2 criteria? No. Patient's initial sepsis screen is negative. Does the patient have a suspected source of infection? No. Patient's initial sepsis screen is negative. Risk Assessment: Do you want to hurt yourself or someone else? Patient reports no desire to harm self or others. Onset of symptoms was September 03, 2019. 21:23 Method Of Arrival: Wheelchair lp1 21:23 Acuity: IRINA 3 lp1 Triage Assessment: 21:44 Injury Description: Bruise. ca1 Historical: - Allergies: 21:29 No Known Allergies; lp1 - Home Meds: 21:29 aspirin 81 mg Oral TbEC 1 tab once daily [Active]; atorvastatin 20 mg Oral tab 1 tab lp1 once daily [Active]; carbidopa-levodopa 25-250 mg Oral tab 1 tab 4 times per day [Active]; donepezil 5 mg Oral tab 1 tab once daily [Active]; fludrocortisone 0.1 mg Oral tab 1 tab once daily [Active]; loratadine 10 mg Oral tab 1 tab once daily [Active]; metoprolol tartrate 25 mg Oral tab 0.5 tab 2 times per day [Active]; One-A-Day Men's Multivitamin 400-300 mcg Oral tab daily [Active]; pantoprazole 40 mg Oral TbEC 1 tab once daily [Active]; Mirtazapine Oral [Active]; - PMHx: 21:29 Anemia; Anxiety; Bilateral deafness; Bilateral degeneration of macula; BPH; CHF; lp1 chronic pain syndrome; Dementia; Essential Hypertension; Hernia; Hypertension; Inguinal hernia R; LOCALIZED EDEMA; osteoarthritis; PAD; Pancreatitis; Parkinsons; Peripheral arterial occlusive disease; Vitamin D3 deficiency; - PSHx: 21:29 Appendectomy; lp1 - Immunization history:: Adult Immunizations up to date. - Social history:: Smoking status: Patient denies any tobacco usage or history of. Screenin:05 Fall Risk Fall in past 12 months (25 points). Secondary diagnosis (15 points) impaired ca1 mobility, Ambulatory Aid- Crutches/Cane/Walker (15 pts). Total Han Fall Scale indicates High Risk Score (45 or more points). Fall prevention measures have been instituted. Side Rails Up X 2 Family Present and informed to notify staff if the need to leave the bedside As available patient and family educated on Fall Prevention Program and Strategies. 21:30 Abuse screen: Denies threats or abuse. Denies injuries from another. Nutritional lp1 screening: No deficits noted. Tuberculosis screening: No symptoms or risk factors identified. Assessment: 21:05 General: Appears in no apparent distress. Behavior is calm, cooperative, appropriate ca1 for age. Pain: Complains of pain in sacrum, R wrist, R forearm. Neuro: Level of Consciousness is awake, alert, obeys commands, Oriented to person, place, time, situation. Cardiovascular: Heart tones S1 S2 present Capillary refill < 3 seconds. Respiratory: Airway is patent Respiratory effort is even, unlabored, Respiratory pattern is regular, symmetrical, Breath sounds are clear bilaterally. GI: Abdomen is flat, non-distended, Bowel sounds present X 4 quads. Abd is soft and non tender X 4 quads. : No signs and/or symptoms were reported regarding the genitourinary system. EENT: No signs and/or symptoms were reported regarding the EENT system. Derm: Skin is intact, is healthy with good turgor, Skin is pink, warm \\T\\ dry. Bruising that is dark purple, on right hand. Musculoskeletal: Circulation, motion, and sensation intact. Capillary refill < 3 seconds, Range of motion: limited in right wrist. 22:13 Reassessment: Patient appears in no apparent distress at this time. Patient and/or ca1 family updated on plan of care and expected duration. Pain level reassessed. Patient is alert, oriented x 3, equal unlabored respirations, skin warm/dry/pink. 23:00 Reassessment: Patient appears in no apparent distress at this time. Patient and/or jb4 family updated on plan of care and expected duration. Pain level reassessed. Patient is alert, oriented x 3, equal unlabored respirations, skin warm/dry/pink. 23:40 Reassessment: Patient appears in no apparent distress at this time. Patient and/or jb4 family updated on plan of care and expected duration. Pain level reassessed. Patient is alert, oriented x 3, equal unlabored respirations, skin warm/dry/pink. Pt is able to ambulate with walker however is very unsteady. Pt is able to follow verbal ques to correct his posture and walking. Pt appears to need constant reminding of how to properly walk otherwise remains unsteady and tries to walk while only partially putting his walker on the ground, making rapid turning movements while keeping feet together and nearly falling. Family reports acknowledging the need for the patient to have someone help him around the clock but states " we all work and cannot afford to hire help for him, and he can't afford it either. Provider notified of patients situation. 09/04 00:59 Reassessment: Patient appears in no apparent distress at this time. Patient and/or jb4 family updated on plan of care and expected duration. Pain level reassessed. Patient is alert, oriented x 3, equal unlabored respirations, skin warm/dry/pink. PT is sitting in bedside chair eating a sand which and drinking water. 01:53 Reassessment: Patient appears in no apparent distress at this time. Patient and/or jb4 family updated on plan of care and expected duration. Pain level reassessed. PT is resting in bed with eyes close, respirations even and unlabored. No s/s of pain or distress noted. Vital Signs: 09/03 21:23 BP 133 / 89; Pulse 75; Resp 18; Temp 98.3; Pulse Ox 98% on R/A; Weight 63.5 kg (R); lp1 22:13 BP 139 / 56; Pulse 68; Resp 18 S; Pulse Ox 96% on R/A; ca1 23:31 BP 149 / 74; Pulse 72; Resp 16; Pulse Ox 95% on R/A; mt 23:31 Temp 98.4(T); mt 09/04 01:30 BP 180 / 73; Pulse 72; Resp 16; Pulse Ox 100% on R/A; jb4 01:53 BP 159 / 61; Pulse 64; Resp 16; Pulse Ox 100% ; jb4 ED Course: 09/03 20:54 Patient arrived in ED. bp1 20:57 Wood Matta PA is PHCP. cp 20:57 Alexis Gleason MD is Attending Physician. cp 21:04 Sunshine Linares, RN is Primary Nurse. ca1 21:05 Patient has correct armband on for positive identification. Call light in reach. Side ca1 rails up X2. Adult w/ patient. Pulse ox on. NIBP on. Warm blanket given. 21:05 No provider procedures requiring assistance completed. Patient did not have IV access ca1 during this emergency room visit. 21:25 Triage completed. lp1 21:25 Arm band placed on. lp1 21:43 XRAY Pelvis In Process Unspecified. EDMS 21:43 XRAY Wrist RIGHT 3 view In Process Unspecified. EDMS 21:45 CT Head C Spine In Process Unspecified. EDMS 22:19 Report given to SOCORRO Chery. ca1 23:30 Orthoglass splint: Sugar tong splint applied on right arm. mt 05 00:35 Inserted saline lock: 22 gauge in left antecubital area, using aseptic technique. Blood mt collected. 01:01 Juan Diego Mccormick MD is Hospitalizing Provider. cp Administered Medications: No medications were administered Outcome: 01:05 Decision to Hospitalize by Provider. cp 01:53 Admitted to Med/surg accompanied by tech, via wheelchair, with chart, Report called to joanne Jorgensen RN 01:53 Condition: stable 01:53 Discharge instructions given to patient, Instructed on the need for admit, Demonstrated understanding of instructions. 02:15 Patient left the ED. jb4 Signatures: Dispatcher [employer] EDMS Evie Wheeler RN RN lp1 Wood Matta PA PA cp Liban Rodriguez RN RN Sophia Luis wy Sunshine Linares RN RN ca1 Ellen Darling bp1
[2019-09-05 01:11] LABS: Urine Blood NEGATIVE (NEG); Urine Glucose NEGATIVE (NEG); Urine Protein NEGATIVE (NEG); Urine pH 6.5 (5.0-7.0)
[2019-09-05] MEDS ORDERED: ONDANSETRON 4 MG/2 ML VIAL IV PRN (01:29)
[2019-09-05] MEDS ORDERED: ACETAMINOPHEN 500 MG TAB PO PRN (01:29)
[2019-09-05] MEDS ORDERED: MORPHINE 2 MG/ML SYR IV PRN (01:29)
[2019-09-05 01:35] LABS: Urine Bacteria <20 /HPF (NONE SEEN)
[2019-09-05 01:36] LABS: Urine Culture Reflex Order NOT NEEDED
[2019-09-05] MEDS ORDERED: NA CHLORIDE 0.9% 1,000 ML IV SCH (02:00)
[2019-09-05] MEDS: MIRTAZAPINE 15 MG TAB PO SCH ×2 (02:00→20:41)
[2019-09-05 04:59] LABS: Albumin 3.4 g/dL (3.4-5.0); Bilirubin Total 0.3 mg/dL (0.2-1.0); Potassium 4.8 mmol/L (3.5-5.1); Protein, Total 6.8 g/dL (6.4-8.2)
[2019-09-05 05:54] LABS: Absolute Lymphocytes (CBC) 2.1 K/uL (0.7-4.9); Basophils % 1.2 % (0-1.3); Lymphocytes % 38.2 % (15.3-44.8); RBC Red Blood Cell Count 3.61 M/uL (4.33-5.43)
--- NOTE | 2019-09-05 07:53 | P.HP ---
Certification for Inpatient Patient admitted to: Observation With expected LOS: <2 Midnights Patient will require the following post-hospital care: Assisted Practitioner: I am a practitioner with admitting privileges, knowledge of patient current condition, hospital course, and medical plan of care. Services: Services provided to patient in accordance with Admission requirements found in Title 42 Section 412.3 of the Code of Federal Regulations Patient History Date of Service: 09/05/19 Reason for admission: Syncope; status post fall with right wrist fracture History of Present Illness: Patient is an 79-year-old gentleman with history of Parkinson's disease who lives at home alone. He apparently was going to sit on his chair when he fell. He has placed his hand out and he landed on his right wrist. He suffered a right wrist fracture-this was splinted in the emergency room. Patient has been having a hard time caring for himself at home. He has advanced Parkinson's disease. Patient also has some dysuria. He will be admitted to the hospital for further evaluation. Patient will get workup for his syncope. Will get physical therapy evaluation. Patient may benefit from detention facility placement as it would provide some safety for him and allow him to build up some strength. Allergies No Known Allergies Allergy (Verified 06/07/19 21:10) Home Medications: Aspirin [Aspir-Low] 1 tab PO DAILY 06/08/19 Atorvastatin Calcium [Lipitor*] 0.5 tab PO BEDTIME 06/08/19 Carbidopa/Levodopa [Carbidopa-Levo 25-250 mg Odt] 1 tab PO QID 06/08/19 Midodrine HCl 2.5 mg PO TID 06/08/19 Mirtazapine [Remeron*] 15 mg PO BEDTIME 06/08/19 Mv-Mins/Folic/Lycopene/Ginkgo [One Daily Men's 50+ Tablet] 1 tab PO DAILY 06/08/19 Cholecalciferol (Vitamin D3) [Vitamin D 1000 Iu Tab*] 2,000 unit PO DAILY #30 tab 06/16/19 Memantine HCl [Namenda] 1 tab PO BREAKFAST 09/05/19 Memantine HCl [Namenda] 1 tab PO LUNCH 09/05/19 Polyethylene Glycol 3350 [Miralax] 17 gm PO DAILY 09/05/19 - Past Medical/Surgical History Has patient received pneumonia vaccine in the past: No Diabetic: No -: Parkinson's -: Dementia -: Macular degeneration -: 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 He is . Daughter has medical power of disability attorney. - Family History Father History Unknown: Yes - Social History Smoking Status: Former smoker Alcohol use: No CD- Drugs: No Caffeine use: Yes Place of Residence: Home Review of Systems 10-point ROS is otherwise unremarkable Physical Examination - Vital Signs Temperature: 97.1 F Blood Pressure: 162/84 Pulse: 68 Respirations: 18 Pulse Ox (%): 99 - Physical Exam General: Alert, In no apparent distress, Oriented x2, Demented HEENT: Atraumatic, PERRLA, Mucous membr. moist/pink, EOMI, Sclerae nonicteric Neck: Supple, 2+ carotid pulse no bruit, No LAD, Without JVD or thyroid abnormality Respiratory: Clear to auscultation bilaterally, Normal air movement Cardiovascular: Regular rate/rhythm, Normal S1 S2, No murmurs Gastrointestinal: Normal bowel sounds, Soft and benign, Non-distended, No tenderness Musculoskeletal: No clubbing, No swelling, No tenderness Neurological: Sensation intact, Cranial nerves 3-12 intact, Abnormal gait, Abnormal strength, Abnormal reflexes Lymphatics: No axilla or inguinal lymphadenopathy - Studies Laboratory Data (last 24 hrs) 09/05/19 00:30: WBC 4.9, Hgb 11.3 L, Hct 34.4 L, Plt Count 157 09/05/19 00:20: PT 10.7, INR 0.91 09/05/19 00:20: Sodium 138, Potassium 4.9, BUN 23 H, Creatinine 1.28, Glucose 86, Magnesium 2.2, Total Bilirubin 0.4, AST 27, ALT 7 L, Alkaline Phosphatase 98 Assessment & Plan - Problems (Diagnosis) (1) Right wrist injury Current Visit: Yes Status: Acute (2) Distal end of ulna fracture, closed Current Visit: Yes Status: Acute (3) Ataxia Onset Date: 02/05/18 Current Visit: No Status: Chronic (4) Dysarthria Onset Date: 02/05/18 Current Visit: No Status: Chronic (5) Parkinsons disease Onset Date: 02/05/18 Current Visit: No Status: Chronic - Plan Plan: 1. Monitor patient on telemetry 2. May get a carotid Doppler 3. Physical therapy evaluation 4. Follow with neurologist 5. Case management evaluation for detention facility placement 6. GI and DVT prophylaxis Discharge Plan: Home Plan to discharge in: 48 Hours - Advance Directives Does patient have a Living Will: No Does patient have a Durable POA for Healthcare: No - Code Status/Comfort Care Code Status Assessed: Yes Code Status: Full Code Critical Care: No Time Spent Managing PTS Care (In Minutes): 45
[2019-09-05] MEDS ORDERED: MEMANTINE HCL PO SCH ×2 (08:00→12:00)
[2019-09-05] MEDS ORDERED: HOME MED 1 EA UNK (Midodrine Hcl [Midodrine Hcl] 2.5 MG) PO SCH (08:00)
[2019-09-05] MEDS ORDERED: MIDODRINE HCL 5 MG TABLET PO SCH (08:00)
[2019-09-05] MEDS: CARBIDOPA/LEVODOPA 25/250 TAB PO SCH ×4 (08:29→20:41)
[2019-09-05] MEDS: VITAMIN D 1000 UNIT TAB PO SCH (08:29)
[2019-09-05] MEDS: MEMANTINE HCL 10 MG TABLET PO SCH ×2 (08:30→12:03)
[2019-09-05] MEDS: ASPIRIN EC 81 MG TAB PO SCH (08:30)
[2019-09-05] MEDS ORDERED: LEVODOPA PO SCH (09:00)
[2019-09-05] MEDS ORDERED: CARBIDOPA PO SCH (09:00)
--- NOTE | 2019-09-05 09:39 | RAD REPORT ---
EXAM DESCRIPTION: RAD - Pelvis - 09/04/2019 9:43 pm CLINICAL HISTORY: fall, pelvic pain COMPARISON: Abdomen Pelvis W Contrast dated 06/03/2019 TECHNIQUE: AP imaging of the pelvis was obtained. FINDINGS: Lower lumbar degenerative change matches the May CT study. SI joint degenerative moeller ges are mild. No sacral ala fracture identifiable. No fracture of either hemipelvis. Hip joint degene rative changes mild. No focal femoral head or femoral neck acute finding. Arterial calcifications are present. IMPRESSION: No fracture or acute pelvis finding.
--- NOTE | 2019-09-05 09:42 | RAD REPORT ---
EXAM DESCRIPTION: RAD - Wrist Right 3 View - 09/04/2019 9:43 pm CLINICAL HISTORY: fall, wrist pain COMPARISON: No comparisons FINDINGS: No fracture is identified. No periosteal reaction or destructive bone process. Moderate de generative changes are present at the radius ulna articulation in the patient has a normal variant 2 millimeter positive ulnar variance. Lateral view is not optimally positioned creating the appearance of a displaced ulna. Dislocation is not evident on the AP or oblique projections. Correlation can be made with physical exam findings as well as comparison with the contralateral left wrist. No foreign body or other soft tissue abnormality. IMPRESSION: Degenerative change with no fracture. Lateral view positioning is not optimal creating the appearance of displacement of the ulna. Correlat ion is needed with physical exam findings in comparison with contralateral left wrist.
--- NOTE | 2019-09-05 12:10 | CON ---
Date of Consultation: 09/05/2019 Reason For Consultation: Right wrist pain. History Of Present Illness: Mr. Louis is an 79-year-old male with history of Parkinson disease, who reports fall yesterday onto an outstretched right hand. The patient had subsequent pain to his right wrist, was brought to the emergency room and had x-rays which demonstrated some degenerative changes of the right wrist as well as a possible fracture. He was placed in a sugar-tong splint and admitted to floor for syncopal workup. He denies any other musculoskeletal complaints at this time. Review of Systems: As above, otherwise negative. Past Medical History: Includes dementia, macular degeneration, history of skin cancer, GERD, hyperlipidemia, CHF, peripheral arterial disease, Parkinson's. Past Surgical History: Includes inguinal hernia surgery and appendectomy. Social History: Denies smoking. Denies alcohol. Denies drug use. The patient lives with his daughter and his daughter is medical power of disability attorney. Physical Examination: General: No apparent distress. HEENT: Normocephalic, atraumatic. Neck: Supple. Cardiovascular: Brisk cap refill to all digits. Chest: Nonlabored breathing. Abdomen: Nondistended. Musculoskeletal: Right upper extremity, mild tenderness to palpation over the distal ulna. Moves all of his fingers grossly with brisk cap refill. Reports gross sensation intact. X-rays: The x-rays of his right wrist were evaluated. There is no obvious fracture, dislocation. He does have some degenerative changes at his DRUJ. Assessment And Plan: Mr. Louis is an 79-year-old male with a right wrist sprain and possible fracture of the distal ulna. At this time, given his tenderness will remain in the sugartong splint for approximately 2 weeks. At that point, he will return for a followup. We will get x-rays of his right wrist and have re-evaluation of his. If he has minimal pain at that time, I will wean him out of the splint likely put him into a wrist brace. He may follow up in my clinic in 2 weeks. DANIA/ANNIE Voice ID: [id number] Report ID: [id number] EDDIE
--- NOTE | 2019-09-05 12:18 | EKG ---
Test Date: 2019-09-05 Test Time: 00:44:20 Qc Manager: MARK MEASUREMENT RESULTS: Intervals: Rate: 67 SC: 158 QRSD: 90 QT: 420 QTc: 443 [place]: P: 38 SC: 158 QRS: -8 T: 50 INTERPRETIVE STATEMENTS: Normal sinus rhythm Normal ECG Compared to ECG 06/07/2019 17:16:58 Prolonged QT interval no longer present Electronically Signed On 09-05-19 12:17:38 CDT by Franco Preciado
--- NOTE | 2019-09-05 17:14 | RAD REPORT ---
EXAM DESCRIPTION: CT - CTHCSPWOC - 09/05/2019 11:23 am CLINICAL HISTORY: Trauma. COMPARISON: 03/31/2019 TECHNIQUE: CT scan of the brain and cervical spine without IV contrast. This exam was performed acco rding to our departmental dose-optimization program, which includes automated exposure control, adjus tment of the mA and/or kV according to patient size and/or use of iterative reconstruction technique. FINDINGS: BRAIN: The ventricles, cisterns, and sulci are age-appropriate. No evidence of acute infarction, intracrania l hemorrhage, extra-axial fluid collection, or midline shift. No air-fluid levels are seen in the par anasal sinuses to suggest acute sinusitis. There is chronic opacification of the bilateral mastoid ai r cells No depressed skull fracture. CERVICAL SPINE: No acute cervical fracture or prevertebral soft tissue swelling. The cervical alignment is maintained . There is mild multilevel degenerative disc disease as well as facet DJD throughout the cervical spi ne. There are multilevel disc bulges but without advanced canal stenosis identified. IMPRESSION: 1. No acute intracranial hemorrhage. 2. No acute fracture or subluxation of the cervical spine. Electronically signed by: Tylor Fry MD 09/04/2019 10:05 PM CDT Due to temporary technical issues with the PACS/Fluency reporting system, reports are being signed by the in house radiologist as a courtesy to ensure prompt reporting. The interpreting radiologist is f ully responsible for the content of the report.
--- NOTE | 2019-09-05 20:02 | RAD REPORT ---
EXAM DESCRIPTION: US - CP - 09/05/2019 6:38 pm CLINICAL HISTORY: Syncope COMPARISON: Head C Spine Mpr Wo Con dated 09/04/2019 TECHNIQUE: Real-time sonographic evaluation of bilateral carotid and vertebral systems was performed . Love scale and Doppler interrogation were performed with waveform tracing bilaterally. FINDINGS: Normal high resistance waveforms are noted in both external carotid arteries. The common c arotid arteries and internal carotid arteries show normal low resistance waveforms. Calcified and noncalcified plaquing changes are present in each bulb and proximal ICA. Visually no si gnificant degree of luminal narrowing identified. Peak systolic and end diastolic velocity values and the ICA/CCA ratios are in the non-hemodynamically significant range. Antegrade flow seen in both vertebral arteries. Velocity values and ratios were recorded and are retained in the patient's imaging records. IMPRESSION: Bilateral calcified and noncalcified plaquing changes are present. Atherosclerotic changes do not result in hemodynamically significant stenosis
[2019-09-05] MEDS: ATORVASTATIN 10 MG TAB PO SCH (20:41)
[2019-09-06] MEDS ORDERED: MEMANTINE HCL 10 MG TABLET PO SCH (08:00)
[2019-09-06] MEDS: MEMANTINE HCL 10 MG TABLET PO SCH ×2 (08:03→12:05)
[2019-09-06] MEDS: CARBIDOPA/LEVODOPA 25/250 TAB PO SCH ×4 (08:03→20:44)
[2019-09-06] MEDS: VITAMIN D 1000 UNIT TAB PO SCH (08:03)
[2019-09-06] MEDS: ASPIRIN EC 81 MG TAB PO SCH (08:03)
--- NOTE | 2019-09-06 08:10 | P.PN ---
Subjective Date of Service: 09/06/19 Subjective: No new changes, Improving Patient still with generalized weakness. Did well with physical therapy. However, do not feel he is safe to go home. Hopefully we can transfer to a long-term facility in the next 24 hr Review of Systems 10-point ROS is otherwise unremarkable Physical Examination - Vital Signs Temperature: 97.4 F Blood Pressure: 178/78 Pulse: 61 Respirations: 16 Pulse Ox (%): 99 - Physical Exam General: Alert, In no apparent distress, Oriented x3 Respiratory: Clear to auscultation bilaterally, Normal air movement Cardiovascular: Regular rate/rhythm, Normal S1 S2 Gastrointestinal: Normal bowel sounds, Soft and benign, Non-distended, No tenderness, No rebound, No guarding Musculoskeletal: No clubbing, No swelling, No tenderness Integumentary: No rashes Neurological: Normal speech, Abnormal gait, Abnormal strength, Abnormal tone, Abnormal affect - Studies Medications List Reviewed: Yes Assessment & Plan - Problems (Diagnosis) (1) Right wrist injury Current Visit: Yes Status: Acute (2) Distal end of ulna fracture, closed Current Visit: Yes Status: Acute (3) Ataxia Onset Date: 02/05/18 Current Visit: No Status: Chronic (4) Dysarthria Onset Date: 02/05/18 Current Visit: No Status: Chronic (5) Parkinsons disease Onset Date: 02/05/18 Current Visit: No Status: Chronic - Plan Plan: Continue with current plan of care as mentioned below 1. Continue monitoring for arrhythmia 2. Ordered carotid Doppler 3. Physical therapy evaluation appreciated 4. Follow-up with neurologist for Parkinson's disease 5. Case management evaluation for long-term facility placement 6. GI and DVT prophylaxis Discharge Plan: Assisted Plan to discharge in: 24 Hours - Advance Directives Does patient have a Living Will: No Does patient have a Durable POA for Healthcare: No - Code Status/Comfort Care Code Status: Full Code Critical Care: No Time Spent Managing PTS Care (In Minutes): 40
[2019-09-06] MEDS: LYCOPENE PO SCH (09:00)
[2019-09-06] MEDS: GINKGO PO SCH (09:00)
[2019-09-06] MEDS: MV MINS PO SCH (09:00)
[2019-09-06] MEDS: FOLIC PO SCH (09:00)
[2019-09-06] MEDS: MIRTAZAPINE 15 MG TAB PO SCH (20:44)
[2019-09-06] MEDS: ATORVASTATIN 10 MG TAB PO SCH (20:44)
[2019-09-07] MEDS: CARBIDOPA/LEVODOPA 25/250 TAB PO SCH ×4 (08:30→21:25)
[2019-09-07] MEDS: MEMANTINE HCL 10 MG TABLET PO SCH ×2 (08:30→12:05)
[2019-09-07] MEDS: VITAMIN D 1000 UNIT TAB PO SCH (08:30)
[2019-09-07] MEDS: ASPIRIN EC 81 MG TAB PO SCH (08:30)
[2019-09-07] MEDS: GINKGO PO SCH (08:31)
[2019-09-07] MEDS: LYCOPENE PO SCH (08:31)
[2019-09-07] MEDS: FOLIC PO SCH (08:31)
[2019-09-07] MEDS: MV MINS PO SCH (08:31)
--- NOTE | 2019-09-07 12:09 | P.PN ---
Subjective Date of Service: 09/07/19 Chief Complaint: Syncope; status post fall with right wrist fracture Subjective: No new changes <GustaboRoscoe Last Filed: 09/07/19 12:03> Date of Service: 09/07/19 Subjective: Doing well (Patient seen and examined with nurse practitioner.) <Feliberto Vivas Last Filed: 09/07/19 16:24> Physical Examination - Vital Signs Temperature: 98.3 F Blood Pressure: 129/65 Pulse: 68 Respirations: 16 Pulse Ox (%): 96 - Physical Exam General: Alert HEENT: Normocephalic Neck: Supple Respiratory: Clear to auscultation bilaterally, Normal air movement Capillary refill: <2 Seconds Gastrointestinal: Normal bowel sounds - Studies Medications List Reviewed: Yes <KyeRoscoe brock Filed: 09/07/19 12:03> - Physical Exam Cardiovascular: Normal pulses, Regular rate/rhythm Gastrointestinal: No masses, No rebound, No guarding Musculoskeletal: No erythema, No tenderness Neurological: Normal affect <OrtegaFeliberto Last Filed: 09/07/19 16:24> Assessment & Plan Discharge Plan: Senior Care Plan to discharge in: 24 Hours Physician Review Additional Text: Assessment Ataxia and fall risk secondary to Parkinsons disease Distal ulnar fracture, closed Dysarthria Plan Ataxia and fall risk secondary to Parkinsons disease- will continue to work with social sciences lecturer to find placement at a skilled facility. Fall precautions in place. Carotid Doppler does not show any significant hemodynamic stenosis. Will continue physical therapy. Patient needs followup with neurology on outpatient basis in regards to further management of his Parkinson's disease. Distal ulnar fracture, closed- fracture is currently splinted. Patient went to follow up with Orthopedics on outpatient basis. Will continue to monitor. Dysarthria- patient need to follow up with neurology on outpatient basis for further management. Time Spent Managing Pts Care (In Minutes): 55 <GustaboRoscoe Last Filed: 09/07/19 12:03> Discharge Plan: Other ([facility] facility) Plan to discharge in: 24 Hours Physician Review Additional Text: Patient seen and examined with nurse practitioner. Case discussed at length. Agree with plan of care. Will arrange for skilled placement. Will have physical therapy and occupational therapy evaluate. Patient with falls. Very little family support. Case discussed with nephrology as the patient has chronic renal disease recommendations by nephrology. Anticipate discharge to skilled facility once approved. I will turn the service over to the hospitalist team. I would go over the plan of care with him. <Feliberto Vivas - Last Filed: 09/07/19 16:24>
--- NOTE | 2019-09-07 14:22 | P.CNS ---
Date of Consult: 09/07/19 Reason for Consult: CKD III Requesting Physician: Feliberto Vivas Chief Complaint: Syncope; status post fall with right wrist fracture History of Present Illness: Patient is an 79-year-old gentleman with history of Parkinson's disease who lives at home alone. He apparently was going to sit on his chair when he fell. He has placed his hand out and he landed on his right wrist. He suffered a right wrist fracture-this was splinted in the emergency room. Patient has been having a hard time caring for himself at home. He has advanced Parkinson's disease. Patient also has some dysuria. He will be admitted to the hospital for further evaluation. Patient will get workup for his syncope. Will get physical therapy evaluation. Patient may benefit from long term facility placement as it would provide some safety for him and allow him to build up some strength. 21:10 This 79 yrs old Male presents to ER via Wheelchair with complaints of Wrist cp Injury, Fall Injury. 21:10 The patient or guardian reports injury, pain, tenderness, ecchymosis. The complaints cp affect the right wrist diffusely. Context: resulted from a fall, out of chair. Onset: The symptoms/episode began/occurred yesterday. Associated signs and symptoms:. Unable to obtain HPI due to patient's speech is incomprehensible. Allergies No Known Allergies Allergy (Verified 06/07/19 21:10) Home medications list reviewed: Yes Home Medications: Aspirin [Aspir-Low] 1 tab PO DAILY 06/08/19 Atorvastatin Calcium [Lipitor*] 0.5 tab PO BEDTIME 06/08/19 Carbidopa/Levodopa [Carbidopa-Levo 25-250 mg Odt] 1 tab PO QID 06/08/19 Midodrine HCl 2.5 mg PO TID 06/08/19 Mirtazapine [Remeron*] 15 mg PO BEDTIME 06/08/19 Mv-Mins/Folic/Lycopene/Ginkgo [One Daily Men's 50+ Tablet] 1 tab PO DAILY 06/08/19 Cholecalciferol (Vitamin D3) [Vitamin D 1000 Iu Tab*] 2,000 unit PO DAILY #30 tab 06/16/19 Memantine HCl [Namenda] 1 tab PO BREAKFAST 09/05/19 Memantine HCl [Namenda] 1 tab PO LUNCH 09/05/19 Polyethylene Glycol 3350 [Miralax] 17 gm PO DAILY 09/05/19 - Past Medical/Surgical History Diabetic: No -: Parkinson's -: Dementia -: Macular degeneration -: 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 He is . Daughter has medical power of insurance attorney. - Family History Father History Unknown: Yes - Social History Smoking Status: Unknown if ever smoked Alcohol use: No CD- Drugs: No Caffeine use: Yes Place of Residence: Home Review of Systems 10-point ROS is otherwise unremarkable General: Weakness, Malaise Musculoskeletal: Arm Pain Neurological: Weakness Physical Examination Temp Pulse Resp BP Pulse Ox 98.3 F 68 16 129/65 96 09/07/19 12:08 09/07/19 12:08 09/07/19 12:08 09/07/19 12:08 09/07/19 12:08 General: In no apparent distress, Cooperative HEENT: Atraumatic Neck: Supple Respiratory: Clear to auscultation bilaterally, Normal air movement Cardiovascular: No edema, Regular rate/rhythm Gastrointestinal: Soft and benign, Non-distended Musculoskeletal: No clubbing, Tenderness Integumentary: No rashes, No cyanosis Neurological: Abnormal speech Blood work reviewed in the chart. Imagings Data: EXAM DESCRIPTION: CT - CTHCSPWOC - 09/05/2019 11:23 am CLINICAL HISTORY: Trauma. COMPARISON: 03/31/2019 TECHNIQUE: CT scan of the brain and cervical spine without IV contrast. This exam was performed according to our departmental dose-optimization program, which includes automated exposure control, adjustment of the mA and/or kV according to patient size and/or use of iterative reconstruction technique. FINDINGS: BRAIN: The ventricles, cisterns, and sulci are age-appropriate. No evidence of acute infarction, intracranial hemorrhage, extra-axial fluid collection, or midline s hift. No air-fluid levels are seen in the paranasal sinuses to suggest acute sinusitis. There is chronic opacification of the bilateral mastoid air cells No depressed skull fracture. CERVICAL SPINE: No acute cervical fracture or prevertebral soft tissue swelling. The cervical alignment is maintained. There is mild multilevel degenerative disc disease as well as facet DJD throughout the cervical spine. There are multilevel disc bulges but without advanced canal stenosis identified. IMPRESSION: 1. No acute intracranial hemorrhage. 2. No acute fracture or subluxation of the cervical spine. Conclusions/Impression: A/ CKD III, improving. Diastolic CHF, chronic. Chronic hypotension. Anemia in chronic illness. Parkinson's Disease Parkinson's Dementia P/ Continue current POC and Medications. Restart home medications as indicated. Agree with midodrine. No NSAIDs. AM labs PRN. Daily weight. Thank you kindly for the consultation. Case reviewed with Dr. Vivas.
[2019-09-07] MEDS: MIRTAZAPINE 15 MG TAB PO SCH (21:25)
[2019-09-07] MEDS: ATORVASTATIN 10 MG TAB PO SCH (21:26)
[2019-09-08 06:02] VITALS: BMI 24.6
[2019-09-08] MEDS: VITAMIN D 1000 UNIT TAB PO SCH (07:27)
[2019-09-08] MEDS: ASPIRIN EC 81 MG TAB PO SCH (07:28)
[2019-09-08] MEDS: MULTIVIT W/ MINERAL TAB PO SCH (07:28)
[2019-09-08] MEDS: CARBIDOPA/LEVODOPA 25/250 TAB PO SCH ×4 (07:28→20:09)
[2019-09-08] MEDS: MEMANTINE HCL 10 MG TABLET PO SCH ×2 (07:28→11:00)
[2019-09-08 07:34] VITALS: O2SAT 99
--- NOTE | 2019-09-08 08:20 | ECHO ---
HEIGHT: 5 ft 2 in WEIGHT: 134 lb 11.2 oz DATE OF STUDY: 09/07/[address]: Juan Diego Mccormick MD 2-DIMENSIONAL: YES M.MODE: YES DOPPLER: YES COLOR FLOW: YES TDS: NO PORTABLE: NO DEFINITY: NO BUBBLE STUDY: NO DIAGNOSIS: SYNCOPE CARDIAC HISTORY: CATHERIZATION: NO SURGERY: NO PROSTHETIC VALVE: NO PACEMAKER: NO MEASUREMENTS (cm) DIASTOLIC (NORMALS) SYSTOLIC (NORMALS) IVSd 1.2 (0.6-1.2) LA Diam 2.8 (1.9-4.0) LVEF 60% LVIDd 3.5 (3.5-5.7) LVIDs 2.4 (2.0-3.5) %FS 31% LVPWd 1.0 (0.6-1.2) Ao Diam 3.3 (2.0-3.7) 2 DIMENSIONAL ASSESSMENT: RIGHT ATRIUM: NORMAL LEFT ATRIUM: NORMAL RIGHT VENTRICLE: NORMAL LEFT VENTRICLE: NORMAL TRICUSPID VALVE: NORMAL MITRAL VALVE: MITRAL VALVE PROLAPSE PULMONIC VALVE: NOARMAL AORTIC VALVE: SCLEROSIS PERICARDIAL EFFUSION: NONE AORTIC ROOT: NORMAL LEFT VENTRICULAR WALL MOTION: NORMAL. DOPPLER/COLOR FLOW: MILD AORTIC, TRICUSPID REGURGITATION - NORMAL RIGHT VENTRICULAR SYSTOLIC PRESSURE. COMMENTS: MILD AORTIC AND TRICUSPID REGURGITATION. MITRAL VALVE PROLAPSE. NORMAL LEFT VENTRICULAR SIZE AND FUNCTION. AORTIC SCLEROSIS WITH NO STENOSIS. TECHNOLOGIST: MAXINE LOVE
--- NOTE | 2019-09-08 16:15 | PN ---
Date of Progress Note: 09/08/2019 Subjective: Patient seen and examined. Chart reviewed and case discussed with RN. Patient was able to get up with assist to use the commode. States his pain is stable. Code Status: Full. Medications: List reviewed. Objective: Vital Signs: Temperature 97.5, heart rate 71, blood pressure 168/78, respirations 18, O2 99% on room air. General: Awake, alert, oriented x3 elderly male, in some mild distress. CV: S1, S2. Regular rate and rhythm. Peripheral pulses present. Respiratory: Moving air well bilaterally. No wheezing or stridor. Gastrointestinal: Abdomen is soft, nontender, nondistended. Positive bowel sounds. Extremities: No clubbing or cyanosis. Patient has upper extremity in splint on the right side. Neurologic: Nonfocal. Laboratory Data: Pending. No labs ordered for today. Assessment: 79-year-old male with: 1.Ataxia. 2.Fall risk secondary to Parkinson disease. 3.Distal ulnar fracture, closed, currently splinted. Appreciate Dr. Herrera's input. He recommends ou tpatient followup and repeat x-rays in 2 weeks. 4.Dysarthria. Continue with Neurology as outpatient. 5.Chronic kidney disease stage 3. Plan: Patient to be referred to a snf facility. I spoke with Case Management, pending spike monsalve. /ANNIE Voice ID: [id number] Report ID: [id number]
[2019-09-08] MEDS: ATORVASTATIN 10 MG TAB PO SCH (20:09)
[2019-09-08] MEDS: MIRTAZAPINE 15 MG TAB PO SCH (20:09)
--- NOTE | 2019-09-08 21:44 | P.PN ---
Date of Service: 09/08/19 Vital Signs Temp Pulse Resp BP Pulse Ox 97.6 F 66 16 143/69 H 99 09/08/19 20:00 09/08/19 20:00 09/08/19 20:00 09/08/19 20:00 09/08/19 20:00 Medications Acetaminophen (Tylenol -Extra Strength) 500 mg PO Q6H PRN PRN Reason: pain/fever Stop: 10/05/19 01:30 Aspirin (Aspirin Ec) 81 mg PO DAILY [facility] Stop: 10/05/19 09:01 Last Admin: 09/08/19 07:28 Dose: 81 mg Documented by: Atorvastatin Calcium (Lipitor) 10 mg PO BEDTIME [facility] Stop: 10/05/19 21:01 Last Admin: 09/08/19 20:09 Dose: 10 mg Documented by: Carbidopa/Levodopa (Sinemet 25-250) 1 tab PO QID [facility] Stop: 10/05/19 09:01 Last Admin: 09/08/19 20:09 Dose: 1 tab Documented by: Cholecalciferol (Vitamin D 1000 Iu Tab) 2,000 unit PO DAILY [facility] Stop: 10/05/19 09:01 Last Admin: 09/08/19 07:27 Dose: 2,000 unit Documented by: Memantine (Namenda) 5 mg PO BREAKFAST [facility] Stop: 10/05/19 08:16 Last Admin: 09/08/19 07:28 Dose: 5 mg Documented by: Memantine (Namenda) 5 mg PO LUNCH [facility] Stop: 10/05/19 12:01 Last Admin: 09/08/19 11:00 Dose: 5 mg Documented by: Mirtazapine (Remeron) 15 mg PO BEDTIME [facility] Stop: 10/05/19 02:01 Last Admin: 09/08/19 20:09 Dose: 15 mg Documented by: Morphine Sulfate (Morphine Sulfate) 2 mg IV Q4H PRN PRN Reason: Pain scale 5-7 (Moderate) Stop: 10/05/19 01:30 Multivitamins/Minerals (Centrum Silver) 1 tab PO DAILY [facility] Stop: 10/07/19 09:01 Last Admin: 09/08/19 07:28 Dose: 1 tab Documented by: Ondansetron HCl (Zofran) 4 mg IV Q4H PRN PRN Reason: NAUSEA / VOMITING Stop: 10/05/19 01:30 Sodium Chloride (Normal Saline Flush) 10 ml IV BID DAVID Stop: 10/05/19 09:01 Last Admin: 09/08/19 20:09 Dose: 10 ml Documented by: Assessment/ Plan: Nephrology Doing well. Thirsty. CPS stable without CP or SOB. No acute events overnight. General: In no apparent distress, Cooperative HEENT: Atraumatic Neck: Supple Respiratory: Clear to auscultation bilaterally, Normal air movement Cardiovascular: No edema, Regular rate/rhythm Gastrointestinal: Soft and benign, Non-distended Musculoskeletal: No clubbing, Tenderness Integumentary: No rashes, No cyanosis Neurological: Abnormal speech Blood work reviewed in the chart. Imagings Data: EXAM DESCRIPTION: CT - C[facility]CSP[facility]OC - 09/05/2019 11:23 am CLINICAL HISTORY: Trauma. COMPARISON: 03/31/2019 TECHNIQUE: CT scan of the brain and cervical spine without IV contrast. This exam was performed according to our departmental dose-optimization program, which includes automated exposure control, adjustment of the mA and/or kV according to patient size and/or use of iterative reconstruction technique. FINDINGS: BRAIN: The ventricles, cisterns, and sulci are age-appropriate. No evidence of acute infarction, intracranial hemorrhage, extra-axial fluid collection, or midline shift. No air-fluid levels are seen in the paranasal sinuses to suggest acute sinusitis. There is chronic opacification of the bilateral mastoid air cells No depressed skull fracture. CERVICAL SPINE: No acute cervical fracture or prevertebral soft tissue swelling. The cervical alignment is maintained. There is mild multilevel degenerative disc disease as well as facet DJD throughout the cervical spine. There are multilevel disc bulges but without advanced canal stenosis identified. IMPRESSION: 1. No acute intracranial hemorrhage. 2. No acute fracture or subluxation of the cervical spine. Conclusions/Impression: A/ CKD III Diastolic CHF, chronic. Chronic hypotension. Anemia in chronic illness. Parkinson's Disease Parkinson's Dementia P/ Continue current POC and Medications. Follow up with ortho. Midodrine as needed for hypotension. No NSAIDs. AM labs PRN. Daily weight.
[2019-09-09 04:47] LABS: Absolute Lymphocytes (CBC) 1.9 K/uL (0.7-4.9); Basophils % 1.1 % (0-1.3); Hematocrit 35.6 % (39.6-49.0); Lymphocytes % 36.6 % (15.3-44.8); MPV 7.7 fL (7.6-11.3); RBC Red Blood Cell Count 3.75 M/uL (4.33-5.43)
[2019-09-09 05:03] LABS: Potassium 4.1 mmol/L (3.5-5.1)
[2019-09-09] MEDS: MULTIVIT W/ MINERAL TAB PO SCH (08:40)
[2019-09-09] MEDS: MEMANTINE HCL 10 MG TABLET PO SCH ×2 (08:40→12:11)
[2019-09-09] MEDS: ASPIRIN EC 81 MG TAB PO SCH (08:40)
[2019-09-09] MEDS: CARBIDOPA/LEVODOPA 25/250 TAB PO SCH ×4 (08:40→20:12)
[2019-09-09] MEDS: VITAMIN D 1000 UNIT TAB PO SCH (08:40)
[2019-09-09] MEDS ORDERED: TRAMADOL HCL 50 MG TAB PO PRN (10:44)
--- NOTE | 2019-09-09 14:56 | PN ---
Date of Progress Note: 09/09/2019 Subjective: Patient is seen and examined, chart reviewed, and case discussed with RN. Patient appar ently has been doing well, ambulating, was having difficulty eating breakfast this morning with his n ondominant hand. Medications: List reviewed. Physical Examination: Vital Signs: Temperature 97.8, heart rate 70, blood pressure 143/66, respirations 20, O2 of 100% on room air. General: Awake, alert, oriented x3. Elderly male, not in any acute distress. CV: S1, S2. Respiratory: Moving air well bilaterally. Abdomen: Soft, nontender, nondistended. Positive bowel sounds. Extremities: Right upper extremity in sling and [place] wrapped. No clubbing, cyanosis, or edema. Neurologic: Nonfocal. The patient does have rigidity and tremor from his Parkinson's. Laboratory Data: Sodium 138, potassium 4.1, chloride 105, CO2 of 27, BUN 25, creatinine 1.24, glucos e 82, calcium 8.6. WBC 5.1, H and H 12 and 35.6, platelets 147, neutrophils 45%. Assessment And Plan: 79-year-old male with: 1.Ataxia, doing well with physical therapy. 2.Fall risk, secondary to Parkinson disease. 3.Distal ulnar fracture, closed on initial encounter, splinted. Ortho on board. Dr. Herrera recommend s outpatient followup and repeat x-rays in 2 weeks. 4.Dysarthria. We will need to continue follow up with Neurology as outpatient. 5.Chronic kidney disease stage 3. Appreciate Dr. Barnes's input. Creatinine is stable. Continue to avoid NSAIDs. Plan: Discharge planning. Patient is a fall risk and therefore is being referred to [facility] facility; however, [facility] is full and [facility] is out of network. [facility] is being consi dered. Backup plan would be for patient to go home and have family member stay with him and set up [facility]. /ANNIE Voice ID: [id number] Report ID: [id number]
--- NOTE | 2019-09-09 19:59 | PN ---
Date of Progress Note: 09/09/2019 Subjective: Patient was seen and examined. He is a very poor historian. Offers no complaints. Objective: Vital Signs: Have been reviewed and are stable. General Examination: He appears in no a cute distress. Respiratory: Lungs are clear to auscultation. Abdomen: Soft and not tender. Extremities: Right upper extremity was noted to be in the sling. Laboratory Data: At this time is showing stable hemoglobin, hematocrit, and platelet count, and BMP results have been reviewed as well. Impression: 1.Acute renal failure, improving. 2.Distal ulnar fracture with outpatient followup and repeat x-rays. 3.Ataxia, stable. 4.Severe Parkinson disease with ataxia and fall risk. Plan: The patient's renal functions remained stable. Continue all medications and plan of care. Av oid further hypotension and nephrotoxins and we will follow up closely. VV/MODL Voice ID: [id number] Report ID: [id number]
[2019-09-09] MEDS: ATORVASTATIN 10 MG TAB PO SCH (20:12)
[2019-09-09] MEDS: MIRTAZAPINE 15 MG TAB PO SCH (20:12)
[2019-09-10] MEDS: MULTIVIT W/ MINERAL TAB PO SCH (09:09)
[2019-09-10] MEDS: ASPIRIN EC 81 MG TAB PO SCH (09:09)
[2019-09-10] MEDS: MEMANTINE HCL 10 MG TABLET PO SCH (09:09)
[2019-09-10] MEDS: VITAMIN D 1000 UNIT TAB PO SCH (09:09)
[2019-09-10] MEDS: CARBIDOPA/LEVODOPA 25/250 TAB PO SCH (09:09)
[2019-09-10 12:07] VITALS: BP 140/66; TEMP 97.3
--- NOTE | 2019-09-10 22:32 | P.PN ---
Date of Service: 09/10/19 Vital Signs Temp Pulse Resp BP Pulse Ox 97.3 F 78 16 140/66 99 09/10/19 12:00 09/10/19 12:00 09/10/19 12:00 09/10/19 12:00 09/10/19 12:00 Assessment/ Plan: Nephrology Feeling better. Constipation. CPS stable without CP or SOB. No acute events overnight. General: In no apparent distress, Cooperative HEENT: Atraumatic Neck: Supple Respiratory: Clear to auscultation bilaterally, Normal air movement Cardiovascular: No edema, Regular rate/rhythm Gastrointestinal: Soft and benign, Non-distended Musculoskeletal: No clubbing, Tenderness Integumentary: No rashes, No cyanosis Neurological: Abnormal speech Blood work reviewed in the chart. Imagings Data: EXAM DESCRIPTION: CT - [facility] - 09/05/2019 11:23 am CLINICAL HISTORY: Trauma. COMPARISON: 03/31/2019 TECHNIQUE: CT scan of the brain and cervical spine without IV contrast. This exam was performed according to our departmental dose-optimization program, which includes automated exposure control, adjustment of the mA and/or kV according to patient size and/or use of iterative reconstruction technique. FINDINGS: BRAIN: The ventricles, cisterns, and sulci are age-appropriate. No evidence of acute infarction, intracranial hemorrhage, extra-axial fluid collection, or midline shift. No air-fluid levels are seen in the paranasal sinuses to suggest acute sinusitis. There is chronic opacification of the bilateral mastoid air cells No depressed skull fracture. CERVICAL SPINE: No acute cervical fracture or prevertebral soft tissue swelling. The cervical alignment is maintained. There is mild multilevel degenerative disc disease as well as facet DJD throughout the cervical spine. There are multilevel disc bulges but without advanced canal stenosis identified. IMPRESSION: 1. No acute intracranial hemorrhage. 2. No acute fracture or subluxation of the cervical spine. Conclusions/Impression: A/ CKD III Diastolic CHF, chronic. Chronic hypotension. Anemia in chronic illness. Parkinson's Disease Parkinson's Dementia P/ Continue current POC and Medications. Follow up with ortho. Midodrine as needed for hypotension. Recommend miralax. No NSAIDs. AM labs PRN. Daily weight.
--- NOTE | 2019-09-11 00:11 | DS ---
Date of Discharge: 09/10/2019 Consultants: 1.Dr. Barnes with Nephrology. 2.Dr. Herrera with Orthopedics. Procedure: Splinting of the right wrist. Admitting Diagnoses: 1.Right wrist injury. 2.Distal end of ulna fracture, closed initial encounter. 3.Ataxia. 4.Dysarthria. 5.Parkinson disease. 6.Macular degeneration. 7.Mixed hyperlipidemia. 8.Gastroesophageal reflux disease. 9.History of chronic diastolic heart failure. 10.Peripheral arterial disease. Discharge Diagnoses: 1.Ataxia, working well with physical therapy. 2.Fall risk. 3.Distal ulnar fracture on the right, closed initial encounter, currently on splint. We will need r epeat x-rays in 2 weeks and orthopedic followup. 4.Dysarthria. Outpatient Neurology followup. 5.Chronic kidney disease stage 3, stable. 6.Chronic diastolic heart failure, stable. 7.Mixed hyperlipidemia, stable. 8.Gastroesophageal reflux disease, stable. 9.Macular degeneration. 10.Parkinson disease. 11.Peripheral arterial disease. Hospital Course: Patient is an 79-year-old male with past medical history of Parkinson's amongst oth er medical conditions, comes in with fall and injury to his wrist. The patient had a distal ulnar fr acture and an injury to his wrist. Patient was seen by Orthopedics, Dr. Herrera, and was splinted. Thi s is a possible syncopal type episode. Carotid artery ultrasound was done, showed bilateral calcifie d and noncalcified plaquing changes, no significant stenosis. Pelvis x-ray did not show any fracture . Head CT cervical spine also did not show any acute hemorrhage or fracture of the cervical spine. Patient was also seen by his pathology laboratory director and Dr. Barnes for his chronic kidney disease. He, otherw ise remained stable, he was able to work with Physical Therapy. He does have Parkinson's and gait ab normalities. He is to follow up with Neurology as an outpatient. Dr. Herrera recommended repeat x-rays of the wrist in 2 weeks and take him out of the splint and put in a brace. Pain was well controlled . Patient was then referred to SNF and was finally difficult to place, however, was finally accepted at [facility] and was then discharged in a stable condition. Activity: Fall precautions. Patient is nonweightbearing on the right upper extremity and to keep ri ght upper extremity in the splint. Diet: Heart healthy. Followup: Follow up with primary care physician in 1-2 weeks. Follow up with orthopedic surgeon, Dr Sj Herrera, in 2 weeks for repeat x-rays and removal of splint. Return to ER for worsening condition. F ollow up with pathology laboratory director, Dr. Barnes in 2 weeks. Medications: As per medication reconciliation list. Physical Examination: General: Awake, alert, and oriented, elderly male. CV: S1, S2. Respiratory: Moving air well bilaterally. Abdomen: Soft, nontender, nondistended. Extremities: No clubbing, cyanosis, or edema. Musculoskeletal: Right arm in splint and sling. Neurologic: Nonfocal, the patient does have a flat affect and Parkinson's tremor. SA/MODL Voice ID: [id number] Report ID: [id number]
== END 2019-09-10 12:20 ==
LOC: ER 20:48 → ERHOLD 09-05 01:37 → 2ND 09-05 01:58
PROVIDERS: ADMIT Hospitalist; ATTEND Family Medicine
DX: R27.0 Ataxia, unspecified (principal); S52.601A Unspecified fracture of lower end of right ulna, initial encounter for closed fracture; S63.501A Unspecified sprain of right wrist, initial encounter; G20 Parkinson's disease; K21.9 Gastro-esophageal reflux disease without esophagitis; Z87.891 Personal history of nicotine dependence; R47.1 Dysarthria and anarthria; W07.XXXA Fall from chair, initial encounter; I13.0 Hypertensive heart and chronic kidney disease with heart failure and stage 1 through stage 4 chronic kidney disease, or unspecified chronic kidney disease; N18.3 Chronic kidney disease, stage 3 (moderate); I50.32 Chronic diastolic (congestive) heart failure; I95.89 Other hypotension; D63.8 Anemia in other chronic diseases classified elsewhere; F02.80 Dementia in other diseases classified elsewhere, unspecified severity, without behavioral disturbance, psychotic disturbance, mood disturbance, and anxiety; N17.9 Acute kidney failure, unspecified; H35.30 Unspecified macular degeneration; E78.2 Mixed hyperlipidemia; I73.9 Peripheral vascular disease, unspecified
CPT/HCPCS: 93005; 93306; 85025 ×3; 80048 ×2; 36415 ×2; 83735; 85610; 80076; 84484; 80053; 70450; 72125; 72170; 73110; 93880; 97535 ×3; 97116 ×5; 97161; 97530 ×4; 99285; G0378 ×8; 81003; 81015; J7030

== ENCOUNTER 2020-02-09 08:59 | Inpatient (IN) | payer MEDICARE ==
[2020-02-09 09:30] LABS: Absolute Lymphocytes (CBC) 1.1 K/uL (0.7-4.9); Basophils % 0.9 % (0-1.3); Hematocrit 33.6 % (39.6-49.0); Lymphocytes % 29.3 % (15.3-44.8); MPV 7.7 fL (7.6-11.3); RBC Red Blood Cell Count 3.59 M/uL (4.33-5.43)
--- OUTSIDE RECORDS SUMMARY | 2020-02-09 09:42 | XMS REPORT | Continuity of Care Document ---
:1940 Author Organization [facility] t Address [address] [place] [address] Care Team Providers Name Role Phone Corin Barnes Primary Care Physician ZEKE Attending Clinician Unavailable KAITLIN HAYES Admitting Clinician Unavailable Payers Payer Name Policy Type Policy Number Effective Date Expiration Date S ource Problems Condition Condition Condition Status Onset Resolution Last Treating Co mments Source Name Details Category Date Date Treatment Clinician Date Syncope, Syncope, Disease Active [facility]27 Sindi martins - d syncope d syncope 00:00: [facility] libby type type 00 Center Allergies, Adverse Reactions, Alerts Allergy Allergy Status Severity Reaction(s) Onset Inactive Treating Comm ents Source Name Type Date Date Clinician No Known DA Active [facility] Allergie 07-28 [facility] 00:00: [address] Social History Social Habit Start Date Stop Date Quantity Comments Source History SDOH [facility] - [facility] Std Drinks Medica l Center History SDOH [facility] - Alcohol Binge Medical [facility] Sex Assigned At [facility] Tobacco use and 2018-06-27 2018-06-27 Never used [facility] kes - exposure 00:00:00 00:00:00 Medical Center Alcohol intake 2018-06-27 2018-06-27 Current [facility] es - 00:00:00 00:00:00 non-drinker of Medical Ce nter alcohol (finding) History SDOH 2018-06-27 2018-06-[address] [facility] - Alcohol Frequency 00:00:00 00:00:00 Medical Center Smoking Status Start Date Stop Date Source Never smoker [facility] M edical [facility] Medications Ordered Filled Start Stop Current Ordering Indication Dosage Frequency Signature Comments Components Source Medication Medication Date Date Medication? Clinician (SIG) Name Name aspirin 81 2019- Yes 81mg QD Take [address] [facility] EC 3-05 by mouth [facility] - tablet 16:29: daily. Medical 26 [facility] atorvastati Yes 20mg QD Take [address] n (LIPITOR) 3-05 by mouth Luke s - 20 MG 16:29: daily. Medical tablet 26 [facility] carbidopa-l Yes 1{tbl} Q.[id number] Take [address] evodopa 3-05 [id number] tablet by L ukes - (SINEMET) 16:29: 3D mouth 3 Medic al 25-250 mg 26 (three) Center per tablet times daily. donepezil Yes 5mg QD Take [address] (ARICEPT) 5 3-05 by mouth Luke s - MG tablet 16:29: nightly. Medi libby 26 Center fluticasone Yes 1{spray QD [address] (FLONASE) 3-05 } Nasal [facility] - 50 16:29: route Medical mcg/actuati 26 daily. Center on nasal spray multivitami Yes 1{capsu QD Take [address] n capsule 3-05 le} capsule by Luke [facility] - 16:29: mouth Medical 26 daily. United metoprolol 2020- No 12.5mg Q.5D Take 0.[address] (LOPRESSOR) 3-05 03-04 tablets Luke s - 25 MG 00:00: 23:59 (12.5 mg Medical tablet 00 :00 total) by Center mouth 2 (two) times daily. Procedures This patient has no known procedures. Plan of Care Planned Activity Planned Date Details Comments Source Future Scheduled 2019-12-29 INFLUENZA VACCINE (#1) [facility] Test 00:00:00 [code = INFLUENZA Medical Ce nter VACCINE (#1)] Future Scheduled 2018-04-[address] [facility] - Test 00:00:00 WELLNESS (YEAR 2 or Medical Center FIRST YEAR if no IPPE) [code = MEDICARE ANNUAL WELLNESS (YEAR 2 or FIRST YEAR if no IPPE)] Future Scheduled 2003 PNEUMOCOCCAL 65+ YRS [facility] - Test 00:00:00 (1 of 1 - Medical Center [id number]) [code = PNEUMOCOCCAL 65+ YRS (1 of 1 - [id number] PCV13)] Results Test Description Test Time Test Comments Results Result Comments Source TROPONIN-I 2018-07-29 09:26:00 Test Item Value Reference Range Interpretation Comme nts TROPONIN-I (test code = TROPI) < 0.012 NG/ML 0.012-0.033 L Q 6HRS. [id number] 03:54:00 Test Item Value Reference Range Interpretation Comments TROPONIN-I (test code = TROPI) < 0.012 NG/ML 0.012-0.033 L [id number] 21:09:00 Test Item Value Reference Range Interpretation Comments TROPONIN-I (test code = TROPI) < 0.012 NG/ML 0.012-0.033 L COMPREHENSIVE METABOLIC [id number] 17:26:00 Test Item Value Reference Range Interpretation Comments SODIUM (test code = NA) 140 MMOL/L 137-145 N POTASSIUM (test code = 4.4 MMOL/L 3.5-5.1 N K) CHLORIDE (test code = 104 MMOL/L 98-107 N CL) CARBON DIOXIDE (test 26 MMOL/L 22-30 N code = CO2) GLUCOSE (test code = 89 MG/DL 74-106 N GLU) BLOOD UREA NITROGEN 21 MG/DL 9-20 H (test code = BUN) GLOMERULAR FILTRATION > 60 Report ing units: RATE (test code = GFR) ml/mi n/1.73 m2 (Modified MDRD Formula)Referen ce Range: > or = 6 0 ml/min/1.73 m2 CREATININE (test code = 1.10 MG/DL 0.66-1.25 N CREAT) TOTAL PROTEIN (test 7.2 G/DL 6.2-7.6 N code = PROT) ALBUMIN (test code = 4.3 G/DL 3.5-5.0 N ALB) CALCIUM (test code = 9.3 MG/DL 8.4-10.2 N CA) BILIRUBIN TOTAL (test 0.4 MG/DL 0.2-1.3 N code = BILT) SGOT/AST (test code = 36 UNITS/L 17-59 N AST) SGPT/ALT (test code = 23 UNITS/L 21-72 N ALT) ALKALINE PHOSPHATASE 86 UNITS/L 38-126 N (test code = ALKP) [id number] 17:26:00 Test Item Value Reference Range Interpretation Comments PHOSPHOROUS (test code = PHOS) 3.4 MG/DL 2.5-4.5 N [id number] 17:26:00 Test Item Value Reference Range Interpretation Comments MAGNESIUM (test code = MAG) 2.3 MG/DL 1.6-2.3 N TROPONIN I [id number] 17:09:00 Test Item Value Reference Range Interpretation Comments TROPONIN I RAPID (test code = 0.01 NG/ML 0.00-0.05 N TROPIRAP) CBC W/AUTO [id number] 17:09:00 Test Item Value Reference Range Interpretation Comments WHITE BLOOD CELL (test code = 4.6 K/MM3 3.8-9.8 N WBC) RED BLOOD CELL (test code = 3.75 M/MM3 3.95-5.67 L RBC) HEMOGLOBIN (test code = HGB) 11.8 G/DL 12.4-16.7 L HEMATOCRIT (test code = HCT) 36.0 % 35.9-49.5 N MEAN CELL VOLUME (test code = 96 fL 81.7-96.1 N MCV) MEAN CELL HGB (test code = MCH) 31.5 pg 27.6-33.2 N MEAN CELL HGB CONCETRATION 32.8 % 32.9-35.5 L (test code = MCHC) RED CELL DISTRIBUTION WIDTH 12.8 % 12.1-15.2 N (test code = RDW) PLATELET COUNT (test code = 166 K/MM3 129-368 N PLT) MEAN PLATELET VOLUME (test code 9.5 fl 7.4-10.4 N = MPV) NEUTROPHIL % (test code = NT%) 54.9 % 43-75 N IMMATURE GRANULOCYTE % (test 0.2 % 0.0-2.0 N code = IG%) LYMPHOCYTE % (test code = LY%) 34.7 % 14-44 N MONOCYTE % (test code = MO%) 8.7 % 4-13 N EOSINOPHIL % (test code = EO%) 1.1 % 0-6 N BASOPHIL % (test code = BA%) 0.4 % 0-2 N NUCLEATED RBC % (test code = 0.0 % 0-1.0 N NRBC%) NEUTROPHIL # (test code = NT#) 2.51 K/mm3 2.0-7.6 N IMMATURE GRANULOCYTE # (test 0.01 x10 3/uL 0-0.03 N code = IG#) LYMPHOCYTE # (test code = LY#) 1.59 K/mm3 1.0-3.8 N MONOCYTE # (test code = MO#) 0.40 K/mm3 0.1-0.8 N EOSINOPHIL # (test code = EO#) 0.05 K/mm3 0.0-0.2 N BASOPHIL # (test code = BA#) 0.02 K/mm3 0.0-0.2 N NUCLEATED RBC # (test code = 0.00 K/mm3 0.0-0.1 N NRBC#) - XR CHEST [id number] 16:56:00 Patient Name: CARINA SAMANIEGO Unit No: [id number] EXAMS: CPT CODE: [id number] XR CHEST 1V 05612 EXAMINATION: - XR CHEST 1V. LOCATION: B2. [...] Technologist: Carolina Sherman, RT(R) Transcrpt Date/Tm/Trnsp: 07/28/2018 (1656) CassPR7 Orig Print D/T: S: 07/28/2018 (2864) [facility] NAME: CARINA SAMANIEGO [id number] PHYS: [place] [address] : 1940 AGE: 78 SEX: M LOC: ANSHU PHONE #: [phone] EXAM DATE: 07/28/2018 STATUS: PRE ER FAX #: [phone] RADIOLOGY NO: PAGE 1 Signed ReportBLOOD [id number] 11:02:00 Test Item Value Reference Range Interpretation Comments CULTURE (BEAKER) (test No growth in 5 days code = 1095) BLOOD [id number] 11:02:00 Test Item Value Reference Range Interpretation Comments CULTURE (BEAKER) (test No growth in 5 days code = 1095) COMPREHENSIVE METABOLIC [id number] 13:41:00 Test Item Value Reference Range Interpretation Comments TOTAL PROTEIN 6.3 gm/dL 6.0-8.3 (BEAKER) (test code = 770) ALBUMIN (BEAKER) 3.7 g/dL 3.5-5.0 (test code = 1145) ALKALINE PHOSPHATASE 86 U/L 40-150 (BEAKER) (test code = 346) BILIRUBIN TOTAL 0.4 mg/dL 0.2-1.2 (BEAKER) (test code = 377) SODIUM (BEAKER) (test 139 meq/L 136-145 code = 381) POTASSIUM (BEAKER) 4.1 meq/L 3.5-5.1 (test code = 379) CHLORIDE (BEAKER) 104 meq/L 98-107 (test code = 382) CO2 (BEAKER) (test 27 meq/L 22-29 code = 355) BLOOD UREA NITROGEN 9 mg/dL 7-21 (BEAKER) (test code = 354) CREATININE (BEAKER) 1.06 mg/dL 0.57-1.25 (test code = 358) GLUCOSE RANDOM 104 mg/dL 70-105 (BEAKER) (test code = 652) CALCIUM (BEAKER) 9.1 mg/dL 8.4-10.2 (test code = 697) AST (SGOT) (BEAKER) 19 U/L 5-34 (test code = 353) ALT (SGPT) (BEAKER) < U/L 6-55 L (test code = 347) EGFR (BEAKER) (test 67 mL/min/1.73 ESTIMA NORMAN GFR IS code = 1092) sq m NOT ACCURATE CREATININE CLEARANCE IN PREDICTING GLOMERULAR FILTRATION RATE . ESTIMATED GFR I S NOT APPLICABLE FOR DIALYSIS PATIEN TS. [id number] 13:24:00 Test Item Value Reference Range Interpretation Comments MAGNESIUM (LAYA) (test code = 1.9 mg/dL 1.6-2.6 627) [id number] 13:24:00 Test Item Value Reference Range Interpretation Comments LIPASE (BEAKER) (test code = 749) 521 U/L 8-78 H U/S, ABDOMINAL, [id number] 11:30:00Abdomen limited area? Add comment if clarification [...] months to document stability. Signed: Shaheed Benjamin MDReport Verified Date/Time: 07/01/2018 11:30:04 Reading Location: [place] [id number] Ultrasound Reading Room [id number] 06:07:00 Test Item Value Reference Range Interpretation Comments MAGNESIUM (BEAKER) (test code = 2.1 mg/dL 1.6-2.6 627) BASIC METABOLIC [id number] 06:07:00 Test Item Value Reference Range Interpretation Comments SODIUM (BEAKER) 138 meq/L 136-145 (test code = 381) POTASSIUM (BEAKER) 4.2 meq/L 3.5-5.1 (test code = 379) CHLORIDE (BEAKER) 107 meq/L 98-107 (test code = 382) CO2 (BEAKER) (test 25 meq/L 22-29 code = 355) BLOOD UREA NITROGEN 9 mg/dL 7-21 (BEAKER) (test code = 354) CREATININE (BEAKER) 0.95 mg/dL 0.57-1.25 (test code = 358) GLUCOSE RANDOM 94 mg/dL 70-105 (BEAKER) (test code = 652) CALCIUM (BEAKER) 8.6 mg/dL 8.4-10.2 (test code = 697) EGFR (BEAKER) (test 76 mL/min/1.73 ESTIMA NORMAN GFR IS code = 1092) sq m NOT ACCURATE CREATININE CLEARANCE IN PREDICTING GLOMERULAR FILTRATION RATE . ESTIMATED GFR I S NOT APPLICABLE FOR DIALYSIS PATIEN TS. CBC W/PLT COUNT & AUTO [id number] 06:04:00 Test Item Value Reference Range Interpretation Comments WHITE BLOOD CELL COUNT (BEAKER) 5.3 K/ L 3.5-10.5 (test code = 775) RED BLOOD CELL COUNT (BEAKER) 3.16 M/ L 4.63-6.08 L (test code = 761) HEMOGLOBIN (BEAKER) (test code = 10.0 GM/DL 13.7-17.5 L 410) HEMATOCRIT (BEAKER) (test code = 31.4 % 40.1-51.0 L 411) MEAN CORPUSCULAR VOLUME (BEAKER) 99.4 fL 79.0-92.2 H (test code = 753) MEAN CORPUSCULAR HEMOGLOBIN 31.6 pg 25.7-32.2 (BEAKER) (test code = 751) MEAN CORPUSCULAR HEMOGLOBIN CONC 31.8 GM/DL 32.3-36.5 L (BEAKER) (test code = 752) RED CELL DISTRIBUTION WIDTH 12.6 % 11.6-14.4 (BEAKER) (test code = 412) PLATELET COUNT (BEAKER) (test 148 K/CU MM 150-450 L code = 756) MEAN PLATELET VOLUME (BEAKER) 9.8 fL 9.4-12.4 (test code = 754) NUCLEATED RED BLOOD CELLS 0 /100 WBC 0-0 (BEAKER) (test code = 413) NEUTROPHILS RELATIVE PERCENT 50 % (BEAKER) (test code = 429) LYMPHOCYTES RELATIVE PERCENT 34 % (BEAKER) (test code = 430) MONOCYTES RELATIVE PERCENT 12 % (BEAKER) (test code = 431) EOSINOPHILS RELATIVE PERCENT 4 % (BEAKER) (test code = 432) BASOPHILS RELATIVE PERCENT 1 % (BEAKER) (test code = 437) NEUTROPHILS ABSOLUTE COUNT 2.60 K/ L 1.78-5.38 (BEAKER) (test code = 670) LYMPHOCYTES ABSOLUTE COUNT 1.76 K/ L 1.32-3.57 (BEAKER) (test code = 414) MONOCYTES ABSOLUTE COUNT (BEAKER) 0.65 K/ L 0.30-0.82 (test code = 415) EOSINOPHILS ABSOLUTE COUNT 0.20 K/ L 0.04-0.54 (BEAKER) (test code = 416) BASOPHILS ABSOLUTE COUNT (BEAKER) 0.03 K/ L 0.01-0.08 (test code = 417) IMMATURE GRANULOCYTES-RELATIVE 0 % 0-1 PERCENT (BEAKER) (test code = 2801) [id number] 10:30:00 Test Item Value Reference Range Interpretation Comments MAGNESIUM (BEAKER) (test code = 1.9 mg/dL 1.6-2.6 627) CBC W/PLT COUNT & AUTO [id number] 07:07:00 Test Item Value Reference Range Interpretation Comments WHITE BLOOD CELL COUNT (BEAKER) 4.4 K/ L 3.5-10.5 (test code = 775) RED BLOOD CELL COUNT (BEAKER) 3.32 M/ L 4.63-6.08 L (test code = 761) HEMOGLOBIN (BEAKER) (test code = 10.6 GM/DL 13.7-17.5 L 410) HEMATOCRIT (BEAKER) (test code = 32.9 % 40.1-51.0 L 411) MEAN CORPUSCULAR VOLUME (BEAKER) 99.1 fL 79.0-92.2 H (test code = 753) MEAN CORPUSCULAR HEMOGLOBIN 31.9 pg 25.7-32.2 (BEAKER) (test code = 751) MEAN CORPUSCULAR HEMOGLOBIN CONC 32.2 GM/DL 32.3-36.5 L (BEAKER) (test code = 752) RED CELL DISTRIBUTION WIDTH 12.7 % 11.6-14.4 (BEAKER) (test code = 412) PLATELET COUNT (BEAKER) (test 145 K/CU MM 150-450 L code = 756) MEAN PLATELET VOLUME (BEAKER) 10.1 fL 9.4-12.4 (test code = 754) NUCLEATED RED BLOOD CELLS 0 /100 WBC 0-0 (BEAKER) (test code = 413) NEUTROPHILS RELATIVE PERCENT 40 % (BEAKER) (test code = 429) LYMPHOCYTES RELATIVE PERCENT 44 % (BEAKER) (test code = 430) MONOCYTES RELATIVE PERCENT 12 % (BEAKER) (test code = 431) EOSINOPHILS RELATIVE PERCENT 4 % (BEAKER) (test code = 432) BASOPHILS RELATIVE PERCENT 1 % (BEAKER) (test code = 437) NEUTROPHILS ABSOLUTE COUNT 1.74 K/ L 1.78-5.38 L (BEAKER) (test code = 670) LYMPHOCYTES ABSOLUTE COUNT 1.90 K/ L 1.32-3.57 (BEAKER) (test code = 414) MONOCYTES ABSOLUTE COUNT (BEAKER) 0.54 K/ L 0.30-0.82 (test code = 415) EOSINOPHILS ABSOLUTE COUNT 0.16 K/ L 0.04-0.54 (BEAKER) (test code = 416) BASOPHILS ABSOLUTE COUNT (BEAKER) 0.02 K/ L 0.01-0.08 (test code = 417) IMMATURE GRANULOCYTES-RELATIVE 0 % 0-1 PERCENT (BEAKER) (test code = 2801) BASIC METABOLIC [id number] 06:31:00 Test Item Value Reference Range Interpretation Comments SODIUM (BEAKER) 138 meq/L 136-145 (test code = 381) POTASSIUM (BEAKER) 3.7 meq/L 3.5-5.1 (test code = 379) CHLORIDE (BEAKER) 107 meq/L 98-107 (test code = 382) CO2 (BEAKER) (test 25 meq/L 22-29 code = 355) BLOOD UREA NITROGEN 9 mg/dL 7-21 (BEAKER) (test code = 354) CREATININE (BEAKER) 1.01 mg/dL 0.57-1.25 (test code = 358) GLUCOSE RANDOM 81 mg/dL 70-105 (BEAKER) (test code = 652) CALCIUM (BEAKER) 8.7 mg/dL 8.4-10.2 (test code = 697) EGFR (BEAKER) (test 71 mL/min/1.73 ESTIMA NORMAN GFR IS code = 1092) sq m NOT ACCURATE CREATININE CLEARANCE IN PREDICTING GLOMERULAR FILTRATION RATE . ESTIMATED GFR I S NOT APPLICABLE FOR DIALYSIS PATIEN TS. BASIC METABOLIC [id number] 06:27:00 Test Item Value Reference Range Interpretation Comments SODIUM (BEAKER) 139 meq/L 136-145 (test code = 381) POTASSIUM (BEAKER) 4.1 meq/L 3.5-5.1 (test code = 379) CHLORIDE (BEAKER) 106 meq/L 98-107 (test code = 382) CO2 (BEAKER) (test 26 meq/L 22-29 code = 355) BLOOD UREA NITROGEN 10 mg/dL 7-21 (BEAKER) (test code = 354) CREATININE (BEAKER) 0.98 mg/dL 0.57-1.25 (test code = 358) GLUCOSE RANDOM 78 mg/dL 70-105 (BEAKER) (test code = 652) CALCIUM (BEAKER) 9.5 mg/dL 8.4-10.2 (test code = 697) EGFR (BEAKER) (test mL/min/1.73 INSUFFIC IENT CLINICAL code = 1092) sq m DATA TO CALCULA TE ESTIMATED GFR. CBC W/PLT COUNT & AUTO [id number] 05:45:00 Test Item Value Reference Range Interpretation Comments WHITE BLOOD CELL COUNT (BEAKER) 4.5 K/ L 3.5-10.5 (test code = 775) RED BLOOD CELL COUNT (BEAKER) 3.71 M/ L 4.63-6.08 L (test code = 761) HEMOGLOBIN (BEAKER) (test code = 11.8 GM/DL 13.7-17.5 L 410) HEMATOCRIT (BEAKER) (test code = 36.0 % 40.1-51.0 L 411) MEAN CORPUSCULAR VOLUME (BEAKER) 97.0 fL 79.0-92.2 H (test code = 753) MEAN CORPUSCULAR HEMOGLOBIN 31.8 pg 25.7-32.2 (BEAKER) (test code = 751) MEAN CORPUSCULAR HEMOGLOBIN CONC 32.8 GM/DL 32.3-36.5 (BEAKER) (test code = 752) RED CELL DISTRIBUTION WIDTH 12.6 % 11.6-14.4 (BEAKER) (test code = 412) PLATELET COUNT (BEAKER) (test 170 K/CU MM 150-450 code = 756) MEAN PLATELET VOLUME (BEAKER) 9.5 fL 9.4-12.4 (test code = 754) NUCLEATED RED BLOOD CELLS 0 /100 WBC 0-0 (BEAKER) (test code = 413) NEUTROPHILS RELATIVE PERCENT 50 % (BEAKER) (test code = 429) LYMPHOCYTES RELATIVE PERCENT 37 % (BEAKER) (test code = 430) MONOCYTES RELATIVE PERCENT 10 % (BEAKER) (test code = 431) EOSINOPHILS RELATIVE PERCENT 3 % (BEAKER) (test code = 432) BASOPHILS RELATIVE PERCENT 0 % (BEAKER) (test code = 437) NEUTROPHILS ABSOLUTE COUNT 2.23 K/ L 1.78-5.38 (BEAKER) (test code = 670) LYMPHOCYTES ABSOLUTE COUNT 1.67 K/ L 1.32-3.57 (BEAKER) (test code = 414) MONOCYTES ABSOLUTE COUNT (BEAKER) 0.44 K/ L 0.30-0.82 (test code = 415) EOSINOPHILS ABSOLUTE COUNT 0.15 K/ L 0.04-0.54 (BEAKER) (test code = 416) BASOPHILS ABSOLUTE COUNT (BEAKER) 0.02 K/ L 0.01-0.08 (test code = 417) IMMATURE GRANULOCYTES-RELATIVE 0 % 0-1 PERCENT (BEAKER) (test code = 2801) CT, BRAIN, WITHOUT [id number] 23:42:00FINAL REPORT CT, BRAIN, WITHOUT CONTRAST CLINICAL [...] recommended for further characterization. Signed: Nick Gutierrez MDReport Verified Date/Time: 06/27/2018 23:42:40 Reading Location: [facility] C013 Neuro Reading Room URINALYSIS W/ REFLEX URINE [id number] 21:57:00 Test Item Value Reference Range Interpretation Comments COLOR (BEAKER) (test code = 470) Colorless CLARITY (BEAKER) (test code = 469) Clear SPECIFIC GRAVITY UA (BEAKER) (test 1.001 1.001-1.035 code = 468) PH UA (BEAKER) (test code = 467) 7.5 5.0-8.0 PROTEIN UA (BEAKER) (test code = Negative Negative 464) GLUCOSE UA (BEAKER) (test code = Negative Negative 365) KETONES UA (BEAKER) (test code = Negative Negative 371) BILIRUBIN UA (BEAKER) (test code = Negative Negative 462) BLOOD UA (BEAKER) (test code = 461) Trace Negative A NITRITE UA (BEAKER) (test code = Negative Negative 465) LEUKOCYTE ESTERASE UA (BEAKER) Negative Negative (test code = 466) UROBILINOGEN UA (BEAKER) (test code 0.2 mg/dL 0.2-1.0 = 463) RBC UA (BEAKER) (test code = 519) 1 /HPF WBC UA (BEAKER) (test code = 520) < /HPF SOURCE(BEAKER) (test code = 2795) RAD, CHEST, 1 VIEW, NON [id number] 21:14:00Reason for exam:->LOSS OF CONSCIOUSNESSShould this be performed at the bedside?->YesFINAL REPORT INDICATION: LOSS OF CONSCIOUSNESS COMPARISON: None TECHNIQUE: Single frontal view of the chest. FINDINGS: Lungs and pleura: Clear lungs. No effusion.Heart and mediastinum: Normal heart size. Unremarkable mediastinal contours.Osseous structures: No acute abnormality.Other: None. IMPRESSION: No acute intrathoracic abnormality. Signed: Nick Gutierrez MDReport Verified Date/Time: 06/27/2018 21:14:39 Reading Location: [address] Neuro Reading Room [id number] 20:36:00 Test Item Value Reference Range Interpretation Comments MAGNESIUM (BEAKER) (test code = 2.0 mg/dL 1.6-2.6 627) [id number] 20:36:00 Test Item Value Reference Range Interpretation Comments PHOSPHORUS (BEAKER) (test code = 2.9 mg/dL 2.3-4.7 604) TROPONIN [id number] 19:30:00 Test Item Value Reference Range Interpretation Comments TROPONIN I (BEAKER) (test code = [...] 2018-06-27 19:30:00 Test Item Value Reference Range Interpretation Comments B-TYPE NATRIURETIC PEPTIDE (BEAKER) 94 pg/mL 0-100 (test code = 700) BASIC METABOLIC [id number] 19:28:00 Test Item Value Reference Range Interpretation Comments SODIUM (BEAKER) 138 meq/L 136-145 (test code = 381) POTASSIUM (BEAKER) 4.0 meq/L 3.5-5.1 (test code = 379) CHLORIDE (BEAKER) 103 meq/L 98-107 (test code = 382) CO2 (BEAKER) (test 29 meq/L 22-29 code = 355) BLOOD UREA NITROGEN 15 mg/dL 7-21 (BEAKER) (test code = 354) CREATININE (BEAKER) 1.15 mg/dL 0.57-1.25 (test code = 358) GLUCOSE RANDOM 117 mg/dL 70-105 H (BEAKER) (test code = 652) CALCIUM (BEAKER) 9.0 mg/dL 8.4-10.2 (test code = 697) EGFR (BEAKER) (test mL/min/1.73 INSUFFIC IENT CLINICAL code = 1092) sq m DATA TO CALCULA TE ESTIMATED GFR. [id number] 19:24:00 Test Item Value Reference Range Interpretation Comments LIPASE (BEAKER) (test code = 749) 229 U/L 8-78 H HEPATIC FUNCTION [id number] 19:24:00 Test Item Value Reference Range Interpretation Comments TOTAL PROTEIN (BEAKER) (test code = 6.0 gm/dL 6.0-8.3 770) ALBUMIN (BEAKER) (test code = 1145) 3.7 g/dL 3.5-5.0 BILIRUBIN TOTAL (BEAKER) (test code 0.5 mg/dL 0.2-1.2 = 377) BILIRUBIN DIRECT (BEAKER) (test 0.3 mg/dL 0.1-0.5 code = 706) ALKALINE PHOSPHATASE (BEAKER) (test 78 U/L 40-150 code = 346) AST (SGOT) (BEAKER) (test code = 32 U/L 5-34 353) ALT (SGPT) (BEAKER) (test code = 6 U/L 6-55 347) CBC W/PLT COUNT & AUTO [id number] 19:05:00 Test Item Value Reference Range Interpretation Comments WHITE BLOOD CELL COUNT (BEAKER) 4.6 K/ L 3.5-10.5 (test code = 775) RED BLOOD CELL COUNT (BEAKER) 3.38 M/ L 4.63-6.08 L (test code = 761) HEMOGLOBIN (BEAKER) (test code = 10.8 GM/DL 13.7-17.5 L 410) HEMATOCRIT (BEAKER) (test code = 33.4 % 40.1-51.0 L 411) MEAN CORPUSCULAR VOLUME (BEAKER) 98.8 fL 79.0-92.2 H (test code = 753) MEAN CORPUSCULAR HEMOGLOBIN 32.0 pg 25.7-32.2 (BEAKER) (test code = 751) MEAN CORPUSCULAR HEMOGLOBIN CONC 32.3 GM/DL 32.3-36.5 (BEAKER) (test code = 752) RED CELL DISTRIBUTION WIDTH 12.8 % 11.6-14.4 (BEAKER) (test code = 412) PLATELET COUNT (BEAKER) (test 160 K/CU MM 150-450 code = 756) MEAN PLATELET VOLUME (BEAKER) 9.2 fL 9.4-12.4 L (test code = 754) NUCLEATED RED BLOOD CELLS 0 /100 WBC 0-0 (BEAKER) (test code = 413) NEUTROPHILS RELATIVE PERCENT 52 % (BEAKER) (test code = 429) LYMPHOCYTES RELATIVE PERCENT 35 % (BEAKER) (test code = 430) MONOCYTES RELATIVE PERCENT 11 % (BEAKER) (test code = 431) EOSINOPHILS RELATIVE PERCENT 3 % (BEAKER) (test code = 432) BASOPHILS RELATIVE PERCENT 0 % (BEAKER) (test code = 437) NEUTROPHILS ABSOLUTE COUNT 2.34 K/ L 1.78-5.38 (BEAKER) (test code = 670) LYMPHOCYTES ABSOLUTE COUNT 1.57 K/ L 1.32-3.57 (BEAKER) (test code = 414) MONOCYTES ABSOLUTE COUNT (BEAKER) 0.48 K/ L 0.30-0.82 (test code = 415) EOSINOPHILS ABSOLUTE COUNT 0.14 K/ L 0.04-0.54 (BEAKER) (test code = 416) BASOPHILS ABSOLUTE COUNT (BEAKER) 0.02 K/ L 0.01-0.08 (test code = 417) IMMATURE GRANULOCYTES-RELATIVE 0 % 0-1 PERCENT (BEAKER) (test code = 8801)
--- OUTSIDE RECORDS SUMMARY | 2020-02-09 09:42 | XMS REPORT | Clinical Summary ---
:1940 Author Organization [facility] Address [address] [place] [address] Care Team Providers Name Role Phone Rafa [...] tablet by mouth 2 (two) times daily. Active Problems Problem Noted Date Syncope, unspecified [...] Assigned at Date Recorded Not on file Last Filed Vital Signs Not on file Plan of Treatment Health Maintenance Due Date Last Done Comments PNEUMOCOCCAL 65+ YRS (1 of 1 - [id number]) 2003 MEDICARE ANNUAL WELLNESS (YEAR 2 or FIRST YEAR if no 04/30/2018 IPPE) INFLUENZA VACCINE (#1) 2019 Results Not on fileafter 02/08/2019 Insurance Payer Benefit Plan / Subscriber ID Effective Dates Phone Addre ss Type Group [facility] - [employer]/MEDICARE [id number] 2018-Present MEDICARE MGD CARE COMPLETE Advance Directives For more information, please contact: [phone] Type Date Recorded Patient Nursing Administrator Explanati on Power of [employer] 06/27/2018 12:00 AM Code Status Date Activated Date Inactivated Comments Full Code 06/27/2018 10:12 PM 07/01/2018 6:29 PM This code status was determined by: Patient
--- NOTE | 2020-02-09 09:53 | RAD REPORT ---
EXAM DESCRIPTION: CT - Head Brain Wo Cont - 02/09/2020 9:40 am CLINICAL HISTORY: syncope, possible head injury Trauma, head injury COMPARISON: Head Brain Wo Cont dated 09/24/2018; Head Brain Wo Cont dated 02/04/2018 TECHNIQUE: All CT scans are performed using dose optimization technique as appropriate and may inclu de automated exposure control or mA/KV adjustment according to patient size. FINDINGS: No intracranial hemorrhage, hydrocephalus or extra-axial fluid collection.No areas of brai n edema or evidence of midline shift. Fluid is present both mastoid air cells. Paranasal sinuses are clear. The calvarium is intact. IMPRESSION: No acute intracranial abnormality. Mild fluid is seen in both mastoid air cells.
[2020-02-09 09:59] LABS: BUN Blood Urea Nitrogen 28 mg/dL (7-18); Bicarbonate 27 mmol/L (21-32); Creatine Phosphokinase 71 U/L (39-308); Glucose Level 125 mg/dL (74-106); Potassium 4.9 mmol/L (3.5-5.1); Sodium Level 143 mmol/L (136-145); Troponin (Emerg Dept Use Only) < 0.02 ng/mL (0.0-0.045)
[2020-02-09 11:17] LABS: Urine Bacteria <20 /HPF (NONE SEEN); Urine RBC NONE SEEN /HPF (NONE SEEN)
[2020-02-09 11:18] LABS: Urine Culture Reflex Order NOT NEEDED
--- NOTE | 2020-02-09 11:50 | ER ---
Nurse's Notes [facility] Name: Sumanth Louis Age: 79 yrs Sex: Male : 1940 Arrival Date: 02/09/2020 Time: 09:03 Bed 3 Private MD: Diagnosis: Orthostatic hypotension;Syncope and collapse;Hypothermia Presentation: 02/08 09:03 Chief complaint: EMS states: Caregiver went to go check on pt around 8am and noticed pt aa5 altered, caregiver also reported to EMS unwitnessed fall walking to restroom today. Pt's family reported to EMS pt is normally able to follow commands and speech is normally hard to understand. Pt currently A\\T\\Ox none but able to follow commands, pt states "I am cold". 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 09:03 Coronavirus screen: Client denies travel out of the [place] in the last 14 days. At this aa5 time, the client does not indicate any symptoms associated with coronavirus-19. Ebola Screen: Patient negative for fever greater than or equal to 101.5 degrees Fahrenheit, and additional compatible Ebola Virus Disease symptoms. Initial Sepsis Screen: Does the patient meet any 2 criteria? No. Patient's initial sepsis screen is negative. Does the patient have a suspected source of infection? No. Patient's initial sepsis screen is negative. Risk Assessment: Do you want to hurt yourself or someone else? Unable to obtain. Onset of symptoms was February 09, 2020. 09:03 Acuity: IRINA 2 aa5 09:03 Method Of Arrival: EMS: [facility] aa5 09:03 Care prior to arrival: Medication(s) given: Normal saline infusion, 300mls bolus IV aa5 initiated. 20 GA, in the right forearm, Glucose check: 148. Historical: - Allergies: 09:03 No Known Allergies; aa5 - Home Meds: 09:03 Aspirin Oral [Active]; atorvastatin oral oral [Active]; memantine oral oral [Active]; aa5 13:00 carbidopa-levodopa 25-250 mg Oral tab 1 tab 4 times per day [Active]; aa5 - PMHx: 09:03 Anemia; Anxiety; Bilateral deafness; Bilateral degeneration of macula; BPH; CHF; aa5 Dementia; chronic pain syndrome; Parkinsons; Pancreatitis; Hernia; Inguinal hernia R; osteoarthritis; Orthostatic hypotension; 09:03 CVA; aa5 13:00 Difficulty swallowing; aa5 - PSHx: 09:03 Appendectomy; aa5 - Immunization history:: Adult Immunizations unknown. - Social history:: Smoking status: unknown. - Family history:: not pertinent. - Hospitalizations: : No recent hospitalization is reported. Screenin:15 Abuse screen: No signs of abuse noted. Nutritional screening: No deficits noted. aa5 Tuberculosis screening: No symptoms or risk factors identified. Fall Risk Fall in past 12 months (25 points). IV access (20 points). Mental Status- Overestimates/Forgets Limitations (15 pts.). Total Han Fall Scale indicates High Risk Score (45 or more points). Fall prevention measures have been instituted. Side Rails Up X 2 Placed Close to Nursing Station. Assessment: 09:03 General: Appears comfortable, Behavior is calm, cooperative. Pain: Denies pain. Neuro: aa5 Level of Consciousness is awake, obeys commands, confused, Oriented to none Automation Technologist are weak bilaterally Moves all extremities. Speech difficult to understand. Cardiovascular: Heart tones S1 S2 present Rhythm is regular. Respiratory: Airway is patent Respiratory effort is even, unlabored, Respiratory pattern is regular, symmetrical. GI: Abdomen is flat, non-distended. : No signs and/or symptoms were reported regarding the genitourinary system. EENT: No signs and/or symptoms were reported regarding the EENT system. Derm: Skin is pink, warm \\T\\ dry. Musculoskeletal: Range of motion: intact in all extremities. 09:05 Reassessment: Warm blankets and pillow provided. . aa5 09:30 Reassessment: Pt to CT . aa5 10:30 Neuro: Level of Consciousness is awake, obeys commands, confused, Oriented to person. aa5 Respiratory: Airway is patent Respiratory effort is even, unlabored, Respiratory pattern is regular, symmetrical. Derm: Skin is dry, Skin is normal, Skin temperature is cool. 10:30 Reassessment: Extra warm blankets provided. . aa5 11:00 Reassessment: Pt's daughter at bedside, pt speaking more clearly now that daughter is aa5 at bedside. . 11:00 Neuro: Level of Consciousness is awake, obeys commands, confused, Oriented to person. aa5 Respiratory: Airway is patent Respiratory effort is even, unlabored, Respiratory pattern is regular, symmetrical. Derm: Skin is pink, warm \\T\\ dry. 11:15 Reassessment: Vika hugger blanket on low setting per MD.. aa5 11:15 Reassessment: Pt cleaned of small amount of brown stool, clean brief applied. . aa5 12:00 Reassessment: Pt resting in bed with eyes closed, repositioned in bed. Equal and aa5 unlabored, respirations. Skin is pink/warm/dry. . 12:00 Neuro: Level of Consciousness is obeys commands, confused, Oriented to person. aa5 13:20 Reassessment: Pt repositioned in bed to right side. Pt's daughter remains at bedside. aa5 Awaiting room assignment. . Vital Signs: 09:03 BP 150 / 64; Pulse 56; Resp 18 S; Temp 96.4(A); Pulse Ox 100% on R/A; aa5 09:15 BP 155 / 86; Pulse 58; Resp 16 S; Pulse Ox 99% on R/A; aa5 09:30 BP 137 / 48; Pulse 50; Resp 16 S; Pulse Ox 100% on R/A; aa5 09:45 BP 134 / 56; Pulse 51; Resp 14 S; Pulse Ox 100% on R/A; aa5 10:30 BP 146 / 56; Pulse 55; Resp 15; Pulse Ox 99% on R/A; mt 10:30 Temp 94.0(O); aa5 10:45 Temp 94.1(C); aa5 11:15 Temp 95.1(C); aa5 11:45 BP 156 / 70; Pulse 58; Resp 19; Pulse Ox 100% ; rb1 12:45 BP 161 / 67; Pulse 58; Resp 8; Pulse Ox 100% ; rb1 13:00 BP 141 / 53; Pulse 61; Resp 16 S; Temp 96.3(C); Pulse Ox 100% on R/A; aa5 13:30 BP 135 / 61; Pulse 61; Resp 18 S; Temp 96.5(C); Pulse Ox 100% on R/A; aa5 10:30 MD notified of lowered temperature. aa5 10:45 MD notified of confirmed low temperature, VO to collect blood cultures and lactate. aa5 ED Course: 09:03 Patient arrived in ED. rn 09:03 Arvin Armendariz MD is Attending Physician. rn 09:03 Arm band placed on Patient placed in an exam room, on a stretcher. aa5 09:03 Patient has correct armband on for positive identification. Placed in gown. Bed in low aa5 position. Call light in reach. Side rails up X2. ekg monitor on. Pulse ox on. NIBP on. 09:10 Shima Whitney, RN is Primary Nurse. aa5 09:15 Initial lab(s) drawn, by hi, sent to lab. aa5 09:40 CT Head Brain wo Cont In Process Unspecified. EDMS 09:41 Triage completed. aa5 10:40 Brower cath inserted, using sterile technique, 16 Fr., by hi, balloon inflated, to aa5 gravity drainage, urine specimen collected. Patient tolerated well. 10:45 First set of blood cultures drawn by me. aa5 10:56 Second set of blood cultures drawn by me. Inserted saline lock: 20 gauge in left aa5 forearm, using aseptic technique. 11:05 COVID-19 swab collected and sent to lab. aa5 11:46 Feliberto Vivas DO is Hospitalizing Provider. rn 13:45 No provider procedures requiring assistance completed. Patient admitted, IV remains in aa5 place. Administered Medications: 09:15 Drug: NS 0.9% 500 ml Route: IV; Rate: bolus; Site: right forearm; aa5 Outcome: 11:49 Decision to Hospitalize by Provider. rn 13:45 Admitted to Tele accompanied by tech, via stretcher, with chart, Report called to aa5 SOCORRO Dominguez 13:45 Condition: stable 13:45 Discharge instructions given to Pt and pt's daughter Instructed on the need for admit. 13:50 Patient left the ED. aa5 Signatures: Dispatcher [employer] EDMS Arvin Armendariz MD MD rn Calderon, Audri, RN RN aa Megha Browning RN RN rb1 Thompson, Moriah mn Corrections: (The following items were deleted from the chart) 09:48 09:03 Chief complaint: EMS states: Caregiver went to go check on pt around 8am and aa5 noticed pt altered, caregiver also reported to EMS unwitnessed fall walking to restroom today. Pt's family reported to EMS pt is normally able to follow commands and speech is normally hard to understand. Pt currently A\\T\\Ox none but able to follow commands, pt states "I am cold" aa5 11:26 10:45 Temp 94.1F Catheter; aa5 aa5 14: 14:13 Patient left the ED. aa5 aa5 14: 10:30 Derm: Skin is pink, warm \\T\\ dry. aa5 aa5
--- NOTE | 2020-02-09 11:50 | EDPHYS ---
Physician Documentation [facility] Name: Sumanth Louis Age: 79 yrs Sex: Male : 1940 Arrival Date: 02/09/2020 Time: 09:03 Bed 3 Private MD: ED Physician Arvin Armendariz HPI: 02/08 11:30 This 79 yrs old Male presents to ER via EMS with complaints of Altered Mental rn Status. 11:30 The patient presents with decreased responsiveness. Onset: The symptoms/episode rn began/occurred at an unknown time. Possible causes: unknown. Current symptoms: In the emergency department the patient's symptoms are unchanged from the initial presentation. The patient has experienced similar episodes in the past. Family called 911 after finding him on floor, likely after syncopal episode, no obvious trauma, thinks hit head, + stroke and family reports near baseline. + recurrent falls and syncope, + hx of orthostatic hypotension, no fever or recent illness. EMS reports several low BP readings as low as 50s systolic, started fluids with improvement. . Historical: - Allergies: 09:03 No Known Allergies; aa5 - Home Meds: 09:03 Aspirin Oral [Active]; atorvastatin oral oral [Active]; memantine oral oral [Active]; aa5 13:00 carbidopa-levodopa 25-250 mg Oral tab 1 tab 4 times per day [Active]; aa5 - PMHx: 09:03 Anemia; Anxiety; Bilateral deafness; Bilateral degeneration of macula; BPH; CHF; aa5 Dementia; chronic pain syndrome; Parkinsons; Pancreatitis; Hernia; Inguinal hernia R; osteoarthritis; Orthostatic hypotension; 09:03 CVA; aa5 13:00 Difficulty swallowing; aa5 - PSHx: 09:03 Appendectomy; aa5 - Immunization history:: Adult Immunizations unknown. - Social history:: Smoking status: unknown. - Family history:: not pertinent. - Hospitalizations: : No recent hospitalization is reported. ROS: 11:30 Constitutional: Negative for fever, chills, and weight loss, Eyes: Negative for injury, rn pain, redness, and discharge, Cardiovascular: Negative for chest pain, palpitations, and edema, Respiratory: Negative for shortness of breath, cough, wheezing, and pleuritic chest pain, Abdomen/GI: Negative for abdominal pain, nausea, vomiting, diarrhea, and constipation, MS/Extremity: Negative for injury and deformity, Skin: Negative for injury, rash, and discoloration, Neuro: Negative for headache, numbness, tingling, and seizure. Exam: 11:30 Constitutional: This is a well developed, patient who is awake, alert, and in no acute rn distress. Head/Face: Normocephalic, atraumatic. ENT: dry MM Neck: No vertebral point tenderness. No Meningismus. Cardiovascular: Bradycardic, regular Respiratory: No increased work of breathing, no retractions or nasal flaring. Abdomen/GI: Soft, non-tender MS/ Extremity: Pulses equal, no cyanosis. Neurovascular intact. Full, normal range of motion. Equal circumference. Neuro: Awake and alert Vital Signs: 09:03 BP 150 / 64; Pulse 56; Resp 18 S; Temp 96.4(A); Pulse Ox 100% on R/A; aa5 09:15 BP 155 / 86; Pulse 58; Resp 16 S; Pulse Ox 99% on R/A; aa5 09:30 BP 137 / 48; Pulse 50; Resp 16 S; Pulse Ox 100% on R/A; aa5 09:45 BP 134 / 56; Pulse 51; Resp 14 S; Pulse Ox 100% on R/A; aa5 10:30 BP 146 / 56; Pulse 55; Resp 15; Pulse Ox 99% on R/A; mt 10:30 Temp 94.0(O); aa5 10:45 Temp 94.1(C); aa5 11:15 Temp 95.1(C); aa5 11:45 BP 156 / 70; Pulse 58; Resp 19; Pulse Ox 100% ; rb1 12:45 BP 161 / 67; Pulse 58; Resp 8; Pulse Ox 100% ; rb1 13:00 BP 141 / 53; Pulse 61; Resp 16 S; Temp 96.3(C); Pulse Ox 100% on R/A; aa5 13:30 BP 135 / 61; Pulse 61; Resp 18 S; Temp 96.5(C); Pulse Ox 100% on R/A; aa5 10:30 MD notified of lowered temperature. aa5 10:45 MD notified of confirmed low temperature, VO to collect blood cultures and lactate. aa5 MDM: 09:03 Patient medically screened. rn 11:41 Differential Diagnosis: CVA, electrolyte abnormality, intracranial bleed, TIA, UTI, rn volume depletion. Data reviewed: vital signs, nurses notes, lab test result(s), EKG, radiologic studies, CT scan, and as a result, I will admit patient. Counseling: I had a detailed discussion with the patient and/or guardian regarding: the historical points, exam findings, and any diagnostic results supporting the discharge/admit diagnosis, lab results, radiology results, the need for further work-up and treatment in the hospital. Response to treatment: the patient's symptoms have mildly improved after treatment, and as a result, I will admit patient. Admission orders: after a detailed discussion of the patient's condition and case, the admit orders are written by me. ED course: BP improved since arrival, no acute findings on ct head, neg UA, still hypothermic, unclear how long he was on floor. Will obs to Dr. Vivas. . 02/08 09:05 Order name: CBC with Diff; Complete Time: 10:11 rn 02/08 09:05 Order name: Basic Metabolic Panel; Complete Time: 10: rn 02/08 09:05 Order name: Urine Culture rn 02/08 09:05 Order name: Urine Microscopic Only; Complete Time: 11:39 rn 02/08 09:05 Order name: CK; Complete Time: 10:11 rn 02/08 09:05 Order name: Procalcitonin; Complete Time: 10:11 rn 02/08 09:05 Order name: CT Head Brain wo Cont; Complete Time: 10:11 rn 02/08 09:05 Order name: Troponin (emerg Dept Use Only); Complete Time: 10:11 rn 02/08 10:45 Order name: Blood Culture Adult (2) rn 02/08 10:45 Order name: Lactate; Complete Time: 11:39 rn 02/08 11:02 Order name: Urine Dipstick--Ancillary (enter results) bd 02/08 11:54 Order name: SARS-COV-2 RT PCR EDMS 02/08 09:05 Order name: IV Start; Complete Time: 09:18 rn 02/08 09:05 Order name: Urine Dipstick-Ancillary (obtain specimen); Complete Time: 10:44 rn 02/08 09:05 Order name: EKG; Complete Time: 09:06 rn 02/08 09:05 Order name: EKG - Nurse/Tech; Complete Time: 09:18 rn 02/08 11:24 Order name: Leonarda: VO received at 1030; Complete Time: 11:24 aa5 02/08 13:03 Order name: Social Service Consult EDAL 02/08 13:20 Order name: Diet Heart Healthy; Complete Time: 13:20 aa5 Administered Medications: 09:15 Drug: NS 0.9% 500 ml Route: IV; Rate: bolus; Site: right forearm; aa5 Disposition: 02/09/20 11:49 Hospitalization ordered by Feliberto Vivas for Observation. Preliminary diagnosis are Orthostatic hypotension, Syncope and collapse, Hypothermia. - Bed requested for Telemetry/MedSurg (observation). - Status is Observation. aa5 - Condition is Stable. - Problem is new. - Symptoms have improved. Signatures: Dispatcher [employer] [facility] Elyse Hernandez RN RN dw Nieto, Roman, MD MD rn Calderon, Audri, RN RN aa5 Corrections: (The following items were deleted from the chart) 11:54 10:45 CORONAVIRUS+MR.LAB.BRZ ordered. [facility] EDAL 13:30 11:49 Hospitalization Ordered by Feliberto Vivas DO for Observation. Preliminary dw diagnosis is Orthostatic hypotension; Syncope and collapse; Hypothermia. Bed requested for Telemetry/MedSurg (observation). Status is Observation. Condition is Stable. Problem is new. Symptoms have improved. rn :13 13:30 02/09/2020 11:49 Hospitalization Ordered by Feliberto Vivas DO for Observation. aa5 Preliminary diagnosis is Orthostatic hypotension; Syncope and collapse; Hypothermia. Bed requested for Telemetry/MedSurg (observation). Status is Observation. Condition is Stable. Problem is new. Symptoms have improved. dw
--- NOTE | 2020-02-09 12:53 | P.HP ---
Certification for Inpatient Patient admitted to: Observation With expected LOS: <2 Midnights Patient will require the following post-hospital care: Home Health Services Practitioner: I am a practitioner with admitting privileges, knowledge of patient current condition, hospital course, and medical plan of care. Services: Services provided to patient in accordance with Admission requirements found in Title 42 Section 412.3 of the Code of Federal Regulations Patient History Date of Service: 02/09/20 Primary Care Provider: Dr. Barnes; Neurology-Dr. Grimes Reason for admission: Hypotension, altered mental status History of Present Illness: 79-year-old male with history of Parkinson's hypertension, orthostatic hypotension, and hyperlipidemia. Patient was brought in by EMS due to altered mental status and hypotension. Patient apparently had been falling at home. EMS was called after a provider noted that he was on the ground. It is unclear how long he was on the ground. Patient had some confusion. Patient lives at home but receives caregiver services and looked after by his daughter. Patient denied any chest pain, shortness of breath. There is no mention of fever, cough. EMS report shows blood pressures around 50 systolic. Patient was given IV fluids in route. Upon further evaluation in the emergency room. Blood pressure much improved and stabilized. In the ER patient remained on IV fluids. Blood pressure now stable. Urinalysis unremarkable. Lactic acid unremarkable. Pro calcitonin unremarkable. Troponin unremarkable. CK unremarkable. CT head unremarkable. White count 3.9, hemoglobin 11.4. Potassium 4.9, sodium 143. BN of 28, creatinine 1.41 with a GFR 48. Glucose 125. COVID test pending. Patient was found to be hypothermic with a core temperature of 95. Patient was placed on Bear Hugger warmer. Patient admitted for further evaluation and observation. Patient appears stable in the emergency room. Daughter at bedside. Daughter reports patient has been falling a lot. Patient with underlying history of Parkinson's and dementia. It is been getting more difficult to take care of the patient. Patient currently lives alone with caregiver services. Daughter is looking to sending the patient in to a long-term care facility but this process has been difficult. Allergies No Known Allergies Allergy (Verified 06/07/19 21:10) Home medications list reviewed: Yes Home Medications: Aspirin [Aspir-Low] 1 tab PO DAILY 06/08/19 Atorvastatin Calcium [Lipitor*] 0.5 tab PO BEDTIME 06/08/19 Carbidopa/Levodopa [Carbidopa-Levo 25-250 mg Odt] 1 tab PO QID 06/08/19 Midodrine HCl 2.5 mg PO TID 06/08/19 Mirtazapine [Remeron*] 15 mg PO BEDTIME 06/08/19 Mv-Mins/Folic/Lycopene/Ginkgo [One Daily Men's 50+ Tablet] 1 tab PO DAILY 06/08/19 Cholecalciferol (Vitamin D3) [Vitamin D 1000 Iu Tab*] 2,000 unit PO DAILY #30 tab 06/16/19 Memantine HCl [Namenda] 1 tab PO BREAKFAST 09/05/19 Memantine HCl [Namenda] 1 tab PO LUNCH 09/05/19 Polyethylene Glycol 3350 [Miralax] 17 gm PO DAILY 09/05/19 - Past Medical/Surgical History Diabetic: No -: Parkinson's -: Dementia likely vascular -: Macular degeneration -: 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 He is . Daughter has medical power of estimator project manager. - Family History Family History: Reviewed- Non-Contributory - Social History Smoking Status: Never smoker Alcohol use: No CD- Drugs: No Caffeine use: Yes Place of Residence: Home Review of Systems General: Weakness, Malaise, As per HPI Eyes: Unremarkable ENT: Unremarkable Respiratory: Unremarkable Cardiovascular: Unremarkable Gastrointestinal: Unremarkable Genitourinary: Unremarkable Musculoskeletal: Unremarkable Integumentary: Unremarkable Neurological: As per HPI Lymphatics: Unremarkable Physical Examination - Physical Exam General: Alert, In no apparent distress, Cooperative, Demented (Patient with underlying dementia but appropriate and cooperative.) HEENT: Atraumatic, Normocephalic, Other (Dry mucous membranes) Neck: Supple Respiratory: Clear to auscultation bilaterally, Normal air movement Cardiovascular: Normal pulses, Regular rate/rhythm Gastrointestinal: Normal bowel sounds, Soft and benign, Non-distended, No tenderness, No masses, No rebound, No guarding Musculoskeletal: No erythema, No tenderness, No warmth Integumentary: No tenderness/swelling, No erythema, No warmth, No cyanosis Neurological: Normal speech, Normal strength at 5/5 x4 extr, Normal tone, Dementia - Studies Laboratory Data (last 24 hrs) 02/09/20 09:15: Sodium 143, Potassium 4.9, BUN 28 H, Creatinine 1.41 H, Glucose 125 H 02/09/20 09:15: WBC 3.9 L, Hgb 11.4 L, Hct 33.6 L, Plt Count 138 L Assessment and Plan - Plan Impression: Fall with altered mental status likely secondary to orthostatic hypotension complicated with dehydration, hypothermia and dementia Acute on chronic renal disease stage III with dehydration Vascular dementia Parkinson's Hyperlipidemia Hypertension History of falls Plan: Fall with altered mental status likely secondary to orthostatic hypotension and metabolic encephalopathy complicated with dehydration, hypothermia and dementia: Patient will be admitted for further evaluation. Patient received IV fluid bolus in the emergency room. Blood pressure now stable. Will continue with IV fluids. Will monitor electrolytes closely. Electrolyte protocol in place. Will restart his midodrine. Will monitor blood pressure closely. Will have physical therapy assess ambulation along with occupational therapy. Patient on bear hugger warmer. Will wean off. No evidence of infection at this time. Will monitor closely. Will verify and restart his home medication. Will monitor telemetry and cardiac enzymes. Will obtain echocardiogram and carotid Doppler to further evaluate. Will consult Nephrology and Neurology who sees the patient. Case discussed in detail with daughter. Advanced directives and advanced care planning address in detail. Patient is do not resuscitate. Daughter is trying to get him to a wardrobe specialist care facility. This has been difficult. Probably at this time will pursue home health and physical therapy at discharge with increased hrs of caregiver services as well. Will contact social professionals to help in this process. DVT prophylaxis in place. Will continue to reassess. Anticipate discharge as early as tomorrow if patient stable. Advanced care planning-30 min Acute on chronic renal disease stage III with dehydration: Continue IV fluids. Will need to obtain a restart home medication. Will consult Nephrology to further evaluate. Vascular dementia: This appears stable this time. CT scan unremarkable. MRI not available at this time. This was discussed with the daughter. Will need to restart home medication. Parkinson's: Will need to obtain and restart home medication. Hyperlipidemia: Will check fasting lipid panel. Restart home medication. Hypertension: Will hold blood pressure medication at this time. History of falls: Physical therapy and occupational therapy to evaluate. Discharge Plan: Home (with HH/PT and caregiver services) Plan to discharge in: 24 Hours - Advance Directives Does patient have a Living Will: No Does patient have a Durable POA for Healthcare: Yes - Code Status/Comfort Care Code Status Assessed: Yes (Patient is do not resuscitate) Time Spent Managing Pts Care (In Minutes): 55
[2020-02-09] MEDS ORDERED: ONDANSETRON 4 MG/2 ML VIAL IV PRN (13:38)
[2020-02-09 13:58] LABS: Urine Blood NEGATIVE (NEG); Urine Glucose NEGATIVE (NEG); Urine Protein NEGATIVE (NEG); Urine Specific Gravity 1.025 (1.005-1.030); Urine pH 6.5 (5.0-7.0)
[2020-02-09] MEDS: MIDODRINE HCL 5 MG TABLET PO SCH ×2 (14:00→20:19)
[2020-02-09] MEDS: NA CHLORIDE 0.9% 1,000 ML IV SCH (14:19)
[2020-02-09 14:24] VITALS: BMI 22.4
[2020-02-09 16:18] LABS: Urine Appearance CLEAR; Urine Bilirubin NEGATIVE (NEG); Urine Blood NEGATIVE (NEG); Urine Color YELLOW; Urine Glucose NEGATIVE (NEG); Urine Protein NEGATIVE (NEG); Urine Urobilinogen 0.2 mg/dL (0.2-1.0)
[2020-02-09 16:37] LABS: Urine Microscopic Reflex ORDER UMIC
[2020-02-09 16:38] LABS: CKMB Creatine Kinase MB 1.6 ng/mL (0.3-3.6); Creatine Phosphokinase 76 U/L (39-308); Troponin I < 0.02 ng/mL (0.0-0.045)
[2020-02-09 17:08] LABS: Urine Bacteria <20 /HPF (NONE SEEN); Urine Culture Reflex Order NOT NEEDED; Urine RBC <5 /HPF (NONE SEEN)
[2020-02-09] MEDS: ATORVASTATIN 40 MG TAB PO SCH (20:19)
--- NOTE | 2020-02-09 21:13 | CON ---
Date of Consultation: 02/09/2020 Reason For Consultation: Syncope. History Of Present Illness: This is an 79-year-old gentleman with long-standing Parkinson's disease with dementia and orthostatic hypotension. He has a rather complex social history and that he is sti ll , but he is essentially estranged from his and his daughter is his [id number] i n managing his affairs and he is living by himself in an apartment here in [place]. He has not been doing well for quite some time and that trend continues. He was at home and he fell going to [facility] bathroom. EMS was summoned and his blood pressure was 90/60 and then 50/30. He was brought to the Emergency Department, where he was given fluids. He was also noted to be hypothermic with a tempera ture of [address] documented in the ER. CT scan of the brain was unremarkable. Labs demonstrates mild anem ia, hemoglobin 1.4, white count 3.9, creatinine 1.4. COVID negative. The patient is normally on mid odrine for the blood pressure and it has been a little bit of a balancing act because he had some kalpesh y significant leg edema on higher doses of the midodrine. The Parkinson's is reasonably well control led. He is on Namenda for the memory issue as he has had problems with syncope in the past and we we re concerned that cholinesterase inhibitors could worsen bradyarrhythmia. The patient is at his base line currently. Consultation was requested. Past Medical History: Hyperlipidemia as well. Medications: Namenda, Lipitor, Remeron, midodrine, Sinemet, and midodrine has been increased with ca veats as alluded to. Social History: The patient is living alone. Family History: Noncontributory. Review of Systems: General: Chronically ill. Eyes: Denies. Ears, Nose, Throat: Denies. Cardiovascular: Syncope. Pulmonary: Negative. GI: Constipation. : Negative other than the renal insufficiency as noted with creatinine of 1.4. Musculoskeletal: Negative. Neurologic: As noted. Psychiatric: Dementia. Endocrine: Negative. Physical Examination: Vital Signs: Temperature 97.4, pulse 66, respirations 18, blood pressure 150/80. General: Lying flat. He is awake, alert, tangential. Neurologic: Speech is both hypophonic and tachyphemic. No dysarthria. Moderate to severe masking o f facial expression with decreased blink rate. Ocular motion full. Griffin full. Extremity strength full. No dyskinesias. No cogwheeling. No resting tremor. Moderate generalized bradykinesia. Sen sation intact. Reflexes 1/4. Toes are downgoing. Cerebellar exam demonstrates no ataxia. Pertinent Laboratory Data: CT as noted and labs as noted. Procalcitonin is negative. Impression: Orthostatic hypotension and syncope. Recommendations: A 24-hour supervision upon discharge. Agree with thiamine on a daily basis. The p atient does appear to be undernourished. The Sinemet is on hold, which is reasonable, but it will ne ed to be restarted prior to discharge. The ProAmatine has been increased, but it has been a balancin g act with very significant leg edema on this type of dosing regimen. I really think that the patien t will be better served in a more structured environment. Thank you for the consult. We will continue to follow with you. SADAF Voice ID: [id number] Report ID: [id number]
[2020-02-09] MEDS: CARBIDOPA/LEVODOPA 25/250 TAB PO SCH (21:37)
[2020-02-09] MEDS: MIRTAZAPINE 15 MG TAB PO SCH (21:37)
[2020-02-10 00:52] LABS: CKMB Creatine Kinase MB 1.2 ng/mL (0.3-3.6); Creatine Phosphokinase 62 U/L (39-308); Troponin I < 0.02 ng/mL (0.0-0.045)
[2020-02-10] MEDS: NA CHLORIDE 0.9% 1,000 ML IV SCH (03:45)
[2020-02-10 04:05] LABS: Absolute Lymphocytes (CBC) 1.8 K/uL (0.7-4.9); Basophils % 0.5 % (0-1.3); Hematocrit 32.4 % (39.6-49.0); Lymphocytes % 32.1 % (15.3-44.8); MPV 7.6 fL (7.6-11.3); RBC Red Blood Cell Count 3.45 M/uL (4.33-5.43)
[2020-02-10 04:26] LABS: Magnesium 2.3 mg/dL (1.8-2.4); Potassium 4.4 mmol/L (3.5-5.1); Thyroid Stimulating Hormone 0.689 uIU/mL (0.360-3.740)
--- NOTE | 2020-02-10 07:14 | EKG ---
Test Date: 2020-02-09 Test Time: 09:17:28 Facilities Engineering Manager: MARK MEASUREMENT RESULTS: Intervals: Rate: 58 MA: 152 QRSD: 92 QT: 466 QTc: 457 Hamilton: P: 118 MA: 152 QRS: 0 T: 41 INTERPRETIVE STATEMENTS: Sinus bradycardia Nonspecific ST abnormality Abnormal ECG Compared to ECG 09/05/2019 00:44:20 ST (T wave) deviation now present Sinus rhythm no longer present Electronically Signed On 02-10-20 07:13:26 CDT by Franco Preciado
--- NOTE | 2020-02-10 08:00 | P.PN ---
Subjective Date of Service: 02/10/20 Primary Care Provider: Dr. Barnes; Neurology-Dr. Grimes Chief Complaint: Hypotension, altered mental status Subjective: Other (Patient appears improved. Blood pressure stable.) Physical Examination - Vital Signs Temperature: 98.0 F Blood Pressure: 160/70 Pulse: 59 Respirations: 16 Pulse Ox (%): 99 - Physical Exam General: Alert, Demented (Mild), Other (Patient appears to be at his baseline) HEENT: Atraumatic Neck: Supple Respiratory: Clear to auscultation bilaterally, Normal air movement Cardiovascular: Normal pulses, Regular rate/rhythm Gastrointestinal: Normal bowel sounds, Soft and benign, Non-distended Neurological: Normal speech, Normal strength at 5/5 x4 extr, Normal tone, Dementia (Mild) - Studies Laboratory Data (last 24 hrs) 02/09/20 09:15: Sodium 143, Potassium 4.9, BUN 28 H, Creatinine 1.41 H, Glucose 125 H 02/09/20 09:15: WBC 3.9 L, Hgb 11.4 L, Hct 33.6 L, Plt Count 138 L Microbiology Data (last 24 hrs): 02/09/20 10:45 Blood - Blood Anaerobic Blood Culture - Final Medications List Reviewed: Yes Assessment & Plan Discharge Plan: Other (Home with home health and caregiver services versus skilled verses rehab) Plan to discharge in: 24 Hours Physician Review Additional Text: Impression: Fall with altered mental status likely secondary to orthostatic hypotension complicated with dehydration, hypothermia and dementia Acute on chronic renal disease stage III with dehydration Vascular dementia Parkinson's Hyperlipidemia Hypertension Suspect mild protein malnutrition History of falls Plan: Fall with altered mental status likely secondary to orthostatic hypotension and metabolic encephalopathy complicated with dehydration, hypothermia and dementia: Patient appears improved. Renal function improved. Discontinue IV fluids. Patient on Midodrine, will adjust dose. Will recheck orthostatics. Will further discuss with Neurology. Neurology recommended to continue with home medications. Patient has difficult home situation as he lives by himself but has minimal caregiver services. Daughter looks out after him. Daughter has been trying to get him to a shelter care facility. Will have physical therapy and occupational therapy assess patient. We need to consider home with home health and 24 hr supervision verses skilled placement versus rehab versus other. Will discuss with addiction social worker and daughter again this morning. Await echocardiogram and carotid Doppler to further address his condition. Patient at increase risk for fall and significant injury. Advanced directives address with daughter yesterday. Patient is DNR. Will reassess again this morning after physical therapy for recommendations. Will also further discuss in detail with daughter to address plan of care. Possible discharge today pending further recommendations by neurology and physical therapy. Will also discuss with nephrology. Acute on chronic renal disease stage III with dehydration: This has improved. Discontinue IV fluids. Encourage oral intake. Will have dietary address daily needs. Vascular dementia: This appears stable this time. CT scan unremarkable. MRI not available at this time. Will obtain echocardiogram and carotid Doppler. Physical therapy and occupational therapy to further evaluate. Continue with above recommendation. Neurology recommends 24 hr supervision. Will discuss f urther with daughter. Continue with thiamine. Parkinson's: Continue with home medication Hyperlipidemia: Fasting lipid panel within normal range. Continue home medication Hypertension: Hold blood pressure medication at this time. Obtain and verify home medication. Suspect mild protein malnutrition: Will have dietary assess daily needs. History of falls: Physical therapy and occupational therapy to evaluate. Time Spent Managing Pts Care (In Minutes): 55
[2020-02-10 08:59] LABS: Ferritin 122.8 ng/mL (26-388)
[2020-02-10] MEDS: MIDODRINE HCL 5 MG TABLET PO SCH ×3 (09:00→21:16)
[2020-02-10] MEDS: ASPIRIN EC 81 MG TAB PO SCH (09:08)
[2020-02-10] MEDS: VITAMIN D 1000 UNIT TAB PO SCH (09:08)
[2020-02-10] MEDS: MULTIVIT W/ MINERAL TAB PO SCH (09:09)
[2020-02-10] MEDS: THIAMINE HCL 100 MG TABLET PO SCH (09:10)
[2020-02-10] MEDS: MEMANTINE HCL 10 MG TABLET PO SCH ×2 (09:10→12:42)
[2020-02-10] MEDS: FOLIC ACID 1 MG TABLET PO SCH (09:11)
[2020-02-10] MEDS: CARBIDOPA/LEVODOPA 25/250 TAB PO SCH ×4 (09:11→21:16)
[2020-02-10] MEDS: POLYETHYL GLY 3350 17 GM/DOSE PO SCH (09:12)
[2020-02-10] MEDS: ENOXAPARIN 40 MG/0.4 ML SQ SCH (09:12)
[2020-02-10] MEDS: ACETAMINOPHEN 500 MG TAB PO PRN (10:47)
[2020-02-10] MEDS ORDERED: NA CHLORIDE 0.9% 1,000 ML IV SCH (12:00)
--- NOTE | 2020-02-10 14:02 | CON ---
Date of Consultation: 02/10/2020 Reason For Consultation: Acute on chronic renal insufficiency. History Of Present Illness: Mr. Louis is an 79-year-old gentleman with past medical history signific ant for chronic kidney disease, Parkinson disease with dementia, and orthostatic hypotension. The rafita gómez presented to [facility] after he had an episode of fall with injury and hence he has been admitted to the hospital for further evaluation. He has been found to have severe orthostatic hypotension and has been started on IV fluids by Dr. Vivas. He appears stable at this time and denies any complaints. Past Medical History: Significant for history of Parkinson with orthostatic hypotension, dementia, m acular degeneration, GERD, hyperlipidemia, CHF, peripheral arterial disease, inguinal hernia. Past Surgical History: Significant for history of appendectomy. Social History: Lives with his daughter. No history of smoking, alcohol, or drug use reported. Family History: Noncontributory. Review of Systems: Unable to be obtained at this time. Physical Examination: Vital Signs: Have been reviewed. Blood pressure is running high in the 170s and 160s. General: He appears in no acute distress. HEENT: Atraumatic head. Lungs: Clear to auscultation with diminished breath sounds at bases. Extremities: Showed no evidence of edema. Heart: Auscultation of heart revealed regular rate and rhythm. Laboratory Data: At this time are showing stable hemoglobin, hematocrit, and platelet count. BMP re sults are showing stable renal function. LFTs are within normal limits and free T4 was slightly decr eased. Iron lab studies have been stable too. Current Medications: Include Namenda, Sinemet, carbidopa/levodopa 1 tablet 3-4 times a day, Lovenox for deep vein thrombosis prophylaxis. He is on midodrine 2.5 mg 3 times a day, Remeron 15 mg at bedt ata, thiamine, and he is on normal saline at 50 mL per hour. Impression: 1.Acute on chronic renal insufficiency, currently stable. 2.Orthostatic hypotension related to autonomic insufficiency from underlying Parkinson disease. The patient is on midodrine at this time; however, he possibly needs to have some physical therapy with also lower extremity compression stockings to help with orthostatic hypotension; however, this would be a difficult problem to treat given his underlying Parkinson disease. 3.Dementia, currently stable. Plan: The patient is overall stable at this time. I will discontinue hydration as the patient's blo od pressure is running high at this time; however, this is possibly because this is being checked whi le he is supine. He possibly still could have orthostatic hypotension and supine hypertension. Cont inue with midodrine and we will follow up closely. The patient will possibly need placement for fall prevention and also will need physical therapy with lower extremity compression stockings to prevent further future falls. DAVID/ANNIE Voice ID: [id number] Report ID: [id number]
[2020-02-10] MEDS ORDERED: ENSURE ENLIVE 237 ML CAN PO PRN (15:29)
[2020-02-10] MEDS: MIRTAZAPINE 15 MG TAB PO SCH (21:15)
[2020-02-10] MEDS: ATORVASTATIN 40 MG TAB PO SCH (21:16)
[2020-02-11] MEDS: POLYETHYL GLY 3350 17 GM/DOSE PO SCH (09:00)
--- NOTE | 2020-02-11 09:34 | P.DS ---
Admission Date: 02/10/20 Discharge Date: 02/11/20 Primary Care Provider: Dr. Barnes; Neurology-Dr. Grimes Disposition: DC HOME/HOME HEALTH CARE Discharge Condition: GOOD Reason for Admission: Hypotension, altered mental status Consultations: Nephrology-Dr. Barnes Neurology-Dr. Grimes Procedures: 08/2019 ECHO: EF 60% LEFT VENTRICULAR WALL MOTION: NORMAL. DOPPLER/COLOR FLOW: MILD AORTIC, TRICUSPID REGURGITATION NORMAL RIGHT VENTRICULAR SYSTOLIC PRESSURE. COMMENTS: MILD AORTIC AND TRICUSPID REGURGITATION. MITRAL VALVE PROLAPSE. NORMAL LEFT VENTRICULAR SIZE AND FUNCTION. AORTIC SCLEROSIS WITH NO STENOSIS. 08/2019 Carotid doppler: FINDINGS: Normal high resistance waveforms are noted in both external carotid arteries. The common carotid arteries and internal carotid arteries show normal low resistance waveforms. Calcified and noncalcified plaquing changes are present in each bulb and proximal ICA. Visually no significant degree of luminal narrowing identified. Peak systolic and end diastolic velocity values and the ICA/CCA ratios are in the non-hemodynamically significant range. Antegrade flow seen in both vertebral arteries. Velocity values and ratios were recorded and are retained in the patient's imaging records. IMPRESSION: Bilateral calcified and noncalcified plaquing changes are present. Atherosclerotic changes do not result in hemodynamically significant stenosis CT Head: FINDINGS: No intracranial hemorrhage, hydrocephalus or extra-axial fluid collection.No areas of brain edema or evidence of midline shift. Fluid is present both mastoid air cells. Paranasal sinuses are clear. The calvarium is intact. IMPRESSION: No acute intracranial abnormality. Mild fluid is seen in both mastoid air cells. MRI Brain: Medical Problem List: Fall with altered mental status likely secondary to orthostatic hypotension complicated with dehydration, hypothermia and dementia Acute on chronic renal disease stage III with dehydration Vascular dementia Parkinson's Hyperlipidemia Hypertension Suspect mild protein malnutrition History of falls Brief History of Present Illness: 79-year-old male with history of Parkinson's hypertension, orthostatic hypotension, and hyperlipidemia. Patient was brought in by EMS due to altered mental status and hypotension. Patient apparently had been falling at home. EMS was called after a provider noted that he was on the ground. It is unclear how long he was on the ground. Patient had some confusion. Patient lives at home but receives caregiver services and looked after by his daughter. Patient denied any chest pain, shortness of breath. There is no mention of fever, cough. EMS report shows blood pressures around 50 systolic. Patient was given IV fluids in route. Upon further evaluation in the emergency room. Blood pressure much improved and stabilized. In the ER patient remained on IV fluids. Blood pressure now stable. Urinalysis unremarkable. Lactic acid unremarkable. Pro calcitonin unremarkable. Troponin unremarkable. CK unremarkable. CT head unremarkable. White count 3.9, hemoglobin 11.4. Potassium 4.9, sodium 143. BN of 28, creatinine 1.41 with a GFR 48. Glucose 125. COVID test pending. Patient was found to be hypothermic with a core temperature of 95. Patient was placed on Bear Hugger warmer. Patient admitted for further evaluation and observation. Patient appears stable in the emergency room. Daughter at bedside. Daughter reports patient has been falling a lot. Patient with underlying history of Parkinson's and dementia. It is been getting more difficult to take care of the patient. Patient currently lives alone with caregiver services. Daughter is looking to sending the patient in to a long-term care facility but this process has been difficult. Hospital Course: Patient presented with fall and altered mental status. This was likely related to orthostatic hypotension which he has and metabolic encephalopathy related to dehydration, hypothermia and dementia. The patient was given IV fluids was improvement. Patient was given Midodrine. The patient was monitored closely. Orthostatic changes were noted. The patient required further monitoring. Neurology and nephrology were consulted. Recent echocardiogram unremarkable. Carotid Doppler also showed no significant stenosis. Neurology mentioned that it had been difficult to adjust midodrine in the past due to edema with higher doses. There may be some issues with compliance at home as well. Patient with increase risk of fall and significant injury. Physical therapy consulted to help with this. Patient has been to skilled placement in the past. Daughter desires long-term placement. This has been a tedious process due to his [facility] status. Daughter will continue to pursue long-term placement for the patient. At discharge patient stable pill with his mobility. Blood pressure without significant hypotension. At discharge patient will need to continue midodrine 2.5 mg 3 times a day. Recommend to monitor blood pressure closely. Will need to consider holding Midodrine if blood pressure systolic greater than 150. Recommend follow up with nephrology and neurology within 1 week to monitor his care. Further adjustment in medication may be required. Encourage hydration. Encourage safety precautions for prevention of fall at home. Patient with acute on chronic renal disease stage III. Patient improved with IV fluids. Nephrology evaluated patient. Continue with above recommendation. Recommend to recheck lab-BMP in 2-4 weeks to monitors progress. Recommend follow up with nephrology in 1-2 weeks to follow up this hospitalization. Patient with underlying vascular dementia. CT scan unremarkable. MRI per formed. Neurology recommends 24 hr supervision. This was discussed in detail with the daughter. Patient will have home health, physical therapy and caregiver services increased. Daughter will continue to pursue long-term placement. At discharge patient may continue with Namenda 5 mg 1 pill twice daily. Patient also takes Remeron 15 mg at bedtime. Recommend follow up with neurology in 1-2 weeks to follow up this hospitalization. Patient with Parkinson's. This appears stable. At discharge he will continue with his current medication-carbidopa levodopa 25/250 mg 4 times a day. Recommend follow up with neurology to further monitor and adjust. Patient with hyperlipidemia. Continue with current medication-Lipitor 10 mg daily. Patient with history of hypertension. No need for medication at this time due to orthostatics hypotension. Recommend to monitor blood pressure closely. Recommend to hold Midodrine if blood pressure systolic greater than 150. If blood pressure remains elevated off Midodrine then BP medication may need to be required. This can be further addressed by his PCP. Patient with mild protein malnutrition. Encourage supplementation. Continue with thiamine 100 mg daily. Encourage Ensure-Enlive one can twice daily if intake is less than 50% Patient with history of falls. Physical therapy has evaluated patient. Physical therapy has made recommendations. Continue with physical therapy recommendations at this time. Fall precautions in place. Vital Signs/Physical Exam: Temp Pulse Resp BP Pulse Ox 98.1 F 58 15 141/57 H 100 02/11/20 08:00 02/11/20 08:00 02/11/20 08:00 02/11/20 08:00 02/11/20 08:00 General: Alert, Cooperative HEENT: Atraumatic Neck: Supple Respiratory: Clear to auscultation bilaterally, Normal air movement Cardiovascular: Normal pulses, Regular rate/rhythm Gastrointestinal: Normal bowel sounds, No tenderness, No masses, No rebound, No guarding Musculoskeletal: No erythema, No tenderness, No warmth Integumentary: No tenderness/swelling, No erythema, No warmth, No cyanosis Neurological: Normal speech, Normal strength at 5/5 x4 extr, Normal tone, Jeremy ntia (Mild dementia) Laboratory Data at Discharge: WBC 5.6 K/uL (4.3-10.9) D 02/10/20 03:48 Hgb 10.9 g/dL (13.6-17.9) L 02/10/20 03:48 Hct 32.4 % (39.6-49.0) L 02/10/20 03:48 Plt Count 134 K/uL (152-406) L 02/10/20 03:48 Sodium 141 mmol/L (136-145) 02/10/20 03:48 Potassium 4.4 mmol/L (3.5-5.1) 02/10/20 03:48 BUN 21 mg/dL (7-18) H 02/10/20 03:48 Creatinine 1.08 mg/dL (0.55-1.3) 02/10/20 03:48 Glucose 82 mg/dL (74-106) 02/10/20 03:48 Magnesium 2.3 mg/dL (1.8-2.4) 02/10/20 03:48 Troponin I < 0.02 ng/mL (0.0-0.045) 02/10/20 00:15 Triglycerides 47 mg/dL (<150) 02/10/20 03:48 Cholesterol 168 mg/dL (<200) 02/10/20 03:48 HDL Cholesterol 60 mg/dL (40-60) 02/10/20 03:48 Cholesterol/HDL Ratio 2.80 02/10/20 03:48 Home Medications: Aspirin [Aspir-Low] 1 tab PO DAILY 06/08/19 Atorvastatin Calcium [Lipitor*] 0.5 tab PO BEDTIME 06/08/19 Carbidopa/Levodopa [Carbidopa-Levo 25-250 mg Odt] 1 tab PO QID 06/08/19 Midodrine HCl 2.5 mg PO TID 06/08/19 Mirtazapine [Remeron*] 15 mg PO BEDTIME 06/08/19 Mv-Mins/Folic/Lycopene/Ginkgo [One Daily Men's 50+ Tablet] 1 tab PO DAILY 06/08/19 Cholecalciferol (Vitamin D3) [Vitamin D 1000 Iu Tab*] 2,000 unit PO DAILY #30 tab 06/16/19 Memantine HCl [Namenda] 1 tab PO BREAKFAST 09/05/19 Memantine HCl [Namenda] 1 tab PO LUNCH 09/05/19 Ensure Enlive 237 ml PO BID PRN #60 can 02/11/20 Thiamine HCl [Vitamin B-1*] 100 mg PO DAILY #90 tablet 02/11/20 New Medications: Ensure Enlive 237 ml PO BID PRN #60 can PRN Reason: If PO intake is < 50% Thiamine HCl [Vitamin B-1*] 100 mg PO DAILY #90 tablet Patient Discharge Instructions: 1. Recommend follow up with PCP in 1 week to follow up this hospitalization. 2. Patient presented with fall and altered mental status. This was likely related to orthostatic hypotension which he has and metabolic encephalopathy related to dehydration, hypothermia and dementia. The patient was given IV fluids was improvement. Patient was given Midodrine. The patient was monitored closely. Orthostatic changes were noted. The patient required further monitoring. Neurology and nephrology were consulted. Recent echocardiogram unremarkable. Carotid Doppler also showed no significant stenosis. Neurology mentioned that it had been difficult to adjust midodrine in the past due to edema with higher doses. There may be some issues with compliance at home as well. Patient with increase risk of fall and significant injury. Physical therapy consulted to help with this. Patient has been to skilled placement in the past. Daughter desires long-term placement. This has been a tedious process due to his financial status. Daughter will continue to pursue long-term placement for the patient. At discharge patient stable pill with his mobility. Blood pressure without significant hypotension. At discharge patient will need to continue midodrine 2.5 mg 3 times a day. Recommend to monitor blood pressure closely. Will need to consider holding Midodrine if blood pressure systolic greater than 150. Recommend follow up with nephrology and neurology within 1 week to monitor his care. Further adjustment in medication may be required. Encourage hydration. Encourage safety precautions for prevention of fall at home. 3. Patient with acute on chronic renal disease stage III. Patient improved with IV fluids. Nephrology evaluated patient. Continue with above recommendation. Recommend to recheck lab-BMP in 2-4 weeks to monitors progress. Recommend follow up with nephrology in 1-2 weeks to follow up this hospitalization. 4. Patient with underlying vascular dementia. CT scan unremarkable. MRI performed. Neurology recommends 24 hr supervision. This was discussed in detail with the daughter. Patient will have home health, physical therapy and caregiver services increased. Daughter will continue to pursue long-term placement. At discharge patient may continue with Namenda 5 mg 1 pill twice daily. Patient also takes Remeron 15 mg at bedtime. Recommend follow up with neurology in 1-2 weeks to follow up this hospitalization. 5. Patient with Parkinson's. This appears stable. At discharge he will continue with his current medication-carbidopa levodopa 25/250 mg 4 times a day. Recommend follow up with neurology to further monitor and adjust. 6. Patient with hyperlipidemia. Continue with current medication- Lipitor 10 mg daily. 7. Patient with history of hypertension. No need for medication at this time due to orthostatics hypotension. Recommend to monitor blood pressure closely. Recommend to hold Midodrine if blood pressure systolic greater than 150. If blood pressure remains elevated off Midodrine then BP medication may need to be required. This can be further addressed by his PCP. 8. Patient with mild protein malnutrition. Encourage supplementation. Continue with thiamine 100 mg daily. Encourage Ensure-Enlive one can twice daily if intake is less than 50%. 9. Patient with history of falls. Physical therapy has evaluated patient. Physical therapy has made recommendations. Continue with physical therapy recommendations at this time. Fall precautions in place. Diet: AHA Activity: Fall precautions Time spent managing pt's care (in minutes): 55
[2020-02-11] MEDS: MEMANTINE HCL 10 MG TABLET PO SCH ×2 (10:05→12:39)
[2020-02-11] MEDS: ASPIRIN EC 81 MG TAB PO SCH (10:05)
[2020-02-11] MEDS: VITAMIN D 1000 UNIT TAB PO SCH (10:05)
[2020-02-11] MEDS: FOLIC ACID 1 MG TABLET PO SCH (10:06)
[2020-02-11] MEDS: MULTIVIT W/ MINERAL TAB PO SCH (10:06)
[2020-02-11] MEDS: CARBIDOPA/LEVODOPA 25/250 TAB PO SCH ×4 (10:06→21:35)
[2020-02-11] MEDS: ENOXAPARIN 40 MG/0.4 ML SQ SCH (10:06)
[2020-02-11] MEDS: THIAMINE HCL 100 MG TABLET PO SCH (10:06)
[2020-02-11] MEDS: MIDODRINE HCL 5 MG TABLET PO SCH ×3 (10:09→21:35)
--- NOTE | 2020-02-11 13:13 | P.PN ---
Subjective Date of Service: 02/11/20 Primary Care Provider: Dr. Barnes; Neurology-Dr. Grimes Chief Complaint: Hypotension, altered mental status Subjective: Other (Patient appears improved. Blood pressure better stabilized.) Physical Examination - Vital Signs Temperature: 97.2 F Blood Pressure: 138/59 Pulse: 61 Respirations: 15 Pulse Ox (%): 98 - Physical Exam General: Alert, In no apparent distress, Cooperative, Demented (Mild) HEENT: Atraumatic Neck: Supple Respiratory: Clear to auscultation bilaterally, Normal air movement Cardiovascular: Normal pulses, Regular rate/rhythm Gastrointestinal: Normal bowel sounds, No tenderness, No masses, No rebound, No guarding Neurological: Normal speech, Normal strength at 5/5 x4 extr, Normal tone, Normal affect - Studies Microbiology Data (last 24 hrs): 02/09/20 10:40 Catheterized Urine [place] Count - Final No growth. 02/09/20 10:40 Catheterized Urine - Final No growth. 02/09/20 10:45 Blood - Blood Anaerobic Blood Culture - Final Medications List Reviewed: Yes Assessment & Plan Discharge Plan: Other (nursing home facility) Plan to discharge in: 24 Hours Physician Review Additional Text: Impression: Fall with altered mental status likely secondary to orthostatic hypotension complicated with dehydration, hypothermia and dementia Acute on chronic renal disease stage III with dehydration Vascular dementia Parkinson's Hyperlipidemia Hypertension Suspect mild protein malnutrition History of falls Plan: Fall with altered mental status likely secondary to orthostatic hypotension and metabolic encephalopathy complicated with dehydration, hypothermia and dementia: Physical therapy worked with patient this morning. Patient was able to walk 14 feet but required assistance. Discuss case in detail with physical therapy. Physical therapy recommends skilled placement. Neurology reviewed. Neurology had mention and recommended 24 hr supervision. Patient currently gets 14 hr of caregiver services. Case discussed at length with daughter who takes care the patient. Options of care were provided including home health/physical therapy/caregiver services and skilled placement. As recommended by physical therapy, daughter agreed to pursue skilled placement. She hopes after skilled therapy patient can go to a long-term acute care facility. She will work on this process as well. Continue to work with physical therapy. Will monitor blood pressure. Continue current medication. Will discuss further with Neurology and Nephrology. Acute on chronic renal disease stage III with dehydration: This has improved. Encourage oral intake. Will have dietary address daily needs. Vascular dementia: This appears stable this time. CT scan unremarkable. MRI in now available. Will order MRI to further evaluate. Prior echo and carotid Doppler reviewed. This was done in August. Physical therapy and occupational therapy continue to work with patient. As stated above physical therapy recommends skilled placement. Neurology also recommended 24 hr care. Patient high risk for fall. Continue with current plan to pursue skilled placement. Continue physical therapy. Parkinson's: Continue with home medication Hyperlipidemia: Fasting lipid panel within normal range. Continue home medication Hypertension: Hold blood pressure medication at this time. Obtain and verify home medication. Suspect mild protein malnutrition: Will have dietary assess daily needs. History of falls: Physical therapy and occupational therapy to evaluate. Time Spent Managing Pts Care (In Minutes): 55
[2020-02-11] MEDS: ATORVASTATIN 40 MG TAB PO SCH (21:35)
[2020-02-11] MEDS: MIRTAZAPINE 15 MG TAB PO SCH (21:35)
--- NOTE | 2020-02-11 22:35 | P.PN ---
Date of Service: 02/11/20 Vital Signs Temp Pulse Resp BP Pulse Ox 97.3 F 60 15 123/59 L 98 02/11/20 16:00 02/11/20 16:00 02/11/20 16:00 02/11/20 16:00 02/11/20 16:00 Medications Acetaminophen (Tylenol -Extra Strength) 500 mg PO Q4HP PRN PRN Reason: TEMP > 101' F Stop: 03/10/20 13:39 Last Admin: 02/10/20 10:47 Dose: 500 mg Documented by: Aspirin (Aspirin Ec) 81 mg PO DAILY DAVID Stop: 03/11/20 09:01 Last Admin: 02/11/20 10:05 Dose: 81 mg Documented by: Atorvastatin Calcium (Lipitor) 40 mg PO BEDTIME DAVID Stop: 03/10/20 21:01 Last Admin: 02/11/20 21:35 Dose: 40 mg Documented by: Carbidopa/Levodopa (Sinemet 25-250) 1 tab PO QID DAVID Stop: 03/10/20 21:01 Last Admin: 02/11/20 21:35 Dose: 1 tab Documented by: Cholecalciferol (Vitamin D 1000 Iu Tab) 2,000 unit PO DAILY DAVID Stop: 03/11/20 09:01 Last Admin: 02/11/20 10:05 Dose: 2,000 unit Documented by: Enoxaparin Sodium (Lovenox 40 Mg Inj) 40 mg SQ DAILY DAVID Stop: 03/11/20 09:01 Last Admin: 02/11/20 10:06 Dose: 40 mg Documented by: Folic Acid (Folic Acid) 1 mg PO DAILY DAVID Stop: 03/11/20 09:01 Last Admin: 02/11/20 10:06 Dose: 1 mg Documented by: Memantine (Namenda) 5 mg PO BREAKFAST DAVID Stop: 03/11/20 08:01 Last Admin: 02/11/20 10:05 Dose: 5 mg Documented by: Memantine (Namenda) 5 mg PO LUNCH DAVID Stop: 03/11/20 12:01 Last Admin: 02/11/20 12:39 Dose: 5 mg Documented by: Midodrine (Proamatine) 2.5 mg PO TID DAVID Stop: 03/11/20 09:01 Last Admin: 02/11/20 21:35 Dose: 2.5 mg Documented by: Mirtazapine (Remeron) 15 mg PO BEDTIME DAVID Stop: 03/10/20 21:01 Last Admin: 02/11/20 21:35 Dose: 15 mg Documented by: Multivitamins/Minerals (Centrum Silver) 1 tab PO DAILY DAVID Stop: 03/11/20 09:01 Last Admin: 02/11/20 10:06 Dose: 1 tab Documented by: Nutritional Formula (Ensure Enlive) 237 ml PO BID PRN PRN Reason: If PO intake is < 50% Stop: 03/11/20 21:01 Ondansetron HCl (Zofran) 4 mg IV Q6HP PRN PRN Reason: NAUSEA / VOMITING Stop: 03/10/20 13:39 Polyethylene Glycol (Glycolax) 17 gm PO DAILY DAVID Stop: 03/11/20 09:01 Last Admin: 02/11/20 09:00 Dose: Not Given Documented by: Sodium Chloride (Normal Saline Flush) 10 ml IV BID COUNT INCLUDES THE [facility] Stop: 03/10/20 21:01 Last Admin: 02/11/20 10:06 Dose: 10 ml Documented by: Thiamine HCl (Vitamin B-1) 100 mg PO DAILY COUNT INCLUDES THE [facility] Stop: 03/11/20 09:01 Last Admin: 02/11/20 10:06 Dose: 100 mg Documented by: Microbiology Results 02/09/20 10:40 Catheterized Urine [place] Count - Final No growth. 02/09/20 10:40 Catheterized Urine - Final No growth. 02/09/20 10:56 Blood - Blood Aerobic Blood Culture - Preliminary No growth in 24 hours. 02/09/20 10:56 Blood - Blood Anaerobic Blood Culture - Preliminary No growth in 24 hours. 02/09/20 10:45 Blood - Blood Aerobic Blood Culture - Preliminary No growth in 24 hours. 02/09/20 10:45 Blood - Blood Anaerobic Blood Culture - Final Assessment/ Plan: Nephrology CPS stable without CP or SOB. No acute events overnight. Vitals, medications, blood work and imaging reviewed in the chart. NAD. MMM. Neck supple. CTA. RRR. Soft Abd. No C/C/E. No rash. AAO. Abnormal Speech. A/ TREVOR improving Hypotension/ Hypovolemia Hypocalcemia Anemia in chronic illness Iron deficiency Parkinsons Ds P/ Continue current POC and Medications. IVF bolus as needed. Agree with midodrine. Continue Vitamin D. AM labs. Daily weight. No NSAIDs.
[2020-02-12] MEDS: ASPIRIN EC 81 MG TAB PO SCH (08:10)
[2020-02-12] MEDS: MULTIVIT W/ MINERAL TAB PO SCH (08:10)
[2020-02-12] MEDS: THIAMINE HCL 100 MG TABLET PO SCH (08:10)
[2020-02-12] MEDS: VITAMIN D 1000 UNIT TAB PO SCH (08:11)
[2020-02-12] MEDS: ENOXAPARIN 40 MG/0.4 ML SQ SCH (08:11)
[2020-02-12] MEDS: FOLIC ACID 1 MG TABLET PO SCH (08:12)
[2020-02-12] MEDS: MEMANTINE HCL 10 MG TABLET PO SCH ×2 (08:12→11:01)
[2020-02-12] MEDS: POLYETHYL GLY 3350 17 GM/DOSE PO SCH (08:13)
[2020-02-12] MEDS: MIDODRINE HCL 5 MG TABLET PO SCH ×3 (08:13→21:00)
[2020-02-12] MEDS: CARBIDOPA/LEVODOPA 25/250 TAB PO SCH ×4 (08:13→21:13)
--- NOTE | 2020-02-12 09:01 | P.PN ---
Subjective Date of Service: 02/12/20 Primary Care Provider: Dr. Barnes; Neurology-Dr. Grimes Chief Complaint: Hypotension, altered mental status Subjective: Doing well Physical Examination - Vital Signs Temperature: 97.5 F Blood Pressure: 181/77 Pulse: 57 Respirations: 16 Pulse Ox (%): 99 - Physical Exam General: Alert, In no apparent distress, Cooperative HEENT: Atraumatic Neck: Supple Respiratory: Clear to auscultation bilaterally, Normal air movement Cardiovascular: Normal pulses, Regular rate/rhythm Gastrointestinal: Normal bowel sounds, Soft and benign, Non-distended Neurological: Normal speech, Normal strength at 5/5 x4 extr, Normal tone, Normal affect - Studies Microbiology Data (last 24 hrs): 02/09/20 10:40 Catheterized Urine [place] Count - Final No growth. 02/09/20 10:40 Catheterized Urine - Final No growth. Medications List Reviewed: Yes Assessment & Plan Discharge Plan: Other (snf facility) Plan to discharge in: 24 Hours Physician Review Additional Text: Impression: Fall with altered mental status likely secondary to orthostatic hypotension complicated with dehydration, hypothermia and dementia Acute on chronic renal disease stage III with dehydration Vascular dementia Parkinson's Hyperlipidemia Hypertension Suspect mild protein malnutrition History of falls Plan: Fall with altered mental status likely secondary to orthostatic hypotension and metabolic encephalopathy complicated with dehydration, hypothermia and dementia: Spoke with daughter at length yesterday. She was agreeable to consider skilled placement. Social work to help in this process. Patient worked with physical therapy yesterday. Patient required assistance with limited mobility. Physical therapy recommended skilled placement. Daughter also working for long-term care. Will continue to monitor the patient closely. Daughter would consider sending the patient home today with physical therapy, home health, and caregiver services if the patient does extremely well with physical therapy. But she w ould like to continue to pursue skilled placement at this time. Will discuss further with social work msw about the possibility of going home and waiting for skilled placement approval as an outpatient. But this will be considered only if physical therapy reports significant improvement. Otherwise the patient will remain in the hospital. I will turn the service over to the hospitalist team tomorrow. I will go over the plan of care with him. Will reassess later today. Acute on chronic renal disease stage III with dehydration: This has improved. Encourage oral intake. Will have dietary address daily needs. Continue with oral supplementation if intake is less than 50%. Vascular dementia: This appears stable this time. CT scan unremarkable. MRI was considered yesterday. Daughter declined to have the MRI a done as likely etiology of fall/altered mental status was related to orthostatic hypotension. Patient also has had previous MRIs with no significant change. Prior echo and carotid Doppler reviewed. This was done in August. Physical therapy and occupational therapy continue to work with patient. As stated above physical therapy recommends skilled placement. Neurology also recommended 24 hr care. Patient high risk for fall. Continue with current plan above. Parkinson's: Continue with home medication Hyperlipidemia: Fasting lipid panel within normal range. Continue home medication Hypertension: Continue to Hold blood pressure medication at this time. Patient on added drain at low dose. Monitor blood pressure closely. Would like to keep blood pressure slightly elevated due to his history of orthostatic hypotension. Suspect mild protein malnutrition: Will provide oral supplementation if intake less than 50% History of falls: Physical therapy and occupational therapy to continue evaluation and support. Time Spent Managing Pts Care (In Minutes): 55
[2020-02-12] MEDS: ACETAMINOPHEN 500 MG TAB PO PRN (10:59)
[2020-02-12] MEDS: ATORVASTATIN 40 MG TAB PO SCH (21:13)
[2020-02-12] MEDS: MIRTAZAPINE 15 MG TAB PO SCH (21:13)
--- NOTE | 2020-02-12 22:09 | P.PN ---
Date of Service: 02/12/20 Vital Signs Temp Pulse Resp BP Pulse Ox 97.3 F 65 16 132/65 98 02/12/20 16:00 02/12/20 16:00 02/12/20 16:00 02/12/20 16:00 02/12/20 16:00 Medications Acetaminophen (Tylenol -Extra Strength) 500 mg PO Q4HP PRN PRN Reason: TEMP > 101' F Stop: 03/10/20 13:39 Last Admin: 02/12/20 10:59 Dose: 500 mg Documented by: Aspirin (Aspirin Ec) 81 mg PO DAILY DAVID Stop: 03/11/20 09:01 Last Admin: 02/12/20 08:10 Dose: 81 mg Documented by: Atorvastatin Calcium (Lipitor) 40 mg PO BEDTIME DAVID Stop: 03/10/20 21:01 Last Admin: 02/12/20 21:13 Dose: 40 mg Documented by: Carbidopa/Levodopa (Sinemet 25-250) 1 tab PO QID DAVID Stop: 03/10/20 21:01 Last Admin: 02/12/20 21:13 Dose: 1 tab Documented by: Cholecalciferol (Vitamin D 1000 Iu Tab) 2,000 unit PO DAILY DAVID Stop: 03/11/20 09:01 Last Admin: 02/12/20 08:11 Dose: 2,000 unit Documented by: Enoxaparin Sodium (Lovenox 40 Mg Inj) 40 mg SQ DAILY DAVID Stop: 03/11/20 09:01 Last Admin: 02/12/20 08:11 Dose: 40 mg Documented by: Folic Acid (Folic Acid) 1 mg PO DAILY DAVID Stop: 03/11/20 09:01 Last Admin: 02/12/20 08:12 Dose: 1 mg Documented by: Memantine (Namenda) 5 mg PO BREAKFAST DAVID Stop: 03/11/20 08:01 Last Admin: 02/12/20 08:12 Dose: 5 mg Documented by: Memantine (Namenda) 5 mg PO LUNCH DAVID Stop: 03/11/20 12:01 Last Admin: 02/12/20 11:01 Dose: 5 mg Documented by: Midodrine (Proamatine) 2.5 mg PO TID DAVID Stop: 03/11/20 09:01 Last Admin: 02/12/20 21:00 Dose: Not Given Documented by: Mirtazapine (Remeron) 15 mg PO BEDTIME [facility] Stop: 03/10/20 21:01 Last Admin: 02/12/20 21:13 Dose: 15 mg Documented by: Multivitamins/Minerals (Centrum Silver) 1 tab PO DAILY DAVID Stop: 03/11/20 09:01 Last Admin: 02/12/20 08:10 Dose: 1 tab Documented by: Nutritional Formula (Ensure Enlive) 237 ml PO BID PRN PRN Reason: If PO intake is < 50% Stop: 03/11/20 21:01 Ondansetron HCl (Zofran) 4 mg IV Q6HP PRN PRN Reason: NAUSEA / VOMITING Stop: 03/10/20 13:39 Polyethylene Glycol (Glycolax) 17 gm PO DAILY DAVID Stop: 03/11/20 09:01 Last Admin: 02/12/20 08:13 Dose: Not Given Documented by: Sodium Chloride (Normal Saline Flush) 10 ml IV BID DAVID Stop: 03/10/20 21:01 Last Admin: 02/12/20 21:14 Dose: 10 ml Documented by: Thiamine HCl (Vitamin B-1) 100 mg PO DAILY [facility] Stop: 03/11/20 09:01 Last Admin: 02/12/20 08:10 Dose: 100 mg Documented by: Microbiology Results 02/09/20 10:40 Catheterized Urine [place] Count - Final No growth. 02/09/20 10:40 Catheterized Urine - Final No growth. 02/09/20 10:56 Blood - Blood Aerobic Blood Culture - Preliminary No growth in 24 hours. 02/09/20 10:56 Blood - Blood Anaerobic Blood Culture - Preliminary No growth in 24 hours. 02/09/20 10:45 Blood - Blood Aerobic Blood Culture - Preliminary No growth in 24 hours. 02/09/20 10:45 Blood - Blood Anaerobic Blood Culture - Final Assessment/ Plan: Nephrology CPS stable without CP or SOB. No acute events overnight. Vitals, medications, blood work and imaging reviewed in the chart. NAD. MMM. Neck supple. CTA. RRR. Soft Abd. No C/C/E. No rash. AAO. Abnormal Speech. A/ TREVOR improving Hypotension/ Hypovolemia Hypocalcemia Anemia in chronic illness Iron deficiency Parkinsons Ds P/ Continue current POC and Medications. IVF bolus as needed. Agree with midodrine. Continue Vitamin D. AM labs. Daily weight. No NSAIDs.
--- NOTE | 2020-02-13 08:14 | P.PN ---
Subjective Date of Service: 02/13/20 (Hospitalist) Primary Care Provider: Dr. Barnes; Neurology-Dr. Grimes Chief Complaint: Hypotension, altered mental status Subjective: Improving (Patient is doing well is not very alert responsive cooperative final signs stable) Review of Systems is unable to be obtained Physical Examination - Vital Signs Temperature: 97.4 F Blood Pressure: 175/81 Pulse: 55 Respirations: 18 Pulse Ox (%): 99 - Physical Exam General: Alert, Cooperative Respiratory: Clear to auscultation bilaterally Cardiovascular: No edema, Normal S1 S2 - Studies Medications List Reviewed: Yes Assessment & Plan - Problems (Diagnosis) (1) Acute kidney injury Current Visit: No Status: Acute Plan: Acute kidney injuries has been resolved is got normal renal function now history of Parkinson's disease dementia orthostatic hypotension waiting long term placement no evidence of sepsis cultures are all negative labs in medication list reviewed patient is eating and drinking responding appropriately basic m etabolic profile ordered today Discharge Plan: [facility] Plan to discharge in: 48 Hours
[2020-02-13] MEDS: MIDODRINE HCL 5 MG TABLET PO SCH ×3 (09:00→20:51)
[2020-02-13] MEDS: VITAMIN D 1000 UNIT TAB PO SCH (09:18)
[2020-02-13] MEDS: MEMANTINE HCL 10 MG TABLET PO SCH ×2 (09:19→11:42)
[2020-02-13] MEDS: MULTIVIT W/ MINERAL TAB PO SCH (09:19)
[2020-02-13] MEDS: FOLIC ACID 1 MG TABLET PO SCH (09:19)
[2020-02-13] MEDS: CARBIDOPA/LEVODOPA 25/250 TAB PO SCH ×4 (09:19→20:51)
[2020-02-13] MEDS: THIAMINE HCL 100 MG TABLET PO SCH (09:19)
[2020-02-13] MEDS: ASPIRIN EC 81 MG TAB PO SCH (09:20)
[2020-02-13] MEDS: ENOXAPARIN 40 MG/0.4 ML SQ SCH (09:20)
[2020-02-13] MEDS: POLYETHYL GLY 3350 17 GM/DOSE PO SCH (09:21)
[2020-02-13 09:39] LABS: Potassium 3.9 mmol/L (3.5-5.1)
[2020-02-13] MEDS ORDERED: POTASSIUM CL SA 10 MEQ TAB PO ONE (16:00)
[2020-02-13] MEDS: MIRTAZAPINE 15 MG TAB PO SCH (20:51)
[2020-02-13] MEDS: ATORVASTATIN 40 MG TAB PO SCH (20:51)
[2020-02-14 06:16] LABS: Potassium 4.2 mmol/L (3.5-5.1)
--- NOTE | 2020-02-14 08:23 | P.PN ---
Subjective Date of Service: 02/14/20 (Hospitalist) Primary Care Provider: Dr. Barnes; Neurology-Dr. Grimes Chief Complaint: Parkinson's Subjective: Improving (No change in patient's condition he is doing well the waiting transfer) Review of Systems Unremarkable Physical Examination - Vital Signs Temperature: 97.8 F Blood Pressure: 160/79 Pulse: 60 Respirations: 18 Pulse Ox (%): 97 - Physical Exam General: Alert, Cooperative Respiratory: Clear to auscultation bilaterally, Diminished - Studies Medications List Reviewed: Yes Assessment & Plan - Problems (Diagnosis) (1) Acute kidney injury Current Visit: No Status: Acute Plan: A patient is doing well on vital signs satisfactory blood pressure is little elevated kidney function has improved patient is eating and drinking cooperative labs reviewed
[2020-02-14] MEDS: MIDODRINE HCL 5 MG TABLET PO SCH ×3 (09:00→20:57)
[2020-02-14] MEDS: MEMANTINE HCL 10 MG TABLET PO SCH ×2 (09:02→12:10)
[2020-02-14] MEDS: VITAMIN D 1000 UNIT TAB PO SCH (09:02)
[2020-02-14] MEDS: ENOXAPARIN 40 MG/0.4 ML SQ SCH (09:02)
[2020-02-14] MEDS: POLYETHYL GLY 3350 17 GM/DOSE PO SCH (09:03)
[2020-02-14] MEDS: FOLIC ACID 1 MG TABLET PO SCH (09:03)
[2020-02-14] MEDS: MULTIVIT W/ MINERAL TAB PO SCH (09:04)
[2020-02-14] MEDS: THIAMINE HCL 100 MG TABLET PO SCH (09:04)
[2020-02-14] MEDS: ASPIRIN EC 81 MG TAB PO SCH (09:04)
[2020-02-14] MEDS: CARBIDOPA/LEVODOPA 25/250 TAB PO SCH ×4 (09:04→20:56)
[2020-02-14] MEDS: ATORVASTATIN 40 MG TAB PO SCH (20:56)
[2020-02-14] MEDS: MIRTAZAPINE 15 MG TAB PO SCH (20:56)
[2020-02-15] MEDS: MULTIVIT W/ MINERAL TAB PO SCH (08:31)
[2020-02-15] MEDS: ASPIRIN EC 81 MG TAB PO SCH (08:31)
[2020-02-15] MEDS: FOLIC ACID 1 MG TABLET PO SCH (08:33)
[2020-02-15] MEDS: CARBIDOPA/LEVODOPA 25/250 TAB PO SCH ×2 (08:33→13:26)
[2020-02-15] MEDS: VITAMIN D 1000 UNIT TAB PO SCH (08:35)
[2020-02-15] MEDS: THIAMINE HCL 100 MG TABLET PO SCH (08:35)
[2020-02-15] MEDS: MEMANTINE HCL 10 MG TABLET PO SCH ×2 (08:36→11:41)
[2020-02-15] MEDS: POLYETHYL GLY 3350 17 GM/DOSE PO SCH (08:38)
[2020-02-15] MEDS: MIDODRINE HCL 5 MG TABLET PO SCH ×2 (08:38→13:27)
[2020-02-15] MEDS: ENOXAPARIN 40 MG/0.4 ML SQ SCH ×2 (08:38→08:50)
[2020-02-15] MEDS ORDERED: LEVOTHYROXINE SOD 0.05 MG TABLET PO SCH (11:00)
--- NOTE | 2020-02-15 12:58 | P.DS ---
Discharge Date: 02/15/20 Primary Care Provider: Dr. Barnes; Neurology-Dr. Grimes Disposition: DC HOME/HOME HEALTH CARE Discharge Condition: GOOD Reason for Admission: Parkinson's Consultations: Nephrology Neurology Brief History of Present Illness: Patient is an 79-year-old male with history of Parkinson's hypertension, orthostatic hypotension, and hyperlipidemia. Patient was brought in by EMS due to altered mental status and hypotension. Patient apparently had been falling at home. EMS was called after a provider noted that he was on the ground. It is unclear how long he was on the ground. Patient had some confusion. Patient lives at home but receives caregiver services and looked after by his daughter. Patient denied any chest pain, shortness of breath. There is no mention of fever, cough. EMS report shows blood pressures around 50 systolic. Patient was given IV fluids in route. Upon further evaluation in the emergency room. Blood pressure much improved and stabilized. In the ER patient remained on IV fluids. Blood pressure now stable. Urinalysis unremarkable. Lactic acid unremarkable. Pro calcitonin unremarkable. Troponin unremarkable. CK unremarkable. CT head unremarkable. White count 3.9, hemoglobin 11.4. Potassium 4.9, sodium 143. BN of 28, creatinine 1.41 with a GFR 48. Glucose 125. COVID test pending. Patient was found to be hypothermic w ith a core temperature of 95. Patient was placed on Bear Hugger warmer. Patient admitted for further evaluation and observation. Patient appears stable in the emergency room. Daughter at bedside. Daughter reports patient has been falling a lot. Patient with underlying history of Parkinson's and dementia. It is been getting more difficult to take care of the patient. Patient currently lives alone with caregiver services. Daughter is looking to sending the patient in to a long-term care facility but this process has been difficult. Hospital Course: Patient's renal function has improved. Patient's neurologic status has improved. Clinically patient continues to improve and is stable for discharge to [facility] at this time. Patient will follow up as an outpatient. Patient renal function is stable. Neurologic status is stable as well. At this time, patient is stable for discharge home. Vital Signs/Physical Exam: Temp Pulse Resp BP Pulse Ox 97.9 F 61 15 120/66 99 02/15/20 12:00 02/15/20 12:00 02/15/20 12:00 02/15/20 12:00 02/15/20 12:00 General: Alert, In no apparent distress Laboratory Data at Discharge: WBC 5.6 K/uL (4.3-10.9) D 02/10/20 03:48 Hgb 10.9 g/dL (13.6-17.9) L 02/10/20 03:48 Hct 32.4 % (39.6-49.0) L 02/10/20 03:48 Plt Count 134 K/uL (152-406) L 02/10/20 03:48 Sodium 141 mmol/L (136-145) 02/14/20 05:54 Potassium 4.2 mmol/L (3.5-5.1) 02/14/20 05:54 BUN 22 mg/dL (7-18) H 02/14/20 05:54 Creatinine 1.15 mg/dL (0.55-1.3) 02/14/20 05:54 Glucose 83 mg/dL (74-106) 02/14/20 05:54 Magnesium 2.3 mg/dL (1.8-2.4) 02/10/20 03:48 Troponin I < 0.02 ng/mL (0.0-0.045) 02/10/20 00:15 Triglycerides 47 mg/dL (<150) 02/10/20 03:48 Cholesterol 168 mg/dL (<200) 02/10/20 03:48 HDL Cholesterol 60 mg/dL (40-60) 02/10/20 03:48 Cholesterol/HDL Ratio 2.80 02/10/20 03:48 Home Medications: Aspirin [Aspir-Low] 1 tab PO DAILY 06/08/19 Atorvastatin Calcium [Lipitor*] 0.5 tab PO BEDTIME 06/08/19 Carbidopa/Levodopa [Carbidopa-Levo 25-250 mg Odt] 1 tab PO QID 06/08/19 Midodrine HCl 2.5 mg PO TID 06/08/19 Mirtazapine [Remeron*] 15 mg PO BEDTIME 06/08/19 Mv-Mins/Folic/Lycopene/Ginkgo [One Daily Men's 50+ Tablet] 1 tab PO DAILY 06/08/19 Cholecalciferol (Vitamin D3) [Vitamin D 1000 Iu Tab*] 2,000 unit PO DAILY #30 tab 06/16/19 Memantine HCl [Namenda] 1 tab PO BREAKFAST 09/05/19 Memantine HCl [Namenda] 1 tab PO LUNCH 09/05/19 Ensure Enlive 237 ml PO BID PRN #60 can 02/11/20 Thiamine HCl [Vitamin B-1*] 100 mg PO DAILY #90 tablet 02/11/20 New Medications: Ensure Enlive 237 ml PO BID PRN #60 can PRN Reason: If PO intake is < 50% Thiamine HCl [Vitamin B-1*] 100 mg PO DAILY #90 tablet Patient Discharge Instructions: OK TO NE IV AND DC TO [facility]. FOLLOW- UP WITH PRIMARY CARE PROVIDER IN 1-2 WEEKS. FOLLOW-UP WITH NEUROLOGY IN 1-2 WEEKS. RETURN TO THE ER IF SYMPTOMS WORSEN. CALL or TEXT DR. VALLE AT [phone] IF ANY QUESTIONS REGARDING HOSPITAL STAY. PLEASE CALL THE FLOOR AT [phone] IF ANY MEDICATION OR NURSING QUESTIONS. Diet: Regular Activity: Fall precautions Time spent managing pt's care (in minutes): 35
[2020-02-15 13:59] VITALS: O2SAT 96
[2020-02-15 16:45] VITALS: BP 103/59; TEMP 97.8
== END 2020-02-15 16:56 | DRG 312 ==
LOC: ER 08:59 → ERHOLD 12:40 → 2ND 13:47 → OBSVTOIN 02-10 14:08
PROVIDERS: ADMIT Family Medicine; ATTEND Hospitalist
DX: I95.1 Orthostatic hypotension (principal); G93.41 Metabolic encephalopathy; N17.9 Acute kidney failure, unspecified; E86.0 Dehydration; T68.XXXA Hypothermia, initial encounter; F01.50 Vascular dementia, unspecified severity, without behavioral disturbance, psychotic disturbance, mood disturbance, and anxiety; G20 Parkinson's disease; G89.4 Chronic pain syndrome; E78.5 Hyperlipidemia, unspecified; C44.90 Unspecified malignant neoplasm of skin, unspecified; K21.9 Gastro-esophageal reflux disease without esophagitis; I12.9 Hypertensive chronic kidney disease with stage 1 through stage 4 chronic kidney disease, or unspecified chronic kidney disease; N18.30 Chronic kidney disease, stage 3 unspecified; N28.9 Disorder of kidney and ureter, unspecified; E86.1 Hypovolemia; E83.51 Hypocalcemia; D63.8 Anemia in other chronic diseases classified elsewhere; Z79.82 Long term (current) use of aspirin; Z60.2 Problems related to living alone; Z86.73 Personal history of transient ischemic attack (TIA), and cerebral infarction without residual deficits; Z66 Do not resuscitate; Z79.899 Other long term (current) drug therapy; Z90.49 Acquired absence of other specified parts of digestive tract; Z91.81 History of falling; Z20.828 Contact with and (suspected) exposure to other viral communicable diseases
CPT/HCPCS: 36415; 51702; 70450; 80048; 80061; 81003; 81015; 82550; 82553; 82607; 82728; 83540; 83605; 83735; 84145; 84439; 84443; 84466; 84484; 85025; 87040; 87086; 87088; 93005; 97112; 97116; 97161; 97165; 97530; 99285; G0378; J1650; J7030; U0003

== ENCOUNTER 2020-05-11 11:33 | Observation (INO) | payer MEDICARE ==
--- OUTSIDE RECORDS SUMMARY | 2020-05-11 11:35 | XMS REPORT | Clinical Summary ---
:1940 Author Organization [facility] Address [address] [place] [address] Care Team Providers Name Role Phone Rafa [...] PNEUMOCOCCAL 65+ YRS (1 of 1 - [id number]) 2003 MEDICARE ANNUAL WELLNESS (YEAR 2 or FIRST YEAR if no 04/30/2018 IPPE) INFLUENZA VACCINE (#1) 2019 DEPRESSION SCREENING (12+) 04/29/2020 Results Not on fileafter 05/11/2019 Insurance Payer Benefit Plan / Subscriber ID Effective Dates Phone Addre ss Type Group [facility]/MEDICARE [id number] 2018-Present MEDICARE MGD CARE COMPLETE Advance Directives For more information, please contact: [phone] Type Date Recorded 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
--- OUTSIDE RECORDS SUMMARY | 2020-05-11 11:36 | XMS REPORT | Continuity of Care Document ---
:1940 Author Organization [facility] t Address [address] [place] [address] Care Team Providers Name Role Phone Corin [...] [facility] unspecifie unspecifie 06-27 Sindi kes - d syncope d syncope 00:00: [facility] libby type type 00 Center Allergies, Adverse Reactions, Alerts Allergy Allergy Status Severity Reaction(s) Onset Inactive Treating Comm ents Source Name Type Date Date Clinician No Known DA Active U [facility] Allergie 07-28 [facility] 00:00: [address] Social History Social Habit Start Date Stop Date Quantity Comments Source History SDOH [facility] Std Dr[facility] Medica l Center History SDOH [facility] - Alcohol Binge Medical [address] ter Sex Assigned At [facility] Tobacco use and 2018-06-27 2018-06-27 Never used [facility] St Sindi kes - exposure 00:00:00 00:00:00 [facility] Alcohol intake 2018-06-27 2018-06-27 [facility]00 non-drinker of Medical [...] [facility]ukes - tablet 16:29: daily. Medical [address] atorvastati Yes 20mg QD Take [address] [facility] (LIPITOR) 3-05 by mouth Luke s - 20 MG 16:29: daily. Medical tablet [address] carbidopa-l Yes 1{tbl} [id number] Take [address] evodopa 3-05 [id number] tablet by L es - (SINEMET) 16:29: 3D mouth 3 Medic [...] s - 16:29: mouth Medical 26 daily. [address] metoprolol 2020- 12.5mg Q.5D Take 0.[address] (LOPRESSOR) 3-05 03-04 tablets Luke s - 25 MG 00:00: 23:59 (12.5 mg Medical tablet 00 :00 total) by Center mouth 2 (two) times daily. Procedures This patient has no known procedures. Plan of Care Planned Activity Planned Date Details Comments Source Future Scheduled 2020-04-[address] [facility] - Test 00:00:00 (12+) [code = Medical Center DEPRESSION SCREENING (12+)] Future Scheduled 2019-12-29 INFLUENZA VACCINE (#1) C [...] 00:00:00 (1 of 1 - Medical Center [id number] PCV13) [code = PNEUMOCOCCAL 65+ YRS (1 of 1 - [id number] PCV13)] Results Test Description Test Time Test Comments Results Result Comments Source TROPONIN-I 2018-07-29 09:26:00 Test Item Value Reference Range Interpretation Comme nts TROPONIN-I (test code = TROPI) < 0.012 NG/ML 0.012-0.033 L Q 6HRS. [id number] 03:54:00 Test Item Value Reference Range Interpretation Comments TROPONIN-I (test code = TROPI) < 0.012 NG/ML 0.012-0.033 L [id number] 21:09:00 Test Item Value Reference Range Interpretation Comments TROPONIN-I (test code = TROPI) < 0.012 NG/ML 0.012-0.033 L COMPREHENSIVE METABOLIC [id number] 17:26:00 Test Item Value Reference Range Interpretation [...] UNITS/L 38-126 N (test code = ALKP) [id number] 17:26:00 Test Item Value Reference Range Interpretation Comments PHOSPHOROUS (test code = PHOS) 3.4 MG/DL 2.5-4.5 N [id number] 17:26:00 Test Item Value Reference Range Interpretation Comments MAGNESIUM (test code = MAG) 2.3 MG/DL 1.6-2.3 N TROPONIN I [id number] 17:09:00 Test Item Value Reference Range Interpretation Comments TROPONIN I RAPID (test code = 0.01 NG/ML 0.00-0.05 N TROPIRAP) CBC W/AUTO [id number] 17:09:00 Test Item Value Reference Range Interpretation [...] K/mm3 0.0-0.1 N NRBC#) - XR CHEST [id number] 16:56:00 Patient Name: CARINA SAMANIEGO Unit No: [id number] EXAMS: CPT CODE: [id number] XR CHEST 1V 20225 EXAMINATION: - XR CHEST 1V. LOCATION: B2. [...] Technologist: Carolina Sherman, RT(R) Transcrpt Date/Tm/Trnsp: 07/28/2018 (9805) CassPR7 Orig Print D/T: S: 07/28/2018 (3972) [facility] NAME: CARINA SAMANIEGO [id number] PHYS: [place] [address] : 1940 AGE: 78 SEX: M LOC: ANSHU PHONE #: [phone] EXAM DATE: 07/28/2018 STATUS: PRE ER FAX #: [phone] RADIOLOGY NO: PAGE 1 Signed ReportBLOOD [id number] 11:02:00 Test Item Value Reference Range Interpretation Comments CULTURE (BEAKER) (test No growth in 5 days code = 1095) BLOOD [id number] 11:02:00 Test Item Value Reference Range Interpretation Comments CULTURE (BEAKER) (test No growth in 5 days code = 1095) COMPREHENSIVE METABOLIC [id number] 13:41:00 Test Item Value Reference Range Interpretation [...] S NOT APPLICABLE FOR DIALYSIS PATIEN TS. [id number] 13:24:00 Test Item Value Reference Range Interpretation Comments MAGNESIUM (BEAKER) (test code = 1.9 mg/dL 1.6-2.6 627) [id number] 13:24:00 Test Item Value Reference Range Interpretation Comments LIPASE (BEAKER) (test code = 749) 521 U/L 8-78 H U/S, ABDOMINAL, [id number] 11:30:00Abdomen limited area? Add comment if clarification [...] six months to document stability. Signed: Shaheed Benjamineport Verified Date/Time: 07/01/2018 11:30:04 Reading Location: [facility] B1 P006J Ultrasound Reading Room [id number] 06:07:00 Test Item Value Reference Range Interpretation Comments MAGNESIUM (BEAKER) (test code = 2.1 mg/dL 1.6-2.6 627) BASIC METABOLIC [id number] 06:07:00 Test Item Value Reference Range Interpretation [...] PATIEN TS. CBC W/PLT COUNT & AUTO [id number] 06:04:00 Test Item Value Reference Range Interpretation [...] 0-1 PERCENT (BEAKER) (test code = 2801) [id number] 10:30:00 Test Item Value Reference Range Interpretation Comments MAGNESIUM (BEAKER) (test code = 1.9 mg/dL 1.6-2.6 627) CBC W/PLT COUNT & AUTO [id number] 07:07:00 Test Item Value Reference Range Interpretation [...] (BEAKER) (test code = 2801) BASIC METABOLIC [id number] 06:31:00 Test Item Value Reference Range Interpretation [...] APPLICABLE FOR DIALYSIS PATIEN TS. BASIC METABOLIC [id number] 06:27:00 Test Item Value Reference Range Interpretation [...] ESTIMATED GFR. CBC W/PLT COUNT & AUTO [id number] 05:45:00 Test Item Value Reference Range Interpretation [...] (test code = 2801) CT, BRAIN, WITHOUT [id number] 23:42:00FINAL REPORT CT, BRAIN, WITHOUT CONTRAST CLINICAL [...] MDReport Verified Date/Time: 06/27/2018 23:42:40 Reading Location: [facility] C013 Neuro Reading Room URINALYSIS W/ REFLEX URINE [id number] 21:57:00 Test Item Value Reference Range Interpretation [...] = 2795) RAD, CHEST, 1 VIEW, NON [id number] 21:14:00Reason for exam:->LOSS OF CONSCIOUSNESSShould this be performed at the bedside?->YesFINAL REPORT INDICATION: LOSS OF CONSCIOUSNESS COMPARISON: None TECHNIQUE: Single frontal view of the chest. FINDINGS: Lungs and pleura: Clear lungs. No effusion.Heart and mediastinum: Normal heart size. Unremarkable mediastinal contours.Osseous structures: No acute abnormality.Other: None. IMPRESSION: No acute intrathoracic abnormality. Signed: Nick Gutierrezepjr Verified Date/Time: 06/27/2018 21:14:39 Reading Location: [address] Neuro Reading Room [id number] 20:36:00 Test Item Value Reference Range Interpretation Comments MAGNESIUM (BEAKER) (test code = 2.0 mg/dL 1.6-2.6 627) [id number] 20:36:00 Test Item Value Reference Range Interpretation Comments PHOSPHORUS (BEAKER) (test code = 2.9 mg/dL 2.3-4.7 604) TROPONIN [id number] 19:30:00 Test Item Value Reference Range Interpretation [...] 0-100 (test code = 700) BASIC METABOLIC [id number] 19:28:00 Test Item Value Reference Range Interpretation [...] m DATA TO CALCULA TE ESTIMATED GFR. [id number] 19:24:00 Test Item Value Reference Range Interpretation Comments LIPASE (BEAKER) (test code = 749) 229 U/L 8-78 H HEPATIC FUNCTION [id number] 19:24:00 Test Item Value Reference Range Interpretation [...] 6-55 347) CBC W/PLT COUNT & AUTO [id number] 19:05:00 Test Item Value Reference Range Interpretation [...]
[2020-05-11 12:14] LABS: Protime INR 0.95
--- NOTE | 2020-05-11 12:17 | RAD REPORT ---
EXAM DESCRIPTION: CT - Head Brain Wo Cont - 05/11/2020 12:04 pm CLINICAL HISTORY: AMS, syncope Headache, drowsiness COMPARISON: Head Brain Wo Cont dated 02/09/2020; Head Brain Wo Cont dated 09/24/2018 TECHNIQUE: All CT scans are performed using dose optimization technique as appropriate and may inclu de automated exposure control or mA/KV adjustment according to patient size. FINDINGS: No intracranial hemorrhage, hydrocephalus or extra-axial fluid collection.Mild brain atrop hy.No areas of brain edema or evidence of midline shift. Mild fluid is seen in both mastoid air cells. The paranasal sinuses are clear. The calvarium is intac t. IMPRESSION: No acute intracranial abnormality. Mild bilateral mastoid effusions.
[2020-05-11 12:21] LABS: BUN Blood Urea Nitrogen 32 mg/dL (7-18); Bicarbonate 26 mmol/L (21-32); Creatine Phosphokinase 56 U/L (39-308); Glucose Level 172 mg/dL (74-106); Magnesium 2.6 mg/dL (1.8-2.4); NT PRO-BNP 391 pg/mL (<450); Potassium 4.3 mmol/L (3.5-5.1); Sodium Level 141 mmol/L (136-145); Troponin (Emerg Dept Use Only) < 0.02 ng/mL (0.0-0.045)
[2020-05-11 12:24] LABS: Absolute Lymphocytes (CBC) 1.1 K/uL (0.7-4.9); Basophils % 0.7 % (0-1.3); Hematocrit 30.2 % (39.6-49.0); Lymphocytes % 30.2 % (15.3-44.8); MPV 8.1 fL (7.6-11.3); RBC Red Blood Cell Count 3.12 M/uL (4.33-5.43)
[2020-05-11 12:54] LABS: SARS-COV-2 RT PCR NEGATIVE (NEGATIVE)
[2020-05-11 13:43] LABS: Urine Blood NEGATIVE (NEG); Urine Glucose NEGATIVE (NEG); Urine Protein NEGATIVE (NEG); Urine Specific Gravity 1.025 (1.005-1.030); Urine pH 5.5 (5.0-7.0)
--- NOTE | 2020-05-11 13:51 | ER ---
Nurse's Notes [facility] Name: Sumanth Louis Age: 80 yrs Sex: Male : 1940 Arrival Date: 05/11/2020 Time: 11:36 Bed 7 Private MD: Diagnosis: Orthostatic hypotension;Dehydration;Syncope and collapse Presentation: 05/11 11:48 Chief complaint: EMS states: family reported pt slumped down and went unresponsive, EMS iw reports pt was hypotensive on scene 70's systolic, gave 700 ml NS , pt Alert and oriented to norm on arrival. 11:48 Method Of Arrival: EMS: [facility] iw 11:48 Care prior to arrival: Medication(s) given: Normal saline infusion, 500 mL, IV aa5 initiated. 18 GA, Glucose check: 233. 11:49 Ebola Screen: Patient negative for fever greater than or equal to 101.5 degrees iw Fahrenheit, and additional compatible Ebola Virus Disease symptoms Patient denies exposure to infectious person. Patient denies travel to an Ebola-affected area in the 21 days before illness onset. No symptoms or risks identified at this time. Initial Sepsis Screen: Does the patient meet any 2 criteria? No. Patient's initial sepsis screen is negative. Does the patient have a suspected source of infection? No. Patient's initial sepsis screen is negative. Risk Assessment: Do you want to hurt yourself or someone else? Patient reports no desire to harm self or others. 11:49 Acuity: IRINA 3 iw 12:00 Coronavirus screen: At this time, the client does not indicate any symptoms associated bp with coronavirus-19. Onset of symptoms is unknown. Triage Assessment: 11:45 General: Appears in no apparent distress. comfortable, slender, unkempt, Behavior is bp calm, cooperative. Pain: Denies pain. EENT: No deficits noted. Neuro: Level of Consciousness is awake, obeys commands, Oriented to none. Cardiovascular: No deficits noted. Respiratory: No deficits noted. GI: No signs and/or symptoms were reported involving the gastrointestinal system. : No signs and/or symptoms were reported regarding the genitourinary system. Derm: No deficits noted. Musculoskeletal: No deficits noted. Historical: - Allergies: 11:40 No Known Allergies; aa5 - Home Meds: 15:58 aspirin 81 mg Oral TbEC 1 tab once daily [Active]; atorvastatin 20 mg Oral tab 1 tab iw once daily [Active]; carbidopa-levodopa 25-250 mg Oral tab 1 tab 4 times per day [Active]; donepezil 5 mg Oral tab 1 tab once daily [Active]; fludrocortisone 0.1 mg Oral tab 1 tab once daily [Active]; loratadine 10 mg Oral tab 1 tab once daily [Active]; metoprolol tartrate 25 mg Oral tab 0.5 tab 2 times per day [Active]; Mirtazapine Oral [Active]; One-A-Day Men's Multivitamin 400-300 mcg Oral tab daily [Active]; pantoprazole 40 mg Oral TbEC 1 tab once daily [Active]; memantine Oral [Active]; - PMHx: 11:40 Anemia; Anxiety; Bilateral deafness; Bilateral degeneration of macula; BPH; CHF; aa5 chronic pain syndrome; CVA; Dementia; Difficulty swallowing; Essential Hypertension; Hernia; Hypertension; Inguinal hernia R; LOCALIZED EDEMA; Orthostatic hypotension; osteoarthritis; PAD; Pancreatitis; Parkinsons; Peripheral arterial occlusive disease; Vitamin D3 deficiency; - PSHx: 11:40 Appendectomy; aa5 - Immunization history:: Adult Immunizations up to date. - Social history:: Smoking status: Reported history of juuling and/or vaping. - Family history:: not pertinent. - Hospitalizations: : No recent hospitalization is reported. Screenin:43 Abuse screen: Denies threats or abuse. Denies injuries from another. iw 11:45 Nutritional screening: No deficits noted. bp 11:45 Tuberculosis screening: No symptoms or risk factors identified. Fall Risk No fall in bp past 12 months (0 pts). IV access (20 points). Assessment: 11:45 General: SEE TRIAGE NOTE. bp 13:00 Reassessment: No changes from previously documented assessment. Patient and/or family bp updated on plan of care and expected duration. Pain level reassessed. Patient is alert, oriented x 3, equal unlabored respirations, skin warm/dry/pink. PT RETURNED FROM CT. ALL CURRENT ORDERS COMPLETED. 14:52 Reassessment: Patient appears in no apparent distress at this time. Patient and/or iw family updated on plan of care and expected duration. Pain level reassessed. pt requested warm blanket, rec'd call from daughter and POA Megha Monique, states he has problems staying hydrated, pt forgets or refuses to drink fluids at home, has been seen several times in ER for similar issues. 16:39 Reassessment: No changes from previously documented assessment. Patient and/or family bp updated on plan of care and expected duration. Pain level reassessed. Patient is alert, oriented x 3, equal unlabored respirations, skin warm/dry/pink. ADMIT IN PROCESS. Vital Signs: 11:47 BP 126 / 50; Pulse 57; Resp 16; Temp 97.0; Pulse Ox 96% on R/A; iw 12:36 BP 132 / 60; Pulse 53; Resp 16; Pulse Ox 100% on R/A; iw 13:30 BP 137 / 66; Pulse 56; Resp 13; Pulse Ox 100% ; bp 14:30 BP 158 / 71; Pulse 63; Resp 21; Pulse Ox 100% ; bp 15:30 BP 133 / 66; Pulse 59; Resp 18; Pulse Ox 100% ; bp 16:30 BP 134 / 52; Pulse 61; Resp 14; Pulse Ox 100% ; bp 19:30 BP 179 / 71; Pulse 62; Resp 16; Pulse Ox 98% on R/A; rv 22:34 BP 150 / 97; Pulse 62; Resp 16; Pulse Ox 98% on R/A; rv ED Course: 11:36 Patient arrived in ED. aa5 11:36 Arm band placed on. aa5 11:38 Arvin Armendariz MD is Attending Physician. rn 11:42 Maintain EMS IV. Dressing intact. Good blood return noted. Site clean \T\ dry. Gauge \T\ iw site: 18 right wrist. 11:43 Uziel Ochoa, RN is Primary Nurse. bp 11:49 Triage completed. iw 12:04 CT Head Brain wo Cont In Process Unspecified. EDMS 12:46 Patient has correct armband on for positive identification. Bed in low position. Call bp light in reach. Side rails up X2. 13:50 Juan Diego Mccormick MD is Hospitalizing Provider. rn 16:39 No provider procedures requiring assistance completed. Patient admitted, IV remains in bp place. 20:41 Primary Nurse role handed off by Uziel Ochoa, RN sg 22:12 Bong Handy, SOCORRO is Primary Nurse. rv Administered Medications: 11:59 Drug: NS 0.9% 500 ml Route: IV; Rate: bolus; Site: right wrist; iw 16:42 Follow up: IV Status: Completed infusion; IV Intake: 500ml bp Point of Care Testing: Blood Glucose: 11:45 Blood Glucose: 171 mg/dL; aa5 Ranges: Intake: 16:42 IV: 500ml; Total: 500ml. bp Outcome: 13:50 Decision to Hospitalize by Provider. rn 20:18 Admitted to ER Hold. Please see [facility] for further documentation. rv 20:18 Condition: good 20:18 Instructed on the need for admit. 22:40 Patient left the ED. rv 22:40 Admitted to Med/surg accompanied by tech, via stretcher, room 219, with chart, Report ea called to Receiving nurse on second floor Signatures: Dispatcher [employer] EDMS Kd Ortiz, RN RN sg Ange Acosta RN RN Arvin Armendariz MD MD rn Calderon, Audri RN RN aa5 Natali Bonilla RN Uziel Pool ea RN SOCORRO bp Bong Handy, RN RN rv Corrections: (The following items were deleted from the chart) 12:45 12:44 General: SEE TRIAGE NOTE. bp bp 13:42 13:00 BP 137 / 66; Pulse 56bpm; Resp 13bpm; Pulse Ox 100%; bp bp
--- NOTE | 2020-05-11 13:51 | EDPHYS ---
Physician Documentation [facility] Name: Sumanth Louis Age: 80 yrs Sex: Male : 1940 Arrival Date: 05/11/2020 Time: 11:36 Bed 7 Private MD: ED Physician Arvin Armendariz HPI: 05/11 13:38 This 80 yrs old Male presents to ER via EMS with complaints of Altered Mental rn Status, syncope. 13:38 The patient has experienced syncope. Onset: The symptoms/episode began/occurred just rn prior to arrival. Duration: This was a single episode. Associated injury: The patient did not suffer any apparent associated injury. Associated signs and symptoms: Pertinent positives: confusion, Pertinent negatives: abdominal pain, blurred vision, chest pain, shortness of breath, vomiting. Current symptoms: Currently, the patient is not experiencing any symptoms. The patient has experienced a previous episode. The patient has not recently seen a physician. Per report, was with caregiver, became unresponsive, no fever, BP was low for EMS, improved with fluids, and nearly back to baseline. Denies chest pain/sob/abd pain.. Historical: - Allergies: 11:40 No Known Allergies; aa5 - Home Meds: 15:58 aspirin 81 mg Oral TbEC 1 tab once daily [Active]; atorvastatin 20 mg Oral tab 1 tab iw once daily [Active]; carbidopa-levodopa 25-250 mg Oral tab 1 tab 4 times per day [Active]; donepezil 5 mg Oral tab 1 tab once daily [Active]; fludrocortisone 0.1 mg Oral tab 1 tab once daily [Active]; loratadine 10 mg Oral tab 1 tab once daily [Active]; metoprolol tartrate 25 mg Oral tab 0.5 tab 2 times per day [Active]; Mirtazapine Oral [Active]; One-A-Day Men's Multivitamin 400-300 mcg Oral tab daily [Active]; pantoprazole 40 mg Oral TbEC 1 tab once daily [Active]; memantine Oral [Active]; - PMHx: 11:40 Anemia; Anxiety; Bilateral deafness; Bilateral degeneration of macula; BPH; CHF; aa5 chronic pain syndrome; CVA; Dementia; Difficulty swallowing; Essential Hypertension; Hernia; Hypertension; Inguinal hernia R; LOCALIZED EDEMA; Orthostatic hypotension; osteoarthritis; PAD; Pancreatitis; Parkinsons; Peripheral arterial occlusive disease; Vitamin D3 deficiency; - PSHx: 11:40 Appendectomy; aa5 - Immunization history:: Adult Immunizations up to date. - Social history:: Smoking status: Reported history of juuling and/or vaping. - Family history:: not pertinent. - Hospitalizations: : No recent hospitalization is reported. ROS: 13:38 Constitutional: Negative for fever, chills, and weight loss, Eyes: Negative for injury, rn pain, redness, and discharge, Neck: Negative for injury, pain, and swelling, Cardiovascular: Negative for chest pain, palpitations, and edema, Respiratory: Negative for shortness of breath, cough, wheezing, and pleuritic chest pain, Abdomen/GI: Negative for abdominal pain, nausea, vomiting, diarrhea, and constipation, Back: Negative for injury and pain, : Negative for injury, bleeding, discharge, and swelling, MS/Extremity: Negative for injury and deformity, Skin: Negative for injury, rash, and discoloration, Neuro: Negative for numbness, tingling, and seizure. Exam: 13:38 Constitutional: This is a well developed, well nourished patient who is awake, alert, rn and in no acute distress. Head/Face: Normocephalic, atraumatic. ENT: dry MM Cardiovascular: Bradycardic, regular. No pulse deficits. Respiratory: No increased work of breathing, no retractions or nasal flaring. Abdomen/GI: soft, non-tender Skin: Warm, dry MS/ Extremity: Pulses equal, no cyanosis. Neuro: Awake and alert, GCS 15, 4/5 strength throughout, moves all 4 ext Vital Signs: 11:47 BP 126 / 50; Pulse 57; Resp 16; Temp 97.0; Pulse Ox 96% on R/A; iw 12:36 BP 132 / 60; Pulse 53; Resp 16; Pulse Ox 100% on R/A; iw 13:30 BP 137 / 66; Pulse 56; Resp 13; Pulse Ox 100% ; bp 14:30 BP 158 / 71; Pulse 63; Resp 21; Pulse Ox 100% ; bp 15:30 BP 133 / 66; Pulse 59; Resp 18; Pulse Ox 100% ; bp 16:30 BP 134 / 52; Pulse 61; Resp 14; Pulse Ox 100% ; bp 19:30 BP 179 / 71; Pulse 62; Resp 16; Pulse Ox 98% on R/A; rv 22:34 BP 150 / 97; Pulse 62; Resp 16; Pulse Ox 98% on R/A; rv MDM: 11:38 Patient medically screened. rn 13:38 Differential Diagnosis: cardiac arrhythmia, idiopathic syncope, transient ischemic rn attack, vasovagal episode, orthostatic hypotension, syncope. Data reviewed: vital signs, nurses notes, lab test result(s), EKG, radiologic studies, CT scan, and as a result, I will discharge patient. Counseling: I had a detailed discussion with the patient and/or guardian regarding: the historical points, exam findings, and any diagnostic results supporting the discharge/admit diagnosis, lab results, radiology results, the need for further work-up and treatment in the hospital. Response to treatment: the patient's symptoms have markedly improved after treatment, and as a result, I will discharge patient. Special discussion:. ED course: Pt improved with time and fluids, ct head nothing acute, lactate elevated, will admit to Dr. Mccormick for observation . 05/11 11:46 Order name: Basic Metabolic Panel; Complete Time: 12:05/11 11:46 Order name: CBC with Diff; Complete Time: 12: rn 05/11 11:46 Order name: CPK; Complete Time: :05/11 11:46 Order name: Magnesium; Complete Time: 12:05/11 11:46 Order name: Protime (+inr); Complete Time: 12:05/11 11:46 Order name: Ptt, Activated; Complete Time: 12:05/11 11:46 Order name: Troponin (emerg Dept Use Only); Complete Time: 12:05/11 11:46 Order name: BNP; Complete Time: 12:05/11 11:47 Order name: Procalcitonin; Complete Time: rn 05/11 11:47 Order name: Lactate; Complete Time: 05/11 11:48 Order name: Glucose, Ancillary Testing; Complete Time: 12: EDCT 05/11 11:49 Order name: Glucose, Ancillary Testing EDMS 05/11 11:46 Order name: CT Head Brain wo Cont; Complete Time: 12:05/11 11:46 Order name: EKG; Complete Time: 11:47 rn 05/11 11:46 Order name: Cardiac monitoring; Complete Time: 11:59 rn 05/11 11:46 Order name: EKG - Nurse/Tech; Complete Time: 11:59 rn 05/11 11:46 Order name: IV Saline Lock; Complete Time: 11:59 rn 05/11 11:46 Order name: Labs collected and sent; Complete Time: 11:59 rn 05/11 11:46 Order name: NPO; Complete Time: 11:59 rn 05/11 11:46 Order name: O2 Per Protocol; Complete Time: 11:59 rn 05/11 11:46 Order name: O2 Sat Monitoring; Complete Time: 11:59 rn 05/11 11:46 Order name: Urine Dipstick-Ancillary (obtain specimen); Complete Time: 12:34 rn 05/11 12:54 Order name: COVID-19/FLU A+B; Complete Time: 13:31 EDCT 05/11 13:40 Order name: Urine Dipstick--Ancillary (enter results) bd 05/11 17:42 Order name: Lactate Sepsis 2 HR Follow-up EDCT 05/11 21:13 Order name: Troponin I EDCT Administered Medications: 11:59 Drug: NS 0.9% 500 ml Route: IV; Rate: bolus; Site: right wrist; iw 16:42 Follow up: IV Status: Completed infusion; IV Intake: 500ml bp Point of Care Testing: Blood Glucose: 11:45 Blood Glucose: 171 mg/dL; aa5 Ranges: Critical Glucose Levels:Adult <50 mg/dl or >400 mg/dl <40 mg/dl or >180 mg/dl Disposition: 05/11/20 13:50 Hospitalization ordered by Juan Diego Mccormick for Observation. Preliminary diagnosis are Orthostatic hypotension, Dehydration, Syncope and collapse. - Bed requested for Telemetry/MedSurg (observation). - Status is Observation. rv - Condition is Stable. - Problem is an ongoing problem. - Symptoms have improved. Signatures: Dispatcher [employer] EDCT Elyse Hernandez RN RN dw Williams, Irene, RN RN iw Arvin Armendariz MD MD rn Calderon, Audri, RN RN aa5 Bong Handy RN RN rv Peltier, Brian RN bp Corrections: (The following items were deleted from the chart) 12:10 11:47 CORONAVIRUS+MR.LAB.BRZ ordered. EDMS EDMS 12:13 11:47 Influenza Screen (A \T\ B)+BA.LAB.BRZ ordered. EDMS EDMS 16:22 13:50 Hospitalization Ordered by Juan Diego Mccormick MD for Observation. Preliminary iw diagnosis is Orthostatic hypotension; Dehydration; Syncope and collapse. Bed requested for Telemetry/MedSurg (observation). Status is Observation. Condition is Stable. Problem is an ongoing problem. Symptoms have improved. rn 22:03 16:22 05/11/2020 13:50 Hospitalization Ordered by Juan Diego Mccormick MD for Observation. dw Preliminary diagnosis is Orthostatic hypotension; Dehydration; Syncope and collapse. Bed requested for [facility] ER HOLD. Status is Observation. Condition is Stable. Problem is an ongoing problem. Symptoms have improved. iw 22:40 22:03 05/11/2020 13:50 Hospitalization Ordered by Juan Diego Mccormick MD for Observation. rv Preliminary diagnosis is Orthostatic hypotension; Dehydration; Syncope and collapse. Bed requested for Telemetry/MedSurg (observation). Status is Observation. Condition is Stable. Problem is an ongoing problem. Symptoms have improved. dw
--- NOTE | 2020-05-11 16:10 | EKG ---
Test Date: 2020-05-11 Test Time: 11:41:47 [employer] Librarian: DARISU MEASUREMENT RESULTS: Intervals: Rate: 55 IN: 110 QRSD: 90 QT: 470 QTc: 449 [place]: P: 41 IN: 110 QRS: 51 T: 61 INTERPRETIVE STATEMENTS: Sinus bradycardia with short IN Otherwise normal ECG Compared to ECG 02/09/2020 09:17:28 Short IN interval now present ST (T wave) deviation no longer present Electronically Signed On 05-11-20 16:08:34 [employer] by Franco Preciado
[2020-05-11] MEDS ORDERED: ACETAMINOPHEN 500 MG TAB PO PRN (16:20)
[2020-05-11] MEDS ORDERED: MORPHINE 2 MG/ML SYR IV PRN (16:20)
[2020-05-11] MEDS ORDERED: ALPRAZOLAM 0.25 MG TABLET PO PRN (16:20)
[2020-05-11 16:57] VITALS: BMI 20.3
[2020-05-12 04:30] LABS: Absolute Lymphocytes (CBC) 1.5 K/uL (0.7-4.9); Basophils % 0.7 % (0-1.3); Hematocrit 27.6 % (39.6-49.0); Lymphocytes % 37.9 % (15.3-44.8); RBC Red Blood Cell Count 2.92 M/uL (4.33-5.43)
[2020-05-12 04:54] LABS: Potassium 4.3 mmol/L (3.5-5.1); Troponin I 0.04 ng/mL (0.0-0.045)
[2020-05-12] MEDS ORDERED: ENOXAPARIN 40 MG/0.4 ML SQ SCH (09:00)
[2020-05-12] MEDS ORDERED: ASPIRIN EC 81 MG TAB PO SCH ×2 (09:00→09:39)
--- NOTE | 2020-05-12 09:44 | P.HP ---
Certification for Inpatient Patient admitted to: Observation With expected LOS: <2 Midnights Patient will require the following post-hospital care: Home Health Services Practitioner: I am a practitioner with admitting privileges, knowledge of patient current condition, hospital course, and medical plan of care. Services: Services provided to patient in accordance with Admission requirements found in Title 42 Section 412.3 of the Code of Federal Regulations Patient History Date of Service: 05/11/20 Reason for admission: Syncope History of Present Illness: Patient is an 80-year-old gentleman [facility] Patient has history of orthostasis. Patient is also has significant Parkinson's disease. He he has had similar issues in the past. He was brought in for further evaluation. In the ER he had no arrhythmias. He was feeling like he was back to his baseline. Patient takes his Parkinson's medicines add 8-12-4-8. Will need to keep him on the schedule. He follows up with Neurology and will recommend this once his workup is completed. At this time will get syncope workup with carotid Doppler and echocardiogram. Allergies No Known Allergies Allergy (Verified 06/07/19 21:10) Home Medications: Aspirin [Aspir-Low] 1 tab PO DAILY 06/08/19 Atorvastatin Calcium [Lipitor*] 0.5 tab PO BEDTIME 06/08/19 Carbidopa/Levodopa [Carbidopa-Levo 25-250 mg Odt] 1 tab PO QID 06/08/19 Midodrine HCl 2.5 mg PO TID 06/08/19 Mirtazapine [Remeron*] 15 mg PO BEDTIME 06/08/19 Mv-Mins/Folic/Lycopene/Ginkgo [One Daily Men's 50+ Tablet] 1 tab PO DAILY 06/08/19 Cholecalciferol (Vitamin D3) [Vitamin D 1000 Iu Tab*] 2,000 unit PO DAILY #30 tab 06/16/19 Memantine HCl [Namenda] 1 tab PO BREAKFAST 09/05/19 Memantine HCl [Namenda] 1 tab PO LUNCH 09/05/19 Ensure Enlive 237 ml PO BID PRN #60 can 02/11/20 Thiamine HCl [Vitamin B-1*] 100 mg PO DAILY #90 tablet 02/11/20 - Past Medical/Surgical History Has patient received pneumonia vaccine in the past: Yes Diabetic: No -: Parkinson's -: 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 He is . Daughter has medical power of deputy county attorney. - Family History Mother Medical History: Lung disease, GI disease Notes: pancreatitis. diverticulitis Father Medical History: Diabetes - Social History Smoking Status: Unknown if ever smoked Review of Systems 10-point ROS is otherwise unremarkable Physical Examination - Vital Signs Temperature: 98.1 F Blood Pressure: 114/46 Pulse: 62 Respirations: 16 Pulse Ox (%): 96 - Physical Exam General: Alert, In no apparent distress, Oriented x3, Other (Patient with stuttering related to Parkinson's disease) HEENT: Atraumatic, PERRLA, Mucous membr. moist/pink, EOMI, Sclerae nonicteric Neck: Supple, 2+ carotid pulse no bruit, No LAD, Without JVD or thyroid abnormality Respiratory: Clear to auscultation bilaterally, Normal air movement Cardiovascular: Regular rate/rhythm, Normal S1 S2, No murmurs Gastrointestinal: Normal bowel sounds, Soft and benign, Non-distended, No tenderness Musculoskeletal: No clubbing, No swelling, No tenderness Integumentary: No rashes Neurological: Sensation intact, Cranial nerves 3-12 intact, Abnormal gait, Abnormal speech, Abnormal strength, Abnormal tone, Abnormal affect Lymphatics: No axilla or inguinal lymphadenopathy - Studies Laboratory Data (last 24 hrs) 05/11/20 11:50: PT 11.2, INR 0.95, APTT 26.0 05/11/20 11:50: WBC 3.8 L, Hgb 9.8 L, Hct 30.2 L, Plt Count 140 L 05/11/20 11:50: Sodium 141, Potassium 4.3, BUN 32 H, Creatinine 1.63 H, Glucose 172 H, Magnesium 2.6 H Assessment & Plan - Problems (Diagnosis) (1) Syncope Current Visit: Yes Status: Acute (2) Parkinsons disease Onset Date: 02/05/18 Current Visit: No Status: Chronic - Plan Plan: 1. Gentle hydration 2. Continue with medication for Parkinson's disease 3. Carotid Doppler and echocardiogram 4. Monitor on telemetry 5. Anticipate discharge home in the morning if patient is doing well Discharge Plan: Home Plan to discharge in: 24 Hours - Advance Directives Does patient have a Living Will: No Does patient have a Durable POA for Healthcare: No - Code Status/Comfort Care Code Status Assessed: Yes Code Status: Full Code Critical Care: No Time Spent Managing PTS Care (In Minutes): 45
--- NOTE | 2020-05-12 09:48 | P.DS ---
Discharge Date: 05/12/20 Disposition: ROUTINE DISCHARGE Discharge Condition: GOOD Reason for Admission: Syncope - Problems (1) Syncope Status: Acute (2) Parkinsons disease Onset Date: 02/05/18 Status: Chronic Brief History of Present Illness: Patient is an 80-year-old gentleman came to hospital lightheadedness. Patient has history of orthostasis. Patient is also has significant Parkinson's disease. He he has had similar issues in the past. He was brought in for further evaluation. In the ER he had no arrhythmias. He was feeling like he was back to his baseline. Patient takes his Parkinson's medicines add 8-12-4-8. Will need to keep him on the schedule. He follows up with Neurology and will recommend this once his workup is completed. At this time will get syncope workup with carotid Doppler and echocardiogram. Hospital Course: Patient is clinically doing better. Patient's strength is improved. At this time, patient is stable for discharge with outpatient followup with neurology. Return to the Emergency room if symptoms worsen. Vital Signs/Physical Exam: Temp Pulse Resp BP Pulse Ox 98.1 F 62 16 114/46 L 96 05/12/20 09:44 05/12/20 09:44 05/12/20 09:44 05/12/20 09:44 05/12/20 09:44 General: Alert, In no apparent distress, Oriented x3 Laboratory Data at Discharge: WBC 3.8 K/uL (4.3-10.9) L 05/12/20 03:55 Hgb 9.4 g/dL (13.6-17.9) L 05/12/20 03:55 Hct 27.6 % (39.6-49.0) L 05/12/20 03:55 Plt Count 131 K/uL (152-406) L 05/12/20 03:55 PT 11.2 SECONDS (9.5-12.5) 05/11/20 11:50 INR 0.95 05/11/20 11:50 APTT 26.0 SECONDS (24.3-36.9) 05/11/20 11:50 Sodium 143 mmol/L (136-145) 05/12/20 03:55 Potassium 4.3 mmol/L (3.5-5.1) 05/12/20 03:55 BUN 23 mg/dL (7-18) H 05/12/20 03:55 Creatinine 1.10 mg/dL (0.55-1.3) 05/12/20 03:55 Glucose 82 mg/dL (74-106) 05/12/20 03:55 Magnesium 2.6 mg/dL (1.8-2.4) H 05/11/20 11:50 Troponin I 0.04 ng/mL (0.0-0.045) 05/12/20 03:55 Home Medications: Aspirin [Aspir-Low] 1 tab PO DAILY 06/08/19 Atorvastatin Calcium [Lipitor*] 0.5 tab PO BEDTIME 06/08/19 Carbidopa/Levodopa [Carbidopa-Levo 25-250 mg Odt] 1 tab PO QID 06/08/19 Midodrine HCl 2.5 mg PO TID 06/08/19 Mirtazapine [Remeron*] 15 mg PO BEDTIME 06/08/19 Mv-Mins/Folic/Lycopene/Ginkgo [One Daily Men's 50+ Tablet] 1 tab PO DAILY 06/08/19 Cholecalciferol (Vitamin D3) [Vitamin D 1000 Iu Tab*] 2,000 unit PO DAILY #30 tab 06/16/19 Memantine HCl [Namenda] 1 tab PO BREAKFAST 09/05/19 Memantine HCl [Namenda] 1 tab PO LUNCH 09/05/19 Ensure Enlive 237 ml PO BID PRN #60 can 02/11/20 Thiamine HCl [Vitamin B-1*] 100 mg PO DAILY #90 tablet 02/11/20 Patient Discharge Instructions: OK TO DC IV AND DC HOME. FOLLOW-UP WITH PRIMARY CARE PROVIDER IN 1-2 WEEKS. FOLLOW-UP WITH NEUROLOGY IN 1-2 WEEKS. RETURN TO THE ER IF symptoms worsen. CALL or TEXT DR. VALLE AT [phone] IF ANY QUESTIONS REGARDING HOSPITAL STAY. PLEASE CALL THE FLOOR AT [phone] IF ANY MEDICATION OR NURSING QUESTIONS. Diet: AHA Activity: Fall precautions Followup: Juan Daugherty MD [ASSOCIATE-ACTIVE - CAN ADMIT] - Time spent managing pt's care (in minutes): 35
[2020-05-12] MEDS: CARBIDOPA/LEVODOPA 25/250 TAB PO SCH ×2 (10:07→13:05)
[2020-05-12] MEDS ORDERED: MEMANTINE HCL 10 MG TABLET PO SCH (12:00)
[2020-05-12 12:41] VITALS: O2SAT 95
[2020-05-12] MEDS ORDERED: MIDODRINE HCL 5 MG TABLET PO SCH (14:00)
[2020-05-12 14:55] VITALS: BP 117/56; TEMP 98.3
[2020-05-12] MEDS ORDERED: ATORVASTATIN 20 MG TAB PO SCH (21:00)
[2020-05-13] MEDS ORDERED: MEMANTINE HCL 10 MG TABLET PO SCH (08:00)
--- NOTE | 2020-05-13 08:36 | ECHO ---
HEIGHT: 5 ft 7 in WEIGHT: 130 lb 0 oz DATE OF STUDY: 05/12/[address]: Juan Diego Mccormick MD 2-DIMENSIONAL: YES M.MODE: YES DOPPLER: YES COLOR FLOW: YES TDS: PORTABLE: DEFINITY: BUBBLE STUDY: DIAGNOSIS: SYNCOPE CARDIAC HISTORY: CATHERIZATION: SURGERY: PROSTHETIC VALVE: PACEMAKER: MEASUREMENTS (cm) DIASTOLIC (NORMALS) SYSTOLIC (NORMALS) IVSd 0.9 (0.6-1.2) LA Diam 2.0 (1.9-4.0) LVEF 52% LVIDd 2.9 (3.5-5.7) LVIDs 2.1 (2.0-3.5) %FS 25% LVPWd 1.0 (0.6-1.2) Ao Diam 3.3 (2.0-3.7) 2 DIMENSIONAL ASSESSMENT: RIGHT ATRIUM: NORMAL LEFT ATRIUM: NORMAL RIGHT VENTRICLE: NORMAL LEFT VENTRICLE: NORMAL TRICUSPID VALVE: NORMAL MITRAL VALVE: MITRAL ANNULAR CALCIFICATION PULMONIC VALVE: NORMAL AORTIC VALVE: STENOTIC PERICARDIAL EFFUSION: NONE AORTIC ROOT: NORMAL LEFT VENTRICULAR WALL MOTION: NORMAL DOPPLER/COLOR FLOW: MILD AORTIC STENOSIS - 1.7 CENTIMETERS SQUARED COMMENTS: MILD AORTIC STENOSIS - 1.7 CENTIMETERS SQUARED. NORMAL LEFT VENTRICULAR SIZE AND FUNCTION. NO EFFUSION. NO MITRAL VALVE PROLAPSE. TECHNOLOGIST: BEA ARROYO
== END 2020-05-12 16:07 | disposition home or self-care (01) ==
LOC: ER 11:33 → ERHOLD 16:00 → 2ND 22:40
PROVIDERS: ADMIT Hospitalist; ATTEND Hospitalist
DX: R55 Syncope and collapse (principal); G20 Parkinson's disease; Z20.822 Contact with and (suspected) exposure to COVID-19; F02.80 Dementia in other diseases classified elsewhere, unspecified severity, without behavioral disturbance, psychotic disturbance, mood disturbance, and anxiety; Z85.828 Personal history of other malignant neoplasm of skin; K21.9 Gastro-esophageal reflux disease without esophagitis; E78.5 Hyperlipidemia, unspecified; H35.30 Unspecified macular degeneration; I50.9 Heart failure, unspecified; I73.9 Peripheral vascular disease, unspecified; E55.9 Vitamin D deficiency, unspecified
CPT/HCPCS: 96361; 93005; 93306; 85025 ×2; 80048 ×2; 36415; 83735; 82550; 85610; 82947; 83605 ×2; 85730; 81003; 84484 ×3; 84145; 83880; 0240U; 70450; 96360; 99285; J1650; G0378 ×3

== ENCOUNTER 2020-10-14 10:15 | Observation (INO) | payer MEDICARE ==
--- OUTSIDE RECORDS SUMMARY | 2020-10-14 10:20 | XMS REPORT | Continuity of Care Document ---
:1940 Author Organization [facility] t Address [address] [place] [address] Care Team Providers Name Role Phone Corin [...] syncope 00:00: [facility] libby type type 00 Center Allergies, Adverse Reactions, Alerts Allergy Allergy Status Severity Reaction(s) Onset Inactive Treating Comm ents Source Name Type Date Date Clinician No Known DA Active U [facility] 07-28 [facility] 00:00: [address] Social History Social Habit Start Date Stop Date Quantity Comments Source Sex Assigned At [facility] History SDOH [facility] - Alcohol Std Dr[facility] History SDOH [facility] - Alcohol Binge [facility] [address] [facility] Tobacco use and 2018-06-27 2018-06-27 Never used [facility] - exposure 00:00:00 00:00:00 [facility] Alcohol intake 2018-06-27 2018-06-27 Current [facility] Nam es - 00:00:00 00:00:00 non-drinker of Medical [...] Medication? Clinician (SIG) Name Name aspirin 81 Yes 81mg QD Take [address] [facility] 3-05 by [facility] - tablet 16:29: daily. [facility] atorvastati Yes 20mg QD Take [address] [facility] (LIPITOR) 3-05 by mouth Luke s - 20 MG 16:29: daily. Medical tablet 26 Center carbidopa-l Yes 1{tbl} [id number] Take [address] evodopa 3-05 [id number] tablet by L ukes - (SINEMET) 16:29: [...] s - 16:29: mouth Medical 26 daily. Center Procedures This patient has no known procedures. [...] 00:00:00 (1 of 1 - Medical Center [id number] PCV13) [code = PNEUMOCOCCAL 65+ YRS (1 of 1 - [id number] PCV13)] Results Test Description Test Time Test Comments Results Result Comments Source TROPONIN-I 2018-07-29 09:26:00 Test Item Value Reference Range Interpretation Comme nts TROPONIN-I (test code = TROPI) < 0.012 NG/ML 0.012-0.033 L Q 6HRS. [id number] 03:54:00 Test Item Value Reference Range Interpretation Comments TROPONIN-I (test code = TROPI) < 0.012 NG/ML 0.012-0.033 L [id number] 21:09:00 Test Item Value Reference Range Interpretation Comments TROPONIN-I (test code = TROPI) < 0.012 NG/ML 0.012-0.033 L COMPREHENSIVE METABOLIC [id number] 17:26:00 Test Item Value Reference Range Interpretation [...] UNITS/L 38-126 N (test code = ALKP) [id number] 17:26:00 Test Item Value Reference Range Interpretation Comments PHOSPHOROUS (test code = PHOS) 3.4 MG/DL 2.5-4.5 N [id number] 17:26:00 Test Item Value Reference Range Interpretation Comments MAGNESIUM (test code = MAG) 2.3 MG/DL 1.6-2.3 N TROPONIN I [id number] 17:09:00 Test Item Value Reference Range Interpretation Comments TROPONIN I RAPID (test code = 0.01 NG/ML 0.00-0.05 N TROPIRAP) CBC W/AUTO [id number] 17:09:00 Test Item Value Reference Range Interpretation [...] K/mm3 0.0-0.1 N NRBC#) - XR CHEST [id number] 16:56:00 Patient Name: CARINA SAMANIEGO Unit No: [id number] EXAMS: CPT CODE: [id number] XR CHEST 1V 35005 EXAMINATION: - XR CHEST 1V. LOCATION: B2. [...] Technologist: Carolina Sherman, RT(R) Transcrpt Date/Tm/Trnsp: 07/28/2018 (165) [id number] Orig Print D/T: S: 07/28/2018 (3720) [facility] NAME: CARINA SAMANIEGO [id number] [address] PHYS: [place] [address] : 1940 AGE: 78 SEX: M LOC: [facility] PHONE #: [phone] EXAM DATE: 07/28/2018 STATUS: PRE ER FAX #: [phone] RADIOLOGY NO: PAGE 1 Signed ReportBLOOD [id number] 11:02:00 Test Item Value Reference Range Interpretation Comments CULTURE (BEAKER) (test No growth in 5 days code = 1095) BLOOD [id number] 11:02:00 Test Item Value Reference Range Interpretation Comments CULTURE (BEAKER) (test No growth in 5 days code = 1095) COMPREHENSIVE METABOLIC [id number] 13:41:00 Test Item Value Reference Range Interpretation [...] S NOT APPLICABLE FOR DIALYSIS PATIEN TS. [id number] 13:24:00 Test Item Value Reference Range Interpretation Comments MAGNESIUM (BEAKER) (test code = 1.9 mg/dL 1.6-2.6 627) [id number] 13:24:00 Test Item Value Reference Range Interpretation Comments LIPASE (BEAKER) (test code = 749) 521 U/L 8-78 H U/S, ABDOMINAL, [id number] 11:30:00Abdomen limited area? Add comment if clarification [...] months to document stability. Signed: Shaheed Benjamin MDRdelvin Verified Date/Time: 07/01/2018 11:30:04 Reading Location: [address] Ultrasound Reading Room [id number] 06:07:00 Test Item Value Reference Range Interpretation Comments MAGNESIUM (BEAKER) (test code = 2.1 mg/dL 1.6-2.6 627) BASIC METABOLIC [id number] 06:07:00 Test Item Value Reference Range Interpretation [...] PATIEN TS. CBC W/PLT COUNT & AUTO [id number] 06:04:00 Test Item Value Reference Range Interpretation [...] 0-1 PERCENT (BEAKER) (test code = 2801) [id number] 10:30:00 Test Item Value Reference Range Interpretation Comments MAGNESIUM (BEAKER) (test code = 1.9 mg/dL 1.6-2.6 627) CBC W/PLT COUNT & AUTO [id number] 07:07:00 Test Item Value Reference Range Interpretation [...] (BEAKER) (test code = 2801) BASIC METABOLIC [id number] 06:31:00 Test Item Value Reference Range Interpretation [...] APPLICABLE FOR DIALYSIS PATIEN TS. BASIC METABOLIC [id number] 06:27:00 Test Item Value Reference Range Interpretation [...] ESTIMATED GFR. CBC W/PLT COUNT & AUTO [id number] 05:45:00 Test Item Value Reference Range Interpretation [...] (test code = 2801) CT, BRAIN, WITHOUT [id number] 23:42:00FINAL REPORT CT, BRAIN, WITHOUT CONTRAST CLINICAL [...] MDReport Verified Date/Time: 06/27/2018 23:42:40 Reading Location: [facility] C013V Neuro Reading Room URINALYSIS W/ REFLEX URINE [id number] 21:57:00 Test Item Value Reference Range Interpretation [...] = 2795) RAD, CHEST, 1 VIEW, NON [id number] 21:14:00Reason for exam:->LOSS OF CONSCIOUSNESSShould this be performed at the bedside?->YesFINAL REPORT INDICATION: LOSS OF CONSCIOUSNESS COMPARISON: None TECHNIQUE: Single frontal view of the chest. FINDINGS: Lungs and pleura: Clear lungs. No effusion.Heart and mediastinum: Normal heart size. Unremarkable mediastinal contours.Osseous structures: No acute abnormality.Other: None. IMPRESSION: No acute intrathoracic abnormality. Signed: Nick Gutierrez MDReport Verified Date/Time: 06/27/2018 21:14:39 Reading Location: [facility] C013V Neuro Reading Room [id number] 20:36:00 Test Item Value Reference Range Interpretation Comments MAGNESIUM (BEAKER) (test code = 2.0 mg/dL 1.6-2.6 627) [id number] 20:36:00 Test Item Value Reference Range Interpretation Comments PHOSPHORUS (BEAKER) (test code = 2.9 mg/dL 2.3-4.7 604) TROPONIN [id number] 19:30:00 Test Item Value Reference Range Interpretation [...] 0-100 (test code = 700) BASIC METABOLIC [id number] 19:28:00 Test Item Value Reference Range Interpretation [...] m DATA TO CALCULA TE ESTIMATED GFR. [id number] 19:24:00 Test Item Value Reference Range Interpretation Comments LIPASE (BEAKER) (test code = 749) 229 U/L 8-78 H HEPATIC FUNCTION [id number] 19:24:00 Test Item Value Reference Range Interpretation [...] 6-55 347) CBC W/PLT COUNT & AUTO [id number] 19:05:00 Test Item Value Reference Range Interpretation [...] % 0-1 PERCENT (BEAKER) (test code = 4455)
--- NOTE | 2020-10-14 11:02 | RAD REPORT ---
EXAM DESCRIPTION: CT - Ct Stroke Brain Wo Cont - 10/14/2020 10:52 am CLINICAL HISTORY: APHASIA Headache, drowsiness, CVA symptomology COMPARISON: Head Brain Wo Cont dated 05/11/2020; Head Brain Wo Cont dated 02/09/2020 TECHNIQUE: All CT scans are performed using dose optimization technique as appropriate and may inclu de automated exposure control or mA/KV adjustment according to patient size. FINDINGS: No intracranial hemorrhage, hydrocephalus or extra-axial fluid collection.Mild generalized brain atrophy.No areas of brain edema or evidence of midline shift. Fluid is present in both mastoids. The calvarium is intact. IMPRESSION: No acute intracranial abnormality. The findings were discussed with Rolly Chowdary in the ER on 10/14/2020 at 10:57 a.m. by telephone.
--- NOTE | 2020-10-14 11:43 | RAD REPORT ---
EXAM DESCRIPTION: RAD - Chest Single View - 10/14/2020 11:35 am CLINICAL HISTORY: PAIN Chest pain. COMPARISON: Chest Single View dated 06/07/2019; Chest Single View dated 03/31/2019; Chest Single View d ated 09/24/2018; Chest Single View dated 07/14/2018 FINDINGS: Portable technique limits examination quality. The lungs are grossly clear. The heart is normal in size. No displaced fractures. IMPRESSION: No acute intrathoracic process suspected.
[2020-10-14 12:43] LABS: Barbiturates NEGATIVE (NEGATIVE); Benzodiazepines NEGATIVE (NEGATIVE); Cocaine NEGATIVE (NEGATIVE); METHAMPHETAM NEGATIVE (NEGATIVE); Methadone NEGATIVE (NEGATIVE); Opiates NEGATIVE (NEGATIVE); Phencyclidine NEGATIVE (NEGATIVE); THC Cannibis NEGATIVE (NEGATIVE)
[2020-10-14 12:53] LABS: Absolute Lymphocytes (CBC) 1.3 K/uL (0.7-4.9); Basophils % 1.5 % (0-1.3); Hematocrit 34.2 % (39.6-49.0); Lymphocytes % 34.5 % (15.3-44.8); MPV 7.9 fL (7.6-11.3)
[2020-10-14 13:00] LABS: Protime INR 0.91
[2020-10-14 13:15] LABS: BUN Blood Urea Nitrogen 23 mg/dL (7-18); Bicarbonate 30 mmol/L (21-32); Glucose Level 85 mg/dL (74-106); Potassium 4.5 mmol/L (3.5-5.1); Sodium Level 140 mmol/L (136-145); Troponin (Emerg Dept Use Only) < 0.02 ng/mL (0.0-0.045)
[2020-10-14] MEDS ORDERED: NA CHLORIDE 0.9% 1,000 ML ONE (13:25)
[2020-10-14 13:32] LABS: Urine Blood Negative (Negative); Urine Glucose Negative (Negative); Urine Protein Negative (Negative); Urine Specific Gravity 1.015 (1.005-1.030)
--- NOTE | 2020-10-14 13:41 | ER ---
Nurse's Notes [facility] Name: Sumanth Louis Age: 80 yrs Sex: Male : 1940 Arrival Date: 10/14/2020 Time: 10:16 Bed 3 Private MD: Diagnosis: Aphasia;Altered mental status, unspecified Presentation: 10/14 10:17 Chief complaint: EMS states: Home health nurse called EMS for hypertension and ph difficulty speaking, pt normally A\T\O x 1 but is able to speak and preform some ADLs. Last seen normal last night before bed, BGL 107, pt appears drowsy upon arrival to ED, follows commands, speech slurred, hx of Parkinson's and dementia. Coronavirus screen: Client denies travel out of the [place] in the last 14 days. At this time, the client does not indicate any symptoms associated with coronavirus-19. Ebola Screen: No symptoms or risks identified at this time. Initial Sepsis Screen: Does the patient meet any 2 criteria? Altered Mental Status. Does the patient have a suspected source of infection? No. Patient's initial sepsis screen is negative. Risk Assessment: Do you want to hurt yourself or someone else? Patient reports no desire to harm self or others. Onset of symptoms was October 14, 2020. 10:17 Method Of Arrival: EMS: [facility] 10:17 Acuity: IRINA 3 ph Historical: - Allergies: 10:25 No Known Allergies; ph - Home Meds: 10:25 aspirin 81 mg Oral TbEC 1 tab once daily [Active]; atorvastatin 20 mg Oral tab 1 tab ph once daily [Active]; carbidopa-levodopa 25-250 mg Oral tab 1 tab 4 times per day [Active]; donepezil 5 mg Oral tab 1 tab once daily [Active]; fludrocortisone 0.1 mg Oral tab 1 tab once daily [Active]; loratadine 10 mg Oral tab 1 tab once daily [Active]; metoprolol tartrate 25 mg Oral tab 0.5 tab 2 times per day [Active]; One-A-Day Men's Multivitamin 400-300 mcg Oral tab daily [Active]; pantoprazole 40 mg Oral TbEC 1 tab once daily [Active]; - PMHx: 10:25 Anemia; Anxiety; Dementia; Bilateral deafness; Bilateral degeneration of macula; BPH; ph CHF; CVA; chronic pain syndrome; Difficulty swallowing; Essential Hypertension; Hernia; Hypertension; Inguinal hernia R; LOCALIZED EDEMA; Orthostatic hypotension; osteoarthritis; PAD; Pancreatitis; Parkinsons; Peripheral arterial occlusive disease; Vitamin D3 deficiency; - PSHx: 10:25 Appendectomy; ph - Immunization history:: Adult Immunizations unknown. - Social history:: Smoking status: unknown. - Family history:: not pertinent. Screenin:21 Abuse screen: Denies threats or abuse. Denies injuries from another. Nutritional ph screening: No deficits noted. Tuberculosis screening: No symptoms or risk factors identified. Fall Risk None identified. Assessment: 10:30 General: Appears in no apparent distress. Behavior is cooperative, drowsy. Pain: Denies ph pain. Neuro: Level of Consciousness is awake, obeys commands, lethargic, Oriented to person, place, Speech is slurred, Facial symmetry appears normal, Pupils are PERRLA. Cardiovascular: Capillary refill < 3 seconds in bilateral fingers Patient's skin is warm and dry. Respiratory: Airway is patent Respiratory effort is even, unlabored, Respiratory pattern is regular, symmetrical. GI: No signs and/or symptoms were reported involving the gastrointestinal system. EENT: Oral mucosa is dry. Derm: Skin is fragile, is thin, Skin is pink, warm \T\ dry. Musculoskeletal: Circulation, motion, and sensation intact. Range of motion: intact in all extremities. 10:53 Reassessment: Pt taken to CT. ph 13:40 Reassessment: Patient appears in no apparent distress at this time. Patient and/or ph family updated on plan of care and expected duration. Pain level reassessed. Pt repositioned to R side for comfort, propped up w/ blankets, awaiting MRI. 15:17 Reassessment: pt returned to room from CT. tr6 16:30 Reassessment: Patient appears in no apparent distress at this time. Patient and/or ph family updated on plan of care and expected duration. Pain level reassessed. 17:42 Reassessment: Patient appears in no apparent distress at this time. Patient and/or ph family updated on plan of care and expected duration. Pain level reassessed. Pt awake and alert, oriented to person and place, daughter at bedside, awaiting room assignment. 19:40 General: report called to rn. ak2 Vital Signs: 10:17 BP 157 / 71; Pulse 64; Resp 16; Pulse Ox 100% on R/A; ph 12:30 BP 167 / 71; Pulse 56; Resp 16; Pulse Ox 98% on R/A; ph 13:26 BP 190 / 89; Pulse 66; Resp 18; Pulse Ox 100% on R/A; ph 13:40 BP 176 / 81; Pulse 59; Resp 18; Pulse Ox 100% on R/A; ph 15:00 BP 180 / 71; Pulse 60; Resp 18; Pulse Ox 100% on R/A; ph 16:00 BP 185 / 86; Pulse 61; Resp 18; Pulse Ox 98% on R/A; ph 17:00 BP 171 / 84; Pulse 62; Resp 18; Pulse Ox 97% on R/A; ph 19:36 BP 122 / 67; Pulse 70; Resp 16; Pulse Ox 100% on R/A; ak2 ED Course: 10:16 Patient arrived in ED. ds1 10:17 Whitley Brock, RN is Primary Nurse. ph 10:21 Triage completed. ph 10:22 Arm band placed on Patient placed in an exam room, on a stretcher, on game engineer, ph on pulse oximetry. 10:22 Patient has correct armband on for positive identification. Placed in gown. Bed in low ph position. Call light in reach. Side rails up X2. marketing instructor on. Pulse ox on. NIBP on. 10:38 Jua nDiego Davies MD is Attending Physician. ma2 10:52 CT Stroke Brain w/o Contrast In Process Unspecified. EDMS 11:35 Stroke CXR 1 View In Process Unspecified. EDMS 12:10 Urine collected: from pt soiled diaper Legal drug screen obtained per protocol. jp3 12:26 Warm blanket given. Repositioned patient. Cleaned of incontinence. jp3 13:10 EKG done, by ED staff, reviewed by Juan Diego Davies MD. jp3 13:20 Urine collected: straight cath specimen, clear, kb colored, Amount Returned: 400mL. jp3 Straight cath inserted, using sterile technique, 16 Fr. Specimen obtained. Returned clear yellow urine. Patient tolerated well. 13:27 Straight cath inserted, using sterile technique, 16 Fr. Specimen obtained. Returned ph clear yellow urine. Patient tolerated well. 13:31 Cleaned of incontinence. jp3 13:40 Odilon Chong is Hospitalizing Provider. ma2 15:10 No provider procedures requiring assistance completed. Patient admitted, IV remains in ph place. 19:54 Primary Nurse role handed off by Whitley Brock RN eb Administered Medications: 13:00 Drug: NS 0.9% 1000 ml Route: IV; Rate: 1 bolus; Site: left antecubital; ph 17:42 Follow up: Response: No adverse reaction; IV Status: Completed infusion ph Output: 13:25 Urine: 400ml (Straight Cath); Total: 400ml. ph Outcome: 13:40 Decision to Hospitalize by Provider. ma2 20:06 Admitted to Tele ak2 20:06 Condition: good 20:07 Patient left the ED. ak2 Signatures: Dispatcher [employer] EDPA GilmoreShobha sandoval ds1 Whitley Brock, Juan Diego Chavez RN, ph, MD MD ma2 Gisele Childress Jacob jp3 Merced Szymanski RN RN 6 Lewis Shay ak2
--- NOTE | 2020-10-14 13:41 | EDPHYS ---
Physician Documentation [facility] Name: Sumanth Louis Age: 80 yrs Sex: Male : 1940 Arrival Date: 10/14/2020 Time: 10:16 Bed 3 Private MD: ED Physician Juan Diego Davies HPI: 10/14 13:32 This 80 yrs old Male presents to ER via EMS with complaints of S/S of ma2 Possible Stroke. 13:32 The patient's problem is reported as dysphasia, slow speech. ma2 13:33 Onset: The symptoms/episode began/occurred gradually, 1 day(s) ago. Associated signs ma2 and symptoms: Pertinent negatives: blurred vision, combativeness, confusion. Severity of symptoms: At their worst the symptoms were moderate in the emergency department the symptoms are unchanged. The patient has not experienced similar symptoms in the past. Historical: - Allergies: 10:25 No Known Allergies; ph - Home Meds: 10:25 aspirin 81 mg Oral TbEC 1 tab once daily [Active]; atorvastatin 20 mg Oral tab 1 tab ph once daily [Active]; carbidopa-levodopa 25-250 mg Oral tab 1 tab 4 times per day [Active]; donepezil 5 mg Oral tab 1 tab once daily [Active]; fludrocortisone 0.1 mg Oral tab 1 tab once daily [Active]; loratadine 10 mg Oral tab 1 tab once daily [Active]; metoprolol tartrate 25 mg Oral tab 0.5 tab 2 times per day [Active]; One-A-Day Men's Multivitamin 400-300 mcg Oral tab daily [Active]; pantoprazole 40 mg Oral TbEC 1 tab once daily [Active]; - PMHx: 10:25 Anemia; Anxiety; Dementia; Bilateral deafness; Bilateral degeneration of macula; BPH; ph CHF; CVA; chronic pain syndrome; Difficulty swallowing; Essential Hypertension; Hernia; Hypertension; Inguinal hernia R; LOCALIZED EDEMA; Orthostatic hypotension; osteoarthritis; PAD; Pancreatitis; Parkinsons; Peripheral arterial occlusive disease; Vitamin D3 deficiency; - PSHx: 10:25 Appendectomy; ph - Immunization history:: Adult Immunizations unknown. - Social history:: Smoking status: unknown. - Family history:: not pertinent. ROS: 13:33 Constitutional: Negative for fever, chills, and weight loss. ma2 13:33 All other systems are negative. 13:33 Unable to obtain ROS due to altered mental status. ma2 Exam: 13:33 Constitutional: This is a well developed, well nourished patient who is awake, alert, ma2 and in no acute distress. Head/Face: Normocephalic, atraumatic. 13:33 Radiologist reports: unremarkable ma2 13:33 Eyes: Pupils equal round and reactive to light, extra-ocular motions intact. Lids and lashes normal. Conjunctiva and sclera are non-icteric and not injected. Cornea within normal limits. Periorbital areas with no swelling, redness, or edema. ENT: Nares patent. No nasal discharge, no septal abnormalities noted. Tympanic membranes are normal and external auditory canals are clear. Oropharynx with no redness, swelling, or masses, exudates, or evidence of obstruction, uvula midline. Mucous membranes moist. Neck: Trachea midline, no thyromegaly or masses palpated, and no cervical lymphadenopathy. Supple, full range of motion without nuchal rigidity, or vertebral point tenderness. No Meningismus. Chest/axilla: Normal chest wall appearance and motion. Nontender with no deformity. No lesions are appreciated. Cardiovascular: Regular rate and rhythm with a normal S1 and S2. No gallops, murmurs, or rubs. Normal PMI, no JVD. No pulse deficits. Respiratory: Lungs have equal breath sounds bilaterally, clear to auscultation and percussion. No rales, rhonchi or wheezes noted. No increased work of breathing, no retractions or nasal flaring. Abdomen/GI: Soft, non-tender, with normal bowel sounds. No distension or tympany. No guarding or rebound. No evidence of tenderness throughout. Back: No spinal tenderness. No costovertebral tenderness. Full range of motion. Skin: Warm, dry with normal turgor. Normal color with no rashes, no lesions, and no evidence of cellulitis. MS/ Extremity: Pulses equal, no cyanosis. Neurovascular intact. Full, normal range of motion. Neuro: Awake and alert, GCS 15, oriented to person, place, time, and situation. Cranial nerves II-XII grossly intact. Motor strength 5/5 in all extremities. Sensory grossly intact. Cerebellar exam normal. Normal gait. 13:33 Constitutional: This is a well developed, well nourished patient who is altered and not verbal, eye is closed, however protecting airways Vital Signs: 10:17 BP 157 / 71; Pulse 64; Resp 16; Pulse Ox 100% on R/A; ph 12:30 BP 167 / 71; Pulse 56; Resp 16; Pulse Ox 98% on R/A; ph 13:26 BP 190 / 89; Pulse 66; Resp 18; Pulse Ox 100% on R/A; ph 13:40 BP 176 / 81; Pulse 59; Resp 18; Pulse Ox 100% on R/A; ph 15:00 BP 180 / 71; Pulse 60; Resp 18; Pulse Ox 100% on R/A; ph 16:00 BP 185 / 86; Pulse 61; Resp 18; Pulse Ox 98% on R/A; ph 17:00 BP 171 / 84; Pulse 62; Resp 18; Pulse Ox 97% on R/A; ph 19:36 BP 122 / 67; Pulse 70; Resp 16; Pulse Ox 100% on R/A; ak2 MDM: 10:38 Patient medically screened. ma2 13:33 Differential diagnosis: CVA, TIA, Dementia, metabolic disorder, drug effects. Data ma2 reviewed: vital signs, nurses notes. Counseling: I had a detailed discussion with the patient and/or guardian regarding: the historical points, exam findings, and any diagnostic results supporting the discharge/admit diagnosis, the presence of at least one elevated blood pressure reading (>120/80) during this emergency department visit, the need for further work-up and treatment in the hospital. Response to treatment: the patient's symptoms have markedly improved after treatment. ED course: patient is not a tpa candidate, last seen normal 24 hrs ago.. discussed with dr. Arellano . 10/14 10:39 Order name: UDS [facility] 10/14 10:39 Order name: Troponin (emerg Dept Use Only); Complete Time: 13:32 [facility] 10/14 10:39 Order name: Basic Metabolic Panel; Complete Time: 13:32 [facility] 10/14 10:39 Order name: CBC with Diff; Complete Time: 13:32 [facility] 10/14 10:39 Order name: Protime (+inr); Complete Time: 13:32 [facility] 10/14 10:39 Order name: Ptt, Activated; Complete Time: 13:32 [facility] 10/14 10:39 Order name: CT Stroke Brain w/o Contrast; Complete Time: 11:26 id2 10/14 10:39 Order name: Stroke CXR 1 View; Complete Time: 11:52 id2 10/14 10:39 Order name: Urine Drug Screen; Complete Time: 13:32 EDMS 18 12:12 Order name: MRI - Brain W/Wo Cont id2 10/14 13:31 Order name: Urine Dipstick-Ancillary; Complete Time: 13:33 EDMS 10/14 15:28 Order name: COVID-19 : Document "Date of Symptom Onset" if Symptomatic. tr6 10/14 16:12 Order name: CORONAVIRUS EDMI 10/14 17:06 Order name: SARS-COV-2 RT PCR; Complete Time: 17:48 EDMS 10/14 10:39 Order name: EKG; Complete Time: 10:40 id2 10/14 10:39 Order name: Accucheck; Complete Time: 11:30 [facility] 10/14 10:39 Order name: Cardiac monitoring; Complete Time: 11:30 [facility] 10/14 10:39 Order name: EKG - Nurse/Tech; Complete Time: 13:32 [facility] 10/14 10:39 Order name: IV Saline Lock; Complete Time: 11:29 id2 10/14 10:39 Order name: Labs collected and sent; Complete Time: 11:29 id2 10/14 10:39 Order name: NPO; Complete Time: 11:29 id2 10/14 10:39 Order name: O2 Per Protocol; Complete Time: 11:30 [facility] 10/14 10:39 Order name: O2 Sat Monitoring; Complete Time: 11:30 [facility] 10/14 10:42 Order name: Urine Dipstick-Ancillary (obtain specimen); Complete Time: 13:32 id2 10/14 11:39 Order name: Labs - recollect needed: all specimens hemolyzed; Complete Time: 13:25 3 10/14 15:36 Order name: MRI; Complete Time: 17:48 EDMS Administered Medications: 13:00 Drug: NS 0.9% 1000 ml Route: IV; Rate: 1 bolus; Site: left antecubital; ph 17:42 Follow up: Response: No adverse reaction; IV Status: Completed infusion ph Disposition: 10/14/20 13:40 Hospitalization ordered by Odilon Chong for Inpatient Admission. Preliminary diagnosis are Aphasia, Altered mental status, unspecified. - Bed requested for Telemetry/MedSurg (Inpatient). - Status is Inpatient Admission. ak2 - Condition is Stable. - Problem is new. - Symptoms are unchanged. Signatures: Dispatcher [employer] EDMS Elyse Hernandez RN RN Whitley Brock RN RN ph Herrera, Deanna [facility] Juan Diego Davies MD MD [facility] Lewis Shay [facility] Corrections: (The following items were deleted from the chart) 19:19 13:40 Hospitalization Ordered by Odilon Chong for Inpatient Admission. Preliminary [facility] diagnosis is Aphasia; Altered mental status, unspecified. Bed requested for Telemetry/MedSurg (Inpatient). Status is Inpatient Admission. Condition is Stable. Problem is new. Symptoms are unchanged. [facility] 19:19 19:19 10/14/2020 13:40 Hospitalization Ordered by Odilon Chong for Inpatient dw Admission. Preliminary diagnosis is Aphasia; Altered mental status, unspecified. Bed requested for Telemetry/MedSurg (Inpatient). Status is Inpatient Admission. Condition is Stable. Problem is new. Symptoms are unchanged. [facility] 20:07 19:19 10/14/2020 13:40 Hospitalization Ordered by Odilon Chong for Inpatient ak2 Admission. Preliminary diagnosis is Aphasia; Altered mental status, unspecified. Bed requested for Telemetry/MedSurg (Inpatient). Status is Inpatient Admission. Condition is Stable. Problem is new. Symptoms are unchanged.
--- NOTE | 2020-10-14 13:52 | P.HP ---
Certification for Inpatient Patient admitted to: Observation With expected LOS: <2 Midnights Practitioner: I am a practitioner with admitting privileges, knowledge of patient current condition, hospital course, and medical plan of care. Services: Services provided to patient in accordance with Admission requirements found in Title 42 Section 412.3 of the Code of Federal Regulations Patient History Date of Service: 10/14/20 Reason for admission: Patient is mute. History of Present Illness: 80-year-old gentleman with a history of advanced dementia, Parkinson's disease was brought to the emergency department because patient was mute. There was a concern for acute CVA. CT head done in the ED due did not show any acute changes. Blood work unremarkable except anemia. UA no evidence of UTI. Patient has advanced dementia, he was obeying commands but would not talk during my assessment in the ED. No reported lateralizing weakness. Patient placed under observation for further evaluation for stroke Allergies No Known Allergies Allergy (Verified 06/07/19 21:10) Home Medications: Aspirin [Aspir-Low] 1 tab PO DAILY 06/08/19 Atorvastatin Calcium [Lipitor*] 0.5 tab PO BEDTIME 06/08/19 Carbidopa/Levodopa [Carbidopa-Levo 25-250 mg Odt] 1 tab PO QID 06/08/19 Midodrine HCl 2.5 mg PO TID 06/08/19 Mirtazapine [Remeron*] 15 mg PO BEDTIME 06/08/19 Mv-Mins/Folic/Lycopene/Ginkgo [One Daily Men's 50+ Tablet] 1 tab PO DAILY 06/08/19 Cholecalciferol (Vitamin D3) [Vitamin D 1000 Iu Tab*] 2,000 unit PO DAILY #30 tab 06/16/19 Memantine HCl [Namenda] 1 tab PO BREAKFAST 09/05/19 Memantine HCl [Namenda] 1 tab PO LUNCH 09/05/19 Ensure Enlive 237 ml PO BID PRN #60 can 02/11/20 Thiamine HCl [Vitamin B-1*] 100 mg PO DAILY #90 tablet 02/11/20 - Past Medical/Surgical History Diabetic: No -: Parkinson's -: 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 He is . Daughter has medical power of banker mason. - Family History Mother -: Lung disease, GI disease Notes: pancreatitis. diverticulitis Father -: Diabetes - Social History Alcohol use: No CD- Drugs: No Caffeine use: No Review of Systems is unable to be obtained (Due to advanced dementia.) Physical Examination - Physical Exam General: In no apparent distress, Other (Awake, mute.) HEENT: PERRLA, Other (Dry tongue.), EOMI, Sclerae nonicteric Neck: Supple, JVD not distended Respiratory: Clear to auscultation bilaterally, Normal air movement, Diminished Cardiovascular: No edema, Regular rate/rhythm, Normal S1 S2, Systolic murmur Gastrointestinal: Normal bowel sounds, Soft and benign, Non-distended, No tenderness Musculoskeletal: No swelling, No tenderness Integumentary: No rashes Neurological: Other (Patient moves all extremities spontaneous. plantar response-flexor bilaterally), Dementia (Mute. He obeys commands.) Lymphatics: No axilla or inguinal lymphadenopathy - Studies Laboratory Data (last 24 hrs) 10/14/20 12:42: PT 10.4, INR 0.91, APTT 27.3 10/14/20 12:42: WBC 3.70 L, Hgb 11.3 L, Hct 34.2 L, Plt Count 179 10/14/20 12:42: Sodium 140, Potassium 4.5, BUN 23 H, Creatinine 1.16, Glucose 85 Assessment and Plan - Problems (Diagnosis) (1) Stroke-like symptoms Current Visit: Yes Status: Acute (2) Advanced dementia Current Visit: Yes Status: Chronic (3) Parkinsons disease Onset Date: 02/05/18 Current Visit: No Status: Chronic (4) Anemia Current Visit: Yes Status: Chronic (5) Uncontrolled hypertension Current Visit: Yes Status: Acute - Plan Place under observation. MRI of the brain: No acute infarct or hemorrhage. Keep NPO onto patient pass bedside swallow evaluation. Consult to speech therapy. Aspirin. Statin Aggressive blood pressure control. Hydralazine p.r.n. for severe blood pressure. Continue Parkinson medications. - Advance Directives Does patient have a Living Will: No Does patient have a Durable POA for Healthcare: No
--- NOTE | 2020-10-14 15:35 | RAD REPORT ---
EXAM DESCRIPTION: MRI - Brain W/Wo Cont - 10/14/2020 3:10 pm CLINICAL HISTORY: CONFUSED COMPARISON: Brain Wo Cont dated 09/24/2018; Ct Stroke Brain Wo Cont dated 10/14/2020 TECHNIQUE: Sagittal and axial T1-weighted images were obtained. Axial PD/heavily T2-weighted and T2- FLAIR images were obtained along with axial DWI/ADC mapping sequences. Coronal heavily T2 weighted s equence obtained. Axial and coronal post-contrast T1-weighted images were also obtained. A 12 ml Mul tihance contrast following utilized. FINDINGS: No intracranial hemorrhage, mass or acute infarction. There is no edema or shift of midli ne structures. No extra-axial fluid collections. Love-matter/white matter junction is preserved. Sig nal voids are seen as a normal finding in the major intracranial vessels. Mild to moderate atrophy c hanges are present. Ventricles are in proportion to the volume loss. Patient has minimal chronic isch emic change scattered in the cerebral white matter. Thalamus, brainstem and basal ganglia tissues are spared any measurable disease. Post-contrast images show normal enhancement. No dural thickening. Fluid signal is present throughout the bilateral mastoid air cells. No acute paranasal sinus finding. No globe or orbital content abnormality. No sella or supra sella abnormality. IMPRESSION: Mild to moderate atrophy and very minimal chronic ischemic changes are present. No acute intracranial finding identified. Bilateral mastoiditis pattern.
[2020-10-14] MEDS ORDERED: ACETAMINOPHEN 500 MG TAB PO PRN (20:19)
[2020-10-14] MEDS: NA CHLORIDE 0.9% 1,000 ML IV SCH (20:19)
[2020-10-14 20:25] VITALS: O2SAT 100
[2020-10-14] MEDS ORDERED: ATORVASTATIN 20 MG TAB PO SCH (21:00)
[2020-10-14 21:04] VITALS: BMI 18.8
[2020-10-15 04:42] LABS: Absolute Lymphocytes (CBC) 1.5 K/uL (0.7-4.9); Basophils % 0.9 % (0-1.3); Hematocrit 30.7 % (39.6-49.0); Lymphocytes % 35.5 % (15.3-44.8); MPV 7.8 fL (7.6-11.3); RBC Red Blood Cell Count 3.23 M/uL (4.33-5.43)
[2020-10-15 05:12] LABS: Potassium 4.2 mmol/L (3.5-5.1)
[2020-10-15] MEDS: NA CHLORIDE 0.9% 1,000 ML IV SCH (08:44)
[2020-10-15] MEDS ORDERED: CLOPIDOGREL 75 MG TABLET PO SCH (09:00)
[2020-10-15] MEDS ORDERED: ASPIRIN EC 81 MG TAB PO SCH (09:00)
[2020-10-15] MEDS ORDERED: ENOXAPARIN 40 MG/0.4 ML SQ SCH (09:00)
[2020-10-15] MEDS ORDERED: HYDRALAZINE HCL 20 MG/ML VIAL IV PRN (09:07)
--- NOTE | 2020-10-15 09:45 | EKG ---
Test Date: 2020-10-14 Test Time: 12:55:53 Quantitative Consultant: LUDY MEASUREMENT RESULTS: Intervals: Rate: 58 CA: 130 QRSD: 86 QT: 444 QTc: 435 [place]: P: 0 CA: 130 QRS: -33 T: 23 INTERPRETIVE STATEMENTS: Sinus bradycardia Left axis deviation Abnormal ECG Compared to ECG 05/11/2020 11:41:47 Left-axis deviation now present Short CA interval no longer present Electronically Signed On 10-15-20 09:43:44 CDT by Franco Preciado
[2020-10-15] MEDS ORDERED: MEMANTINE HCL 10 MG TABLET PO SCH (10:00)
[2020-10-15] MEDS: PRAMIPEXOLE 0.25 MG TAB PO SCH ×2 (10:11→17:26)
[2020-10-15] MEDS: CARBIDOPA/LEVODOPA 25/250 TAB PO SCH ×2 (10:54→17:26)
--- NOTE | 2020-10-15 13:24 | P.DS ---
Admission Date: 10/14/20 Discharge Date: 10/15/20 Disposition: DC HOME/HOME HEALTH CARE Discharge Condition: FAIR Reason for Admission: Patient is mute. - Problems (1) Stroke-like symptoms Current Visit: Yes Status: Acute (2) Advanced dementia Current Visit: Yes Status: Chronic (3) Parkinsons disease Onset Date: 02/05/18 Current Visit: No Status: Chronic (4) Anemia Current Visit: Yes Status: Chronic (5) Uncontrolled hypertension Current Visit: Yes Status: Acute Brief History of Present Illness: 80-year-old gentleman with a history of advanced dementia, Parkinson's disease was brought to the emergency department because patient was mute. There was a concern for acute CVA. CT head done in the ED due did not show any acute changes. Blood work unremarkable except anemia. UA no evidence of UTI. Patient has advanced dementia, he was obeying commands but would not talk during my assessment in the ED. No reported lateralizing weakness. Patient placed under observation for further evaluation for stroke Hospital Course: Patient placed under observation. MRI of the brain done did not show any acute infarct or hemorrhage. Patient past bedside swallow test and was able to tolerate mechanical soft diet and thin liquids. Acute CVA ruled out. Case discussed with neurology Dr. Daugherty, who suggested patient's symptoms may be related to his Parkinson's disease. Patient is already on a high dose Sinemet and dose adjustment not likely to be beneficial per neurology. He recommended a trial of Apomorphine. Acute CVA ruled out. Patient was able to mumble some words to me this morning. Patient blood pressure was elevated. Noted patient is on midodrine likely for hypotention. Midodrine dose changed to p.r.n. for systolic blood pressure less than 90. Patient is discharged to follow Dr. Daugherty as an outpatient. Vital Signs/Physical Exam: Temp Pulse Resp BP Pulse Ox 97.8 F 87 16 163/87 H 100 10/15/20 12:00 10/15/20 12:00 10/15/20 12:00 10/15/20 12:00 10/15/20 12:00 General: In no apparent distress, Other (Awake) HEENT: Mucous membr. moist/pink Neck: JVD not distended Respiratory: Clear to auscultation bilaterally, Normal air movement Cardiovascular: No edema, Regular rate/rhythm, Normal S1 S2 Gastrointestinal: Normal bowel sounds, Soft and benign, No tenderness Musculoskeletal: No swelling Neurological: Other (Moves all extremities. He obey commands.) Laboratory Data at Discharge: WBC 4.10 K/uL (4.3-10.9) L 10/15/20 04:23 Hgb 10.3 g/dL (13.6-17.9) L 10/15/20 04:23 Hct 30.7 % (39.6-49.0) L 10/15/20 04:23 Plt Count 167 K/uL (152-406) 10/15/20 04:23 PT 10.4 SECONDS (9.5-12.5) 10/14/20 12:42 INR 0.91 10/14/20 12:42 APTT 27.3 SECONDS (24.3-36.9) 10/14/20 12:42 Sodium 140 mmol/L (136-145) 10/15/20 04:23 Potassium 4.2 mmol/L (3.5-5.1) 10/15/20 04:23 BUN 20 mg/dL (7-18) H 10/15/20 04:23 Creatinine 0.98 mg/dL (0.55-1.3) 10/15/20 04:23 Glucose 81 mg/dL (74-106) 10/15/20 04:23 Troponin I 0.02 ng/mL (0.0-0.045) 10/15/20 00:34 Triglycerides 68 mg/dL (<150) 10/15/20 04:23 Cholesterol 169 mg/dL (<200) 10/15/20 04:23 HDL Cholesterol 67 mg/dL (40-60) H 10/15/20 04:23 Cholesterol/HDL Ratio 2.52 10/15/20 04:23 Home Medications: Aspirin [Aspir-Low] 1 tab PO DAILY 06/08/19 Atorvastatin Calcium [Lipitor*] 1 tab PO BEDTIME 06/08/19 Carbidopa/Levodopa [Carbidopa-Levo 25-250 mg Odt] 1 tab PO QID 06/08/19 Mirtazapine [Remeron*] 15 mg PO BEDTIME 06/08/19 Mv-Mins/Folic/Lycopene/Ginkgo [One Daily Men's 50+ Tablet] 1 tab PO DAILY 06/08/19 Memantine HCl [Namenda] 1 tab PO BID 09/05/19 Pramipexole Di-HCl [Pramipexole Dihydrochloride] 0.125 mg PO TID 10/14/20 Clopidogrel Bisulfate [Plavix*] 75 mg PO DAILY #0 tablet 10/15/20 Hydralazine [Apresoline*] 10 mg PO BID PRN #30 tab 10/15/20 Midodrine HCl 2.5 mg PO TID PRN #30 10/15/20 New Medications: Hydralazine [Apresoline*] 10 mg PO BID PRN #30 tab PRN Reason: For systolic BP>160 Midodrine HCl 2.5 mg PO TID PRN #30 PRN Reason: For SBP<90. Physician Discharge Instructions: Check blood pressure twice a day. Give Midodrine as needed if systolic blood pressure is less than 90. Give hydralazine as needed if systolic blood pressure is greater than 160. Dr. Daugherty recommended a trial of Apomorphine for his Parkinson's disease. Diet: AHA Activity: Fall precautions Followup: Tan Grimes MD [ACTIVE - CAN ADMIT] - (neurologist- call to schedule an appointment ) Unknown,U [Primary Care Provider] -
[2020-10-15] MEDS ORDERED: PRAMIPEXOLE DI HCL 0.125 MG PO SCH (14:00)
[2020-10-15 16:39] VITALS: BP 153/72; TEMP 97.7
[2020-10-15] MEDS ORDERED: ATORVASTATIN 20 MG TAB PO SCH (21:00)
[2020-10-15] MEDS ORDERED: MIRTAZAPINE 15 MG TAB PO SCH (21:00)
[2020-10-16] MEDS ORDERED: ASPIRIN EC 81 MG TAB PO SCH (09:00)
[2020-10-16] MEDS ORDERED: MULTIVITAMIN TAB PO SCH (09:00)
== END 2020-10-15 18:09 | disposition home health service (06) ==
LOC: ER 10:15 → ERHOLD 14:23 → 4TH 19:32
PROVIDERS: ADMIT Internal Medicine; ATTEND Internal Medicine
DX: R47.01 Aphasia (principal); R41.82 Altered mental status, unspecified; G20 Parkinson's disease; F02.80 Dementia in other diseases classified elsewhere, unspecified severity, without behavioral disturbance, psychotic disturbance, mood disturbance, and anxiety; Z20.822 Contact with and (suspected) exposure to COVID-19; H35.30 Unspecified macular degeneration; Z85.828 Personal history of other malignant neoplasm of skin; K21.9 Gastro-esophageal reflux disease without esophagitis; E78.5 Hyperlipidemia, unspecified; I11.0 Hypertensive heart disease with heart failure; I50.9 Heart failure, unspecified; I73.9 Peripheral vascular disease, unspecified; E55.9 Vitamin D deficiency, unspecified; D64.9 Anemia, unspecified
CPT/HCPCS: 93005; 85025 ×2; 80048 ×2; 36415; 85610; 80061; 80307 ×8; 85730; 81003; 84484 ×3; 70450; 71045; 70553; 97116; 97162; U0003; A9577; J1650; J7030 ×2; G0378 ×3; 51702; 96360; 96361; 99285

== ENCOUNTER 2021-06-14 09:52 | Inpatient (IN) | payer MEDICARE ==
--- OUTSIDE RECORDS SUMMARY | 2021-06-14 09:55 | XMS REPORT | Continuity of Care Document ---
:[address] [facility] t Address [address] [place] [address] Care Team Providers Name Role Phone ZEKE Attending Clinician Unavailable KAITLIN HAYES Admitting Clinician Unavailable Payers Payer Name Policy Type Policy Number Effective Date Expiration Date S ource Problems This patient has no known problems. Allergies, Adverse Reactions, Alerts Allergy Allergy Status Severity Reaction(s) Onset Inactive Treating Comm ents Source Name Type Date Date Clinician No Known DA Active U [facility] Allerg 07-28 00:00: [address] NO KNOWN Allergy Active [facility] Medications This patient has no known medications. Procedures This patient has no known procedures. Results Test Description Test Time Test Comments Results Result Comments Source TROPONIN-I 2018-07-29 09:26:00 Test Item Value Reference Range Interpretation Comme nts TROPONIN-I (test code = TROPI) < 0.012 NG/ML 0.012-0.033 L Q 6HRS. [id number] 03:54:00 Test Item Value Reference Range Interpretation Comments TROPONIN-I (test code = TROPI) < 0.012 NG/ML 0.012-0.033 L [id number] 21:09:00 Test Item Value Reference Range Interpretation Comments TROPONIN-I (test code = TROPI) < 0.012 NG/ML 0.012-0.033 L COMPREHENSIVE METABOLIC [id number] 17:26:00 Test Item Value Reference Range Interpretation [...] UNITS/L 38-126 N (test code = ALKP) [id number] 17:26:00 Test Item Value Reference Range Interpretation Comments PHOSPHOROUS (test code = PHOS) 3.4 MG/DL 2.5-4.5 N [id number] 17:26:00 Test Item Value Reference Range Interpretation Comments MAGNESIUM (test code = MAG) 2.3 MG/DL 1.6-2.3 N TROPONIN I [id number] 17:09:00 Test Item Value Reference Range Interpretation Comments TROPONIN I RAPID (test code = 0.01 NG/ML 0.00-0.05 N TROPIRAP) CBC W/AUTO [id number] 17:09:00 Test Item Value Reference Range Interpretation [...] K/mm3 0.0-0.1 N NRBC#) - XR CHEST [id number] 16:56:00 Patient Name: CARINA SAMANIEGO Unit No: [id number] EXAMS: CPT CODE: [id number] XR CHEST 1V 27983 EXAMINATION: - XR CHEST 1V. LOCATION: B2. [...] Carolina Sherman, RT(R) Transcrpt Date/Tm/Trnsp: 07/28/2018 (1655) t.SDR.PR7 Orig Print D/T: S: 07/28/2018 (1658) [facility] NAME: CARINA SAMANIEGO [id number] PHYS: [place] [address] : 1940 AGE: 78 SEX: M LOC: Z.ERS PHONE #: [phone] EXAM DATE: 07/28/2018 STATUS: PRE ER FAX #: [phone] RADIOLOGY NO: PAGE 1 Signed ReportBLOOD [id number] 11:02:00 Test Item Value Reference Range Interpretation Comments CULTURE (BEAKER) (test No growth in 5 days code = 1095) BLOOD [id number] 11:02:00 Test Item Value Reference Range Interpretation Comments CULTURE (BEAKER) (test No growth in 5 days code = 1095) COMPREHENSIVE METABOLIC [id number] 13:41:00 Test Item Value Reference Range Interpretation [...] S NOT APPLICABLE FOR DIALYSIS PATIEN TS. [id number] 13:24:00 Test Item Value Reference Range Interpretation Comments MAGNESIUM (BEAKER) (test code = 1.9 mg/dL 1.6-2.6 627) [id number] 13:24:00 Test Item Value Reference Range Interpretation Comments LIPASE (BEAKER) (test code = 749) 521 U/L 8-78 H U/S, ABDOMINAL, [id number] 11:30:00Abdomen limited area? Add comment if clarification [...] Benjamin Verified Date/Time: 07/01/2018 11:30:04 Reading Location: [address] Ultrasound Reading Room [id number] 06:07:00 Test Item Value Reference Range Interpretation Comments MAGNESIUM (BEAKER) (test code = 2.1 mg/dL 1.6-2.6 627) BASIC METABOLIC [id number] 06:07:00 Test Item Value Reference Range Interpretation [...] PATIEN TS. CBC W/PLT COUNT & AUTO [id number] 06:04:00 Test Item Value Reference Range Interpretation [...] 0-1 PERCENT (BEAKER) (test code = 2801) [id number] 10:30:00 Test Item Value Reference Range Interpretation Comments MAGNESIUM (BEAKER) (test code = 1.9 mg/dL 1.6-2.6 627) CBC W/PLT COUNT & AUTO [id number] 07:07:00 Test Item Value Reference Range Interpretation [...] (BEAKER) (test code = 2801) BASIC METABOLIC [id number] 06:31:00 Test Item Value Reference Range Interpretation [...] APPLICABLE FOR DIALYSIS PATIEN TS. BASIC METABOLIC [id number] 06:27:00 Test Item Value Reference Range Interpretation [...] ESTIMATED GFR. CBC W/PLT COUNT & AUTO [id number] 05:45:00 Test Item Value Reference Range Interpretation [...] (test code = 2801) CT, BRAIN, WITHOUT [id number] 23:42:00FINAL REPORT CT, BRAIN, WITHOUT CONTRAST CLINICAL [...] MDReport Verified Date/Time: 06/27/2018 23:42:40 Reading Location: [address] Neuro Reading Room URINALYSIS W/ REFLEX URINE [id number] 21:57:00 Test Item Value Reference Range Interpretation [...] = 2795) RAD, CHEST, 1 VIEW, NON [id number] 21:14:00Reason for exam:->LOSS OF CONSCIOUSNESSShould this be performed at the bedside?->YesFINAL REPORT INDICATION: LOSS OF CONSCIOUSNESS COMPARISON: None TECHNIQUE: Single frontal view of the chest. FINDINGS: Lungs and pleura: Clear lungs. No effusion.Heart and mediastinum: Normal heart size. Unremarkable mediastinal contours.Osseous structures: No acute abnormality.Other: None. IMPRESSION: No acute intrathoracic abnormality. Signed: Christina Gutierrez Verified Date/Time: 06/27/2018 21:14:39 Reading Location: [address] Neuro Reading Room [id number] 20:36:00 Test Item Value Reference Range Interpretation Comments MAGNESIUM (BEAKER) (test code = 2.0 mg/dL 1.6-2.6 627) [id number] 20:36:00 Test Item Value Reference Range Interpretation Comments PHOSPHORUS (BEAKER) (test code = 2.9 mg/dL 2.3-4.7 604) TROPONIN [id number] 19:30:00 Test Item Value Reference Range Interpretation [...] 0-100 (test code = 700) BASIC METABOLIC [id number] 19:28:00 Test Item Value Reference Range Interpretation [...] m DATA TO CALCULA TE ESTIMATED GFR. [id number] 19:24:00 Test Item Value Reference Range Interpretation Comments LIPASE (BEAKER) (test code = 749) 229 U/L 8-78 H HEPATIC FUNCTION [id number] 19:24:00 Test Item Value Reference Range Interpretation [...] 6-55 347) CBC W/PLT COUNT & AUTO [id number] 19:05:00 Test Item Value Reference Range Interpretation [...] % 0-1 PERCENT (BEAKER) (test code = 2802)
[2021-06-14 10:16] LABS: Urine Blood Trace-intact (Negative); Urine Glucose Negative (Negative); Urine Protein Negative (Negative); Urine pH 5.5 (5.0-7.0)
[2021-06-14 10:30] LABS: Protime INR 0.95
--- NOTE | 2021-06-14 10:30 | RAD REPORT ---
EXAM DESCRIPTION: CT - Head C Spine Cap Wo Con - 06/14/2021 10:12 am TECHNIQUE: Computed axial tomography of the head and cervical spine was obtained. Coronal and sagitt al reconstruction was performed Computed axial tomography of the chest, abdomen and pelvis was obtained. Contrast was not requested. All CT scans are performed using dose optimization technique as appropriate and may include automated exposure control or mA/KV adjustment according to patient size. CLINICAL HISTORY: Head and neck injury with chest and abdominal pain status post fall. Unresponsive COMPARISON: CT 2019 and 2020 FINDINGS: An intracranial bleed is not seen. The ventricles are normal in caliber. An extra-axial fluid collection is not noted. . Fluid within the sinuses/mastoids is not seen. A cervical fracture is not seen. No dislocation is noted. Mild chronic anterior subluxation C6 on C7 with obliteration of disc space. The evaluation of mediastinum, veda, vessels, solid organs and bowel are limited secondary to the lac k of contrast administration. A mediastinal hematoma is not noted. A pleural effusion is not seen. A lung contusion is not present. The liver,spleen, pancreas, adrenals,kidneys and bladder do not demonstrate a traumatic injury. Large right inguinal hernia contains bowel IMPRESSION: 1. No acute intracranial abnormality is seen. 2. A cervical fracture is not visualized. If the patient continues have symptoms to suggest intracran ial/spinal cord pathology MRI be recommended 3. No traumatic abnormality involving the chest/abdomen/pelvis.
[2021-06-14 10:31] LABS: Absolute Lymphocytes (CBC) 1.5 K/uL (0.7-4.9); Hematocrit 34.2 % (39.6-49.0); Lymphocytes % 28.7 % (15.3-44.8); MPV 7.2 fL (7.6-11.3); RBC Red Blood Cell Count 3.72 M/uL (4.33-5.43)
[2021-06-14 10:51] LABS: Albumin 3.7 g/dL (3.4-5.0); Bilirubin Direct 0.1 mg/dL (0-0.2); Bilirubin Total 0.5 mg/dL (0.2-1.0); Magnesium 2.3 mg/dL (1.8-2.4); Potassium 4.4 mmol/L (3.5-5.1); Protein, Total 7.5 g/dL (6.4-8.2)
--- NOTE | 2021-06-14 11:10 | RAD REPORT ---
EXAM DESCRIPTION: Corey Single View06/14/2021 10:49 am CLINICAL HISTORY: Alteration of consciousness COMPARISON: 2020 FINDINGS: The lungs appear clear of acute infiltrate. The heart is borderline enlarged IMPRESSION: No acute abnormalities displayed
--- NOTE | 2021-06-14 12:03 | EDPHYS ---
Physician Documentation [facility] Name: Sumanth Louis Age: 81 yrs Sex: Male : 1940 Arrival Date: 06/14/2021 Time: 09:53 Bed 2 Private MD: ED Physician Sebastian Tineo HPI: 06/15 17:47 This 81 yrs old Male presents to ER via EMS with complaints of Trauma Complaint. kdr 17:48 The patient was found unresponsive on the floor. He lives by himself and sometimes in kdr the night he gets up. It would appear that he had struck his head as there is a contusion on his forehead. Is unknown how long he was on the ground.. Historical: - Allergies: 06/14 10:07 No Known Allergies; ww - Home Meds: 10:07 atorvastatin 20 mg Oral tab 1 tab once daily [Active]; carbidopa-levodopa 25-250 mg ww Oral tab 1 tab 4 times per day [Active]; fludrocortisone 0.1 mg Oral tab 1 tab twice a day [Active]; memantine Oral [Active]; Mirtazapine Oral [Active]; One-A-Day Men's Multivitamin 400-300 mcg Oral tab daily [Active]; - PMHx: 10:07 Anemia; Anxiety; Bilateral degeneration of macula; CHF; Dementia; Essential ww Hypertension; Orthostatic hypotension; Inguinal hernia R; osteoarthritis; PAD; Pancreatitis; Parkinsons; Vitamin D3 deficiency; - Immunization history: Last tetanus immunization: unknown. - Social history:: Smoking status: Patient/guardian denies using tobacco, the patient reports quitting approximately 40 years ago. ROS: 06/15 17:48 Constitutional: Patient has dementia Eyes: Negative for injury, pain, redness, and kdr discharge, Neck: Negative for injury, pain, and swelling, Cardiovascular: Negative for chest pain, palpitations, and edema, Respiratory: Negative for shortness of breath, cough, wheezing, and pleuritic chest pain, Abdomen/GI: Negative for abdominal pain, nausea, vomiting, diarrhea, and constipation, Back: Negative for injury and pain, MS/Extremity: Negative for injury and deformity, Skin: Negative for injury, rash, and discoloration, Allergy/Immunology: Negative for hives, rash, and allergies, Endocrine: Negative for neck swelling, polydipsia, polyuria, polyphagia, and marked weight changes, Hematologic/Lymphatic: Negative for swollen nodes, abnormal bleeding, and unusual bruising. Unable to obtain ROS due to baseline dementia. Exam: 06/14 10:20 ECG was reviewed by the Attending Physician. kdr 06/15 17:48 Constitutional: This is a well developed, well nourished patient who is awake, alert, kdr and in no acute distress. Head/Face: Normocephalic, patient has a contusion on his forehead and there are multiple abrasions on his head and upper extremity Neck: Trachea midline, no thyromegaly or masses palpated, and no cervical lymphadenopathy. Supple, full range of motion without nuchal rigidity, or vertebral point tenderness. No Meningismus. Chest/axilla: Normal chest wall appearance and motion. Nontender with no deformity. No lesions are appreciated. Cardiovascular: Regular rate and rhythm with a normal S1 and S2. No gallops, murmurs, or rubs. Normal PMI, no JVD. No pulse deficits. Respiratory: Lungs have equal breath sounds bilaterally, clear to auscultation and percussion. No rales, rhonchi or wheezes noted. No increased work of breathing, no retractions or nasal flaring. Abdomen/GI: Soft, non-tender, with normal bowel sounds. No distension or tympany. No guarding or rebound. No evidence of tenderness throughout. Back: No spinal tenderness. No costovertebral tenderness. Full range of motion. Skin: injury, abrasion(s), moderate sized abrasion noted, Multiple location. Vital Signs: 06/14 10:13 BP 159 / 72; Pulse 71; Resp 17; Temp 98.1(TE); Pulse Ox 96% ; Weight 70.31 kg; Height 5 ww ft. 4 in. (162.56 cm); Pain 0/10; 10:16 BP 159 / 72; Pulse 71; Resp 17; Temp 98.1; Pulse Ox 96% on R/A; Weight 70.31 kg; Height ww 5 ft. 4 in. (162.56 cm); Pain 0/10; 11:31 BP 113 / 59; Pulse 66; Resp 18; Pulse Ox 100% ; jd3 11:48 BP 137 / 72; Pulse 65; Resp 18; Pulse Ox 100% ; jd3 12:46 BP 132 / 56; Pulse 66; Resp 17 S; Pulse Ox 100% on R/A; jd3 13:23 BP 125 / 61; Pulse 64; Resp 15; Pulse Ox 97% ; ww 14:44 BP 111 / 72; Pulse 66; Resp 14 S; Pulse Ox 99% on R/A; jd3 16:57 BP 128 / 57; Pulse 66; Resp 15; Pulse Ox 99% on R/A; ld1 17:24 BP 129 / 68; Pulse 71; Resp 20 S; Pulse Ox 96% on R/A; jd3 19:00 BP 191 / 98; Pulse 59; Resp 27; Pulse Ox 97% on R/A; mk 19:30 BP 137 / 103; Pulse 61; Resp 21 S; Pulse Ox 98% on R/A; mk 20:00 BP 134 / 96; Pulse 65; Resp 24; Pulse Ox 100% on R/A; mk 10:16 Body Mass Index 26.61 (70.31 kg, 162.56 cm) ww Newton Coma Score: 10:13 Eye Response: none(1). Verbal Response: none(1). Motor Response: none(1). Total: 3. ww 11:31 Eye Response: none(1). Verbal Response: none(1). Motor Response: none(1). Total: 3. jd3 14:00 Eye Response: to voice(3). Verbal Response: confused(4). Motor Response: obeys jd3 commands(6). Total: 13. 19:00 Eye Response: to voice(3). Verbal Response: incomprehensible(2). Motor Response: obeys mk commands(6). Total: 11. 19:30 Eye Response: spontaneous(4). Verbal Response: incomprehensible(2). Motor Response: mk localizes pain(5). Total: 11. 20:00 Eye Response: to voice(3). Verbal Response: incomprehensible(2). Motor Response: obeys mk commands(6). Total: 11. Trauma Score (Adult): 10:13 Eye Response: none(0); Verbal Response: none(0); Motor Response: none(0); Systolic BP: ww > 89 mm Hg(4); Respiratory Rate: 10 to 29 per min(4); Terence Score: 3; Trauma Score: 8 11:31 Eye Response: none(0); Verbal Response: none(0); Motor Response: none(0); Systolic BP: jd3 > 89 mm Hg(4); Respiratory Rate: 10 to 29 per min(4); Terence Score: 3; Trauma Score: 8 MDM: 12:02 Patient medically screened. [facility] 06/15 18:21 Data reviewed: vital signs, nurses notes, lab test result(s), radiologic studies. kdr Counseling: I had a detailed discussion with the patient and/or guardian regarding: the historical points, exam findings, and any diagnostic results supporting the discharge/admit diagnosis, lab results, radiology results, the need for outpatient follow up. 06/14 10:04 Order name: Basic Metabolic Panel; Complete Time: 11:00 [facility] 06/14 10:04 Order name: CBC with Diff; Complete Time: 11: [facility] 06/14 10:04 Order name: Type And Screen; Complete Time: 11:52 [facility] 06/14 10:04 Order name: LFT's; Complete Time: 11: [facility] 06/14 10:04 Order name: Magnesium; Complete Time: 11: [facility] 06/14 10:04 Order name: NT PRO-BNP; Complete Time: 11:00 [facility] 06/14 10:04 Order name: PT-INR; Complete Time: 11:00 [facility] 06/14 10:04 Order name: Troponin HS; Complete Time: 11:00 [facility] 06/14 10:16 Order name: Urine Dipstick-Ancillary; Complete Time: 10:20 [facility] 06/14 12:03 Order name: COVID-19 SARS RT PCR (Document "Date of Onset" if Symptomatic) 06/14 13:23 Order name: ABO/RH no charge [facility] 06/14 15:33 Order name: Ammonia [facility] 06/14 10:04 Order name: Labs collected and sent; Complete Time: 10: [facility] 06/14 10:04 Order name: XRAY Chest (1 view); Complete Time: 11:52 [facility] 06/14 10:04 Order name: EKG; Complete Time: 10:05 [facility] 06/14 10:04 Order name: Cardiac monitoring; Complete Time: 10: [facility] 06/14 10:04 Order name: EKG - Nurse/Tech; Complete Time: 10: [facility] 06/14 10:04 Order name: IV Saline Lock; Complete Time: 10:19 kdr 06/14 10:04 Order name: O2 Per Protocol; Complete Time: 10:19 kdr 06/14 10:04 Order name: O2 Sat Monitoring; Complete Time: 10:19 kdr 06/14 10:10 Order name: Head C Spine Cap Wo Con; Complete Time: 11:00 EDMS 06/14 14:36 Order name: CONS Physician Consult EDMS 06/14 19:18 Order name: MRI EDMS 06/14 19:21 Order name: MRI EDMS 06/14 19:23 Order name: MRI EDMS EC/16 10:20 Rate is 65 beats/min. Rhythm is regular, Sinus Rhythm. QRS Vardaman is Normal. AR interval kdr is normal. QRS interval is normal. QT interval is normal. Clinical impression: NSR w/ Non-specific ST/T Changes. Administered Medications: No medications were administered Disposition Summary: 06/14/21 12:02 Hospitalization Ordered Hospitalization Status: Observation kdr Provider: Desmond Armendariz Condition: Fair kdr Problem: new kdr Symptoms: have improved kdr Bed/Room Type: Standard kdr Location: Intensive Care Unit(06/14/21 18:31) Room Assignment: 3-(06/14/21 18:31) iw Diagnosis - Altered mental status, unspecified kdr - Renal failure/insufficiency kdr Forms: - Medication Reconciliation Form kdr - SBAR form kdr Signatures: Dispatcher [employer] EDMS Sebastian Tineo MD MD kdr Aneg Acosta RN RN iw Marina Roque RN RN ww Corrections: (The following items were deleted from the chart) 10:07 10:05 Head C Spine Cap Wo Con+CT.RAD.BRZ ordered. EDMS EDMS 10:10 10:04 Head C Spine CAP W Con+CT.RAD.BRZ ordered. EDDE EDMS 10:12 10:07 PMHx: Hernia; ww ww 10: 10:07 PMHx: Hypertension; ww ww 10: 10:07 PMHx: LOCALIZED EDEMA; ww ww 10: 10:07 PMHx: chronic pain syndrome; ww ww 10: 10:07 PMHx: Bilateral deafness; ww ww 10: 10:07 PMHx: BPH; ww ww 10: 10:07 PMHx: Peripheral arterial occlusive disease; ww ww 10: 10:07 PMHx: CVA; ww 10:07 PMHx: Difficulty swallowing; ww 12:02 Telemetry/MedSurg (observation) kdr 12:02 [facility] 06/15 17:49 17:48 Stop your Synthroid until evaluated by Dr. Sadler was found unresponsive on the [facility] floor. He lives by himself and sometimes in the night he gets up. It would appear that he had struck his head as there is a contusion on his forehead. Is unknown how long he was on the ground.. kdr
--- NOTE | 2021-06-14 12:03 | ER ---
Nurse's Notes [facility] Name: Sumanth Louis Age: 81 yrs Sex: Male : 1940 Arrival Date: 06/14/2021 Time: 09:53 Bed 2 Private MD: Diagnosis: Altered mental status, unspecified;Renal failure/insufficiency Presentation: 06/14 09:58 Chief complaint: EMS states: Caregiver found patient unresponsive on the bathroom ww floor. He lives by hisself and sometime through the night he got up and fell, striking his head. Care prior to arrival: C-Collar applied Cervical collar in place. Mechanism of Injury: Fall from standing position. Trauma event details: Injury occurred: at home. Injury occurred: June 14, 2021. 09:58 Acuity: IRINA 2 ww 09:58 Method Of Arrival: EMS: [facility] 10:07 Coronavirus screen: Vaccine status: Patient reports being unvaccinated. Ebola Screen: ww Patient denies exposure to infectious person. Patient denies travel to an Ebola-affected area in the 21 days before illness onset. 10:16 Initial Sepsis Screen: Does the patient meet any 2 criteria? No. Patient's initial ww sepsis screen is negative. Does the patient have a suspected source of infection? No. Patient's initial sepsis screen is negative. Risk Assessment: Do you want to hurt yourself or someone else? Patient reports no desire to harm self or others. Onset of symptoms was June 14, 2021. Trauma Activation: Physician: ED Physician; Name: Dr. Tineo; Notified At: ; Arrived At: Physician: General Surgeon; Name: ; Notified At: ; Arrived At: Physician: Radiology; Name: ; Notified At: ; Arrived At: Physician: Respiratory; Name: ; Notified At: ; Arrived At: Physician: Lab; Name: ; Notified At: ; Arrived At: Historical: - Allergies: 10: No Known Allergies; ww - Home Meds: 10:07 atorvastatin 20 mg Oral tab 1 tab once daily [Active]; carbidopa-levodopa 25-250 mg ww Oral tab 1 tab 4 times per day [Active]; fludrocortisone 0.1 mg Oral tab 1 tab twice a day [Active]; memantine Oral [Active]; Mirtazapine Oral [Active]; One-A-Day Men's Multivitamin 400-300 mcg Oral tab daily [Active]; - PMHx: 10:07 Anemia; Anxiety; Bilateral degeneration of macula; CHF; Dementia; Essential ww Hypertension; Orthostatic hypotension; Inguinal hernia R; osteoarthritis; PAD; Pancreatitis; Parkinsons; Vitamin D3 deficiency; - Immunization history: Last tetanus immunization: unknown. - Social history:: Smoking status: Patient/guardian denies using tobacco, the patient reports quitting approximately 40 years ago. Screenin:13 Abuse screen: Denies threats or abuse. Denies injuries from another. Tuberculosis ww screening: No symptoms or risk factors identified. 11:33 Nutritional screening: No deficits noted. Fall Risk Fall in past 12 months (25 points). jd3 Total Han Fall Scale indicates Low Risk Score (25-44 pts). Fall prevention measures have been instituted. Side Rails Up X 2 Placed close to Nursing Station Frequent Obs/Assesments occuring Family Present and informed to notify staff if they need to leave bedside. Primary Survey: 10:13 NO uncontrolled hemorrhage observed. Breathing/Chest: Respiratory pattern: regular, ww Respiratory effort: unlabored. Circulation: Heart tones present. Skin color: pale, Skin temperature: warm. Disability Unconscious. Exposure/Environment: All clothing and personal items were removed. Forensic evidence collection is not deemed to be indicated at this time. Items placed in patient belonging bag. There is no evidence of uncontrolled external bleeding. 11:48 NO uncontrolled hemorrhage observed. A: The patient needs verbal stimulation to jd3 respond. Airway: Oxygen via nasal cannula at 2 liters per minute. Breathing/Chest: Respiratory pattern: regular, Respiratory effort: spontaneous, unlabored, Breath sounds: clear, bilaterally. Chest inspection: symmetrical rise and fall of the chest. Circulation: Cardiac rhythm: sinus rhythm Heart tones present. Skin color: pale, Skin temperature: warm. Disability Verbal Stimuli. Exposure/Environment: All clothing and personal items were removed. Forensic evidence collection is not deemed to be indicated at this time. Items placed in patient belonging bag. There is no evidence of uncontrolled external bleeding. A warming method has been applied: A warm blanket has been provided to the patient. Reassessment Airway Airway Patent Breathing/Chest Respiratory pattern Regular Respiratory effort Spontaneous Unlabored Breath sounds Clear Chest inspection Symmetrical. Secondary Survey: 11:51 HEENT: No deficits noted. Gastrointestinal: Bowel sounds present in all quadrants. : jd3 No signs and/or symptoms were reported regarding the genitourinary system. Musculoskeletal: No signs and/or symptoms reported regarding the musculoskeletal system. Assessment: 09:58 General: Appears unresponsive . Behavior is unresponsive. Pain: Unable to use pain ww scale. Patient is unresponsive. Neuro: Level of Consciousness is unresponsive, Oriented to none Pupils are sluggish. Cardiovascular: Capillary refill is sluggish Edema is 2+ to left ankle, left foot, right ankle and right foot. Respiratory: Airway is patent Respiratory effort is even, unlabored, Respiratory pattern is regular, symmetrical. GI: Abdomen is round Abd is soft X 4 quads right inguinal hernia. Derm: Skin is fragile, is thin. 11:32 Reassessment: No changes from previously documented assessment. Patient and/or family jd3 updated on plan of care and expected duration. Pain level reassessed. Neuro: Level of Consciousness is unresponsive, Oriented to none Pupils are sluggish. Respiratory: Airway is patent Respiratory effort is even, unlabored, Respiratory pattern is regular, symmetrical, Breath sounds are clear bilaterally. 11:46 Pain: Complains of pain in back Quality of pain is described as aching. Neuro: Level of jd3 Consciousness is awake, confused, lethargic, Oriented to none provider notified of change in neuro status. Respiratory: Airway is patent Respiratory effort is even, unlabored, Respiratory pattern is regular, symmetrical. 12:46 Reassessment: No changes from previously documented assessment. Patient and/or family jd3 updated on plan of care and expected duration. Pain level reassessed. 13:22 Reassessment: Patient appears in no apparent distress at this time. Responded to verbal ww stimuli. Neuro: Level of Consciousness is alert. 13:55 Reassessment: Patient appears in no apparent distress at this time. No changes from ke1 previously documented assessment. 14:44 Reassessment: No changes from previously documented assessment. Patient and/or family jd3 updated on plan of care and expected duration. Pain level reassessed. 15:42 Reassessment: Patient appears in no apparent distress at this time. No changes from ww previously documented assessment. 16:30 Reassessment: No changes from previously documented assessment. Patient and/or family jd3 updated on plan of care and expected duration. Pain level reassessed. 17:23 Reassessment: No changes from previously documented assessment. Patient and/or family jd3 updated on plan of care and expected duration. Pain level reassessed. Megha [phone]. or work phone here at hospital at extension [phone]. 19:00 Pain: Unable to use pain scale. Patient is disoriented. BPAS 2. Neuro: Level of mk Consciousness is lethargic, Oriented to none [employer] Vault Deliverer [employer] Installer are weak bilaterally Facial symmetry appears normal, Pupils are PERRLA, Pupil Size: 4 bilaterally. Cardiovascular: Heart tones S1 S2 present Capillary refill < 3 seconds in bilateral fingers toes JVD is absent Patient's skin is warm and dry. Pulses are 2+ in right radial artery, right dorsalis pedis artery, left radial artery and left dorsalis pedis artery. Respiratory: Airway is patent Trachea midline Respiratory effort is even, unlabored, Respiratory pattern is symmetrical, snoring occasional periods of apnea on monitor Breath sounds are clear. GI: Abdomen is flat, Abd is soft X 4 quads. Derm: Skin is fragile, is thin, Skin is dry, Skin is pale, Skin temperature is warm. Musculoskeletal:. 20:00 Reassessment: No changes from previously documented assessment. mk 20:30 Reassessment: No changes from previously documented assessment. Vital Signs: 10:13 BP 159 / 72; Pulse 71; Resp 17; Temp 98.1(TE); Pulse Ox 96% ; Weight 70.31 kg; Height 5 ww ft. 4 in. (162.56 cm); Pain 0/10; 10:16 BP 159 / 72; Pulse 71; Resp 17; Temp 98.1; Pulse Ox 96% on R/A; Weight 70.31 kg; Height ww 5 ft. 4 in. (162.56 cm); Pain 0/10; 11:31 BP 113 / 59; Pulse 66; Resp 18; Pulse Ox 100% ; jd3 11:48 BP 137 / 72; Pulse 65; Resp 18; Pulse Ox 100% ; jd3 12:46 BP 132 / 56; Pulse 66; Resp 17 S; Pulse Ox 100% on R/A; jd3 13:23 BP 125 / 61; Pulse 64; Resp 15; Pulse Ox 97% ; ww 14:44 BP 111 / 72; Pulse 66; Resp 14 S; Pulse Ox 99% on R/A; jd3 16:57 BP 128 / 57; Pulse 66; Resp 15; Pulse Ox 99% on R/A; ld1 17:24 BP 129 / 68; Pulse 71; Resp 20 S; Pulse Ox 96% on R/A; jd3 19:00 BP 191 / 98; Pulse 59; Resp 27; Pulse Ox 97% on R/A; mk 19:30 BP 137 / 103; Pulse 61; Resp 21 S; Pulse Ox 98% on R/A; mk 20:00 BP 134 / 96; Pulse 65; Resp 24; Pulse Ox 100% on R/A; mk 10:16 Body Mass Index 26.61 (70.31 kg, 162.56 cm) ww Mcewen Coma Score: 10:13 Eye Response: none(1). Verbal Response: none(1). Motor Response: none(1). Total: 3. ww 11:31 Eye Response: none(1). Verbal Response: none(1). Motor Response: none(1). Total: 3. jd3 14:00 Eye Response: to voice(3). Verbal Response: confused(4). Motor Response: obeys jd3 commands(6). Total: 13. 19:00 Eye Response: to voice(3). Verbal Response: incomprehensible(2). Motor Response: obeys mk commands(6). Total: 11. 19:30 Eye Response: spontaneous(4). Verbal Response: incomprehensible(2). Motor Response: mk localizes pain(5). Total: 11. 20:00 Eye Response: to voice(3). Verbal Response: incomprehensible(2). Motor Response: obeys mk commands(6). Total: 11. Trauma Score (Adult): 10:13 Eye Response: none(0); Verbal Response: none(0); Motor Response: none(0); Systolic BP: ww > 89 mm Hg(4); Respiratory Rate: 10 to 29 per min(4); Terence Score: 3; Trauma Score: 8 11:31 Eye Response: none(0); Verbal Response: none(0); Motor Response: none(0); Systolic BP: jd3 > 89 mm Hg(4); Respiratory Rate: 10 to 29 per min(4); Mcewen Score: 3; Trauma Score: 8 ED Course: 09:53 Patient arrived in ED. jd3 09:58 Marina Roque, RN is Primary Nurse. ww 09:59 Sebastian Tineo MD is Attending Physician. kdr 10:00 Triage completed. ww 10:07 Arm band placed on right wrist. ww 10:12 Head C Spine Cap Wo Con In Process Unspecified. EDMS 10:13 Patient has correct armband on for positive identification. Placed in gown. Bed in low ww position. Call light in reach. Side rails up X2. Adult w/ patient. Initial lab(s) drawn, by me, sent to lab. EKG done, by ED staff, reviewed by Sebastian Tineo MD. garden center manager on. Pulse ox on. NIBP on. 10:13 Patient maintains SpO2 saturation greater than 95% on room air. ww 10:15 Thermoregulation: warm blanket given to patient. jd3 10:30 Brower cath inserted, using sterile technique, 16 Fr., by ED staff, balloon inflated, to jd3 gravity drainage, urine specimen collected. Maintain EMS IV. Dressing intact. Good blood return noted. Site clean \T\ dry. Gauge \T\ site: 18 G right AC. 20 G right AC. 10:49 XRAY Chest (1 view) In Process Unspecified. EDMS 12:01 Desmond Armendariz MD is Hospitalizing Provider. kdr 20:30 Patient admitted, IV remains in place. mk 06/15 03:01 No provider procedures requiring assistance completed. mk Administered Medications: No medications were administered Intake: 0216 20:28 PO: 0ml; IV: 0ml; Tubes: 0ml (); Total: 0ml. mk Output: 20:28 Urine: 400ml; Gastric: 0ml; Stool: 0; EBL: 0ml; Drainage: 0ml; Other: 0; Total: 400ml. mk Outcome: 12:02 Decision to Hospitalize by Provider. kdr 20:27 Patient left the ED. mk 20:28 Admitted to ICU accompanied by nurse, via stretcher, on monitor, with chart, Report mk called to Cam QUINTANILLA 20:28 Condition: improved 20:28 Instructed on the need for admit. 20:28 Patient's length of stay was extended due to no available ICU beds in the hospital. Signatures: Dispatcher [employer] EDAK Sebastian Tineo MD MD kdr Tc Gould RN RN jd3 Sarah Houston RN RN ld1 Marina Roque RN RN ww Kotarski, Madeline, RN RN mk Ebrottie, Kouassi, RN RN ke1 Corrections: (The following items were deleted from the chart) 10: PMHx: Hernia; ww : PMHx: Hypertension; ww ww : PMHx: LOCALIZED EDEMA; ww ww : PMHx: chronic pain syndrome; ww : PMHx: Bilateral deafness; ww : PMHx: BPH; ww ww : PMHx: Peripheral arterial occlusive disease; ww ww : PMHx: CVA; ww : PMHx: Difficulty swallowing; [facility] 13:54 09:58 General: Appears unresponsive . Behavior is unresponsive. Smells of ke1 06/15 02:55 06/14 19:00 GCS: 13, jabier eugene
--- NOTE | 2021-06-14 14:41 | P.HP ---
Certification for Inpatient Patient admitted to: Inpatient With expected LOS: >2 Midnights Practitioner: I am a practitioner with admitting privileges, knowledge of patient current condition, hospital course, and medical plan of care. Services: Services provided to patient in accordance with Admission requirements found in Title 42 Section 412.3 of the Code of Federal Regulations Patient History Date of Service: 06/14/21 Reason for admission: fall, syncope, lethargy History of Present Illness: 81yo M, PMH: advanced dementia, Parkinsons disease with orthostatic hypotension Patient was brought into the ED after being found unresponsive on the floor of his bathroom his caregiver this morning. Last known well was yesterday evening. Patient is unable to provide any history. History obtained from his daughter (GARRETT). She states he has been having advancing dementia, has not been listening to recommendations. He has had multiple falls. He does not follow recommendations to use his walker or assistance to get up out of bed, and gets out of bed on his own. He does not exactly know when he got up and fell overnight. She states that he has done this previously, but this episode has been lasting longer for him to "snap out of it". In the ED, CT head/chest/abdomen/pelvis negative for any acute fractures or findings. Lab work rather unremarkable, mildly elevated creatinine. Daughter states he has a high fall risk due to his orthostatic hypotension, his Parkinson's, his unsteadiness, and has dementia where he does not remember/realize certain limitations. Daughter is unsure if he has been taking all of his medications as prescribed. Daughter has been trending long-term placement to normal fell due to insurance issues/coverage. Patient has been in ED for several hours, now starting to open his eyes. Allergies No Known Allergies Allergy (Verified 06/07/19 21:10) Home Medications: Aspirin [Aspir-Low] 1 tab PO DAILY 06/08/19 Atorvastatin Calcium [Lipitor*] 1 tab PO BEDTIME 06/08/19 Carbidopa/Levodopa [Carbidopa-Levo 25-250 mg Odt] 1 tab PO QID 06/08/19 Mirtazapine [Remeron*] 15 mg PO BEDTIME 06/08/19 Mv-Mins/Folic/Lycopene/Ginkgo [One Daily Men's 50+ Tablet] 1 tab PO DAILY 06/08/19 Memantine HCl [Namenda] 1 tab PO BID 09/05/19 Pramipexole Di-HCl [Pramipexole Dihydrochloride] 0.125 mg PO TID 10/14/20 Clopidogrel Bisulfate [Plavix*] 75 mg PO DAILY #0 tablet 10/15/20 Hydralazine [Apresoline*] 10 mg PO BID PRN #30 tab 10/15/20 Midodrine HCl 2.5 mg PO TID PRN #30 10/15/20 - Past Medical/Surgical History Diabetic: No -: Parkinson's -: 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 Daughter has medical power of personal injury attorney. - Family History Mother -: Lung disease, GI disease Notes: pancreatitis. diverticulitis Father -: Diabetes - Social History Smoking Status: Unknown if ever smoked Alcohol use: No CD- Drugs: No Caffeine use: Yes Review of Systems is unable to be obtained Physical Examination - Physical Exam General: Demented, Delirious, Other (Opens eyes to loud with slurred speech responds yes/no. Stuttering speech, not completely appropriate responses) HEENT: Sclerae nonicteric Neck: Supple, No LAD Respiratory: Clear to auscultation bilaterally Cardiovascular: Edema (2+ b/l lower extremity edema) Gastrointestinal: Soft and benign, Non-distended, No tenderness Musculoskeletal: No swelling Integumentary: Other (small ecchymosis on head and b/l arms) Neurological: Other (stuttering speech, moves extremities. ) - Studies Laboratory Data (last 24 hrs) 06/14/21 10:12: PT 10.9, INR 0.95 06/14/21 10:12: WBC 5.20, Hgb 11.5 L, Hct 34.2 L, Plt Count 200 06/14/21 10:12: Sodium 137, Potassium 4.4, BUN 32 H, Creatinine 1.44 H, Glucose 93, Magnesium 2.3, Total Bilirubin 0.5, AST 63 H, ALT 21, Alkaline Phosphatase 134 H Assessment and Plan - Advance Directives Does patient have a Living Will: No Does patient have a Durable POA for Healthcare: No Physician Review Additional Text: Problem List Syncope Lethargy / Unresponsive Parkinson's Disease Advanced dementia lower extremity edema We will monitor in ICU today, and frequent neuro checks MRI ordered to rule out stroke or any other intracranial process Neurology consulted, EEG ordered N.p.o., IV fluids Bedside swallow once awake Daughter states he eats very finely chopped foods After discussion with daughter, it seems these episodes in his dementia have been progressively worsening client services representative consulted, patient to receive more information on hospice, is considering this as a possibility At times and patient understands his limitations, he still does not want to follow recommendations. With his ongoing falls, Parkinson's, orthostatic hypotension, and dementia, patient probably be more appropriate to be bedbound/wheelchair bound, however he would not follow this recommendation Code: DNR Dispo: Anticipate DC in the next ~2 days Possibly hospice Time Spent Managing Pts Care (In Minutes): 60
--- NOTE | 2021-06-14 19:16 | RAD REPORT ---
EXAM DESCRIPTION: MRI - MRA Head Wo Cont - 06/14/2021 7:04 pm CLINICAL HISTORY: r/o CVA, syncope, lethargy, minimally responsive CVA COMPARISON: Brain W/Wo Cont dated 10/14/2020; Brain Wo Cont dated 09/24/2018; Brain Wo Cont dated 07/14; Brain Wo Cont dated 02/04/2018; MRA Neck W/Wo Cont dated 06/14/2021; Brain W/Wo Cont dated 2021 FINDINGS: 3D noncontrast [id number] MR angiography of the [place] was performed. Signal loss of both cavernous carotids favored to be due to artifact. No aneurysm, flow-limiting stenosis or vascular malformation is seen. Left dominant vertebral artery. The visualized dural venous sinuses appear patent. IMPRESSION: No significant flow abnormality of the [place] is identified. Artifact obscures portions of both proximal cavernous carotids.
--- NOTE | 2021-06-14 19:20 | RAD REPORT ---
EXAM DESCRIPTION: MRI - MRA Neck W/Wo Cont - 06/14/2021 7:05 pm CLINICAL HISTORY: r/o CVA, syncope, lethargy, minimally responsive COMPARISON: Brain W/Wo Cont dated 10/14/2020 FINDINGS: Contrast enhance 2D [id number] MR angiography of the neck vessels was performed. Left dominant vertebral artery. The right vertebral artery likely terminates in a branch of the PICA. The takeoff of the common carotid arteries are not well evaluated due to artifact. Both cervical ICA s are patent. IMPRESSION: The bilateral cervical ICAs and vertebral arteries are patent. Note that artifact obscur es portions of the proximal common carotid arteries and cavernous carotid arteries. No infarct or sig nificant chronic small vessel ischemic changes identified on the same-day MRI. If true stenoses were present, there would likely be some ancillary findings to suggest clinically significant stenoses. If absolute confirmation is needed, CTA of the head and neck could better evaluate .
--- NOTE | 2021-06-14 19:23 | RAD REPORT ---
EXAM DESCRIPTION: MRI - Brain W/Wo Cont - 06/14/2021 7:05 pm CLINICAL HISTORY: r/o CVA, syncope, lethargy, minimally responsive COMPARISON: MRA Head Wo Cont dated 06/14/2021; Brain W/Wo Cont dated 10/14/2020; Brain Wo Cont dated ; Brain Wo Cont dated 07/14/2018 TECHNIQUE: Sagittal T1-weighted images were obtained along with PD/heavily T2-weighted and T2-FLAIR images. Axial DWI and ADC mapping sequences were also obtained along with coronal heavily T2-weighted images were obtained. Contrast was administered. FINDINGS: No intracranial hemorrhage, mass or acute infarction. There is no edema or shift of midlin e structures. No extra-axial fluid collections. Signal voids are seen as a normal finding in the leslie r intracranial vessels. No significant white matter disease. Circumferential thickening within some of the ethmoid air cells. Mastoid fluid bilaterally. IMPRESSION: No acute intracranial abnormality. Specifically, no evidence of acute infarct. No abnorm al enhancement is identified.
[2021-06-14] MEDS: NA CHLORIDE 0.9% 1,000 ML IV SCH (20:46)
[2021-06-14] MEDS ORDERED: ONDANSETRON 4 MG/2 ML VIAL IV PRN (20:46)
[2021-06-15 05:04] LABS: Absolute Lymphocytes (CBC) 1.2 K/uL (0.7-4.9); Hematocrit 29.8 % (39.6-49.0); Lymphocytes % 22.7 % (15.3-44.8); MPV 7.6 fL (7.6-11.3); RBC Red Blood Cell Count 3.19 M/uL (4.33-5.43)
[2021-06-15 05:23] LABS: Bilirubin Total 0.5 mg/dL (0.2-1.0); Magnesium 2.2 mg/dL (1.8-2.4); Potassium 4.1 mmol/L (3.5-5.1); Protein, Total 6.3 g/dL (6.4-8.2)
--- NOTE | 2021-06-15 06:04 | P.PN ---
Date of Service: 06/15/21 Subjective: No acute events overnight Patient more awake, answering some questions, with dementia/confusion ROS: 10 point ROS as noted above, otherwise negative Physical exam General: Demented, Opens eyes to loud with slurred speech responds yes/no. Stut tering speech, not completely appropriate responses HEENT: Sclerae nonicteric Respiratory: Clear to auscultation bilaterally Cardiovascular: Edema (1-2+ b/l lower extremity edema) Gastrointestinal: Soft and benign, Non-distended, No tenderness Neurological: stuttering speech, moves extremities Problem List Syncope Lethargy / Unresponsive Parkinson's Disease Advanced dementia lower extremity edema improving, more awake MRI negative Neurology consulted, EEG ordered N.p.o., IV fluids, Bedside swallow; speech therapy Daughter states he eats very finely chopped foods After discussion with daughter, it seems these episodes in his dementia have been progressively worsening clinical services director consulted, patient's family to receive more information on hospice, is considering this as a possibility At times that patient understands his limitations, he still does not want to follow recommendations. With his ongoing falls, Parkinson's, orthostatic hypotension, and dementia, patient probably be more appropriate to be bedbound/wheelchair bound, however he would not follow this recommendation Code: DNR Dispo: Anticipate DC in the next ~2 days Possibly hospice possible transfer to floor later if stable Time Spent Managing Pts Care (In Minutes): 35
[2021-06-15] MEDS: ENOXAPARIN 40 MG/0.4 ML SQ SCH (09:16)
[2021-06-15] MEDS: NA CHLORIDE 0.9% 1,000 ML IV SCH ×2 (09:16→17:09)
[2021-06-15] MEDS ORDERED: CARBIDOPA PO SCH (17:00)
[2021-06-15] MEDS ORDERED: LEVODOPA PO SCH (17:00)
[2021-06-15] MEDS: CARBIDOPA/LEVODOPA 25/250 TAB PO SCH ×2 (17:11→20:23)
[2021-06-15] MEDS: MEMANTINE HCL 10 MG TABLET PO SCH (20:23)
[2021-06-15] MEDS ORDERED: MEMANTINE HCL 5 MG PO SCH (21:00)
[2021-06-16] MEDS: NA CHLORIDE 0.9% 1,000 ML IV SCH ×3 (05:22→17:06)
[2021-06-16 06:21] LABS: Potassium 4.1 mmol/L (3.5-5.1)
--- NOTE | 2021-06-16 06:25 | P.PN ---
Date of Service: 06/16/21 Subjective: more awake asking for bedpan slurred speech confuse ROS: 10 point ROS as noted above, otherwise negative Physical exam General: Demented, slurred speech, stuttering HEENT: Sclerae nonicteric Respiratory: Clear to auscultation bilaterally Cardiovascular: Edema (1-2+ b/l lower extremity edema) Gastrointestinal: Soft and benign, Non-distended, No tenderness Neurological: stuttering speech, moves extremities Problem List Syncope Lethargy / Unresponsive Parkinson's Disease Advanced dementia lower extremity edema improving, more awake/alert MRI negative Neurology consulted, EEG ordered N.p.o., IV fluids, Bedside swallow; speech therapy Daughter states he eats very finely chopped foods After discussion with daughter, it seems these episodes in his dementia have been progressively worsening MPOA - would like to discuss with psychiatric social worker for possible placement At times that patient understands his limitations, he still does not want to follow recommendations. With his ongoing falls, Parkinson's, orthostatic hypotension, and dementia, patient probably be more appropriate to be bedbound/wheelchair bound, however he would not follow this recommendation Code: DNR Dispo: Anticipate DC in the next ~2 days placement, with possible hospice psychiatric social worker consulted Time Spent Managing Pts Care (In Minutes): 35
[2021-06-16] MEDS: ENOXAPARIN 40 MG/0.4 ML SQ SCH (08:47)
[2021-06-16] MEDS: MEMANTINE HCL 10 MG TABLET PO SCH ×2 (08:47→21:00)
[2021-06-16] MEDS: CARBIDOPA/LEVODOPA 25/250 TAB PO SCH ×4 (08:48→21:00)
--- NOTE | 2021-06-16 09:16 | EEG ---
CHART: [id number] TEST ID#: [id number] DATE OF STUDY: 06/15/2021 THE EEG WAS RECORDED PORTABLE IN THE PATIENT'S ROOM ON A 17 CHANNEL MACHINE. ELECTRODES WERE APPLIED IN THE USUAL MANNER USING THE INTERNATIONAL 10-20 SYSTEM. THE WAKING BACKGROUND RHYTHM IN THIS RECORD CONSISTS OF FAIRLY WELL DEVELOPED AND FAIRLY WELL ORGANIZED WAVES OF 7-8 HZ., MAXIMAL IN THE POSTERIOR HEAD REGIONS WHICH ATTENUATE NORMALLY WITH EYE OPENING. LOW-VOLTAGE 3-4 HZ MIXED WITH LOW-VOLTAGE 18-22 HZ ACTIVITY IS EXPRESSED IN THE FRONTAL ERGIONS. THERE ARE NO FOCAL OR LATERALIZING FEATURES. NO EPILEPTIFORM ACTIVITY APPEARS. SLEEP OCCURRED NATURALLY. IN ADDITION TO NORMAL SLEEP PATTERNS ARE PRESENT. HYPERVENTILATION WAS NOT PERFORMED. PHOTIC STIMULATION PRODUCED FAIR DRIVING BILATERALLY. IMPRESSION: THIS IS A MILDLY ABNORMAL EEG DUE TO A MILDLY SLOW BACKGROUND AND POSTERIOR DOMINANT RHYTHM. THESE ARE NON-SPECIFIC FINDINGS INDICATING THE PRESENCE OF A MILD DIFFUSE DISTURBANCE IN CEREBRAL FUNCTION.
[2021-06-16] MEDS: ATORVASTATIN 20 MG TAB PO SCH (21:00)
[2021-06-16] MEDS: MIRTAZAPINE 15 MG TAB PO SCH (21:00)
--- NOTE | 2021-06-17 06:32 | P.PN ---
Date of Service: 06/17/21 Subjective: Improving, more awake/alert, oriented x2 Wants to get out of bed Dementia Patient went into A. fib this morning ROS: 10 point ROS as noted above, otherwise negative Physical exam General: Demented, slurred speech, stuttering HEENT: Sclerae nonicteric Respiratory: Clear to auscultation bilaterally Cardiovascular: Edema (1+ b/l lower extremity edema), irregularly irregular rhythm Gastrointestinal: Soft and benign, Non-distended, No tenderness Neurological: stuttering speech, moves extremities Problem List Syncope Lethargy / Unresponsive A. fib, new onset Parkinson's Disease Advanced dementia lower extremity edema improving, more awake/alert MRI negative, Neurology consulted, EEG ordered passed bedside swallow, food as tolerated, speech therapy following Daughter states he eats very finely chopped foods new afib - when patient was getting up to use bedside potty IV lopressor x1 given, 25mg PO given. Patient reportedly had quick pause / bradycardia to 30s for a few seconds then back into sinus rhythm Cardiology consulted, recommended digoxin 0.25 IV q6hrs x4 doses total, will use if he is back into afib discussed with both daughters, it seems these episodes in his dementia have been progressively worsening With his ongoing falls, Parkinson's, orthostatic hypotension, and dementia, patient probably be more appropriate to be bedbound/wheelchair bound, however he would not follow this recommendation patient needs more supervision, older adult social work specialist consulted for SNF Code: DNR Dispo: Anticipate DC in the next ~2 days, needs SNF / possible placement older adult social work specialist consulted Time Spent Managing Pts Care (In Minutes): 35
[2021-06-17 06:57] LABS: Hematocrit 32.1 % (39.6-49.0); Lymphocytes % 19.6 % (15.3-44.8); MPV 7.5 fL (7.6-11.3); RBC Red Blood Cell Count 3.44 M/uL (4.33-5.43)
[2021-06-17 07:14] LABS: Magnesium 2.1 mg/dL (1.8-2.4); Potassium 3.8 mmol/L (3.5-5.1)
[2021-06-17] MEDS ORDERED: METOPROLOL TARTRATE 5 MG/5 ML INJ IV STA ×2 (09:16→11:04)
[2021-06-17] MEDS: ASPIRIN EC 81 MG TAB PO SCH (09:53)
[2021-06-17] MEDS: ENOXAPARIN 40 MG/0.4 ML SQ SCH (09:53)
[2021-06-17] MEDS: CARBIDOPA/LEVODOPA 25/250 TAB PO SCH ×4 (09:53→20:43)
[2021-06-17] MEDS: CLOPIDOGREL 75 MG TABLET PO SCH (09:53)
[2021-06-17] MEDS: MEMANTINE HCL 10 MG TABLET PO SCH ×2 (09:54→20:41)
[2021-06-17] MEDS: PRAMIPEXOLE 0.25 MG TAB PO SCH ×3 (09:54→20:42)
[2021-06-17] MEDS: NA CHLORIDE 0.9% 1,000 ML IV SCH (10:02)
[2021-06-17] MEDS ORDERED: METOPROLOL TAR 25 MG TAB PO ONE (11:18)
[2021-06-17] MEDS: MIRTAZAPINE 15 MG TAB PO SCH (20:41)
[2021-06-17] MEDS: ATORVASTATIN 20 MG TAB PO SCH (20:43)
--- NOTE | 2021-06-18 06:20 | P.PN ---
Date of Service: 06/18/21 Subjective: Brief episode of A. fib yesterday, resolved Patient denies any new symptoms/concerns Eating ROS: 10 point ROS as noted above, otherwise negative Physical exam General: Demented, slurred speech, stuttering HEENT: Sclerae nonicteric Respiratory: Clear to auscultation bilaterally Cardiovascular: Edema (trace to 1+ b/l lower extremity edema), regular rate/rhythm Gastrointestinal: Soft and benign, Non-distended, No tenderness Neurological: stuttering speech, moves extremities Problem List Syncope Lethargy / Unresponsive A. fib, new onset; resolved Parkinson's Disease with autonomic dysfunction (orthostatic hypotension) Advanced dementia lower extremity edema improved; suspect near baseline now MRI negative, Neurology consulted, EEG ordered passed bedside swallow, food as tolerated, speech therapy following; Daughter states he eats very finely chopped foods new afib - on 06/17, noted when patient got up to bedside commode, IV lopressor x1 given, 25mg PO given. Patient reportedly had quick pause / bradycardia to 30s for a few seconds then back into sinus rhythm Cardiology consulted, recommended digoxin 0.25 IV q6hrs x4 doses total, will use if he is back into afib Remains in sinus rhythm Patient too high risk for anticoagulation discussed with both daughters, it seems these episodes in his dementia have been progressively worsening With his ongoing falls, Parkinson's, orthostatic hypotension, and dementia, patient probably be more appropriate to be bedbound/wheelchair bound, however he would not follow this recommendation patient needs more supervision, social services director consulted for SNF Code: DNR Dispo: Anticipate DC in the next ~2-3 days, needs SNF / possible placement social services director consulted Time Spent Managing Pts Care (In Minutes): 35
[2021-06-18 07:18] LABS: Potassium 3.8 mmol/L (3.5-5.1)
[2021-06-18] MEDS: CARBIDOPA/LEVODOPA 25/250 TAB PO SCH ×4 (09:17→21:52)
[2021-06-18] MEDS: PRAMIPEXOLE 0.25 MG TAB PO SCH ×3 (09:17→21:54)
[2021-06-18] MEDS: ASPIRIN EC 81 MG TAB PO SCH (09:17)
[2021-06-18] MEDS: MEMANTINE HCL 10 MG TABLET PO SCH ×2 (09:17→21:52)
[2021-06-18] MEDS: ENOXAPARIN 40 MG/0.4 ML SQ SCH (09:17)
[2021-06-18] MEDS: CLOPIDOGREL 75 MG TABLET PO SCH (09:18)
[2021-06-18] MEDS: HYDRALAZINE HCL 20 MG/ML VIAL IV PRN (10:10)
[2021-06-18] MEDS ORDERED: ACETAMINOPHEN 500 MG TAB PO PRN (13:31)
[2021-06-18] MEDS: MIRTAZAPINE 15 MG TAB PO SCH (21:52)
[2021-06-18] MEDS: ATORVASTATIN 20 MG TAB PO SCH (21:52)
[2021-06-19 04:49] LABS: Hematocrit 30.9 % (39.6-49.0); MPV 7.5 fL (7.6-11.3); RBC Red Blood Cell Count 3.35 M/uL (4.33-5.43)
--- NOTE | 2021-06-19 06:20 | P.PN ---
Date of Service: 06/19/21 Subjective: no significant changes HR stable, no further afib events denies any pain ROS: 10 point ROS as noted above, otherwise negative Physical exam General: Demented, slurred speech, stuttering HEENT: Sclerae nonicteric Respiratory: Clear to auscultation bilaterally Cardiovascular: Edema (trace to 1+ b/l lower extremity edema), regular rate/rhythm Gastrointestinal: Soft and benign, Non-distended, No tenderness Neurological: stuttering speech, moves extremities Problem List Syncope Lethargy / Unresponsive A. fib, new onset; resolved Parkinson's Disease with autonomic dysfunction (orthostatic hypotension) Advanced dementia lower extremity edema improved; suspect near baseline now MRI negative, Neurology consulted, EEG ordered passed bedside swallow, food as tolerated, speech therapy following; Daughter states he eats very finely chopped foods new afib - on 06/17, noted when patient got up to bedside commode, resolved IV lopressor x1 given, 25mg PO given. Patient reportedly had quick pause / bradycardia to 30s for a few seconds Cardiology consulted, recommended digoxin 0.25 IV q6hrs x4 doses total, will use if he is back into afib Remains in sinus rhythm Patient too high risk for anticoagulation discussed with both daughters, it seems these episodes in his dementia have been progressively worsening With his ongoing falls, Parkinson's, orthostatic hypotension, and dementia, patient probably be more appropriate to be bedbound/wheelchair bound, however he would not follow this recommendation patient needs more supervision, social service assistant consulted for SNF Code: DNR Dispo: Anticipate DC in the next ~2-3 days, needs SNF / possible placement social service assistant consulted Time Spent Managing Pts Care (In Minutes): 35
[2021-06-19] MEDS: MEMANTINE HCL 10 MG TABLET PO SCH ×2 (10:06→20:54)
[2021-06-19] MEDS: ENOXAPARIN 40 MG/0.4 ML SQ SCH (10:06)
[2021-06-19] MEDS: PRAMIPEXOLE 0.25 MG TAB PO SCH ×3 (10:08→20:54)
[2021-06-19] MEDS: CLOPIDOGREL 75 MG TABLET PO SCH (10:10)
[2021-06-19] MEDS: CARBIDOPA/LEVODOPA 25/250 TAB PO SCH ×4 (10:10→20:55)
[2021-06-19] MEDS: ASPIRIN EC 81 MG TAB PO SCH (10:11)
--- NOTE | 2021-06-19 12:17 | CON ---
Date of Consultation: 06/17/2021 Reason For Consultation: Atrial fibrillation. History Of Present Illness: Mr. Louis is 81. Has a history of congestive heart failure, anemia, per ipheral arterial disease, orthostatic hypotension, pancreatitis, and parkinsonism. Was admitted with dementia, parkinsonism, syncope and lethargy. While he was in the hospital, had an episode of rapid atrial fibrillation that has resolved by the time I saw him. He also has a history of mild aortic s tenosis as of an echocardiogram in April 2020. He has a normal ejection fraction. He has diastoli c congestive heart failure. He is a do not resuscitate. Past Medical History: As stated above. Allergies: NONE. Review of Systems: Negative. Social History: Negative. Family History: Noncontributory. Medications: At home include aspirin, Lipitor, metoprolol, Sinemet, memantine, Plavix. He is also n ow on Lovenox and at home he takes hydralazine. Physical Examination: General: When I saw him, his atrial fibrillation has resolved. He is in sinus rhythm now. He has h ad episode of bradycardia after a low dose of metoprolol. HEENT: Negative. Neck: Supple with no bruit. Chest: Clear. Cardiac: Revealed mild aortic stenosis. Regular rhythm and rate. Positive S4 gallops. Abdomen: Benign. Extremities: Revealed no clubbing, cyanosis, or edema. Diagnostic Data: Unremarkable. Impression And Plan: Paroxysmal atrial fibrillation in the patient who has severe bradycardia with a low-dose metoprolol. I would give him digoxin on an as-needed basis 0.25 mg IV push for total of 4 dosages and then after that, use metoprolol 5 mg IV push p.r.n. heart rate more than 120, but I do no t think I will leave him on a regular metoprolol dose with his bradycardia the way it is. The patien t was a full code. We will consider him for a pacemaker as he has sick sinus syndrome. For now, we will manage him conservatively. Echocardiogram is pending. He is not an anticoagulation candidate. His other problems include aortic stenosis that is mild, diastolic congestive heart failure that is stable. He has chronic anemia, peripheral arterial disease, orthostatic hypotension, pancreatitis, a nd parkinsonism. These are stable at this point. We will continue to follow him as needed. EL/MODL Voice ID: [id number] Report ID: [id number]
[2021-06-19] MEDS: MIRTAZAPINE 15 MG TAB PO SCH (20:55)
[2021-06-19] MEDS: ATORVASTATIN 20 MG TAB PO SCH (20:55)
[2021-06-20] MEDS: HYDRALAZINE HCL 20 MG/ML VIAL IV PRN ×2 (00:28→21:41)
[2021-06-20] MEDS: ALBUTEROL 2.5 MG/3 ML NEB SOL NEB PRN (04:00)
[2021-06-20 06:03] LABS: MPV 7.4 fL (7.6-11.3); RBC Red Blood Cell Count 3.37 M/uL (4.33-5.43)
[2021-06-20 06:15] LABS: Albumin 2.8 g/dL (3.4-5.0); Potassium 3.4 mmol/L (3.5-5.1)
[2021-06-20 06:17] LABS: Bilirubin Total 0.3 mg/dL (0.2-1.0); Protein, Total 6.3 g/dL (6.4-8.2)
--- NOTE | 2021-06-20 07:51 | ECHO ---
HEIGHT: 5 ft 4 in WEIGHT: 155 lb 0 oz DATE OF STUDY: 06/19/[address]: Franco Preciado MD 2-DIMENSIONAL: YES M.MODE: YES DOPPLER: YES COLOR FLOW: YES TDS: NO PORTABLE: NO DEFINITY: NO BUBBLE STUDY: NO DIAGNOSIS: AORTIC STENOSIS CARDIAC HISTORY: CATHERIZATION: SURGERY: PROSTHETIC VALVE: PACEMAKER: MEASUREMENTS (cm) DIASTOLIC (NORMALS) SYSTOLIC (NORMALS) IVSd 1.3 (0.6-1.2) LA Diam 3.1 (1.9-4.0) LVEF 52% LVIDd 3.4 (3.5-5.7) LVIDs 2.5 (2.0-3.5) %FS 26% LVPWd 1.4 (0.6-1.2) Ao Diam 2.7 (2.0-3.7) 2 DIMENSIONAL ASSESSMENT: RIGHT ATRIUM: NORMAL LEFT ATRIUM: NORMAL RIGHT VENTRICLE: NORMAL LEFT VENTRICLE: LEFT VENTRICULAR HYPERTROPHY TRICUSPID VALVE: NORMAL MITRAL VALVE: NORMAL PULMONIC VALVE: NORMAL AORTIC VALVE: STENOTIC PERICARDIAL EFFUSION: NONE AORTIC ROOT: NORMAL LEFT VENTRICULAR WALL MOTION: NORMAL EJECTION FRACTION, DECREASED LEFT VENTRICULAR COMPLIANCE. DOPPLER/COLOR FLOW: MODERATE AORTIC STENOSIS - AORTIC VALVE AREA 1.4 CENTIMETERS SQUARED. COMMENTS: MODERATE AORTIC STENOSIS - 1.4 CENTIMETERS SQUARED. LEFT VENTRICULAR HYPERTROPHY. DIASTOLIC DYSFUNCTION. NORMAL EJECTION FRACTION. TECHNOLOGIST: MAXINE LOVE
[2021-06-20] MEDS ORDERED: POTASSIUM 25 MEQ EFFERV TAB PO ONE (09:00)
[2021-06-20] MEDS: ENOXAPARIN 40 MG/0.4 ML SQ SCH (09:17)
[2021-06-20] MEDS: MEMANTINE HCL 10 MG TABLET PO SCH ×2 (09:17→20:40)
[2021-06-20] MEDS: CLOPIDOGREL 75 MG TABLET PO SCH (09:18)
[2021-06-20] MEDS: CARBIDOPA/LEVODOPA 25/250 TAB PO SCH ×5 (09:18→20:40)
[2021-06-20] MEDS: ASPIRIN EC 81 MG TAB PO SCH (09:18)
[2021-06-20] MEDS: PRAMIPEXOLE 0.25 MG TAB PO SCH ×3 (09:32→20:40)
--- NOTE | 2021-06-20 15:30 | P.PN ---
Subjective Date of Service: 06/20/21 Chief Complaint: fall, syncope, lethargy Nursing staff report patient has been tolerating pured diet and honey thickened liquids. Patient is awake and communicates meaningfully. He has no complaint today. Physical Examination - Vital Signs Temperature: 97.5 F Blood Pressure: 190/78 Pulse: 67 Respirations: 16 Pulse Ox (%): 94 Assessment And Plan - Plan Physical exam General: Demented. HEENT: Sclerae nonicteric Respiratory: Clear to auscultation bilaterally Cardiovascular: Edema (trace to 1+ b/l lower extremity edema), regular rate/rhythm Gastrointestinal: Soft and benign, Non-distended, No tenderness Neurological: Normal speech today, no focal motor deficit Problem List Syncope Lethargy / Unresponsive A. fib, new onset; resolved Parkinson's Disease with autonomic dysfunction (orthostatic hypotension) Advanced dementia lower extremity edema improved; suspect near baseline now MRI negative, Neurology consulted, EEG unremarkable passed bedside swallow, patient tolerating diet. new afib - on 06/17, noted when patient got up to bedside commode, resolved IV lopressor x1 given, 25mg PO given. Patient reportedly had quick pause / bradycardia to 30s for a few seconds Cardiology consulted, recommended digoxin 0.25 IV q6hrs x4 doses total, will use if he is back into afib Remains in sinus rhythm. Patient is not a candidate for anticoagulation Code: DNR Dispo: He needs SNF / possible placement social insurance analyst is following. DC to SNF pending insurance authorization.
--- NOTE | 2021-06-20 16:11 | EKG ---
Test Date: 2021-06-17 Test Time: 09:40:39 News Camera Person: ESVIN MEASUREMENT RESULTS: Intervals: Rate: 131 ME: QRSD: 80 QT: 362 QTc: 534 [place]: P: ME: QRS: -19 T: -21 INTERPRETIVE STATEMENTS: Atrial fibrillation /rvr Nonspecific ST and T wave abnormality Abnormal ECG Compared to ECG 06/14/2021 10:03:24 Sinus rhythm no longer present ST (T wave) deviation still present Electronically Signed On 06-20-21 16:11:21 FOOD SERVICE DRIVER by Franco Preciado
[2021-06-20] MEDS: MIRTAZAPINE 15 MG TAB PO SCH (20:40)
[2021-06-20] MEDS: ATORVASTATIN 20 MG TAB PO SCH (20:40)
[2021-06-21 04:00] LABS: Absolute Lymphocytes (CBC) 0.9 K/uL (0.7-4.9); Hematocrit 30.8 % (39.6-49.0); MPV 7.1 fL (7.6-11.3); RBC Red Blood Cell Count 3.38 M/uL (4.33-5.43)
[2021-06-21 04:28] LABS: Potassium 3.7 mmol/L (3.5-5.1)
[2021-06-21] MEDS ORDERED: POTASSIUM 25 MEQ EFFERV TAB PO ONE (09:00)
[2021-06-21] MEDS: ENOXAPARIN 40 MG/0.4 ML SQ SCH (10:13)
[2021-06-21] MEDS: PRAMIPEXOLE 0.25 MG TAB PO SCH ×3 (10:13→20:51)
[2021-06-21] MEDS: CARBIDOPA/LEVODOPA 25/250 TAB PO SCH ×4 (10:13→20:52)
[2021-06-21] MEDS: ASPIRIN EC 81 MG TAB PO SCH (10:13)
[2021-06-21] MEDS: CLOPIDOGREL 75 MG TABLET PO SCH (10:13)
[2021-06-21] MEDS: MEMANTINE HCL 10 MG TABLET PO SCH ×2 (10:14→20:52)
--- NOTE | 2021-06-21 15:10 | P.DS ---
Admission Date: 06/14/21 Discharge Date: 06/21/21 Disposition: TRANSFER TO HALF-WAY Discharge Condition: FAIR Reason for Admission: fall, syncope, lethargy Brief History of Present Illness: 81yo M, PMH: advanced dementia, Parkinsons disease with orthostatic hypotension Patient was brought into the ED after being found unresponsive on the floor of his bathroom his caregiver this morning. Patient unable to provide any history. History obtained from his daughter (GARRETT). Apparently patient have had multiple falls. He does not follow recommendations to use his walker or assistance to get up out of bed, and gets out of bed on his own. He does not exactly know when he got up and fell overnight. She states that he has done this previously, but this episode has been lasting longer for him to "snap out of it". In the ED, CT head/chest/abdomen/pelvis negative for any acute fractures or findings. Lab work rather unremarkable, mildly elevated creatinine. Daughter states he has a high fall risk due to his orthostatic hypotension, his Parkinson's, his unsteadiness, and has dementia where he does not remember/realize certain limitations. Daughter was unsure if he has been taking all of his medications as prescribed. Patient is hospitalized for further management. Hospital Course: Problem List Syncope Lethargy / Unresponsive A. fib, new onset; resolved Parkinson's Disease with autonomic dysfunction (orthostatic hypotension) Advanced dementia lower extremity edema Patient admitted to the medical floor and started on supportive measures.. MRI of the brain done was negative, Neurology consulted, EEG done was unremarkable He passed bedside swallow and he tolerated diet. He developed new afib - on 06/17. He was given IV lopressor x1 and then put on metoprolol 25mg PO twice daily. Patient reportedly had quick pause / bradycardia to 30s for a few seconds Cardiology consulted, who recommended recommended digoxin 0.25 IV q6hrs x4 doses total if he goes into A. fib again. He spontaneously converted to sinus rhythm. A. fib with transient. Patient was maintained on metoprolol 25 mg twice daily. Patient is not a candidate for anticoagulation. He is DNR. Patient's evaluated by PT and skilled rehab recommend. Patient has been accepted to SNF and he is clinically stable for discharge. Vital Signs/Physical Exam: Temp Pulse Resp BP Pulse Ox 97.2 F 62 16 157/61 H 97 06/21/21 12:00 06/21/21 12:00 06/21/21 12:00 06/21/21 12:00 06/21/21 12:00 General: In no apparent distress HEENT: Mucous membr. moist/pink Neck: JVD not distended Respiratory: Clear to auscultation bilaterally, Normal air movement Cardiovascular: No edema, Regular rate/rhythm, Normal S1 S2 Gastrointestinal: Soft and benign, Non-distended, No tenderness Musculoskeletal: No swelling Integumentary: No cyanosis Laboratory Data at Discharge: WBC 4.10 K/uL (4.3-10.9) L 06/21/21 03:29 Hgb 10.5 g/dL (13.6-17.9) L 06/21/21 03:29 Hct 30.8 % (39.6-49.0) L 06/21/21 03:29 Plt Count 182 K/uL (152-406) 06/21/21 03:29 PT 10.9 SECONDS (9.5-12.5) 06/14/21 10:12 INR 0.95 06/14/21 10:12 Sodium 134 mmol/L (136-145) L 06/21/21 03:29 Potassium 3.7 mmol/L (3.5-5.1) 06/21/21 03:29 BUN 18 mg/dL (7-18) 06/21/21 03:29 Creatinine 0.89 mg/dL (0.55-1.3) 06/21/21 03:29 Glucose 95 mg/dL (74-106) 06/21/21 03:29 Magnesium 2.0 mg/dL (1.8-2.4) 06/20/21 05:40 Total Bilirubin 0.3 mg/dL (0.2-1.0) 06/20/21 05:40 AST 28 U/L (15-37) 06/20/21 05:40 ALT 11 U/L (12-78) L 06/20/21 05:40 Alkaline Phosphatase 103 U/L (45-117) 06/20/21 05:40 Home Medications: Aspirin [Aspir-Low] 1 tab PO DAILY 06/08/19 Atorvastatin Calcium [Lipitor*] 1 tab PO BEDTIME 06/08/19 Carbidopa/Levodopa [Carbidopa-Levo 25-250 mg Odt] 1 tab PO QID 06/08/19 Mirtazapine [Remeron*] 15 mg PO BEDTIME 06/08/19 Mv-Mins/Folic/Lycopene/Ginkgo [One Daily Men's 50+ Tablet] 1 tab PO DAILY 06/08/19 Memantine HCl [Namenda] 1 tab PO BID 09/05/19 Pramipexole Di-HCl [Pramipexole Dihydrochloride] 0.125 mg PO TID 10/14/20 Clopidogrel Bisulfate [Plavix*] 75 mg PO DAILY #0 tablet 10/15/20 Hydralazine [Apresoline*] 10 mg PO BID PRN #30 tab 10/15/20 Diet: AHA Activity: Fall precautions Followup: NONE,NONE [Primary Care Provider] - Time spent managing pt's care (in minutes): 34
[2021-06-21 17:01] VITALS: BMI 26.6
[2021-06-21] MEDS: ALBUTEROL 2.5 MG/3 ML NEB SOL NEB PRN (19:09)
[2021-06-21 20:28] VITALS: O2SAT 95
[2021-06-21] MEDS: MIRTAZAPINE 15 MG TAB PO SCH (20:52)
[2021-06-21] MEDS: ATORVASTATIN 20 MG TAB PO SCH (20:53)
[2021-06-22] MEDS: PRAMIPEXOLE 0.25 MG TAB PO SCH ×2 (08:10→14:00)
[2021-06-22] MEDS: MEMANTINE HCL 10 MG TABLET PO SCH (08:10)
[2021-06-22] MEDS: ASPIRIN EC 81 MG TAB PO SCH (08:10)
[2021-06-22] MEDS: CLOPIDOGREL 75 MG TABLET PO SCH (08:10)
[2021-06-22] MEDS: CARBIDOPA/LEVODOPA 25/250 TAB PO SCH ×3 (08:10→16:46)
[2021-06-22] MEDS: ENOXAPARIN 40 MG/0.4 ML SQ SCH (08:11)
--- NOTE | 2021-06-22 09:55 | PN ---
Date of Progress Note: 06/19/2021 Mr. Louis was seen for congestive heart failure, anemia, peripheral arterial disease, history of orth ostatic hypotension, pancreatitis, and parkinsonism. He was admitted with syncope, lethargy, and dem entia. He has a history of mild aortic stenosis, had 1 episode of atrial fibrillation, intolerant to beta-melissa. He received 1 dose of metoprolol and he has been in sinus rhythm since. Echocardiogr am was ordered and the echocardiogram showed an ejection fraction of 52%. He had aortic stenosis zen t was moderate of 1.4 sq cm with some diastolic dysfunction and normal ejection fraction. As stated earlier, he remained in sinus rhythm. His present medications include aspirin, Lipitor, Plavix, hydr alazine, and Sinemet. Again, he is not a candidate for beta blockade. He has sick sinus syndrome wi th tachy-bertrand arrhythmias. He is not a do not resuscitate. If we have to be aggressive down the ro ad with him, we will have to consider a pacemaker. EL/ANNIE Voice ID: [id number] Report ID: [id number]
[2021-06-22 16:26] VITALS: BP 140/58; TEMP 97.9
--- NOTE | 2021-06-22 17:31 | P.PN ---
Subjective Date of Service: 06/21/21 Chief Complaint: fall, syncope, lethargy Nursing staff report patient has been tolerating pured diet and honey thickened liquids. Patient seen sitting up on the bedside commode. He has no complaint today. Physical Examination - Vital Signs Temperature: 97.9 F Blood Pressure: 140/58 Pulse: 63 Respirations: 19 Pulse Ox (%): 95 Assessment And Plan - Plan Physical exam General: Demented. HEENT: Sclerae nonicteric Respiratory: Clear to auscultation bilaterally Cardiovascular: Edema (trace to 1+ b/l lower extremity edema), regular rate/rhythm Gastrointestinal: Soft and benign, Non-distended, No tenderness Neurological: Normal speech today, no focal motor deficit Problem List Syncope Lethargy / Unresponsive A. fib, new onset; resolved Parkinson's Disease with autonomic dysfunction (orthostatic hypotension) Advanced dementia lower extremity edema Mental status is improved and patient is at baseline. MRI negative, seen by neurology, EEG unremarkable He passed bedside swallow, patient tolerating diet. new afib - on 06/17, noted when patient got up to bedside commode, resolved IV lopressor x1 given, 25mg PO given. Patient reportedly had quick pause / bradycardia to 30s for a few seconds Cardiology consulted, recommended digoxin 0.25 IV q6hrs x4 doses total if he goes into another rapid A. fib He has remained in sinus rhythm. Patient is not a candidate for anticoagulation. Code: DNR Dispo: He needs SNF / possible placement health and social care teacher is following. Patient approved for SNF placement.
== END 2021-06-22 16:53 | DRG 884 ==
LOC: ER 09:52 → ERHOLD 14:35 → 3RD-ICU 20:30 → 2ND 06-15 21:05
PROVIDERS: ADMIT Hospitalist; ATTEND Internal Medicine
DX: F03.90 Unspecified dementia, unspecified severity, without behavioral disturbance, psychotic disturbance, mood disturbance, and anxiety (principal); I50.32 Chronic diastolic (congestive) heart failure; R55 Syncope and collapse; I11.0 Hypertensive heart disease with heart failure; I48.0 Paroxysmal atrial fibrillation; G20 Parkinson's disease; K21.9 Gastro-esophageal reflux disease without esophagitis; D64.9 Anemia, unspecified; I73.9 Peripheral vascular disease, unspecified; I95.1 Orthostatic hypotension; E78.5 Hyperlipidemia, unspecified; R60.9 Edema, unspecified; Z79.899 Other long term (current) drug therapy; Z79.82 Long term (current) use of aspirin; Z79.02 Long term (current) use of antithrombotics/antiplatelets; Z91.81 History of falling; Z66 Do not resuscitate; Z20.822 Contact with and (suspected) exposure to COVID-19
CPT/HCPCS: 36415; 51702; 70450; 70544; 70549; 70553; 71045; 71250; 72125; 80048; 80053; 80076; 81003; 82140; 82947; 83735; 83880; 84132; 84484; 85025; 85027; 85610; 86850; 86900; 86901; 87040; 92526; 92610; 93005; 93306; 95819; 97110; 97112; 97116; 97161; 97530; 99285; A9577; J0360; J1650; J2405; J7030; U0003

== ENCOUNTER 2021-07-04 09:20 | Emergency (ER) | payer MEDICARE ==
--- OUTSIDE RECORDS SUMMARY | 2021-07-04 09:23 | XMS REPORT | Continuity of Care Document ---
:[address] [facility] t Address [address] [place] [address] Care Team Providers Name Role Phone ZEKE Attending Clinician Unavailable KAITLIN HAYES Admitting Clinician Unavailable Payers Payer Name Policy Type Policy Number Effective Date Expiration Date S ource Problems This patient has no known problems. Allergies, Adverse Reactions, Alerts Allergy Allergy Status Severity Reaction(s) Onset Inactive Treating Comm ents Source Name Type Date Date Clinician No Known DA Active U [facility] Allerg 07-28 00:00: [address] NO KNOWN Allergy Active [facility] Medications This patient has no known medications. Procedures This patient has no known procedures. Results Test Description Test Time Test Comments Results Result Comments Source TROPONIN-I 2018-07-29 09:26:00 Test Item Value Reference Range Interpretation Comme nts TROPONIN-I (test code = TROPI) < 0.012 NG/ML 0.012-0.033 L Q 6HRS. [id number] 03:54:00 Test Item Value Reference Range Interpretation Comments TROPONIN-I (test code = TROPI) < 0.012 NG/ML 0.012-0.033 L [id number] 21:09:00 Test Item Value Reference Range Interpretation Comments TROPONIN-I (test code = TROPI) < 0.012 NG/ML 0.012-0.033 L COMPREHENSIVE METABOLIC [id number] 17:26:00 Test Item Value Reference Range Interpretation [...] UNITS/L 38-126 N (test code = ALKP) [id number] 17:26:00 Test Item Value Reference Range Interpretation Comments PHOSPHOROUS (test code = PHOS) 3.4 MG/DL 2.5-4.5 N [id number] 17:26:00 Test Item Value Reference Range Interpretation Comments MAGNESIUM (test code = MAG) 2.3 MG/DL 1.6-2.3 N TROPONIN I [id number] 17:09:00 Test Item Value Reference Range Interpretation Comments TROPONIN I RAPID (test code = 0.01 NG/ML 0.00-0.05 N TROPIRAP) CBC W/AUTO [id number] 17:09:00 Test Item Value Reference Range Interpretation [...] K/mm3 0.0-0.1 N NRBC#) - XR CHEST [id number] 16:56:00 Patient Name: CARINA SAMANIEGO Unit No: [id number] EXAMS: CPT CODE: [id number] XR CHEST 1V [id number] EXAMINATION: - XR CHEST 1V. LOCATION: B2. [...] t.SDR.PR7 Orig Print D/T: S: 07/28/2018 (1658) [facility] NAME: CARINA SAMANIEGO [address] PHYS: [place] [address] : 1940 AGE: 78 SEX: M LOC: Z.ERS PHONE #: [phone] EXAM DATE: 07/28/2018 STATUS: PRE ER FAX #: [phone] RADIOLOGY NO: PAGE 1 Signed ReportBLOOD [id number] 11:02:00 Test Item Value Reference Range Interpretation Comments CULTURE (BEAKER) (test No growth in 5 days code = 1095) BLOOD [id number] 11:02:00 Test Item Value Reference Range Interpretation Comments CULTURE (BEAKER) (test No growth in 5 days code = 1095) COMPREHENSIVE METABOLIC [id number] 13:41:00 Test Item Value Reference Range Interpretation [...] S NOT APPLICABLE FOR DIALYSIS PATIEN TS. [id number] 13:24:00 Test Item Value Reference Range Interpretation Comments MAGNESIUM (BEAKER) (test code = 1.9 mg/dL 1.6-2.6 627) [id number] 13:24:00 Test Item Value Reference Range Interpretation Comments LIPASE (BEAKER) (test code = 749) 521 U/L 8-78 H U/S, ABDOMINAL, [id number] 11:30:00Abdomen limited area? Add comment if clarification [...] Benjamin Verified Date/Time: 07/01/2018 11:30:04 Reading Location: [address] Ultrasound Reading Room [id number] 06:07:00 Test Item Value Reference Range Interpretation Comments MAGNESIUM (BEAKER) (test code = 2.1 mg/dL 1.6-2.6 627) BASIC METABOLIC [id number] 06:07:00 Test Item Value Reference Range Interpretation [...] PATIEN TS. CBC W/PLT COUNT & AUTO [id number] 06:04:00 Test Item Value Reference Range Interpretation [...] 0-1 PERCENT (BEAKER) (test code = 2801) [id number] 10:30:00 Test Item Value Reference Range Interpretation Comments MAGNESIUM (BEAKER) (test code = 1.9 mg/dL 1.6-2.6 627) CBC W/PLT COUNT & AUTO [id number] 07:07:00 Test Item Value Reference Range Interpretation [...] (BEAKER) (test code = 2801) BASIC METABOLIC [id number] 06:31:00 Test Item Value Reference Range Interpretation [...] APPLICABLE FOR DIALYSIS PATIEN TS. BASIC METABOLIC [id number] 06:27:00 Test Item Value Reference Range Interpretation [...] ESTIMATED GFR. CBC W/PLT COUNT & AUTO [id number] 05:45:00 Test Item Value Reference Range Interpretation [...] (test code = 2801) CT, BRAIN, WITHOUT [id number] 23:42:00FINAL REPORT CT, BRAIN, WITHOUT CONTRAST CLINICAL [...] MDReport Verified Date/Time: 06/27/2018 23:42:40 Reading Location: [address] Neuro Reading Room URINALYSIS W/ REFLEX URINE [id number] 21:57:00 Test Item Value Reference Range Interpretation [...] = 2795) RAD, CHEST, 1 VIEW, NON [id number] 21:14:00Reason for exam:->LOSS OF CONSCIOUSNESSShould this be performed at the bedside?->YesFINAL REPORT INDICATION: LOSS OF CONSCIOUSNESS COMPARISON: None TECHNIQUE: Single frontal view of the chest. FINDINGS: Lungs and pleura: Clear lungs. No effusion.Heart and mediastinum: Normal heart size. Unremarkable mediastinal contours.Osseous structures: No acute abnormality.Other: None. IMPRESSION: No acute intrathoracic abnormality. Signed: Christina Gutierrez Verified Date/Time: 06/27/2018 21:14:39 Reading Location: [address] Neuro Reading Room [id number] 20:36:00 Test Item Value Reference Range Interpretation Comments MAGNESIUM (BEAKER) (test code = 2.0 mg/dL 1.6-2.6 627) [id number] 20:36:00 Test Item Value Reference Range Interpretation Comments PHOSPHORUS (BEAKER) (test code = 2.9 mg/dL 2.3-4.7 604) TROPONIN [id number] 19:30:00 Test Item Value Reference Range Interpretation [...] 0-100 (test code = 700) BASIC METABOLIC [id number] 19:28:00 Test Item Value Reference Range Interpretation [...] m DATA TO CALCULA TE ESTIMATED GFR. [id number] 19:24:00 Test Item Value Reference Range Interpretation Comments LIPASE (BEAKER) (test code = 749) 229 U/L 8-78 H HEPATIC FUNCTION [id number] 19:24:00 Test Item Value Reference Range Interpretation [...] 6-55 347) CBC W/PLT COUNT & AUTO [id number] 19:05:00 Test Item Value Reference Range Interpretation [...] % 0-1 PERCENT (BEAKER) (test code = 2808)
--- NOTE | 2021-07-04 09:46 | RAD REPORT ---
EXAM DESCRIPTION: CT - Head Brain Wo Cont - 07/04/2021 9:39 am CLINICAL HISTORY: unwitnessed head injury, top of head, on plavix Trauma, head injury COMPARISON: Ct Stroke Brain Wo Cont dated 10/14/2020; Head Brain Wo Cont dated 05/11/2020 TECHNIQUE: All CT scans are performed using dose optimization technique as appropriate and may inclu de automated exposure control or mA/KV adjustment according to patient size. FINDINGS: No intracranial hemorrhage, hydrocephalus or extra-axial fluid collection.Mild generalized brain atrophy.No areas of brain edema or evidence of midline shift. Fluid is present in both mastoid air cells. Paranasal sinuses are clear. The calvarium is intact. IMPRESSION: No acute intracranial abnormality. Bilateral mastoid effusions.
--- NOTE | 2021-07-04 10:05 | EDPHYS ---
Physician Documentation [facility] Name: Sumanth Louis Age: 81 yrs Sex: Male : 1940 Arrival Date: 07/04/2021 Time: 09:21 Bed 20 Private MD: ED Physician Arvin Armendariz HPI: 07/04 09:51 This 81 yrs old Male presents to ER via EMS with complaints of head injury. rn 09:51 The patient presents with an injury. rn 09:52 The patient or guardian reports injury. Context of injury: The problem was sustained at rn home, resulted from a direct blow, furniture. Onset: The symptoms/episode began/occurred just prior to arrival. Associated signs and symptoms: Loss of consciousness: This patient did not experience any loss of consciousness. Pertinent negatives: the patient has not experienced a loss of conciousness, double vision, headache, incontinence, neck pain, seizure. Severity of symptoms: At their worst the symptoms were mild, in the emergency department the symptoms have improved. It is unknown whether or not the patient has had similar symptoms in the past. The patient has not recently seen a physician. Pt brought by EMS from [facility] for head injury, was unwitnessed, either fell or rolled out of bed, hit top of head on edge of drawer/dresser, suffered small skin tear on top of head, and on plavix, so sent here by their physician for CT head. No other injuries.. Historical: - PMHx: 09:45 Anemia; Anxiety; Bilateral degeneration of macula; CHF; Dementia; Essential cb5 Hypertension; Inguinal hernia R; Orthostatic hypotension; osteoarthritis; PAD; Pancreatitis; Parkinsons; Vitamin D3 deficiency; - Immunization history:: Adult Immunizations up to date. - Social history:: Smoking status: unknown. - Family history:: not pertinent. - Hospitalizations: : No recent hospitalization is reported. - History obtained from: EMS, medical records. ROS: 10:01 Constitutional: Negative for fever, chills, and weight loss, Neck: Negative for injury, rn pain, and swelling, Cardiovascular: Negative for chest pain, palpitations, and edema, Respiratory: Negative for shortness of breath, cough, wheezing, and pleuritic chest pain, Abdomen/GI: Negative for abdominal pain, nausea, vomiting, diarrhea, and constipation, Back: Negative for injury and pain, MS/Extremity: Negative for injury and deformity, Neuro: Negative for headache, weakness, numbness, tingling, and seizure. Exam: 10:01 Constitutional: This is a well developed, well nourished patient who is awake, alert, rn slow to respond, but has parkinson's dementia. Head/Face: Normocephalic, small superficial skin tear top of head, no laceration, no depression or signs of skull fracture Eyes: Periorbital areas with no swelling, redness, or edema. Cardiovascular: Regular rate and rhythm. No pulse deficits. Respiratory: No increased work of breathing, no retractions or nasal flaring. Abdomen/GI: Soft, non-tender Skin: Warm, dry MS/ Extremity: Pulses equal, no cyanosis. Neurovascular intact. Stiff extremities but no deformity. Neuro: Awake, alert, slowly moves all 4 extremities, answer yes/no to questions. Vital Signs: 09:21 BP 109 / 63; Pulse 87; Resp 18; Temp 98.4; Pulse Ox 99% ; Weight 68.04 kg; Height 5 ft. cb5 6 in. (167.64 cm); Pain 0/10; 10:12 BP 133 / 60; Pulse 50; Resp 15; Pulse Ox 98% ; bp 12:00 BP 131 / 68; Pulse 55; Resp 16; Temp 98.6; Pulse Ox 98% ; Pain 0/10; cb5 09:21 Body Mass Index 24.21 (68.04 kg, 167.64 cm) cb5 MDM: 09:24 Patient medically screened. rn 10:01 Differential diagnosis: Contusion of Intracranial bleed- Concussion cerebral contusion. rn Data reviewed: vital signs, nurses notes, radiologic studies, CT scan, and as a result, I will discharge patient. Counseling: I had a detailed discussion with the patient and/or guardian regarding: the historical points, exam findings, and any diagnostic results supporting the discharge/admit diagnosis, radiology results, the need for outpatient follow up, to return to the emergency department if symptoms worsen or persist or if there are any questions or concerns that arise at home. Special discussion: Based on the patient's history, exam and DX evaluation, there is no indication for emergent intervention or inpatient [place]. It is understood by the patient/guardian that if the SXs persist or worsen they need to return immediately for re-evaluation. I discussed with the patient/guardian in detail that at this point there is no indication for admission to the hospital. It is understood, however, that if the symptoms persist or worsen the patient needs to return immediately for re-evaluation. 07/04 12:11 Order name: Chem 7 ap3 07/04 09:24 Order name: CT Head Brain wo Cont; Complete Time: 09:51 rn 07/04 09:24 Order name: Wound Care; Complete Time: :53 rn Administered Medications: No medications were administered Disposition Summary: 07/04/21 10:04 Discharge Ordered Location: Home rn Problem: new rn Symptoms: have improved rn Condition: Stable rn Diagnosis - Unspecified injury of head, initial encounter rn Followup: rn - With: Private Physician - When: As needed - Reason: Recheck today's complaints, Re-evaluation by your physician Discharge Instructions: - Discharge Summary Sheet rn - Head Injury, Adult rn Forms: - Medication Reconciliation Form rn - Thank You Letter rn - Antibiotic rn endocrinology - Prescription Opioid Use rn Signatures: Dispatcher [employer] Arvin Odell MD MD rn Boman, Colleen RN RN cb5 Corrections: (The following items were deleted from the chart) 12:11 12:11 BASIC METABOLIC PANEL+C.LAB.BRZ ordered. EDMI EDMS
--- NOTE | 2021-07-04 10:05 | ER ---
Nurse's Notes [facility] Name: Sumanth Louis Age: 81 yrs Sex: Male : 1940 Arrival Date: 07/04/2021 Time: 09:21 Bed 20 Private MD: Diagnosis: Unspecified injury of head, initial encounter Presentation: 07/04 09:21 Chief complaint: Patient states: pt has small contusion to head, no visual bleeding. cb5 Coronavirus screen: Client denies travel out of the [place] in the last 14 days. Ebola Screen: Patient negative for fever greater than or equal to 101.5 degrees Fahrenheit, and additional compatible Ebola Virus Disease symptoms Patient denies exposure to infectious person. Initial Sepsis Screen: Does the patient meet any 2 criteria? No. Patient's initial sepsis screen is negative. Risk Assessment: Do you want to hurt yourself or someone else? Patient reports no desire to harm self or others. 09:21 Method Of Arrival: EMS: [facility] cb5 09:21 Acuity: IRINA 4 cb5 Triage Assessment: 09:21 General: Appears in no apparent distress. comfortable, Behavior is calm, cooperative. cb5 Pain: Denies pain. Historical: - PMHx: 09:45 Anemia; Anxiety; Bilateral degeneration of macula; CHF; Dementia; Essential cb5 Hypertension; Inguinal hernia R; Orthostatic hypotension; osteoarthritis; PAD; Pancreatitis; Parkinsons; Vitamin D3 deficiency; - Immunization history:: Adult Immunizations up to date. - Social history:: Smoking status: unknown. - Family history:: not pertinent. - Hospitalizations: : No recent hospitalization is reported. - History obtained from: EMS, medical records. Screenin:21 Abuse screen: Denies threats or abuse. Denies injuries from another. Nutritional cb5 screening: No deficits noted. Tuberculosis screening: No symptoms or risk factors identified. Fall Risk None identified. Assessment: 09:21 General: Appears comfortable, Behavior is calm, cooperative, quiet. Pain: Denies pain. cb5 Neuro: Level of Consciousness is awake, alert, pt has history of parkinsons. Neuro: Level of Consciousness is pt is verbally non-responsive. Cardiovascular: No deficits noted. Respiratory: No deficits noted. GI: No deficits noted. Derm: Skin with poor turgor has skin tears on skin tear to left elbow, abrasion to head, sophie arms with eccymosis. Musculoskeletal: pt is contracted, mouth remains open. 10:12 Reassessment: PT CLEARED FOR D/C. REPORT TO BRISEYDA FINE RN. TRANSPORT PENDING. bp 10:21 Reassessment: Patient and/or family updated on plan of care and expected duration. Pain cb5 level reassessed. 10:24 Reassessment: TRANSPORT PENDING \R\1 HR. bp 11:53 Reassessment: Patient and/or family updated on plan of care and expected duration. Pain cb5 level reassessed. 12:23 General: [facility] arrived to transport patient back home. Pt awake, alert, cb5 in no distress at this time VSS WNL. Vital Signs: 09:21 BP 109 / 63; Pulse 87; Resp 18; Temp 98.4; Pulse Ox 99% ; Weight 68.04 kg; Height 5 ft. cb5 6 in. (167.64 cm); Pain 0/10; 10:12 BP 133 / 60; Pulse 50; Resp 15; Pulse Ox 98% ; bp 12:00 BP 131 / 68; Pulse 55; Resp 16; Temp 98.6; Pulse Ox 98% ; Pain 0/10; cb5 09:21 Body Mass Index 24.21 (68.04 kg, 167.64 cm) cb5 ED Course: 09:21 Patient arrived in ED. bp 09:21 Arm band placed on left wrist. cb5 09:21 No provider procedures requiring assistance completed. cb5 09:24 Arvin Armendariz MD is Attending Physician. rn 09:33 Holly Barnes, SOCORRO is Primary Nurse. cb5 09:38 Triage completed. cb5 09:39 CT Head Brain wo Cont In Process Unspecified. EDMS 09:46 Patient has correct armband on for positive identification. Bed in low position. Call cb5 light in reach. Side rails up X2. 09:53 Wound care: to abrasion, located on scalp and left elbow was cleaned with Hibiclens, bp dressed with Neosporin. 12:24 Patient did not have IV access during this emergency room visit. cb5 Administered Medications: No medications were administered Outcome: 10:04 Discharge ordered by . rn 12:24 Discharged to correction. cb5 12:24 Condition: stable 12:24 Discharge instructions given to correction. 12:25 Patient left the ED. cb5 Signatures: Dispatcher [employer] Arvin Odell MD MD rn Uziel Ochoa RN RN Holly Hanson, RN RN cb5 Corrections: (The following items were deleted from the chart) 10:24 10:12 Reassessment: PT CLEARED FOR D/C. REPORT TO BRISEYDA ROSEN RN. TRANSPORT bp PENDING bp
[2021-07-04 12:33] VITALS: O2SAT 98
[2021-07-04 12:35] VITALS: BP 131/68; TEMP 98.6
== END 2021-07-04 12:25 | disposition home or self-care (01) ==
LOC: ER 09:20
DX: S09.90XA Unspecified injury of head, initial encounter (principal); W06.XXXA Fall from bed, initial encounter; I10 Essential (primary) hypertension; G20 Parkinson's disease; F02.80 Dementia in other diseases classified elsewhere, unspecified severity, without behavioral disturbance, psychotic disturbance, mood disturbance, and anxiety; Z79.01 Long term (current) use of anticoagulants
CPT/HCPCS: 70450; 99283

== ENCOUNTER 2021-08-14 12:24 | Emergency (ER) | payer MEDICARE, OTHER ==
--- OUTSIDE RECORDS SUMMARY | 2021-08-14 12:33 | XMS REPORT | Continuity of Care Document ---
:1940 Author Organization [facility] t Address [address] [place] [address] Care Team Providers Name Role Phone ZEKE Attending Clinician Unavailable KAITLIN HAYES Admitting Clinician Unavailable Payers Payer Name Policy Type Policy Number Effective Date Expiration Date S ource Problems This patient has no known problems. Allergies, Adverse Reactions, Alerts Allergy Allergy Status Severity Reaction(s) Onset Inactive Treating Comm ents Source Name Type Date Date Clinician No Known DA Active U [facility] Allerg 07-28 00:00: [address] NO KNOWN Allergy Active [facility] Medications This patient has no known medications. Procedures This patient has no known procedures. Results Test Description Test Time Test Comments Results Result Comments Source TROPONIN-I 2018-07-29 09:26:00 Test Item Value Reference Range Interpretation Comme nts TROPONIN-I (test code = TROPI) < 0.012 NG/ML 0.012-0.033 L Q 6HRS. [id number] 03:54:00 Test Item Value Reference Range Interpretation Comments TROPONIN-I (test code = TROPI) < 0.012 NG/ML 0.012-0.033 L [id number] 21:09:00 Test Item Value Reference Range Interpretation Comments TROPONIN-I (test code = TROPI) < 0.012 NG/ML 0.012-0.033 L COMPREHENSIVE METABOLIC [id number] 17:26:00 Test Item Value Reference Range Interpretation [...] UNITS/L 38-126 N (test code = ALKP) [id number] 17:26:00 Test Item Value Reference Range Interpretation Comments PHOSPHOROUS (test code = PHOS) 3.4 MG/DL 2.5-4.5 N [id number] 17:26:00 Test Item Value Reference Range Interpretation Comments MAGNESIUM (test code = MAG) 2.3 MG/DL 1.6-2.3 N TROPONIN I [id number] 17:09:00 Test Item Value Reference Range Interpretation Comments TROPONIN I RAPID (test code = 0.01 NG/ML 0.00-0.05 N TROPIRAP) CBC W/AUTO [id number] 17:09:00 Test Item Value Reference Range Interpretation [...] K/mm3 0.0-0.1 N NRBC#) - XR CHEST [id number] 16:56:00 Patient Name: CARINA SAMANIEGO Unit No: [id number] EXAMS: CPT CODE: [id number] XR CHEST 1V [id number] EXAMINATION: - XR CHEST 1V. LOCATION: B2. [...] t.SDR.PR7 Orig Print D/T: S: 07/28/2018 (1658) [facility] NAME: CARINA SAMANIEGO [id number] PHYS: [place] [address] : 1940 AGE: 78 SEX: M LOC: Z.ERS PHONE #: [phone] EXAM DATE: 07/28/2018 STATUS: PRE ER FAX #: [phone] RADIOLOGY NO: PAGE 1 Signed ReportBLOOD [id number] 11:02:00 Test Item Value Reference Range Interpretation Comments CULTURE (BEAKER) (test No growth in 5 days code = 1095) BLOOD [id number] 11:02:00 Test Item Value Reference Range Interpretation Comments CULTURE (BEAKER) (test No growth in 5 days code = 1095) COMPREHENSIVE METABOLIC [id number] 13:41:00 Test Item Value Reference Range Interpretation [...] S NOT APPLICABLE FOR DIALYSIS PATIEN TS. [id number] 13:24:00 Test Item Value Reference Range Interpretation Comments MAGNESIUM (BEAKER) (test code = 1.9 mg/dL 1.6-2.6 627) [id number] 13:24:00 Test Item Value Reference Range Interpretation Comments LIPASE (BEAKER) (test code = 749) 521 U/L 8-78 H U/S, ABDOMINAL, [id number] 11:30:00Abdomen limited area? Add comment if clarification [...] Benjamineport Verified Date/Time: 07/01/2018 11:30:04 Reading Location: [facility] [id number] Ultrasound Reading Room [id number] 06:07:00 Test Item Value Reference Range Interpretation Comments MAGNESIUM (BEAKER) (test code = 2.1 mg/dL 1.6-2.6 627) BASIC METABOLIC [id number] 06:07:00 Test Item Value Reference Range Interpretation [...] PATIEN TS. CBC W/PLT COUNT & AUTO [id number] 06:04:00 Test Item Value Reference Range Interpretation [...] 0-1 PERCENT (BEAKER) (test code = 2801) [id number] 10:30:00 Test Item Value Reference Range Interpretation Comments MAGNESIUM (BEAKER) (test code = 1.9 mg/dL 1.6-2.6 627) CBC W/PLT COUNT & AUTO [id number] 07:07:00 Test Item Value Reference Range Interpretation [...] (BEAKER) (test code = 2801) BASIC METABOLIC [id number] 06:31:00 Test Item Value Reference Range Interpretation [...] APPLICABLE FOR DIALYSIS PATIEN TS. BASIC METABOLIC [id number] 06:27:00 Test Item Value Reference Range Interpretation [...] ESTIMATED GFR. CBC W/PLT COUNT & AUTO [id number] 05:45:00 Test Item Value Reference Range Interpretation [...] (test code = 2801) CT, BRAIN, WITHOUT [id number] 23:42:00FINAL REPORT CT, BRAIN, WITHOUT CONTRAST CLINICAL [...] MDReport Verified Date/Time: 06/27/2018 23:42:40 Reading Location: [address] Neuro Reading Room URINALYSIS W/ REFLEX URINE [id number] 21:57:00 Test Item Value Reference Range Interpretation [...] = 2795) RAD, CHEST, 1 VIEW, NON [id number] 21:14:00Reason for exam:->LOSS OF CONSCIOUSNESSShould this be performed at the bedside?->YesFINAL REPORT INDICATION: LOSS OF CONSCIOUSNESS COMPARISON: None TECHNIQUE: Single frontal view of the chest. FINDINGS: Lungs and pleura: Clear lungs. No effusion.Heart and mediastinum: Normal heart size. Unremarkable mediastinal contours.Osseous structures: No acute abnormality.Other: None. IMPRESSION: No acute intrathoracic abnormality. Signed: Christina Gutierrez Verified Date/Time: 06/27/2018 21:14:39 Reading Location: [address] Neuro Reading Room [id number] 20:36:00 Test Item Value Reference Range Interpretation Comments MAGNESIUM (BEAKER) (test code = 2.0 mg/dL 1.6-2.6 627) [id number] 20:36:00 Test Item Value Reference Range Interpretation Comments PHOSPHORUS (BEAKER) (test code = 2.9 mg/dL 2.3-4.7 604) TROPONIN [id number] 19:30:00 Test Item Value Reference Range Interpretation [...] 0-100 (test code = 700) BASIC METABOLIC [id number] 19:28:00 Test Item Value Reference Range Interpretation [...] m DATA TO CALCULA TE ESTIMATED GFR. [id number] 19:24:00 Test Item Value Reference Range Interpretation Comments LIPASE (BEAKER) (test code = 749) 229 U/L 8-78 H HEPATIC FUNCTION [id number] 19:24:00 Test Item Value Reference Range Interpretation [...] 6-55 347) CBC W/PLT COUNT & AUTO [id number] 19:05:00 Test Item Value Reference Range Interpretation [...] % 0-1 PERCENT (BEAKER) (test code = 280)
--- NOTE | 2021-08-14 13:38 | RAD REPORT ---
EXAM DESCRIPTION: CT - Head Brain Wo Cont - 08/14/2021 1:31 pm CLINICAL HISTORY: Mental status change, unknown cause Headache, drowsiness COMPARISON: Head Brain Wo Cont dated 07/04/2021; Ct Stroke Brain Wo Cont dated 10/14/2020 TECHNIQUE: All CT scans are performed using dose optimization technique as appropriate and may inclu de automated exposure control or mA/KV adjustment according to patient size. FINDINGS: No intracranial hemorrhage, hydrocephalus or extra-axial fluid collection.Mild generalized brain atrophy is present with mild periventricular and deep white matter chronic microvascular ische andrea changes.No areas of brain edema or evidence of midline shift. Bilateral mastoid effusion. The calvarium is intact. IMPRESSION: No acute intracranial abnormality. Bilateral mastoid effusion.
[2021-08-14] MEDS ORDERED: NA CHLORIDE 0.9% 500 ML ONE (14:02)
--- NOTE | 2021-08-14 14:05 | RAD REPORT ---
EXAM DESCRIPTION: RAD - Chest Single View - 08/14/2021 1:52 pm CLINICAL HISTORY: AMS Chest pain. COMPARISON: Chest Single View dated 06/14/2021; Chest Single View dated 10/14/2020; Chest Single View dated 06/07/2019; Chest Single View dated 03/31/2019 FINDINGS: Portable technique limits examination quality. The lungs are grossly clear. The heart is upper limit normal in size. No displaced fractures. IMPRESSION: No acute intrathoracic process suspected.
[2021-08-14 14:19] LABS: Absolute Lymphocytes (CBC) 0.5 K/uL (0.7-4.9); Hematocrit 33.1 % (39.6-49.0); Lymphocytes % 17.9 % (15.3-44.8); MPV 8.5 fL (7.6-11.3); RBC Red Blood Cell Count 3.66 M/uL (4.33-5.43)
[2021-08-14 14:35] LABS: Potassium 4.2 mmol/L (3.5-5.1); Troponin High Sensitivity 4.2 pg/mL (<58.9)
[2021-08-14 14:40] LABS: Urine Blood Negative (Negative); Urine Glucose Negative (Negative); Urine Protein 1+ (Negative)
[2021-08-14 15:01] LABS: Urine Appearance CLEAR (Clear); Urine Bilirubin NEGATIVE (Negative); Urine Blood NEGATIVE (Negative); Urine Color DK YELLOW (Yellow); Urine Glucose NEGATIVE (Negative); Urine Protein 1+ (Negative); Urine Specific Gravity 1.025 (1.005-1.030); Urine pH 5.5 (5.0-7.0)
[2021-08-14 15:02] LABS: Urine Microscopic Reflex ORDER UMIC
[2021-08-14 15:12] LABS: Urine Bacteria <20 /HPF (NONE SEEN); Urine Mucus 1+ /HPF (NONE SEEN); Urine RBC <5 /HPF (NONE SEEN)
--- NOTE | 2021-08-14 15:55 | ER ---
Nurse's Notes [facility] Name: Sumanth Louis Age: 81 yrs Sex: Male : 1940 Arrival Date: 08/14/2021 Time: 12:47 Bed 9 Private MD: Diagnosis: Unspecified dementia with behavioral disturbance Presentation: 08/14 13:07 Chief complaint: Patient states: Acting confused and combative before passing out just ll1 IMM[employer]RATION [place]. Daughter in law states this has happened in the past. He usually doesn't get combative though. Coronavirus screen: Vaccine status: Patient reports receiving the 2nd dose of the covid vaccine. Client denies travel out of the [place] in the last 14 days. At this time, the client does not indicate any symptoms associated with coronavirus-19. Ebola Screen: Patient denies travel to an Ebola-affected area in the 21 days before illness onset. Initial Sepsis Screen: Does the patient meet any 2 criteria? No. Patient's initial sepsis screen is negative. Does the patient have a suspected source of infection? No. Patient's initial sepsis screen is negative. Risk Assessment: Do you want to hurt yourself or someone else? Patient reports no desire to harm self or others. Onset of symptoms was August 14, 2021. 13:07 Method Of Arrival: EMS ll1 13:07 Acuity: IRINA 2 ll1 Triage Assessment: 13:10 General: Appears in no apparent distress. Behavior is unresponsive. Pain: Denies pain. ll1 Neuro: Reports unresponsive. Cardiovascular: No deficits noted. Respiratory: No deficits noted. Historical: - Allergies: 13:09 No Known Allergies; ll1 - PMHx: 13:09 Anxiety; Bilateral degeneration of macula; CHF; Dementia; Anemia; Essential ll1 Hypertension; Inguinal hernia R; Orthostatic hypotension; osteoarthritis; PAD; Pancreatitis; Parkinsons; Vitamin D3 deficiency; - PSHx: 13:09 Unable to Obtain; ll1 - Immunization history:: Client reports receiving the 2nd dose of the Covid vaccine. - Social history:: Smoking status: Patient denies any tobacco usage or history of. Screenin:11 Abuse screen: Denies threats or abuse. Nutritional screening: No deficits noted. ll1 Tuberculosis screening: No symptoms or risk factors identified. Fall Risk Secondary diagnosis (15 points) dementia, IV access (20 points). Gait- Impaired (20 pts.). Mental Status- Overestimates/Forgets Limitations (15 pts.). Total Han Fall Scale indicates High Risk Score (45 or more points). Fall prevention measures have been instituted. Side Rails Up X 2 Placed Close to Nursing Station Frequent Obs/Assessments Occuring Family Present and informed to notify staff if the need to leave the bedside As available patient and family educated on Fall Prevention Program and Strategies. Assessment: 14:10 Reassessment: No changes from previously documented assessment. Patient and/or family ll1 updated on plan of care and expected duration. Pain level reassessed. Patient is alert, oriented x 3, equal unlabored respirations, skin warm/dry/pink. 15:10 Reassessment: No changes from previously documented assessment. Patient and/or family ll1 updated on plan of care and expected duration. Pain level reassessed. Patient is alert, oriented x 3, equal unlabored respirations, skin warm/dry/pink. 16:10 Reassessment: No changes from previously documented assessment. Patient and/or family ll1 updated on plan of care and expected duration. Pain level reassessed. Patient is alert, oriented x 3, equal unlabored respirations, skin warm/dry/pink. 16:44 Reassessment: No changes from previously documented assessment. Patient and/or family ll1 updated on plan of care and expected duration. Pain level reassessed. Patient is alert, oriented x 3, equal unlabored respirations, skin warm/dry/pink. 16:52 Neuro: Level of Consciousness is awake, alert, obeys commands, Oriented to person. ll1 Cardiovascular: No deficits noted. Rhythm is regular. Vital Signs: 12:59 BP 117 / 58; Pulse 63; Resp 14; Temp 97.3; Pulse Ox 100% ; Weight 47.63 kg; Height 5 mb7 ft. 4 in. (162.56 cm); 13:07 BP 95 / 78; Pulse 62; Resp 14; Temp 97.6; Pulse Ox 100% on R/A; Weight 48.08 kg; Pain ll1 0/10; 16:09 BP 146 / 69; Pulse 71; Resp 15; Pulse Ox 100% on R/A; Pain 0/10; ll1 13:07 Body Mass Index 18.19 (48.08 kg, 162.56 cm) ll1 ED Course: 12:47 Patient arrived in ED. mr 12:56 Paul Bui DO is Attending Physician. ms3 12:57 Arm band placed on Patient placed in an exam room, on a stretcher. ll1 13:07 Chadwick Dior, RN is Primary Nurse. ll1 13:09 Triage completed. ll1 13:10 Maintain EMS IV. Dressing intact. Good blood return noted. Site clean \T\ dry. Gauge \T\ ll 1 site: 20 G R AC. 13:33 CT Head Brain wo Cont In Process Unspecified. EDMS 13:55 XRAY Chest (1 view) In Process Unspecified. EDMS 14:30 EKG done, by ED staff, reviewed by Paul Bui DO. saravanan 16:09 IV discontinued, intact, bleeding controlled, No redness/swelling at site. Pressure ll1 dressing applied. 16:11 Patient has correct armband on for positive identification. Bed in low position. Call ll1 light in reach. Side rails up X 1. Pulse ox on. NIBP on. 16:44 No provider procedures requiring assistance completed. ll1 Administered Medications: 14:08 Drug: NS 0.9% 500 ml Route: IV; Rate: bolus; Site: right antecubital; ll1 16:13 Follow up: Response: No adverse reaction; IV Status: Completed infusion; IV Intake: ll1 500ml Point of Care Testin:46 n/a ll1 Ranges: Intake: 16:13 IV: 500ml; Total: 500ml. ll1 Outcome: 15:54 Discharge ordered by MD. ms3 16:52 Patient left the ED. ll1 16:52 Discharged to home ambulatory. ll1 16:52 Condition: stable 16:52 Discharge instructions given to patient, Instructed on discharge instructions, follow up and referral plans. Demonstrated understanding of instructions, follow-up care. 16:59 Patient left the ED. 1 Signatures: Dispatcher [employer] Elsie Lugo mr Chadwick Dior RN RN ll1 Paul Bui DO DO msAvila RaminElsie floyd mb7
--- NOTE | 2021-08-14 15:55 | EDPHYS ---
Physician Documentation [facility] Name: Sumanth Louis Age: 81 yrs Sex: Male : 1940 Arrival Date: 08/14/2021 Time: 12:47 Bed 9 Private MD: ED Physician Paul Bui HPI: 08/14 15:54 This 81 yrs old Male presents to ER via EMS with complaints of Syncope. ms3 15:55 Onset: The symptoms/episode began/occurred acutely, today. Possible causes: unknown. ms3 Associated signs and symptoms: The patient has no apparent associated signs or symptoms. Current symptoms: In the emergency department the patient's symptoms are unchanged from the initial presentation. Patient's baseline: The patient has a previous history of Dementia, Unknown. 81-year-old male with past medical history of orthostatic hypotension, protein calorie malnutrition, vitamin D deficiency, chronic systolic heart failure, peripheral vascular disease, muscle weakness, dysphagia, lack of coordination, speech disturbances, gastroesophageal reflux disease, hyperlipidemia, dementia, Parkinson's, hypertensive heart disease presents via [facility] for altered mental status. Per EMS patient was trying to hit snf staff and this was not characteristic of patient. Unable to obtain review of systems secondary to altered mental status. Historical: - Allergies: 13:09 No Known Allergies; ll1 - PMHx: 13:09 Anxiety; Bilateral degeneration of macula; CHF; Dementia; Anemia; Essential ll1 Hypertension; Inguinal hernia R; Orthostatic hypotension; osteoarthritis; PAD; Pancreatitis; Parkinsons; Vitamin D3 deficiency; - PSHx: 13:09 Unable to Obtain; ll1 - Immunization history:: Client reports receiving the 2nd dose of the Covid vaccine. - Social history:: Smoking status: Patient denies any tobacco usage or history of. ROS: 15:55 Unable to obtain ROS due to baseline dementia. ms3 Exam: 14:26 ECG was reviewed by the Attending Physician. ms3 15:55 Head/Face: Normocephalic, atraumatic. Neck: Trachea midline, no cervical ms3 lymphadenopathy. Supple, full range of motion without nuchal rigidity, or vertebral point tenderness. No Meningismus. Chest/axilla: Normal chest wall appearance and motion. Nontender with no deformity. Cardiovascular: Regular rate and rhythm with a normal S1 and S2. No gallops, murmurs, or rubs. Normal PMI, no JVD. No pulse deficits. Respiratory: Lungs have equal breath sounds bilaterally, clear to auscultation and percussion. No rales, rhonchi or wheezes noted. No increased work of breathing, no retractions or nasal flaring. Abdomen/GI: Soft, non-tender, with normal bowel sounds. No distension or tympany. No guarding or rebound. No evidence of tenderness throughout. Psych: Awake, alert, with orientation to person, place and time. Behavior, mood, and affect are within normal limits. 15:55 Constitutional: The patient appears Underweight 15:55 Head/face: 15:55 ENT: Dry mucous membranes. Vital Signs: 12:59 BP 117 / 58; Pulse 63; Resp 14; Temp 97.3; Pulse Ox 100% ; Weight 47.63 kg; Height 5 mb7 ft. 4 in. (162.56 cm); 13:07 BP 95 / 78; Pulse 62; Resp 14; Temp 97.6; Pulse Ox 100% on R/A; Weight 48.08 kg; Pain ll1 0/10; 16:09 BP 146 / 69; Pulse 71; Resp 15; Pulse Ox 100% on R/A; Pain 0/10; ll1 13:07 Body Mass Index 18.19 (48.08 kg, 162.56 cm) ll1 MDM: 12:56 Patient medically screened. ms3 15:55 Differential Diagnosis: pneumonia, UTI, volume depletion. Data reviewed: vital signs, ms3 nurses notes, lab test result(s), EKG, radiologic studies. Counseling: I had a detailed discussion with the patient and/or guardian regarding: the historical points, exam findings, and any diagnostic results supporting the discharge/admit diagnosis, lab results, radiology results, the need for outpatient follow up, to return to the emergency department if symptoms worsen or persist or if there are any questions or concerns that arise at home. ED course: Discussed x-ray and labs with patient's [id number] and daughter. They agree with discharge to nursing facility. They state they will contact hospice on arriving back to facility. On reevaluation patient mental status improved, no apparent distress, nontoxic-appearing. All patient's family's questions answered. Return precautions discussed include worsening symptoms, or any other concerns.. 04/18 13:16 Order name: Basic Metabolic Panel; Complete Time: 15:16 ms3 18 13:16 Order name: CBC with Diff; Complete Time: 16:49 ms3 08/14 13:16 Order name: Troponin HS; Complete Time: 15:16 ms3 08/14 13:16 Order name: Urinalysis; Complete Time: 15:16 ms3 08/14 14:40 Order name: Urine Dipstick-Ancillary; Complete Time: 15:16 EDMS 08/14 15:05 Order name: Urine Microscopic Only; Complete Time: 15:16 EDMS 08/14 13:16 Order name: XRAY Chest (1 view); Complete Time: 14:34 ms3 08/14 13:16 Order name: EKG; Complete Time: 13:16 ms3 08/14 13:16 Order name: Cardiac monitoring; Complete Time: 14:37 ms3 08/14 13:16 Order name: EKG - Nurse/Tech; Complete Time: 14:30 ms3 08/14 13:16 Order name: CT Head Brain wo Cont; Complete Time: 14:34 ms3 08/14 16:34 Order name: Manual Differential; Complete Time: 16:49 EDMS 18 16:34 Order name: CBC Smear Scan; Complete Time: 16:49 EDMS 08/14 13:16 Order name: IV Saline Lock; Complete Time: 13:42 ms3 08/14 13:16 Order name: Labs collected and sent; Complete Time: 13:42 ms3 08/14 13:16 Order name: O2 Per Protocol; Complete Time: 13:42 ms3 08/14 13:16 Order name: O2 Sat Monitoring; Complete Time: 13:42 ms3 08/14 13:16 Order name: Urine Dipstick-Ancillary (obtain specimen); Complete Time: 14:37 ms3 EC:26 Rate is 61 beats/min. Rhythm is regular. QRS [place] is Normal. Clinical impression: NSR ms3 w/ Non-specific ST/T Changes. Interpreted by me. Administered Medications: 14:08 Drug: NS 0.9% 500 ml Route: IV; Rate: bolus; Site: right antecubital; ll1 16:13 Follow up: Response: No adverse reaction; IV Status: Completed infusion; IV Intake: ll1 500ml Point of Care Testin:46 n/a ll1 Ranges: Critical Glucose Levels:Adult <50 mg/dl or >400 mg/dl <40 mg/dl or >180 mg/dl Disposition Summary: 08/14/21 15:54 Discharge Ordered Location: Home ms3 Problem: new ms3 Symptoms: are unchanged ms3 Condition: Stable ms3 Diagnosis - Unspecified dementia with behavioral disturbance ms3 Followup: ms3 - With: Private Physician - When: 1 - 2 days - Reason: Re-evaluation by your physician Discharge Instructions: - Discharge Summary Sheet ms3 - Dementia ms3 Forms: - Medication Reconciliation Form ms3 - Thank You Letter ms3 - Antibiotic Education ms3 - Prescription Opioid Use ms3 Signatures: Dispatcher [employer] Chadwick Caldera RN RN ll1 Paul Bui DO DO ms3
[2021-08-14 16:34] LABS: Blood Morphology Comment NOT SEEN (NOT SEEN); Platelet Estimate ADEQ; White Blood Cell Scan DIFF (OK)
[2021-08-14 19:54] VITALS: O2SAT 100
[2021-08-14 19:56] VITALS: TEMP 97.6
[2021-08-14 19:57] VITALS: BP 146/69
--- NOTE | 2021-08-15 09:00 | EKG ---
Test Date: 2021-08-14 Test Time: 14:26:36 Neighborhood Worker: MB MEASUREMENT RESULTS: Intervals: Rate: 60 [place]: 154 QRSD: 90 QT: 480 QTc: 480 [place]: P: 94 OH: 154 QRS: 37 T: 70 INTERPRETIVE STATEMENTS: Normal sinus rhythm Prolonged QT Abnormal ECG Compared to ECG 06/17/2021 09:40:39 Prolonged QT interval now present Atrial fibrillation no longer present ST (T wave) deviation no longer present Electronically Signed On 08-15-21 08:58:16 CDT by Franco Preciado
== END 2021-08-14 16:59 | disposition home or self-care (01) ==
LOC: ER 12:24
DX: G20 Parkinson's disease (principal); F02.80 Dementia in other diseases classified elsewhere, unspecified severity, without behavioral disturbance, psychotic disturbance, mood disturbance, and anxiety; I10 Essential (primary) hypertension; I50.9 Heart failure, unspecified; F41.9 Anxiety disorder, unspecified
CPT/HCPCS: 96361; 93005; 85025; 80048; 36415; 84484; 70450; 71045; 96360; 99284; J7040; 81003; 81015

== ENCOUNTER 2022-03-09 09:53 | Inpatient (IN) | payer OTHER ==
--- OUTSIDE RECORDS SUMMARY | 2022-03-09 09:56 | XMS REPORT | Continuity of Care Document ---
:[address] [facility] t Address [address] [place] [address] Care Team Providers Name Role Phone Rafa Barnes Primary Care Physician GHULAM ALANIS Attending Clinician Unavailable MITZY HAYES Admitting Clinician Unavailable Payers Payer Name Policy Type Policy Number Effective Date Expiration Date S ource Problems Condition Condition Condition Status Onset Resolution Last Treating Co mments Source Name Details Category Date Date Treatment Clinician Date Syncope, Syncope, Disease Active [facility] d syncope d syncope 00:00: [facility] type type 00 Center Allergies, Adverse Reactions, Alerts Allergy Allergy Status Severity Reaction(s) Onset Inactive Treating Comm ents Source Name Type Date Date Clinician No Known DA Active [facility] 4 [facility] 00:00: [address] NO KNOWN Allergy Active [facility] Social History Social Habit Start Date Stop Date Quantity Comments Source History SDOH [facility] St[facility] History SDOH [facility] Alcohol Binge Medical [facility] History SDOH [facility] Alcohol Comment Medical C enter History SDOH 2018-06-28 2018-06-[address] [facility] Alcohol Frequency 00:00:00 00:00:00 [facility] Tobacco use and 2018-06-27 2018-06-[address] [facility] exposure 00:00:00 00:00:00 [facility] Center Alcohol intake 2018-06-27 2018-06-[address] [facility] 00:00:00 00:00:00 non-drinker of Medical Ce nter alcohol (finding) Sex Assigned At [address] [facility] 00:00:00 [facility]:00 [facility] Smoking Status Start Date Stop Date Source Never sm[facility] Medications Ordered Filled Start Stop Current Ordering Indication Dosage Frequency Signature Comments Components Source Medication Medication Date Date Medication? Clinician (SIG) Name Name aspirin 81 2018- Yes 81mg QD Take [address] [facility] EC 3-05 by mouth [facility] tablet 16:29: daily. Medical [address] [place] [address] atorvastati Yes 20mg QD Take [address] n (LIPITOR) 3-05 by mouth Luke s 20 MG 16:29: daily. Medical tablet [address] [place] carbidopa-l Yes 1{tbl} [id number] Take [address] evodopa 3-05 [id number] tablet by Sammy marti (SINEMET) 16:29: 3D mouth 3 Medic al 25-250 mg 26 (three) Center per tablet times daily. donepezil Yes 5mg QD Take [address] (ARICEPT) 5 3-05 by mouth Luke s MG tablet 16:29: nightly. Medi libby 26 Center fluticasone Yes 1{spray QD [address] (FLONASE) 3-05 } Nasal [facility] 50 16:29: route Medical mcg/actuati 26 daily. Center on nasal spray multivitami 2018- Yes 1{capsu QD Take [address] n capsule 3-05 le} capsule by Luke s 16:29: mouth Medical 26 daily. Center Procedures This patient has no known procedures. Results Test Description Test Time Test Comments Results Result Comments Source TROPONIN-I 2018-07-29 09:26:00 Test Item Value Reference Range Interpretation Comme nts TROPONIN-I (test code = TROPI) < 0.012 NG/ML 0.012-0.033 L Q 6HRS. [id number] 03:54:00 Test Item Value Reference Range Interpretation Comments TROPONIN-I (test code = TROPI) < 0.012 NG/ML 0.012-0.033 L [id number] 21:09:00 Test Item Value Reference Range Interpretation Comments TROPONIN-I (test code = TROPI) < 0.012 NG/ML 0.012-0.033 L COMPREHENSIVE METABOLIC [id number] 17:26:00 Test Item Value Reference Range Interpretation [...] UNITS/L 38-126 N (test code = ALKP) [id number] 17:26:00 Test Item Value Reference Range Interpretation Comments PHOSPHOROUS (test code = PHOS) 3.4 MG/DL 2.5-4.5 N [id number] 17:26:00 Test Item Value Reference Range Interpretation Comments MAGNESIUM (test code = MAG) 2.3 MG/DL 1.6-2.3 N TROPONIN I [id number] 17:09:00 Test Item Value Reference Range Interpretation Comments TROPONIN I RAPID (test code = 0.01 NG/ML 0.00-0.05 N TROPIRAP) CBC W/AUTO [id number] 17:09:00 Test Item Value Reference Range Interpretation [...] K/mm3 0.0-0.1 N NRBC#) - XR CHEST [id number] 16:56:00 Patient Name: CARINA LOUIS Unit No: [id number] EXAMS: CPT CODE: [id number] XR CHEST 1V 68790 EXAMINATION: - XR CHEST 1V. LOCATION: B2. HISTORY: Chest Pain. COMPARISON: None. TECHNIQUE: Single AP view of the chest was obtained. FINDINGS: The heart is normal in size. Calcifications are seen at the aortic arch. The lungs are clear. No acute osseous abnormality is identified. IMPRESSION: No acute cardiopulmonary abnormality. at 1656 Reported and signed by: Isabella Lim MD CC: Vic Humphries MD Technologist: Carolina Edwards, RT(R) TranscrptDate/Tm/Trnsp: 07/28/2018 (7641) t.SDR.PR7 Orig Print D/T: S: 07/28/2018 (0838) [facility] NAME: CARINA LOUIS [id number] PHYS: [place] [address] : 1940 AGE: 78 SEX: M LOC: Z.ERS PHONE #: [phone] EXAM DATE: 07/28/2018 STATUS: PRE ER FAX #: [phone] RADIOLOGY NO: PAGE 1 Signed ReportBLOOD [id number] 11:02:00 Test Item Value Reference Range Interpretation Comments CULTURE (BEAKER) (test No growth in 5 days code = 1095) BLOOD [id number] 11:02:00 Test Item Value Reference Range Interpretation Comments CULTURE (BEAKER) (test No growth in 5 days code = 1095) COMPREHENSIVE METABOLIC [id number] 13:41:00 Test Item Value Reference Range Interpretation [...] S NOT APPLICABLE FOR DIALYSIS PATIEN TS. [id number] 13:24:00 Test Item Value Reference Range Interpretation Comments MAGNESIUM (BEAKER) (test code = 1.9 mg/dL 1.6-2.6 627) [id number] 13:24:00 Test Item Value Reference Range Interpretation Comments LIPASE (BEAKER) (test code = 749) 521 U/L 8-78 H U/S, ABDOMINAL, [id number] 11:30:00Abdomen limited area? Add comment if clarification is needed.->Gall BladderReason for exam:->painShould this be performed at the bedside?->YesFINAL REPORT This examination was made available for my dictation on 07/01/2018 at 11:24 AM. TECHNIQUE: Grayscale ultrasound of the right abdomen. INDICATION: pain. COMPARISON: None.FINDINGS: MIDLINE VASCULATURE: The visualized inferior vena cava is patent. Portal vein is patent. The maximum visualized aortic diameter is 2.2 cm. LIVER: Smooth liver contour. No focal lesions. The main portal vein measures 1.1 cm. BILIARY:Gallbladder: There is a conglomerate of echogenic material which appears in different positions on supine and left lateral decubitus films. However, there is onefocus which did not between supine and left lateral decubitus films which measures up to 5 mm. Thesedo not shadow but are most likely nonshadowing [...] MDReport Verified Date/Time: 07/01/2018 11:30:04 Reading Location: [place] [address]J Ultrasound Reading Room [id number] 06:07:00 Test Item Value Reference Range Interpretation Comments MAGNESIUM (BEAKER) (test code = 2.1 mg/dL 1.6-2.6 627) BASIC METABOLIC [id number] 06:07:00 Test Item Value Reference Range Interpretation [...] PATIEN TS. CBC W/PLT COUNT & AUTO [id number] 06:04:00 Test Item Value Reference Range Interpretation [...] 0-1 PERCENT (BEAKER) (test code = 2801) [id number] 10:30:00 Test Item Value Reference Range Interpretation Comments MAGNESIUM (BEAKER) (test code = 1.9 mg/dL 1.6-2.6 627) CBC W/PLT COUNT & AUTO [id number] 07:07:00 Test Item Value Reference Range Interpretation [...] (BEAKER) (test code = 2801) BASIC METABOLIC [id number] 06:31:00 Test Item Value Reference Range Interpretation [...] APPLICABLE FOR DIALYSIS PATIEN TS. BASIC METABOLIC [id number] 06:27:00 Test Item Value Reference Range Interpretation [...] ESTIMATED GFR. CBC W/PLT COUNT & AUTO [id number] 05:45:00 Test Item Value Reference Range Interpretation [...] (test code = 2801) CT, BRAIN, WITHOUT [id number] 23:42:00FINAL REPORT CT, BRAIN, WITHOUT CONTRAST CLINICAL INDICATION: Syncope/fainting COMPARISON: None TECHNIQUE: Noncontrast axial CT imaging of the brain and skull. DOSE REDUCTION: Dosemodulation, iterative reconstruction, and/or weight-based adjustment of the mA/kV was utilized to reduce the radiation dose to as low as reasonably achievable. FINDINGS:No intracranial hemorrhage, midline shift or mass effect. [...] MDReport Verified Date/Time: 06/27/2018 23:42:40 Reading Location: [address] Neuro Reading Room URINALYSIS W/ REFLEX URINE [id number] 21:57:00 Test Item Value Reference Range Interpretation [...] = 2795) RAD, CHEST, 1 VIEW, NON [id number] 21:14:00Reason for exam:->LOSS OF CONSCIOUSNESSShould this be performed at the bedside?->YesFINAL REPORT INDICATION: LOSS OF CONSCIOUSNESS COMPARISON: None TECHNIQUE: Single frontal view of the chest. FINDINGS: Lungs and pleura: Clear lungs. No effusion.Heart and mediastinum: Normal heart size. Unremarkable mediastinal contours.Osseous structures: No acute abnormality.Other: None. IMPRESSION: No acute intrathoracic abnormality. Signed: Nick Gutierrez MDReport Verified Date/Time: 06/27/2018 21:14:39 Reading Location: [facility] C013V Neuro Reading Room [id number] 20:36:00 Test Item Value Reference Range Interpretation Comments MAGNESIUM (BEAKER) (test code = 2.0 mg/dL 1.6-2.6 627) [id number] 20:36:00 Test Item Value Reference Range Interpretation Comments PHOSPHORUS (BEAKER) (test code = 2.9 mg/dL 2.3-4.7 604) TROPONIN [id number] 19:30:00 Test Item Value Reference Range Interpretation [...] 0-100 (test code = 700) BASIC METABOLIC [id number] 19:28:00 Test Item Value Reference Range Interpretation [...] m DATA TO CALCULA TE ESTIMATED GFR. [id number] 19:24:00 Test Item Value Reference Range Interpretation Comments LIPASE (BEAKER) (test code = 749) 229 U/L 8-78 H HEPATIC FUNCTION [id number] 19:24:00 Test Item Value Reference Range Interpretation [...] 6-55 347) CBC W/PLT COUNT & AUTO [id number] 19:05:00 Test Item Value Reference Range Interpretation [...] % 0-1 PERCENT (BEAKER) (test code = 1184)
[2022-03-09] MEDS ORDERED: NA CHLORIDE 0.9% 1,000 ML ONE (10:50)
[2022-03-09] MEDS ORDERED: NA CHLORIDE 0.9% 500 ML ONE (10:50)
[2022-03-09 11:09] LABS: Absolute Lymphocytes (CBC) 0.6 K/uL (0.7-4.9); Hematocrit 34.1 % (39.6-49.0); Lymphocytes % 11.6 % (15.3-44.8); MCV 91.3 fL (80-100); MPV 7.6 fL (7.6-11.3); RBC Red Blood Cell Count 3.74 M/uL (4.33-5.43)
--- NOTE | 2022-03-09 11:15 | RAD REPORT ---
EXAM DESCRIPTION: CT - Head Brain Wo Cont - 03/09/2022 11:03 am CLINICAL HISTORY: Mental status change, unknown cause Headache, drowsiness COMPARISON: Head Brain Wo Cont dated 08/14/2021; Head Brain Wo Cont dated 07/04/2021 TECHNIQUE: All CT scans are performed using dose optimization technique as appropriate and may inclu de automated exposure control or mA/KV adjustment according to patient size. FINDINGS: No intracranial hemorrhage, hydrocephalus or extra-axial fluid collection.Mild generalized brain atrophy is present with mild periventricular and deep white matter chronic microvascular ische andrea changes.No areas of brain edema or evidence of midline shift. Mild bilateral mastoid effusions. The calvarium is intact. IMPRESSION: No acute intracranial abnormality. Mild bilateral mastoid effusions.
[2022-03-09 11:32] LABS: AST/SGOT 45 U/L (15-37); Albumin 2.8 g/dL (3.4-5.0); Alkaline Phosphatase 132 U/L (45-117); BUN Blood Urea Nitrogen 46 mg/dL (7-18); Bicarbonate 28 mmol/L (21-32); Bilirubin Direct 0.1 mg/dL (0-0.2); Bilirubin Total 0.4 mg/dL (0.2-1.0); Glomerular Filtration Rate 32 ml/min (=/>90); Glucose Level 115 mg/dL (74-106); NT PRO-BNP 4141 pg/mL (<450); Potassium 3.9 mmol/L (3.5-5.1); Protein, Total 7.3 g/dL (6.4-8.2); Sodium Level 140 mmol/L (136-145); Troponin High Sensitivity 10.7 pg/mL (<58.9)
[2022-03-09 11:39] LABS: ALT/SGPT < 10 U/L (12-78)
[2022-03-09 11:59] LABS: Urine Blood 1+ (Negative); Urine Glucose Negative (Negative); Urine Protein 2+ (Negative); Urine pH 5.5 (5.0-7.0)
[2022-03-09 12:37] LABS: Blood Morphology Comment NOTED (NOT SEEN); Hypochromasia 1+; Platelet Estimate ADEQ
--- NOTE | 2022-03-09 12:39 | RAD REPORT ---
EXAM DESCRIPTION: RAD - Chest Single View - 03/09/2022 12:30 pm CLINICAL HISTORY: AMS Chest pain. COMPARISON: Chest Single View dated 08/14/2021; Chest Single View dated 06/14/2021; Chest Single View dated 10/14/2020; Chest Single View dated 06/07/2019 FINDINGS: Portable technique limits examination quality. Mild bilateral pulmonary opacities are present which may represent pulmonary edema or pneumonia. The heart is mildly enlarged in size. No displaced fractures.
--- NOTE | 2022-03-09 14:24 | EDPHYS ---
Physician Documentation [facility] Name: Sumanth Louis Age: 81 yrs Sex: Male : 1940 Arrival Date: 03/09/2022 Time: 09:58 Bed 2 Private MD: ED Physician Sebastian Tineo HPI: 03/09 17:33 This 81 yrs old Male presents to ER via EMS with complaints of Altered Mental Status. kdr 17:33 The patient presents with decreased responsiveness. Onset: The symptoms/episode kdr began/occurred gradually, 3 day(s) ago. Possible causes: CVA or TIA, sepsis. Associated signs and symptoms: The patient has no apparent associated signs or symptoms. Current symptoms: In the emergency department the patient's symptoms are unchanged from the initial presentation, despite home interventions. Patient's baseline: Neuro: alert but confused, Motor: Unknown, Ambulation: unable to walk. It is unknown whether or not the patient has had similar symptoms in the past. Patient had a work-up earlier this week several days ago but apparently no abnormalities were found to account for the changes. Patient is brought from the care home where they noted that for the last 3 days he has been altered. It is reported that the facility did lab work several days ago without any findings that were helpful. Patient does respond to stimuli but otherwise is poorly responsive. Historical: - Allergies: 10:01 No Known Allergies; vg1 - Home Meds: 10:01 Aspirin Oral [Active]; atorvastatin 20 mg Oral tab 1 tab once daily [Active]; vg1 carbidopa-levodopa 25-250 mg Oral tab 1 tab 4 times per day [Active]; Furosemide Oral [Active]; Hydralazine Oral [Active]; memantine Oral [Active]; Plavix Oral [Active]; pramipexole oral [Active]; - PMHx: 10:01 Anemia; Anxiety; Bilateral degeneration of macula; CHF; Dementia; Essential vg1 Hypertension; Inguinal hernia R; Orthostatic hypotension; osteoarthritis; PAD; Pancreatitis; Parkinsons; Vitamin D3 deficiency; - Social history:: Smoking status: unknown. ROS: 17:33 Constitutional: Unable to obtain secondary to altered mental status kdr 17:33 Unable to obtain ROS due to altered mental status, baseline dementia. Exam: 17:33 Constitutional: This is a well developed, well nourished patient who is awake, alert, kdr and in no acute distress. Head/Face: Normocephalic, atraumatic. Eyes: Pupils equal round and reactive to light, extra-ocular motions intact. Lids and lashes normal. Conjunctiva and sclera are non-icteric and not injected. Cornea within normal limits. Periorbital areas with no swelling, redness, or edema. Neck: Trachea midline, no thyromegaly or masses palpated, and no cervical lymphadenopathy. Supple, full range of motion without nuchal rigidity, or vertebral point tenderness. No Meningismus. Chest/axilla: Normal chest wall appearance and motion. Nontender with no deformity. No lesions are appreciated. Cardiovascular: Regular rate and rhythm with a normal S1 and S2. No gallops, murmurs, or rubs. Normal PMI, no JVD. No pulse deficits. Respiratory: Lungs have equal breath sounds bilaterally, clear to auscultation and percussion. No rales, rhonchi or wheezes noted. No increased work of breathing, no retractions or nasal flaring. 17:33 ENT: Mouth: Oral mucosa: dry, Tongue: Vital Signs: 09:58 BP 121 / 58; Pulse 66; Resp 18; Temp 98.2(TE); Pulse Ox 100% on R/A; Weight 63.5 kg; vg1 10:00 BP 90 / 64; Pulse 64; Resp 19; Pulse Ox 100% on R/A; jd3 12:01 BP 108 / 57; Pulse 60; Resp 15; Pulse Ox 100% on R/A; jd3 13:12 BP 115 / 48; Pulse 61; Resp 16; Pulse Ox 100% on R/A; jd3 14:06 BP 148 / 61; Pulse 58; Resp 18; Pulse Ox 98% on R/A; jd3 18:00 BP 156 / 81; Pulse 69; Resp 18; Pulse Ox 96% on R/A; jd3 18:51 BP 106 / 59; Pulse 80; Resp 20; Temp 102.0; Pulse Ox 96% on R/A; jd3 20:43 BP 136 / 103; Pulse 72; Resp 18; Temp 99.7(R); Pulse Ox 97% on R/A; bb 21:29 BP 120 / 81; Pulse 65; Resp 18 S; Pulse Ox 96% on R/A; bb [place] Coma Score: 10:00 Eye Response: to pain(2). Verbal Response: inappropriate words(3). Motor Response: jd3 localizes pain(5). Total: 10. 10:59 Eye Response: spontaneous(4). Verbal Response: inappropriate words(3). Motor Response: jd3 obeys commands(6). Total: 13. MDM: 14:23 Patient medically screened. kdr 17:33 Data reviewed: vital signs, nurses notes. Counseling: I had a detailed discussion with kdr the patient and/or guardian regarding: the historical points, exam findings, and any diagnostic results supporting the discharge/admit diagnosis, lab results, radiology results, the need for further work-up and treatment in the hospital. 03/09 10:21 Order name: Basic Metabolic Panel; Complete Time: 11:54 [facility] 03/09 10:21 Order name: CBC with Diff; Complete Time: 12:55 [facility] 03/09 10:21 Order name: LFT's; Complete Time: 11:54 [facility] 03/09 10:21 Order name: NT PRO-BNP; Complete Time: 11:54 [facility] 03/09 10:21 Order name: Troponin HS; Complete Time: 11:54 [facility] 03/09 10:23 Order name: Urine Culture [facility] 03/09 11:14 Order name: Manual Differential; Complete Time: 12:55 [facility] 03/09 11:59 Order name: Urine Dipstick-Ancillary; Complete Time: 12:14 [facility] 03/09 14:56 Order name: Basic Metabolic Panel [facility] 03/09 14:56 Order name: Basic Metabolic Panel [facility] 03/09 14:56 Order name: CBC with Automated Diff [facility] 03/09 14:56 Order name: CBC with Automated Diff [facility] 03/09 15:01 Order name: SARS RAPID; Complete Time: 15:46 eb 03/09 17:46 Order name: Urine Microscopic Only; Complete Time: 20:51 la1 03/09 10:21 Order name: XRAY Chest (1 view); Complete Time: 12:55 kdr 03/09 10:21 Order name: EKG; Complete Time: 10:22 kdr 03/09 10:22 Order name: CT Head Brain wo Cont; Complete Time: 11:54 kdr 03/09 14:56 Order name: Regular [facility] 03/09 14:56 Order name: EKG Electrocardiogram [facility] 03/09 14:56 Order name: EKG Electrocardiogram [facility] 03/09 15:46 Order name: CT Abd/Pelvis - IV Contrast Only kdr 03/09 18:55 Order name: Blood Culture Adult (2) la1 03/09 18:55 Order name: Lactate la1 03/09 18:59 Order name: Abdomen ; Complete Time: 19:35 [facility] 03/09 10:21 Order name: Cardiac monitoring; Complete Time: 10:21 kdr 03/09 10:21 Order name: EKG - Nurse/Tech; Complete Time: 10:46 kdr 03/09 10:21 Order name: IV Saline Lock; Complete Time: 10:21 kdr 03/09 10:21 Order name: Labs collected and sent; Complete Time: 10:46 kdr 03/09 10:21 Order name: O2 Per Protocol; Complete Time: 10:21 kdr 03/09 10:21 Order name: O2 Sat Monitoring; Complete Time: 10:21 kdr 03/09 10:23 Order name: Urine Dipstick-Ancillary (obtain specimen); Complete Time: 12:00 kdr 03/09 12:00 Order name: Straight Cath; Complete Time: 12:00 [facility] 03/09 14:56 Order name: EKG Electrocardiogram [facility] 03/09 14:56 Order name: EKG Electrocardiogram [facility] Administered Medications: 10:57 Drug: NS 0.9% 500 ml Route: IV; Rate: bolus; Site: left forearm; jd3 10:57 Drug: NS 0.9% 1000 ml Route: IV; Rate: 75 ml/hr; Site: left forearm; jd3 14:49 Drug: Rocephin - (cefTRIAXone) 1 grams Route: IVPB; Infused Over: 30 mins; Site: left jd3 forearm; 18:51 Drug: Tylenol 1000 mg Route: PO; jd3 19:39 CANCELLED (Other Intervention Used): D5-1/2 NS 1000 ml IV at 75 ml/hr continuous la1 Disposition Summary: 03/09/22 14:23 Hospitalization Ordered Hospitalization Status: Inpatient Admission kdr Provider: Desmond Armendariz kdr Location: Telemetry/MedSurg (Inpatient) kdr Condition: Fair kdr Problem: new kdr Symptoms: are unchanged kdr Bed/Room Type: Standard kdr Room Assignment: 205(03/09/22 20:40) cg Diagnosis - Altered mental status, unspecified kdr - UTI/ Urinary tract infection, site not specified kdr - Pullmonary opacaities (pneumonia, vs CHF) kdr - Other malaise and fatigue kdr - Weakness kdr Forms: - Medication Reconciliation Form kdr - SBAR form kdr Signatures: Dispatcher [employer] Sebastian Robertson MD MD kdr Maia Garcia, SOCORRO RN ss Roscoe Montejo, QUANTITATIVE MANAGER-C QUANTITATIVE MANAGER-Lynnette1 Merly Covarrubias RN RN Tc Gould RN RN Gisele Cuevas Victoria, RN RN vg1 Corrections: (The following items were deleted from the chart) 15:54 14:23 kdr eb 17:05 15:54 206 eb ss 19:39 19:38 D5-1/2 NS 1000 ml IV at 75 ml/hr continuous ordered. la1 la1 20:40 17:05 [facility]
--- NOTE | 2022-03-09 14:24 | ER ---
Nurse's Notes [facility] Name: Sumanth Louis Age: 81 yrs Sex: Male : 1940 Arrival Date: 03/09/2022 Time: 09:58 Bed 2 Private MD: Diagnosis: Altered mental status, unspecified;UTI/ Urinary tract infection, site not specified;Pullmonary opacaities (pneumonia, vs CHF);Other malaise and fatigue;Weakness Presentation: 03/09 09:58 Chief complaint: EMS states: AMS x 3 days; facility stated did an Xray and Lab work a vg1 couple days ago and results were 'normal'. Pt responds to painful stimuli. Coronavirus screen: Vaccine status: Patient reports receiving the 2nd dose of the covid vaccine. Client denies travel out of the [place] in the last 14 days. Ebola Screen: Patient negative for fever greater than or equal to 101.5 degrees Fahrenheit, and additional compatible Ebola Virus Disease symptoms Patient denies exposure to infectious person. Initial Sepsis Screen: Does the patient meet any 2 criteria? No. Patient's initial sepsis screen is negative. Does the patient have a suspected source of infection? No. Patient's initial sepsis screen is negative. Risk Assessment: Do you want to hurt yourself or someone else?. Onset of symptoms was March 06, 2022. 09:58 Method Of Arrival: EMS: [facility] 1 09:58 Acuity: IRINA 2 vg1 Triage Assessment: 10:01 General: Appears in no apparent distress. Behavior is unresponsive. Pain: Unable to use vg1 pain scale. pt responds to painful stimuli. EENT: No signs and/or symptoms were reported regarding the EENT system. Neuro: Level of Consciousness is unresponsive, Pupils are PERRLA. Cardiovascular: Patient's skin is warm and dry. Respiratory: Airway is patent Respiratory effort is even, unlabored, Breath sounds are clear bilaterally. GI: Abdomen is flat, non-distended, Abd is soft and non tender X 4 quads. : No signs and/or symptoms were reported regarding the genitourinary system. Derm: Skin is pink, warm \T\ dry. Historical: - Allergies: 10:01 No Known Allergies; vg1 - Home Meds: 10:01 Aspirin Oral [Active]; atorvastatin 20 mg Oral tab 1 tab once daily [Active]; vg1 carbidopa-levodopa 25-250 mg Oral tab 1 tab 4 times per day [Active]; Furosemide Oral [Active]; Hydralazine Oral [Active]; memantine Oral [Active]; Plavix Oral [Active]; pramipexole oral [Active]; - PMHx: 10:01 Anemia; Anxiety; Bilateral degeneration of macula; CHF; Dementia; Essential vg1 Hypertension; Inguinal hernia R; Orthostatic hypotension; osteoarthritis; PAD; Pancreatitis; Parkinsons; Vitamin D3 deficiency; - Social history:: Smoking status: unknown. Screenin:02 Abuse screen: Denies threats or abuse. Nutritional screening: No deficits noted. jd3 Tuberculosis screening: No symptoms or risk factors identified. Fall Risk Secondary diagnosis (15 points) dementia, impaired mobility, IV access (20 points). Ambulatory Aid- None/Bed Rest/Nurse Assist (0 pts). Gait- Impaired (20 pts.). Mental Status- Overestimates/Forgets Limitations (15 pts.). Total Han Fall Scale indicates High Risk Score (45 or more points). Fall prevention measures have been instituted. Side Rails Up X 2 Placed Close to Nursing Station Frequent Obs/Assessments Occuring. Assessment: 09:58 General: Appears in no apparent distress. comfortable, Behavior is calm, drowsy, jd3 inappropriate for age. Pain: Unable to use pain scale. FLACC scale score is 0 out of 10. Neuro: Meyer Agitation-Sedation Scale (RASS): -1 Drowsy Level of Consciousness is confused, lethargic, Oriented to none. Cardiovascular: Heart tones S1 S2 present Capillary refill < 3 seconds Patient's skin is warm and dry. Pulses are palpable in right radial artery, right dorsalis pedis artery, left radial artery and left dorsalis pedis artery Rhythm is regular. Respiratory: Airway is patent Respiratory effort is even, unlabored, Respiratory pattern is regular, symmetrical, Breath sounds are clear bilaterally. GI: Abdomen is non-distended, Bowel sounds present X 4 quads. Abd is soft and non tender X 4 quads. : No signs and/or symptoms were reported regarding the genitourinary system. Derm: Skin is intact, Skin is dry, Skin is pale, Skin temperature is warm. Musculoskeletal: Circulation, motion, and sensation intact. Range of motion: intact in all extremities. 10:57 Reassessment: Patient appears in no apparent distress at this time. Patient and/or jd3 family updated on plan of care and expected duration. Pain level reassessed. Patient denies pain at this time. Neuro: Meyer Agitation-Sedation Scale (RASS): 0 - Alert and Calm Level of Consciousness is awake, obeys commands, confused, Oriented to none. Respiratory: Airway is patent Respiratory effort is even, unlabored, Respiratory pattern is regular, symmetrical. 12:01 Reassessment: Patient appears in no apparent distress at this time. No changes from jd3 previously documented assessment. Patient and/or family updated on plan of care and expected duration. Pain level reassessed. 13:11 Reassessment: Patient appears in no apparent distress at this time. No changes from jd3 previously documented assessment. Patient and/or family updated on plan of care and expected duration. Pain level reassessed. 14:06 Reassessment: Patient appears in no apparent distress at this time. No changes from jd3 previously documented assessment. Patient and/or family updated on plan of care and expected duration. Pain level reassessed. resting comfortably in bed Patient denies pain at this time. 15:00 Reassessment: Patient appears in no apparent distress at this time. No changes from jd3 previously documented assessment. Patient and/or family updated on plan of care and expected duration. Pain level reassessed. 16:00 Reassessment: Patient appears in no apparent distress at this time. No changes from jd3 previously documented assessment. Patient and/or family updated on plan of care and expected duration. Pain level reassessed. 17:00 Reassessment: Patient appears in no apparent distress at this time. No changes from jd3 previously documented assessment. Patient and/or family updated on plan of care and expected duration. Pain level reassessed. 18:00 Reassessment: Patient appears in no apparent distress at this time. No changes from jd3 previously documented assessment. Patient and/or family updated on plan of care and expected duration. Pain level reassessed. 19:30 Reassessment: pt sleeping, eyes closed, resp unlabored, IV site intact, patent with bb fluids infusing. 20:30 Reassessment: pt sleeping, eyes closed, resp unlabored, mouth open, IV site intact with bb fluids infusing. 21:20 Reassessment: pt sleeping, bladder scan 280 mLs, puente catheter inserted, pt tolerated bb poorly. 21:49 Reassessment: report given to Xiomara QUINTANILLA for room 205. bb Vital Signs: 09:58 BP 121 / 58; Pulse 66; Resp 18; Temp 98.2(TE); Pulse Ox 100% on R/A; Weight 63.5 kg; vg1 10:00 BP 90 / 64; Pulse 64; Resp 19; Pulse Ox 100% on R/A; jd3 12:01 BP 108 / 57; Pulse 60; Resp 15; Pulse Ox 100% on R/A; jd3 13:12 BP 115 / 48; Pulse 61; Resp 16; Pulse Ox 100% on R/A; jd3 14:06 BP 148 / 61; Pulse 58; Resp 18; Pulse Ox 98% on R/A; jd3 18:00 BP 156 / 81; Pulse 69; Resp 18; Pulse Ox 96% on R/A; jd3 18:51 BP 106 / 59; Pulse 80; Resp 20; Temp 102.0; Pulse Ox 96% on R/A; jd3 20:43 BP 136 / 103; Pulse 72; Resp 18; Temp 99.7(R); Pulse Ox 97% on R/A; bb 21:29 BP 120 / 81; Pulse 65; Resp 18 S; Pulse Ox 96% on R/A; bb [place] Coma Score: 10:00 Eye Response: to pain(2). Verbal Response: inappropriate words(3). Motor Response: jd3 localizes pain(5). Total: 10. 10:59 Eye Response: spontaneous(4). Verbal Response: inappropriate words(3). Motor Response: jd3 obeys commands(6). Total: 13. ED Course: 09:58 Patient arrived in ED. vg1 09:58 Tc Gould, SOCORRO is Primary Nurse. jd3 09:59 Sebastian Tineo MD is Attending Physician. kdr 10:01 Triage completed. vg1 10:01 Patient has correct armband on for positive identification. Bed in low position. Call jd3 light in reach. Side rails up X2. Client placed on continuous cardiac and pulse oximetry monitoring. NIBP monitoring applied. school bus monitor on. Pulse ox on. NIBP on. 10:01 Warm blanket given. jd3 10:02 Arm band placed on. jd3 11:05 CT Head Brain wo Cont In Process Unspecified. EDMS 12:00 Straight cath inserted, using sterile technique, 14 Fr. Specimen obtained. Returned jd3 cloudy urine. Patient tolerated well. Maintain EMS IV. Dressing intact. Good blood return noted. Site clean \T\ dry. Gauge \T\ site: 20 G left Forearm. 12:32 XRAY Chest (1 view) In Process Unspecified. EDMS 14:21 Desmond Armendariz MD is Hospitalizing Provider. kdr 18:59 Abdomen In Process Unspecified. EDMS 19:40 First set of blood cultures drawn by me. bb 19:48 Primary Nurse role handed off by Tc Gould RN mw2 21:20 Puente cath inserted, using sterile technique, [address], balloon inflated, to bb gravity drainage. 21:25 Abimbola Chavez, RN is Primary Nurse. bb 21:49 No provider procedures requiring assistance completed. Patient admitted, IV remains in bb place. Administered Medications: 10:57 Drug: NS 0.9% 500 ml Route: IV; Rate: bolus; Site: left forearm; jd3 10:57 Drug: NS 0.9% 1000 ml Route: IV; Rate: 75 ml/hr; Site: left forearm; jd3 14:49 Drug: Rocephin - (cefTRIAXone) 1 grams Route: IVPB; Infused Over: 30 mins; Site: left jd3 forearm; 18:51 Drug: Tylenol 1000 mg Route: PO; jd3 19:39 CANCELLED (Other Intervention Used): D5-1/2 NS 1000 ml IV at 75 ml/hr continuous la1 Medication: 12:01 VIS not applicable for this client. jd3 Outcome: 14:23 Decision to Hospitalize by Provider. kdr 21:49 Admitted to Tele accompanied by [facility], via stretcher, room 205, Report called to Xiomara arteaga RN 21:49 Condition: stable 21:59 Patient left the ED. bb Signatures: Dispatcher [employer] EDMS Sebastian Tineo MD MD kdr Abimbola Chavez, RN RN bb Tc Gould, SOCORRO RN jd3 Nikolay Hui mw2 Nayana Covarrubias RN RN 1 [facility]: (The following items were deleted from the chart) 10:59 10:00 GCS: 10, jd3 jd3 18:52 18:51 BP 106 / 49; Pulse 80bpm; Resp 20bpm; Pulse Ox 96% RA; Temp 102.0F; jd3 jd3
[2022-03-09] MEDS ORDERED: ACETAMINOPHEN 500 MG TAB PO PRN (14:41)
[2022-03-09] MEDS ORDERED: ONDANSETRON 4 MG/2 ML VIAL IV PRN ×2 (14:41→22:16)
[2022-03-09] MEDS ORDERED: NA CHLORIDE 0.9% 50 ML IV ONE (14:44)
[2022-03-09] MEDS ORDERED: CEFTRIAXONE 1000 MG/VIAL ONE (14:44)
[2022-03-09 15:36] LABS: SARS-CoV-2 Antigen Rapid Res Negative (Negative)
[2022-03-09] MEDS ORDERED: ACETAMINOPHEN 500 MG TAB ONE (18:44)
--- NOTE | 2022-03-09 19:14 | RAD REPORT ---
EXAM DESCRIPTION: CTAbdomen Pelvis Wo Contrast - 03/09/2022 6:57 pm CLINICAL HISTORY: eval pyelo, stone has UTI, minimally responsive COMPARISON: Abdomen Pelvis W Contrast dated 06/03/2019; Abdomen Pelvis W Contrast dated 11/07/2018; Abdomen Pelvis W Contrast dated 06/24/2018 TECHNIQUE: CT of the abdomen and pelvis was performed without contrast. All CT scans are performed using dose optimization technique as appropriate and may include automated exposure control or mA/KV adjustment according to patient size. FINDINGS: Lower chest: Multi-vessel coronary artery disease. Mitral annular calcifications. Liver: No acute abnormality or suspicious lesions. Biliary: Cholelithiasis Stomach: No significant focal abnormality. Duodenum: No significant focal abnormality. Pancreas: No significant abnormality. Spleen: No significant abnormality. Adrenal: No suspicious lesions. Kidney/ureter: No hydronephrosis. No renal calculi. Left renal cyst. Mild nonspecific left-sided evelin nephric stranding. Retroperitoneum: No retroperitoneal adenopathy. Vascular: No aneurysm. Atherosclerosis. Bowel: Colon and small bowel containing right inguinal hernia.. Peritoneum: No ascites or free air. Bladder: Circumferential bladder wall thickening. Reproductive: No adnexal masses. Bones: No acute fracture. Multilevel degenerative changes are present in the spine. Other: n/a IMPRESSION: No acute intra-abdominal or pelvic finding. Mild increased left perinephric stranding wh ich could indicate infection. No hydronephrosis. Circumferential bladder wall thickening which may be secondary to infection or chronic bladder outlet obstruction.
[2022-03-09 20:12] LABS: Urine Bacteria >50 /HPF (<20); Urine Crystals Unidentified Few /HPF (None Seen); Urine Mucus 2+ /HPF (None Seen); Urine RBC >50 /HPF (None Seen); Urine WBC Clump Few /HPF (None Seen)
--- NOTE | 2022-03-09 21:33 | P.HP ---
Certification for Inpatient Patient admitted to: Inpatient With expected LOS: >2 Midnights Patient will require the following post-hospital care: None Practitioner: I am a practitioner with admitting privileges, knowledge of patient current condition, hospital course, and medical plan of care. Services: Services provided to patient in accordance with Admission requirements found in Title 42 Section 412.3 of the Code of Federal Regulations Patient History Date of Service: 03/09/22 Reason for admission: Severe sepsis, UTI, AMS, ARF History of Present Illness: 81-year-old male with history of advanced dementia, Parkinson, chronic diastolic congestive heart failure, hypertension presents to the emergency department for altered mental status. Patient from group home, they report he has been altered x3 days responsive to loud verbal or painful stimulus only. Patient was evaluated in the emergency department his labs were significant for 13% bands, creatinine 2.04, GFR 32 BNP 4147 urinalysis with 1+ leuk esterase urine microscopic with greater than 50 bacteria greater than 50 white blood cell greater than 50 red blood cell chest x-ray was obtained which revealed mild bilateral pulmonary opacities are present with near absent pulmonary edema or pneumonia the heart is mildly enlarged in size with no displaced fractures. CT head without contrast was performed which showed no acute intracranial abnormality. Mild bilateral mastoid effusions. CT abdomen pelvis was also obtained without IV contrast which showed no acute intra-abdominal or pelvic finding. Mild increased left perinephric stranding which could indicate infection. No hydronephrosis. Circumferential bladder wall thickening which may be secondary to infection or chronic bladder outlet obstruction. Patient was given IV antibiotics and then presented to the emergency department initial lactic acid 0.9. ED provider wishes to admit for further evaluation and management of severe sepsis, TREVOR, UTI, AMS. Allergies No Known Allergies Allergy (Verified 06/07/19 21:10) Home Medications: Aspirin [Aspir-Low] 1 tab PO DAILY 06/08/19 Atorvastatin Calcium [Lipitor*] 1 tab PO BEDTIME 06/08/19 Carbidopa/Levodopa [Carbidopa-Levo 25-250 mg Odt] 1 tab PO QID 06/08/19 Mirtazapine [Remeron*] 15 mg PO BEDTIME 06/08/19 Mv-Mins/Folic/Lycopene/Ginkgo [One Daily Men's 50+ Tablet] 1 tab PO DAILY 06/08/19 Memantine HCl [Namenda] 1 tab PO BID 09/05/19 Pramipexole Di-HCl [Pramipexole Dihydrochloride] 0.125 mg PO TID 10/14/20 Clopidogrel Bisulfate [Plavix*] 75 mg PO DAILY #0 tablet 10/15/20 Hydralazine [Apresoline*] 10 mg PO BID PRN #30 tab 10/15/20 - Past Medical/Surgical History Diabetic: No -: Parkinson's -: Dementia likely vascular -: Macular degeneration -: Skin Ca - L cheek & R ear; -: GERD -: Hyperlipidemia -: CHFdiastolic dysfunction -: PAD -: Right inguinal hernia -: Vit D deficiency -: Orthostatic hypotension on midodrine -: Appendectomy Psychosocial/ Personal History: Patient currently resident of group home - Family History Mother -: Lung disease, GI disease Notes: pancreatitis. diverticulitis Father -: Diabetes - Social History Alcohol use: No CD- Drugs: No Caffeine use: Yes Place of Residence: [place] Review of Systems is unable to be obtained (Altered) Physical Examination - Physical Exam General: Other (Somnolent, responsive to loud verbal or physical stimulus) HEENT: Atraumatic, PERRLA, Mucous membr. moist/pink, EOMI, Sclerae nonicteric Neck: Supple, 2+ carotid pulse no bruit, No LAD, Without JVD or thyroid abnormality Respiratory: Normal air movement, Diminished Cardiovascular: Regular rate/rhythm, Normal S1 S2 Capillary refill: <2 Seconds Gastrointestinal: Normal bowel sounds, No tenderness Musculoskeletal: No tenderness Integumentary: No rashes Neurological: Other (Patient is somnolent, responsive to loud verbal or physical stimulus he is moving all his extremities.) - Studies Laboratory Data (last 24 hrs) 03/09/22 10:43: WBC 4.90, Hgb 11.1 L, Hct 34.1 L, Plt Count 152 03/09/22 10:43: Sodium 140, Potassium 3.9, BUN 46 H, Creatinine 2.04 H, Glucose 115 H, Total Bilirubin 0.4, AST 45 H, ALT < 10 L, Alkaline Phosphatase 132 H Assessment and Plan - Plan Assessment: Severe sepsis secondary to UTI, pyelonephritis Acute renal failure secondary to severe sepsis/UTI Acute metabolic encephalopathy secondary to sepsis, UTI Chronic diastolic congestive heart failure Advanced dementia, Parkinson's Plan: Severe sepsis secondary to UTI, pyelonephritis: Blood cultures, urine cultures obtained continue antibioticsRocephin. Follow blood/urine cultures. Continue gentle IV fluids. Meets criteria for severe sepsis given acute renal failure. Acute renal failure secondary to severe sepsis/UTI: Nephrology consult in place continue gentle IV fluids, renal ultrasound ordered. Continue antibiotics. Acute metabolic encephalopathy secondary to sepsis, UTI: Continue as above. Chronic diastolic congestive heart failure: Does not appear grossly overloaded/hypoxic at this time will monitor volume status closely. Advanced dementia, Parkinson's: Continue home medications when appropriate. DVT PPX: Heparin Code status: Full Discharge Plan: Home Plan to discharge in: Greater than 2 days - Advance Directives Does patient have a Living Will: No Does patient have a Durable POA for Healthcare: Yes - Code Status/Comfort Care Code Status Assessed: Yes (Full code) Critical Care: No Time Spent Managing Pts Care (In Minutes): 70
[2022-03-09] MEDS ORDERED: ACETAMINOPHEN 650MG/RECT SUPP PR PRN (22:16)
[2022-03-10] MEDS: HEPARIN 5000 UNIT/ML 1 ML VIAL SQ SCH ×3 (00:14→20:26)
[2022-03-10] MEDS: D5 0.45 NS 1,000 ML IV SCH ×2 (00:14→12:06)
[2022-03-10 07:35] LABS: ALT/SGPT 11 U/L (12-78); Albumin 2.3 g/dL (3.4-5.0); BUN Blood Urea Nitrogen 41 mg/dL (7-18); Bicarbonate 25 mmol/L (21-32); Bilirubin Total 0.2 mg/dL (0.2-1.0); Creatine Phosphokinase 280 U/L (39-308); Glomerular Filtration Rate 41 ml/min (=/>90); Glucose Level 102 mg/dL (74-106); HDL Cholesterol 21 mg/dL (40-60); LDL Cholesterol, Calculated 71 mg/dL (<130); Protein, Total 6.1 g/dL (6.4-8.2); Sodium Level 145 mmol/L (136-145); Thyroid Stimulating Hormone 0.963 uIU/mL (0.360-3.740); Uric Acid 7.6 mg/dL (3.5-7.2)
[2022-03-10 07:36] LABS: AST/SGOT 27 U/L (15-37); Alkaline Phosphatase < 10 U/L (45-117); Potassium 4.2 mmol/L (3.5-5.1)
[2022-03-10 07:58] LABS: Hematocrit 31.9 % (39.6-49.0); Lymphocytes % 13.3 % (15.3-44.8); MCV 91.8 fL (80-100); MPV 7.7 fL (7.6-11.3); RBC Red Blood Cell Count 3.48 M/uL (4.33-5.43)
--- NOTE | 2022-03-10 08:06 | RAD REPORT ---
EXAM DESCRIPTION: US - Renal Ultrasound-Complete - 03/10/2022 6:40 am CLINICAL HISTORY: arf COMPARISON: Head C Spine Mpr Wo Con dated 02/17/2021bdomen Pelvis Wo Contrast dated 03/09/2022 FINDINGS: Limited exam as the patient was combative. Small bilateral renal cysts identified. The rig ht kidney measures 9.8 cm. The left kidney measures 9.7 cm. No evidence of hydronephrosis. No renal c alculi. Echogenicity is within normal limits. IMPRESSION: No evidence of hydronephrosis. Bilateral renal cysts.
[2022-03-10] MEDS ORDERED: ASPIRIN EC 81 MG TAB PO SCH (09:00)
[2022-03-10] MEDS ORDERED: CEFTRIAXONE 1000 MG/VIAL ONE (09:09)
[2022-03-10] MEDS ORDERED: NA CHLORIDE 0.9% 50 ML ONE (09:19)
[2022-03-10] MEDS: CEFTRIAXONE 1,000 MG in NA CHLORIDE 0.9% 50 ML IVPB SCH (09:39)
[2022-03-10 10:09] LABS: Blood Morphology Comment NOT SEEN (NOT SEEN); Platelet Estimate ADEQ
--- NOTE | 2022-03-10 17:44 | P.PN ---
Date of Service: 03/10/22 Subjective: No acute events overnight Patient slightly more responsive than yesterday, says few words when being repositioned, opens eyes to verbal stimuli ROS: 10 point ROS unable to be obtained Physical exam GEN: Opens eyes to verbal stimuli, NAD HEENT: Normal conjunctiva, sclera anicteric CV: Regular rate and rhythm, no edema Pulm: Nonlabored respirations on 2L NC ABD: Soft, mild TTP suprapubic, non-distended Neuro: opes eyes to verbal stimuli, moves extremities, slight rigidity Problem List Severe sepsis secondary to UTI, pyelonephritis Acute renal failure secondary to severe sepsis/UTI Acute metabolic encephalopathy secondary to sepsis, UTI Chronic diastolic congestive heart failure Advanced dementia, Parkinson's with autonomic dysfunction afib, paroxysmal Severe sepsis secondary to UTI, pyelonephritis: Blood cultures, urine cultures obtained continue antibioticsRocephin. Continue gentle IV fluids. Meets criteria for severe sepsis given acute renal failure. Acute renal failure secondary to severe sepsis/UTI Acute metabolic encephalopathy secondary to sepsis, UTI improving with IVF, suspect prerenal / sepsis nephrology consulted renal U/S ordered Chronic diastolic congestive heart failure: Does not appear grossly overloaded/hypoxic at this time will monitor volume status closely. Advanced dementia, Parkinson's Continue home medications when appropriate. VTE: Heparin Code: DNR Dispo: Back to detention, ~3 days Time Spent Managing Pts Care (In Minutes): 35
[2022-03-11 06:19] LABS: Absolute Lymphocytes (CBC) 0.8 K/uL (0.7-4.9); Hematocrit 33.6 % (39.6-49.0); Lymphocytes % 13.2 % (15.3-44.8); MCV 91.7 fL (80-100); MPV 7.1 fL (7.6-11.3); RBC Red Blood Cell Count 3.66 M/uL (4.33-5.43)
[2022-03-11 06:46] LABS: Albumin 2.3 g/dL (3.4-5.0); Bilirubin Total 0.3 mg/dL (0.2-1.0); Potassium 3.8 mmol/L (3.5-5.1); Protein, Total 6.4 g/dL (6.4-8.2)
[2022-03-11] MEDS ORDERED: CEFTRIAXONE 1000 MG/VIAL ONE (07:45)
[2022-03-11] MEDS ORDERED: NA CHLORIDE 0.9% 50 ML ONE (07:55)
[2022-03-11] MEDS: CEFTRIAXONE 1,000 MG in NA CHLORIDE 0.9% 50 ML IVPB SCH (08:09)
[2022-03-11 08:44] LABS: Anisocytosis SLIGHT; Blood Morphology Comment NOTED (NOT SEEN); Platelet Estimate ADEQ; Toxic Granulation PRESENT
[2022-03-11 08:45] LABS: Poikilocytosis SLIGHT
[2022-03-11] MEDS: HEPARIN 5000 UNIT/ML 1 ML VIAL SQ SCH ×2 (09:55→22:04)
--- NOTE | 2022-03-11 12:37 | P.CNS ---
Date of Consult: 03/11/22 Reason for Consult: TREVOR, UTI Requesting Physician: Desmond Armendariz Chief Complaint: Severe sepsis, UTI, AMS, ARF History of Present Illness: Pt is a 81-year-old male whose medical history is obtained through chart review as pt is not able to provide one and no family members present. He has a reported hx of advanced dementia, Parkinson, chronic diastolic congestive heart failure, aortic stenosis and hypertension who presented to the emergency department for altered mental status. Patient from residential, where pt apparently had been lethargic for several days. Pt was found to have TREVOR, abnormal UA, left perinephric stranding on CT and other. Pt appears to be improving on IVF and Abx and while he is awake this AM, he is not able to verbalize much on my interaction. No distress noted, no signs of abdominal pain or nausea, he does report some Rt shoulder pain. Allergies No Known Allergies Allergy (Verified 06/07/19 21:10) Home Medications: Aspirin Chewable [Aspirin Chewable*] 81 mg PO DAILY 03/10/22 Atorvastatin Calcium 20 mg PO BEDTIME 03/10/22 Bisacodyl [Laxative Suppository] 10 mg RC DAILY PRN 03/10/22 Carbidopa/Levodopa [Carbidopa-Levo 25-250 mg Odt] 1 each PO QID 03/10/22 Cetirizine HCl [Zyrtec] 10 mg PO BEDTIME 03/10/22 Clopidogrel Bisulfate [Plavix] 75 mg PO DAILY 03/10/22 Docusate Sodium 100 mg PO BID PRN 03/10/22 Furosemide [Lasix] 20 mg PO DAILY 03/10/22 Hydralazine [Apresoline] 10 mg PO DAILY 03/10/22 Mag Hydroxide 8% [Milk Of Magnesia*] 30 ml PO EVERY 3RD DAY 03/10/22 Memantine HCl [Namenda] 5 mg PO BID 03/10/22 Mirtazapine 1 tab PO BEDTIME 03/10/22 Mv-Mn/Om3/Dha/Epa/Fish/Lut/Saurav [Ocuvite Adult 50 Plus Softgel] 1 each PO BID 03/10/22 Polyethylene Glycol 3350 [Miralax] 1 packet PO DAILY 03/10/22 Pramipexole Di-HCl [Pramipexole Dihydrochloride] 0.125 mg PO TID 03/10/22 - Past Medical/Surgical History Diabetic: No -: Parkinson's -: Dementia likely vascular -: Macular degeneration -: Skin Ca - L cheek & R ear; -: GERD -: Hyperlipidemia -: CHFdiastolic dysfunction -: PAD -: Right inguinal hernia -: Vit D deficiency -: Orthostatic hypotension on midodrine -: Appendectomy Psychosocial/ Personal History: Patient currently resident of residential - Family History Mother Medical History: Lung disease, GI disease Notes: pancreatitis. diverticulitis Father Medical History: Diabetes - Social History Smoking Status: Unknown if ever smoked Alcohol use: No CD- Drugs: No Caffeine use: Yes Place of Residence: Assisted Review of Systems is unable to be obtained (due to AMS, dementia) Physical Examination Temp Pulse Resp BP Pulse Ox 97.8 F 54 18 172/71 H 95 03/11/22 12:00 03/11/22 12:00 03/11/22 12:00 03/11/22 12:00 03/11/22 12:00 General: In no apparent distress (Frail, elderly, cachectic ) HEENT: Atraumatic, Normocephalic, Other (Dry oral mucosa) Neck: Supple Respiratory: Normal air movement (No rhonchi appreciated) Cardiovascular: No edema, Regular rate/rhythm (Cardiac murmur present) Gastrointestinal: Soft and benign, Non-distended, No tenderness Musculoskeletal: Contractures, Other (Muscle wasting) Neurological: Other (Awake, verbalizes briefly, generalized weakness), Dementia Conclusions/Impression: 1. Abnormal results of kidney function studies 2. Stage II TREVOR 3. Pre-renal azotemia 4. ESBL Ecoli complicated UTI, site unspecified, POA 5. Microscopic hematuria unspecified 6. Abnormality of albumin 7. Accelerated HTN 8. Chronic diastolic CHF -Cr level downward trending nicely with IVF hydration, UOP acceptable. -Brower presumably placed in the ER, no hydro noted on imaging but pt does have some circumstantially thickened bladder presumably due to some chronic HARDIN and/or cystitis. -ESBL ecoli on UCx, Abx switched to Meropenem, based on improving CrCl, ok to cont current dose of 1 gm q12h. -Will lower rate of IVF as BP accelerated, CXR on admission with some basilar infiltrates and BNP elevated on admission. Will not d/c IVF entirely as pt is NPO currently and reports of poor PO intake at [place]. -Will add Hydralazine IV PRN for elevated BP for now. Thank you for this referral, Sulaiman Wagner MD, PAMELAN
[2022-03-11] MEDS ORDERED: Meropenem 1,000 MG in NA CHLORIDE 0.9% 100 ML IV SCH (13:00)
[2022-03-11] MEDS: Meropenem 1,000 MG in NA CHLORIDE 0.9% 100 ML IV SCH ×2 (13:36→22:03)
[2022-03-11] MEDS: HYDRALAZINE HCL 20 MG/ML VIAL IV PRN (13:36)
[2022-03-11] MEDS: D5 0.45 NS 1,000 ML IV SCH ×2 (13:37)
[2022-03-11] MEDS: CARBIDOPA/LEVODOPA 25/250 TAB PO SCH ×2 (17:00→21:00)
--- NOTE | 2022-03-11 17:15 | P.PN ---
Date of Service: 03/11/22 Subjective: No acute events overnight Patient slightly more responsive than yesterday ROS: 10 point ROS unable to be obtained Physical exam GEN: Opens eyes to verbal stimuli, said a few words HEENT: Normal conjunctiva, sclera anicteric CV: Regular rate and rhythm, no edema Pulm: Nonlabored respirations on 2L NC ABD: Soft, mild TTP suprapubic, non-distended Neuro: opens eyes to verbal stimuli, moves extremities, slight rigidity Problem List Severe sepsis secondary to UTI, pyelonephritis; ESBL Acute renal failure secondary to severe sepsis/UTI Acute metabolic encephalopathy secondary to sepsis, UTI Chronic diastolic congestive heart failure Advanced dementia, Parkinson's with autonomic dysfunction afib, paroxysmal Severe sepsis secondary to UTI, pyelonephritis: Blood cultures, urine cultures obtained Urine growing ESBL, Rocephin discontinued, started meropenem 03/11 Continue gentle IV fluids. Meets criteria for severe sepsis given acute renal failure. Improving Acute renal failure secondary to severe sepsis/UTI Acute metabolic encephalopathy secondary to sepsis, UTI improving with IVF, suspect prerenal / sepsis nephrology consulted renal U/S ordered Chronic diastolic congestive heart failure: Does not appear grossly overloaded/hypoxic at this time will monitor volume status closely. Advanced dementia, Parkinson's Continue home medications when appropriate. afib, paroxysmal given lopressor on prior admission, had bradycardia and long pause; at that time cardiology recommended use of digoxin 0.25 if afib recurred monitor on telemertry Code: DNR Dispo: Back to [facility], ~3 days Time Spent Managing Pts Care (In Minutes): 35
[2022-03-11] MEDS: MIRTAZAPINE 15 MG TAB PO SCH (21:00)
[2022-03-11] MEDS: MEMANTINE HCL 10 MG TABLET FT SCH (21:00)
[2022-03-12] MEDS: D5 0.45 NS 1,000 ML IV SCH ×3 (03:39→20:12)
[2022-03-12 03:50] LABS: Absolute Lymphocytes (CBC) 0.9 K/uL (0.7-4.9); Hematocrit 32.3 % (39.6-49.0); Lymphocytes % 16.8 % (15.3-44.8); MCV 90.2 fL (80-100); MPV 7.1 fL (7.6-11.3); RBC Red Blood Cell Count 3.59 M/uL (4.33-5.43)
[2022-03-12 04:21] LABS: Albumin 2.2 g/dL (3.4-5.0); Bilirubin Total 0.3 mg/dL (0.2-1.0); Magnesium 2.2 mg/dL (1.8-2.4); Phosphorus 3.4 mg/dL (2.5-4.9); Potassium 3.6 mmol/L (3.5-5.1)
[2022-03-12 06:41] VITALS: BMI 22.5
[2022-03-12] MEDS: Meropenem 1,000 MG in NA CHLORIDE 0.9% 100 ML IV SCH ×2 (08:38→20:11)
[2022-03-12] MEDS: HEPARIN 5000 UNIT/ML 1 ML VIAL SQ SCH ×2 (08:38→20:11)
[2022-03-12] MEDS: CARBIDOPA/LEVODOPA 25/250 TAB PO SCH ×4 (08:39→20:12)
[2022-03-12] MEDS: MEMANTINE HCL 10 MG TABLET FT SCH ×2 (08:39→20:12)
[2022-03-12] MEDS: HYDRALAZINE HCL 20 MG/ML VIAL IV PRN (13:52)
--- NOTE | 2022-03-12 15:16 | EKG ---
Test Date: 2022-03-09 Test Time: 10:39:53 Marble Worker: MEASUREMENT RESULTS: Intervals: Rate: 64 [place]: 144 QRSD: 88 QT: 428 QTc: 441 [place]: P: 60 [place]: 144 QRS: 44 T: 46 INTERPRETIVE STATEMENTS: Normal sinus rhythm Normal ECG Compared to ECG 08/14/2021 14:26:36 Prolonged QT interval no longer present Electronically Signed On 03-12-22 15:11:11 ENDOCRINOLOGY TEACHER by Rob Das
--- NOTE | 2022-03-12 16:21 | P.PN ---
Date of Service: 03/12/22 Subjective: No acute events overnight Patient slightly more responsive each day speech consulted ROS: 10 point ROS unable to be obtained Physical exam GEN: Opens eyes to verbal stimuli, said a few words; laying with mouth wide open HEENT: Normal conjunctiva, sclera anicteric CV: Regular rate and rhythm, no edema Pulm: Nonlabored respirations on 2L NC ABD: Soft, nontender, non-distended Neuro: opens eyes to verbal stimuli, moves extremities, slight rigidity Problem List Severe sepsis secondary to UTI, pyelonephritis; ESBL with bacteremia TREVOR 2/2 severe sepsis / UTI Acute metabolic encephalopathy secondary to sepsis, UTI Chronic diastolic congestive heart failure Advanced dementia, Parkinson's with autonomic dysfunction afib, paroxysmal moderate protein calorie malnutrition Severe sepsis secondary to UTI, pyelonephritis: blood and urine: ESBL rocephin switched to merrem on 03/11 PICC ordered 03/12 ID consulted Acute renal failure secondary to severe sepsis/UTI Acute metabolic encephalopathy secondary to sepsis, UTI improving with IVF, suspect prerenal / sepsis nephrology consulted renal U/S ordered Chronic diastolic congestive heart failure: Does not appear grossly overloaded/hypoxic at this time will monitor volume status closely. Advanced dementia, Parkinson's Continue home medications when appropriate. afib, paroxysmal given lopressor on prior admission, had bradycardia and long pause; at that time cardiology recommended use of digoxin 0.25 if afib recurred monitor on telemertry moderate protein calorie malnutrition NPO currently, risk for aspiration given encephalopathy may need dobhoff for feeds, and medication want to avoid further delay of parkinson meds, otherwise patient will lock up more attempted to discuss with MPOA - sister, no answer speech therapy consulted to cristian, Code: DNR Dispo: Back to jail, ~3 days Time Spent Managing Pts Care (In Minutes): 35
[2022-03-12] MEDS: MIRTAZAPINE 15 MG TAB PO SCH (20:12)
--- NOTE | 2022-03-13 00:27 | CON ---
History Of Present Illness: The patient is an 81-year-old male with longstanding history of dementia , Parkinson disease, chronic diastolic congestive heart failure, and hypertension who was brought int o the hospital with altered mental status. Patient is not a good historian. Most of the history was obtained through medical records and staff. I was consulted to see patient for ESBL E coli urinary tract infection and bacteremia. The patient is currently on meropenem, not in any distress, lying in bed. As per staff, patient overnight had no acute events. CT abdomen shows no acute findings. Past Medical History: As per HPI plus hyperlipidemia, gastroesophageal reflux disease, skin cancer l eft cheek and right ear, muscular degeneration, peripheral arterial disease, right inguinal hernia, v itamin D deficiency, orthostatic hypertension on midodrine, and appendectomy. Social History: Nonsmoker, nondrinker. Family History: Noncontributory. Medications: Meropenem. See MAR for other medications. Allergies: NO KNOWN DRUG ALLERGIES. Review of Systems: Unable to obtain. Physical Examination: General: This is an 81-year-old male lying in bed, not in any acute cardiopulmonary distress. Vital Signs: Temperature 98, pulse 56, respirations 16, blood pressure 144/77. HEENT: Unremarkable. Neck: Supple. Lungs: Basal crackles. Heart: S1, S2 regular. Abdomen: Soft, nontender. Bowel sounds present. Extremities: No edema. Laboratory Data: WBC 5.6, hemoglobin 10.7, and platelets of 189. Chemistry shows sodium 145, potass ium 3.6, chloride 113, bicarb 29, BUN 19, creatinine 1.23, glucose is 108, albumin level is 2.2. Uri nalysis showed the patient had more than 50 WBC. Microdata shows ESBL E coli in urine and blood cult ures from 03/09/2022. Assessment And Plan: Urosepsis secondary to Escherichia coli extended spectrum beta-lactamase, bacte remia secondary to Escherichia coli extended spectrum beta-lactamase. Consider getting PICC line angelia cement for long-term IV antibiotic treatment. Repeat blood cultures. If patient spikes fever, the p atient to receive antibiotic for total of 2 weeks. We will follow the patient closely for signs for any infection with WBC and fever trends. Anemia of chronic disease. Moderate protein-calorie malnou rishment. Consider PEG tube placement. We will follow the patient as needed. Thank you Dr. Armendariz for consult. NF/MODL Voice ID: [id number] Report ID: [id number]
[2022-03-13] MEDS ORDERED: METOPROLOL TARTRATE 5 MG/5 ML INJ IV STA (04:18)
[2022-03-13] MEDS: D5 0.45 NS 1,000 ML IV SCH ×2 (04:29→19:42)
[2022-03-13 05:59] LABS: Hematocrit 34.5 % (39.6-49.0); MCV 90.6 fL (80-100); MPV 7.2 fL (7.6-11.3); RBC Red Blood Cell Count 3.81 M/uL (4.33-5.43)
[2022-03-13 06:05] LABS: Magnesium 2.3 mg/dL (1.8-2.4); Phosphorus 1.9 mg/dL (2.5-4.9); Potassium 3.6 mmol/L (3.5-5.1)
[2022-03-13] MEDS: HEPARIN 5000 UNIT/ML 1 ML VIAL SQ SCH ×2 (08:32→22:58)
[2022-03-13] MEDS: Meropenem 1,000 MG in NA CHLORIDE 0.9% 100 ML IV SCH ×2 (08:32→22:47)
[2022-03-13] MEDS: HYDRALAZINE HCL 20 MG/ML VIAL IV PRN (08:33)
[2022-03-13] MEDS: MEMANTINE HCL 10 MG TABLET FT SCH ×2 (08:44→21:00)
[2022-03-13] MEDS: CARBIDOPA/LEVODOPA 25/250 TAB PO SCH ×4 (08:45→21:00)
--- NOTE | 2022-03-13 16:00 | P.PN ---
Subjective Date of Service: 03/13/22 Chief Complaint: Severe sepsis, UTI, AMS, ARF Patient is severely demented and not able to give any subjective complaint. No issues overnight.. No agitation reported. Physical Examination - Vital Signs Temperature: 97.9 F Blood Pressure: 147/59 Pulse: 54 Respirations: 16 Pulse Ox (%): 95 Assessment And Plan - Plan Physical exam GEN: Opens eyes to verbal stimuli, said a few words; laying with mouth wide open HEENT: Normal conjunctiva, sclera anicteric CV: Regular rate and rhythm, no edema Pulm: Nonlabored respirations on 2L NC ABD: Soft, nontender, non-distended Neuro: opens eyes to verbal stimuli, moves extremities, slight rigidity Problem List Severe sepsis secondary to UTI, pyelonephritis; ESBL with bacteremia TREVOR 2/2 severe sepsis / UTI Acute metabolic encephalopathy secondary to sepsis, UTI Chronic diastolic congestive heart failure Advanced dementia, Parkinson's with autonomic dysfunction afib, paroxysmal Severe protein calorie malnutrition Severe sepsis secondary to UTI, pyelonephritis: blood and urine: ESBL rocephin switched to merrem on 03/11 PICC ordered 03/[address] Olivera recommended 14 days of IV meropenem. Noted patient was on hospice before transfer to the emergency department. I spoke to the daughter who is hoping patient to go back on hospice. Social service to confirm hospice will accept patient with IV antibiotics. Acute renal failure secondary to severe sepsis/UTI Acute metabolic encephalopathy secondary to sepsis, UTI Resolved with IVF, suspect prerenal / sepsis nephrology is following. renal U/S: Bilateral renal cyst, no hydronephrosis. Chronic diastolic congestive heart failure: Appears compensated for CHF. Advanced dementia, Parkinson's Continue home medications when patient able to tolerate p.o. Speech therapy consult. Anticipating patient will be discharged to hospice where he continue pleasure feeding. Daughter is not on board with PEG tube feeding for now. Afib, paroxysmal given lopressor on prior admission, had bradycardia and long pause; at that time cardiology recommended use of digoxin 0.25 if afib recurred monitor on telemertry Severe protein calorie malnutrition NPO currently, risk for aspiration. I suspect patient is not too far from his baseline mental status. Swallow evaluation, and if patient passed swallow to resume his Parkinson's medications. Code: DNR Dispo: Back to [facility] on hospice with IV antibiotics Time Spent Managing Pts Care (In Minutes): 37
[2022-03-13] MEDS: MIRTAZAPINE 15 MG TAB PO SCH (21:00)
--- NOTE | 2022-03-13 21:05 | P.PN ---
Date of Service: 03/13/22 Vital Signs Temp Pulse Resp BP Pulse Ox 97.9 F 54 16 147/59 H 95 03/13/22 16:00 03/13/22 16:00 03/13/22 16:00 03/13/22 16:00 03/13/22 16:00 Medications Acetaminophen (Acetaminophen 650mg/Rect Supp) 650 mg MN Q6HP PRN PRN Reason: TEMP > 100' F Carbidopa/Levodopa (Carbidopa/Levodopa 25/250 Tab) 1 tab PO QID [facility] Last Admin: 03/13/22 16:50 Dose: Not Given Heparin Sodium (Porcine) (Heparin 5000 Unit/Ml 1 Ml Vial) 5,000 unit SQ Q12HR [facility] Last Admin: 03/13/22 08:32 Dose: 5,000 unit Hydralazine HCl (Hydralazine Hcl 20 Mg/Ml Vial) 5 mg IV Q4HP PRN PRN Reason: Indicated for SBP > 170 mmhg Last Admin: 03/13/22 08:33 Dose: 5 mg Dextrose/Sodium Chloride (Dextrose 5% O.45% Saline) 1,000 mls @ 50 mls/hr IV .Q20H [facility] Last Admin: 03/13/22 19:42 Dose: 1,000 mls Meropenem 1,000 mg/ Sodium (Chloride) 100 mls @ 200 mls/hr IV Q12HR [facility] Last Admin: 03/13/22 08:32 Dose: 100 mls Memantine (Memantine Hcl 10 Mg Tablet) 5 mg FT BID [facility] Last Admin: 03/13/22 08:44 Dose: Not Given Mirtazapine (Mirtazapine 15 Mg Tab) 7.5 mg PO BEDTIME [facility] Last Admin: 03/12/22 20:12 Dose: Not Given Ondansetron HCl (Ondansetron 4 Mg/2 Ml Vial) 4 mg IV Q6HP PRN PRN Reason: NAUSEA / VOMITING Sodium Chloride (Flush Normal Saline 10 Ml) 10 ml IV BID [facility] Last Admin: 03/13/22 08:45 Dose: Not Given Microbiology Results 03/09/22 11:56 Catheterized Urine [place] Count - Final >100,000 CFU/ML. 03/09/22 11:56 Catheterized Urine - Final Escherichia Coli Esbl Assessment/ Plan: Nephrology No dyspnea No chest pain No acute events overnight Vitals, medications, blood work and imaging reviewed in the chart. NAD. NCAT. MMM. Neck supple. Normal respiratory effort. RRR. Abd ND. No C/C/E. No rash. AAO. Normal speech. Diffuse muscle atrophy. Stage II TREVOR CKD II with proteinuria -No NSAIDs HypoPO4 -Encourage nutrition HTN with CKD/ CHF -Hydralazine prn Diastolic CHF, chronic -Low sodium diet Moderate malnutrition Decreased functional ability -Consider protein supplementation Anemia in chronic illness -Monitor H&H E.coli Sepsis E.coli Acute Cystitis -Continue abx
[2022-03-13] MEDS ORDERED: POTASSIUM PHOS 10 MM in NA CHLORIDE 0.9% 250 ML IV ONE (21:06)
--- NOTE | 2022-03-13 21:17 | P.PN ---
Date of Service: 03/12/22 Vital Signs Temp Pulse Resp BP Pulse Ox 97.9 F 54 16 147/59 H 95 03/13/22 16:00 03/13/22 16:00 03/13/22 16:00 03/13/22 16:00 03/13/22 16:00 Medications Acetaminophen (Acetaminophen 650mg/Rect Supp) 650 mg TN Q6HP PRN PRN Reason: TEMP > 100' F Carbidopa/Levodopa (Carbidopa/Levodopa 25/250 Tab) 1 tab PO QID [facility] Last Admin: 03/13/22 16:50 Dose: Not Given Heparin Sodium (Porcine) (Heparin 5000 Unit/Ml 1 Ml Vial) 5,000 unit SQ Q12HR [facility] Last Admin: 03/13/22 08:32 Dose: 5,000 unit Hydralazine HCl (Hydralazine Hcl 20 Mg/Ml Vial) 5 mg IV Q4HP PRN PRN Reason: Indicated for SBP > 170 mmhg Last Admin: 03/13/22 08:33 Dose: 5 mg Dextrose/Sodium Chloride (Dextrose 5% O.45% Saline) 1,000 mls @ 50 mls/hr IV .Q20H [facility] Last Admin: 03/13/22 19:42 Dose: 1,000 mls Meropenem 1,000 mg/ Sodium (Chloride) 100 mls @ 200 mls/hr IV Q12HR [facility] Last Admin: 03/13/22 08:32 Dose: 100 mls Potassium Phosphate 10 mm/ (Sodium Chloride) 250 mls @ 83.333 mls/hr IV 1X ONE; Protocol Stop: 03/14/22 00:05 Memantine (Memantine Hcl 10 Mg Tablet) 5 mg FT BID [facility] Last Admin: 03/13/22 08:44 Dose: Not Given Mirtazapine (Mirtazapine 15 Mg Tab) 7.5 mg PO BEDTIME [facility] Last Admin: 03/12/22 20:12 Dose: Not Given Ondansetron HCl (Ondansetron 4 Mg/2 Ml Vial) 4 mg IV Q6HP PRN PRN Reason: NAUSEA / VOMITING Sodium Chloride (Flush Normal Saline 10 Ml) 10 ml IV BID [facility] Last Admin: 03/13/22 08:45 Dose: Not Given Microbiology Results 03/09/22 11:56 Catheterized Urine [place] Count - Final >100,000 CFU/ML. 03/09/22 11:56 Catheterized Urine - Final Escherichia Coli Esbl Assessment/ Plan: Nephrology No dyspnea No chest pain No acute events overnight Vitals, medications, blood work and imaging reviewed in the chart. NAD. NCAT. MMM. Neck supple. Normal respiratory effort. RRR. Abd ND. No C/C/E. No rash. AAO. Normal speech. Diffuse muscle atrophy. Stage II TREVOR CKD II with proteinuria -No NSAIDs HypoPO4 -Encourage nutrition HTN with CKD/ CHF -Hydralazine prn Diastolic CHF, chronic -Low sodium diet Moderate malnutrition Decreased functional ability -Consider protein supplementation Anemia in chronic illness -Monitor H&H E.coli Sepsis E.coli Acute Cystitis -Continue abx
[2022-03-13] MEDS ORDERED: POTASSIUM PHOS IN 0.9 % NACL 15 MMOL/250 ML BAG IV ONE (22:05)
[2022-03-13] MEDS ORDERED: DIGOXIN 0.25 MG/ML AMP IV ONE (23:00)
[2022-03-14] MEDS: D5 0.45 NS 1,000 ML IV SCH (00:29)
[2022-03-14] MEDS ORDERED: DIGOXIN 0.25 MG/ML AMP IV ONE (05:00)
[2022-03-14 06:06] LABS: Absolute Lymphocytes (CBC) 0.9 K/uL (0.7-4.9); Hematocrit 33.1 % (39.6-49.0); Lymphocytes % 12.4 % (15.3-44.8); MCV 90.8 fL (80-100); MPV 7.3 fL (7.6-11.3); RBC Red Blood Cell Count 3.65 M/uL (4.33-5.43)
[2022-03-14 06:08] LABS: Albumin 2.1 g/dL (3.4-5.0); Potassium 3.7 mmol/L (3.5-5.1); Uric Acid 5.4 mg/dL (3.5-7.2)
[2022-03-14] MEDS: CARBIDOPA/LEVODOPA 25/250 TAB PO SCH ×4 (07:34→22:09)
[2022-03-14] MEDS: MEMANTINE HCL 10 MG TABLET FT SCH ×2 (08:17→22:10)
[2022-03-14] MEDS: HEPARIN 5000 UNIT/ML 1 ML VIAL SQ SCH ×2 (08:59→22:09)
[2022-03-14] MEDS: Meropenem 1,000 MG in NA CHLORIDE 0.9% 100 ML IV SCH ×2 (08:59→22:08)
[2022-03-14] MEDS ORDERED: MORPHINE 2 MG/ML SYR IV PRN (12:33)
--- NOTE | 2022-03-14 12:38 | P.PN ---
Subjective Date of Service: 03/14/22 Chief Complaint: Severe sepsis, UTI, AMS, ARF Patient is severely demented. He is complaining of pain all over according to nursing staff No agitation reported. Physical Examination - Vital Signs Temperature: 98.6 F Blood Pressure: 114/75 Pulse: 113 Respirations: 16 Pulse Ox (%): 98 Assessment And Plan - Plan Physical exam GEN: Opens eyes to verbal stimuli, said a few words; laying with mouth wide open HEENT: Normal conjunctiva, sclera anicteric CV: Regular rate and rhythm, no edema Pulm: Nonlabored respirations on 2L NC ABD: Soft, nontender, non-distended Neuro: opens eyes to verbal stimuli, moves extremities, slight rigidity Problem List Severe sepsis secondary to UTI, pyelonephritis; ESBL with bacteremia TREVOR 2/2 severe sepsis / UTI Acute metabolic encephalopathy secondary to sepsis, UTI Chronic diastolic congestive heart failure Advanced dementia, Parkinson's with autonomic dysfunction afib, paroxysmal Severe protein calorie malnutrition Severe sepsis secondary to UTI, pyelonephritis: blood and urine: ESBL rocephin switched to merrem on 03/11 PICC ordered 03/[address] Olivera recommended 14 days of IV meropenem. Noted patient was on hospice before transfer to the emergency department. I spoke to the daughter who is hoping patient to go back on hospice. Social service consulted for arrangement for hospice in the snf. Acute renal failure secondary to severe sepsis/UTI Acute metabolic encephalopathy secondary to sepsis, UTI Resolved with IVF, suspect prerenal / sepsis nephrology is following. renal U/S: Bilateral renal cyst, no hydronephrosis. Chronic diastolic congestive heart failure: Appears compensated for CHF. Advanced dementia, Parkinson's Continue home medications when patient able to tolerate p.o. Speech therapy seen patient and recommended n.p.o. Patient may do pured diet and thin liquids if his wishes of family's wishes not to pursue alternate form of feeding. Anticipating patient will be discharged to hospice where he will continue pleasure feeding. Daughter declined PEG tube in line with patient's wishes. Afib, paroxysmal given lopressor on prior admission, had bradycardia and long pause; at that time cardiology recommended use of digoxin 0.25 if afib recurred monitor on telemertry. Severe protein calorie malnutrition NPO currently, risk for aspiration. I suspect patient is not too far from his baseline mental status. Resume Parkinson's medications. Code: DNR Dispo: Back to snf on hospice with 10 days of IV antibiotics for ESBL E. coli UTI. Time Spent Managing Pts Care (In Minutes): 28.
--- NOTE | 2022-03-14 15:21 | PN ---
Subjective: The patient is lying in bed, more alert and awake today, able to respond to simple comma nds. The patient denies any chest pain, back pain, or abdominal pain. Objective: Vital Signs: Temperature 98, pulse 113, respirations 16, blood pressure 114/75. Lungs: Basal crackles. Heart: S1, S2. Regular. Abdomen: Soft, nontender. Bowel sounds present. Extremities: No edema. Laboratory Data: WBC 7.1, hemoglobin 11, platelets 269. Chemistry shows BUN of 17, creatinine 1, al bumin of 2. Medications: The patient is currently on meropenem. See MAR for other medications. Assessment And Plan: Urosepsis secondary to Escherichia coli ESBL, bacteremia secondary to [place] ia coli ESBL. Continue IV antibiotic for total of 14 days, repeat blood cultures. Continue supporti ve care. Monitor for signs of infection. Anemia of chronic disease, moderate protein-calorie malnou rishment, myopathy. Consider PEG tube placement. We will follow the patient as needed. NF/MODL Voice ID: [id number] Report ID: [id number]
--- NOTE | 2022-03-14 19:02 | EKG ---
Test Date: 2022-03-13 Test Time: 22:17:59 Field Sales Executive: SREG MEASUREMENT RESULTS: Intervals: Rate: 130 [place]: QRSD: 86 QT: 352 QTc: 518 [place]: P: NC: QRS: -36 T: 6 INTERPRETIVE STATEMENTS: Atrial fibrillation with rapid ventricular response Left axis deviation Marked ST abnormality, possible inferior subendocardial injury Abnormal ECG Compared to ECG 03/09/2022 10:39:53 Left-axis deviation now present ST (T wave) deviation now present Sinus rhythm no longer present Electronically Signed On 03-14-22 19:00:30 EVENING OR NIGHT NURSE SUPERVISOR by Franco Preciado
[2022-03-14] MEDS: MIRTAZAPINE 15 MG TAB PO SCH (22:09)
[2022-03-15] MEDS: D5 0.45 NS 1,000 ML IV SCH ×2 (01:58→16:29)
[2022-03-15] MEDS: HYDRALAZINE HCL 20 MG/ML VIAL IV PRN (01:58)
[2022-03-15 07:57] LABS: Albumin 2.4 g/dL (3.4-5.0); Phosphorus 2.5 mg/dL (2.5-4.9); Potassium 3.6 mmol/L (3.5-5.1)
[2022-03-15] MEDS: CARBIDOPA/LEVODOPA 25/250 TAB PO SCH ×4 (09:39→22:11)
[2022-03-15] MEDS: HEPARIN 5000 UNIT/ML 1 ML VIAL SQ SCH ×2 (09:39→22:12)
[2022-03-15] MEDS: Meropenem 1,000 MG in NA CHLORIDE 0.9% 100 ML IV SCH ×2 (09:39→23:50)
[2022-03-15] MEDS: MEMANTINE HCL 10 MG TABLET FT SCH ×2 (09:39→22:11)
--- NOTE | 2022-03-15 11:10 | P.PN ---
Nephrology note: (S) Seen after several days, pt awake but non verbal, maintenance IVF still ordered but not running, CM notes reviewed and it appears discharge with hospice in the works. General: In no apparent distress (Frail, elderly, cachectic ) HEENT: Atraumatic, Normocephalic, Other (Dry oral mucosa) Neck: Supple Respiratory: Normal air movement (No rhonchi appreciated) Cardiovascular: No edema, Regular rate/rhythm (Cardiac murmur present) Gastrointestinal: Soft and benign, Non-distended, No tenderness Musculoskeletal: Contractures, Other (Muscle wasting) Neurological: Other (Awake, non verbal, not following commands) Conclusions/Impression: 1. Abnormal results of kidney function studies 2. Stage II TREVOR resolved 3. Pre-renal azotemia -resolved 4. ESBL Ecoli complicated UTI, site unspecified, POA 5. Microscopic hematuria unspecified 6. Abnormality of albumin 7. Accelerated HTN 8. Chronic diastolic CHF -Cr level downward trending nicely with IVF hydration, have left him on low dose maintenance rate as not taking in any PO intake -Brower remains present. -ESBL ecoli on UCx, Abx switched to Meropenem last week, dosing per ID -BP mod elevated, use PRN meds for accelerated HTN as needed Sulaiman Wagner MD, TED
--- NOTE | 2022-03-15 13:33 | P.PN ---
Subjective Date of Service: 03/15/22 Chief Complaint: Severe sepsis, UTI, AMS, ARF No major changes from yesterday. Patient still n.p.o. No agitation reported. Physical Examination - Vital Signs Temperature: 97.7 F Blood Pressure: 166/68 Pulse: 60 Respirations: 14 Pulse Ox (%): 95 Assessment And Plan - Plan Physical exam GEN: Awake, stares, minimally verbal. CV: Regular rate and rhythm, no edema Pulm: Bilateral upper airway transmitted sounds. ABD: Soft, nontender, non-distended Neuro: Awake, moves both upper extremities spontaneously. Problem List Severe sepsis secondary to UTI, pyelonephritis; ESBL with bacteremia TREVOR 2/2 severe sepsis / UTI Acute metabolic encephalopathy secondary to sepsis, UTI Chronic diastolic congestive heart failure Advanced dementia, Parkinson's with autonomic dysfunction afib, paroxysmal Severe protein calorie malnutrition Severe sepsis secondary to UTI, pyelonephritis: blood and urine: ESBL rocephin switched to merrem on 03/11 PICC ordered 03/[address] Olivera recommended 14 days of IV meropenem. Noted patient was recently on hospice. Daughter agrees to hospice. Social service consulted for arrangement for hospice in the custodial. Acute renal failure secondary to severe sepsis/UTI Acute metabolic encephalopathy secondary to sepsis, UTI Resolved with IVF, suspect prerenal / sepsis nephrology is following. renal U/S: Bilateral renal cyst, no hydronephrosis. Chronic diastolic congestive heart failure: Appears compensated for CHF. Advanced dementia, Parkinson's Patient is appropriate for hospice. According to the daughter patient don't like pureed, thickened liquids and has refused them in the past. Daughter request for pleasure feed on hospice. Continue home medications as tolerated Speech therapy seen patient and recommended n.p.o. Patient may do pured diet and thin liquids if his wishes of family's wishes not to pursue alternate form of feeding. Anticipating patient will be discharged to hospice where he will continue pleasure feeding. Daughter declined PEG tube in line with patient's wishes. Afib, paroxysmal given lopressor on prior admission, had bradycardia and long pause; at that time cardiology recommended use of digoxin 0.25 if afib recurred monitor on telemertry. Severe protein calorie malnutrition Pleasure feeding. At baseline mental status Continue Parkinson's medications. Code: DNR Dispo: Back to custodial on hospice with 10 days of IV antibiotics for ESBL E. coli UTI. Time Spent Managing Pts Care (In Minutes): 26.
[2022-03-15] MEDS: MIRTAZAPINE 15 MG TAB PO SCH (22:11)
[2022-03-16 02:17] VITALS: O2SAT 96
[2022-03-16 04:33] LABS: Albumin 2.4 g/dL (3.4-5.0); Phosphorus 2.7 mg/dL (2.5-4.9); Potassium 3.7 mmol/L (3.5-5.1)
[2022-03-16] MEDS: HEPARIN 5000 UNIT/ML 1 ML VIAL SQ SCH (08:10)
[2022-03-16] MEDS: Meropenem 1,000 MG in NA CHLORIDE 0.9% 100 ML IV SCH (09:00)
[2022-03-16] MEDS: CARBIDOPA/LEVODOPA 25/250 TAB PO SCH ×2 (10:13→13:00)
[2022-03-16] MEDS: MEMANTINE HCL 10 MG TABLET FT SCH (10:13)
--- NOTE | 2022-03-16 10:44 | P.PN ---
Subjective Date of Service: 03/16/22 Chief Complaint: Severe sepsis, UTI, AMS, ARF No new complaint Patient lost his IV access. No agitation reported. Physical Examination - Vital Signs Temperature: 97.1 F Blood Pressure: 152/80 Pulse: 132 Respirations: 20 Pulse Ox (%): 97 Assessment And Plan - Plan Physical exam GEN: Awake, stares, minimally verbal. CV: Regular rate and rhythm, no edema Pulm: Bilateral upper airway transmitted sounds. ABD: Soft, nontender, non-distended Neuro: Awake, moves both upper extremities spontaneously. Problem List Severe sepsis secondary to UTI, pyelonephritis; ESBL with bacteremia TREVOR 2/2 severe sepsis / UTI Acute metabolic encephalopathy secondary to sepsis, UTI Chronic diastolic congestive heart failure Advanced dementia, Parkinson's with autonomic dysfunction afib, paroxysmal Severe protein calorie malnutrition Severe sepsis secondary to UTI, pyelonephritis: blood and urine: ESBL rocephin switched to merrem on 03/11 Waiting for PICC line placement. Seen by ID Dr. Olivera recommended 14 days of IV meropenem. Noted patient was recently on hospice. Daughter agrees to hospice. Social service consulted for arrangement for hospice in the intermediate. Acute renal failure secondary to severe sepsis/UTI Acute metabolic encephalopathy secondary to sepsis, UTI Resolved with IVF, suspect prerenal / sepsis nephrology is following. renal U/S: Bilateral renal cyst, no hydronephrosis. Chronic diastolic congestive heart failure: Appears compensated for CHF. Advanced dementia, Parkinson's Patient is appropriate for hospice. According to the daughter patient doesn't like pureed or thickened liquids and has refused them in the past. Daughter request for pleasure feed on hospice. Continue home medications as tolerated Speech therapy seen patient and recommended n.p.o. Patient may do pured diet and thin liquids if his wishes of family's wishes not to pursue alternate form of feeding. Anticipating patient will be discharged to hospice where he will continue pleasure feeding. Daughter declined PEG tube in line with patient's wishes. Afib, paroxysmal given lopressor on prior admission, had bradycardia and long pause; Digoxin for rate control. Severe protein calorie malnutrition Pleasure feeding. At baseline mental status Continue Parkinson's medications. Code: DNR Dispo: Back to intermediate on hospice with 10 days of IV antibiotics for ESBL E. coli UTI. Time Spent Managing Pts Care (In Minutes): 26.
[2022-03-16 12:21] VITALS: BP 123/62; TEMP 97.5
[2022-03-16] MEDS: D5 0.45 NS 1,000 ML IV SCH (12:29)
--- NOTE | 2022-03-16 12:41 | RAD REPORT ---
EXAM DESCRIPTION: RAD - Chest Single View - 03/16/2022 12:35 pm CLINICAL HISTORY: Picc line placement COMPARISON: Chest Single View dated 03/09/2022; Chest Single View dated 08/14/2021; Chest Single View dated 06/14/2021; Chest Single View dated 10/14/2020 FINDINGS: Lines: None. Lungs: No evidence of edema or pneumonia. Pleural: No significant pleural effusions or pneumothorax. Cardiac: Cardiomegaly. Mediastinum: Within normal limits. Bones: No acute fractures. Other: The PICC tip is difficult to visualize. The likely terminates near the superior cavoatrial apolinar ction. IMPRESSION: No acute cardiopulmonary disease. PICC tip probably terminates at the superior cavoatria l junction.
--- NOTE | 2022-03-16 13:16 | P.DS ---
Admission Date: 03/09/22 Discharge Date: 03/16/22 Disposition: TRANSFER TO SNF Discharge Condition: FAIR Reason for Admission: Severe sepsis, UTI, AMS, ARF Brief History of Present Illness: 81-year-old male with history of advanced dementia, Parkinson, chronic diastolic congestive heart failure, hypertension presents to the emergency department for altered mental status. Patient from alf, they report he has been a ltered x3 days responsive to loud verbal or painful stimulus only. Patient was evaluated in the emergency department his labs were significant for 13% bands, creatinine 2.04, GFR 32 BNP 4147 urinalysis with 1+ leuk esterase urine microscopic with greater than 50 bacteria greater than 50 white blood cell greater than 50 red blood cell chest x-ray was obtained which revealed mild bilateral pulmonary opacities are present with near absent pulmonary edema or pneumonia the heart is mildly enlarged in size with no displaced fractures. CT head without contrast was performed which showed no acute intracranial abnormality. Mild bilateral mastoid effusions. CT abdomen pelvis was also obtained without IV contrast which showed no acute intra-abdominal or pelvic finding. Mild increased left perinephric stranding which could indicate infection. No hydronephrosis. Circumferential bladder wall thickening which may be secondary to infection or chronic bladder outlet obstruction. Patient was given IV antibiotics and admitted for further management. Hospital Course: Diagnosis Severe sepsis secondary to UTI, pyelonephritis; ESBL with bacteremia TREVOR 2/2 severe sepsis / UTI Acute metabolic encephalopathy secondary to sepsis, UTI Chronic diastolic congestive heart failure Advanced dementia, Parkinson's with autonomic dysfunction afib, paroxysmal Severe protein calorie malnutrition Severe sepsis secondary to UTI, pyelonephritis: blood and urine culture grew: ESBL Initially on Rocephin and later switched to merrem on 03/11 Seen by JANEE Olivera recommended 14 days of IV meropenem. PICC line placed for IV antibiotic Noted patient was recently on hospice. Daughter agrees to initiate hospice. Patient has been accepted to hospice at the alf. He will complete 14 days of IV meropenem on hospice. Acute renal failure secondary to severe sepsis/UTI Acute metabolic encephalopathy secondary to sepsis, UTI Resolved with IVF, suspect prerenal / sepsis nephrology saw patient and assisted with management. renal U/S: Bilateral renal cyst, no hydronephrosis. Chronic diastolic congestive heart failure: He was compensated for CHF throughout the hospital stay. Advanced dementia, Parkinson's Patient is appropriate for hospice. According to the daughter patient doesn't like pureed or thickened liquids and has refused them in the past. Daughter requested for pleasure feed on hospice. Continued home medications as tolerated Speech therapy saw patient and recommended n.p.o. Patient may do pured diet and thin liquids if his wishes or family's wishes not to pursue alternate form of feeding. Daughter declined PEG tube in line with patient's wishes. Patient accepted to the alf with hospice. Afib, paroxysmal given lopressor on prior admission, had bradycardia and long pause; Digoxin was used for rate control. Severe protein calorie malnutrition Started on pleasure feeding. At baseline mental status Appropriate for hospice. Vital Signs/Physical Exam: Temp Pulse Resp BP Pulse Ox 97.5 F 68 17 123/62 99 03/16/22 12:00 03/16/22 12:00 03/16/22 12:00 03/16/22 12:00 03/16/22 12:00 General: Other (Awake, frail-appearing) HEENT: Other (Keeps mouth open all the time.) Neck: JVD not distended Respiratory: Clear to auscultation bilaterally, Normal air movement Cardiovascular: No edema, Regular rate/rhythm Gastrointestinal: Soft and benign, Non-distended, No tenderness Musculoskeletal: No swelling Integumentary: No cyanosis Neurological: Dementia Laboratory Data at Discharge: WBC 7.10 K/uL (4.3-10.9) 03/14/22 05:22 Hgb 11.0 g/dL (13.6-17.9) L 03/14/22 05:22 Hct 33.1 % (39.6-49.0) L 03/14/22 05:22 Plt Count 269 K/uL (152-406) D 03/14/22 05:22 Sodium 142 mmol/L (136-145) 03/16/22 03:27 Potassium 3.7 mmol/L (3.5-5.1) 03/16/22 03:27 BUN 19 mg/dL (7-18) H 03/16/22 03:27 Creatinine 1.12 mg/dL (0.55-1.3) 03/16/22 03:27 Glucose 79 mg/dL (74-106) 03/16/22 03:27 Uric Acid 5.4 mg/dL (3.5-7.2) 03/14/22 05:22 Phosphorus 2.7 mg/dL (2.5-4.9) 03/16/22 03:27 Magnesium 2.3 mg/dL (1.8-2.4) 03/13/22 05:37 Total Bilirubin 0.3 mg/dL (0.2-1.0) 03/12/22 03:26 AST 15 U/L (15-37) 03/12/22 03:26 ALT 11 U/L (12-78) L 03/12/22 03:26 Alkaline Phosphatase 93 U/L (45-117) 03/12/22 03:26 Triglycerides 182 mg/dL (<150) H 03/10/22 06:08 Cholesterol 128 mg/dL (<200) 03/10/22 06:08 HDL Cholesterol 21 mg/dL (40-60) L 03/10/22 06:08 Cholesterol/HDL Ratio 6.10 03/10/22 06:08 Home Medications: Aspirin Chewable [Aspirin Chewable*] 81 mg PO DAILY 03/10/22 Atorvastatin Calcium 20 mg PO BEDTIME 03/10/22 Bisacodyl [Laxative Suppository] 10 mg RC DAILY PRN 03/10/22 Carbidopa/Levodopa [Carbidopa-Levo 25-250 mg Odt] 1 each PO QID 03/10/22 Cetirizine HCl [Zyrtec] 10 mg PO BEDTIME 03/10/22 Clopidogrel Bisulfate [Plavix] 75 mg PO DAILY 03/10/22 Docusate Sodium 100 mg PO BID PRN 03/10/22 Hydralazine [Apresoline*] 10 mg PO DAILY 03/10/22 Mag Hydroxide 8% [Milk Of Magnesia*] 30 ml PO EVERY 3RD DAY 03/10/22 Memantine HCl [Namenda] 5 mg PO BID 03/10/22 Mirtazapine 1 tab PO BEDTIME 03/10/22 Mv-Mn/Om3/Dha/Epa/Fish/Lut/Saurav [Ocuvite Adult 50 Plus Softgel] 1 each PO BID 03/10/22 Polyethylene Glycol 3350 [Miralax] 1 packet PO DAILY 03/10/22 Pramipexole Di-HCl [Pramipexole Dihydrochloride] 0.125 mg PO TID 03/10/22 Meropenem [Merrem 1 GM/100 ML NS IVPB] 1 gm IV Q12H #20 amp 03/16/22 New Medications: Meropenem [Merrem 1 GM/100 ML NS IVPB] 1 gm IV Q12H #20 amp Diet: Regular (Pleasure feeding) Activity: Fall precautions Followup: Ladan Kwon MD [Primary Care Provider] - Time spent managing pt's care (in minutes): 38
--- NOTE | 2022-03-16 17:33 | PN ---
Subjective: The patient lying in bed. No new acute event. Chart reviewed. Patient is going to [facility] home and going to be transferred to hospice care. Objective: Vital Signs: Temperature 97, pulse 130, respirations 20, blood pressure 152/80. Lungs: Basal crackles. Heart: S1, S2. Regular. Abdomen: Soft, nontender. Bowel sounds present. Extremities: No edema. Laboratory Data: Reviewed. Assessment And Plan: Bacteremia secondary to Escherichia coli, ESBL urinary tract infection and seps is secondary to Escherichia coli and ESBL. Continue meropenem. Continue supportive care and wound c are. I agree with the plan of hospice. We will follow the patient as needed. Otherwise, we will di scontinue our service at this time. JENNA/MODL Voice ID: [id number] Report ID: [id number]
== END 2022-03-16 15:53 | disposition hospice, inpatient (51) | DRG 871 ==
LOC: ER 09:53 → ERHOLD 14:54 → UNDOADMIN 14:54 → ERHOLD 19:36 → 2ND 21:19
PROVIDERS: ADMIT Hospitalist; ATTEND Internal Medicine
PROC: 02HV33Z Insertion of Infusion Device into Superior Vena Cava, Percutaneous Approach (ICD-10-PCS; principal; 2022-03-16)
DX: A41.51 Sepsis due to Escherichia coli [E. coli] (principal); E43 Unspecified severe protein-calorie malnutrition; G93.41 Metabolic encephalopathy; N17.9 Acute kidney failure, unspecified; I50.32 Chronic diastolic (congestive) heart failure; N12 Tubulo-interstitial nephritis, not specified as acute or chronic; R64 Cachexia; Z16.12 Extended spectrum beta lactamase (ESBL) resistance; I13.0 Hypertensive heart and chronic kidney disease with heart failure and stage 1 through stage 4 chronic kidney disease, or unspecified chronic kidney disease; N18.2 Chronic kidney disease, stage 2 (mild); D63.1 Anemia in chronic kidney disease; K21.9 Gastro-esophageal reflux disease without esophagitis; G20 Parkinson's disease; E78.5 Hyperlipidemia, unspecified; E83.39 Other disorders of phosphorus metabolism; I48.0 Paroxysmal atrial fibrillation; G72.9 Myopathy, unspecified; D63.8 Anemia in other chronic diseases classified elsewhere; F03.90 Unspecified dementia, unspecified severity, without behavioral disturbance, psychotic disturbance, mood disturbance, and anxiety; R65.20 Severe sepsis without septic shock; R31.29 Other microscopic hematuria; Z66 Do not resuscitate; Z51.5 Encounter for palliative care; Z79.82 Long term (current) use of aspirin; Z90.49 Acquired absence of other specified parts of digestive tract; Z68.22 Body mass index [BMI] 22.0-22.9, adult; Z79.02 Long term (current) use of antithrombotics/antiplatelets; Z79.899 Other long term (current) drug therapy; Z85.828 Personal history of other malignant neoplasm of skin; Z20.822 Contact with and (suspected) exposure to COVID-19
CPT/HCPCS: 36415; 36569; 51702; 70450; 71045; 74176; 76770; 80048; 80053; 80061; 80069; 80076; 81003; 81015; 82306; 82550; 83605; 83735; 83880; 84100; 84439; 84443; 84484; 84550; 85025; 85027; 87040; 87077; 87086; 87088; 87186; 87205; 87811; 92526; 93005; 96374; 99285; J0360; J1160; J1644; J2185; J2270; J7030; J7040; J7799